=== PATIENT | female | born 1995 | race Caucasian/White ===

== ENCOUNTER 2023-03-03 08:05 | Observation (INO) | payer OTHER, SELFPAY ==
[2023-03-03] VITALS (36 sets, daily range): BP systolic 94–158; BP diastolic 63–85; PULSE 74–121; RESP 12–28; TEMP 36.9–37.2; O2SAT 97–100; BMI 27.4; BMI 28.1
--- NOTE | 2023-03-03 08:31 | ECG_ITS ---
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
--- NOTE | 2023-03-03 08:31 | ED_ITS ---
HPI - Nausea/Vomiting/Diarrhea General Chief complaint: Nausea/Vomiting/Diarrhea Stated complaint: DEHYDRATION/NAUSEA/BLACK OUTS Time Seen by Provider: 03/03/23 08:09 Source: patient Limitations: no limitations History of Present Illness HPI Narrative: 27-year-old female presents for nausea and vomiting which began yesterday. Home Zofran did not help much. No hematemesis. No fever. She believes she passed out at home as well, no injury. No hematemesis and no diarrhea. Related Data Allergies Allergy/AdvReac Type Severity Reaction Status Date / Time nickel Allergy Unknown Verified 03/03/23 08:31 Review of Systems ROS Narrative A ten point review of systems is negative except as noted above. Exam Narrative Exam Narrative: Nurses note and vital signs reviewed and patient is not hypoxic. General: The patient appears well and in no apparent distress. Patient is resting comfortably on cart. Skin: Warm, dry, no pallor noted. There is no rash noted. Head: Normocephalic, atraumatic Eye: Normal conjunctiva, no drainage Ears, Nose, Mouth, and Throat: oral mucosa is moist. Nares patent. Cardiovascular: Regular Rate and Rhythm, mildly tachycardic initially Respiratory: Patient is in no distress, no accessory muscle use, lungs are clear to auscultation, no wheezing, rales or rhonchi Back: non-tender GI: no tenderness to palpation, no masses appreciated. No rebound, guarding, or rigidity noted. Musculoskeletal: The patient has no evidence of calf tenderness, no pitting edema, symmetrical pulses noted bilaterally Neurological: A&O, normal speech Psychiatric: Cooperative Constitutional Vital Signs, click to edit/add: Last Vital Signs Temp 98.6 F 03/03/23 08:12 Pulse 102 H 03/03/23 12:10 Resp 23 03/03/23 12:10 BP 112/75 03/03/23 12:00 Pulse Ox 98 03/03/23 08:20 O2 Del Method Room Air 03/03/23 08:12 Course Vital Signs Vital signs: Vital Signs Temperature 98.6 F 03/03/23 08:12 Pulse Rate 120 H 03/03/23 08:12 Respiratory Rate 21 03/03/23 08:12 Blood Pressure 114/84 03/03/23 08:12 Pulse Oximetry 97 03/03/23 08:12 Oxygen Delivery Method Room Air 03/03/23 08:12 Temperature 98.6 F 03/03/23 08:12 Pulse Rate 102 H 03/03/23 12:10 Respiratory Rate 23 03/03/23 12:10 Blood Pressure 112/75 03/03/23 12:00 Pulse Oximetry 98 03/03/23 08:20 Oxygen Delivery Method Room Air 03/03/23 08:12 MDM - Nausea/Vomiting/Diarrhea MDM Narrative Medical decision making narrative: gallbladder ultrasound shows cholelithiasis but no acute cholecystitis. Bilirubin is elevated at 3.5 and LFTs are mildly elevated. Case discussed with and the patient will be admitted for MRCP. Treatment diagnosis and follow-up were discussed with the patient and her family. Differential Diagnosis Differential diagnosis: Likely gastroenteritis and other (cholelithiasis, acute cholecystitis, pancreatitis) Lab Data Attestation: I reviewed the patient's lab results. Labs: Lab Results 03/03/23 Range/Units 08:28 WBC 13.6 H (4.0-11.0) 10^3/uL RBC 4.75 (4.20-5.40) 10^6/uL Hgb 16.3 H (12.0-16.0) g/dL Hct 48.0 (36.0-48.0) % MCV 101.1 H (81.0-99.0) fL MCH 34.3 H (26.7-34.0) pg MCHC 34.0 (29.9-35.2) g/dL RDW 12.0 (11.0-15.0) % Plt Count 336 (150-450) 10^3/uL MPV 10.0 (9.5-13.5) fL Neut % (Auto) 87.8 H (43.0-75.0) % Lymph % (Auto) 6.5 L (20.5-60.0) % [place] % (Auto) 4.9 (1.7-12.0) % Eos % (Auto) 0.0 L (0.9-7.0) % Baso % (Auto) 0.4 (0.2-2.0) % Neut # (Auto) 11.9 H (1.4-6.5) 10^3/uL Lymph # (Auto) 0.9 L (1.2-3.8) 10^3/uL [place] # (Auto) 0.7 (0.3-0.8) 10^3/uL Eos # (Auto) 0.0 (0.0-0.7) 10^3/uL Baso # (Auto) 0.1 (0.0-0.1) 10^3/uL Abs Immat Gran (auto) 0.06 H (0.00-0.03) 10^3/uL Imm/Tot Granulo (auto) 0.4 (0.0-0.5) % Sodium 138 (136-145) mmol/L Potassium 3.5 (3.5-5.1) mmol/L Chloride 97 L (98-107) mmol/L Carbon Dioxide 26.0 (21.0-32.0) mmol/L Anion Gap 18.5 BUN 6.0 L (7.0-18.0) mg/dL Creatinine 0.95 (0.55-1.02) mg/dL Est GFR ( Amer) >60 (>=60) Est GFR (Non-Af Amer) >60 (>=60) BUN/Creatinine Ratio 6.3 Glucose 98 (74-106) mg/dL Calcium 9.7 (8.5-10.1) mg/dL Total Bilirubin 3.5 H (0.2-1.0) mg/dL Direct Bilirubin 0.6 H* (0.0-0.2) mg/dL AST 161 H (15-37) U/L ALT 113 H (14-59) U/L Alkaline Phosphatase 104 (46-116) U/L Total Protein 8.1 (6.4-8.2) g/dL Albumin 4.0 (3.4-5.0) g/dL Globulin 4.1 g/dL Albumin/Globulin Ratio 1.0 Serum HCG, Qual Negative (NEGATIVE) Discharge Plan Discharge Chief Complaint: Nausea/Vomiting/Diarrhea Clinical Impression: Elevated bilirubin, Abdominal pain, Cholelithiasis Patient Disposition: Admitted As Inpatient Time of Disposition Decision: 13:20 Condition: Good Referrals: CAMELIA ROGER [Primary Care Provider] - 1 week
[2023-03-03] MEDS: 0.9 % SODIUM CHLORIDE 1,000 ML 1000 ML IV (08:43)
[2023-03-03] MEDS: ONDANSETRON PF 4 MG/2 ML VIAL IV (08:44)
[2023-03-03 08:59] LABS: Basophils Absolute Auto 0.1 10^3/uL (0.0-0.1); Basophils Percent Auto 0.4 % (0.2-2.0); Hemoglobin 16.3 g/dL (12.0-16.0); Immature Granulocytes Abs Auto 0.06 10^3/uL (0.00-0.03); Immature Granulocytes Pct Auto 0.4 % (0.0-0.5); Lymphocytes Absolute Auto 0.9 10^3/uL (1.2-3.8); Lymphocytes Percent Auto 6.5 % (20.5-60.0); Mean Corpuscular Hemoglobin 34.3 pg (26.7-34.0); Mean Corpuscular Volume 101.1 fL (81.0-99.0); Monocytes Absolute Auto 0.7 10^3/uL (0.3-0.8); Monocytes Percent Auto 4.9 % (1.7-12.0); Neutrophils Absolute Auto 11.9 10^3/uL (1.4-6.5); Neutrophils Percent Auto 87.8 % (43.0-75.0); Platelet Count 336 10^3/uL (150-450); Red Blood Count 4.75 10^6/uL (4.20-5.40); White Blood Count 13.6 10^3/uL (4.0-11.0)
[2023-03-03 09:09] LABS: Anion Gap 18.5; BUN Creatinine Ratio 6.3; Calcium 9.7 mg/dL (8.5-10.1); Chloride 97 mmol/L (98-107); Estimated GFR (African America >60 (>=60); Estimated GFR (Non-African Ame >60 (>=60); Glucose 98 mg/dL (74-106); Potassium 3.5 mmol/L (3.5-5.1); Sodium 138 mmol/L (136-145)
[2023-03-03 09:14] LABS: Alanine Aminotransferase 113 U/L (14-59); Alkaline Phosphatase 104 U/L (46-116); Aspartate Amino Transferase 161 U/L (15-37); Bilirubin Total 3.5 mg/dL (0.2-1.0); Globulin 4.1 g/dL; Total Protein 8.1 g/dL (6.4-8.2)
[2023-03-03 09:15] LABS: Bilirubin Direct 0.6 mg/dL (0.0-0.2)
[2023-03-03 09:17] LABS: HCG Qualitative NEGATIVE (NEGATIVE)
--- NOTE | 2023-03-03 09:40 | US_ITS ---
The [address] [address] Patient Name: CHRISTINA NUNEZ MRN: [id number] date: 1995 Sex: F Assigned Patient Location: ER Current Patient Location: ER Accession/Order Number: [id number] Exam Date: 03/03/2023 09:59 Report Date: 03/03/2023 11:36 At the request of: LILLY BAUMAN Procedure: US right upper quadrant EXAMINATION: US right upper quadrant HISTORY: nauseous, elevated bilirubin COMPARISON: No relevant comparison available. TECHNIQUE: Transabdominal evaluation of the right upper quadrant. FINDINGS: LIVER: Normal size and echotexture. Color Doppler demonstrates patent hepatic veins. PORTAL VEIN: Duplex Doppler demonstrates normal hepatopetal flow pattern with flow velocity averaging 28 cm/s. GALLBLADDER: Small amount of tiny stones layering within the gallbladder. No wall thickening, free fluid, or tenderness while imaging over the gallbladder. BILIARY: No abnormal dilation or stones. Common bile duct diameter is within normal limits. PANCREASE: No visible mass, abnormal atrophy, or duct dilation. KIDNEY: No hydronephrosis. No visible mass or stones. Size: 8.0 x 4.0 x 4.1 cm US/US right upper quadrant IMPRESSION: 1. Cholelithiasis. No ultrasound evidence of acute cholecystitis. Electronically authenticated by: JENNY VALENZUELA Date: 03/03/2023 11:36
[2023-03-03 13:16] LABS: Amylase 38 U/L (25-115)
--- NOTE | 2023-03-03 14:35 | MR_ITS ---
The [address] [address] Patient Name: CHRISTINA NUNEZ MRN: [id number] date: 1995 Sex: F Assigned Patient Location: MS Current Patient Location: MS Accession/Order Number: [id number] Exam Date: 03/03/2023 16:50 Report Date: 03/03/2023 17:49 At the request of: GAURAV QUIROGA Procedure: MR abdomen wo con EXAMINATION: MR abdomen wo con 03/03/2023 2:40 PM PDT HISTORY: MRCP TECHNIQUE: MRI of the abdomen was performed using multiplanar T2-weighted sequences without administration of intravenous contrast material. MRCP protocol was utilized. 3-D imaging was performed. COMPARISON: Right upper quadrant ultrasound 03/03/2023. CT abdomen/pelvis 07/18/2018. FINDINGS: Lung: Normal. Heart: Normal. ABDOMEN: Biliary Tree: No intra or extra-hepatic biliary ductal dilation. No strictures. Gallbladder: Present and normal. Pancreas: Grossly normal noncontrast appearance of the parenchyma. The pancreatic duct is normal in caliber. No aberrant ductal anatomy is visualized. LIMITED EVALUATION OF REMAINDER OF ABDOMINAL ORGANS: Liver: -Hepatic steatosis. -Ill-defined mildly T2 hyperintense lesion in the anterior periphery of the right lobe of liver measuring 15 mm (series 8001 image 10), not well seen on the CT from 07/18/2018. This lesion demonstrates minimal T1 hypointensity. Spleen: Normal. Adrenal glands: Normal. Kidneys and Ureters: Normal. Stomach/visualized small bowel and colon: No obstruction. Vasculature: Within normal limits. Intra-abdominal lymph nodes: None pathologically enlarged. Ascites: None present. MUSCULOSKELETAL: No acute osseous findings. MR/MR abdomen wo con IMPRESSION: 1. No biliary ductal dilatation or evidence of choledocholithiasis. 2. Nonspecific ill-defined T2 hyperintensity in the right lobe liver measuring up to 15 mm. Recommend liver protocol MRI with and without Eovist contrast for further evaluation. Electronically authenticated by: BIRD CARVER Date: 03/03/2023 17:49
--- NOTE | 2023-03-03 15:00 | P.GSCN_ITS ---
History of Present Illness Consult details Consult date: 03/03/23 Reason for consult: gallstones Narrative: Patient is a 27-year-old female who is seen today for evaluation of abdominal pain and findings of cholelithiasis. She reports episodes of right upper quadra nt pain with associated nausea and vomiting beginning three months ago. This is been intermittent. Often occurs after meals. Today she again developed abdominal pain which had worsened and subsequent presented to the emergency department for evaluation. Lab studies as well as gallbladder ultrasound were obtained. Ultrasound revealed small gallstones. There was no wall thickening or duct dilatation. Total bilirubin is elevated at 3.5 and her white count was 13.6. She also had slight elevation of her transaminases. She essentially now admitted for MRCP and further evaluation. She denies any history of jaundice or pancreatitis. Review of Systems ROS Status of ROS 10 or more systems reviewed and unremarkable except as noted in history and below Meds Home Medications and Allergies Allergies Allergy/AdvReac Type Severity Reaction Status Date / Time nickel Allergy Unknown Verified 03/03/23 08:31 Exam Constitutional Vital Signs, click to edit/add: Last Vital Signs Temp 98.6 F 03/03/23 08:12 Pulse 102 H 03/03/23 12:10 Resp 23 03/03/23 12:10 BP 112/75 03/03/23 12:00 Pulse Ox 98 03/03/23 08:20 O2 Del Method Room Air 03/03/23 08:12 Common normals: no apparent distress General appearance: cooperative [facility] Common normals: normocephalic Neck & C-Spine Common normals: supple Chest Common normals: inspection of chest normal Respiratory Common normals: normal respiratory effort GI Other: Abdomen is soft with mild right upper quadrant tenderness Extremity Common normals: normal to inspection and full ROM Neuro Common normals: oriented x3 Results Labs Labs: Abnormal lab results 03/03/23 Range/Units 08:28 WBC 13.6 H (4.0-11.0) 10^3/uL Hgb 16.3 H (12.0-16.0) g/dL MCV 101.1 H (81.0-99.0) fL MCH 34.3 H (26.7-34.0) pg Neut % (Auto) 87.8 H (43.0-75.0) % Lymph % (Auto) 6.5 L (20.5-60.0) % Eos % (Auto) 0.0 L (0.9-7.0) % Neut # (Auto) 11.9 H (1.4-6.5) 10^3/uL Lymph # (Auto) 0.9 L (1.2-3.8) 10^3/uL Abs Immat Gran (auto) 0.06 H (0.00-0.03) 10^3/uL Chloride 97 L (98-107) mmol/L BUN 6.0 L (7.0-18.0) mg/dL Total Bilirubin 3.5 H (0.2-1.0) mg/dL Direct Bilirubin 0.6 H* (0.0-0.2) mg/dL AST 161 H (15-37) U/L ALT 113 H (14-59) U/L Diabetes panel 03/03/23 Range/Units 08:28 Sodium 138 (136-145) mmol/L Potassium 3.5 (3.5-5.1) mmol/L Chloride 97 L (98-107) mmol/L Carbon Dioxide 26.0 (21.0-32.0) mmol/L BUN 6.0 L (7.0-18.0) mg/dL Creatinine 0.95 (0.55-1.02) mg/dL Glucose 98 (74-106) mg/dL Calcium 9.7 (8.5-10.1) mg/dL AST 161 H (15-37) U/L ALT 113 H (14-59) U/L Alkaline Phosphatase 104 (46-116) U/L Total Protein 8.1 (6.4-8.2) g/dL Albumin 4.0 (3.4-5.0) g/dL Calcium panel 03/03/23 Range/Units 08:28 Calcium 9.7 (8.5-10.1) mg/dL Albumin 4.0 (3.4-5.0) g/dL Pituitary panel 03/03/23 Range/Units 08:28 Sodium 138 (136-145) mmol/L Potassium 3.5 (3.5-5.1) mmol/L Chloride 97 L (98-107) mmol/L Carbon Dioxide 26.0 (21.0-32.0) mmol/L BUN 6.0 L (7.0-18.0) mg/dL Creatinine 0.95 (0.55-1.02) mg/dL Glucose 98 (74-106) mg/dL Calcium 9.7 (8.5-10.1) mg/dL Adrenal panel 03/03/23 Range/Units 08:28 Sodium 138 (136-145) mmol/L Potassium 3.5 (3.5-5.1) mmol/L Chloride 97 L (98-107) mmol/L Carbon Dioxide 26.0 (21.0-32.0) mmol/L BUN 6.0 L (7.0-18.0) mg/dL Creatinine 0.95 (0.55-1.02) mg/dL Glucose 98 (74-106) mg/dL Calcium 9.7 (8.5-10.1) mg/dL Total Bilirubin 3.5 H (0.2-1.0) mg/dL AST 161 H (15-37) U/L ALT 113 H (14-59) U/L Alkaline Phosphatase 104 (46-116) U/L Total Protein 8.1 (6.4-8.2) g/dL Albumin 4.0 (3.4-5.0) g/dL All other labs normal. Imaging Abdominal ultrasound report/results: image reviewed Assessment and Plan Assessment and Plan (1) Elevated bilirubin: (2) Cholelithiasis: Plan As noted above with patient's elevated bilirubin there is some concern of a common bile duct stone. We will therefore obtain an MRCP for further evaluation. Further recommendations will be pending imaging results. Patient may have a clear liquid diet today and this was discussed with the hospitalist.
--- NOTE | 2023-03-03 15:12 | P.HP_ITS ---
Patient not seen on day of admission by physician. Agree with assessment and plan. Admitted with pain and elevated bilirubin. General surgery consulted and will obtain MRCP. Diagnosis: 1. Elevated bilirubin 2. Abdominal pain 3. Cholelithiasis 4. Dehydration H&P: HPI History of Present Illness Chief complaint: INTRACTABLE NV/ABDOMINAL PAIN/ELEV BILI Narrative: Date/Time of Exam: 03/03/23 4485 This is a 27-year-old female patient with a benign past medical history, who presented to the ED this morning due to intractable nausea and vomiting and abdominal pain. The patient reports that she has had intermittent waxing and waning episodes of RUQ abdominal discomfort and nausea and vomiting for the last 2 months. She was seen twice in the ED in [place] and no definitive diagnosis was made. A CT of the abdomen was reportedly done but we do not have that imaging study available at this time. She began to experience colicky right upper quadrant abdominal discomfort again around 10:00 last night followed by nausea and vomiting. She took oral Zofran that has been prescribed but c ontinued to suffer episodes of emesis with associated heartburn. After having a large emesis at around 7:00 this morning she presented to the ED for further evaluation. Work-up in the ED revealed mild leukocytosis (13.6), significantly elevated total bili (3.5) with elevated direct bili as well (0.6), AST/ALT were also elevated (161/113), Alk Phos WNL. A RUQ ultrasound was obtained which did not evidence biliary obstruction but did note cholelithiasis without acute cholecystitis. Dr. Gonzalez, general surgeon, was contacted by the ED regarding this patient. He recommended the patient be admitted for an MRCP and possible surgical intervention. She is being admitted to the hospitalist service as an inpatient for suspected biliary obstruction, intractable nausea and vomiting and abdominal pain. At the time of my exam the patient is resting in bed. She is not in any acute distress. She reports that her nausea has been adequately adequately controlled with IV Zofran since arrival in the ED. She continues to have intermittent colicky pain and diffuse generalized tenderness of the right lower quadrant. The patient expresses frustration that this has been going on for some time wi thout a diagnosis. She is aware that surgical intervention and/or transfer to a higher level of care with GI availability is possible. She denies any CP, SOB, palpitations, F/C, recent diarrhea. Review of Systems ROS Status of ROS 10 or more systems reviewed and unremarkable except as noted in history and below PFSH PFSH Surgical History Hx of appendectomy ?Z90.49 - Acquired absence of other specified parts of digestive tract (ICD- 10) Family History Grandfather Family history of cancer Grandfather No problems noted. Grandmother Family history of cancer Family history of myocardial infarction Social History Within the past year, how often did you have a drink containing alcohol: 2-3 times a week Within the past year, how many standard drinks containing alcohol did you have on a typical day: 1 or 2 Within the past year, how often did you have six or more drinks on one occasion: never Total score: 0 Score interpretation: Questions 2 and 3 are 0. It can be assumed that the patient's drinking is below the recommended limits. However, please confirm the accuracy of the patient's alcohol intake over the last few months. 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 Known occupational exposures/hazards: No Highest level of school completed/degree received: some college, no degree Do you want help with school or training: No Are you now , , , , never or living with a partner: In a typical week, how many times do you talk on the telephone with family, friends, or neighbors: 3 or more times per week How often do you get together with friends or relatives: 3 or more times per week How often do you attend mormonism or hindu services: never Do you belong to any clubs or organizations such as mormonism groups unions, fraternal or athletic groups, or school groups: no Total score: 1 Score interpretation: A score of less than or equal to 1 indicates the most socially isolated. Little interest or pleasure in doing things: not at all Feeling down, depressed, or hopeless: not at all Feel stressed/tense/nervous/anxious/difficulty sleeping: only a little Life stressors: divorce/separation Due to disability, difficulty making decisions: No Do you think of yourself as: straight/heterosexual Gender Identity: female Meds Home Medications and Allergies Home Medications Medication Instructions Recorded Confirmed Type magnesium oxide 400 mg (241.3 mg 400 mg PO QDAY 03/03/23 03/03/23 History magnesium) tablet Allergies Allergy/AdvReac Type Severity Reaction Status Date / Time nickel Allergy Unknown Verified 03/03/23 08:31 Exam Constitutional Vital Signs, click to edit/add: Last Vital Signs Temp 98.4 F 03/03/23 14:49 Pulse 88 03/03/23 14:49 Resp 14 03/03/23 14:49 BP 141/63 03/03/23 14:49 Pulse Ox 100 03/03/23 14:49 O2 Del Method Room Air 03/03/23 14:49 Common normals: no apparent distress, oriented x3, alert and well nourished General appearance: cooperative Orientation/consciousness: Yes awake HENMT Common normals: normocephalic, head/scalp atraumatic, hearing grossly normal bilaterally, external ears normal, external nose normal and moist oral mucous m embranes Head and scalp: normocephalic and atraumatic Face and sinus: normal facial exam Nose: external nose normal External ear: external ears normal Eye Common normals: PERRL, EOMs intact bilaterally, conjunctivae normal and no scleral icterus General eye: normal appearance of both eyes Alignment: alignment normal Eyelid: eyelids normal Conjunctiva: conjunctiva(e) normal Pupil: PERRL Neck & C-Spine Common normals: full ROM, supple and no JVD Chest Common normals: inspection of chest normal Chest: symmetrical chest wall rise Respiratory Common normals: normal respiratory effort, no retractions, no use of accessory muscles and clear to auscultation bilaterally Effort & inspection: able to speak in complete sentences Auscultation: clear to auscultation bilaterally Cardio Common normals: no JVD, regular rate, regular rhythm, S2 normal heart sound, no clicks, no murmurs, no rub and peripheral pulses 2+ throughout Rate: regular rate Rhythm: regular rhythm Heart sounds: S2 normal; S1 abnormal (split ) Peripheral pulses: pulses 2+ throughout GI Common normals: Normal to inspection, nondistended, normoactive bowel sounds present, soft to palpation, no hepatosplenomegaly, no masses and no bruits Palpation: soft, tender Details: RLQ (mild, diffuse) and RUQ (exquisite, focal); negative for Tidwell's sign and no hepatosplenomegaly; not firm, no guarding and not rigid Bladder/kidney exam: bladder normal to palpation Extremity Common normals: normal capillary refill and no pedal edema General: normal exam except as noted; no clubbing and no cyanosis Neuro [place] Coma Scale: GCS not evaluated Common normals: oriented x3, CN's II-XII intact bilaterally, moves all extremities, no focal motor deficits and no sensory deficits noted Sensorium/orientation: awake and alert Speech: speech normal Motor exam: strength 5/5 throughout Psych Common normals: mental status grossly normal, thought process normal, affect normal and activity/motor behavior normal Thought process: normal thought process Results Labs Labs: Short CBC 03/03/23 Range/Units 08:28 WBC 13.6 H (4.0-11.0) 10^3/uL Hgb 16.3 H (12.0-16.0) g/dL Hct 48.0 (36.0-48.0) % Plt Count 336 (150-450) 10^3/uL BMP 03/03/23 08:28 Sodium 138 Potassium 3.5 Chloride 97 L Carbon Dioxide 26.0 BUN 6.0 L Creatinine 0.95 Glucose 98 Calcium 9.7 Liver Function 03/03/23 Range/Units 08:28 Total Bilirubin 3.5 H (0.2-1.0) mg/dL Direct Bilirubin 0.6 H* (0.0-0.2) mg/dL AST 161 H (15-37) U/L ALT 113 H (14-59) U/L Alkaline Phosphatase 104 (46-116) U/L Albumin 4.0 (3.4-5.0) g/dL Pulse Oximetry Attestation: I have reviewed the pertinent pulse oximetry results. ECG Attestation: ?I have reviewed the pertinent ECG results. Prior ECG tracings: not available for review Interpretation: Interpretive Statements 1120 Sinus tachycardia 1570 with occasional ventricular premature complexes [address] depression 4164 Twave abnormality, possible anterior ischemia 9150 abnormal ECG Imaging US - abdomen: Attestation: I have reviewed the pertinent imaging results. Radiologist's impression: IMPRESSION: 1. Cholelithiasis. No ultrasound evidence of acute cholecystitis. Assessment and Plan Assessment and Plan (1) Biliary obstruction: Assessment and Plan: SUSPECTED * Adm inpatient * Biliary obstruction suspected d/t elevated Bili, transaminitis, and N/V/RUQ pain symptoms * US RUQ - No noted biliary obstruction. Cholelithiasis w/o acute cholecystitis * Consult Gen Surgery - we appreciate Dr Gonzalez's care of this pt * Obtain MRCP now per surgery recommendation * Possible tx for ERCP pending clinical course * Clear liquid diet for now per surgery. NPO at midnight in case surgical procedure is indicated tomorrow * VS q4h - risk for ascending cholangitis requires careful monitoring * MS IVP for pain * LR IVF to maintain adequate hydration * CBC, CMP daily (2) Tachycardia: Assessment and Plan: ACUTE * Sinus tach * Unclear etiology, but anxiety/dehydration within the differential * Split S1 noted on exam * EKG w/ moderate ST depression and T-wave abnormality of unclear chronicity or etiology. No previous EKG * Check HsTnI, TSH, Magnesium level now. Consider serial EKGs/HsTnIs * Low clinical concern for ACS d/t pt's age and clinical presentation
[2023-03-03 16:09] LABS: Troponin I High Sensitivity 5.1 pg/mL (4.0-51.3)
[2023-03-03 16:11] LABS: Magnesium 1.6 mg/dL (1.8-2.4); Thyroid Stimulating Hormone 0.717 uIU/mL (0.358-3.740)
[2023-03-03] MEDS: LACTATED RINGER'S SOLUTION 1,000 ML 125 ML IV (18:19)
[2023-03-04] VITALS (7 sets, daily range): BP systolic 110–132; BP diastolic 70–78; PULSE 69–88; RESP 16; TEMP 36.7–36.8; O2SAT 96–98
[2023-03-04] MEDS: LACTATED RINGER'S SOLUTION 1,000 ML 125 ML IV ×2 (01:27→09:12)
[2023-03-04 05:10] LABS: Basophils Absolute Auto 0.1 10^3/uL (0.0-0.1); Basophils Percent Auto 0.7 % (0.2-2.0); Eosinophils Absolute Auto 0.1 10^3/uL (0.0-0.7); Eosinophils Percent Auto 1.1 % (0.9-7.0); Hematocrit 38.7 % (36.0-48.0); Hemoglobin 12.7 g/dL (12.0-16.0); Immature Granulocytes Abs Auto 0.03 10^3/uL (0.00-0.03); Immature Granulocytes Pct Auto 0.4 % (0.0-0.5); Lymphocytes Absolute Auto 2.8 10^3/uL (1.2-3.8); Lymphocytes Percent Auto 37.8 % (20.5-60.0); Mean Corpuscular HGB Conc 32.8 g/dL (29.9-35.2); Mean Corpuscular Hemoglobin 34.2 pg (26.7-34.0); Mean Corpuscular Volume 104.3 fL (81.0-99.0); Mean Platelet Volume 9.9 fL (9.5-13.5); Monocytes Absolute Auto 0.7 10^3/uL (0.3-0.8); Monocytes Percent Auto 9.4 % (1.7-12.0); Neutrophils Absolute Auto 3.8 10^3/uL (1.4-6.5); Neutrophils Percent Auto 50.6 % (43.0-75.0); Platelet Count 226 10^3/uL (150-450); Red Blood Count 3.71 10^6/uL (4.20-5.40); White Blood Count 7.5 10^3/uL (4.0-11.0)
[2023-03-04 05:37] LABS: Alanine Aminotransferase 66 U/L (14-59); Albumin Level 2.8 g/dL (3.4-5.0); Alkaline Phosphatase 67 U/L (46-116); Anion Gap 10.4; Aspartate Amino Transferase 67 U/L (15-37); BUN Creatinine Ratio 7.2; Bilirubin Total 3.9 mg/dL (0.2-1.0); Calcium 8.3 mg/dL (8.5-10.1); Chloride 103 mmol/L (98-107); Estimated GFR (African America >60 (>=60); Estimated GFR (Non-African Ame >60 (>=60); Globulin 2.9 g/dL; Glucose 72 mg/dL (74-106); Potassium 3.4 mmol/L (3.5-5.1); Sodium 136 mmol/L (136-145); Total Protein 5.7 g/dL (6.4-8.2)
--- NOTE | 2023-03-04 07:00 | ECG_ITS ---
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
--- NOTE | 2023-03-04 11:21 | CM.NOTE ---
Rounds made with Dr. Melvin, reached out to Dr. Barbosa for further plan of care. Pt will have Hida scan today and MRI, will await results for plan of care. No discharge needs have been identified.
--- NOTE | 2023-03-04 11:55 | MR_ITS ---
The [address] [address] Patient Name: CHRISTINA NUNEZ MRN: [id number]:[id number] date: 1995 Sex: F Assigned Patient Location: MS Current Patient Location: MS Accession/Order Number: [id number] Exam Date: 03/04/2023 11:55 Report Date: 03/04/2023 13:29 At the request of: GAURAV QUIROGA Procedure: MR abdomen wo/w con EXAM: MR abdomen wo/w con HISTORY: ABD pain use Eovist contrast INDICATION: ABD pain use Eovist contrast COMPARISON: 03/03/2023 TECHNIQUE: MRI of the abdomen was performed utilizing multiple pulse sequences in multiple planes before and after intravenous gadolinium contrast. Dynamic postcontrast technique was utilized. FINDINGS: Lung bases: Lung bases are clear. No pleural effusion. GI upper: Unremarkable. Liver: Normal size and contour. No definite arterially hyperenhancing lesion is appreciated. Previously noted T2 hyperintense lesion in segment 8 is less conspicuous on the current study. Hepatic steatosis. Gallbladder: No significant abnormality. No cholelithiasis. Biliary system: No intra or extrahepatic biliary ductal dilatation. Spleen: Normal size. Pancreas: Unremarkable. Adrenal glands: Normal adrenal glands. Kidneys/ureters: Normal contours. No hydronephrosis. No nephrolithiasis or ureterolithiasis. Vessels: No aneurysm. Lymph Nodes: No lymphadenopathy. Lower GI: Unremarkable. Peritoneal cavity: No free fluid or pneumoperitoneum. Bones: No acute bony abnormality. Soft tissues: No acute abnormality. Additional findings: None. MR/MR abdomen wo/w con IMPRESSION: The study is degraded due to motion artifact. No definite arterially hyperenhancing lesion is appreciated. Electronically authenticated by: IVY VELASQUEZ Date: 03/04/2023 13:29
--- NOTE | 2023-03-04 13:00 | NM_ITS ---
The [address] [address] Patient Name: CHRISTINA NUNEZ MRN: [id number] date: 1995 Sex: F Assigned Patient Location: Current Patient Location: Accession/Order Number: [id number] Exam Date: 03/04/2023 13:00 Report Date: 03/04/2023 15:44 At the request of: GAURAV QUIROGA Procedure: NM hepatobiliary w pharm HIDA SCAN WITH GALLBLADDER EJECTION FRACTION HISTORY: Abdominal Pain. COMPARISON: Ultrasound 03/03/2023. METHOD: Following IV injection of 6.0 mCi of [id number], anterior imaging of the abdomen was acquired for 60 minutes. After the gallbladder was visualized the patient was given Boost and the gallbladder ejection fraction was calculated. FINDINGS: There is satisfactory uptake of radiopharmaceutical by the liver. The gallbladder, bile duct, and bowel are seen in the expected period of time and sequence. The gallbladder ejection fraction is 90%. NM/NM hepatobiliary w pharm IMPRESSION: Findings which can be seen with hyperkinetic gallbladder. Electronically authenticated by: SANYA XAVIER Date: 03/04/2023 15:44
--- NOTE | 2023-03-04 14:03 | P.DS_ITS ---
Patient seen and examined, agree with assessment below. Admitted with abdominal pain and elevated bilirubin. US showed stones and general surgery consulted. MRCP negative. Labs improved. Likely had stone and passed. Mass on MRI but contrast study normal. HIDA normal. Discharge home and f/u with surgeon as outpatient. DS: Providers Provider Date of admission: 03/03/23 13:55 Primary care physician: CAMELIA ROGER Admitting clinician: Kelin Vaughan Attending physician on admission: Brijesh Melvin Consults: 03/03/23 Consult to General Surgeon Routine Consulting Provider: Benton Gonzalez Reason for consultation: Cholelithiasis Has provider been notified: Yes 03/03/23 14:26 Consult to General Surgeon Routine Consulting Provider: Benton Gonzalez Reason for consultation: Suspected billiary obstruction Has provider been notified: Yes Attending physician on discharge: Brijesh Melvin Discharging clinician: Kelin Vaughan Anticipated date of discharge: 03/04/23 DS: Diagnosis Discharge Diagnosis (1) Biliary obstruction: Assessment and plan: SUSPECTED (2) Liver mass: (3) Cholelithiasis: (4) Elevated bilirubin: (5) Abdominal pain: (6) Tachycardia: DS: Summary Hospital Course Hospital Course: The patient was admitted with intractable nausea and vomiting with associated Right upper quadrant colicky type pain. She has suffered with this discomfort for a few months and has had previous outpatient work-ups at the [facility]. As the patient had a significantly elevated bilirubin and liver enzymes and the presence of cholelithiasis (without acute cholecystitis) on US, we suspected a biliary obstruction and the patient was admitted to to the hospit al for an MRCP and general surgery was consulted. The MRCP was negative for choledocholithiasis, but a lesion was noted on the right side of the liver and further MRI imaging was recommended. An MRI with and without contrast was obtained on the day of discharge which was unable to appreciate an arterially hyperenhancing lesion. The previously noted lesion was less conspicuous on the study with contrast. Dr. Gonzalez, general surgeon, recommended obtaining a HIDA scan as well as we continue to suspect possible intermittent biliary obstruction. HIDA scan was unremarkable with an EF of 90%. She also had an incidental finding of sinus tachycardia that was persistent but asymptomatic. An EKG was initially somewhat concerning with ST deviation with possible ischemia. As the patient was completely asymptomatic and is quite young we had low clinical suspicion of ACS. We did repeat an EKG this morning and all abnormalities have completely resolved. High-sensitivity troponin I was unremarkable, as was a TSH. Tachycardia was likely driven by anxiety and pain with subsequent rate associated EKG changes. No clinical concern for cardiac abnormality at this time. As the patient's nausea and vomiting have resolved and her right upper quadrant pain is significantly improved, she is being discharged home in stable condition. Her liver enzymes are trending down although total bili remains elevated. She should follow-up with Dr. Gonzalez next week and obtain a CMP on Tuesday prior to that visit for continued liver monitoring. She should also follow up with her PCP in 1-2 weeks. We defer further work-up to her outpatient care team. Status at Discharge Functional status at discharge: independent ambulation Overall status at discharge: patient is back to baseline Time Spent with Patient Time attestation: Total time spent providing and/or coordinating discharge services: Time spent: greater than 30 minutes Specific discharge activities: Extensive discussion regarding outpatient plan of care and follow up, coordination of care services Exam Constitutional Vital Signs, click to edit/add: Last Vital Signs Temp 98.2 F 03/04/23 08:00 Pulse 74 03/04/23 09:50 Resp 16 03/04/23 08:00 BP 110/78 03/04/23 08:00 Pulse Ox 96 03/04/23 08:00 O2 Del Method Room Air 03/04/23 02:56 Common normals: no apparent distress, oriented x3 and alert General appearance: cooperative Orientation/consciousness: Yes awake HENIL Common normals: normocephalic and head/scalp atraumatic Head and scalp: normocephalic and atraumatic Eye Common normals: PERRL, EOMs intact bilaterally, conjunctivae normal and no scleral icterus Conjunctiva: conjunctiva(e) normal Pupil: PERRL Neck & C-Spine Common normals: no JVD Respiratory Common normals: normal respiratory effort, no use of accessory muscles and clear to auscultation bilaterally Effort & inspection: able to speak in complete sentences and symmetric chest movement Auscultation: clear to auscultation bilaterally Cardio Common normals: no JVD, regular rate, regular rhythm, S1 normal heart sound, S2 normal heart sound, no gallops, no clicks, no rub and peripheral pulses 2+ throughout Rate: regular rate Rhythm: regular rhythm Heart sounds: S1 normal and S2 normal Peripheral pulses: pulses 2+ throughout GI Common normals: Normal to inspection, nondistended, normoactive bowel sounds present and soft to palpation Palpation: soft and tender Details: RUQ (Improving); no guarding, no hepatomegaly, no ascites present and no rebound tenderness present Bladder/kidney exam: bladder normal to palpation Extremity Common normals: normal to inspection, full ROM, normal capillary refill and no pedal edema General: no clubbing and no cyanosis Neuro Common normals: oriented x3, CN's II-XII intact bilaterally, moves all extremities, no focal motor deficits and no sensory deficits noted Sensorium/orientation: awake and alert Speech: speech normal Psych Common normals: mental status grossly normal and activity/motor behavior normal Appearance: grossly normal DS: Data Data Completed and Pending Labs on day of discharge: Labs from last 24 hours 03/04/23 03/03/23 04:04 08:28 WBC 7.5 RBC 3.71 L Hgb 12.7 Hct 38.7 MCV 104.3 H MCH 34.2 H MCHC 32.8 RDW 12.0 Plt Count 226 MPV 9.9 Neut % (Auto) 50.6 Lymph % (Auto) 37.8 Mckinley % (Auto) 9.4 Eos % (Auto) 1.1 Baso % (Auto) 0.7 Neut # (Auto) 3.8 Lymph # (Auto) 2.8 Mckinley # (Auto) 0.7 Eos # (Auto) 0.1 Baso # (Auto) 0.1 Abs Immat Gran (auto) 0.03 Imm/Tot Granulo (auto) 0.4 Sodium 136 Potassium 3.4 L Chloride 103 Carbon Dioxide 26.0 Anion Gap 10.4 BUN 6.0 L Creatinine 0.83 Est GFR ( Amer) >60 Est GFR (Non-Af Amer) >60 BUN/Creatinine Ratio 7.2 Glucose 72 L Calcium 8.3 L Magnesium 1.6 L Total Bilirubin 3.9 H AST 67 H ALT 66 H Alkaline Phosphatase 67 Troponin I High Sens 5.1 Total Protein 5.7 L Albumin 2.8 L Globulin 2.9 Albumin/Globulin Ratio 1.0 TSH 0.717 Discharge Plan Discharge Disposition: Home, Self-Care Condition: Good Discharge Medications: New ondansetron HCl 4 mg tablet 4 mg PO Q8H 5 Days Qty: 15 0RF Continued magnesium oxide 400 mg (241.3 mg magnesium) tablet 400 mg PO QDAY Activity: increase activity as tolerated Diet: advance to your usual diet Diet Detail: diet as tolerated Patient Instructions: Ondansetron (By mouth, Into the mouth), Abdominal Pain (DC) Activity Restrictions/Additional Instructions: - Obtain CMP on Tue03/07/23 (order attached), results to PCP and to Dr Gonzalez Forms: Portal Instructions Follow Up Appointments: - Follow up with Dr Gonzalez within 1 week [phone] - Follow up with your PCP Dr Roger in 1-2 weeks [phone]
--- NOTE | 2023-03-07 15:29 | CM.DCFOLLOWU ---
Person spoke with:patient How are you feeling? well How is your pain? controlled Did you understand your discharge instructions? yes Do you have any questions about your discharge instructions? no Were you given any prescriptions at discharge? yes Were you able to get your prescriptions filled? yes Do you understand how to take your medications as ordered? yes Do you have any questions about your follow up appointment and do you plan to keep your follow up appointment? no questions, coming in for testing today and keeping follow ups Is there anything else that you would like to discuss? no Questions/Comments/Concerns/Other:
== END 2023-03-04 16:21 | disposition home or self-care (01) ==
LOC: ER 13:20 → MS 14:12
PROVIDERS: Admitting Provider Family Medicine; Emergency Provider Emergency Medicine; PCP Family Medicine; Visit Provider Nurse Practitioner
DX: K80.51 Calculus of bile duct without cholangitis or cholecystitis with obstruction (principal); E80.6 Other disorders of bilirubin metabolism; E86.0 Dehydration; R10.9 Unspecified abdominal pain; R00.0 Tachycardia, unspecified; F17.290 Nicotine dependence, other tobacco product, uncomplicated; Z90.49 Acquired absence of other specified parts of digestive tract
CPT/HCPCS: 36415; 74181; 74183; 76705; 78227; 80048; 80053; 80076; 82150; 83690; 83735; 84443; 84484; 84703; 85025; 93005; 96361; 96374; 99285; A9537; A9581; G0378

== ENCOUNTER 2023-03-07 15:55 | Outpatient (OUT) | payer OTHER, SELFPAY ==
[2023-03-07 16:51] LABS: Alanine Aminotransferase 88 U/L (14-59); Albumin Globulin Ratio 0.9; Albumin Level 3.1 g/dL (3.4-5.0); Alkaline Phosphatase 73 U/L (46-116); Aspartate Amino Transferase 115 U/L (15-37); Bilirubin Direct 0.2 mg/dL (0.0-0.2); Bilirubin Total 0.8 mg/dL (0.2-1.0); Globulin 3.4 g/dL; Total Protein 6.5 g/dL (6.4-8.2)
== END 2023-03-07 15:56 | disposition home or self-care (01) ==
LOC: LAB 15:57
PROVIDERS: PCP Family Medicine; Visit Provider Surgery
DX: R10.11 Right upper quadrant pain (principal); R11.2 Nausea with vomiting, unspecified
CPT/HCPCS: 36415; 80076

== ENCOUNTER 2023-03-17 14:40 | Observation (INO) | payer OTHER, SELFPAY ==
[2023-03-17] VITALS (8 sets, daily range): BP systolic 102–127; BP diastolic 70–93; PULSE 87–108; RESP 15–20; TEMP 36.8–37.1; O2SAT 95–100; BMI 28.3; BMI 62.3
--- NOTE | 2023-03-17 15:06 | US_ITS ---
[address] [address] Patient Name: CHRISTINA NUNEZ MRN: [id number] date: 1995 Sex: F Assigned Patient Location: ER Current Patient Location: ER Accession/Order Number: [id number] Exam Date: 03/17/2023 16:00 Report Date: 03/17/2023 17:32 At the request of: STEVE VEGAS Procedure: US right upper quadrant PROCEDURE: US right upper quadrant, 03/17/2023 4:00 PM EDT CLINICAL INDICATIONS: Right upper quadrant abdominal pain, history of gallstones, nausea, vomiting, elevated bilirubin COMPARISON: Sonogram 03/03/2023 TECHNIQUE: Right upper quadrant abdominal sonogram FINDINGS: Visualized pancreas is unremarkable. No ductal dilatation is seen. Portions of head and tail segments are obscured. Right lobe of liver measures up to 15.6 cm. Indeterminate 1.0 x 1.2 x 1.1 cm hypoechoic lesion within the right lobe of the liver is noted not seen on prior sonogram. This corresponds with previous MRI assessment. Visualized portal vein is patent with antegrade phasic flow, normal velocity. Common bile duct 0.3 cm. Gallbladder is normal in caliber. Few echoes are present dependently near the gallbladder neck level. Artifact, minimal sludge and/or calculi are all considerations. Wall thickening, localized pain is not evident. Right kidney is normal in morphology. It measures 8.5 x 4.9 x 4.6 cm. No hydronephrosis or shadowing calculus is identified. Focal renal abnormality is not demonstrated. No free fluid is evident. US/US right upper quadrant IMPRESSION: 1. Indeterminate 1.2 cm right hepatic hypodense lesion. This corresponds with lesion seen on prior MRI assessment. 2. Few echoes are present near the gallbladder neck, undetermined origin. Artifact, minimal sludge, macrocalcification are present this pattern. Additional shadowing calculus is not evident. No wall thickening localized pain or bile duct dilatation. 3. No additional right upper quadrant abdominal pathology Electronically authenticated by: JUDY MAHAN Date: 03/17/2023 17:32
[2023-03-17] MEDS: HYOSCYAMINE SULFATE 0.125 MG TAB.SUBL SL (15:22)
[2023-03-17] MEDS: ONDANSETRON PF 4 MG/2 ML VIAL IV ×2 (15:22→18:27)
[2023-03-17] MEDS: 0.9 % SODIUM CHLORIDE 1,000 ML 999 ML IV (15:22)
--- NOTE | 2023-03-17 15:29 | PC.NURSE ---
pt presents to ED because patient states that she was here on the and had ct scans and ultrasound done and was told she has gallstones and was admitted to the hospital overnight and given antibiotics and fluids. patient states that she was seeing dr. garcia about her gallbladder and he told the patient that instead of removing the gallstones because they keep coming back that he was just going to remove the gallbladder. patient states that she wasn't told by the nurse that dr. garcia is out of office and that she needs to follow up with dr. romero. patient just recently scheduled to follow up with him but can't get in march. patient states today she woke up with horrible right upper quadrant pain as well as nausea and vomiting. pt states she does have zofran at home but everytimes he takes it it makes her sick.
--- NOTE | 2023-03-17 15:41 | ED.ABDPAIN1 ---
HPI - Abdominal Pain General Chief Complaint: Abdominal Pain Stated Complaint: NAUSEA Time Seen by Provider: 03/17/23 14:50 Source: patient Mode of arrival: walk-in Limitations: no limitations History of Present Illness HPI narrative: patient with RUQ abdominal pain that has been intermittent for the last few weeks. She was evaluated in our ED two weeks ago and admitted for gallstone related abdominal pain. MRCP and HIDA were without worrisome findings so the patient was discharged home. Plan was for out-patient cholecystectomy but Dr Gonzalez, who saw the patient in the hospital, was not available. She made an appointment to be seen with Dr Bustos in mid March. But the pain, nausea and vomiting returned last night and she was unable to keep anything down all night into this morning and she came back to the ED to be evaluated. No fever or chills. Patient last ate yesterday afternoon. She tried sipping water and sprite this morning but keeps vomiting. She admitted that she ate chicken fingers and other fried foods prior to the return of the symptoms. Prior to that she had been maintaining a soft bland diet. Related Data Home Medications Medication Instructions Recorded Confirmed magnesium oxide 400 mg (241.3 mg 400 mg PO QDAY 03/03/23 03/17/23 magnesium) tablet Previous Rx's Medication Instructions Recorded ondansetron HCl 4 mg tablet 4 mg PO Q8H 5 days #15 tabs 03/04/23 Allergies Allergy/AdvReac Type Severity Reaction Status Date / Time nickel Allergy Unknown Verified 03/03/23 08:31 [facility] Medical History (Updated 03/17/23 @ 18:24 by Steve Vegas) Tachycardia ?R00.0 - Tachycardia, unspecified (ICD-10) Surgical History Hx of appendectomy ?Z90.49 - Acquired absence of other specified parts of digestive tract (ICD-10) Family History Grandfather Family history of cancer Grandfather No problems noted. Grandmother Family history of cancer Family history of myocardial infarction Social History Within the past year, how often did you have a drink containing alcohol: 2-3 times a week Within the past year, how many standard drinks containing alcohol did you have on a typical day: 1 or 2 Within the past year, how often did you have six or more drinks on one occasion: never Total score: 0 Score interpretation: Questions 2 and 3 are 0. It can be assumed that the patient's drinking is below the recommended limits. However, please confirm the accuracy of the patient's alcohol intake over the last few months. 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 Known occupational exposures/hazards: No Highest level of school completed/degree received: some college, no degree Do you want help with school or training: No Are you now , , , , never or living with a partner: In a typical week, how many times do you talk on the telephone with family, friends, or neighbors: 3 or more times per week How often do you get together with friends or relatives: 3 or more times per week How often do you attend congregational or yazdanism services: never Do you belong to any clubs or organizations such as congregational groups unions, fraternal or athletic groups, or school groups: no Total score: 1 Score interpretation: A score of less than or equal to 1 indicates the most socially isolated. Little interest or pleasure in doing things: not at all Feeling down, depressed, or hopeless: not at all Feel stressed/tense/nervous/anxious/difficulty sleeping: only a little Life stressors: divorce/separation Due to disability, difficulty making decisions: No Do you think of yourself as: straight/heterosexual Gender Identity: female Exam Narrative Exam Narrative: Nurses notes and vital signs reviewed and patient is not hypoxic. afebrile General: uncomfortable. Skin: Warm, dry, no pallor noted. Head: Normocephalic, atraumatic. Eye: Pupils are equal, round and EOMI. No scleral icterus. Ears, Nose, Mouth, and Throat: Oral mucosa is dry Cardiovascular: borderline tachycardia at 100bpm Respiratory: No accessory muscle use or respiratory distress. Lungs are clear to auscultation, no wheezing, rales or rhonchi Back: No CVA tenderness Musculoskeletal: normal ROM GI: Abdomen is soft, mildly distended. Normal bowel sounds. No masses appreciated. RUQ tenderness to palpation. No rebound, guarding, or rigidity noted. Neurological: A&O x4. No cranial nerve dysfunction observed. No truncal ataxia. Moves all extremities. Sensation intact. Psychiatric: Cooperative and interactive. Normal mood and affect. Constitutional Vital Signs, click to edit/add: Last Vital Signs Temp 98.7 F 03/17/23 14:51 Pulse 95 H 03/17/23 17:35 Resp 20 03/17/23 14:51 BP 102/71 03/17/23 17:35 Pulse Ox 99 03/17/23 17:35 O2 Del Method Room Air 03/17/23 14:51 Course Vital Signs Vital signs: Vital Signs Temperature 98.7 F 03/17/23 14:51 Pulse Rate 99 H 03/17/23 14:51 Respiratory Rate 20 03/17/23 14:51 Blood Pressure 127/93 H 03/17/23 14:51 Pulse Oximetry 95 03/17/23 14:51 Oxygen Delivery Method Room Air 03/17/23 14:51 Temperature 98.7 F 03/17/23 14:51 Pulse Rate 95 H 03/17/23 17:35 Respiratory Rate 20 03/17/23 14:51 Blood Pressure 102/71 03/17/23 17:35 Pulse Oximetry 99 03/17/23 17:35 Oxygen Delivery Method Room Air 03/17/23 14:51 MDM - Abdominal Pain MDM Narrative Medical decision making narrative: peripheral IV established and blood drawn and sent for testing. The patient was ordered to undergo gallbladder ultrasound. She was given normal saline IV fluid, IV Zofran and oral dissolvable Levsin for her pain. CBC with normal white blood cell count but left shift is noted. CMP with normal electrolytes and renal function but elevated LFTs and elevated total bilirubin. Direct bilirubin is . Urine shows ketones, protein and bilirubin. There is also some occult blood. No leukocyte esterase or nitrites to suggest acute urinary tract infection. GB US = normal CBD, no GB wall thickening, negative's putnam's sign. Patient informed of results - she is still having nausea and vomiting and cannot keep down anything PO despite getting NS IVF and anti-emetic. Call placed to the telehospitalist to discuss admission - Dr Burnham agreed to admit the patient to Dr Campos's service - Dr Campos will see the patient in the morning. Presentation and findings are similar to her admission a few weeks ago and the HIDA and MRCP did not show anything worrisome. Will treat with NS IVF and anti-emetics with dietary adjustment when she is able to eat. Medical Records Attestation: I reviewed the patient's medical records. Lab Data Attestation: I reviewed the patient's lab results. Labs: Lab Results 03/17/23 03/17/23 Range/Units 15:27 15:55 WBC 8.5 (4.0-11.0) 10^3/uL RBC 4.68 (4.20-5.40) 10^6/uL Hgb 16.2 H (12.0-16.0) g/dL Hct 47.4 (36.0-48.0) % MCV 101.3 H (81.0-99.0) fL MCH 34.6 H (26.7-34.0) pg MCHC 34.2 (29.9-35.2) g/dL RDW 11.9 (11.0-15.0) % Plt Count 220 (150-450) 10^3/uL MPV 9.7 (9.5-13.5) fL Neut % (Auto) 84.0 H (43.0-75.0) % Lymph % (Auto) 9.8 L (20.5-60.0) % [place] % (Auto) 5.0 (1.7-12.0) % Eos % (Auto) 0.1 L (0.9-7.0) % Baso % (Auto) 0.7 (0.2-2.0) % Neut # (Auto) 7.1 H (1.4-6.5) 10^3/uL Lymph # (Auto) 0.8 L (1.2-3.8) 10^3/uL [place] # (Auto) 0.4 (0.3-0.8) 10^3/uL Eos # (Auto) 0.0 (0.0-0.7) 10^3/uL Baso # (Auto) 0.1 (0.0-0.1) 10^3/uL Abs Immat Gran (auto) 0.03 (0.00-0.03) 10^3/uL Imm/Tot Granulo (auto) 0.4 (0.0-0.5) % Sodium 141 (136-145) mmol/L Potassium 3.7 (3.5-5.1) mmol/L Chloride 103 (98-107) mmol/L Carbon Dioxide 23.4 (21.0-32.0) mmol/L Anion Gap 18.3 BUN 6.0 L (7.0-18.0) mg/dL Creatinine 0.71 (0.55-1.02) mg/dL Est GFR ( Amer) >60 (>=60) Est GFR (Non-Af Amer) >60 (>=60) BUN/Creatinine Ratio 8.5 Glucose 93 (74-106) mg/dL Calcium 9.0 (8.5-10.1) mg/dL Total Bilirubin 3.6 H (0.2-1.0) mg/dL Direct Bilirubin 0.9 H* (0.0-0.2) mg/dL AST 214 H (15-37) U/L ALT 100 H (14-59) U/L Alkaline Phosphatase 97 (46-116) U/L Total Protein 7.6 (6.4-8.2) g/dL Albumin 3.7 (3.4-5.0) g/dL Globulin 3.9 g/dL Albumin/Globulin Ratio 0.9 Lipase 31.0 (16.0-77.0) U/L Serum HCG, Qual Negative (NEGATIVE) Urine Color Dk. orange (YELLOW) Urine Clarity Clear (CLEAR) Urine pH 5.5 (5.0-9.0) Ur Specific [place] >=1.030 A (1.005-1.025) Urine Protein 100 A (NEG/TRACE) mg/dL Urine Glucose (UA) Negative (NEGATIVE) mg/dL Urine Ketones 15 A (NEGATIVE) mg/dL Urine Occult Blood Large A (NEGATIVE) Urine Nitrite Negative (NEGATIVE) Urine Bilirubin Moderate A (NEGATIVE) Urine Urobilinogen 4.0 A (0.2-1.0) EU/dL Ur Leukocyte Esterase Negative (NEGATIVE) Urine RBC 2-5 A (0-2) #/HPF Urine WBC 2-5 A (NONE SEEN) #/HPF Ur Squamous Epith Cells Few A (NONE/RARE) #/LPF Urine Crystals Seen A (None Seen) #/HPF Amorphous Sediment Few Urine Bacteria Trace A (NONE SEEN) #/HPF Urine Casts None seen (NONE SEEN) #/LPF Urine Mucus Small A (NONE SEEN) Ur Culture Indicated? No Imaging Data US GB: Radiologist's impression: Patient Name: CHRISTINA NUNEZ MRN: [id number] date: 1995 Sex: F Assigned Patient Location: ER Current Patient Location: ER Accession/Order Number: [id number] Exam Date: 03/17/2023 16:00 Report Date: 03/17/2023 17:32 At the request of: STEVE VEGAS Procedure: US right upper quadrant PROCEDURE: US right upper quadrant, 03/17/2023 4:00 PM EDT CLINICAL INDICATIONS: Right upper quadrant abdominal pain, history of gallstones, nausea, vomiting, elevated bilirubin COMPARISON: Sonogram 03/03/2023 TECHNIQUE: Right upper quadrant abdominal sonogram FINDINGS: Visualized pancreas is unremarkable. No ductal dilatation is seen. Portions of head and tail segments are obscured. Right lobe of liver measures up to 15.6 cm. Indeterminate 1.0 x 1.2 x 1.1 cm hypoechoic lesion within the right lobe of the liver is noted not seen on prior sonogram. This corresponds with previous MRI assessment. Visualized portal vein is patent with antegrade phasic flow, normal velocity. Common bile duct 0.3 cm. Gallbladder is normal in caliber. Few echoes are present dependently near the gallbladder neck level. Artifact, minimal sludge and/or calculi are all considerations. Wall thickening, localized pain is not evident. Right kidney is normal in morphology. It measures 8.5 x 4.9 x 4.6 cm. No hydronephrosis or shadowing calculus is identified. Focal renal abnormality is not demonstrated. No free fluid is evident. IMPRESSION: 1. Indeterminate 1.2 cm right hepatic hypodense lesion. This corresponds with lesion seen on prior MRI assessment. 2. Few echoes are present near the gallbladder neck, undetermined origin. Artifact, minimal sludge, macrocalcification are present this pattern. Additional shadowing calculus is not evident. No wall thickening localized pain or bile duct dilatation. 3. No additional right upper quadrant abdominal pathology Electronically authenticated by: JUDY MAHAN Date: 03/17/2023 17:32 Discharge Plan Discharge Chief Complaint: Abdominal Pain Clinical Impression: Intractable nausea and vomiting, Biliary colic Patient Disposition: Admitted as Observation Time of Disposition Decision: 18:24 Prescriptions / Home Meds: No Action magnesium oxide 400 mg (241.3 mg magnesium) tablet 400 mg PO QDAY ondansetron HCl 4 mg tablet 4 mg PO Q8H 5 Days Qty: 15 0RF Additional Instructions: dr campos, medsuyonatan, OBS Referrals: CAMELIA ROGER [Primary Care Provider] - 1 week
[2023-03-17 15:52] LABS: Basophils Absolute Auto 0.1 10^3/uL (0.0-0.1); Basophils Percent Auto 0.7 % (0.2-2.0); Eosinophils Percent Auto 0.1 % (0.9-7.0); Hematocrit 47.4 % (36.0-48.0); Hemoglobin 16.2 g/dL (12.0-16.0); Immature Granulocytes Abs Auto 0.03 10^3/uL (0.00-0.03); Immature Granulocytes Pct Auto 0.4 % (0.0-0.5); Lymphocytes Absolute Auto 0.8 10^3/uL (1.2-3.8); Lymphocytes Percent Auto 9.8 % (20.5-60.0); Mean Corpuscular HGB Conc 34.2 g/dL (29.9-35.2); Mean Corpuscular Hemoglobin 34.6 pg (26.7-34.0); Mean Corpuscular Volume 101.3 fL (81.0-99.0); Mean Platelet Volume 9.7 fL (9.5-13.5); Monocytes Absolute Auto 0.4 10^3/uL (0.3-0.8); Neutrophils Absolute Auto 7.1 10^3/uL (1.4-6.5); Platelet Count 220 10^3/uL (150-450); Red Blood Count 4.68 10^6/uL (4.20-5.40); Red Cell Distribution Width 11.9 % (11.0-15.0); White Blood Count 8.5 10^3/uL (4.0-11.0)
[2023-03-17 15:56] LABS: HCG Qualitative NEGATIVE (NEGATIVE)
[2023-03-17 16:05] LABS: Alanine Aminotransferase 100 U/L (14-59); Albumin Globulin Ratio 0.9; Albumin Level 3.7 g/dL (3.4-5.0); Alkaline Phosphatase 97 U/L (46-116); Anion Gap 18.3; Aspartate Amino Transferase 214 U/L (15-37); BUN Creatinine Ratio 8.5; Bilirubin Total 3.6 mg/dL (0.2-1.0); Carbon Dioxide 23.4 mmol/L (21.0-32.0); Chloride 103 mmol/L (98-107); Estimated GFR (African America >60 (>=60); Estimated GFR (Non-African Ame >60 (>=60); Globulin 3.9 g/dL; Glucose 93 mg/dL (74-106); Potassium 3.7 mmol/L (3.5-5.1); Sodium 141 mmol/L (136-145); Total Protein 7.6 g/dL (6.4-8.2)
[2023-03-17 16:16] LABS: Bilirubin Urine MODERATE (NEGATIVE); Blood Urine LARGE (NEGATIVE); Clarity Urine CLEAR (CLEAR); Color Urine DK. ORANGE (YELLOW); Glucose Urine UA NEGATIVE (NEGATIVE); Ketones Urine 15 mg/dL (NEGATIVE); Leukocyte Esterase Urine NEGATIVE (NEGATIVE); Nitrite Urine NEGATIVE (NEGATIVE); Protein Urine 100 mg/dL (NEG/TRACE); Specific Gravity Urine >=1.030 (1.005-1.025); pH Urine 5.5 (5.0-9.0)
[2023-03-17 16:20] LABS: Urine Microscopic Indicated YES
[2023-03-17 16:32] LABS: Amorphous Sediment Urine FEW; Bacteria Urine TRACE #/HPF (NONE SEEN); Cast Seen? NONE SEEN #/LPF (NONE SEEN); Crystals Seen? Seen #/HPF (None Seen); Mucus Urine SMALL (NONE SEEN); Squamous Epithelial Cell Urine FEW #/LPF (NONE/RARE); Urine Culture Indicated NO
[2023-03-17 17:01] LABS: Bilirubin Direct 0.9 mg/dL (0.0-0.2)
[2023-03-17] MEDS: HYDROMORPHONE HCL 0.5 MG/0.5 ML SYRINGE IV (17:34)
[2023-03-17] MEDS: PROMETHAZINE HCL 25 MG/ML VIAL 12.5 MG IV (18:27)
--- NOTE | 2023-03-17 20:57 | W.PM.TELEPN ---
Progress Note: Subjective Subjective Interval history: CC: Epigastric and right upper quadrant abdominal pain associated with nausea and vomiting HPI: This is a very pleasant 27 years old female who presents with above complaints. Apparently patient has had similar presentation a few weeks ago. At that time extensive work-up was done including CT of the abdomen pelvis, HIDA scan, MRCP. No significant findings. Patient was released home at that time with recommendation to follow-up with a general surgeon and or wet roaster for further evaluation. Patient has been compliant with plain diet, but yesterday she changed it and had some Monegasque fries. After that he symptoms recurred and been intensified. Evaluation in the emergency room today revealed elevated bilirubin and slightly elevated LFTs. Ultrasound again showing normal gallbladder and normal common bile duct. Admitted for symptoms control. Exam Narrative Exam Narrative: ROS: 1.General: no fever, chills, not in distress 2.HEENT: no [place], no blurry vision, no swallow problems, no nasal congestion, no sore throat 3.Pulmonary: no cough, SOB, wheezes 4.CVS: no CP, no palpitations, no MCLEOD, no SOB, no intermittent claudication 5.GI: See above 6.: no renal colic, no hematuria, urinary frequency or urgency 7.Extremities: no edema 8.Neurological: no dizziness, vertigo, double or blurry vision, no no focal weakness, no paresthesia, no swallow or speech problems 9.Musculosceletal: no joint pains, no joint swelling, no back pain 10.Dermatological: no skin rashes, no lesions, no pruritus 11.Hematological: no bleeding, no hx/o clots 12.Endocrinological: no heat/cold intolerance, no hx/o diabetes 13.Psychiatric: no suicidal or homicidal thoughts Physical Exam: Not in distress, pleasant, lucid, cooperative, Head - atraumatic, eyes - pupils equal, round, reactive to light, extra ocular movement intact, MMM Neck - supple, thyroid not enlarged, LN not palpated Lungs - clear to auscultation, no dullness on percussion CVS - heart sounds S1, S2, no additional murmurs gallop, regular rate and rhythm Gastrointestinal?abdomen is soft, non-tender, non-distended, no organomegaly, positive bowel sounds Extremities no clubbing, cyanosis or edema Neurological?cranial nerve II?XII grossly intact, no meningeal signs, no cerebellar signs, no sensory deficit Musculoskeletal - joints, no effusions, ROM preserved Dermatological - the skin dry, warm, no rashes Psychiatric?patient is AAO X3, patient has normal affect Constitutional Vital Signs, click to edit/add: Last Vital Signs Temp 98.3 F 03/17/23 19:35 Pulse 108 H 03/17/23 19:47 Resp 15 03/17/23 19:47 BP 120/83 03/17/23 19:35 Pulse Ox 97 03/17/23 19:47 O2 Del Method Room Air 03/17/23 19:47 Progress Note: Objective Labs Labs: Short CBC 03/17/23 Range/Units 15:27 WBC 8.5 (4.0-11.0) 10^3/uL Hgb 16.2 H (12.0-16.0) g/dL Hct 47.4 (36.0-48.0) % Plt Count 220 (150-450) 10^3/uL BMP 03/17/23 15:27 Sodium 141 Potassium 3.7 Chloride 103 Carbon Dioxide 23.4 BUN 6.0 L Creatinine 0.71 Glucose 93 Calcium 9.0 Liver Function 03/17/23 Range/Units 15:27 Total Bilirubin 3.6 H (0.2-1.0) mg/dL Direct Bilirubin 0.9 H* (0.0-0.2) mg/dL AST 214 H (15-37) U/L ALT 100 H (14-59) U/L Alkaline Phosphatase 97 (46-116) U/L Albumin 3.7 (3.4-5.0) g/dL Urine 03/17/23 Range/Units 15:55 Urine Color Dk. orange (YELLOW) Urine Clarity Clear (CLEAR) Urine pH 5.5 (5.0-9.0) Ur Specific [place] >=1.030 A (1.005-1.025) Urine Protein 100 A (NEG/TRACE) mg/dL Urine Glucose (UA) Negative (NEGATIVE) mg/dL Progress Note: A&P Assessment and Plan (1) Intractable nausea and vomiting: Assessment and Plan: Started on IV fluid resuscitation Symptoms control with antiemetics (2) Abdominal pain: Assessment and Plan: Resume not entirely clear. Biliary colic has been suspected in light of elevated LFTs, but previous imaging studies failed to reveal any significant abnormalities. Patient's symptoms intensified after fried, greasy food?gastritis?. Going to continue with plain diet as tolerated. Started on Pepcid twice daily. Consider GI consult with possible EGD? (3) Dehydration: Assessment and Plan: Continue with fluid resuscitation. Monitor BUN and creatinine after IV fluid challenge Plan As the provider for the telehealth service, I attest that I introduced myself to the patient, provided my credentials, disclosed by location and determined that based on a review of the patient's chart and discussion with members of the patient's treatment team, telemedicine via real-time, 2 way, and interactive audio and video platform is an appropriate and effective means of providing the service. ?The patient and I mutually agree this visit is appropriate for telemedicine. ?[place] ?The encounter took approximately 35 minutes. ?The nurse was present during the entire time and I was able to move the stethoscope in appropriate directions. ?The patient was evaluated at the Hospital ? Portions of this note may be dictated using [employer] voice recognition software. Variances in spelling and vocabulary are possible and unintentional. Not all errors may be caught and/or corrected. Please notify the author if any discrepancies are noted and/or if the meaning of any statement is unclear.? ? Patient verbally consented for treatment via video visit with patient currently located at the [facility] and provider located in [place]. Telemedicine Attestation Telemedicine Attestation I conducted this encounter from [[place]] via secure live, [id number] video conference with the patient, located at [facility] with [intractable nausea and vomiting]. Prior to the interview, the risks and benefits of telemedicine were discussed with the patient and verbal consent was obtained.
[2023-03-17] MEDS: 0.9 % SODIUM CHLORIDE 1,000 ML 100 ML IV (21:30)
[2023-03-17] MEDS: FAMOTIDINE/PF 20 MG/2 ML VIAL IV (21:31)
[2023-03-17] MEDS: MAGNESIUM OXIDE 400 MG TABLET PO (21:31)
[2023-03-17] MEDS: MORPHINE SULFATE 2 MG/ML SYRINGE IV (22:20)
[2023-03-18] VITALS (10 sets, daily range): BP systolic 120–147; BP diastolic 80–89; PULSE 68–98; RESP 18; TEMP 36.6–36.9; O2SAT 95–99
[2023-03-18] MEDS: MORPHINE SULFATE 2 MG/ML SYRINGE IV ×2 (02:23→07:32)
[2023-03-18 05:05] LABS: Hemoglobin 12.8 g/dL (12.0-16.0); Mean Corpuscular HGB Conc 33.7 g/dL (29.9-35.2); Mean Corpuscular Hemoglobin 34.3 pg (26.7-34.0); Mean Corpuscular Volume 101.9 fL (81.0-99.0); Mean Platelet Volume 9.3 fL (9.5-13.5); Platelet Count 163 10^3/uL (150-450); Red Blood Count 3.73 10^6/uL (4.20-5.40); White Blood Count 7.2 10^3/uL (4.0-11.0)
[2023-03-18 05:49] LABS: Alanine Aminotransferase 69 U/L (14-59); Albumin Level 2.8 g/dL (3.4-5.0); Alkaline Phosphatase 71 U/L (46-116); Anion Gap 11.5; Aspartate Amino Transferase 123 U/L (15-37); BUN Creatinine Ratio 7.8; Bilirubin Total 4.6 mg/dL (0.2-1.0); Calcium 8.4 mg/dL (8.5-10.1); Carbon Dioxide 25.9 mmol/L (21.0-32.0); Chloride 102 mmol/L (98-107); Cholesterol 204 mg/dL (<=200); Estimated GFR (African America >60 (>=60); Estimated GFR (Non-African Ame >60 (>=60); Globulin 2.9 g/dL; Glucose 79 mg/dL (74-106); HDL Cholesterol 107 mg/dL (40-60); Potassium 3.4 mmol/L (3.5-5.1); Sodium 136 mmol/L (136-145); Total Protein 5.7 g/dL (6.4-8.2); Triglycerides 90 mg/dL (<=150)
[2023-03-18] MEDS: 0.9 % SODIUM CHLORIDE 1,000 ML 100 ML IV ×2 (07:26→17:51)
--- NOTE | 2023-03-18 08:57 | CM.NOTE ---
Rounds made with Dr. Best, no discharge today. Pt continues with NG tube. Awaiting surgeon to see pt for further recommendations.
--- NOTE | 2023-03-18 09:01 | PM.GSCN ---
History of Present Illness Consult details Consult date: 03/18/23 Reason for consult: abdominal pain Requesting physician: Dilip Best Narrative: Yane Wallace is a 27-year-old female presenting on the [facility] floor with a two-week history of nausea, vomiting, abdominal pain. Approximately two weeks ago, the patient presented to the Emergency Room in [place] for nausea, vomiting, abdominal pain. Patient received an appropriate workup 2 weeks ago including MRCP, ultrasound, HIDA scan. Patient scheduled an appointment with my office following her 1st Emergency Room visit for further workup of these issues. Currently, patient reports similar issues nausea, vomiting, right upper quadrant pain. She states the upper right quadrant pain as around a five out of ten and does not radiate to her back. patient admits to uma-colored stools and a low-grade fever, and a new development of urge to have a bowel movement without success. She has the feeling that a bowel movement is going to occur instead has vomited. Review of Systems ROS Status of ROS 10 or more systems reviewed and unremarkable except as noted in history and below [facility] Medical History (Updated 03/18/23 @ 09:03 by Des Bustos MD) Asthma ?J45.909 - Unspecified asthma, uncomplicated (ICD-10) Gallstones ?K80.20 - Calculus of gallbladder without cholecystitis without obstruction (ICD-10) Tachycardia ?R00.0 - Tachycardia, unspecified (ICD-10) Surgical History Hx of appendectomy ?Z90.49 - Acquired absence of other specified parts of digestive tract (ICD-10) Family History Grandfather Family history of cancer Grandfather No problems noted. Grandmother Family history of cancer Family history of myocardial infarction Social History Within the past year, how often did you have a drink containing alcohol: 2-3 times a week Within the past year, how many standard drinks containing alcohol did you have on a typical day: 1 or 2 Within the past year, how often did you have six or more drinks on one occasion: never Total score: 0 Score interpretation: Questions 2 and 3 are 0. It can be assumed that the patient's drinking is below the recommended limits. However, please confirm the accuracy of the patient's alcohol intake over the last few months. 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 Known occupational exposures/hazards: No Highest level of school completed/degree received: high school graduate Do you want help with school or training: No Are you now , , , , never or living with a partner: In a typical week, how many times do you talk on the telephone with family, friends, or neighbors: 3 or more times per week How often do you get together with friends or relatives: 3 or more times per week How often do you attend episcopalian or christian services: never Do you belong to any clubs or organizations such as episcopalian groups unions, [employer] or athletic groups, or school groups: no Total score: 1 Score interpretation: A score of less than or equal to 1 indicates the most socially isolated. Little interest or pleasure in doing things: not at all Feeling down, depressed, or hopeless: not at all Feel stressed/tense/nervous/anxious/difficulty sleeping: only a little Life stressors: divorce/separation Due to disability, difficulty making decisions: No Do you think of yourself as: straight/heterosexual Gender Identity: female Meds Home Medications and Allergies Home Medications Medication Instructions Recorded Confirmed Type magnesium oxide 400 mg (241.3 mg 400 mg PO QDAY 03/03/23 03/17/23 History magnesium) tablet ondansetron HCl 4 mg tablet 4 mg PO Q8H 5 days #15 tabs 03/04/23 03/17/23 Rx Allergies Allergy/AdvReac Type Severity Reaction Status Date / Time nickel Allergy Unknown Verified 03/03/23 08:31 Exam Constitutional Vital Signs, click to edit/add: Last Vital Signs Temp 98 F 03/18/23 05:22 Pulse 83 03/18/23 05:22 Resp 18 03/18/23 05:22 BP 120/83 03/18/23 05:22 Pulse Ox 97 03/18/23 08:00 O2 Del Method Room Air 03/18/23 05:22 Respiratory Common normals: normal respiratory effort and clear to auscultation bilaterally Cardio Common normals: regular rate, regular rhythm and no murmurs GI Common normals: Normal to inspection, nondistended, normoactive bowel sounds present and soft to palpation Palpation: tender Details: RUQ Results Labs Labs: Abnormal lab results 03/17/23 03/17/23 03/17/23 Range/Units 04:12 15:27 15:55 RBC 3.73 L (4.20-5.40) 10^6/uL Hgb 16.2 H (12.0-16.0) g/dL MCV 101.9 H 101.3 H (81.0-99.0) fL MCH 34.3 H 34.6 H (26.7-34.0) pg MPV 9.3 L (9.5-13.5) fL Neut % (Auto) 84.0 H (43.0-75.0) % Lymph % (Auto) 9.8 L (20.5-60.0) % Eos % (Auto) 0.1 L (0.9-7.0) % Neut # (Auto) 7.1 H (1.4-6.5) 10^3/uL Lymph # (Auto) 0.8 L (1.2-3.8) 10^3/uL Potassium 3.4 L (3.5-5.1) mmol/L BUN 6.0 L 6.0 L (7.0-18.0) mg/dL Calcium 8.4 L (8.5-10.1) mg/dL Total Bilirubin 4.6 H 3.6 H (0.2-1.0) mg/dL Direct Bilirubin 0.9 H* (0.0-0.2) mg/dL AST 123 H 214 H (15-37) U/L ALT 69 H 100 H (14-59) U/L Total Protein 5.7 L (6.4-8.2) g/dL Albumin 2.8 L (3.4-5.0) g/dL Cholesterol 204 H (<=200) mg/dL HDL Cholesterol 107 H (40-60) mg/dL Ur Specific [place] >=1.030 A (1.005-1.025) Urine Protein 100 A (NEG/TRACE) mg/dL Urine Ketones 15 A (NEGATIVE) mg/dL Urine Occult Blood Large A (NEGATIVE) Urine Bilirubin Moderate A (NEGATIVE) Urine Urobilinogen 4.0 A (0.2-1.0) EU/dL Urine RBC 2-5 A (0-2) #/HPF Urine WBC 2-5 A (NONE SEEN) #/HPF Ur Squamous Epith Cells Few A (NONE/RARE) #/LPF Urine Crystals Seen A (None Seen) #/HPF Urine Bacteria Trace A (NONE SEEN) #/HPF Urine Mucus Small A (NONE SEEN) Diabetes panel 03/17/23 03/17/23 Range/Units 04:12 15:27 Sodium 136 141 (136-145) mmol/L Potassium 3.4 L 3.7 (3.5-5.1) mmol/L Chloride 102 103 (98-107) mmol/L Carbon Dioxide 25.9 23.4 (21.0-32.0) mmol/L BUN 6.0 L 6.0 L (7.0-18.0) mg/dL Creatinine 0.77 0.71 (0.55-1.02) mg/dL Glucose 79 93 (74-106) mg/dL Calcium 8.4 L 9.0 (8.5-10.1) mg/dL AST 123 H 214 H (15-37) U/L ALT 69 H 100 H (14-59) U/L Alkaline Phosphatase 71 97 (46-116) U/L Total Protein 5.7 L 7.6 (6.4-8.2) g/dL Albumin 2.8 L 3.7 (3.4-5.0) g/dL Triglycerides 90 (<=150) mg/dL HDL Cholesterol 107 H (40-60) mg/dL Calcium panel 03/17/23 03/17/23 Range/Units 04:12 15:27 Calcium 8.4 L 9.0 (8.5-10.1) mg/dL Albumin 2.8 L 3.7 (3.4-5.0) g/dL Pituitary panel 03/17/23 03/17/23 Range/Units 04:12 15:27 Sodium 136 141 (136-145) mmol/L Potassium 3.4 L 3.7 (3.5-5.1) mmol/L Chloride 102 103 (98-107) mmol/L Carbon Dioxide 25.9 23.4 (21.0-32.0) mmol/L BUN 6.0 L 6.0 L (7.0-18.0) mg/dL Creatinine 0.77 0.71 (0.55-1.02) mg/dL Glucose 79 93 (74-106) mg/dL Calcium 8.4 L 9.0 (8.5-10.1) mg/dL Adrenal panel 03/17/23 03/17/23 Range/Units 04:12 15:27 Sodium 136 141 (136-145) mmol/L Potassium 3.4 L 3.7 (3.5-5.1) mmol/L Chloride 102 103 (98-107) mmol/L Carbon Dioxide 25.9 23.4 (21.0-32.0) mmol/L BUN 6.0 L 6.0 L (7.0-18.0) mg/dL Creatinine 0.77 0.71 (0.55-1.02) mg/dL Glucose 79 93 (74-106) mg/dL Calcium 8.4 L 9.0 (8.5-10.1) mg/dL Total Bilirubin 4.6 H 3.6 H (0.2-1.0) mg/dL AST 123 H 214 H (15-37) U/L ALT 69 H 100 H (14-59) U/L Alkaline Phosphatase 71 97 (46-116) U/L Total Protein 5.7 L 7.6 (6.4-8.2) g/dL Albumin 2.8 L 3.7 (3.4-5.0) g/dL All other labs normal. Assessment and Plan Assessment and Plan (1) Intractable nausea and vomiting: (2) Abdominal pain: (3) Dehydration: (4) Elevated liver enzymes: Plan All prior studies reviewed including ultrasound the gallbladder which was inconclusive for gallstones or acute cholecystitis or choledocholithiasis. Patient had a [facility] HIDA scan on which showed a normal ejection fraction of ninety percent which goes against acute cholecystitis or chronic cholecystitis. MRCP done on 03/03/2023 showed ill-defined hyperintense lesion in the anterior periphery of the right lobe of the liver measuring 15 mm not well seen on CT from 07/18/2018 and showed no biliary ductal dilatation or evidence of choledocholithiasis. Recommended liver protocol MRI with and without Eovist contrast for further evaluation. Recommendations the patient have a hepatitis profile and I do not think she is acutely surgical at this time. Would recommend gastrointestinal consultation either inpatient or outpatient and scheduling of MRI with and without eovist contrast for further evaluation as an outpatient at a later date so that nothing is missed.
--- NOTE | 2023-03-18 09:08 | CM.NOTE ---
Rounds made with Dr. Best, consult ordered for general surgeon. Will await recommendation from Dr. Bustos
[2023-03-18 09:18] LABS: Band Neutrophils Absolute 0.2 10^3/uL (0.0-0.3); Lymphocytes Absolute Manual 1.94 10^3/uL (1.20-3.80); Monocytes Absolute Manual 0.36 10^3/uL (0.30-0.80); Segmented Neut Absolute Manual 4.46 10^3/uL (1.4-6.5)
[2023-03-18 09:19] LABS: Anisocytosis 1+; Eosinophils Absolute Manual 0.21 10^3/uL (0.00-0.70); Macrocytosis 1+
[2023-03-18] MEDS: FAMOTIDINE/PF 20 MG/2 ML VIAL IV (09:43)
[2023-03-18] MEDS: MAGNESIUM OXIDE 400 MG TABLET PO (09:44)
[2023-03-18 13:39] LABS: Ammonia 39 umol/L (11-32)
[2023-03-18 13:47] LABS: INR 1.12; Prothrombin Time 11.8 sec (9.0-11.6)
--- NOTE | 2023-03-18 14:31 | P.HP_ITS ---
Pt seen and examined at 0725 on 03/18/2023 Charting and exam reviewed - agree with findings add dx Sinus tachycardia secondary to the dehydration - imprpoving Polycythemai secondary to the dehydration - With acute elevation in LFT -check HEP ABC, PT/PTT ammonia Hyperammonemia - related to the liver function elevation and dehydration H&P: HPI History of Present Illness Chief complaint: Intractable Nausea and Vomiting/RUQ pain Narrative: Date/time of exam: 03/18/23 1030 This is a 27-year-old female patient with a past medical history that is relatively benign, who presented to the ED today complaining of recurrent severe right upper quadrant pain with intractable nausea and vomiting. The patient has already been admitted for this complaint recently with work-up mostly benign, however elevated liver enzymes were noted. HIDA scan and MRCP both were unremarkable. Patient was initially supposed to follow-up outpatient with surgery but her appointment has not yet occurred. The patient admits to eating fried foods on Tuesday night which is the likely inciting event of her current symptoms. Work-up in the ED was again mostly unremarkable except for persistent elevated bilirubin and liver enzymes. Alk phos is WNL. US of the abdomen does not indicate and CBD dilation or other acute abnormality. She was admitted to observation by the hospitalist service under Dr. Best for further monitoring and consult with surgical services. At the time of my exam the patient is resting comfortably in bed. She reports that her abdominal discomfort is persisting but much improved since the ED. She is not experiencing significant vomiting but does have some mild emesis still. Dr. Bustos has already examined the patient and will review her previous imaging. The patient is currently n.p.o. pending his review of those exams and decision if he intends to take the patient to surgery. If not we will advance her diet and monitor her response. ADDENDUM 1230: Dr Bustos spoke with Dr Best and indicates that this is a non- surgical issues. Diet advancement was advised along with outpatient follow up with GI after discharge - likely tomorrow. Review of Systems ROS Status of ROS 10 or more systems reviewed and unremarkable except as noted in history and below [facility] Medical History (Updated 03/18/23 @ 09:03 by Des Bustos MD) Asthma ?J45.909 - Unspecified asthma, uncomplicated (ICD-10) Gallstones ?K80.20 - Calculus of gallbladder without cholecystitis without obstruction (ICD-10) Tachycardia ?R00.0 - Tachycardia, unspecified (ICD-10) Surgical History Hx of appendectomy ?Z90.49 - Acquired absence of other specified parts of digestive tract (ICD- 10) Family History Grandfather Family history of cancer Grandfather No problems noted. Grandmother Family history of cancer Family history of myocardial infarction Social History Within the past year, how often did you have a drink containing alcohol: 2-3 times a week Within the past year, how many standard drinks containing alcohol did you have on a typical day: 1 or 2 Within the past year, how often did you have six or more drinks on one occasion: never Total score: 0 Score interpretation: Questions 2 and 3 are 0. It can be assumed that the patient's drinking is below the recommended limits. However, please confirm the accuracy of the patient's alcohol intake over the last few months. 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 Known occupational exposures/hazards: No Highest level of school completed/degree received: high school graduate Do you want help with school or training: No Are you now , , , , never or living with a partner: In a typical week, how many times do you talk on the telephone with family, friends, or neighbors: 3 or more times per week How often do you get together with friends or relatives: 3 or more times per week How often do you attend anabaptist or gnosticist services: never Do you belong to any clubs or organizations such as anabaptist groups unions, fraternal or athletic groups, or school groups: no Total score: 1 Score interpretation: A score of less than or equal to 1 indicates the most socially isolated. Little interest or pleasure in doing things: not at all Feeling down, depressed, or hopeless: not at all Feel stressed/tense/nervous/anxious/difficulty sleeping: only a little Life stressors: divorce/separation Due to disability, difficulty making decisions: No Do you think of yourself as: straight/heterosexual Gender Identity: female Meds Home Medications and Allergies Home Medications Medication Instructions Recorded Confirmed Type magnesium oxide 400 mg (241.3 mg 400 mg PO QDAY 03/03/23 03/17/23 History magnesium) tablet ondansetron HCl 4 mg tablet 4 mg PO Q8H 5 days #15 tabs 03/04/23 03/17/23 Rx Allergies Allergy/AdvReac Type Severity Reaction Status Date / Time nickel Allergy Unknown Verified 03/03/23 08:31 Exam Constitutional Vital Signs, click to edit/add: Last Vital Signs Temp 98 F 03/18/23 05:22 Pulse 83 03/18/23 05:22 Resp 18 03/18/23 05:22 BP 120/83 03/18/23 05:22 Pulse Ox 97 03/18/23 11:58 O2 Del Method Room Air 03/18/23 05:22 Common normals: no apparent distress, oriented x3, alert and well nourished General appearance: cooperative Orientation/consciousness: Yes awake HENMT Common normals: normocephalic, head/scalp atraumatic, hearing grossly normal bilaterally, external ears normal, external nose normal and moist oral mucous membranes Head and scalp: normocephalic and atraumatic Face and sinus: normal facial exam Nose: external nose normal External ear: external ears normal Eye Common normals: PERRL, EOMs intact bilaterally, conjunctivae normal and no scleral icterus General eye: normal appearance of both eyes Alignment: alignment normal Eyelid: eyelids normal Conjunctiva: conjunctiva(e) normal Pupil: PERRL Neck & C-Spine Common normals: full ROM, supple and no JVD Chest Common normals: inspection of chest normal Chest: symmetrical chest wall rise Respiratory Common normals: normal respiratory effort, no retractions, no use of accessory muscles and clear to auscultation bilaterally Effort & inspection: able to speak in complete sentences Auscultation: clear to auscultation bilaterally Cardio Common normals: no JVD, regular rate, regular rhythm, S1 normal heart sound, S2 normal heart sound, no gallops, no clicks, no murmurs, no rub and peripheral pulses 2+ throughout Rate: regular rate Rhythm: regular rhythm Heart sounds: S1 normal and S2 normal Peripheral pulses: pulses 2+ throughout GI Common normals: Normal to inspection, nondistended, normoactive bowel sounds present, soft to palpation, no hepatosplenomegaly, no masses and no bruits Palpation: soft, tender (Exquisite RUQ. Mild RLQ) and no hepatosplenomegaly; no guarding, not rigid and no rebound tenderness present Bladder/kidney exam: bladder normal to palpation Extremity Common normals: normal capillary refill and no pedal edema General: normal exam except as noted; no clubbing and no cyanosis Neuro Maribeth Coma Scale: GCS not evaluated Common normals: oriented x3, CN's II-XII intact bilaterally, moves all extremities, no focal motor deficits and no sensory deficits noted Sensorium/orientation: awake and alert Speech: speech normal Motor exam: strength 5/5 throughout Psych Common normals: mental status grossly normal, thought process normal, affect normal and activity/motor behavior normal Thought process: normal thought process Results Labs Labs: Short CBC 03/17/23 03/17/23 Range/Units 04:12 15:27 WBC 7.2 8.5 (4.0-11.0) 10^3/uL Hgb 12.8 16.2 H (12.0-16.0) g/dL Hct 38.0 47.4 (36.0-48.0) % Plt Count 163 220 (150-450) 10^3/uL BMP 03/17/23 03/17/23 04:12 15:27 Sodium 136 141 Potassium 3.4 L 3.7 Chloride 102 103 Carbon Dioxide 25.9 23.4 BUN 6.0 L 6.0 L Creatinine 0.77 0.71 Glucose 79 93 Calcium 8.4 L 9.0 Liver Function 03/17/23 03/17/23 Range/Units 04:12 15:27 Total Bilirubin 4.6 H 3.6 H (0.2-1.0) mg/dL Direct Bilirubin 0.9 H* (0.0-0.2) mg/dL AST 123 H 214 H (15-37) U/L ALT 69 H 100 H (14-59) U/L Alkaline Phosphatase 71 97 (46-116) U/L Albumin 2.8 L 3.7 (3.4-5.0) g/dL Urine 03/17/23 Range/Units 15:55 Urine Color Dk. orange (YELLOW) Urine Clarity Clear (CLEAR) Urine pH 5.5 (5.0-9.0) Ur Specific [place] >=1.030 A (1.005-1.025) Urine Protein 100 A (NEG/TRACE) mg/dL Urine Glucose (UA) Negative (NEGATIVE) mg/dL Pulse Oximetry Attestation: I have reviewed the pertinent pulse oximetry results. Assessment and Plan Assessment and Plan (1) Intractable nausea and vomiting: Assessment and Plan: ACUTE * W/ associated RUQ abdominal pain * Unclear etiology - likely exacerbated by pt going off her bland diet after her last discharge * No evidence of CBD or other biliary obstruction * check Hep panel now * diet per surgery recommendations * Zofran for N/V * CBC, CMP in AM (2) Dehydration: Assessment and Plan: ACUTE * 2/2 Intractable N/V * NS IVF at 100/hr for now (3) Elevated liver enzymes: Assessment and Plan: SUBACUTE * Unclear etiology * Likely follow up with GI as outpatient * No acute findings on imaging
[2023-03-18] MEDS: ALPRAZOLAM 0.25 MG TABLET PO (18:42)
[2023-03-19] MEDS: ALPRAZOLAM 0.25 MG TABLET PO (04:24)
[2023-03-19 05:34] VITALS: BP 125/86; PULSE 69; RESP 22; TEMP 36.8; O2SAT 96
[2023-03-19 07:09] LABS: HBsAg Screen Negative (Negative); HCV Ab Non Reactive (Non Reactive); Hep A Ab, IgM Negative (Negative); Hep B Core Ab, IgM Negative (Negative)
--- NOTE | 2023-03-19 07:24 | P.GSPN_ITS ---
Progress Note: A&P Assessment and Plan (1) Intractable nausea and vomiting: (2) Dehydration: (3) Elevated liver enzymes: Plan plan advance diet as tolerated and recommended that she have her liver profile repeated for comparison sake; nothing surgical at this time. Recommend she see gastrointestinal and have gastrointestinal send me a copy of their report and if they think she needs her gallbladder removed she may contact us to arrange that in the future. She voiced understanding of the above. Subjective Subjective Patient reports: no new complaints, feels better and pain is less Interval history: had anxiety this morning according to nursing and was medicated with Xanax.; Denies any nausea vomiting or abdominal pain currently. Refused to have blood work this morning. Spoke to her about the importance of having labs reviewed and rechecked. She is aware that I recommended seeing a gastrointestinal specialist and her boyfriend has seen Dr. harvinder RUIZ in [place]. She will call and make an appointment. Exam Constitutional Vital Signs, click to edit/add: Last Vital Signs Temp 98.3 F 03/19/23 05:34 Pulse 69 03/19/23 05:34 Resp 22 03/19/23 05:34 BP 125/86 03/19/23 05:34 Pulse Ox 96 03/19/23 05:34 O2 Del Method Room Air 03/19/23 05:34 GI Common normals: Normal to inspection, nondistended, normoactive bowel sounds present, soft to palpation and non-tender
[2023-03-19] MEDS: MAGNESIUM OXIDE 400 MG TABLET PO (08:32)
[2023-03-19] MEDS: ACETAMINOPHEN 325 MG TABLET 650 MG PO (08:32)
[2023-03-19 08:57] LABS: Basophils Percent Auto 0.6 % (0.2-2.0); Eosinophils Absolute Auto 0.2 10^3/uL (0.0-0.7); Eosinophils Percent Auto 2.6 % (0.9-7.0); Hematocrit 42.4 % (36.0-48.0); Hemoglobin 14.1 g/dL (12.0-16.0); Immature Granulocytes Abs Auto 0.01 10^3/uL (0.00-0.03); Immature Granulocytes Pct Auto 0.1 % (0.0-0.5); Lymphocytes Absolute Auto 1.8 10^3/uL (1.2-3.8); Lymphocytes Percent Auto 26.7 % (20.5-60.0); Mean Corpuscular HGB Conc 33.3 g/dL (29.9-35.2); Mean Corpuscular Hemoglobin 34.2 pg (26.7-34.0); Mean Corpuscular Volume 102.9 fL (81.0-99.0); Mean Platelet Volume 9.7 fL (9.5-13.5); Monocytes Absolute Auto 0.5 10^3/uL (0.3-0.8); Monocytes Percent Auto 6.9 % (1.7-12.0); Neutrophils Absolute Auto 4.3 10^3/uL (1.4-6.5); Neutrophils Percent Auto 63.1 % (43.0-75.0); Platelet Count 142 10^3/uL (150-450); Red Blood Count 4.12 10^6/uL (4.20-5.40); Red Cell Distribution Width 11.9 % (11.0-15.0); White Blood Count 6.8 10^3/uL (4.0-11.0)
[2023-03-19 09:00] LABS: Magnesium 1.3 mg/dL (1.8-2.4)
[2023-03-19 09:02] LABS: Ammonia 33 umol/L (11-32)
[2023-03-19 09:06] LABS: Alanine Aminotransferase 55 U/L (14-59); Albumin Level 3.2 g/dL (3.4-5.0); Alkaline Phosphatase 77 U/L (46-116); Anion Gap 10.4; Aspartate Amino Transferase 68 U/L (15-37); BUN Creatinine Ratio 4.4; Bilirubin Total 4.4 mg/dL (0.2-1.0); Calcium 8.4 mg/dL (8.5-10.1); Carbon Dioxide 28.1 mmol/L (21.0-32.0); Chloride 102 mmol/L (98-107); Estimated GFR (African America >60 (>=60); Estimated GFR (Non-African Ame >60 (>=60); Globulin 3.2 g/dL; Glucose 85 mg/dL (74-106); INR 1.08; Partial Thromboplastin Time 29.3 sec (22.3-36.2); Potassium 3.5 mmol/L (3.5-5.1); Prothrombin Time 11.4 sec (9.0-11.6); Sodium 137 mmol/L (136-145); Total Protein 6.4 g/dL (6.4-8.2)
--- NOTE | 2023-03-19 11:28 | P.DS_ITS ---
DS: Providers Provider Date of admission: 03/17/23 19:19 Primary care physician: CAMELIA KULKARNI Consults: 03/18/23 08:05 Consult to General Surgeon Routine Consulting Provider: Des Bustos Reason for consultation: RUQ pain DS: Diagnosis Discharge Diagnosis (1) Intractable nausea and vomiting: (2) Dehydration: (3) Elevated liver enzymes: Plan Tachycardia, polycythemia secondary to the dehydration. Hyperammonemia secondary to the dehydration and elevated liver function test Mild coagulopathy secondary to the elevated liver function test DS: Summary Hospital Course Hospital Course: Patient mated with nausea vomiting. No diarrhea, no unusual foods did have an increase in her recent take. Amylase and lipase were normal but liver function tests were significantly elevated still. This is similar to her previous episode. Extensive work-up done at previous episode. Repeat ultrasound here shows no change. Consultation with general surgery. Follow-up for stent any more of the liver dysfunction issue as opposed to gallbladder issue. Hepatitis ABC were negative she does have hyperammonemia but mild. Encouraged her to follow-up with gastroenterology. She has a physician in mind already. She will be discharged home in improving condition. Medications see list. Follow-up with PCP and gastroenterology SHIRA Time Spent with Patient Time attestation: Total time spent providing and/or coordinating discharge services: Exam Constitutional Vital Signs, click to edit/add: Last Vital Signs Temp 98.3 F 03/19/23 05:34 Pulse 69 03/19/23 05:34 Resp 22 03/19/23 05:34 BP 125/86 03/19/23 05:34 Pulse Ox 96 03/19/23 05:34 O2 Del Method Room Air 03/19/23 05:34 Common normals: no apparent distress, oriented x3, alert and well nourished General appearance: cooperative Orientation/consciousness: Yes awake HENRI Common normals: normocephalic, head/scalp atraumatic, hearing grossly normal bilaterally, external ears normal, external nose normal and moist oral mucous membranes Head and scalp: normocephalic and atraumatic Face and sinus: normal facial exam Nose: external nose normal External ear: external ears normal Eye Common normals: PERRL, EOMs intact bilaterally, conjunctivae normal and no scleral icterus General eye: normal appearance of both eyes Alignment: alignment normal Eyelid: eyelids normal Conjunctiva: conjunctiva(e) normal Pupil: PERRL Neck & C-Spine Common normals: full ROM, supple and no JVD Chest Common normals: inspection of chest normal Chest: symmetrical chest wall rise Respiratory Common normals: normal respiratory effort, no retractions, no use of accessory muscles and clear to auscultation bilaterally Effort & inspection: able to speak in complete sentences Auscultation: clear to auscultation bilaterally Cardio Common normals: no JVD, regular rate, regular rhythm, S1 normal heart sound, S2 normal heart sound, no gallops, no clicks, no murmurs, no rub and peripheral pulses 2+ throughout Rate: regular rate Rhythm: regular rhythm Heart sounds: S1 normal and S2 normal Peripheral pulses: pulses 2+ throughout GI Common normals: Normal to inspection, nondistended, normoactive bowel sounds present, soft to palpation, no hepatosplenomegaly, no masses and no bruits Palpation: soft, tender (Exquisite RUQ. Mild RLQ) and no hepatosplenomegaly; no guarding, not rigid and no rebound tenderness present Bladder/kidney exam: bladder normal to palpation Extremity Common normals: normal capillary refill and no pedal edema General: normal exam except as noted; no clubbing and no cyanosis Neuro Maribeth Coma Scale: GCS not evaluated Common normals: oriented x3, CN's II-XII intact bilaterally, moves all extremities, no focal motor deficits and no sensory deficits noted Sensorium/orientation: awake and alert Speech: speech normal Motor exam: strength 5/5 throughout Psych Common normals: mental status grossly normal, thought process normal, affect normal and activity/motor behavior normal Thought process: normal thought process DS: Data Data Completed and Pending Labs on day of discharge: Labs from last 24 hours 03/19/23 03/18/23 03/18/23 08:45 13:22 10:06 WBC 6.8 RBC 4.12 L Hgb 14.1 Hct 42.4 MCV 102.9 H MCH 34.2 H MCHC 33.3 RDW 11.9 Plt Count 142 L MPV 9.7 Neut % (Auto) 63.1 Lymph % (Auto) 26.7 Chaves % (Auto) 6.9 Eos % (Auto) 2.6 Baso % (Auto) 0.6 Neut # (Auto) 4.3 Lymph # (Auto) 1.8 Chaves # (Auto) 0.5 Eos # (Auto) 0.2 Baso # (Auto) 0.0 Abs Immat Gran (auto) 0.01 Imm/Tot Granulo (auto) 0.1 PT 11.4 11.8 H INR 1.08 1.12 APTT 29.3 Sodium 137 Potassium 3.5 Chloride 102 Carbon Dioxide 28.1 Anion Gap 10.4 BUN 3.0 L Creatinine 0.68 Est GFR ( Amer) >60 Est GFR (Non-Af Amer) >60 BUN/Creatinine Ratio 4.4 Glucose 85 Calcium 8.4 L Magnesium 1.3 L Total Bilirubin 4.4 H AST 68 H ALT 55 Alkaline Phosphatase 77 Ammonia 33 H 39 H Total Protein 6.4 Albumin 3.2 L Globulin 3.2 Albumin/Globulin Ratio 1.0 Hepatitis A IgM Ab Negative Hep Bs Antigen Negative Hep B Core IgM Ab Negative Hepatitis C Antibody Non reactive Hepatitis C Interp Comment Discharge Plan Discharge Disposition: Home Health Service Discharge Medications: New pantoprazole [Protonix] 40 mg tablet,delayed release (DR/EC) 40 mg PO DAILY 28 Days Qty: 28 0RF Continued magnesium oxide 400 mg (241.3 mg magnesium) tablet 400 mg PO QDAY ondansetron HCl 4 mg tablet 4 mg PO Q8H 5 Days Qty: 15 0RF Activity: increase activity as tolerated Diet: advance to your usual diet Patient Instructions: Pantoprazole (By mouth), Biliary Colic (GEN), Abdominal Pain (DC) Forms: Portal Instructions Follow Up Appointments: please schedule follow up appt with dr kulkarni for within 7 to 10 days. please follow up with dr bustos and GI specialist as needed Discharge Date/Time: 03/19/23 12:09
--- NOTE | 2023-03-21 13:55 | CM.DCFOLLOWU ---
Person spoke with: Yane How are you feeling? Better How is your pain? No pain Did you understand your discharge instructions? Yes Do you have any questions about your discharge instructions? No Were you given any prescriptions at discharge? Yes Were you able to get your prescriptions filled? No, I have to pick it up today Do you understand how to take your medications as ordered? Yes Do you have any questions about your follow up appointment and do you plan to keep your follow up appointment? I am going to call today and schedule appts. Is there anything else that you would like to discuss? No Questions/Comments/Concerns/Other:
== END 2023-03-19 12:09 | disposition home health service (06) ==
LOC: ER 18:24 → MS 19:23
PROVIDERS: Internal Medicine; Surgery; Admitting Provider Family Medicine; Emergency Provider Emergency Medicine; PCP Family Medicine; Visit Provider Nurse Practitioner
DX: E86.0 Dehydration (principal); R11.2 Nausea with vomiting, unspecified; R10.9 Unspecified abdominal pain; R79.89 Other specified abnormal findings of blood chemistry; R79.1 Abnormal coagulation profile; R00.0 Tachycardia, unspecified; D75.1 Secondary polycythemia; E72.20 Disorder of urea cycle metabolism, unspecified; F17.290 Nicotine dependence, other tobacco product, uncomplicated; J45.909 Unspecified asthma, uncomplicated; Z79.899 Other long term (current) drug therapy; Z90.49 Acquired absence of other specified parts of digestive tract
CPT/HCPCS: 36415; 76705; 80053; 80061; 80074; 81001; 82140; 82248; 83690; 83735; 84703; 85025; 85027; 85610; 85730; 96361; 96374; 96375; 96376; 99285; G0378; J1170; Q3014

== ENCOUNTER 2023-11-09 22:04 | Emergency (ER) | payer SELFPAY ==
[2023-11-09 22:09] VITALS: BP 126/90; PULSE 91; TEMP 36.6; O2SAT 96; BMI 27.8
--- OUTSIDE RECORDS SUMMARY | 2023-11-09 22:16 | XMS_ITS ---
Patient Summarization (C-CDA 2.1 CCD) Created on: November 09, 2023 CHRISTINA WALLACE : 1995 Sex: Female Author Organization Sample organization Care Team Providers Care Surgical Clinical Reviewer Name Role Phone Tracy Locke Unavailable KANA, DR DENISE Primary Care Unavailable ASECNCION ., DR WILSON Admitting Unavailable ASCENCION ., DR WILSON Attending Unavailable ALLYSON ., JESSE Consulting Unavailable ASCENCION ., DR WILSON Admitting Unavailable ASCENCION ., DR WILSON Consulting Unavailable ASCENCION Fung, DR WILSON Attending Unavailable KANA, DR DENISE Primary Care Unavailable Isabella Spencer Unavailable MD Camelia Roger Primary Care Provider DO Rabia Murrieta Emergency Provider [phone] Camelia Roger Primary Care Unavailable Rabia Murrieta Admitting Unavailable Rabia Murrieta Attending Unavailable Reagan Pompa Unavailable MD Camelia Roger Primary Care Provider [phone] DO Rabia Murrieta Emergency Provider MD Kenrick Gill Attending Provider СЕРГЕЙ Pompa Attending Provider Kenrick Gill Unavailable NO FAMILY, PHYSICIAN Primary Care Provider Unava ilable DO Heriberto Shin Admit Provider DO Heriberto Shin Attending Provider MD Abel Downey Other Provider NO PCP, NO PCP Primary Care Unavailable NGUYEN, RABIA N Attending Unavailable NGUYEN, RABIA N Attending Unavailable NGUYEN, RABIA N Referring Unavailable NO PCP, NO PCP Primary Care Unavailable NO PCP, NO PCP Primary Care Unavailable SANAZ ALCANTARA Attending Unavailable NO FAMILY, PHYSICIAN Primary Care Provider Unava ilable СЕРГЕЙ Ley Emergency Provider DO Heriberto Shin Admit Provider MD Abel Downey Other Provider MD Trung Dalal Other Provider [phone] MD Lg Kurtz Other Provider MD Fiona Rowley Other Provider MD Mame Conde Other Provider СЕРГЕЙ Pompa Other Provider [phone] MD Kenrick Gill Other Provider MD Sixto Reina Other Provider MD Mann Rowley Attending Provider MD Kenrick Gill Attending Provider Reagan Pompa Attending Unavailable Camelia Roger Primary Care Unavailable Reagan Pompa Admitting Unavailable Heriberto Shin Admitting Unavailable Abel Downey Consulting Unavailabl e Mann Rowley Attending Unavailable NO FAMILY, PHYSICIAN Primary Care Unavailable Trung Dalal Consulting Unavailable Lg Kurtz Consulting Unavailable Fiona Rowley Consulting Unavailable Mame Conde Consulting Unavailable Reagan Pompa Consulting Unavailable Asaad, Imad Consulting Unavailable Sixto Reina Consulting Unavailable Heriberto Shin Admitting Unavailable Heriberto Shin Attending Unavailable Abel Downey Consulting Unavailabl e NO FAMILY, PHYSICIAN Primary Care Unavailable Asaad, Imad Admitting Unavailable Asaad, Imad Attending Unavailable NO FAMILY, PHYSICIAN Primary Care Unavailable Camelia Roger M Primary Care Unavailable Asaad, Imad Admitting Unavailable Asaad, Imad Attending Unavailable Adair CUADRA Attending Unavailable Allergies Allergy Classification Reported Allergen(s) Allergy Type Date of Onset Reaction(s) Facility (11 sources) nickel Drug Allergy 03-25-2023 [facility] (1 source) Leucine Drug Allergy [facility] Repository (2 sources) nickel Drug Allergy 03-25-2023 [facility] Repository Encounters Encounter Date Encounter Type Care Provider Facility Start: 10-28-2023 End: 10-28-2023 ambulatory Adair CUADRA Facility:[facility] Start: 08-31-2023 Non-patient / Non-visit PHYSICIAN NO [facility] Work Phone: Start: 08-31-2023 End: 08-31-2023 Admission to same day surgery center PHYSICIAN NO [facility] Work Phone: Start: 08-31-2023 End: 08-31-2023 ambulatory PHYSICIAN NO [facility] Work Phone: Start: 07-28-2023 Non-patient / Non-visit PHYSICIAN NO [facility] Work Phone: Start: 07-27-2023 End: 07-29-2023 ambulatory Heriberto Shin Facility:[facility] Start: 07-27-2023 Non-patient / Non-visit PHYSICIAN NO [facility] Work Phone: Start: 07-27-2023 End: 07-29-2023 Evaluation and management of inpatient PHYSICIAN NO [facility] Work Phone: Start: 06-19-2023 End: 2023 Emergency department patient visit NO PCP NO PCP [facility] Start: 06-15-2023 End: 06-15-2023 ambulatory Imad Asaad Other [address] Other Start: 06-15-2023 Telephone encounter Imad Asaad [facility] Start: 06-08-2023 End: 06-08-2023 ambulatory Imad Asaad Other [address] Other Start: 06-08-2023 Office outpatient visit 25 minutes Imad Asaad [facility] Start: 06-08-2023 End: 06-08-2023 Patient encounter procedure PHYSICIAN NO FAMILY [facility]- Start: 05-29-2023 End: 05-30-2023 Evaluation and management of inpatient Heriberto Shin Facility:[facility] Start: 05-29-2023 End: 05-30-2023 Evaluation and management of inpatient MD Camelia Roger Work Phone: [facility] [place] [facility] Work Phone: Start: 05-28-2023 End: 05-30-2023 Emergency department patient visit RABIA NGUYEN [facility] Start: 05-25-2023 End: 05-25-2023 ambulatory Reagan Pompa Facility:[facility] Start: 05-25-2023 End: 05-25-2023 Patient encounter procedure MD Camelia Roger Work Phone: [facility] [place] Work Phone: Start: 05-25-2023 End: 05-25-2023 ambulatory MD Camelia Roger Work Phone: [facility] Work Phone: Start: 05-25-2023 Telephone encounter Imagnes Gill [facility] Start: 05-17-2023 End: 05-17-2023 ambulatory Camelia Roger Facility:[facility] Start: 05-17-2023 End: 05-17-2023 Admission to same day surgery center MD Camelia Roger Work Phone: [facility] Work Phone: Start: 05-17-2023 End: 05-17-2023 ambulatory MD Camelia Roger Work Phone: [facility] Work Phone: Start: 04-08-2023 End: 04-08-2023 ambulatory Reagan Pompa Other [address] Other Start: 04-08-2023 Office outpatient ne w 30 minutes Reagan Pompa [facility] Start: 03-25-2023 End: 03-26-2023 Emergency department patient visit Camelia Roger Facility:[facility] Start: 03-25-2023 End: 03-25-2023 Emergency department patient visit MD Camelia Roger Work Phone: [facility]Emer[facility] Work Phone: Start: 02-24-2023 End: 02-24-2023 ambulatory Isabella Spencer Other [address] Other Start: 02-24-2023 Office outpatient visit 15 minutes Isabella Spencer [facility] Start: 12-02-2022 End: 12-02-2022 ambulatory Isabella Spencer Other [address] Other Start: 12-02-2022 Office outpatient visit 15 minutes Isabella Spencer [facility] Start: 08-21-2022 End: 08-21-[address] STEVE VEGAS . Facility:[facility] Start: 05-05-2022 End: 05-05-2022 ambulatory Tracy Locke Other [address] Other Start: 05-05-2022 Office outpatient visit 15 minutes Tracy Cornelia [facility] Start: 02-22-2022 End: 02-22-[address] CAMELIA ROGER Facility:[facility] Goals Date Patient Goal Desired Activity /State Immunizations Immunization Date Immunization Notes Care Provider Kiana gordon 04-23-2018 tetanus toxoid, reduced diphtheria toxoid, and acellular pertussis vaccine, adsorbed Tracy Cornelia Other [address] Other 04-23-2018 tetanus and diphther ia toxoids, adsorbed, preservative free, for adult use (5 Lf of tetanus toxoid and 2 Lf of diphtheria toxoid) PHYSICIAN SUSAN FAMILY [facility] Medications Current Medications Medication Drug Class(es) Dates Sig (Normalized) Sig (Original) 8 hr acetaminophen 650 mg extended release oral tablet (1 source) Start: 07-29-19 24 take 1 tablet by mouth every twelve hours Acetaminophen (8 Hour Pain Reliever) 650 mg tablet extended release Active 650 MG PO Every 12 hours July 29, 2023 1:00am Albuterol (3 sources) beta2-Adrenergic Agonist Albuterol Active budesonide 3 mg delayed release oral capsule (3 sources) Corticosteroid Start: 05-25-19 24 Budesonide 3 MG 3 tabs daily for 60 days, 2 tabs daily for 14 days, 1 tab daily for 14 days Orally Once a day for 90 days May, Active citric acid 68.6 MG/ML / magnesium oxide 20 MG/ML / picosulfate sodium 0.0571 MG/ML Oral Solution [Clenpiq] (1 source) Start: 04-08-20 23 take 1 dose by mouth twice daily in the evening Clenpiq 10-3.5-12 MG-GM -GM/175ML 175 mL the first dose at 3:00 pm and 175 ml the second dose at 9:00 pm Orally twice a day for 1 days PLEASE CHECK ALLERGIES Mar, Active dicyclomine hydrochloride 20 mg oral tablet (1 source) Anticholinergic Start: 08-11-19 24 take 20 mg by mouth twice daily Dicyclomine Active 20 MG PO Twice daily 180 90 August 11, 2023 12:00am Magnesium (5 sources) take 1 capsule by mouth once daily Magnesium 300 MG 1 capsule with a meal Orally Once a day Active methylPREDNISolone 4 mg oral tablet (1 source) Corticosteroid Start: 05-22-20 22 methylPREDNISolone 4 MG as directed Orally Once a day for 6 days Apr, Active ondansetron 4 mg oral tablet (11 sources) Serotonin-3 Receptor Antagonist Start: 06-08-19 24 take 1 tablet by mouth every twenty-four hours Ondansetron HCl 4 MG 1 tablet Orally Once a day for 30 days May, Active Start: 05-29-2023 take 4 mg by mouth e very eight hours Ondansetron Active 4 MG PO Q8H May 29, 2023 1:00am Start: 03-25-2023 End: 05-17-2023 take 4 mg by mouth every eight hours Ondansetron Discontinued 4 MG PO Q8H March 25, 2023 12:00am May 17, 2023 7:55am Zofran Active pantoprazole 40 mg delayed release oral tablet (4 sources) Proton Pump Inhibitor Start: 08-31-2023 take 40 mg by mouth twice daily Pantoprazole Active 40 MG PO Twice daily 180 90 August 31, 2023 8:17am Start: 05-30-2023 End: 08-31-2023 take 40 mg by mouth once daily Pantoprazole Discontinu ed 40 MG PO Daily 90 90 August 11, 2023 10:12am August 31, 2023 8:17am Completed/Discontinued Medications Medication Drug Class(es) Dates Sig (Normalized) Sig (Original) clenpiq 10-3.5-12 mg-gm -gm/175ml solution (3 sources) Start: 04-08-2023 take 1 dose by mouth twice daily in the evening Clenpiq 10-3.5-12 MG-GM -GM/175ML 175 mL the first dose at 3:00 pm and 175 ml the second dose at 9:00 pm Orally twice a day for 1 days PLEASE CHECK ALLERGIES Mar, Not-Taking/PRN Start: 04-08-2023 take 1 dose by mouth twice daily in the evening Clenpiq 10-3.5-12 MG-GM -GM/175ML 175 mL the first dose at 3:00 pm and 175 ml the second dose at 9:00 pm Orally twice a day for 1 days PLEASE CHECK ALLERGIES Mar, Active cyclobenzaprine hydrochloride 10 mg oral tablet (3 sources) Muscle Relaxant Start: 05-05-2022 take 1 tablet by mouth three times daily as needed for muscle spasms Cyclobenzaprine HCl 10 MG 1 tab(s) Orally 3 times a day prn muscle spasms Apr, Not-Taking omeprazole 20 mg delayed release oral capsule (13 sources) Proton Pump Inhibitor Start: 03-25-2023 End: 05-30-2023 take 20 mg by mouth once daily Omeprazole Discontinued 20 MG PO Daily May 17, 2023 7:55am May 30, 2023 7:00pm swallow whole; do not crush, chew, dissolve, or cut/break Toradol 30 mg/ml (7 sources) Start: 05-05-2022 Toradol 30 mg/ml Apr, 30 mg Payers Date Payer Category Payer Self-pay 1995 Unknown [id number] 2.16.84 [id number] 1995 Unknown [id number] 2.16.84 [id number] 1995 Unknown [id number] 2.16.8 [id number] 1995 Unknown [id number] 2.16.84 [id number] 1995 Unknown [id number] 2.16.84 [id number] 1957 Unknown [id number] [facility] [id number] Unknown [id number] 2.16.8 [id number] Unknown [employer] [id number] Unknown [id number] 2.16.8 [id number] Unknown [id number] 2.16.8 [id number] Unknown [id number] 2.16.8 [id number] Unknown [id number] 2.16.8 [id number] Unknown [id number] 2.16.8 [id number] Unknown [id number] 2.16.8 [id number] Plan of Treatment Date Care Activity Detail Author Start: 08-31-2023 [facility] Start: 07-29-2023 [facility] Start: 07-27-2023 Referral to manager of financial planning [facility] Start: 07-27-2023 Hospital admission [facility] Start: 05-30-2023 [facility] Start: 05-29-2023 Hospital admission [facility] Start: 05-29-2023 Referral to manager of financial planning [facility] Start: 05-25-2023 MR Abdomen WO and W contrast IV [facility] Start: 05-25-2023 MRI of abdomen with contrast MR abdomen wo/w con [facility] Start: 05-17-2023 [facility] Start: 03-25-2023 Computed tomography of abdomen and pelvis with contrast CT abdomen pelvis w con [facility] Start: 03-25-2023 CT Abdomen and Pelvis W contrast IV [facility] Start: 03-25-2023 Bacteria identified in Urine by Culture [facility] Patient Education [facility] Work Phone: Patient referral [facility] Work Phone: Problems Active Problems Problem Classification Problem Date Documented Da te Episodic/Chronic Asthma (7 sources) Exacerbation of asthma; Translations: [Unspecified asthma with (acute) exacerbation] Chronic Esophageal disorders (4 sources) Luong's esophagus without dysplasia; Translations: [Gastro-esophageal reflux disease with esophagitis] Chronic Esophageal disorders (2 sources) Esophagitis; Translations: [Esophagitis] 05-30-2023 Episodic Fluid and electrolyte disorders (6 sources) Lactic acidosis; Translations: [Lactic acidosis] Onset: 07-27-2023 05-29-2023 Episodic Gastritis and duodenitis (7 sources) Gastritis; Translations: [Gastritis, unspecified, without bleeding] Onset: 05-29-2023 05-30-2023 Episodic Noninfectious gastroenteritis (7 sources) Microscopic colitis; Translations: [Microscopic colitis, unspecified] Onset: 07-27-2023 05-29-2023 Chronic Other gastrointestinal disorders (5 sources) Constipation; Translations: [Constipation, unspecified] 05-29-2023 Episodic Other gastrointestinal disorders (4 sources) Change in bowel habit; Translations: [Other symptoms involving digestive system] Onset: 05-17-2023 Episodic Other gastrointestinal disorders (1 source) Altered bowel function; Translations: [Change in bowel habit] 08-06-2023 Episodic Other liver diseases (3 sources) Lesion of liver; Translations: [Liver disease, unspecified] Chronic Other liver diseases (5 sources) Liver disease, unspecified; Translations: [Liver lesion] Onset: 05-25-2023 Chronic Other liver diseases (1 source) Hepatomegaly, not elsewhere classified; Translations: [Hepatomegaly, not elsewhere classified] Onset: 05-28-2023 Episodic Other nutritional; endocrine; and metabolic disorders (1 source) Hypomagnesemia; Translations: [Hypomagnesemia] 08-06-2023 Chronic Other nutritional; endocrine; and metabolic disorders (2 sources) Hypomagnesemia; Translations: [Disorders of magnesium metabolism] Onset: 07-27-2023 07-29-2023 Chronic Other screening for suspected conditions (not mental disorders or infectious disease) (2 sources) Raised cardiac enzyme or marker; Translations: [Other specified abnormal findings of blood chemistry] 08-06-2023 Episodic Other upper respiratory infections (4 sources) Acute upper respiratory infection, unspecified; Translations: [Acute pharyngitis, unspecified] Episodic Otitis media and related conditions (1 source) Otitis media, unspecified, left ear; Translations: [OTITIS MEDIA UNSPECIFIED LEFT EAR] Onset: 08-24-2022 Episodic Regional enteritis and ulcerative colitis (1 source) Ulcerative colitis, unspecified, without complications; Translations: [Ulcerative colitis, unspecified, without complications] Onset: 06-19-2023 Chronic Residual codes; unclassified (1 source) Family history of malignant neoplasm of digestive organs Episodic Spondylosis; intervertebral disc disorders; other back problems (1 source) Sciatica, left side Episodic Sprains and strains (1 source) Strain of muscle, fascia and tendon of lower back, initial encounter Episodic Substance-related disorders (1 source) Nicotine dependence, chewing tobacco, uncomplicated; Translations: [NICOTINE DEPEND CHEW TOBACCO UNCOMP] Onset: 02-24-2022 Chronic Syncope (3 sources) Syncope; Translations: [Syncope and collapse] Onset: 07-27-2023 08-06-2023 Episodic Unclassified (1 source) CONTACT W/AND (SUSP) EXPOS COVID-19; Translations: [CONTACT W/AND (SUSP) EXPOS COVID-19] Onset: 08-24-2022 Unclassified (1 source) dizzy and throwing up Onset: 05-28-2023 Unclassified (1 source) Acidosis, unspecified; Translations: [Acidosis, unspecified] Onset: 05-29-2023 Unclassified (1 source) Esophagitis, unspecified without bleeding; Translations: [Esophagitis, unspecified without bleeding] Onset: 05-29-2023 Past or Other Problems Problem Classification Problem Date Documented Da te Episodic/Chronic Abdominal pain (9 sources) Epigastric pain; Translations: [Epigastric pain] Onset: 03-25-2023 03-25-2023 Episodic Esophageal disorders (1 source) Esophageal disorders Nausea and vomiting (14 sources) Vomiting, unspecified; Translations: [Nausea with vomiting, unspecified] Onset: 02-22-2022 Episodic Noninfectious gastroenteritis (4 sources) Colitis; Translations: [Noninfective gastroenteritis and colitis, unspecified] Onset: 05-29-2023 05-29-2023 Episodic Other aftercare (1 source) Other intermediate card tender (current) drug therapy; Translations: [OTH INTERMEDIATE CURRENT DRUG THERAPY] Onset: 02-24-2022 Episodic Other gastrointestinal disorders (4 sources) Constipation, unspecified; Translations: [Constipation, unspecified] Onset: 05-29-2023 Episodic Unclassified (2 sources) Contact with and (suspected) exposure to covid-19 Z20.822 Procedures Date Procedure Procedure Detail Performing Clinician Start: 08-31-2023 Esophagogastroduodenoscopy PHYSICIAN NO FAMILY Start: 07-29-2023 Stool culture for bacteria PHYSICIAN NO FAMILY Start: 07-28-2023 CT cervical spine without contrast PHYSI LIDA NO FAMILY Start: 07-27-2023 CT of head without contrast PHYSICIAN NO FAMILY Start: 07-27-2023 Urine culture PHYSICIAN NO FAMILY Start: 05-30-2023 Esophagogastroduodenoscopy MD Camelia Roger Work Phone: Start: 05-25-2023 MRI of abdomen with contrast MD Camelia Rosario Work Phone: Start: 05-17-2023 Colonoscopy MD Camelia Roger Work Phone: Start: 03-25-2023 Computed tomography of abdomen and pelvis with contrast MD Camelia Roger Work Phone: Start: 03-25-2023 US scan of gallbladder MD Camelia Roger Work Phone: Start: 03-25-2023 Urine culture MD Camelia Roger Work Phone: Results Test Name Value Interpretation Reference Range Facility Registrationon 10-28-2023 Registration [id number] Normal [facility] Amphetamine Screen Ql (U)Ord ered By: Imagnes Gill on 08-31-2023 Amphetamines Ql (U) Negative Negative [facility] Barbiturates [Presence] in U rine by Screen methodOrdered By: Imad Asaad on 08-31-2023 Barbiturates Screen Ql (U) Negative Negative [facility] Benzodiazepines Screen Ql (U )Ordered By: Imad Asaad on 08-31-2023 Benzodiazepines Ql (U) Negative Negative [facility] Benzoylecgonine [Presence] i n Urine by Screen methodOrdered By: Imagnes Asaad on 08-31-2023 Benzoylecgonine Screen Ql (U) Negative Negative [facility] Cannabinoids [Presence] in U rine by Screen methodOrdered By: Imad Asaad on 08-31-2023 Cannabinoids Screen Ql (U) Positive Negative [facility] Comment on above: These are unconfirme d results and should not be used for legal purposes. Drug Cut-Off Concentration: AMPH 1000 ng/mL HALIMA 200 ng/mL JOSUÉ 200 ng/mL COCM 300 ng/mL OP 300 ng/mL PCP 25 ng/mL THC 20 ng/mL Drug Screen,Urineon 08-31-19 24 Amphetamine Screen,Urine Negative Normal Negative [facility] Comment on above: Order Comment: Comme nt run stat on admission Performed By: #### U HCG, URDS #### [facility] [address] [place] [address] Barbiturate Screen,Urine Negative Normal Negative [facility] Comment on above: Order Comment: Comme nt run stat on admission Performed By: #### U HCG, URDS #### [facility] [address] [place] [address] Benzodiazepines Screen,Urine Negative Normal Negative [facility] Comment on above: Order Comment: Comme nt run stat on admission Performed By: #### U HCG, URDS #### [facility] [address] [place] [address] Cannabinoid Screen,Urine Positive High Negative [facility] Comment on above: Order Comment: Comme nt run stat on admission Result Comment: Thes e are unconfirmed results and should not be used for legal purposes. Drug Cut-Off Concentration: AMPH 1000 ng/mL HALIMA 200 ng/mL JOSUÉ 200 ng/mL COCM 300 ng/mL OP 300 ng/mL PCP 25 ng/mL THC 20 ng/mL PERFORMED BY: [place] [address] PATHOLOGIST [employer] COUNSELOR SANDIE MAYES M.D. Performed By: #### U HCG, URDS #### [address] Cocaine Screen,Urine Negative Normal Negative [facility] Comment on above: Order Comment: Comme nt run stat on admission Performed By: #### U HCG, URDS #### [address] Opiate Screen,Urine Negative Normal Negative [facility] Comment on above: Order Comment: Comme nt run stat on admission Performed By: #### U HCG, URDS #### [address] Phencyclidine Screen,Urine Negative Normal Negative [facility] Comment on above: Order Comment: Comme nt run stat on admission Performed By: #### U HCG, URDS #### [place] [address] [place] HCG ( test) IA.rapi d Ql (U)Ordered By: Imagnes Asaad on 08-31-2023 HCG ( test) Ql (U) Negative [facility] HCG,Urineon 08-31-2023 Beta HCG ( test) Ql (U) Negative Normal [facility] Comment on above: Order Comment: Comme nt run stat on admission Result Comment: PERF ORMED BY: [place] [address] PATHOLOGIST [employer] COUNSELOR SANDIE MAYES M.D. Performed By: #### U HCG, URDS #### [address] [address] [facility] Sourav 08-31-2023 L Specimen: Received: 08/31/23 Status: MARC Murphy Num: [id number] Spec Type: Surgical Subm Dr: Kenrick Gill MD Tissues: A GASTRIC FOR HP (GASTRIC HP) Procedures: HE/2, Gross/Micro L4, H PYLORI Age/ Patient Sex Location Account Attending Physician MadisonChristina J 28/F [id number] Kenrick Gill MD SPEC NUM: RECD: 08/31/23 STATUS: MARC MURPHY NUM: [id number] KATIE: 08/31/23 DR: Kenrick Gill MD ENTERED: 08/31/[address]: SPEC TYPE: Surgical DEPT: S ORDERED: HE/2, Gross/Micro L4, H PYLORI ORDERED: HE/2, Gross/Micro L4, H PYLORI Pathological Diagnosis Gastric Biopsy: Chronic Inactive Gastritis. Special Stain Is Negative For H. Pylori Organisms. Gross Description In formalin labeled gastric biopsy rule out H. pylori are two pieces of avila-pink mucosa ranging in size from 0.2 x 0.2 x 0.1 cm to 0.3 x 0.2 x 0.1 cm. Submitted entirely in A1. RG Clinical history: Luong's esophagus CPT Codes 73408, 31650 Specimen: Received: 08/31/23 Status: MARC Murphy Num: [id number] Spec Type: Surgical Subm Dr: Kenrick Gill MD Tissues: A GASTRIC FOR HP (GASTRIC HP) Procedures: HE/2, Gross/Micro L4, H PYLORI Patient: Jeannie Wallaceily Kale [id number] (Continued) Signed (signature on file) Rory Espinal MD 09/01/23 1412 Normal [facility] Opiates [Presence] in Urine by Screen methodOrdered By: Kenrick Gill on 08-31-2023 Opiates Screen Ql (U) Negative Negative [facility] Phencyclidine Screen Ql (U)O rdered By: Kenrick Gill on 08-31-2023 Phencyclidine Ql (U) Negative Negative [facility] Basic Metabolic Panelon 03-0 Anion gap [Moles/Vol] 8.8 mmol/L Normal 6.0-15.0 [facility] Comment on above: Performed By: #### B MARLIN MG, CBC #### [facility] [address] [place] [address] Calcium [Mass/Vol] 8.3 mg/dL Low 8.6-10.3 [facility] Comment on above: Performed By: #### B MARLIN, MG, CBC #### [facility] [address] [place] [address] [place] Chloride [Moles/Vol] 106 mmol/L Normal 98-107 [facility] Comment on above: Performed By: #### B MP, MG, CBC #### [facility] [address] [place] [address] [place] CO2 [Moles/Vol] 26.0 mmol/L Normal 21.0-31.0 The [facility] Comment on above: Performed By: #### B MP, MG, CBC #### [place] [address] [place] Creatinine [Mass/Vol] 0.53 mg/dL Low 0.60-1.20 [facility] Comment on above: Performed By: #### B MP, MG, CBC #### [place] [address] [place] Creatinine Clr Calc Pharmacy 137.78 Normal [facility] Comment on above: Performed By: #### B MP, MG, CBC #### [place] [address] [place] GFR/1.73 sq M.predicted MDRD (S/P/Bld) [Vol rate/Area] mL/min/{1.73_m2} Normal [facility] Comment on above: Performed By: #### B MP, MG, CBC #### [place] [address] [place] Glucose [Mass/Vol] 90 mg/dL Normal 70-100 [facility] Comment on above: Result Comment: [facility] Glucose Reference Range is dependent on time and content of last meal. Glucose of more than 200 mg/dL in a nonstressed, ambulatory subject supports the diagnosis of Diabetes Mellitus. ADA recommended reference range Performed By: #### B MP, MG, CBC #### [address] Potassium [Moles/Vol] 3.8 mmol/L Normal 3.5-5.1 [facility] Comment on above: Performed By: #### B MP, MG, CBC #### [address] [place] [address] [place] Sodium [Moles/Vol] 137 mmol/L Normal 136-145 [facility] Comment on above: Performed By: #### B MP, MG, CBC #### [facility] [address] Urea nitrogen [Mass/Vol] 3 mg/dL Low 7-25 [facility] Comment on above: Performed By: #### B MP, MG, CBC #### [facility] [address] Basophils Auto (Bld) [#/Vol] Ordered By: Kori Feng on 07-29-2023 Basophils (Bld) [#/Vol] 0.0 10*3/uL 0.0-0.2 [facility] Basophils/100 WBC Auto (Bld) Ordered By: Kori Feng on 07-29-2023 Basophils/100 WBC (Bld) 0.5 % . [facility] Calcium [Mass/volume] in Ser um or PlasmaOrdered By: Kori Feng on 07-29-2023 Calcium [Mass/Vol] 8.3 mg/dL 8.6-10.3 [facility] Carbon dioxide, total [Moles /volume] in Serum or PlasmaOrdered By: Kori Feng on 07-29-2023 CO2 [Moles/Vol] 26.0 mmol/L 21.0-31.0 [facility] Celiacon 07-29-2023 Deamidated Gliadin Abs, IgA 5 Normal 0-19 [facility] Comment on above: Result Comment: Nega tive 0 - 19 Weak Positive 20 - 30 Moderate to Strong Positive >30 Performed By: #### B MP, MG, CBC #### [facility] [address] Deamidated Gliadin Abs, IgG 1 Normal 0-19 [facility] Comment on above: Result Comment: Nega tive 0 - 19 Weak Positive 20 - 30 Moderate to Strong Positive >30 Performed By: #### B MP, MG, CBC #### [facility] [address] [place] [address] [place] Endomysial Antibody IgA Negative Normal Negative [facility] Comment on above: Performed By: #### B MP, MG, CBC #### [facility] [address] Immunoglobulin A, Qn, Serum 248 mg/dL Normal 87-352 [facility] Comment on above: Result Comment: Perf ormed at: - [facility] [address] [id number] Electromechanic: Jona Guy PhD, Phone: [phone] Performed By: #### B MP, MG, CBC #### [facility] [address] T-Transglutaminase (tTG) IgA <2 Normal 0-3 [facility] Comment on above: Result Comment: Nega tive 0 - 3 Weak Positive 4 - 10 Positive >10 Tissue Transglutaminase (tTG) has been identified as the endomysial antigen. Studies have demonstr- ated that endomysial IgA antibodies have over 99% specificity for gluten sensitive enteropathy. Performed By: #### B MP, MG, CBC #### [facility] [address] T-Transglutaminase (tTG) IgG 2 Normal 0-5 [facility] Comment on above: Result Comment: Nega tive 0 - 5 Weak Positive 6 - 9 Positive >9 Performed By: #### B MP, MG, CBC #### [facility] [address] [place] [address] Celiac Disease Genetics HLA DQon 07-29-2023 CDDQ2 Additional Information Normal . [facility] Comment on above: Result Comment: Refe rences: 1. Rm ROLDAN and Albert Amanda. Celiac Disease. N Eng J Med 2007; 357:2098-9723. 2. Megiorni F, Maya B, Bonamico M et al. HLA-DQ and risk gradient for celiac disease. Hum Immunol 2009; 70:55-59. 3. Jaja MM, Norman TC, Chantel FM et al. Stratifying risk for celiac disease in a large at-risk [place] population by using HLA alleles. Clin Gastroenterol Hepatol 2009; 7:966-971. 4. Radha CARBAJAL and Lie BA. (2005). Celiac Disease Genetics: Current Concepts and Practical Applications. Clin Gastroenterol and Hepat 3:843-851. 5. Gianluca CL, Adonis DO, Rm ROLDAN, et al. Celiac Disease. In: Curry RA, Dillon TC, Siddhartha CR, She K, editors. Segundo Nayatek), [facility], [place], November 23, 2007:1-27. http://www.ncbi.nlm.nih.gov/booksmandeepf/br.fcgi?book=genepart=mohinder iac PMID [id number] (PubMed) 6. Charlee W. Emerging concepts in celiac disease. Curr Opin Pediatr 2004;16:552-559. Performed at: [address] [place] [id number] Electromechanic: Nina Rodriguez PhD, Phone: [phone] PERFORMED BY: [place] [address] PATHOLOGIST MITOCHONDRIAL DISORDERS COUNSELOR SANDIE MAYES M.D. Performed By: #### B MP, MG, CBC #### [address] Comment: Normal . [facility] Comment on above: Result Comment: This test was performed using Polymerase Chain Reaction (PCR) and Sequence Specific Oligonucleotide Probes (SSOP) (Silith.IO) technique. Sequence Based Typing (SBT) may be used as a supplemental method when necessary. If you have questions, please call HLA customer service at or email at [email or web address]. Performed By: #### B MP, MG, CBC #### [address] Dq2 (Dqa1 0501/0505,Dqb1 02Xx) Negative Normal . [facility] Comment on above: Performed By: #### B MP, MG, CBC #### [place] [address] [place] Dq8 (Dqa1 03Xx, Dqb1 0302) Negative Normal . [facility] Comment on above: Result Comment: Coretta torres Results: DQB1*03:EENRC,05:EEMYB DQA1*01:EENVT,05:EENPV Code Translation: EEMYB 05:01/05:12/05:18/05:20/05:27/05:30/05:31 /05:32/05:44/05:45/05:103/05:104/05:107 /05:133/05:137/05:139/05:144/05:148/05:150 /05:152/05:155/05:158/05:159/05:160/05:162 /05:163/05:164/05:167/05:169/05:171/05:173 /05:176/05:177/05:183/05:184/05:185N /05:188/05:190/05:193/05:194/05:195/05:197 /05:216/05:217/05:219/05:223/05:225/05:226 /05:228/05:230/05:232/05:234/05:237/05:246 /05:248/05:249/05:252/05:256/05:263/05:267 /05:268/05:270/05:271/05:272/05:275/05:277 /05:279/05:283N/05:286/05:288/05:290 /05:291/05:295N/05:297/05:298/05:299/05:300 EENPV 05:01/05:05/05:09/05:11/05:13/05:14/05:17N /05:20/05:24/05:25/05:29Q/05:35/05:39 /05:43/05:44/05:46/05:48/05:50/05:53/05:58 /05:60/05:62 EENRC 03:01/03:22/:27/03:28/:29/:35/03:42 /03:44/03:46/03:47/03:49/03:50/03:51/03:55 /03:73/03:83/03:84N/03:92/03:93/03:94 /03:114/03:115/03:116/03:165/03:169/03:182 /03:191/03:196/03:197Q/03:198/03:206 /03:241/03:242/03:243/03:246/03:252/03:253 /03:254/03:266/03:276N/03:281/03:284 /03:285/03:288/03:290/03:291/03:292/03:293 /03:294/03:297/03:302/03:305/03:306/03:309 /03:312/03:314/03:317/03:326/03:328/03:329 /03:330/03:331/03:338N/03:340N/03:342 /03:350/03:354N/03:358N/03:361/03:370 /03:377/03:378/03:391/03:396/03:399N /03:400N/03:404/03:407N/03:419/03:420 /03:421/03:423/03:424/03:426/03:430/03:431 /03:432/03:434/03:435/03:436/03:439/03:448 /03:451/03:454/03:460/03:465/03:467/03:468 /03:472/03:475/03:480Q/03:482/03:483 /03:486/03:491 EENVT 01:/:04/:05/:18:22/:27/:29 :37/:49/:53/:55/:60/:64/:66 /:67/:80/:83/:86/:88N/:89 /:95/:96/:98/01:99 The patient is positive for DQA1*05, one half of the DQ2 heterodimer. The Celiac Disease risk from the HLA DQA/DQB genotype is approximately 1:1842 (0.05%). This is less than the 1% risk in the general population. Allele interpretation for all loci based on IMGT/HLA database version 3.49.0 HLA Lab CLIA ID Number [id number] Greater than 95% of celiac patients are positive for either DQ2 or DQ8 (Dell, (1993) Gastroenterology 105:910-922). However these antigens may also be present in patients who do not have Celiac disease. Performed By: #### B MP, MG, CBC #### [address] Chloride [Moles/volume] in S isidro or PlasmaOrdered By: Kori Feng on 07-29-2023 Chloride [Moles/Vol] 106 mmol/L 98-107 [facility] Complete Blood Count Auto Di ffon 07-29-2023 Basophils (Bld) [#/Vol] 0.0 10*3/uL Normal 0.0-0.2 [facility] Comment on above: Result Comment: PERF ORMED BY: [place] [address] PATHOLOGIST [employer]AL DISORDERS COUNSELOR SANDIE MAYES M.D. Performed By: #### B MP, MG, CBC #### [address] Basophils/100 WBC (Bld) 0.5 % Normal . [facility] Comment on above: Performed By: #### B MP, MG, CBC #### [place] [address] [place] Eosinophils (Bld) [#/Vol] 0.1 10*3/uL Normal 0.0-0.45 [facility] Comment on above: Performed By: #### B MP, MG, CBC #### [place] [address] [place] Eosinophils/100 WBC (Bld) 2.1 % Normal . [facility] Comment on above: Performed By: #### B MP, MG, CBC #### [address] Erythrocyte distribution width (RBC) [Ratio] 13.5 % Normal 11.9-15.3 [facility] Comment on above: Performed By: #### B MP, MG, CBC #### [address] Hematocrit (Bld) [Volume fraction] 36.1 % Normal 34.0-46.4 [facility] Comment on above: Performed By: #### B MP, MG, CBC #### [address] Hemoglobin (Bld) [Mass/Vol] 12.3 g/dL Normal 11.8-15.4 [facility] Comment on above: Performed By: #### B MP, MG, CBC #### [address] Lymphocytes (Bld) [#/Vol] 1.7 10*3/uL Normal 1.00-4.8 [facility] Comment on above: Performed By: #### B MP, MG, CBC #### [address] Lymphocytes/100 WBC (Bld) 24.3 % Normal . [facility] Comment on above: Performed By: #### B MP, MG, CBC #### [address] MCH (RBC) [Entitic mass] 34.3 pg Normal 24.7-34.3 [facility] Comment on above: Performed By: #### B MP, MG, CBC #### [address] MCV (RBC) [Entitic vol] 100.7 fL High 80-100 [facility] Comment on above: Performed By: #### B MP, MG, CBC #### [address] Mean Corpuscular HGB Conc 34.1 g/dL Normal 32.0-35.0 [facility] Comment on above: Performed By: #### B MP, MG, CBC #### [place] [address] [place] Monocytes (Bld) [#/Vol] 0.6 10*3/uL Normal 0.0-0.8 [facility] Comment on above: Performed By: #### B MP, MG, CBC #### [facility] [address] Monocytes/100 WBC (Bld) 8.8 % Normal . [facility] Comment on above: Performed By: #### B MP, MG, CBC #### [facility] [address] Neutrophils (Bld) [#/Vol] 4.6 10*3/uL Normal 1.8-7.7 [facility] Comment on above: Performed By: #### B MP, MG, CBC #### [facility] [address] Neutrophils/100 WBC (Bld) 64.3 % Normal . [facility] Comment on above: Performed By: #### B MP, MG, CBC #### [facility] [address] NRBC% 0.1 /100{WBC} Normal 0-0.5 [facility] Comment on above: Performed By: #### B MP, MG, CBC #### [facility] [address] Platelet mean volume (Bld) [Entitic vol] 7.0 fL Normal 6.3-10.7 The [facility] Comment on above: Performed By: #### B MP, MG, CBC #### [facility] [address] [place] [address] [place] Platelets (Bld) [#/Vol] 112 10*3/uL Low 150-450 [facility] Comment on above: Performed By: #### B MP, MG, CBC #### [facility] [address] [place] [address] [place] RBC (Bld) [#/Vol] 3.59 10*6/uL Low 3.60-5.00 [facility] Comment on above: Performed By: #### B MP, MG, CBC #### [facility] [address] [place] [id number] [facility] WBC (Bld) [#/Vol] 7.2 10*3/uL Normal 3.8-11.6 [facility] Comment on above: Performed By: #### B MP, MG, CBC #### [facility] [address] [place] [id number] [facility] Creatinine [Mass/volume] in Serum or PlasmaOrdered By: Kori Feng on 07-29-2023 Creatinine [Mass/Vol] 0.53 mg/dL 0.60-1.20 [facility]acic [facility] [place] [address] [place] [address] Echocardiogram Signed Patient: Christina Wallace MR#: [id number] 85 : 1995 Acct:[id number] Age/Sex: 28 / F ADM Date: 07/27/23 Loc: Room: 9W2912-8 Type: ADM IN Attending Dr: Mann Rowley MD Ordering Provider: Cedric Biggs MD Date of Service: 07/28/2312/13/1332 [facility] tran[facility]: syncope Copies to: MD Logan Hyman MD BSA: 1.7 m2 BP: 126/83 mmHg HR: 87 Reason For Study: syncope History: Smoker - Marijuana use Interpretation Summary The left ventricular size, thickness and function are normal Ejection Fraction = 55-60%. A variety of Doppler measurements indicate normal left ventricular diastolic function. The left ventricular wall motion is normal. Normal transthoracic echocardiogram. Procedure/Quality: A two-dimensional transthoracic echocardiogram with color flow and Doppler was performed. The study was technically good with many images being of high quality. Left Ventricle: The left ventricular size, thickness and function are normal. Ejection Fraction = 55-60%. A variety of Doppler measurements indicate normal left ventricular diastolic function. The left ventricular wall motion is normal. No left ventricular thrombus or mass is seen. Left Atrium: The left atrium appears normal in size. The atrial septum appears normal. Right Atrium: The right atrium appears normal in size. Right Ventricle: The right ventricle is normal in size and function. Aortic Valve: The aortic valve is normal in structure. Mitral Valve: The mitral valve is normal in structure. There is no mitral regurgitation noted. Tricuspid Valve: No tricuspid regurgitation. Right ventricular systolic pressure is normal. Arteries: The aortic root is normal size. The aortic arch was visualized and no abnormalities were seen. Pericardium/Pleura: No pericardial effusion seen. There is no pleural effusion. IVC/Hepatic Veins: The IVC is normal in size with an inspiratory collapse of greater then 50%, suggesting normal right atrial pressure. Measurements with Normals IVSd: 0.92 cm (0.7-1.1 cm)LVIDd: 5.0 cm (3.7-5.4 cm) LVPWd: 0.91 cm (0.7-1.1 cm)LVIDs: 3.2 cm (2.3-3.6 cm) LA dimension: 3.4 cm (2.3-4.0 cm)Ao root diam: 3.1 cm(2.0-3.6 cm) asc Aorta Diam: 2.6 cm(2.1-3.4cm) Doppler with Normals RVSP(TR): 35.1 mmHg (18-35mmHg) LV V1 max: 131.8 cm/sec (0.7-1.7m/s)MV E max jasper: 135.0 cm/sec(0.8-1.3m/s) MV A max jasper: 80.4 cm/sec(0.0-0.0m/s) MV E/A: 1.7 (<1.5) MMode/2D Measurements Calculations RVDd: 2.4 cm FS: 34.5 % Ao root area: LVOT diam: 2.0 cm TAPSE: 2.4 cm EDV(Teich): 7.5 cm2 LVOT area: 3.3 cm2 RV S Jasper: 115.9 ml 20.7 cm/sec ESV(Teich): 42.4 ml EF(Teich): 63.4 % __ LVLd ap4: 6.9 cm SV(MOD-sp4): LAV(MOD-sp4): LA A2 area: 12.4 cm2 EDV(MOD-sp4): 36.7 ml 33.1 ml 57.0 ml LAV(MOD-sp2): LA A4 area: 14.3 cm2 LVLs ap4: 5.6 cm 28.8 ml LA length (vol): ESV(MOD-sp4): 5.1 cm 20.3 ml LA vol: 29.5 ml EF(MOD-sp4): 64.4 % LA vol index: 17.8 ml/m2 Doppler Measurements Calculations MV dec time: MV max PG: E/E' lat: 7.2 MV dec slope: 0.25 sec 53.0 mmHg E/E' med: 9.8 532.9 cm/sec2 __ Ao V2 max: LV V1 max PG: MR max jasper: TV max P.0 mmHg 188.5 cm/sec 7.0 mmHg 364.2 cm/sec Ao max PG: LV V1 mean PG: MR max P.2 mmHg 3.4 mmHg 54.7 mmHg Ao mean PG: LV V1 mean: 6.6 mmHg 86.3 cm/sec Ao V2 mean: LV V1 VTI: 25.1 cm 120.7 cm/sec Ao V2 VTI: 35.7 cm MALICK(I,D): 2.3 cm2 MALICK(V,D): 2.3 cm2 __ TR max jasper: 274.5 cm/sec TR max P.1 mmHg RAP systole: 5.0 mmHg ___ Transcribed By: SCV Performed At: 07/29/23 1144 Signed By: Logan Varma MD 07/29/23 1632 Normal [facility] Eosinophils Auto (Bld) [#/Vo l]Ordered By: Kori Feng on 07-29-2023 Eosinophils (Bld) [#/Vol] 0.1 10*3/uL 0.0-0.45 [facility] Eosinophils/100 WBC Auto (Bl d)Ordered By: Kori Feng on 07-29-2023 Eosinophils/100 WBC (Bld) 2.1 % . [facility] Erythrocyte distribution wid th Auto (RBC) [Ratio]Ordered By: Kori Feng on 07-29-2023 Erythrocyte distribution width (RBC) [Ratio] 13.5 % 11.9-15.3 [facility] Folate [Mass/volume] in Seru m or PlasmaOrdered By: Cedric Biggs on 07-29-2023 Folate [Mass/Vol] 11.6 ng/mL >5.9 [facility] Comment on above: Folate reference ran ge: >5.9 ng/mlThe WHO technical consultation on folate and vitamin [id number] has determined that folate concentrations lessthan 4 ng/ml are considered deficient. Glucose [Mass/volume] in Ser um or PlasmaOrdered By: Kori Feng on 07-29-2023 Glucose [Mass/Vol] 90 mg/dL 70-100 [facility] Comment on above: ADA recommended refe rence rangeRandom Glucose Reference Range is dependent on time and content of last meal. Glucose of more than 200 mg/dL in a nonstressed, ambulatory subject supports the diagnosis of Diabetes Mellitus. Hematocrit Auto (Bld) [Volum e fraction]Ordered By: Kori Feng on 07-29-2023 Hematocrit (Bld) [Volume fraction] 36.1 % 34.0-46.4 [facility] Hemoglobin [Mass/volume] in BloodOrdered By: Kori Feng on 07-29-2023 Hemoglobin (Bld) [Mass/Vol] 12.3 g/dL 11.8-15.4 [facility] Human leukocyte antigen (HLA ) DQ2 detectionOrdered By: Trung Dalal on 07-29-2023 HLA-DQ2 Ql (Bld/Tiss) Negative . [facility] Human leukocyte antigen (HLA ) DQ8 detectionOrdered By: Trung Dalal on 07-29-2023 HLA-DQ8 Ql (Bld/Tiss) Negative . [facility] Comment on above: Final Results:DQB1*0 3:EENRC,05:EEMYBDQA1*01:LUCILLE,05:EENPVCode Translation:EEMYB 05:05/27:04/26:07/10:09/10:16/10:19/10:31 /05:32/05:44/05:45/05:103/05:104/05:107 /05:133/05:137/05:139/05:144/05:148/05:150 /05:152/05:155/05:158/05:159/05:160/05:162 /05:163/05:164/05:167/05:169/05:171/05:173 /05:176/05:177/05:183/05:184/05:185N /05:188/05:190/05:193/05:194/05:195/05:197 /05:216/05:217/05:219/05:223/05:225/05:226 /05:228/05:230/05:232/05:234/05:237/05:246 /05:248/05:249/05:252/05:256/05:263/05:267 /05:268/05:270/05:271/05:272/05:275/05:277 /05:279/05:283N/05:286/05:288/05:290 /05:291/05:295N/05:297/05:298/05:299/05:300EENPV 05:01/05:05/05:09/05:11/05:13/05:14/05:17N /05:20/05:24/05:25/05:29Q/05:35/05:39 /05:43/05:44/05:46/05:48/05:50/05:53/05:58 /05:60/05:62EENRC 03:01/03:22/03:27/03:28/03:29/03:35/03:42 /03:44/03:46/03:47/03:49/03:50/03:51/03:55 /03:73/03:83/03:84N/03:92/03:93/03:94 /03:114/03:115/03:116/03:165/03:169/03:182 /03:191/03:196/03:197Q/03:198/03:206 /03:241/03:242/03:243/03:246/03:252/03:253 /03:254/03:266/03:276N/03:281/03:284 /03:285/03:288/03:290/03:291/03:292/03:293 /03:294/03:297/03:302/03:305/03:306/03:309 /03:312/03:314/03:317/03:326/03:328/03:329 /03:330/03:331/03:338N/03:340N/03:342 /03:350/03:354N/03:358N/03:361/03:370 /03:377/03:378/03:391/03:396/03:399N /03:400N/03:404/03:407N/03:419/03:420 /03:421/03:423/03:424/03:426/03:430/03:431 /03:432/03:434/03:435/03:436/03:439/03:448 /03:451/03:454/03:460/03:465/03:467/03:468 /03:472/03:475/03:480Q/03:482/03:483 /03:486/03:491EENVT 01:01/:04/:05/01:18/:22/:27/:29 /:37/01:49/01:53/01:55/01:60/01:64/01:66 /01:67/01:80/01:83/01:86/01:88N/01:89 /01:95/01:96/01:98/01:99The patient is positive for DQA1*05, one half of the [id number]. The Celiac Disease risk from the HLA DQA/DQBgenotype is approximately 1:1842 (0.05%). This is lessthan the 1% risk in the general population.Allele interpretation for all loci based on IMGT/HLAdatabase version 3.49.0A Lab [place] ID Number [id number] than 95% of celiac patients are positive for eitherDQ2 or DQ8 (Radha and Jason, (1993) Vvnqmsspwbeqvmbs275:910-922). However these antigens may also be present inpatients who do not have Celiac disease. IgA [Mass/volume] in Serum o r PlasmaOrdered By: Trung Dalal on 07-29-2023 IgA [Mass/Vol] 248 mg/dL 87-352 [facility] Comment on above: Performed at: [address] [id number] Director: Jona Guy PhD, Phone: [phone] Leukocytes [#/volume] correc james for nucleated erythrocytes in Blood by Automated counOrdered By: Kori Feng on 07-29-2023 WBC corrected for nucl RBC Auto (Bld) [#/Vol] 7.2 10*3/uL 3.8-11.6 [facility] Lymphocytes Auto (Bld) [#/Vo l]Ordered By: Kori Feng on 07-29-2023 Lymphocytes (Bld) [#/Vol] 1.7 10*3/uL 1.00-4.8 [facility] Lymphocytes/100 WBC Auto (Bl d)Ordered By: Kori Feng on 07-29-2023 Lymphocytes/100 WBC (Bld) 24.3 % . [facility] MCH Auto (RBC) [Entitic mass ]Ordered By: Kori Feng on 07-29-2023 MCH (RBC) [Entitic mass] 34.3 pg 24.7-34.3 [facility] MCHC Auto (RBC) [Mass/Vol]Or dered By: Kori Feng on 07-29-2023 MCHC (RBC) [Mass/Vol] 34.1 g/dL 32.0-35.0 [facility] MCV Auto (RBC) [Entitic vol] Ordered By: Kori Feng on 07-29-2023 MCV (RBC) [Entitic vol] 100.7 fL 80-100 [facility] Monocytes Auto (Bld) [#/Vol] Ordered By: Kori Feng on 07-29-2023 Monocytes (Bld) [#/Vol] 0.6 10*3/uL 0.0-0.8 [facility] Monocytes/100 WBC Auto (Bld) Ordered By: Kori Feng on 07-29-2023 Monocytes/100 WBC (Bld) 8.8 % . [facility] Neutrophils Auto (Bld) [#/Vo l]Ordered By: Kori Jung on 07-29-2023 Neutrophils (Bld) [#/Vol] 4.6 10*3/uL 1.8-7.7 [facility] Neutrophils/100 WBC Auto (Bl d)Ordered By: Kori Feng on 07-29-2023 Neutrophils/100 WBC (Bld) 64.3 % . [facility] No Panel InformationOrdered By: Trung Dalal on 07-29-2023 Celiac Gene Interpretation See comment . [facility] Comment on above: References:1. Rm ROLDAN and Albert Amanda. Celiac Disease. N Eng J Med 2007; 357:2178-3704.2. Megiorni F, Maya B, Bonaalcideso M et al. HLA-DQ and risk gradient for celiac disease. Hum Immunol 2009; 70:55-59.3. Jaja MM, Pio TC, Chantel FM et al. Stratifying risk for celiac disease in a large at-risk [facility] population by using HLA alleles. Clin Gastroenterol Hepatol 2009; 7:966-971.4. Radha CARBAJAL and Alaina BA. (2005). Celiac Disease Genetics: Current Concepts and Practical Applications. Clin Gastroenterol and Hepat 3:843-851.5. Gianluca CL, Adonis DO, Rm ROLDAN, et al. Celiac Disease. In: Curry RA, Dillon TC, Siddhartha CR, She K, editors. ImerZnodejennifer Nayatek), [facility], [place], November 23, 2007:1-27. http://www.ncbi.nlm.nih.gov/mickie/br.fcgi?book=genepart=mohinder iac PMID [id number] (PubMed)6. Charlee Herron. Emerging concepts in celiac disease. Curr Opin Pediatr 2004;16:552-559.Performed at: [address] [place] [id number] [place] [address] [id number] Director: Nina Rodriguez PhD, Phone: [phone] Endomysial IgA Antibody Negative Negative [facility] HLA Genotype Interpretation See comment . [facility] Comment on above: This test was perfor med using Polymerase Chain Reaction(PCR) and Sequence Specific Oligonucleotide Probes (SSOP)(Silith.IO) technique. Sequence Based Typing (SBT) may beused as a supplemental method when necessary.If you have questions, please call HLA customer serviceat or email at [email or web address]. No Panel InformationOrdered By: Kori Feng on 07-29-2023 Estimated GFR (CKD-EPI) > 60.0 mL/Min [facility] Creatinine Clearance (Chem 137.78 [facility] Nucleated erythrocytes [Pres ence] in Blood by Automated countOrdered By: Kori Feng on 07-29-2023 Nucleated RBC Auto Ql (Bld) 0.1 /100{WBC} 0-0.5 [facility] Platelet mean volume Auto (B ld) [Entitic vol]Ordered By: Kori Feng on 07-29-2023 Platelet mean volume (Bld) [Entitic vol] 7.0 fL 6.3-10.7 [facility] Platelets Auto (Bld) [#/Vol] Ordered By: Kori Feng on 07-29-2023 Platelets (Bld) [#/Vol] 112 10*3/uL 150-450 [facility] Potassium [Moles/volume] in Serum or PlasmaOrdered By: Kori Feng on 07-29-2023 Potassium [Moles/Vol] 3.8 mmol/L 3.5-5.1 [facility] RBC Auto (Bld) [#/Vol]Ordere d By: Kori Feng on 07-29-2023 RBC (Bld) [#/Vol] 3.59 10*6/uL 3.60-5.00 [facility] Reducing Substance, Stoolon 07-29-2023 Reducing Substance, Stool Normal Normal Normal [facility] Comment on above: Result Comment: Perf ormed at: [employer] [address] [place] [address] [id number] [employer]romechanic: Kashmir Ayala [facility], Phone: [phone] PERFORMED BY: [facility] [address] [place] [address] PATHOLOGIST [employer]ORD[employer] COUNSELOR SANDIE MAYES M.D. Performed By: #### S TLFECRED #### [facility] , Serum gliadin peptide IgA an tibody assay (units/volume)Ordered By: Trung Dalal on 07-29-2023 Gliadin peptide IgA Qn (S) 5 units 0-19 [facility] Comment on above: Negative 0 - 19 Weak Positive 20 - 30 Moderate to Strong Positive >30 Serum gliadin peptide IgG an tibody assay (units/volume)Ordered By: Trung Dalal on 07-29-2023 Gliadin peptide IgG Qn (S) 1 units 0-19 [facility] Comment on above: Negative 0 - 19 Weak Positive 20 - 30 Moderate to Strong Positive >30 Serum or plasma anion gap de terminationOrdered By: Koir Feng on 07-29-2023 Anion gap [Moles/Vol] 8.8 mmol/L 6.0-15.0 [facility] Serum tissue transglutaminas e (tTG) IgA antibody assay (units/volume)Ordered By: Trung Dalal on 07-29-2023 tTG IgA Qn (S) <2 U/mL 0-3 [facility] Comment on above: Negative 0 - 3 Weak Positive 4 - 10 Positive >10 Tissue Transglutaminase (tTG) has been identified as the endomysial antigen. Studies have demonstr- ated that endomysial IgA antibodies have over 99% specificity for gluten sensitive enteropathy. Serum tissue transglutaminas e (tTG) IgG antibody assay (units/volume)Ordered By: Trung Dalal on 07-29-2023 tTG IgG Qn (S) 2 U/mL 0-5 [facility] Comment on above: Negative 0 - 5 Weak Positive 6 - 9 Positive >9 Sodium [Moles/volume] in Ser um or PlasmaOrdered By: Kori Feng on 07-29-2023 Sodium [Moles/Vol] 137 mmol/L 136-145 [facility] Stool Cultureon 07-29-2023 Stool culture Negative for Shiga T oxin 1 Negative for Shiga Toxin 2 ---- A negative Shiga Toxin result may occur if the antigen level in the specimen is below the detection limit of the assay. Stool culture results No Salmonella, Shigella, Campy or E. coli 0157:H7 Isolated PERFORMED BY: [place] [address] PATHOLOGIST MITOCHONDRIAL DISORDERS COUNSELOR SANDIE MAYES M.D. Normal [facility] Comment on above: Performed By: #### M G, CBC, BMP #### [facility] [address] [place] [id number] [facility] Stool bacteria identificatio n by cultureOrdered By: Trung Dalal on 07-29-2023 Bacteria identified Cx Nom (Stl) [facility] Stool reducing substances de tectionOrdered By: Trung Dalal on 07-29-2023 Reducing substances Ql (Stl) Normal Normal [facility] Comment on above: Performed at: [employer] [address] [id number] Director: Kashmir Ayala [facility], Phone: [phone] Thyroid Stimulating Hormoneo n 07-29-2023 TSH Qn 1.66 m[IU]/L Normal 0.45-5.33 [facility] Comment on above: Result Comment: PERF ORMED BY: [address] [address] PATHOLOGIST [employer]CH[employer]ORDERS COUNSELOR SANDIE MAYES M.D. Performed By: #### B MP, MG, CBC #### [facility] [address] [place] [address] [facility] Thyrotropin [Units/volume] i n Serum or PlasmaOrdered By: Cedric Biggs on 07-29-2023 TSH Qn 1.66 m[IU]/L 0.45-5.33 [facility] Urea nitrogen [Mass/volume] in Serum or PlasmaOrdered By: Kori Feng on 07-29-2023 Urea nitrogen [Mass/Vol] 3 mg/dL 7-25 [facility] Vit. B12/Folate Profileon Cobalamin (Vitamin B12) [Mass/Vol] 137 pg/mL Low 180-914 [facility] Comment on above: Performed By: #### B MP, MG, CBC #### [facility] [address] Folate 11.6 ng/mL Normal >5.9 [facility] Comment on above: Result Comment: Laura te reference range: >5.9 ng/ml The WHO technical consultation on folate and vitamin b12 deficiencies has determined that folate concentrations less than 4 ng/ml are considered deficient. Performed By: #### B MP, MG, CBC #### [facility] [address] Vitamin B12 ser/plasOrdered By: Cedric Biggs on 07-29-2023 Cobalamin (Vitamin B12) [Mass/Vol] 137 pg/mL 180-914 [facility] WBC Auto (Bld) [#/Vol]Ordere d By: Kori Feng on 07-29-2023 WBC (Bld) [#/Vol] 7.2 10*3/uL 3.8-11.6 [facility] Basic Metabolic Panelon Anion gap [Moles/Vol] 10.8 mmol/L Normal 6.0-15.0 Th e [facility] Comment on above: Performed By: #### M G, CBC, BMP #### [facility] [address] [place] [address] [place] Calcium [Mass/Vol] 8.7 mg/dL Normal 8.6-10.3 [facility] Comment on above: Performed By: #### M G, CBC, BMP #### [facility] [address] [place] [id number] [place] Chloride [Moles/Vol] 105 mmol/L Normal 98-107 [facility] Comment on above: Performed By: #### M G, CBC, BMP #### [facility] [address] [place] [id number] [place] CO2 [Moles/Vol] 23.0 mmol/L Normal 21.0-31.0 [facility] Comment on above: Performed By: #### M G, CBC, BMP #### [facility] [address] [place] [address] [place] Creatinine [Mass/Vol] 0.57 mg/dL Low 0.60-1.20 [facility] Comment on above: Performed By: #### M G, CBC, BMP #### [facility] [address] [place] [address] [place] Creatinine Clr Calc Pharmacy 128.11 Normal [facility] Comment on above: Performed By: #### M G, CBC, BMP #### [facility] [address] [place] [address] [place] GFR/1.73 sq M.predicted MDRD (S/P/Bld) [Vol rate/Area] mL/min/{1.73_m2} Normal [facility] Comment on above: Performed By: #### M G, CBC, BMP #### [facility] [address] [place] [address] [place] Glucose [Mass/Vol] 132 mg/dL High 70-100 [facility] Comment on above: Result Comment: [place] Glucose Reference Range is dependent on time and content of last meal. Glucose of more than 200 mg/dL in a nonstressed, ambulatory subject supports the diagnosis of Diabetes Mellitus. ADA recommended reference range Performed By: #### M G, CBC, BMP #### [facility] [address] Potassium [Moles/Vol] 4.8 mmol/L Significan t change down 3.5-5.1 [facility] Comment on above: Performed By: #### M G, CBC, BMP #### [facility] [address] [place] [address] [place] Sodium [Moles/Vol] 134 mmol/L Low 136-145 [facility] Comment on above: Performed By: #### M G, CBC, BMP #### [facility] [address] Urea nitrogen [Mass/Vol] 8 mg/dL Normal 7-25 [facility] Comment on above: Performed By: #### M G, CBC, BMP #### [place] [id number] [facility] CT cervical spine wo conon 0 07-28-2023 CT cervical spine wo con [facility] [place] [address] [place] [address] CT Scan Report Signed Patient: Christina Wallace MR#: [id number] 85 : 1995 Acct:[id number] Age/Sex: 28 / F ADM Date: 07/27/23 Loc: Room: [address] [place] [address] Type: ADM IN Attending Dr: Cedric Biggs MD Copies to: Cedric Biggs MD Ordering Provider: Cedric Biggs MD Date of Service: 07/28/23 CT/CT cervical spine wo con: fall neck pain CT CERVICAL SPINE WITHOUT CONTRAST WITH 3D RECONSTRUCTIONS: CLINICAL HISTORY: Fall. Neck pain. COMPARISON: None TECHNIQUE: Spiral axial unenhanced images were obtained through the cervical spine. Sagittal, coronal and 3D volume-rendered reconstructions were also reviewed. This CT exam was performed using one or more following dose reduction techniques: Automated exposure control, adjustment of the mA and/or kV according to patient size, or use of iterative reconstruction technique. FINDINGS: No acute fracture. Vertebral body and disc space heights appear maintained. Facet joints are grossly unremarkable. No prevertebral soft tissue swelling. Visualized lung apices are clear. Ethmoid sinus disease. CT/CT cervical spine wo con IMPRESSION: NO CERVICAL SPINE FRACTURE Impression dictated by: Jarett Roach Jr., D.OAntonieta07/28/2023 3:16 PM Dictation Location: [place] [address] Transcribed By: [facility] 07/28/23 1516 Dictated By: Jarett Roach Jr, DO 07/28/23 1513 Signed By: 07/28/23 1516 Normal [facility] Complete Blood Count Auto Di ffon 07-28-2023 Basophils (Bld) [#/Vol] 0.0 10*3/uL Normal 0.0-0.2 [facility] Comment on above: Result Comment: PERF ORMED BY: [place] [address] PATHOLOGIST [employer]ORD[employer] COUNSELOR SANDIE MAYES M.D. Performed By: #### M G, CBC, BMP #### [facility] [address] [place] [address] [place] Basophils/100 WBC (Bld) 0.4 % Normal . [facility] Comment on above: Performed By: #### M G, CBC, BMP #### [facility] [address] [place] [address] [place] Eosinophils (Bld) [#/Vol] 0.0 10*3/uL Normal 0.0-0.45 [facility] Comment on above: Performed By: #### M G, CBC, BMP #### [facility] [address] [place] [address] [place] Eosinophils/100 WBC (Bld) 0.2 % Normal . [facility] Comment on above: Performed By: #### M G, CBC, BMP #### [facility] [address] Erythrocyte distribution width (RBC) [Ratio] 13.7 % Normal 11.9-15.3 [facility] Comment on above: Performed By: #### M G, CBC, BMP #### [facility] [address] [place] [address] [place] Hematocrit (Bld) [Volume fraction] 39.8 % Normal 34.0-46.4 [facility] Comment on above: Performed By: #### M G, CBC, BMP #### [facility] [address] [place] [address] [place] Hemoglobin (Bld) [Mass/Vol] 13.7 g/dL Normal 11.8-15.4 [facility] Comment on above: Performed By: #### M G, CBC, BMP #### [facility] [address] [place] [address] [place] Lymphocytes (Bld) [#/Vol] 0.5 10*3/uL Low 1.00-4.8 [facility] Comment on above: Performed By: #### M G, CBC, BMP #### [facility] [address] [place] [address] [place] Lymphocytes/100 WBC (Bld) 7.4 % Normal . [facility] Comment on above: Performed By: #### M G, CBC, BMP #### [address] MCH (RBC) [Entitic mass] 34.4 pg High 24.7-34.3 [facility] Comment on above: Performed By: #### M G, CBC, BMP #### [address] MCV (RBC) [Entitic vol] 100.1 fL High 80-100 [facility] Comment on above: Performed By: #### M G, CBC, BMP #### [address] Mean Corpuscular HGB Conc 34.4 g/dL Normal 32.0-35.0 [facility] Comment on above: Performed By: #### M G, CBC, BMP #### [address] Monocytes (Bld) [#/Vol] 0.1 10*3/uL Normal 0.0-0.8 [facility] Comment on above: Performed By: #### M G, CBC, BMP #### [address] Monocytes/100 WBC (Bld) 2.1 % Normal . [facility] Comment on above: Performed By: #### M G, CBC, BMP #### [address] Neutrophils (Bld) [#/Vol] 5.7 10*3/uL Normal 1.8-7.7 [facility] Comment on above: Performed By: #### M G, CBC, BMP #### [address] Neutrophils/100 WBC (Bld) 89.9 % Normal . [facility] Comment on above: Performed By: #### M G, CBC, BMP #### [address] NRBC% 0.1 /100{WBC} Normal 0-0.5 [facility] Comment on above: Performed By: #### M G, CBC, BMP #### [facility] [address] [place] [address] Platelet mean volume (Bld) [Entitic vol] 7.6 fL Normal 6.3-10.7 [facility] Comment on above: Performed By: #### M G, CBC, BMP #### [facility] [address] [place] [address] Platelets (Bld) [#/Vol] 105 10*3/uL Low 150-450 [facility] Comment on above: Performed By: #### M G, CBC, BMP #### [address] RBC (Bld) [#/Vol] 3.98 10*6/uL Normal 3.60-5.00 [facility] Comment on above: Performed By: #### M G, CBC, BMP #### [address] WBC (Bld) [#/Vol] 6.4 10*3/uL Normal 3.8-11.6 [facility] Comment on above: Performed By: #### M G, CBC, BMP #### [address] Magnesiumon 07-28-2023 Magnesium [Mass/Vol] 2.2 mg/dL Normal 1.9-2.7 [facility] Comment on above: Result Comment: PERF ORMED BY: [place] [address] PATHOLOGIST [employer]ORD[employer] COUNSELOR SANDIE MAYES M.D. Performed By: #### M G, CBC, BMP #### [address] Magnesium [Mass/volume] in S isidro or PlasmaOrdered By: Kori Feng on 07-28-2023 Magnesium [Mass/Vol] 2.2 mg/dL 1.9-2.7 [facility] Troponin I High Sensitivityo n 07-28-2023 Troponin I High Sensitivity 9.6 pg/mL Normal 0.0-15.0 [facility] Comment on above: Result Comment: PERF ORMED BY: [place] [address] PATHOLOGIST [employer]ORD[employer] COUNSELOR SANDIE MAYES M.D. Performed By: #### B MP, MG, CBC #### [facility] [address] Troponin I.cardiac [Mass/vol ume] in Serum or Plasma by Detection limit <= 0.01 ng/Ordered By: Heriberto Shin on 07-28-2023 Troponin I.cardiac DL <= 0.01 ng/mL [Mass/Vol] 9.6 pg/mL 0.0-15.0 [facility] Automated erythrocytes count in urine sediment (number/area)Ordered By: Mireille Ley on 07-27-2023 RBC Auto (Urine sed) [#/Area] 5-9 [HPF] 0-4 [facility] Automated leukocytes count i n urine sediment (number/area)Ordered By: Mireille Ley on 07-27-2023 WBC Auto (Urine sed) [#/Area] 5-9 [HPF] 0-4 [facility] Basic Metabolic Panelon Anion gap [Moles/Vol] 15.4 mmol/L High 6.0-15.0 Th e [facility] Comment on above: Performed By: #### B MP, MG, CBC #### [facility] [address] [place] [address] [place] Calcium [Mass/Vol] 9.5 mg/dL Normal 8.6-10.3 [facility] Comment on above: Performed By: #### B MP, MG, CBC #### [facility] [address] [place] [address] [place] Chloride [Moles/Vol] 98 mmol/L Normal 98-107 [facility] Comment on above: Performed By: #### B MP, MG, CBC #### [facility] [address] [place] [address] [place] CO2 [Moles/Vol] 25.4 mmol/L Normal 21.0-31.0 [facility] Comment on above: Performed By: #### B MP, MG, CBC #### [facility] [address] Creatinine [Mass/Vol] 0.63 mg/dL Normal 0.60-1.20 [facility] Comment on above: Performed By: #### B MP, MG, CBC #### [facility] [address] [place] [address] [place] Creatinine Clr Calc Pharmacy 115.14 Normal [facility] Comment on above: Result Comment: PERF ORMED BY: [place] [address] PATHOLOGIST [employer]ORD[employer] COUNSELOR SANDIE MAYES M.D. Performed By: #### B MP, MG, CBC #### [facility] [address] [place] [address] [place] GFR/1.73 sq M.predicted MDRD (S/P/Bld) [Vol rate/Area] mL/min/{1.73_m2} Normal [facility] Comment on above: Performed By: #### B MP, MG, CBC #### [facility] [address] Glucose [Mass/Vol] 89 mg/dL Normal 70-100 [facility] Comment on above: Result Comment: [facility] Glucose Reference Range is dependent on time and content of last meal. Glucose of more than 200 mg/dL in a nonstressed, ambulatory subject supports the diagnosis of Diabetes Mellitus. ADA recommended reference range Performed By: #### B MP, MG, CBC #### [facility] [address] Potassium [Moles/Vol] 2.8 mmol/L Off scale low 3.5-5.1 [facility] Comment on above: Result Comment: Crit ical Result Called to and read back by: JUAN GRAJEDA at: 07/27/2023 18:12:17 by:[id number] Performed By: #### B MP, MG, CBC #### [facility] [address] [place] [address] [place] Sodium [Moles/Vol] 136 mmol/L Normal 136-145 [facility] Comment on above: Performed By: #### B MP, MG, CBC #### [facility] [address] Urea nitrogen [Mass/Vol] 12 mg/dL Normal 7-25 [facility] Comment on above: Performed By: #### B MP, MG, CBC #### [facility] [address] Bilirubin Test strip Ql (U)O rdered By: Mireille Ley on 07-27-2023 Bilirubin Ql (U) 1+ Negative [facility] CT head/brain wo conon 07-26 CT head/brain wo con [facility] [place] [address] [place] [address] CT Scan Report Signed Patient: Christina Wallace MR#: [id number] 85 : 1995 Acct:[id number] Age/Sex: 28 / F ADM Date: 07/27/23 Loc: ER Room: Type: [facility] ER Attending Dr: Copies to: Mireille Ley APRN Ordering Provider: Mireille Ley APRN Date of Service: 07/27/23 CT/CT head/brain wo con: injury Unenhanced head CT TECHNIQUE: Contiguous axial imaging of the head. The CT exam was performed using one or more the following dose reduction techniques: Automated exposure control, adjustment of the MA and/or Kv according to patient size, or use of the iterative reconstruction technique. COMPARISON: None HISTORY: Headache. Dizziness. VENTRICLES: Within normal limits ATROPHY: None BRAIN PARENCHYMA: Adequate amaro-white matter differentiation identified. HEMORRHAGE: None HERNIATION: No mass effect or herniation INFARCTION: No recent vascular distribution infarction is seen. EXTRA-AXIAL FLUID COLLECTIONS None MIDBRAIN: Unremarkable BRENDA: Unremarkable MEDULLA: Unremarkable SINUSES: Unremarkable ORBITS: Grossly unremarkable MASTOIDS: Unremarkable BONY STRUCTURES Intact ADDITIONAL FINDINGS: CT/CT head/brain wo con IMPRESSION: No acute findings. Impression dictated by: Adair Rodríguez M.D.07/27/2023 6:58 PM Dictation Location: [place] [address] Transcribed By: SUSY 07/27/231857 Dictated By: Adair Rodríguez DO 07/27/231855 Signed By: 07/27/231857 Normal [facility] Color Auto (U)Ordered By: Makayla Ley on 07-27-2023 Color (U) Dark yellow Yellow [facility] Complete Blood Count Auto Di ffon 07-27-2023 Basophils (Bld) [#/Vol] 0.0 10*3/uL Normal 0.0-0.2 [facility] Comment on above: Result Comment: PERF ORMED BY: [place] [address] PATHOLOGIST [employer] COUNSELOR SANDIE MAYES M.D. Performed By: #### B MP, MG, CBC #### [address] Basophils/100 WBC (Bld) 0.3 % Normal . [facility] Comment on above: Performed By: #### B MP, MG, CBC #### [address] Eosinophils (Bld) [#/Vol] 0.2 10*3/uL Normal 0.0-0.45 [facility] Comment on above: Performed By: #### B MP, MG, CBC #### [address] Eosinophils/100 WBC (Bld) 1.8 % Normal . [facility] Comment on above: Performed By: #### B MP, MG, CBC #### [address] Erythrocyte distribution width (RBC) [Ratio] 13.6 % Normal 11.9-15.3 [facility] Comment on above: Performed By: #### B MP, MG, CBC #### [address] Hematocrit (Bld) [Volume fraction] 44.4 % Normal 34.0-46.4 [facility] Comment on above: Performed By: #### B MP, MG, CBC #### [place] [id number] [place] Hemoglobin (Bld) [Mass/Vol] 15.0 g/dL Normal 11.8-15.4 [facility] Comment on above: Performed By: #### B MP, MG, CBC #### [address] Lymphocytes (Bld) [#/Vol] 1.4 10*3/uL Normal 1.00-4.8 [facility] Comment on above: Performed By: #### B MP, MG, CBC #### [address] Lymphocytes/100 WBC (Bld) 16.5 % Normal . [facility] Comment on above: Performed By: #### B MP, MG, CBC #### [address] MCH (RBC) [Entitic mass] 33.6 pg Normal 24.7-34.3 [facility] Comment on above: Performed By: #### B MP, MG, CBC #### [address] MCV (RBC) [Entitic vol] 99.7 fL Normal 80-100 [facility] Comment on above: Performed By: #### B MP, MG, CBC #### [address] Mean Corpuscular HGB Conc 33.7 g/dL Normal 32.0-35.0 [facility] Comment on above: Performed By: #### B MP, MG, CBC #### [place] [address] [place] Monocytes (Bld) [#/Vol] 0.4 10*3/uL Normal 0.0-0.8 [facility] Comment on above: Performed By: #### B MP, MG, CBC #### [address] Monocytes/100 WBC (Bld) 21.67 % High 0.00-20.00 [facility] Comment on above: Result Comment: For adults in ED, MDW > 20.0 may be associated with a higher risk of sepsis during the first 12 hrs of hospital admission Performed By: #### B MP, MG, CBC #### [facility] [address] Monocytes/100 WBC (Bld) 4.5 % Normal . [facility] Comment on above: Performed By: #### B MP, MG, CBC #### [facility] [address] [place] [address] [place] Neutrophils (Bld) [#/Vol] 6.7 10*3/uL Normal 1.8-7.7 [facility] Comment on above: Performed By: #### B MP, MG, CBC #### [facility] [address] Neutrophils/100 WBC (Bld) 76.9 % Normal . [facility] Comment on above: Performed By: #### B MP, MG, CBC #### [facility] [address] NRBC% 0.0 /100{WBC} Normal 0-0.5 [facility] Comment on above: Performed By: #### B MP, MG, CBC #### [facility] [address] [place] [address] [place] Platelet mean volume (Bld) [Entitic vol] 7.4 fL Normal 6.3-10.7 The [facility] Comment on above: Performed By: #### B MP, MG, CBC #### [facility] [address] [place] [address] [place] Platelets (Bld) [#/Vol] 109 10*3/uL Low 150-450 [facility] Comment on above: Performed By: #### B MP, MG, CBC #### [facility] [address] [place] [address] [place] RBC (Bld) [#/Vol] 4.45 10*6/uL Normal 3.60-5.00 [facility] Comment on above: Performed By: #### B MP, MG, CBC #### [facility] [address] [place] [address] [place] WBC (Bld) [#/Vol] 8.7 10*3/uL Normal 3.8-11.6 [facility] Comment on above: Performed By: #### B MP, MG, CBC #### [facility] [address] [place] [address] [place] Dipstick and Microscopicon 0 07-27-2023 Appearance (U) Clear Normal Clear [facility] Comment on above: Order Comment: Name Collection Type:: Clean-Voided Midstream Performed By: #### M G, CBC, BMP #### [place] [address] [place] Bacteria,Urine None Seen Normal None Seen [facility] Comment on above: Order Comment: Name Collection Type:: Clean-Voided Midstream Performed By: #### M G, CBC, BMP #### [facility] [address] [place] [address] [place] Bilirubin,Urine 1+ High Negative [facility] Comment on above: Order Comment: Name Collection Type:: Clean-Voided Midstream Performed By: #### M G, CBC, BMP #### [place] [address] [place] Color (U) Dark Yellow Critically abnormal Yellow [facility] Comment on above: Order Comment: Name Collection Type:: Clean-Voided Midstream Performed By: #### M G, CBC, BMP #### [facility] [address] [place] [address] [place] Glucose Ql (U) Normal Normal Normal [facility] Comment on above: Order Comment: Name Collection Type:: Clean-Voided Midstream Performed By: #### M G, CBC, BMP #### [facility] [address] [place] [address] [place] Hyaline Casts,Urine 0-8 Normal 0-8 [facility] Comment on above: Order Comment: Name Collection Type:: Clean-Voided Midstream Performed By: #### M G, CBC, BMP #### [facility] [address] [place], [place] [address] [place] Ketones Ql (U) Trace High Negative [facility] Comment on above: Order Comment: Name Collection Type:: Clean-Voided Midstream Performed By: #### M G, CBC, BMP #### [facility] [address] [place] [address] Leukocyte esterase Test strip Ql (U) 2+ High Negative [facility] Comment on above: Order Comment: Name Collection Type:: Clean-Voided Midstream Performed By: #### M G, CBC, BMP #### [place] [address] [place] Nitrite,Urine Negative Normal Negative [facility] Comment on above: Order Comment: Name Collection Type:: Clean-Voided Midstream Performed By: #### M G, CBC, BMP #### [place] [address] [place] Occult Blood,Urine Negative Normal Negative [facility] Comment on above: Order Comment: Name Collection Type:: Clean-Voided Midstream Performed By: #### M G, CBC, BMP #### [address] pH (U) 6.0 [pH] Normal 5.0-9.0 [facility] Comment on above: Order Comment: Name Collection Type:: Clean-Voided Midstream Performed By: #### M G, CBC, BMP #### [place] [address] [place] Protein (U) [Mass/Vol] 30 mg/dL High Negative [facility] Comment on above: Order Comment: Name Collection Type:: Clean-Voided Midstream Performed By: #### M G, CBC, BMP #### [facility] [address] [place] [address] [place] RBC,Urine 5-9 High 0-4 [facility] Comment on above: Order Comment: Name Collection Type:: Clean-Voided Midstream Performed By: #### M G, CBC, BMP #### [place] [address] [place] Specificy Bridger,Urine 1.026 Normal 1.001-1.03 0 [facility] Comment on above: Order Comment: Name Collection Type:: Clean-Voided Midstream Performed By: #### M G, CBC, BMP #### [facility] [address] Squamous Epithelial Cell,Urine 1-2 Normal 0-2 [facility] Comment on above: Order Comment: Name Collection Type:: Clean-Voided Midstream Performed By: #### M G, CBC, BMP #### [facility] [address] Urobilinogen,Urine Normal Normal Normal [facility] Comment on above: Order Comment: Name Collection Type:: Clean-Voided Midstream Performed By: #### M G, CBC, BMP #### [facility] [address] [place] [id number] [facility] WBC,Urine 5-9 High 0-4 [facility] Comment on above: Order Comment: Name Collection Type:: Clean-Voided Midstream Performed By: #### M G, CBC, BMP #### [facility] [address] [place] [id number] [facility] ECG 12 lead ECGon 07-27-2023 ECG 12 lead ECG [facility] [place] [address] [place] [address] Electrocardiograph Report Signed Patient: Christina Wallace MR#: [id number] : 1995 Acct:[id number] Age/Sex: 28 / F ADM Date: 07/27/23 Loc: Room: [address] [place] [address] Type: ADM IN Attending Dr: Heriberto Shin DO Ordering Provider: Mireille Ley APRN Date of Service: 07/27/2311/13/1629 ECG/ECG 12 lead ECG: Syncope Copies to: Test Reason : Blood Pressure : / mmHG Vent. Rate : 097 BPM Atrial Rate : 097 BPM P-R Int : 120 ms QRS Dur : 080 ms QT Int : 362 ms P-R-T Axes : 053 085 059 degrees QTc Int : 459 ms Normal sinus rhythm w pvcs Confirmed by Demetrio GEORGE DO ([id number]) on 07/28/2023 1:58:14 AM Referred By: Electronically Signed By:Demetrio GEORGE DO Transcribed By: MUS Signed By Demetrio George, 0 07/28/23 0158 Normal [facility] HCG ( test) IA.wilii d Ql (U)Ordered By: PROVIDER TEMP on 07-27-2023 HCG ( test) Ql (U) Negative [facility] HCG,Urineon 07-27-2023 Beta HCG ( test) Ql (U) Negative Normal [facility] Comment on above: Order Comment: Name Collection Type:: Clean-Voided Midstream Result Comment: PERF ORMED BY: [place] [address] PATHOLOGIST [employer] COUNSELOR SANDIE MAYES M.D. Performed By: #### M G, CBC, BMP #### [facility] [address] [place], [place] [address] [facility] Ketones Auto test strip (U) [Mass/Vol]Ordered By: Mireille Ley on 07-27-2023 Ketones (U) [Mass/Vol] Trace Negative [facility] - UrinalysisOrder ed By: Mireille Ley on 07-27-2023 Hyaline casts LM Ql (Urine sed) 0-8 [LPF] 0-8 [facility] Magnesiumon 07-27-2023 Magnesium [Mass/Vol] 1.6 mg/dL Low 1.9-2.7 [facility] Comment on above: Result Comment: PERF ORMED BY: [place] [address] PATHOLOGIST [employer] COUNSELOR SANDIE MAYES M.D. Performed By: #### B MP, MG, CBC #### [facility] [address] [place], [place] [address] [place] Monocyte distribution width [Entitic volume] in Blood by AutomatedOrdered By: PROVIDER TEMP on 07-27-2023 Monocyte distribution width Auto (Bld) [Entitic vol] 21.67 % 0.00-20.00 [facility] Comment on above: For adults in ED, MD W > 20.0 may be associated with a higher risk of sepsis during the first 12 hrs of hospital admission Nitrite Test strip Ql (U)Ord ered By: Mireille Ley on 07-27-2023 Nitrite Ql (U) Negative Negative [facility] Protein Auto test strip (U) [Mass/Vol]Ordered By: Mireille Ley on 07-27-2023 Protein (U) [Mass/Vol] 30 mg/dL [facility] Specific gravity Auto test s trip (U) [Rel density]Ordered By: Mireille Ley on 07-27-2023 Specific gravity (U) [Rel density] 1.026 1.001-1.03 0 [facility] Squamous epithelial cells de tection in urine sediment by light microscopyOrdered By: Mireille Ley on 07-27-2023 Epithelial cells.squamous LM Ql (Urine sed) 1-2 [HPF] 0-2 [facility] Troponin I High Sensitivityo n 07-27-2023 Troponin I High Sensitivity 29.9 pg/mL High 0.0-15.0 [facility] Comment on above: Result Comment: PERF ORMED BY: [place] [address] PATHOLOGIST [employer] COUNSELOR SANDIE MAYES M.D. Performed By: #### M G, CBC, BMP #### [address] Troponin I High Sensitivity 34.4 pg/mL High 0.0-15.0 [facility] Comment on above: Result Comment: PERF ORMED BY: [place] [address] PATHOLOGIST [employer] COUNSELOR SANDIE MAYES M.D. Performed By: #### M G, CBC, BMP #### [facility] [address] [place] [address] [place] Urine Cultureon 07-27-2023 Bacteria identified Cx Nom (U) 30,000 colonies/ml mixed bacterial skin contaminants 2 Days PERFORMED BY: [place] [address] PATHOLOGIST [employer] COUNSELOR SANDIE Rodriguez [facility] Comment on above: Performed By: #### M G, CBC, BMP #### [facility] [address] [place] [address] [facility] Urine bacteria detection by automated methodOrdered By: Mireille Ley on 07-27-2023 Bacteria Auto Ql (U) None seen None Seen [facility] Urine clarity by refractomet ry automatedOrdered By: Mireille Ley on 07-27-2023 Clarity Refractometry automated (U) Clear Clear [facility] Urine culture routineOrdered By: Mireille Ley on 07-27-2023 Bacteria identified Cx Nom (U) 2 Days [facility] Urine glucose measurement by automated test strip (mass/volume)Ordered By: Mireille Ley on 07-27-2023 Glucose Auto test strip (U) [Mass/Vol] Normal mg/dL Normal [facility] Urine hemoglobin detection b y automated test stripOrdered By: Mireille Ley on 07-27-2023 Hemoglobin Auto test strip Ql (U) Negative Negative [facility] Urine leukocyte esterase det ection by automated test stripOrdered By: Mireille Ley on 07-27-2023 Leukocyte esterase Auto test strip Ql (U) 2+ Negative [facility] Urobilinogen Auto test strip (U) [Mass/Vol]Ordered By: Mireille Ley on 07-27-2023 Urobilinogen (U) [Mass/Vol] Normal mg/dL Normal [facility] pH Auto test strip (U)Ordere d By: Mireille Ley on 07-27-2023 pH (U) 6.0 [pH] 5.0-9.0 [facility] CBC AND AUTO DIFFon 06-19-19 24 ABSOLUTE BASOPHIL 0.0 X10E9/L Normal 0.0-0.2 [facility] Comment on above: Performed By: #### C BCA, CMP, 3039-3, 89595-3 #### [facility] ([id number]) [address] [facility] [place] [address] ABSOLUTE NEUTROPHIL 4.1 X10E9/L Normal 1.5-6.[address] [facility] Comment on above: Performed By: #### C BCA, CMP, 3039-3, #### [facility] ([id number]) [address] [place] [address] Basophils/100 WBC (Bld) 0.2 % Normal [facility] Comment on above: Performed By: #### C BROCK, CMP, 3, #### [facility] ([id number]) [address] [place] [address] 25072 Eosinophils (Bld) [#/Vol] 0.0 10*3/uL Normal 0.0-0.4 [facility] Comment on above: Performed By: #### C BROCK, CMP, 3039-07, #### [facility] ([id number]) [address] [place] [address] 81924 Eosinophils/100 WBC (Bld) 0.0 % Normal [facility] Comment on above: Performed By: #### C BROCK, CMP, 3039-07, #### [facility] ([id number]) [address] [place] [address]605 Erythrocyte distribution width (RBC) [Ratio] 13.4 % Normal 11.5-15.0 [facility] Comment on above: Performed By: #### Treasure GUTIÉRREZ, CMP, 3039-07, #### [facility] ([id number]) [address] [place] [address]254 Hematocrit (Bld) [Volume fraction] 40.8 % Normal 35-47 [facility] Comment on above: Performed By: #### C BCA, CMP, 3039-07, #### [facility] ([id number]) [address] [place] [address] 40707 Hemoglobin (Bld) [Mass/Vol] 13.7 g/dL Normal 11.7-15.5 [facility] Comment on above: Performed By: #### Treasure BCA, CMP, 3039-07, #### [facility] ([id number]) [address] [place] [address] 87966 Lymphocytes (Bld) [#/Vol] 0.6 10*3/uL Low 1.0-3.5 [facility] Comment on above: Performed By: #### Treasure GUTIÉRREZ CMP, 3039-07, #### [facility] ([id number]) [address] [place] [address] 91915 Lymphocytes/100 WBC (Bld) 12.5 % Normal [facility] Comment on above: Performed By: #### Treasure GUTIÉRREZ CMP, 3039-07, #### [facility] ([id number]) [address] [place] [address] 78464 MCH (RBC) [Entitic mass] 34.5 pg High 27-34 [facility] Comment on above: Performed By: #### Treasure GUTIÉRREZ CMP, 3039-07, #### [facility] ([id number]) [address] [place] [address] 49227 MCHC (RBC) [Mass/Vol] 33.7 g/dL Normal 32-36 [facility] Comment on above: Performed By: #### Treasure GUTIÉRREZ CMP, 3039-07, #### [facility] ([id number]) [address] [place] [address] 36345 MCV (RBC) [Entitic vol] 102 fL High 80-100 [facility] Comment on above: Performed By: #### Treasure GUTIÉRREZ CMP, 3039-07, #### [facility] ([id number]) [address] [place] [address] 57445 Monocytes (Bld) [#/Vol] 0.1 10*3/uL Normal 0-0.9 [facility] Comment on above: Performed By: #### Treasure GUTIÉRREZ CMP, 3039-07, #### [facility] ([id number]) [address] [place] [address] 13522 Monocytes/100 WBC (Bld) 3.0 % Normal [facility] Comment on above: Performed By: #### C BCA, CMP, 3039-07, #### [facility] ([id number]) [address] [place] [address] 39223 Neutrophils/100 WBC (Bld) 84.3 % Normal [facility] Comment on above: Performed By: #### C BCA, CMP, 3039-07, #### [facility] ([id number]) [address] [place] [address] 58504 Platelet mean volume (Bld) [Entitic vol] 7.1 fL Normal 7-12 [facility] Comment on above: Performed By: #### C BCA, CMP, 3039-07, #### [facility] ([id number]) [address] [place] [address] 53334 Platelets (Bld) [#/Vol] 321 10*3/uL Normal 150-450 [facility] Comment on above: Performed By: #### C BCA, CMP, 3039-07, #### [facility] ([id number]) [address] [place] [address] 65487 RBC COUNT 3.99 X10E12/L Normal 3.80-5.20 [facility] Comment on above: Performed By: #### C BCA, CMP, 3039-07, #### [facility] ([id number]) [address] [place] [address] 64171 WBC (Bld) [#/Vol] 4.9 10*3/uL Normal 4.0-11.0 [facility] Comment on above: Performed By: #### C BCA, CMP, 3039-07, #### [facility] ([id number]) [address] [place] [address] 91556 COMPREHENSIVE METABOLIC PANE Sourav 06-19-2023 Albumin [Mass/Vol] 4.2 g/dL Normal 3.2-5.3 [facility] Comment on above: Performed By: #### C BCA, CMP, 3039-07, #### [facility] ([id number]) [address] [place] [address] 50545 ALP [Catalytic activity/Vol] 55 U/L Normal 39-130 [facility] Comment on above: Performed By: #### C BCA, CMP, 3039-07, #### [facility] ([id number]) [address] [place] [address] 43389 ALT [Catalytic activity/Vol] 52 U/L High 0-31 [facility] Comment on above: Performed By: #### C BCA, CMP, 3039-07, #### [facility] ([id number]) [address] [place] [address] 64918 Anion gap [Moles/Vol] 10 mmol/L Normal 5-15 [facility] Comment on above: Performed By: #### C BCA, CMP, 3039-07, #### [facility] ([id number]) [address] [place] [address] 46320 AST [Catalytic activity/Vol] 93 U/L High 0-41 [facility] Comment on above: Performed By: #### C BCA, CMP, 3039-07, #### [facility] ([id number]) [address] [place] [address] 07352 Bilirubin [Mass/Vol] 1.3 mg/dL High 0.3-1.[address] [facility] Comment on above: Performed By: #### C BCA, CMP, 3039-07, 89923-9 #### [facility] ([id number]) [address] [place] [address] 02460 Calcium [Mass/Vol] 8.8 mg/dL Normal 8.5-10.5 [facility] Comment on above: Performed By: #### C BCA, CMP, 3, 14506-7 #### [facility] ([id number]) [address] [place] [address] 69331 Chloride [Moles/Vol] 102 mmol/L Normal 98-[address] [facility] Comment on above: Performed By: #### C BROCK, CMP, 3039-07, #### [facility] ([id number]) [address] [place] [address] 78802 CO2 [Moles/Vol] 26 mmol/L Normal 22-32 [facility] Comment on above: Performed By: #### C BROCK, CMP, 3039-07, 09713-6 #### [facility] ([id number]) [address] [place] [address] 08813 Creatinine [Mass/Vol] 0.67 mg/dL Normal 0.40-1.00 [facility] Comment on above: Result Comment: METH OD TRACEABLE TO IDMS STANDARD Performed By: #### C BROCK, CMP, 3039-07, 13528-1 #### [facility] ([id number]) [address] [place] [address] 55995 eGFR (CKD-EPI) NON-RACE DEPENDENT >90 Normal >59 [facility] Comment on above: Result Comment: Reported eGFR is based on the CKD-EPI 2020 equation that does not use a race coefficient. Performed By: #### C BCA, CMP, 3, 79359-9 #### [facility] ([id number]) [address] [place] [address] 10539 Glucose [Mass/Vol] 114 mg/dL High 65-99 [facility] Comment on above: Performed By: #### C BROCK, CMP, 3, 00852-7 #### [facility] ([id number]) [address] [place] [address] 56818 Potassium [Moles/Vol] 3.7 mmol/L Normal 3.5-5.0 [facility] Comment on above: Performed By: #### C BROCK CMP, 3, #### [facility] ([id number]) [address] [place] [address] 81715 Protein [Mass/Vol] 7.6 g/dL Normal 6.0-8.0 [facility] Comment on above: Performed By: #### C BROCK CMP, 3, #### [facility] ([id number]) [address] [place] [address] 99651 Sodium [Moles/Vol] 138 mmol/L Normal 134-146 [facility] Comment on above: Performed By: #### C BROCK, CMP, 3039-07, 27991-9 #### [facility] ([id number]) [address] [place] [address] 42003 Urea nitrogen [Mass/Vol] 13 mg/dL Normal 5-23 [facility] Comment on above: Performed By: #### C BROCK, CMP, 3, 65248-0 #### [facility] ([id number]) [address] [place] [address] 32772 HCG ( test) Ql (U)o n 06-19-2023 Beta HCG ( test) Ql (U) Negative Normal NEG [facility] Comment on above: Performed By: #### C BCA, CMP, 03, #### [facility] ([id number]) [address] [place] [address] 85731 LIPASEon 06-19-2023 Lipase [Catalytic activity/Vol] 45 U/L High 17-40 [facility] Comment on above: Performed By: #### C BCA, CMP, 3040-3, #### [facility] ([id number]) [address] [place] [address] 80695 URN MACROSCOPIC NURon 2023 BILIRUBIN AHMET Negative Normal NEG [facility] Comment on above: Performed By: #### C BCA, CMP, 3040-3, #### [facility] ([id number]) [address] [place] [address] 88343 BLOOD/HGB AHMET Trace Abnormal NEG [facility] Comment on above: Performed By: #### C BCA, CMP, 0-3, #### [facility] ([id number]) [address] [place] [address] [place] [address] GLUCOSE AHMET Negative Normal NEG [facility] Comment on above: Performed By: #### C BCA, CMP, 3, #### [facility] ([id number]) [address] [place] [address] 44950 KETONES AHMET Negative Normal NEG [facility] Comment on above: Performed By: #### C BCA, CMP, 03, #### [facility] ([id number]) [address] [place] [address] [place] [address] LEUKOCYTE ESTERASE AHMET Negative Normal NEG [facility] Comment on above: Performed By: #### C BCA, CMP, 03, #### [facility] ([id number]) [address] [place] [address] [place] [address] NITRITE AHMET Negative Normal NEG [facility] Comment on above: Performed By: #### C BCA, CMP, 3040-3, #### [facility] ([id number]) [address] [place] [address] PH AHMET 6.5 Normal 5.0-8.5 [facility] Comment on above: Performed By: #### C BROCK, CMP, 3039-3, #### [facility] ([id number]) [address] [place] [address] 21722 PROTEIN AHMET Negative Normal NEG [facility] Comment on above: Performed By: #### C BCA, CMP, 3039-3, #### [facility] ([id number]) [address] [place] [address] 10876 SPECIFIC GRAVITY AHMET 1.025 Normal 1.003-1 .03 5 [facility] Comment on above: Performed By: #### C BROCK, CMP, 3, #### [facility] ([id number]) [address] [place] [address] 51452 UROBILINOGEN AHMET 1.0 eu/dL Normal <1.1 [facility] Comment on above: Performed By: #### C BCA, CMP, 3039-07, 85721-6 #### [facility] ([id number]) [address] [place] [address] 86068 Alanine aminotransferase [En zymatic activity/volume] in Serum or PlasmaOrdered By: Heriberto Shin on 05-30-2023 ALT [Catalytic activity/Vol] 49 U/L 7-52 [facility] Albumin [Mass/volume] in Ser um or Plasma by Bromocresol green (BCG) dye binding methoOrdered By: Heriberto Shin on 05-30-2023 Albumin BCG dye [Mass/Vol] 4.2 g/dL 3.5-5.7 [facility] Alkaline phosphatase [Enzyma tic activity/volume] in Serum or PlasmaOrdered By: Heriberto Shin on 05-30-2023 ALP [Catalytic activity/Vol] 76 U/L 34-104 [facility] Aspartate aminotransferase [ Enzymatic activity/volume] in Serum or PlasmaOrdered By: Heriberto Shin on 05-30-2023 AST [Catalytic activity/Vol] 55 U/L 13-39 [facility] Basophils Auto (Bld) [#/Vol] Ordered By: Heriberto Shin on 05-30-2023 Basophils (Bld) [#/Vol] 0.0 10*3/uL 0.0-0.2 [facility] Basophils/100 WBC Auto (Bld) Ordered By: Heriberto Shin on 05-30-2023 Basophils/100 WBC (Bld) 0.2 % . [facility] Bilirubin.total [Mass/volume ] in Serum or PlasmaOrdered By: Heriberto Shin on 05-30-2023 Bilirubin [Mass/Vol] 2.4 mg/dL 0.3-1.0 [facility] Comment on above: Samples from patient s who have taken Naproxen have shown spurious elevation in Total Bilirubin levels. A metabolite of Naproxen, O-desmethylnaproxen, has been shown to interfere with the Amisha-Kristopher method for measuring Total Bilirubin. Calcium [Mass/volume] in Ser um or PlasmaOrdered By: Heriberto Shin on 05-30-2023 Calcium [Mass/Vol] 9.2 mg/dL 8.6-10.3 [facility] Carbon dioxide, total [Moles /volume] in Serum or PlasmaOrdered By: Heriberto Shin on 05-30-2023 CO2 [Moles/Vol] 28.6 mmol/L 21.0-31.0 [facility] Chloride [Moles/volume] in S isidro or PlasmaOrdered By: Heriberto Shin on 05-30-2023 Chloride [Moles/Vol] 96 mmol/L 98-107 [facility] Complete Blood Count Auto Di ffon 05-30-2023 Basophils (Bld) [#/Vol] 0.0 10*3/uL Normal 0.0-0.2 [facility] Comment on above: Result Comment: PERF ORMED BY: [facility] [address] [place] [address] PATHOLOGIST [employer]ORD[employer] COUNSELOR SANDIE MAYES M.D. Performed By: #### B MP, MG, CBC #### [facility] [address] [place] [address] [place] Basophils/100 WBC (Bld) 0.2 % Normal . [facility] Comment on above: Performed By: #### B MP, MG, CBC #### [facility] [address] Eosinophils (Bld) [#/Vol] 0.0 10*3/uL Normal 0.0-0.45 [facility] Comment on above: Performed By: #### B MP, MG, CBC #### [address] Eosinophils/100 WBC (Bld) 0.0 % Normal . [facility] Comment on above: Performed By: #### B MP, MG, CBC #### [address] Erythrocyte distribution width (RBC) [Ratio] 13.2 % Normal 11.9-15.3 [facility] Comment on above: Performed By: #### B MP, MG, CBC #### [address] Hematocrit (Bld) [Volume fraction] 45.0 % Normal 34.0-46.4 [facility] Comment on above: Performed By: #### B MP, MG, CBC #### [place] [address] [place] Hemoglobin (Bld) [Mass/Vol] 15.4 g/dL Normal 11.8-15.4 [facility] Comment on above: Performed By: #### B MP, MG, CBC #### [place] [address] [place] Lymphocytes (Bld) [#/Vol] 0.8 10*3/uL Low 1.00-4.8 [facility] Comment on above: Performed By: #### B MP, MG, CBC #### [place] [address] [place] Lymphocytes/100 WBC (Bld) 7.0 % Normal . [facility] Comment on above: Performed By: #### B MP, MG, CBC #### [address] MCH (RBC) [Entitic mass] 34.7 pg High 24.7-34.3 [facility] Comment on above: Performed By: #### B MP, MG, CBC #### [address] MCV (RBC) [Entitic vol] 101.5 fL High 80-100 [facility] Comment on above: Performed By: #### B MP, MG, CBC #### [address] Mean Corpuscular HGB Conc 34.2 g/dL Normal 32.0-35.0 [facility] Comment on above: Performed By: #### B MP, MG, CBC #### [address] Monocytes (Bld) [#/Vol] 0.5 10*3/uL Normal 0.0-0.8 [facility] Comment on above: Performed By: #### B MP, MG, CBC #### [address] Monocytes/100 WBC (Bld) 4.7 % Normal . [facility] Comment on above: Performed By: #### B MP, MG, CBC #### [address] Neutrophils (Bld) [#/Vol] 9.7 10*3/uL High 1.8-7.7 [facility] Comment on above: Performed By: #### B MP, MG, CBC #### [address] Neutrophils/100 WBC (Bld) 88.1 % Normal . [facility] Comment on above: Performed By: #### B MP, MG, CBC #### [address] NRBC% 0.1 /100{WBC} Normal 0-0.5 [facility] Comment on above: Performed By: #### B MP, MG, CBC #### [address] Platelet mean volume (Bld) [Entitic vol] 7.9 fL Normal 6.3-10.7 [facility] Comment on above: Performed By: #### B MP, MG, CBC #### [address] Platelets (Bld) [#/Vol] 315 10*3/uL Normal 150-450 [facility] Comment on above: Performed By: #### B MP, MG, CBC #### [address] RBC (Bld) [#/Vol] 4.44 10*6/uL Normal 3.60-5.00 [facility] Comment on above: Performed By: #### B MP, MG, CBC #### [address] WBC (Bld) [#/Vol] 11.0 10*3/uL Normal 3.8-11.6 [facility] Comment on above: Performed By: #### B MP, MG, CBC #### [address] Comprehensive Metabolic Pane sourav 05-30-2023 Albumin [Mass/Vol] 4.2 g/dL Normal 3.5-5.7 [facility] Comment on above: Performed By: #### B MP, MG, CBC #### [address] Albumin/Globulin [Mass ratio] 1.4 {ratio} Normal [facility] Comment on above: Performed By: #### B MP, MG, CBC #### [address] ALP [Catalytic activity/Vol] 76 U/L Normal 34-104 [facility] Comment on above: Performed By: #### B MP, MG, CBC #### [address] ALT [Catalytic activity/Vol] 49 U/L Normal 7-52 [facility] Comment on above: Performed By: #### B MP, MG, CBC #### [facility] [address] Anion gap [Moles/Vol] 14.5 mmol/L Normal 6.0-15.0 [facility] e [facility] Comment on above: Performed By: #### B MP, MG, CBC #### [facility] [address] AST [Catalytic activity/Vol] 55 U/L High 13-39 [facility] Comment on above: Performed By: #### B MP, MG, CBC #### [facility] [address] Bilirubin [Mass/Vol] 2.4 mg/dL High 0.3-1.0 [facility] Comment on above: Result Comment: Samp les from patients who have taken Naproxen have shown spurious elevation in Total Bilirubin levels. A metabolite of Naproxen, O-desmethylnaproxen, has been shown to interfere with the Jendrassik-Grof method for measuring Total Bilirubin. Performed By: #### B MP, MG, CBC #### [facility] [address] [place] [address] [place] Calcium [Mass/Vol] 9.2 mg/dL Normal 8.6-10.3 [facility] Comment on above: Performed By: #### B MP, MG, CBC #### [facility] [address] [place] [address] [place] Chloride [Moles/Vol] 96 mmol/L Low 98-107 [facility] Comment on above: Performed By: #### B MP, MG, CBC #### [facility] [address] [place] [id number] [place] CO2 [Moles/Vol] 28.6 mmol/L Normal 21.0-31.0 [facility] Comment on above: Performed By: #### B MP, MG, CBC #### [facility] [address] [place] [id number] [place] Creatinine [Mass/Vol] 0.77 mg/dL Normal 0.60-1.20 [facility] Comment on above: Performed By: #### B MP, MG, CBC #### [address] Creatinine Clr Calc Pharmacy 94.82 Normal [facility] Comment on above: Performed By: #### B MP, MG, CBC #### [place] [address] [place] GFR/1.73 sq M.predicted MDRD (S/P/Bld) [Vol rate/Area] mL/min/{1.73_m2} Normal [facility] Comment on above: Performed By: #### B MP, MG, CBC #### [address] Globulin (S) [Mass/Vol] 2.9 g/dL Normal [facility] Comment on above: Performed By: #### B MP, MG, CBC #### [address] Glucose [Mass/Vol] 90 mg/dL Normal 70-100 [facility] Comment on above: Result Comment: [facility] Glucose Reference Range is dependent on time and content of last meal. Glucose of more than 200 mg/dL in a nonstressed, ambulatory subject supports the diagnosis of Diabetes Mellitus. ADA recommended reference range Performed By: #### B MP, MG, CBC #### [address] Potassium [Moles/Vol] 4.1 mmol/L Normal 3.5-5.1 [facility] Comment on above: Performed By: #### B MP, MG, CBC #### [address] Protein [Mass/Vol] 7.1 g/dL Normal 6.4-8.9 [facility] Comment on above: Performed By: #### B MP, MG, CBC #### [address] Sodium [Moles/Vol] 135 mmol/L Low 136-145 [facility] Comment on above: Performed By: #### B MP, MG, CBC #### [facility] [address] Urea nitrogen [Mass/Vol] 8 mg/dL Normal 7-25 [facility] Comment on above: Performed By: #### B MP, MG, CBC #### [facility] [address] [place] [address] [place] Creatinine [Mass/volume] in Serum or PlasmaOrdered By: Heriberto Shin on 05-30-2023 Creatinine [Mass/Vol] 0.77 mg/dL 0.60-1.20 [facility] Eosinophils Auto (Bld) [#/Vo l]Ordered By: Heriberot Shin on 05-30-2023 Eosinophils (Bld) [#/Vol] 0.0 10*3/uL 0.0-0.45 [facility] Eosinophils/100 WBC Auto (Bl d)Ordered By: Heriberto Shin on 05-30-2023 Eosinophils/100 WBC (Bld) 0.0 % . [facility] Erythrocyte distribution wid th Auto (RBC) [Ratio]Ordered By: Heriberto Shin on 05-30-2023 Erythrocyte distribution width (RBC) [Ratio] 13.2 % 11.9-15.3 [facility] Globulin Calc (S) [Mass/Vol] Ordered By: Heriberto Shin on 05-30-2023 Globulin (S) [Mass/Vol] 2.9 g/dL [facility] Glucose [Mass/volume] in Ser um or PlasmaOrdered By: Heriberto Shin on 05-30-2023 Glucose [Mass/Vol] 90 mg/dL 70-100 [facility] Comment on above: ADA recommended refe rence rangeRandom Glucose Reference Range is dependent on time and content of last meal. Glucose of more than 200 mg/dL in a nonstressed, ambulatory subject supports the diagnosis of Diabetes Mellitus. Hematocrit Auto (Bld) [Volum e fraction]Ordered By: Heriberto Shin on 05-30-2023 Hematocrit (Bld) [Volume fraction] 45.0 % 34.0-46.4 [facility] Hemoglobin [Mass/volume] in BloodOrdered By: Heriberto Shin on 05-30-2023 Hemoglobin (Bld) [Mass/Vol] 15.4 g/dL 11.8-15.4 [facility] Sourav 05-30-2023 L ----- Specimen: [id number] Received: 05/31/23 Status: MARC Murphy Num: [id number] Spec Type: Surgical Subm Dr: Abel Downey MD Tissues: A Colon Biopsy (DUODENAL ULCER) B GASTRIC FOR HP (ANTRAL BX R/O HP) C Esophagus Biopsy (ESOPHAGITIS BX) Procedures: HE/6, Gross/Micro L4/3, H PYLORI Age/ Patient Sex Location Account Attending Physician Christina Wallace 27/F 3T [id number] Heriberto Shin, DO SPEC NUM: [id number] RECD: 05/31/23 STATUS: MARC MURPHY NUM: [id number] KATIE: 05/30/[address] [facility] [address]: Abel Downey MD ENTERED: 05/31/[address] [facility] [address]: SPEC TYPE: Surgical DEPT: S ORDERED: HE/6, Gross/Micro L4/3, H PYLORI ORDERED: HE/6, Gross/Micro L4/3, H PYLORI Pathological Diagnosis A. Duodenum, Biopsy: Chronic Duodenitis. B. Gastric Antrum, Biopsy: Mild Chronic Inactive Gastritis. - H. Pylori Immunostain Is Negative For H. Pylori Organisms. C. Esophagus, Biopsy: Acute Esophagitis. Clinical Information Nausea, vomiting, abdomen pain, rule out H. pylori Gross Description A. Received in formalin labeled with the patient's name, date of and duodenal ulcer biopsy is one avila tissue measuring 0.4 x 0.2 x 0.2 cm. Entirely submitted in one cassette labeled A1. B. Received in formalin labeled with the patient's name, date of and antral biopsy is one avila tissue measuring 0.2 cm. Entirely submitted in one cassette labeled B1. C. Received in formalin labeled with the patient's name, date of and esophagitis is one avila tissue measuring 0.1 cm. Entirely submitted in one cassette labeled C1. Specimen: [id number] Received: 05/31/23 Status: MARC Murphy Num: [id number] Spec Type: Surgical Subm Dr: Abel Downey MD Tissues: A Colon Biopsy (DUODENAL ULCER) B GASTRIC FOR HP (ANTRAL BX R/O HP) C Esophagus Biopsy (ESOPHAGITIS BX) Procedures: HE/6, Gross/Micro L4/3, H PYLORI Patient: Christina Wallace [id number] (Continued) Specimen: [id number] Received: 05/31/23 (Continued) Signed (signature on file) Rory Espinal MD 06/01/231940 Specimen: [id number] Received: 05/31/23 Status: MARC Murphy Num: [id number] Spec Type: Surgical Subm Dr: Abel Downey MD Tissues: A Colon Biopsy (DUODENAL ULCER) B GASTRIC FOR HP (ANTRAL BX R/O HP) C Esophagus Biopsy (ESOPHAGITIS BX) Procedures: , Gross/Micro L4/3, H PYLORI Patient: Christina Wallace [id number] (Continued) Specimen: [id number] Received: 05/31/23 (Continued) Microscopic Description A. Two H E slides reviewed. The microscopic examination confirms the diagnosis. B. Two H E slides reviewed. The microscopic examination confirms the diagnosis. C. Two H E slides reviewed. The microscopic examination confirms the diagnosis. CPT Codes 77082o3 Specimen: [id number] Received: 05/31/23 Status: MARC Murphy Num: [id number] Spec Type: Surgical Subm Dr: Abel Downey MD Tissues: A Colon Biopsy (DUODENAL ULCER) B GASTRIC FOR HP (ANTRAL BX R/O HP) C Esophagus Biopsy (ESOPHAGITIS BX) Procedures: HE/6, Gross/Micro L4/3, H PYLORI Patient: Christina Wallace [id number] (Continued) Signed (signature on file) Rory Espinal MD 06/01/231940 Normal [facility] Leukocytes [#/volume] correc james for nucleated erythrocytes in Blood by Automated counOrdered By: Heriberto Shin on 05-30-2023 WBC corrected for nucl RBC Auto (Bld) [#/Vol] 11.0 10*3/uL 3.8-11.6 [facility] Lymphocytes Auto (Bld) [#/Vo l]Ordered By: Heriberto Shin on 05-30-2023 Lymphocytes (Bld) [#/Vol] 0.8 10*3/uL 1.00-4.8 [facility] Lymphocytes/100 WBC Auto (Bl d)Ordered By: Heriberto Shin on 05-30-2023 Lymphocytes/100 WBC (Bld) 7.0 % . [facility] MCH Auto (RBC) [Entitic mass ]Ordered By: Heriberto Shin on 05-30-2023 MCH (RBC) [Entitic mass] 34.7 pg 24.7-34.3 [facility] MCHC Auto (RBC) [Mass/Vol]Or dered By: Heriberto Shin on 05-30-2023 MCHC (RBC) [Mass/Vol] 34.2 g/dL 32.0-35.0 [facility] MCV Auto (RBC) [Entitic vol] Ordered By: Heriberto Shin on 05-30-2023 MCV (RBC) [Entitic vol] 101.5 fL 80-100 [facility] Magnesiumon 05-30-2023 Magnesium [Mass/Vol] 2.2 mg/dL Normal 1.9-2.7 [facility] Comment on above: Result Comment: PERF ORMED BY: [place] [address] PATHOLOGIST [employer]ORD[employer] COUNSELOR SANDIE MAYES M.D. Performed By: #### B MP, MG, CBC #### [address] Magnesium [Mass/volume] in S isidro or PlasmaOrdered By: Heriberto Shin on 05-30-2023 Magnesium [Mass/Vol] 2.2 mg/dL 1.9-2.7 [facility] Monocytes Auto (Bld) [#/Vol] Ordered By: Heriberto Shin on 05-30-2023 Monocytes (Bld) [#/Vol] 0.5 10*3/uL 0.0-0.8 [facility] Monocytes/100 WBC Auto (Bld) Ordered By: Heriberto Shin on 05-30-2023 Monocytes/100 WBC (Bld) 4.7 % . [facility] Neutrophils Auto (Bld) [#/Vo l]Ordered By: Heriberto Shin on 05-30-2023 Neutrophils (Bld) [#/Vol] 9.7 10*3/uL 1.8-7.7 [facility] Neutrophils/100 WBC Auto (Bl d)Ordered By: Heriberto Shin on 05-30-2023 Neutrophils/100 WBC (Bld) 88.1 % . [facility] No Panel InformationOrdered By: Heriberto Shin on 05-30-2023 Estimated GFR (CKD-EPI) > 60.0 mL/Min [facility] Creatinine Clearance (Chem 94.82 [facility] Nucleated erythrocytes [Pres ence] in Blood by Automated countOrdered By: Heriberto Shin on 05-30-2023 Nucleated RBC Auto Ql (Bld) 0.1 /100{WBC} 0-0.5 [facility] Platelet mean volume Auto (B ld) [Entitic vol]Ordered By: Heriberto Shin on 05-30-2023 Platelet mean volume (Bld) [Entitic vol] 7.9 fL 6.3-10.7 [facility] Platelets Auto (Bld) [#/Vol] Ordered By: Heriberto Shin on 05-30-2023 Platelets (Bld) [#/Vol] 315 10*3/uL 150-450 [facility] Potassium [Moles/volume] in Serum or PlasmaOrdered By: Heriberto Shin on 05-30-2023 Potassium [Moles/Vol] 4.1 mmol/L 3.5-5.1 [facility] Protein [Mass/volume] in Ser um or PlasmaOrdered By: Heriberto Shin on 05-30-2023 Protein [Mass/Vol] 7.1 g/dL 6.4-8.9 [facility] RBC Auto (Bld) [#/Vol]Ordere d By: Heriberto Shin on 05-30-2023 RBC (Bld) [#/Vol] 4.44 10*6/uL 3.60-5.00 [facility] Serum or plasma albumin/glob ulin mass ratioOrdered By: Heriberto Shin on 05-30-2023 Albumin/Globulin [Mass ratio] 1.4 {ratio} [facility] Serum or plasma anion gap de terminationOrdered By: Heriberto Shin on 05-30-2023 Anion gap [Moles/Vol] 14.5 mmol/L 6.0-15.0 [facility] Sodium [Moles/volume] in Ser um or PlasmaOrdered By: Heriberto Shin on 05-30-2023 Sodium [Moles/Vol] 135 mmol/L 136-145 [facility] Urea nitrogen [Mass/volume] in Serum or PlasmaOrdered By: Heriberto Shin on 05-30-2023 Urea nitrogen [Mass/Vol] 8 mg/dL 7-25 [facility] WBC Auto (Bld) [#/Vol]Ordere d By: Heriberto Shin on 05-30-2023 WBC (Bld) [#/Vol] 11.0 10*3/uL 3.8-11.6 [facility] Comprehensive Metabolic Pane sourav 05-29-2023 Albumin [Mass/Vol] 3.8 g/dL Normal 3.5-5.7 [facility] Comment on above: Performed By: #### Jessy Welch, CBC, BMP #### [address] Albumin/Globulin [Mass ratio] 1.3 {ratio} Normal [facility] Comment on above: Performed By: #### Jessy Welch CBC, BMP #### [address] ALP [Catalytic activity/Vol] 71 U/L Normal 34-104 [facility] Comment on above: Performed By: #### Jessy Welch CBC, BMP #### [address] ALT [Catalytic activity/Vol] 54 U/L High 7-52 [facility] Comment on above: Performed By: #### M Rebekah CBC, BMP #### [address] Anion gap [Moles/Vol] 14.8 mmol/L Normal 6.0-15.0 Th e [facility] Comment on above: Performed By: #### Jessy Welch, CBC, BMP #### [address] AST [Catalytic activity/Vol] 80 U/L High 13-39 [facility] Comment on above: Performed By: #### M G, CBC, BMP #### [address] Bilirubin [Mass/Vol] 1.8 mg/dL High 0.3-1.0 [facility] Comment on above: Result Comment: Samp les from patients who have taken Naproxen have shown spurious elevation in Total Bilirubin levels. A metabolite of Naproxen, O-desmethylnaproxen, has been shown to interfere with the Jendrassik-Grof method for measuring Total Bilirubin. Performed By: #### M G, CBC, BMP #### [facility] [address] Calcium [Mass/Vol] 9.0 mg/dL Normal 8.6-10.3 [facility] Comment on above: Performed By: #### M G, CBC, BMP #### [place] [address] [place] Chloride [Moles/Vol] 101 mmol/L Normal 98-107 [facility] Comment on above: Performed By: #### M G, CBC, BMP #### [address] CO2 [Moles/Vol] 23.3 mmol/L Normal 21.0-31.0 [facility] Comment on above: Performed By: #### M G, CBC, BMP #### [address] Creatinine [Mass/Vol] 0.70 mg/dL Normal 0.60-1.20 [facility] Comment on above: Performed By: #### M G, CBC, BMP #### [place] [address] [place] Creatinine Clr Calc Pharmacy 105.16 Normal [facility] Comment on above: Performed By: #### M G, CBC, BMP #### [place] [address] [place] GFR/1.73 sq M.predicted MDRD (S/P/Bld) [Vol rate/Area] mL/min/{1.73_m2} Normal [facility] Comment on above: Performed By: #### M G, CBC, BMP #### [place] [address] [place] Globulin (S) [Mass/Vol] 2.9 g/dL Normal [facility] Comment on above: Performed By: #### M G, CBC, BMP #### [place] [address] [place] Glucose [Mass/Vol] 91 mg/dL Normal 70-100 [facility] Comment on above: Result Comment: [place] Glucose Reference Range is dependent on time and content of last meal. Glucose of more than 200 mg/dL in a nonstressed, ambulatory subject supports the diagnosis of Diabetes Mellitus. ADA recommended reference range Performed By: #### M G, CBC, BMP #### [facility] [address] Potassium [Moles/Vol] 4.1 mmol/L Normal 3.5-5.1 [facility] Comment on above: Performed By: #### M G, CBC, BMP #### [facility] [address] [place] [address] [place] Protein [Mass/Vol] 6.7 g/dL Normal 6.4-8.9 [facility] Comment on above: Performed By: #### M G, CBC, BMP #### [facility] [address] [place] [address] [place] Sodium [Moles/Vol] 135 mmol/L Low 136-145 [facility] Comment on above: Performed By: #### M G, CBC, BMP #### [facility] [address] [place] [id number] [place] Urea nitrogen [Mass/Vol] 8 mg/dL Normal 7-25 [facility] Comment on above: Performed By: #### M G, CBC, BMP #### [facility] [address] [place] [id number] [place] HEMOGLOBINon 05-29-2023 Hemoglobin (Bld) [Mass/Vol] 13.8 g/dL Normal 11.7-15.5 [facility] Comment on above: Performed By: #### C BCA, CMP, 3040-3, 65473-5 #### [facility] ([id number]) [address] [place] [address], [place] [address] Hematocrit Auto (Bld) [Volum e fraction]on 05-29-2023 Hematocrit (Bld) [Volume fraction] 40.6 % Normal 35-47 [facility] Comment on above: Performed By: #### 4 544-3, 209-7 #### [facility] ([id number]) [address] [place] [address] Lactate (P nancy) [Moles/Vol]o n 05-29-2023 Lactate [Moles/Vol] 3.5 mmol/L High 0.4-2.0 [facility] Comment on above: Performed By: #### 3 2133-1 #### [facility] ([id number]) [address] [place] [address] Magnesiumon 05-29-2023 Magnesium [Mass/Vol] 1.7 mg/dL Low 1.9-2.7 [facility] Comment on above: Result Comment: PERF ORMED BY: [place] [address] PATHOLOGIST [employer]ORD[employer] COUNSELOR SANDIE MAYES M.D. Performed By: #### M G, CBC, BMP #### [facility] [address] CBC AND AUTO DIFFon 05-28-19 24 ABSOLUTE BASOPHIL 0.0 X10E9/L Normal 0.0-0.2 [facility] Comment on above: Performed By: #### C BCA, CMP, 0-3, 47219-5 #### [facility] ([id number]) [address] [place] [address] ABSOLUTE NEUTROPHIL 7.6 X10E9/L High 1.5-6.[address] [facility] Comment on above: Performed By: #### C BCA, CMP, 3040-3, 25175-6 #### [facility] ([id number]) [address] [place] [address] Basophils/100 WBC (Bld) 0.4 % Normal [facility] Comment on above: Performed By: #### C BCA, CMP, 3040-3, 04760-4 #### [facility] ([id number]) [address] [place] [address] [place] [address] Eosinophils (Bld) [#/Vol] 0.0 10*3/uL Normal 0.0-0.4 [facility] Comment on above: Performed By: #### C FATOU GUTIÉRREZ, 3039-07, #### [facility] ([id number]) [address] [place] [address] 28890 Eosinophils/100 WBC (Bld) 0.3 % Normal [facility] Comment on above: Performed By: #### C BROCK [facility], 3039-07, #### [facility] ([id number]) [address] [place] [address] 67331 Erythrocyte distribution width (RBC) [Ratio] 13.2 % Normal 11.5-15.0 [facility] Comment on above: Performed By: #### Treasure GUTIÉRREZ [facility], 3039-07, #### [facility] ([id number]) [address] [place] [address] 25849 Hematocrit (Bld) [Volume fraction] 45.9 % Normal 35-47 [facility] Comment on above: Performed By: #### Treasure GUTIÉRREZ [facility], 3039-07, #### [facility] ([id number]) [address] [place] [address] 42282 Hemoglobin (Bld) [Mass/Vol] 15.8 g/dL High 11.7-15.5 [facility] Comment on above: Performed By: #### C BROCK CMP, 3039-07, #### [facility] ([id number]) [address] [place] [address] 19440 Lymphocytes (Bld) [#/Vol] 0.8 10*3/uL Low 1.0-3.5 [facility] Comment on above: Performed By: #### Treasure GUTIÉRREZ CMP, 3039-07, #### [facility] ([id number]) [address] [place] [address] 36472 Lymphocytes/100 WBC (Bld) 9.1 % Normal [facility] Comment on above: Performed By: #### C BROCK CMP, 3, #### [facility] ([id number]) [address] [place] [address] 39775 MCH (RBC) [Entitic mass] 34.6 pg High 27-34 [facility] Comment on above: Performed By: #### C BROCK CMP, 3039-07, #### [facility] ([id number]) [address] [place] [address] 23362 MCHC (RBC) [Mass/Vol] 34.4 g/dL Normal 32-36 [facility] Comment on above: Performed By: #### Treasure GUTIÉRREZ, CMP, 3039-07, #### [facility] ([id number]) [address] [place] [address] 16574 MCV (RBC) [Entitic vol] 100 fL Normal 80-100 [facility] Comment on above: Performed By: #### Treasure GUTIÉRREZ, CMP, 3039-07, #### [facility] ([id number]) [address] [place] [address] 60831 Monocytes (Bld) [#/Vol] 0.6 10*3/uL Normal 0-0.9 [facility] Comment on above: Performed By: #### C BROCK, CMP, 3039-07, #### [facility] ([id number]) [address] [place] [address] 27544 Monocytes/100 WBC (Bld) 6.8 % Normal [facility] Comment on above: Performed By: #### Treasure GUTIÉRREZ, CMP, 3039-07, #### [facility] ([id number]) [address] [place] [address] 59466 Neutrophils/100 WBC (Bld) 83.4 % Normal [facility] Comment on above: Performed By: #### Treasure GUTIÉRREZ CMP, 3, 28681-8 #### [facility] ([id number]) [address] [place] [address] 86583 Platelet mean volume (Bld) [Entitic vol] 6.8 fL Low 7-12 [facility] Comment on above: Performed By: #### C BROCK, CMP, 3039-07, #### [facility] ([id number]) [address] [place] [address] 28324 Platelets (Bld) [#/Vol] 278 10*3/uL Normal 150-450 [facility] Comment on above: Performed By: #### Treasure GUTIÉRREZ CMP, 3039-07, #### [facility] ([id number]) [address] [place] [address] 96941 RBC COUNT 4.58 X10E12/L Normal 3.80-5.20 [facility] Comment on above: Performed By: #### Treasure GUTIÉRREZ, CMP, 3039-07, 63688-3 #### [facility] ([id number]) [address] [place] [address] 42086 WBC (Bld) [#/Vol] 9.1 10*3/uL Normal 4.0-11.0 [facility] Comment on above: Performed By: #### Treasure BCA, CMP, 3039-07, #### [facility] ([id number]) [address] [place] [address] 21839 COMPREHENSIVE METABOLIC PANE Sourav 05-28-2023 Albumin [Mass/Vol] 4.2 g/dL Normal 3.2-5.3 [facility] Comment on above: Performed By: #### C BCA, CMP, 3039-07, #### [facility] ([id number]) [address] [place] [address] 00307 ALP [Catalytic activity/Vol] 84 U/L Normal 39-130 [facility] Comment on above: Performed By: #### C BCA, CMP, 3, #### [facility] ([id number]) [address] [place] [address] 29189 ALT [Catalytic activity/Vol] 93 U/L High 0-31 [facility] Comment on above: Performed By: #### C BCA, CMP, 3039-07, #### [facility] ([id number]) [address] [place] [address] 23423 Anion gap [Moles/Vol] 16 mmol/L High 5-15 [facility] Comment on above: Performed By: #### C BCA, CMP, 3039-07, #### [facility] ([id number]) [address] [place] [address] 88492 AST [Catalytic activity/Vol] 238 U/L High 0-41 [facility] Comment on above: Performed By: #### C BCA, CMP, 3039-07, #### [facility] ([id number]) [address] [place] [address] 55010 Bilirubin [Mass/Vol] 1.7 mg/dL High 0.3-1.[address] [facility] Comment on above: Performed By: #### C BCA, CMP, 3039-07, #### [facility] ([id number]) [address] [place] [address] 64328 Calcium [Mass/Vol] 9.0 mg/dL Normal 8.5-10.5 [facility] Comment on above: Performed By: #### C BCA, CMP, 3039-07, #### [facility] ([id number]) [address] [place] [address] 25982 Chloride [Moles/Vol] 103 mmol/L Normal 98-[address] [facility] Comment on above: Performed By: #### C FATOU GUTIÉRREZ, 3039-3, 34196-9 #### [facility] ([id number]) [address] [place] [address] 19995 CO2 [Moles/Vol] 19 mmol/L Low 22-32 [facility] Comment on above: Performed By: #### C BROCK [facility], 3039-07, 17566-9 #### [facility] ([id number]) [address] [place] [address] 14650 Creatinine [Mass/Vol] 0.75 mg/dL Normal 0.40-1.00 [facility] Comment on above: Result Comment: METH OD TRACEABLE TO IDMS STANDARD Performed By: #### C FATOU GUTIÉRREZ, 3039-07, 54696-6 #### [facility] ([id number]) [address] [place] [address] 96993 eGFR (CKD-EPI) NON-RACE DEPENDENT >90 Normal >59 [facility] Comment on above: Result Comment: Reported eGFR is based on the CKD-EPI 2021 equation that does not use a race coefficient. Performed By: #### C FATOU GUTIÉRREZ, 3039-07, 90078-5 #### [facility] ([id number]) [address] [place] [address] 84691 Glucose [Mass/Vol] 95 mg/dL Normal 65-99 [facility] Comment on above: Performed By: #### C FATOU GUTIÉRREZ, 3039-07, 34441-2 #### [facility] ([id number]) [address] [place] [address] 81148 Potassium [Moles/Vol] 3.6 mmol/L Normal 3.5-5.0 [facility] Comment on above: Performed By: #### C BCA, CMP, 3040-3, 18731-9 #### [facility] ([id number]) [address] [place] [address] 37535 Protein [Mass/Vol] 7.7 g/dL Normal 6.0-8.0 [facility] Comment on above: Performed By: #### C BCA, CMP, 3040-3, 81403-9 #### [facility] ([id number]) [address] [place] [address] 09329 Sodium [Moles/Vol] 138 mmol/L Normal 134-146 [facility] Comment on above: Performed By: #### C BCA, CMP, 3040-3, 31194-5 #### [facility] ([id number]) [address] [place] [address] 79479 Urea nitrogen [Mass/Vol] 8 mg/dL Normal 5-23 [facility] Comment on above: Performed By: #### C BCA, CMP, 3040-3, 22578-4 #### [facility] ([id number]) [address] [place] [address] ABDOMEN AND PELVIS W CONT on 05-28-2023 CT ABDOMEN AND PELVIS W CONT CT ABDOMEN AND PELVIS W CONT HISTORY: A 27-year-old female with the history of the acute abdominal pain. There is history of colitis. EXAM/TECHNIQUE: Multidetector spiral CT scan of abdomen and pelvis is performed during intravenous administration of 100 mL of Omnipaque-300. Multiplanar reconstruction images are reformatted. All CT scans at this facility use dose modulation, iterative reconstruction, and/or weight based dosing when appropriate to reduce radiation dose to as low as reasonably achievable. COMPARISON: Comparison is made with the CT scan of the abdomen and pelvis of 01/16/2023. FINDINGS: The lung bases are clear . Liver is normal in size and configuration. There is a diffuse fatty infiltration of the liver. There is a focal area of enhancing abnormality in the right lobe the liver similar to the prior study. As intermediate etiology of the liver mass. Spleen and pancreas are normal in size and configuration. No focal masses are identified. The gallbladder is normal. There is no evidence of biliary ductal dilatation. The adrenal glands are normal. Both kidneys show excretion of contrast without evidence of hydronephrosis or focal masses. The urinary bladder is unremarkable. Small bowel loops are unremarkable. There is a thickening of the colonic chen with loss of haustral markings. Appearance is nonspecific. Changes are suggestive of colitis. Sigmoid colon is otherwise unremarkable. There is evidence of appendicectomy. No evidence of intra-abdominal mass or free fluid. The visualized bones are unremarkable. IMPRESSION: 1. Thickening of the chen of the 80% of the colon and appears nonspecific. Changes are suggestive of colitis. Correlation with the clinical history would be helpful. 2. Status post appendicectomy. 3. Fatty infiltration of the liver. There is a intermediate mass in the right lobe the liver. MRI examination may be considered for better evaluation. 4. No evidence of appendicitis. Finalized by Sedrick Tellez MD on 05/28/2023 7:32 PM Normal [facility] HCG ( test) Ql (U)o n 05-28-2023 Beta HCG ( test) Ql (U) Negative Normal NEG [facility] Comment on above: Performed By: #### 2 106-3 #### [facility] ([id number]) [address] [place] [address] 07829 LIPASEon 05-28-2023 Lipase [Catalytic activity/Vol] 29 U/L Normal 17-40 [facility] Comment on above: Performed By: #### C BCA, CMP, 3040-3, 48755-9 #### [facility] ([id number]) [address] [place] [address] 00467 Lactate (P nancy) [Moles/Vol]o n 05-28-2023 LACTATE W/REFLEX 3.0 mmol/L High 0.4-2.0 [facility] Comment on above: Performed By: #### 3 2133-1 #### [facility] ([id number]) [address] [place] [address] 02496 MAGNESIUMon 05-28-2023 Magnesium [Mass/Vol] 1.6 mg/dL Low 1.8-2.[address] [facility] Comment on above: Performed By: #### C BCA, CMP, 3040-3, 03254-1 #### [facility] ([id number]) [address] [place] [address] 08472 URN MACROSCOPIC NURon 2023 BILIRUBIN AHMET Negative Normal NEG [facility] Comment on above: Performed By: #### N UM #### [facility] ([id number]) [address] [place] [address] 69936 BLOOD/HGB AHMET Negative Normal NEG [facility] Comment on above: Performed By: #### N UM #### [facility] ([id number]) [address] [place] [address] 57131 GLUCOSE AHMET Negative Normal NEG [facility] Comment on above: Performed By: #### N UM #### [facility] ([id number]) [address] [place] [address] [place] [address] KETONES AHMET Negative Normal NEG [facility] Comment on above: Performed By: #### N UM #### [facility] ([id number]) [address] [place] [address] [place] [address] LEUKOCYTE ESTERASE AHMET Negative Normal NEG [facility] Comment on above: Performed By: #### N UM #### [facility] ([id number]) [address] [place] [address] [place] [address] NITRITE AHMET Negative Normal NEG [facility] Comment on above: Performed By: #### N UM #### [facility] ([id number]) [address] [place] [address] 72743 PH AHMET 5.5 Normal 5.0-8.5 [facility] Comment on above: Performed By: #### N UM #### [facility] ([id number]) [address] [place] [address] 58995 PROTEIN AHMET 30 mg/dL Abnormal NEG [facility] Comment on above: Performed By: #### N UM #### [facility] ([id number]) [address] [place] [address] 29288 SPECIFIC GRAVITY AHMET >=1.030 Normal 1.003-1 .03 5 [facility] Comment on above: Performed By: #### N UM #### [facility] ([id number]) [address] [place] [address] 67307 UROBILINOGEN AHMET 1.0 eu/dL Normal <1.1 [facility] Comment on above: Performed By: #### N UM #### [facility] ([id number]) [address] [place] [address] 38546 MR abdomen wo/w conon 2023 MR abdomen wo/w con [facility] [place] [address] MRI Report Signed Patient: Christina Wallace MR#: [id number] 83 : 1995 Acct:[id number] Age/Sex: 27 / F ADM Date: 05/25/23 Loc: Room: Type: [facility] Attending Dr: Reagan Pompa APRN Copies to: Reagan Pompa APRN Ordering Provider: Reagan Pompa APRN Date of Service: 05/25/23 MR/MR abdomen wo/w con: K76.9 MR abdomen wo/w con 05/25/2023 11:42 PM SIGNS AND SYMPTOMS: Follow-up hepatic lesion. History of abdominal pain and vomiting TECHNIQUE: Multiplanar multisequence MR images of the abdomen were obtained with and without IV contrast. CONTRAST: 13 mL of intravenous ProHance COMPARISON: 03/25/2023 FINDINGS: Lower Chest: Within normal limits. ABDOMEN: Liver: There is a T2 hyperintense 1.6 cm structure in the anterior aspect of the right hepatic lobe corresponding to the area of enhancement seen on the previous exam. This is hypointense on precontrast T1 weighted imaging with nodular predominantly peripheral to central contrast enhancement on delayed imaging. This enhancement pattern favors a benign hemangioma. There is slight signal loss between in and out of phase imaging suggesting hepatic steatosis. Bile Ducts: Normal caliber. Gallbladder: No calcified gallstones. Normal caliber wall. Pancreas: Within normal limits. Spleen: Within normal limits. Adrenals: Within normal limits. Kidneys: Within normal limits. Pelvis: Reproductive Organs: No pelvic masses. Ureters: Within normal limits. Bladder: Within normal limits. Bowel: Normal caliber. Mesenteric Lymph Nodes: No enlarged mesenteric lymph nodes. Peritoneum: No ascites or free air, no fluid collection. Vessels: Satisfactory flow voids are noted in the abdominal aorta, inferior vena cava, and portal vein. Retroperitoneum: Within normal limits. Abdominal Wall: Within normal limits. Bones: Within normal limits. MR/MR abdomen wo/w con IMPRESSION: There is a T2 hyperintense 1.6 cm structure in the anterior aspect of the right hepatic lobe corresponding to the area of enhancement seen on the previous exam. This is hypointense on precontrast T1 weighted imaging with nodular predominantly peripheral to central contrast enhancement on delayed imaging. This enhancement pattern favors a benign hemangioma. There is slight signal loss within the liver between in and out of phase imaging suggesting hepatic steatosis. Impression dictated by: Jeff Martines M.D.05/26/2023 12:39 PM Dictation Location: [place] [address] Transcribed By: SUSY 05/26/23 1239 Dictated By: Jeff Martines II, MD 05/26/23 1221 Signed By: 05/26/23 1239 Normal [facility] Amphetamine Screen Ql (U)Ord ered By: Kenrick Gill on 05-17-2023 Amphetamines Ql (U) Negative Negative [facility] Barbiturates [Presence] in U rine by Screen methodOrdered By: Kenrick Gill on 05-17-2023 Barbiturates Screen Ql (U) Negative Negative [facility] Benzodiazepines Screen Ql (U )Ordered By: Kenrick Gill on 05-17-2023 Benzodiazepines Ql (U) Negative Negative [facility] Benzoylecgonine [Presence] i n Urine by Screen methodOrdered By: Kenrick Gill on 05-17-2023 Benzoylecgonine Screen Ql (U) Negative Negative [facility] Cannabinoids [Presence] in U rine by Screen methodOrdered By: Kenrick Gill on 05-17-2023 Cannabinoids Screen Ql (U) Positive Negative [facility] Comment on above: These are unconfirme d results and should not be used for legal purposes. Drug Cut-Off Concentration: AMPH 1000 ng/mL HALIMA 200 ng/mL JOSUÉ 200 ng/mL COCM 300 ng/mL OP 300 ng/mL PCP 25 ng/mL THC 20 ng/mL Drug Screen,Urineon 05-17-20 23 Amphetamine Screen,Urine Negative Normal Negative [facility] Comment on above: Order Comment: Comme nt please add on to urine already there for HCG Performed By: #### U RDS #### [address] Barbiturate Screen,Urine Negative Normal Negative [facility] Comment on above: Order Comment: Comme nt please add on to urine already there for HCG Performed By: #### U RDS #### [place] [address] [place] Benzodiazepines Screen,Urine Negative Normal Negative [facility] Comment on above: Order Comment: Comme nt please add on to urine already there for HCG Performed By: #### U RDS #### [place] [address] [place] Cannabinoid Screen,Urine Positive High Negative [facility] Comment on above: Order Comment: Comme nt please add on to urine already there for HCG Result Comment: Thes e are unconfirmed results and should not be used for legal purposes. Drug Cut-Off Concentration: AMPH 1000 ng/mL HALIMA 200 ng/mL JOSUÉ 200 ng/mL COCM 300 ng/mL OP 300 ng/mL PCP 25 ng/mL THC 20 ng/mL PERFORMED BY: [place] [address] PATHOLOGIST [employer] COUNSELOR SANDIE MAYES M.D. Performed By: #### U RDS #### [place] [address] [place] Cocaine Screen,Urine Negative Normal Negative [facility] Comment on above: Order Comment: Comme nt please add on to urine already there for HCG Performed By: #### U RDS #### [facility] [address] Opiate Screen,Urine Negative Normal Negative [facility] Comment on above: Order Comment: Comme nt please add on to urine already there for HCG Performed By: #### U RDS #### [facility] [address] Phencyclidine Screen,Urine Negative Normal Negative [facility] Comment on above: Order Comment: Comme nt please add on to urine already there for HCG Performed By: #### U RDS #### [facility] [address] HCG ( test) IA.rapi d Ql (U)Ordered By: Kenrick Gill on 05-17-2023 HCG ( test) Ql (U) Negative [facility] HCG,Urineon 05-17-2023 Beta HCG ( test) Ql (U) Negative Normal [facility] Comment on above: Result Comment: PERF ORMED BY: [place] [address] PATHOLOGIST [employer] COUNSELOR SANDIE MAYES M.D. Performed By: #### M G, CBC, BMP #### [facility] [address] Sourav 05-17-2023 L ----- Specimen: [id number] Received: 05/17/23 Status: MARC Jeffrey Num: [id number] Spec Type: Surgical Subm Dr: Kenrick Gill MD Tissues: A Colon Biopsy (RANDOM COLON BX) Procedures: HE/2, Gross/Micro L4 Age/ Patient Sex Location Account Attending Physician Christina Wallace [id number] Kenrick Gill MD SPEC NUM: [id number] RECD: 05/17/23 STATUS: MARC MURPHY NUM: [id number] KATIE: 05/17/23- [facility] DR: Kenrick Gill MD ENTERED: 05/17/[address] [facility] [address]: ALEJANDRO TYPE: Surgical DEPT: S ORDERED: HE/2, Gross/Micro L4 ORDERED: HE/2, Gross/Micro L4 Pathological Diagnosis Colon, Random Biopsies: Mild Increase In Intra-epithelial Lymphocytes. Cannot Rule Out Evolving/ Resolving Microscopic (lymphocytic) Colitis. Clinical Information Abdomen pain, constipation, change in bowel habits, rule out microscopic colitis Gross Description Received in formalin labeled with the patient's name, date of and random colon biopsies are two avila tissues averaging 0.4 x 0.3 x 0.2 cm. Entirely submitted in one cassette labeled A1. Microscopic Description Two H E slides reviewed. The microscopic examination confirms the diagnosis. CPT Codes 32677 Specimen: [id number] Received: 05/17/23 Status: MARC Tanso Num: [id number] Spec Type: Surgical Subm Dr: Kenrick Gill MD Tissues: A Colon Biopsy (RANDOM COLON BX) Procedures: MINA Gross/Liz L4 Patient: Christina Wallace [id number] (Continued) Signed (signature on file) Rory Espinal MD 05/19/23 0209 Normal [facility] Opiates [Presence] in Urine by Screen methodOrdered By: Kenrick Gill on 05-17-2023 Opiates Screen Ql (U) Negative Negative [facility] Phencyclidine Screen Ql (U)O rdered By: Kenrick Gill on 05-17-2023 Phencyclidine Ql (U) Negative Negative [facility] CT abdomen pelvis w conon CT abdomen pelvis w con [facility] [place] [address] [place] [address] CT Scan Report Signed Patient: Christina Wallace MR#: [id number] [birth year] : 1995 Acct:[id number] Age/Sex: 27 / F ADM Date: 03/25/23 Loc: ER Room: Type: [facility] ER Attending Dr: Copies to: Rabia Murrieta DO Ordering Provider: Rabia Murrieta DO Date of Service: 03/25/23 CT/CT abdomen pelvis w con: f CT abdomen pelvis w con 03/25/2023 8:36 PM SIGNS AND SYMPTOMS: Abdominal pain, vomiting, liver lesion seen on recent ultrasound TECHNIQUE: Multidetector ct axial images of the abdomen and pelvis were obtained without IV contrast. Multiplanar reformats were performed and reviewed to further define anatomy and possible pathology. CT was performed with one or more of the following dose reduction techniques: Automated exposure control, adjustment of the mA and/or kV according to patient size, or use of iterative reconstruction technique. COMPARISON: 03/25/2023 FINDINGS: Lower Chest: Within normal limits. ABDOMEN: Liver: The liver is diffusely hypoattenuating suggesting hepatic steatosis. There is a 1.7 cm enhancing structure within the right hepatic lobe which is of uncertain etiology. This is relatively ill-defined. The differential would include a focus of focal fatty sparing, a benign hemangioma, hepatic adenoma, amongst other possibilities. Further investigation with nonemergent contrast- enhanced MRI of the liver is recommended for better characterization. Bile Ducts: Normal caliber. Gallbladder: No calcified gallstones. Normal caliber wall. Pancreas: Within normal limits. Spleen: Within normal limits. Adrenals: Within normal limits. Kidneys: Within normal limits. Pelvis: Reproductive Organs: No pelvic masses. Ureters: Within normal limits. Bladder: Within normal limits. Bowel: Normal caliber. Mesenteric Lymph Nodes: No enlarged mesenteric lymph nodes. Peritoneum: No ascites or free air, no fluid collection. Vessels: within normal limits Retroperitoneum: Within normal limits. Abdominal Wall: Within normal limits. Bones: Within normal limits. CT/CT abdomen pelvis w con IMPRESSION: There is a 1.7 cm enhancing structure within the right hepatic lobe which is of uncertain etiology. This is relatively ill-defined. The differential would include a focus of focal fatty sparing, a benign hemangioma, hepatic adenoma, amongst other possibilities. Further investigation with nonemergent contrast-enhanced MRI of the liver is recommended for better characterization. Findings suggest hepatic steatosis. Impression dictated by: Jeff Martines M.D.03/26/2023 8:59 AM Dictation Location: [place] [address] Transcribed By: [facility] 03/26/23858 Dictated By: Jeff Martines II, MD 03/26/2348 Signed By: 03/26/2359 [address] [facility] CT abdomen pelvis w con [facility] [place] [address] CT Scan Report Signed Patient: Christina Wallace MR#: [id number] [birth year] : 1995 Acct:[id number] Age/Sex: 27 / F ADM Date: 03/25/23 Loc: Room: Type: [facility] ER Attending Dr: Copies to: Rabia Murrieta DO Ordering Provider: Rabia Murrieta DO Date of Service: 03/25/23 CT/CT abdomen pelvis w con: f CT abdomen pelvis w con 03/25/2023 8:36 PM SIGNS AND SYMPTOMS: Abdominal pain, vomiting, liver lesion seen on recent ultrasound TECHNIQUE: Multidetector ct axial images of the abdomen and pelvis were obtained without IV contrast. Multiplanar reformats were performed and reviewed to further define anatomy and possible pathology. CT was performed with one or more of the following dose reduction techniques: Automated exposure control, adjustment of the mA and/or kV according to patient size, or use of iterative reconstruction technique. COMPARISON: 03/25/2023 FINDINGS: Lower Chest: Within normal limits. ABDOMEN: Liver: The liver is diffusely hypoattenuating suggesting hepatic steatosis. There is a 1.7 cm enhancing structure within the right hepatic lobe which is of uncertain etiology. This is relatively ill-defined. The differential would include a focus of focal fatty sparing, a benign hemangioma, hepatic adenoma, amongst other possibilities. Further investigation with nonemergent contrast- enhanced MRI of the liver is recommended for better characterization. Bile Ducts: Normal caliber. Gallbladder: No calcified gallstones. Normal caliber wall. Pancreas: Within normal limits. Spleen: Within normal limits. Adrenals: Within normal limits. Kidneys: Within normal limits. Pelvis: Reproductive Organs: No pelvic masses. Ureters: Within normal limits. Bladder: Within normal limits. Bowel: Normal caliber. Mesenteric Lymph Nodes: No enlarged mesenteric lymph nodes. Peritoneum: No ascites or free air, no fluid collection. Vessels: within normal limits Retroperitoneum: Within normal limits. Abdominal Wall: Within normal limits. Bones: Within normal limits. CT/CT abdomen pelvis w con IMPRESSION: There is a 1.7 cm enhancing structure within the right hepatic lobe which is of uncertain etiology. This is relatively ill-defined. The differential would include a focus of focal fatty sparing, a benign hemangioma, hepatic adenoma, amongst other possibilities. Further investigation with nonemergent contrast-enhanced MRI of the liver is recommended for better characterization. Findings suggest hepatic steatosis. Impression dictated by: Jeff Martines M.D.03/26/2023 8:59 AM Dictation Location: [place] [address] Transcribed By: [facility] 03/26/23858 Dictated By: Jeff Martines II, MD 03/26/2348 Signed By: 03/26/23858 Normal [facility] Activated partial thrombopla stin time (aPTT) in platelet poor plasma by coagulation aOrdered By: Rabia Murrieta on 03-25-2023 aPTT Coag (PPP) [Time] 29.8 s 25.1-36.5 [facility] Comment on above: A hematocrit value g reater than 55% may lead to inaccurate results in coagulation testing. Patients having hematocrit values >55% require a special collection tube for coagulation studies. Please contact the laboratory at [phone] for redraw instructions. Alanine aminotransferase [En zymatic activity/volume] in Serum or PlasmaOrdered By: Rabia Murrieta on 03-25-2023 ALT [Catalytic activity/Vol] 69 U/L 7-52 [facility] Albumin [Mass/volume] in Ser um or Plasma by Bromocresol green (BCG) dye binding methoOrdered By: Rabia Murrieta on 03-25-2023 Albumin BCG dye [Mass/Vol] 4.3 g/dL 3.5-5.7 [facility] Alkaline phosphatase [Enzyma tic activity/volume] in Serum or PlasmaOrdered By: Rabia Murrieta on 03-25-2023 ALP [Catalytic activity/Vol] 77 U/L 34-104 [facility] Aspartate aminotransferase [ Enzymatic activity/volume] in Serum or PlasmaOrdered By: Rabia Murrieta on 03-25-2023 AST [Catalytic activity/Vol] 132 U/L 13-39 [facility] Automated erythrocytes count in urine sediment (number/area)Ordered By: Rabia Murrieta on 03-25-2023 RBC Auto (Urine sed) [#/Area] None seen [HPF] 0-4 [facility] Automated leukocytes count i n urine sediment (number/area)Ordered By: Rabia Murrieta on 03-25-2023 WBC Auto (Urine sed) [#/Area] 20-49 [HPF] 0-4 [facility] Automated urine hyaline cast s count (number/volume)Ordered By: Rabia Murrieta on 03-25-2023 Hyaline casts Auto (U) [#/Vol] 20-49 [LPF] 0-1 [facility] Basic Metabolic Panelon 11-0 Anion gap [Moles/Vol] 22.6 mmol/L High 6.0-15.0 [facility] Comment on above: Performed By: #### C BC, PTT, HEPATIC, BMP, LIPASE, PT #### [facility] [address] Performed By: #### B MP, MG, CBC #### [facility] [address] Calcium [Mass/Vol] 9.8 mg/dL Normal 8.6-10.3 [facility] Comment on above: Performed By: #### C BC, PTT, HEPATIC, BMP, LIPASE, PT #### [facility] [address] [place] [address] Performed By: #### B MP, MG, CBC #### [address] Chloride [Moles/Vol] 102 mmol/L Normal 98-107 [facility] Comment on above: Performed By: #### C BC, PTT, HEPATIC, BMP, LIPASE, PT #### [facility] [address] [place] [address] Performed By: #### B MP, MG, CBC #### [address] CO2 [Moles/Vol] 20.9 mmol/L Low 21.0-31.0 [facility] Comment on above: Performed By: #### C BC, PTT, HEPATIC, BMP, LIPASE, PT #### [address] Performed By: #### B MP, MG, CBC #### [address] Creatinine [Mass/Vol] 0.71 mg/dL Normal 0.60-1.20 [facility] Comment on above: Performed By: #### C BC, PTT, HEPATIC, BMP, LIPASE, PT #### [address] Performed By: #### B MP, MG, CBC #### [address] Creatinine Clr Calc Pharmacy 99.09 [facility] Comment on above: Performed By: #### C BC, PTT, HEPATIC, BMP, LIPASE, PT #### [facility] [address] [place] [address] Performed By: #### B MP, MG, CBC #### [address] GFR/1.73 sq M.predicted MDRD (S/P/Bld) [Vol rate/Area] mL/min/{1.73_m2} [facility] Comment on above: Performed By: #### C BC, PTT, HEPATIC, BMP, LIPASE, PT #### [address] Performed By: #### B MP, MG, CBC #### [address] Glucose [Mass/Vol] 103 mg/dL High 70-100 [facility] Comment on above: Result Comment: [place] Glucose Reference Range is dependent on time and content of last meal. Glucose of more than 200 mg/dL in a nonstressed, ambulatory subject supports the diagnosis of Diabetes Mellitus. ADA recommended reference range Performed By: #### C BC, PTT, HEPATIC, BMP, LIPASE, PT #### [address] Performed By: #### B MP, MG, CBC #### [address] Potassium [Moles/Vol] 4.5 mmol/L Normal 3.5-5.1 [facility] Comment on above: Performed By: #### C BC, PTT, HEPATIC, BMP, LIPASE, PT #### [address] Performed By: #### B MP, MG, CBC #### [address] Sodium [Moles/Vol] 141 mmol/L Normal 136-145 [facility] Comment on above: Performed By: #### C BC, PTT, HEPATIC, BMP, LIPASE, PT #### [address] Performed By: #### B MP, MG, CBC #### [address] Urea nitrogen [Mass/Vol] 6 mg/dL Low 7-25 [facility] Comment on above: Performed By: #### C BC, PTT, HEPATIC, BMP, LIPASE, PT #### [address] Performed By: #### B MP, MG, CBC #### [address] [place] [address] [facility] Basophils Auto (Bld) [#/Vol] Ordered By: Rabia Murrieta on 03-25-2023 Basophils (Bld) [#/Vol] 0.0 10*3/uL 0.0-0.2 [facility] Basophils/100 WBC Auto (Bld) Ordered By: Rabia Murrieta on 03-25-2023 Basophils/100 WBC (Bld) 0.3 % . [facility] Bilirubin Test strip Ql (U)O rdered By: Rabia Murrieta on 03-25-2023 Bilirubin Ql (U) 1+ Negative [facility] Bilirubin.direct [Mass/volum e] in Serum or PlasmaOrdered By: Rabia Murrieta on 03-25-2023 Bilirubin.direct [Mass/Vol] 0.30 mg/dL 0.03-0.18 [facility] Bilirubin.total [Mass/volume ] in Serum or PlasmaOrdered By: Rabia Murrieta on 03-25-2023 Bilirubin [Mass/Vol] 1.9 mg/dL 0.3-1.0 [facility] Comment on above: Samples from patient s who have taken Naproxen have shown spurious elevation in Total Bilirubin levels. A metabolite of Naproxen, O-desmethylnaproxen, has been shown to interfere with the Amisha-Kristopher method for measuring Total Bilirubin. Calcium [Mass/volume] in Ser um or PlasmaOrdered By: Rabia Murrieta on 03-25-2023 Calcium [Mass/Vol] 9.8 mg/dL 8.6-10.3 [facility] Carbon dioxide, total [Moles /volume] in Serum or PlasmaOrdered By: Rabia Murrieta on 03-25-2023 CO2 [Moles/Vol] 20.9 mmol/L 21.0-31.0 [facility] Casts typing in urine sedime nt by light microscopyOrdered By: Rabia Murrieta on 03-25-2023 Casts LM Nom (Urine sed) None seen [LPF] None Seen [facility] Chloride [Moles/volume] in S isidro or PlasmaOrdered By: Rabia Murrieta on 03-25-2023 Chloride [Moles/Vol] 102 mmol/L 98-107 [facility] Color Auto (U)Ordered By: Guerrero Murrieta on 03-25-2023 Color (U) Dark yellow Yellow [facility] Complete Blood Count Auto Di ffon 03-25-2023 Basophils (Bld) [#/Vol] 0.0 10*3/uL Normal 0.0-0.2 [facility] Comment on above: Result Comment: PERF ORMED BY: [place] [address] PATHOLOGIST [employer] COUNSELOR SANDIE MAYES M.D. Performed By: #### C BC, PTT, HEPATIC, BMP, LIPASE, PT #### [address] Performed By: #### M G, CBC, BMP #### [address] Basophils/100 WBC (Bld) 0.3 % Normal . [facility] Comment on above: Performed By: #### C BC, PTT, HEPATIC, BMP, LIPASE, PT #### [address] Performed By: #### M G, CBC, BMP #### [address] Eosinophils (Bld) [#/Vol] 0.0 10*3/uL Normal 0.0-0.45 [facility] Comment on above: Performed By: #### C BC, PTT, HEPATIC, BMP, LIPASE, PT #### [facility] [address] [place] [address] Performed By: #### M G, CBC, BMP #### [address] Eosinophils/100 WBC (Bld) 0.0 % Normal . [facility] Comment on above: Performed By: #### C BC, PTT, HEPATIC, BMP, LIPASE, PT #### [address] Performed By: #### M G, CBC, BMP #### [address] Erythrocyte distribution width (RBC) [Ratio] 13.2 % Normal 11.9-15.3 [facility] Comment on above: Performed By: #### C BC, PTT, HEPATIC, BMP, LIPASE, PT #### [address] Performed By: #### M G, CBC, BMP #### [address] Hematocrit (Bld) [Volume fraction] 46.4 % Normal 34.0-46.4 [facility] Comment on above: Performed By: #### C BC, PTT, HEPATIC, BMP, LIPASE, PT #### [address] Performed By: #### M G, CBC, BMP #### [address] Hemoglobin (Bld) [Mass/Vol] 16.0 g/dL High 11.8-15.4 [facility] Comment on above: Performed By: #### C BC, PTT, HEPATIC, BMP, LIPASE, PT #### [address] Performed By: #### M G, CBC, BMP #### [address] Lymphocytes (Bld) [#/Vol] 0.5 10*3/uL Low 1.00-4.8 [facility] Comment on above: Performed By: #### C BC, PTT, HEPATIC, BMP, LIPASE, PT #### [address] Performed By: #### M G, CBC, BMP #### [address] Lymphocytes/100 WBC (Bld) 4.9 % Normal . [facility] Comment on above: Performed By: #### C BC, PTT, HEPATIC, BMP, LIPASE, PT #### [address] Performed By: #### M G, CBC, BMP #### [address] MCH (RBC) [Entitic mass] 34.3 pg Normal 24.7-34.3 [facility] Comment on above: Performed By: #### C BC, PTT, HEPATIC, BMP, LIPASE, PT #### [address] Performed By: #### M G, CBC, BMP #### [address] MCV (RBC) [Entitic vol] 99.7 fL Normal 80-100 [facility] Comment on above: Performed By: #### C BC, PTT, HEPATIC, BMP, LIPASE, PT #### [address] Performed By: #### M G, CBC, BMP #### [address] Mean Corpuscular HGB Conc 34.4 g/dL Normal 32.0-35.0 [facility] Comment on above: Performed By: #### C BC, PTT, HEPATIC, BMP, LIPASE, PT #### [address] Performed By: #### M G, CBC, BMP #### [address] Monocytes (Bld) [#/Vol] 0.5 10*3/uL Normal 0.0-0.8 [facility] Comment on above: Performed By: #### C BC, PTT, HEPATIC, BMP, LIPASE, PT #### [address] Performed By: #### M G, CBC, BMP #### [address] Monocytes/100 WBC (Bld) 18.22 % Normal 0.00-20.00 [facility] Comment on above: Performed By: #### C BC, PTT, HEPATIC, BMP, LIPASE, PT #### [address] Performed By: #### M G, CBC, BMP #### [address] Monocytes/100 WBC (Bld) 4.9 % Normal . [facility] Comment on above: Performed By: #### C BC, PTT, HEPATIC, BMP, LIPASE, PT #### [address] Performed By: #### M G, CBC, BMP #### [address] Neutrophils (Bld) [#/Vol] 10.0 10*3/uL High 1.8-7.7 [facility] Comment on above: Performed By: #### C BC, PTT, HEPATIC, BMP, LIPASE, PT #### [address] Performed By: #### M G, CBC, BMP #### [address] Neutrophils/100 WBC (Bld) 89.9 % Normal . [facility] Comment on above: Performed By: #### C BC, PTT, HEPATIC, BMP, LIPASE, PT #### [address] Performed By: #### M G, CBC, BMP #### [address] NRBC% 0.2 /100{WBC} Normal 0-0.5 [facility] Comment on above: Performed By: #### C BC, PTT, HEPATIC, BMP, LIPASE, PT #### [address] Performed By: #### M G, CBC, BMP #### [address] Platelet mean volume (Bld) [Entitic vol] 7.3 fL Normal 6.3-10.7 [facility] Comment on above: Performed By: #### C BC, PTT, HEPATIC, BMP, LIPASE, PT #### [address] Performed By: #### M G, CBC, BMP #### [address] Platelets (Bld) [#/Vol] 291 10*3/uL Normal 150-450 [facility] Comment on above: Performed By: #### C BC, PTT, HEPATIC, BMP, LIPASE, PT #### [address] Performed By: #### M G, CBC, BMP #### [address] RBC (Bld) [#/Vol] 4.66 10*6/uL Normal 3.60-5.00 [facility] Comment on above: Performed By: #### C BC, PTT, HEPATIC, BMP, LIPASE, PT #### [address] Performed By: #### M G, CBC, BMP #### [address] WBC (Bld) [#/Vol] 11.1 10*3/uL Normal 3.8-11.6 [facility] Comment on above: Performed By: #### C BC, PTT, HEPATIC, BMP, LIPASE, PT #### [address] Performed By: #### M G, CBC, BMP #### [address] Creatinine [Mass/volume] in Serum or PlasmaOrdered By: Rabia Murrieta on 03-25-2023 Creatinine [Mass/Vol] 0.71 mg/dL 0.60-1.20 [facility] Dipstick and Microscopicon 1 05-25-2022 Appearance (U) Cloudy Critically abnormal Clear [facility] Comment on above: Order Comment: Name Collection Type:: Clean-Voided Midstream Performed By: #### C UU, ADDONUAPLUS, UHCG #### [address] [place] [address] [place] Performed By: #### B MP, MG, CBC #### [place] [address] [place] Bacteria,Urine 2+ High None Seen [facility] Comment on above: Order Comment: Name Collection Type:: Clean-Voided Midstream Performed By: #### C UU, ADDONUAPLUS, UHCG #### [address] Performed By: #### B MP, MG, CBC #### [address] Bilirubin,Urine 1+ High Negative [facility] Comment on above: Order Comment: Name Collection Type:: Clean-Voided Midstream Performed By: #### C UU, ADDONUAPLUS, UHCG #### [address] Performed By: #### B MP, MG, CBC #### [address] Color (U) Dark Yellow Critically abnormal Yellow [facility] Comment on above: Order Comment: Name Collection Type:: Clean-Voided Midstream Performed By: #### C UU, ADDONUAPLUS, UHCG #### [address] Performed By: #### B MP, MG, CBC #### [facility] [address] [place] [address] Glucose Ql (U) Normal Normal Normal [facility] Comment on above: Order Comment: Name Collection Type:: Clean-Voided Midstream Performed By: #### C UU, ADDONUAPLUS, UHCG #### [facility] [address] [place] [address] Performed By: #### B MP, MG, CBC #### [place] [address] [place] Hyaline Casts,Urine 20-49 High 0-1 [facility] Comment on above: Order Comment: Name Collection Type:: Clean-Voided Midstream Performed By: #### C UU, ADDONUAPLUS, UHCG #### [facility] [address] [place] [address] Performed By: #### B MP, MG, CBC #### [facility] [address] [place] [address] Ketones Ql (U) 1+ High Negative [facility] Comment on above: Order Comment: Name Collection Type:: Clean-Voided Midstream Performed By: #### C UU, ADDONUAPLUS, UHCG #### [facility] [address] [place] [address] Performed By: #### B MP, MG, CBC #### [address] Leukocyte esterase Test strip Ql (U) 1+ High Negative [facility] Comment on above: Order Comment: Name Collection Type:: Clean-Voided Midstream Performed By: #### C UU, ADDONUAPLUS, UHCG #### [address] Performed By: #### B MP, MG, CBC #### [facility] [address] [place] [address] Mucus,Urine 2+ Critically abnormal [facility] Comment on above: Order Comment: Name Collection Type:: Clean-Voided Midstream Performed By: #### C UU, ADDONUAPLUS, UHCG #### [facility] [address] [place] [address] Performed By: #### B MP, MG, CBC #### [facility] [address] [place] [address] Nitrite,Urine Negative Normal Negative [facility] Comment on above: Order Comment: Name Collection Type:: Clean-Voided Midstream Performed By: #### C UU, ADDONUAPLUS, UHCG #### [facility] [address] [place] [address] Performed By: #### B MP, MG, CBC #### [facility] [address] [place] [address] Occult Blood,Urine Negative Normal Negative [facility] Comment on above: Order Comment: Name Collection Type:: Clean-Voided Midstream Performed By: #### C UU, ADDONUAPLUS, UHCG #### [address] Performed By: #### B MP, MG, CBC #### [address] Other Casts,Urine None Seen Normal None Seen [facility] Comment on above: Order Comment: Name Collection Type:: Clean-Voided Midstream Performed By: #### C UU, ADDONUAPLUS, UHCG #### [address] Performed By: #### B MP, MG, CBC #### [address] pH (U) 6.0 [pH] Normal 5.0-9.0 [facility] Comment on above: Order Comment: Name Collection Type:: Clean-Voided Midstream Performed By: #### C UU, ADDONUAPLUS, UHCG #### [facility] [address] [place] [address] Performed By: #### B MP, MG, CBC #### [address] Protein (U) [Mass/Vol] 30 mg/dL High Negative [facility] Comment on above: Order Comment: Name Collection Type:: Clean-Voided Midstream Performed By: #### C UU, ADDONUAPLUS, UHCG #### [facility] [address] [place] [address] Performed By: #### B MP, MG, CBC #### [address] RBC,Urine None Seen Normal 0-4 [facility] Comment on above: Order Comment: Name Collection Type:: Clean-Voided Midstream Performed By: #### C UU, ADDONUAPLUS, UHCG #### [address] Performed By: #### B MP, MG, CBC #### [address] Specificy [place],Urine 1.027 Normal 1.001-1.03 0 [facility] Comment on above: Order Comment: Name Collection Type:: Clean-Voided Midstream Performed By: #### C UU, ADDONUAPLUS, UHCG #### [address] Performed By: #### B MP, MG, CBC #### [address] Squamous Epithelial Cell,Urine 10-19 High 0-2 [facility] Comment on above: Order Comment: Name Collection Type:: Clean-Voided Midstream Performed By: #### C UU, ADDONUAPLUS, UHCG #### [address] Performed By: #### B MP, MG, CBC #### [address] Urobilinogen,Urine Normal Normal Normal [facility] Comment on above: Order Comment: Name Collection Type:: Clean-Voided Midstream Performed By: #### C UU, ADDONUAPLUS, UHCG #### [address] Performed By: #### B MP, MG, CBC #### [address] WBC,Urine 20-49 High 0-4 [facility] Comment on above: Order Comment: Name Collection Type:: Clean-Voided Midstream Performed By: #### C UU, ADDONUAPLUS, UHCG #### [address] Performed By: #### B MP, MG, CBC #### [address] Eosinophils Auto (Bld) [#/Vo l]Ordered By: Rabia Murrieta on 03-25-2023 Eosinophils (Bld) [#/Vol] 0.0 10*3/uL 0.0-0.45 [facility] Eosinophils/100 WBC Auto (Bl d)Ordered By: Rabia Murrieta on 03-25-2023 Eosinophils/100 WBC (Bld) 0.0 % . [facility] Erythrocyte distribution wid th Auto (RBC) [Ratio]Ordered By: Rabia Murrieta on 03-25-2023 Erythrocyte distribution width (RBC) [Ratio] 13.2 % 11.9-15.3 [facility] Globulin Calc (S) [Mass/Vol] Ordered By: Rabia Murrieta on 03-25-2023 Globulin (S) [Mass/Vol] 3.4 g/dL [facility] Glucose [Mass/volume] in Ser um or PlasmaOrdered By: Rabia Murrieta on 03-25-2023 Glucose [Mass/Vol] 103 mg/dL 70-100 [facility] Comment on above: ADA recommended refe rence rangeRandom Glucose Reference Range is dependent on time and content of last meal. Glucose of more than 200 mg/dL in a nonstressed, ambulatory subject supports the diagnosis of Diabetes Mellitus. HCG ( test) IA.rapi d Ql (U)Ordered By: Rabia Murrieta on 03-25-2023 HCG ( test) Ql (U) Negative [facility] HCG,Urineon 03-25-2023 Beta HCG ( test) Ql (U) Negative Normal [facility] Comment on above: Order Comment: Name Collection Type:: Clean-Voided Midstream Result Comment: PERF ORMED BY: [place] [address] PATHOLOGIST [employer]ORD[employer] COUNSELOR SANDEI MAYES M.D. Performed By: #### C UU, ADDONUAPLUS, UHCG #### [facility] [address] [place] [address] Performed By: #### B MP, MG, CBC #### [facility] [address] [place] [address] Hematocrit Auto (Bld) [Volum e fraction]Ordered By: Rabia Murrieta on 03-25-2023 Hematocrit (Bld) [Volume fraction] 46.4 % 34.0-46.4 [facility] Hemoglobin [Mass/volume] in BloodOrdered By: Rabia Murrieta on 03-25-2023 Hemoglobin (Bld) [Mass/Vol] 16.0 g/dL 11.8-15.4 [facility] Hepatic Panelon 03-25-2023 Albumin [Mass/Vol] 4.3 g/dL Normal 3.5-5.7 [facility] Comment on above: Performed By: #### C BC, PTT, HEPATIC, BMP, LIPASE, PT #### [facility] [address] [place] [address] Performed By: #### B MP, MG, CBC #### [address] Albumin/Globulin [Mass ratio] 1.3 {ratio} Normal [facility] Comment on above: Performed By: #### C BC, PTT, HEPATIC, BMP, LIPASE, PT #### [facility] [address] [place] [address] Performed By: #### B MP, MG, CBC #### [facility] [address] [place] [address] ALP [Catalytic activity/Vol] 77 U/L Normal 34-104 [facility] Comment on above: Performed By: #### C BC, PTT, HEPATIC, BMP, LIPASE, PT #### [facility] [address] [place] [address] Performed By: #### B MP, MG, CBC #### [facility] [address] [place] [address] ALT [Catalytic activity/Vol] 69 U/L High 7-52 [facility] Comment on above: Performed By: #### C BC, PTT, HEPATIC, BMP, LIPASE, PT #### [facility] [address] [place] [address] Performed By: #### B MP, MG, CBC #### [facility] [address] [place] [address] AST [Catalytic activity/Vol] 132 U/L High 13-39 [facility] Comment on above: Performed By: #### C BC, PTT, HEPATIC, BMP, LIPASE, PT #### [address] Performed By: #### B MP, MG, CBC #### [address] Bilirubin [Mass/Vol] 1.9 mg/dL High 0.3-1.0 [facility] Comment on above: Result Comment: Samp les from patients who have taken Naproxen have shown spurious elevation in Total Bilirubin levels. A metabolite of Naproxen, O-desmethylnaproxen, has been shown to interfere with the Jendrassik-Grof method for measuring Total Bilirubin. Performed By: #### C BC, PTT, HEPATIC, BMP, LIPASE, PT #### [address] Performed By: #### B MP, MG, CBC #### [address] Bilirubin,Indirect 1.6 mg/dL Normal [facility] Comment on above: Performed By: #### C BC, PTT, HEPATIC, BMP, LIPASE, PT #### [address] Performed By: #### B MP, MG, CBC #### [address] Bilirubin.indirect [Mass/Vol] 0.30 mg/dL High 0.03-0.18 [facility] Comment on above: Performed By: #### C BC, PTT, HEPATIC, BMP, LIPASE, PT #### [address] Performed By: #### B MP, MG, CBC #### [address] Globulin (S) [Mass/Vol] 3.4 g/dL [facility] Comment on above: Performed By: #### C BC, PTT, HEPATIC, BMP, LIPASE, PT #### [place] [id number] [place] Performed By: #### B MP, MG, CBC #### [facility] [address] [place] [address] Protein [Mass/Vol] 7.7 g/dL Normal 6.4-8.9 [facility] Comment on above: Performed By: #### C BC, PTT, HEPATIC, BMP, LIPASE, PT #### [facility] [address] [place] [address] Performed By: #### B MP, MG, CBC #### [address] INR in Platelet poor plasma by Coagulation assayOrdered By: Rabia Murrieta on 03-25-2023 INR Coag (PPP) [Relative time] 1.0 {INR} [facility] Comment on above: INR Therapeutic Rang e A) Pre- and Peroperative OAT started two weeks before surgery. NOT HIP SURGERY: 1.5 - 2.5 HIP SURGERY: 2 - 3B) Primary and secondary prevention of venous THROMBOSIS: 2 - 3C) Active venous thrombosis, pulmonary embolismand prevention of recurrent venous thrombosis: 2 - 3D) Prevention of arterial thromboembolismincluding patients with mechanical heart valves: 3 - 4.5 Ketones Auto test strip (U) [Mass/Vol]Ordered By: Rabia Murrieta on 03-25-2023 Ketones (U) [Mass/Vol] 1+ Negative [facility] Leukocytes [#/volume] correc james for nucleated erythrocytes in Blood by Automated counOrdered By: Rabia Murrieta on 03-25-2023 WBC corrected for nucl RBC Auto (Bld) [#/Vol] 11.1 10*3/uL 3.8-11.6 [facility] Lipaseon 03-25-2023 Lipase [Catalytic activity/Vol] 89.0 U/L High 11.0-82.0 [facility] Comment on above: Result Comment: PERF ORMED BY: [place] [address] PATHOLOGIST [employer] COUNSELOR SANDIE MAYES M.D. Performed By: #### C BC, PTT, HEPATIC, BMP, LIPASE, PT #### [address] [place] [address] [place] Performed By: #### B MP, MG, CBC #### [facility] [address] Lipase [Enzymatic activity/v olume] in Serum or PlasmaOrdered By: Rabia Murrieta on 03-25-2023 Lipase [Catalytic activity/Vol] 89.0 U/L 11.0-82.0 [facility] Lymphocytes Auto (Bld) [#/Vo l]Ordered By: Rabia Murrieta on 03-25-2023 Lymphocytes (Bld) [#/Vol] 0.5 10*3/uL 1.00-4.8 [facility] Lymphocytes/100 WBC Auto (Bl d)Ordered By: Rabia Murrieta on 03-25-2023 Lymphocytes/100 WBC (Bld) 4.9 % . [facility] MCH Auto (RBC) [Entitic mass ]Ordered By: Rabia Murrieta on 03-25-2023 MCH (RBC) [Entitic mass] 34.3 pg 24.7-34.3 [facility] MCHC Auto (RBC) [Mass/Vol]Or dered By: Rabia Murrieta on 03-25-2023 MCHC (RBC) [Mass/Vol] 34.4 g/dL 32.0-35.0 [facility] MCV Auto (RBC) [Entitic vol] Ordered By: Rabia Murrieta on 03-25-2023 MCV (RBC) [Entitic vol] 99.7 fL 80-100 [facility] Monocyte distribution width [Entitic volume] in Blood by AutomatedOrdered By: Rabia Murrieta on 03-25-2023 Monocyte distribution width Auto (Bld) [Entitic vol] 18.22 % 0.00-20.00 [facility] Monocytes Auto (Bld) [#/Vol] Ordered By: Rabia Murrieta on 03-25-2023 Monocytes (Bld) [#/Vol] 0.5 10*3/uL 0.0-0.8 [facility] Monocytes/100 WBC Auto (Bld) Ordered By: Rabia Murrieta on 03-25-2023 Monocytes/100 WBC (Bld) 4.9 % . [facility] Mucus LM Ql (Urine sed)Order ed By: Rabia Murrieta on 03-25-2023 Mucus Ql (Urine sed) 2+ [LPF] [facility] Neutrophils Auto (Bld) [#/Vo l]Ordered By: Rabia Murrieta on 03-25-2023 Neutrophils (Bld) [#/Vol] 10.0 10*3/uL 1.8-7.7 [facility] Neutrophils/100 WBC Auto (Bl d)Ordered By: Rabia Murrieta on 03-25-2023 Neutrophils/100 WBC (Bld) 89.9 % . [facility] Nitrite Test strip Ql (U)Ord ered By: Rabia Murrieta on 03-25-2023 Nitrite Ql (U) Negative Negative [facility] No Panel InformationOrdered By: Rabia Murrieta on 03-25-2023 Estimated GFR (CKD-EPI) > 60.0 mL/Min [facility] Creatinine Clearance (Chem 99.09 [facility] Nucleated erythrocytes [Pres ence] in Blood by Automated countOrdered By: Rabia Murrieta on 03-25-2023 Nucleated RBC Auto Ql (Bld) 0.2 /100{WBC} 0-0.5 [facility] Partial Thromboplastin Timeo n 03-25-2023 aPTT Coag (Bld) [Time] 29.8 s Normal 25.1-36.5 [facility] Comment on above: Result Comment: A he matocrit value greater than 55% may lead to inaccurate results in coagulation testing. Patients having hematocrit values >55% require a special collection tube for coagulation studies. Please contact the laboratory at [phone] for redraw instructions. PERFORMED BY: [place] [address] PATHOLOGIST [employer] COUNSELOR SANDIE MAYES M.D. Performed By: #### C BC, PTT, HEPATIC, BMP, LIPASE, PT #### [facility] [address] [place] [address] Performed By: #### B MP, MG, CBC #### [facility] [address] [place] [address] Platelet mean volume Auto (B ld) [Entitic vol]Ordered By: Rabia Murrieta on 03-25-2023 Platelet mean volume (Bld) [Entitic vol] 7.3 fL 6.3-10.7 [facility] Platelets Auto (Bld) [#/Vol] Ordered By: Rabia Murrieta on 03-25-2023 Platelets (Bld) [#/Vol] 291 10*3/uL 150-450 [facility] Potassium [Moles/volume] in Serum or PlasmaOrdered By: Rabia Murrieta on 03-25-2023 Potassium [Moles/Vol] 4.5 mmol/L 3.5-5.1 [facility] Protein Auto test strip (U) [Mass/Vol]Ordered By: Rabia Murrieta on 03-25-2023 Protein (U) [Mass/Vol] 30 mg/dL Negative [facility] Protein [Mass/volume] in Ser um or PlasmaOrdered By: Rabia Murrieta on 03-25-2023 Protein [Mass/Vol] 7.7 g/dL 6.4-8.9 [facility] Prothrombin Time INRon 03-25 INR Coag (PPP) [Relative time] 1.0 {INR} Normal [facility] Comment on above: Result Comment: INR Therapeutic Range A) Pre- and Peroperative OAT started two weeks before surgery. NOT HIP SURGERY: 1.5 - 2.5 HIP SURGERY: 2 - 3 B) Primary and secondary prevention of venous THROMBOSIS: 2 - 3 C) Active venous thrombosis, pulmonary embolism and prevention of recurrent venous thrombosis: 2 - 3 D) Prevention of arterial thromboembolism including patients with mechanical heart valves: 3 - 4.5 Performed By: #### C BC, PTT, HEPATIC, BMP, LIPASE, PT #### [facility] [address] [place] [id number] [place] Performed By: #### B MP, MG, CBC #### [facility] [address] [place] [address] [place] PT Coag (PPP) [Time] 11.7 s Normal 9.0-12.9 [facility] Comment on above: Result Comment: A he matocrit value greater than 55% may lead to inaccurate results in coagulation testing. Patients having hematocrit values >55% require a special collection tube for coagulation studies. Please contact the laboratory at [phone] for redraw instructions. Performed By: #### C BC, PTT, HEPATIC, BMP, LIPASE, PT #### [facility] [address] [place] [address] [place] Performed By: #### B MP, MG, CBC #### [facility] [address] [place] [id number] [place] Prothrombin time (PT)Ordered By: Rabia Murrieta on 03-25-2023 PT Coag (PPP) [Time] 11.7 s 9.0-12.9 [facility] Comment on above: A hematocrit value g reater than 55% may lead to inaccurate results in coagulation testing. Patients having hematocrit values >55% require a special collection tube for coagulation studies. Please contact the laboratory at [phone] for redraw instructions. RBC Auto (Bld) [#/Vol]Ordere d By: Rabia Murrieta on 03-25-2023 RBC (Bld) [#/Vol] 4.66 10*6/uL 3.60-5.00 [facility] Serum or plasma albumin/glob ulin mass ratioOrdered By: Rabia Murrieta on 03-25-2023 Albumin/Globulin [Mass ratio] 1.3 {ratio} [facility] Serum or plasma anion gap de terminationOrdered By: Rabia Murrieta on 03-25-2023 Anion gap [Moles/Vol] 22.6 mmol/L 6.0-15.0 [facility] Serum or plasma non-glucuron idated bilirubin measurement (mass/volume)Ordered By: Rabia Murrieta on 03-25-2023 Bilirubin.indirect [Mass/Vol] 1.6 mg/dL [facility] Sodium [Moles/volume] in Ser um or PlasmaOrdered By: Rabia Murrieta on 03-25-2023 Sodium [Moles/Vol] 141 mmol/L 136-145 [facility] Specific gravity Auto test s trip (U) [Rel density]Ordered By: Rabia Murrieta on 03-25-2023 Specific gravity (U) [Rel density] 1.027 1.001-1.03 0 [facility] Squamous epithelial cells de tection in urine sediment by light microscopyOrdered By: Rabia Murrieta on 03-25-2023 Epithelial cells.squamous LM Ql (Urine sed) 10-19 [HPF] 0-2 [facility] US gall bladderon 03-25-2023 US gall bladder [facility] [place] [address] Ultrasound Report Signed Patient: Christina Wallace MR#: [id number] 84 : 1995 Acct:[id number] Age/Sex: 27 / F ADM Date: 03/25/23 Loc: ER Room: Type: [facility] ER Attending Dr: Ordering Provider: Rabia Murrieta DO Date of Service: 03/25/23 US/US gall bladder: ruq pain Copies to: Rabia Murrieta DO Gallbladder ultrasound HISTORY: Abdominal pain and vomiting for a few months. COMPARISON: None Negative ultrasound Tidwell's sign reported. COMMON BILE DUCT: Normal caliber. No intraluminal abnormality. LIVER CONTOUR: Normal. LIVER PARENCHYMA: Hepatic steatosis. HEPATIC LESION: There is a hypoechoic anechoic lesion with thick echogenic rim on the right measuring up to 15 mm. INTRAHEPATIC BILIARY DUCTAL DILATATION No ductal dilatation identified. GALLSTONES: No shadowing gallstones. GALLBLADDER SLUDGE: No gallbladder sludge. GALLBLADDER WALL: Normal thickness PERICHOLECYSTIC FLUID: None Pancreas: Not well seen. PORTAL VEIN: Normal blood flow. Liver size: Normal No RIGHT hydronephrosis identified. US/US gall bladder IMPRESSION: Unremarkable gallbladder. No biliary duct dilatation. Potential thick-walled cystic lesion of the right hepatic lobe. May consider further assessment with contrasted CT of abdomen. Impression dictated by: Adair Rodríguez M.D.03/25/2023 8:38 PM Dictation Location: [place] [address] Tech: Tiffany Day Transcribed By: [facility] 03/25/232037 Dictated By: Adair Rodríguez DO 03/25/232034 Signed By: 03/25/232037 Normal [facility] US gall bladder [facility] Main [place] [id number] Ultrasound Report Signed Patient: Christina Wallace MR#: [id number] 85 : 1995 Acct:[id number] Age/Sex: 27 / F ADM Date: 03/25/23 Loc: ER Room: Type: [facility] ER Attending Dr: Ordering Provider: Rabia Murrieta DO Date of Service: 03/25/23 US/US gall bladder: ruq pain Copies to: Rabia Murrieta DO Gallbladder ultrasound HISTORY: Abdominal pain and vomiting for a few months. COMPARISON: None Negative ultrasound Tidwell's sign reported. COMMON BILE DUCT: Normal caliber. No intraluminal abnormality. LIVER CONTOUR: Normal. LIVER PARENCHYMA: Hepatic steatosis. HEPATIC LESION: There is a hypoechoic anechoic lesion with thick echogenic rim on the right measuring up to 15 mm. INTRAHEPATIC BILIARY DUCTAL DILATATION No ductal dilatation identified. GALLSTONES: No shadowing gallstones. GALLBLADDER SLUDGE: No gallbladder sludge. GALLBLADDER WALL: Normal thickness PERICHOLECYSTIC FLUID: None Pancreas: Not well seen. PORTAL VEIN: Normal blood flow. Liver size: Normal No RIGHT hydronephrosis identified. US/US gall bladder IMPRESSION: Unremarkable gallbladder. No biliary duct dilatation. Potential thick-walled cystic lesion of the right hepatic lobe. May consider further assessment with contrasted CT of abdomen. Impression dictated by: Adair Rodríguez M.D.03/25/2023 8:38 PM Dictation Location: [place] [address] Tech: Tiffany Hernandezkristi Transcribed By: SUSY 03/25/232037 Dictated By: Adair Rodríguez DO 03/25/232034 Signed By: 03/25/232037 Normal [facility] Urea nitrogen [Mass/volume] in Serum or PlasmaOrdered By: Rabia Murrieta on 03-25-2023 Urea nitrogen [Mass/Vol] 6 mg/dL 7-25 [facility] Urine Cultureon 03-25-2023 Bacteria identified Cx Nom (U) ORGANISM: Escherichia coli (O:ESCCOL) [place] Count 40,000 Aerobic ALCIDES Charge (NMIC56) SUSCEPTIBILITY ORGANISM: O:ESCCOL ANTIBIOTIC INTERPRETATION ALCIDES Amikacin S <16 Amoxacillin/K Clavulanate S <8 Ampicillin S <8 Ampicillin/Sulbactam S <4 Aztreonam S <4 Cefazolin S <2 Cefepime S <2 Ceftazidime S <1 Ceftazidime/Avibactam S <4 Ceftolozane/Tazobactam S <2 Ceftriaxone S <1 Cefuroxime S <4 Ciprofloxacin S <0.25 Ertapenem S <0.5 Gentamicin S <2 Levofloxacin S <0.5 Meropenem S <1 Meropenem/Vaborbactam S <2 Nitrofurantoin S <32 Piperacillin/Tazobactam S <8 Tetracycline S <4 Tigecycline S <2 Tobramycin S <2 Trimethoprim/Sulfamethoxa zole S <0.5 S = SUSCEPTIBLE I = INTERMEDIATE R = RESISTANT BLANK = DATA NOT AVAILABLE, OR DRUG NOT ADVISABLE OR TESTED R* = RESISTANCE DUE TO EXTENDED SPECTRUM BETA-LACTAMASES ESBL = EXTENDED SPECTRUM BETA-LACTAMASE TFG = THYMIDINE-DEPENDENT STRAIN ALFONZO = BETA-LACTAMASE POSITIVE IB = INDUCIBLE BETA-LACTAMASE. APPEARS IN PLACE OF 'S' WITH SPECIES KNOWN TO POSSESS INDUCIBLE BETA-LACTAMASES. POTENTIALLY THEY MAY BECOME RESISTANT TO ALL B-LACTAM DRUGS. PERFORMED BY: [place] [address] PATHOLOGIST [employer] COUNSELOR SANDIE MAYES M.D. [facility] Comment on above: Performed By: #### C BC, PTT, HEPATIC, BMP, LIPASE, PT #### [facility] [address] [place] [address] Performed By: #### B MP, MG, CBC #### [facility] [address] [place] [address] Urine bacteria detection by automated methodOrdered By: Rabia Murrieta on 03-25-2023 Bacteria Auto Ql (U) 2+ None Seen [facility] Urine clarity by refractomet ry automatedOrdered By: Rabia Murrieta on 03-25-2023 Clarity Refractometry automated (U) Cloudy Clear [facility] Urine culture routineOrdered By: Rabia Murrieta on 03-25-2023 Bacteria identified Cx Nom (U) Escherichia coli [facility] Urine glucose measurement by automated test strip (mass/volume)Ordered By: Rabia Murrieta on 03-25-2023 Glucose Auto test strip (U) [Mass/Vol] Normal mg/dL Normal [facility] Urine hemoglobin detection b y automated test stripOrdered By: Rabia Murrieta on 03-25-2023 Hemoglobin Auto test strip Ql (U) Negative Negative [facility] Urine leukocyte esterase det ection by automated test stripOrdered By: Rabia Murrieta on 03-25-2023 Leukocyte esterase Auto test strip Ql (U) 1+ Negative [facility] Urobilinogen Auto test strip (U) [Mass/Vol]Ordered By: Rabia Murrieta on 03-25-2023 Urobilinogen (U) [Mass/Vol] Normal mg/dL Normal [facility] WBC Auto (Bld) [#/Vol]Ordere d By: Rabia Murrieta on 03-25-2023 WBC (Bld) [#/Vol] 11.1 10*3/uL 3.8-11.6 [facility] pH Auto test strip (U)Ordere d By: Rabia Murrieta on 03-25-2023 pH (U) 6.0 [pH] 5.0-9.0 [facility] Quick Strepon 02-24-2023 S. pyogenes Org specific cx Ql (Throat) Negative [address] Other Quick Strep [address] Other SARS-CoV-2 (COVID-19) RNA NA A+probe Ql (Resp)on 02-24-2023 SARS-CoV-2 (COVID-19) RNA IAN+probe Ql (Unsp spec) Negative [address] Other COVID + FLU Quick Testingon 12-02-2022 SARS-CoV-2 (COVID-19) RNA IAN+probe Ql (Unsp spec) Negative [address] Other COVID + FLU Quick Testing Negative [address] Other Quick Strepon 12-02-2022 S. pyogenes Org specific cx Ql (Throat) Negative [address] Other Quick Strep [address] Other CBC AUTO DIFFon 08-21-2022 BASO # 0.1 103/ul Normal 0.0-0.1 [facility] Comment on above: Performed By: #### C BC #### [facility] [address] [place] [address] Dr. Alexia Gallagher Basophils/100 WBC (Bld) 0.4 % Normal 0.2-2.0 [facility] Comment on above: Performed By: #### C BC #### [facility] [address] [place] [address] Dr. Alexia Gallagher EO # 0.0 103/ul Normal 0.0-0.7 [facility] Comment on above: Performed By: #### C BC #### [facility] [address] [place] [address] Dr. Alexia Gallagher Eosinophils/100 WBC (Bld) 0.1 % Critically low 0.9-7.0 [facility] Comment on above: Performed By: #### C BC #### [facility] [address] [place] [address] Dr. Alexia Gallagher Erythrocyte distribution width (RBC) [Ratio] 12.8 % Normal 11.0-15.0 [facility] Comment on above: Performed By: #### C BC #### [facility] [address] [place] [address] Dr. Alexia Gallagher Hematocrit (Bld) [Volume fraction] 47.3 % Normal 36.0-48.0 [facility] Comment on above: Performed By: #### C BC #### [facility] [address] [place] [address] Dr. Alexia Gallagher Hemoglobin (Bld) [Mass/Vol] 16.0 g/dL Normal 12.0-16.0 [facility] Comment on above: Performed By: #### C BC #### [facility] [address] [place] [address] Dr. Alexia Gallagher IG # 0.06 10e3/ul Critically high 0.00-0.03 [facility] Comment on above: Performed By: #### C BC #### [facility] [address] [place] [address] Dr. Alexia Gallagher IG % 0.4 % Normal 0.0-0.5 [facility] Comment on above: Performed By: #### C BC #### [facility] [address] [place] [address] [address] Alexia Gallagher LYMPH # 0.8 103/ul Critically low 1.2-3.8 [facility] Comment on above: Performed By: #### C BC #### [facility] [address] [place] [address] [address] Alexia Gallagher Lymphocytes/100 WBC (Bld) 5.1 % Critically low 20.5-60.0 [facility] Comment on above: Performed By: #### C BC #### [facility] [address] [place] [address] Dr. Alexia Gallagher MANUAL DIFF REQ NO Normal [facility] Comment on above: Performed By: #### C BC #### [facility] [address] [place] [address] Dr. Alexia Gallagher MCH (RBC) [Entitic mass] 33.0 pg Normal 26.7-34.0 [facility] Comment on above: Performed By: #### C BC #### [facility] [address] [place] [address] Dr. Alexia Gallagher MCHC (RBC) [Mass/Vol] 33.8 g/dL Normal 29.9-35.2 [facility] Comment on above: Performed By: #### C BC #### [facility] [address] [place] [address] Dr. Alexia Gallagher MCV (RBC) [Entitic vol] 97.5 fL Normal 81.0-99.0 [facility] Comment on above: Performed By: #### C BC #### [facility] [address] [place] [address] [address] Alexia Gallagher MONO # 1.0 103/ul Critically high 0.3-0.8 [facility] Comment on above: Performed By: #### C BC #### [facility] [address] [place] [address] Dr. Alexia Gallagher Monocytes/100 WBC (Bld) 6.4 % Normal 1.7-12.0 [facility] Comment on above: Performed By: #### C BC #### [facility] [address] [place] [address] [address] Alexia Gallagher NEUT # 14.3 103/ul Critically high 1.4-6.5 [facility] Comment on above: Performed By: #### C BC #### [facility] [address] [place] [address] [address] Alexia Gallagher Neutrophils/100 WBC (Bld) 87.6 % Critically high 43.0-75.0 [facility] Comment on above: Performed By: #### C BC #### [facility] [address] [place] [address] [address] Alexia Gallagher Platelet mean volume (Bld) [Entitic vol] 9.4 fL Critically low 9.5-13.5 [facility] Comment on above: Performed By: #### C BC #### [facility] [address] [place] [address] [address] Alexia Gallagher PLT 215 103/ul Normal 150-450 [facility] Comment on above: Performed By: #### C BC #### [facility] [address] [place] [address] [address] Alexia Gallagher RBC 4.85 106/ul Normal 4.20-5.40 [facility] Comment on above: Performed By: #### C BC #### [facility] [address] [place] [address] Dr. Alexia Gallagher WBC 16.3 103/ul Critically high 4.0-11.0 [facility] Comment on above: Performed By: #### C BC #### [facility] [address] [place] [address] [address] Alexia Gallagher Covid-19 PCR (CVDTB)on SARS-CoV-2 (COVID-19) RNA IAN+probe Ql (Unsp spec) Not detected Normal NOT DETECTED [facility] Comment on above: Result Comment: This test is not yet approved or cleared by the [place] FDA. When there are no FDA-approved or cleared tests available, and other criteria are met, FDA can make tests available under an emergency access mechanism called an Emergency Use Authorization (EUA). The EUA for this test is supported by the [place] of Health and Human Service's (HHS's) declaration that circumstances exist to justify the emergency use of in vitro diagnostics for the detection and/or diagnosis of the virus that causes COVID-19. This EUA will remain in effect (meaning this test can be used) for the duration of the COVID-19 declaration justifying emergency of IVDs, unless it is terminated or revoked by FDA (after which the test may no longer be used). When diagnostic testing is negative, the possibility of a false negative should be considered in the context of a patient's recent exposures and the presence of clinical signs and symptoms consistent with SARS-CoV-2. Performed By: #### C VDTB #### [facility] [address] [place] [address] Dr. Alexia Gallagher ER URINE PROFILEon 3 Bilirubin Ql (U) Negative Normal NEGATIVE [facility] Comment on above: Performed By: #### E RUR #### [facility] [address] [place] [address] Dr. Alexia Gallagher Clarity (U) CLEAR Normal CLEAR [facility] Comment on above: Performed By: #### E RUR #### [facility] [address] [place] [address] Dr. Alexia Gallagher Color (U) YELLOW Normal YELLOW [facility] Comment on above: Performed By: #### E RUR #### [facility] [address] [place] [address] Dr. Alexia Gallagher ERUAHD A micrscopic examina tion will be performed if indicated. Normal [facility] Comment on above: Performed By: #### E RUR #### [facility] [address] [place] [address] Dr. Alexia Gallagher Glucose Ql (U) Negative Normal NEGATIVE [facility] Comment on above: Performed By: #### E RUR #### [facility] [address] [place] [address] Dr. Alexia Gallagher Hemoglobin Ql (U) Negative Normal NEGATIVE [facility] Comment on above: Performed By: #### E RUR #### [facility] [address] [place] [address] Dr. Alexia Gallagher Ketones Ql (U) TRACE Abnormal NEGATIVE [facility] Comment on above: Performed By: #### E RUR #### [facility] [address] [place] [address] Dr. Alexia Gallagher LEUKOCYTES Negative Normal NEGATIVE [facility] Comment on above: Performed By: #### E RUR #### [facility] [address] [place] [address] Dr. Alexia Gallagher Nitrite Ql (U) Negative Normal NEGATIVE [facility] Comment on above: Performed By: #### E RUR #### [facility] [address] [place] [address] Dr. Alexia Gallagher pH (U) 8.5 [pH] Normal 5-9 [facility] Comment on above: Performed By: #### E RUR #### [facility] [address] [place] [address] Dr. Alexia Gallagher SPEC GRAVITY 1.010 Normal 1.005-<=1. 025 [facility] Comment on above: Performed By: #### E RUR #### [facility] [address] [place] [address] Dr. Alexia Gallagher UA PROTEIN TRACE Normal NEGATIVE/ TRACE [facility] Comment on above: Performed By: #### E RUR #### [facility] [address] [place] [address] Dr. Alexia Gallagher UR MICRO IND NOT INDICATED Normal [facility] Comment on above: Performed By: #### E RUR #### [facility] [address] [place] [address] Dr. Alexia Gallagher Urobilinogen Qn (U) 1.0 {Gilberto'U}/dL Normal 0.2 - 1. 0 [facility] Comment on above: Performed By: #### E RUR #### [facility] [address] [place] [address] Dr. Alexia Gallagher INFLUENZA A AND B AGon 08-21 INFLUANEGH SEE BELOW Normal [facility] Comment on above: Result Comment: Nega tive for Flu A protein angiten. Infection due to Flu A cannot be ruled out. Flu A angiten in the sample may be below the detection limit of the test. Performed By: #### I NFLUAB #### [facility] [address] [place] [address] Dr. Alexia Gallagher INFLUBNEGH SEE BELOW Normal [facility] Comment on above: Result Comment: Nega tive for Flu B protein antigen. Infection due to Flu B cannot be ruled out. Flu B antigen in the sample may be below the detection limit of the test. Performed By: #### I NFLUAB #### [facility] [address] [place] [address] Dr. Alexia Gallagher INFLUENZA A AG Negative Normal NEGATIVE SEE COMMENT [facility] Comment on above: Performed By: #### I NFLUAB #### [facility] [address] [place] [address] Dr. Alexia Gallagher INFLUENZA B AG Negative Normal NEGATIVE SEE COMMENT [facility] Comment on above: Performed By: #### I NFLUAB #### [facility] [address] [place] [address] Dr. Alexia Gallagher LIPASEon 08-21-2022 Lipase [Catalytic activity/Vol] 96.0 U/L Normal 73.0-393.0 [facility] Comment on above: Performed By: #### C MP, LIPA #### [facility] [address] [place] [address] Dr. Alexia Gallagher PREG HCG QUALon 08-21-2022 , QUAL Negative Normal NEGATIVE [facility] Comment on above: Performed By: #### P REG #### [facility] [address] [place] [address] Dr. Alexia Gallagher PROF 14(COMP METB)on 023 Albumin [Mass/Vol] 4.1 g/dL Normal 3.4-5.0 [facility] Comment on above: Performed By: #### C MP, LIPA #### [facility] [address] [place] [address] Dr. Alexia Gallagher Albumin/Globulin [Mass ratio] 1.0 {ratio} Normal [facility] Comment on above: Performed By: #### C MP, LIPA #### [facility] [address] [address] [address] Alexia Gallagher ALP [Catalytic activity/Vol] 97 U/L Normal 46-116 [facility] Comment on above: Performed By: #### C MP, LIPA #### [facility] [address] [address] [address] Alexia Gallagher ALT [Catalytic activity/Vol] 109 U/L Critically high 14-59 [facility] Comment on above: Performed By: #### C MP, LIPA #### [facility] [address] [address] [address] Alexia Gallagher Anion gap [Moles/Vol] 18.3 mmol/L Normal [facility] Comment on above: Performed By: #### C MP, LIPA #### [facility] [address] [place] [address] Dr. Alexia Gallagher AST [Catalytic activity/Vol] 101 U/L Critically high 15-37 [facility] Comment on above: Performed By: #### C MP, LIPA #### [facility] [address] [address] [address] Alexia Gallagher Bilirubin [Mass/Vol] 2.3 mg/dL Critically high 0.2-1.0 [facility] Comment on above: Performed By: #### C MP, LIPA #### [facility] [address] [address] [address] Alexia Gallagher Calcium [Mass/Vol] 9.6 mg/dL Normal 8.5-10.1 [facility] Comment on above: Performed By: #### C MP, LIPA #### [facility] [address] [place] [address] Dr. Alexia Gallagher Chloride [Moles/Vol] 100 mmol/L Normal 98-107 [facility] Comment on above: Performed By: #### C MP, LIPA #### [facility] [address] [address] [address] Alexia Gallagher CO2 [Moles/Vol] 25.9 mmol/L Normal 21.0-32.0 [facility] Comment on above: Performed By: #### C MP, LIPA #### [facility] [address] [place] [address] Dr. Alexia Gallagher Creatinine [Mass/Vol] 0.93 mg/dL Normal 0.55-1.02 [facility] Comment on above: Performed By: #### C MP, LIPA #### [facility] [address] [place] [address] Dr. Alexia Gallagher EGFR-AF SAMOAN >60 Normal >=60 [facility] Comment on above: Performed By: #### C MP, LIPA #### [facility] [address] [place] [address] Dr. Alexia Gallagher EGFR-NON AF SAMOAN >60 Normal >=60 [facility] Comment on above: Performed By: #### C MP, LIPA #### [facility] [address] [place] [address] Dr. Alexia Gallagher Globulin (S) [Mass/Vol] 4.0 g/dL Normal [facility] Comment on above: Performed By: #### C MP, LIPA #### [facility] [address] [place] [address] Dr. Alexia Gallagher Glucose [Mass/Vol] 108 mg/dL Critically high 74-106 [facility] Comment on above: Performed By: #### C MP, LIPA #### [facility] [address] [place] [address] Dr. Alexia Gallagher Potassium [Moles/Vol] 4.2 mmol/L Normal 3.5-5.1 [facility] Comment on above: Performed By: #### C MP, LIPA #### [facility] [address] [place] [address] Dr. Alexia Gallagher Protein [Mass/Vol] 8.1 g/dL Normal 6.4-8.2 [facility] Comment on above: Performed By: #### C MP, LIPA #### [facility] [address] [place] [address] Dr. Alexia Gallagher Sodium [Moles/Vol] 140 mmol/L Normal 136-145 [facility] Comment on above: Performed By: #### C MARLIN, LIPA #### [facility] [address] [place] [address] Dr. Alexia Gallagher Urea nitrogen [Mass/Vol] 6.0 mg/dL Critically low 7.0-18.0 [facility] Comment on above: Performed By: #### C MARLIN, LIPA #### [facility] [address] [place] [address] Dr. Alexia Gallagher Urea nitrogen/Creatinine [Mass ratio] 6.5 mg/mg Normal [facility] Comment on above: Performed By: #### C MARLIN, LIPA #### [facility] [address] [place] [address] Dr. Alexia Gallagher SYMPTOMATIC COVID-19 ANTIGEN on 08-21-2022 EUA Statement SEE BELOW Normal [facility] Comment on above: Result Comment: This test has not been FDA cleared or approved, but has been authorized by the FDA under an Emergency Use Authorization (EUA) for use by authorized laboratories certified under CLIA that meet the requirements to perform moderate or high complexity testing. This test has been authorized only for the detection of proteins from SARS-CoV-2, not for any other viruses or pathogens. The emergency use of this test is authorized for the duration of the declaration that circumstances exist justifying the authorization of emergency use of in vitro diagnostic tests for detection and/or diagnosis of Covid-19 under section 564(b)(1) of the Act, 21 U.S.C. 360bbb-3(b)(1), unless the declaration is terminated or authorization is revoked sooner. Performed By: #### C VDAGS #### [facility] [address] [place] [address] Dr. Alexia Gallagher SARS-CoV-2 (COVID-19) RNA IAN+probe Ql (Unsp spec) Negative Normal NEGATIVE [facility] Comment on above: Performed By: #### C VDAGS #### [facility] [address] [place] [address] Dr. Alexia Gallagher CBC AUTO DIFFon 02-22-2022 BASO # 0.1 103/ul Normal 0.0-0.1 [facility] Comment on above: Performed By: #### C MP, LIPA #### [facility] [address] [place] [address] Dr. Alexia Gallagher Basophils/100 WBC (Bld) 0.4 % Normal 0.2-2.0 [facility] Comment on above: Performed By: #### C MP, LIPA #### [facility] [address] [place] [address] Dr. Alexia Gallagher EO # 0.0 103/ul Normal 0.0-0.7 [facility] Comment on above: Performed By: #### C MP, LIPA #### [facility] [address] [place] [address] Dr. Alexia Gallagher Eosinophils/100 WBC (Bld) 0.0 % Critically low 0.9-7.0 [facility] Comment on above: Performed By: #### C MP, LIPA #### [facility] [address] [place] [address] Dr. Alexia Gallagher Erythrocyte distribution width (RBC) [Ratio] 12.9 % Normal 11.0-15.0 [facility] Comment on above: Performed By: #### C MP, LIPA #### [facility] [address] [place] [address] Dr. Alexia Gallagher Hematocrit (Bld) [Volume fraction] 47.4 % Normal 36.0-48.0 [facility] Comment on above: Performed By: #### C MP, LIPA #### [facility] [address] [place] [address] Dr. Alexia Gallagher Hemoglobin (Bld) [Mass/Vol] 15.5 g/dL Normal 12.0-16.0 [facility] Comment on above: Performed By: #### C MP, LIPA #### [facility] [address] [place] [address] Dr. Alexia Gallagher IG # 0.08 10e3/ul Critically high 0.00-0.03 [facility] Comment on above: Performed By: #### C MP, LIPA #### [facility] [address] [address] [address] Alexia Gallagher IG % 0.6 % Critically high 0.0-0.5 [facility] Comment on above: Performed By: #### C MP, LIPA #### [facility] [address] [place] [address] Dr. Alexia Gallagher LYMPH # 0.7 103/ul Critically low 1.2-3.8 [facility] Comment on above: Performed By: #### C MP, LIPA #### [facility] [address] [place] [address] Dr. Alexia Gallagher Lymphocytes/100 WBC (Bld) 4.9 % Critically low 20.5-60.0 [facility] Comment on above: Performed By: #### C MP, LIPA #### [facility] [address] [place] [address] Dr. Alexia Gallagher MANUAL DIFF REQ NO Normal [facility] Comment on above: Performed By: #### C MP, LIPA #### [facility] [address] [place] [address] Dr. Alexia Gallagher MCH (RBC) [Entitic mass] 32.6 pg Normal 26.7-34.0 [facility] Comment on above: Performed By: #### C MP, LIPA #### [facility] [address] [place] [address] Dr. Alexia Gallagher MCHC (RBC) [Mass/Vol] 32.7 g/dL Normal 29.9-35.2 [facility] Comment on above: Performed By: #### C MP, LIPA #### [facility] [address] [place] [address] Dr. Alexia Gallagher MCV (RBC) [Entitic vol] 99.6 fL Critically high 81.0-99.0 [facility] Comment on above: Performed By: #### C MP, LIPA #### [facility] [address] [place] [address] Dr. Alexia Gallagher MONO # 0.4 103/ul Normal 0.3-0.8 [facility] Comment on above: Performed By: #### C MP, LIPA #### [facility] [address] [place] [address] Dr. Alexia Gallagher Monocytes/100 WBC (Bld) 3.0 % Normal 1.7-12.0 [facility] Comment on above: Performed By: #### C MP, LIPA #### [facility] [address] [place] [address] Dr. Alexia Gallagher NEUT # 12.2 103/ul Critically high 1.4-6.5 [facility] Comment on above: Performed By: #### C MP, LIPA #### [facility] [address] [place] [address] Dr. Alexia Gallagher Neutrophils/100 WBC (Bld) 91.1 % Critically high 43.0-75.0 [facility] Comment on above: Performed By: #### C MP, LIPA #### [facility] [address] [place] [address] Dr. Alexia Gallagher Platelet mean volume (Bld) [Entitic vol] 9.7 fL Normal 9.5-13.5 [facility] Comment on above: Performed By: #### C MP, LIPA #### [facility] [address] [place] [address] Dr. Alexia Gallagher PLT 265 103/ul Normal 150-450 [facility] Comment on above: Performed By: #### C MP, LIPA #### [facility] [address] [place] [address] Dr. Alexia Gallagher RBC 4.76 106/ul Normal 4.20-5.40 [facility] Comment on above: Performed By: #### C MP, LIPA #### [facility] [address] [place] [address] Dr. Alexia Gallagher WBC 13.4 103/ul Critically high 4.0-11.0 [facility] Comment on above: Performed By: #### C MP, LIPA #### [facility] [address] [place] [address] Dr. Alexia Gallagher ER URINE PROFILEon 2 Bilirubin Ql (U) Negative Normal NEGATIVE [facility] Comment on above: Performed By: #### U MICRO, PREGU, ERUR #### [facility] [address] [address] [address] Alexia Gallagher Clarity (U) CLEAR Normal CLEAR [facility] Comment on above: Performed By: #### U MICRO, PREGU, ERUR #### [facility] [address] [address] [address] Alexia Gallagher Color (U) YELLOW Normal YELLOW [facility] Comment on above: Performed By: #### U MICRO, PREGU, ERUR #### [facility] [address] [address] [address] Alexia Gallagher ERUAHD A micrscopic examina tion will be performed if indicated. Normal [facility] Comment on above: Performed By: #### U MICRO, PREGU, ERUR #### [facility] [address] [address] [address] Alexia Gallagher Glucose Ql (U) Negative Normal NEGATIVE [facility] Comment on above: Performed By: #### U MICRO, PREGU, ERUR #### [facility] [address] [address] [address] Alexia Gallagher Hemoglobin Ql (U) TRACE-INTACT Abnormal NEGATIVE [facility] Comment on above: Performed By: #### U MICRO, PREGU, ERUR #### [facility] [address] [address] [address] Alexia Gallagher Ketones Ql (U) 15 mg/dl Abnormal NEGATIVE [facility] Comment on above: Performed By: #### U MICRO, PREGU, ERUR #### [facility] [address] [address] [address] Alexia Gallagher LEUKOCYTES Negative Normal NEGATIVE [facility] Comment on above: Performed By: #### U MICRO, PREGU, ERUR #### [facility] [address] [address] [address] Alexia Gallagher Nitrite Ql (U) Negative Normal NEGATIVE [facility] Comment on above: Performed By: #### U MICRO, PREGU, ERUR #### [facility] [address] [address] [address] Alexia Gallagher pH (U) 5.5 [pH] Normal 5-9 [facility] Comment on above: Performed By: #### U MICRO, PREGU, ERUR #### [facility] [address] [place] [address] Dr. Alexia Gallagher SPEC GRAVITY 1.030 Abnormal 1.005-<=1. 025 [facility] Comment on above: Performed By: #### U MICRO, PREGU, ERUR #### [facility] [address] [place] [address] Dr. Alexia Gallagher UA PROTEIN TRACE Normal NEGATIVE/ TRACE [facility] Comment on above: Performed By: #### U MICRO, PREGU, ERUR #### [facility] [address] [place] [address] Dr. Alexia Gallagher UR MICRO IND INDICATED Normal [facility] Comment on above: Performed By: #### U MICRO, PREGU, ERUR #### [facility] [address] [place] [address] Dr. Alexia Gallagher Urobilinogen Qn (U) 0.2 {Gilberto'U}/dL Normal 0.2 - 1. 0 [facility] Comment on above: Performed By: #### U MICRO, PREGU, ERUR #### [facility] [address] [place] [address] Dr. Alexia Gallagher LIPASEon 02-22-2022 Lipase [Catalytic activity/Vol] 160.0 U/L Normal 73.0-393.0 [facility] Comment on above: Performed By: #### C MP, LIPA #### [facility] [address] [place] [address] Dr. Alexia Gallagher URon 02-22-2022 , QUAL Negative Normal NEGATIVE [facility] Comment on above: Performed By: #### U MICRO, PREGU, ERUR #### [facility] [address] [place] [address] Dr. Alexia Gallagher PROF 14(COMP METB)on 022 Albumin [Mass/Vol] 4.2 g/dL Normal 3.4-5.0 [facility] Comment on above: Performed By: #### C MP, LIPA #### [facility] [address] [address] [address] Alexia Gallagher Albumin/Globulin [Mass ratio] 1.0 {ratio} Normal [facility] Comment on above: Performed By: #### C MP, LIPA #### [facility] [address] [address] [address] Alexia Gallagher ALP [Catalytic activity/Vol] 70 U/L Normal 46-116 [facility] Comment on above: Performed By: #### C MP, LIPA #### [facility] [address] [address] [address] Alexia Gallagher ALT [Catalytic activity/Vol] 121 U/L Critically high 14-59 [facility] Comment on above: Performed By: #### C MP, LIPA #### [facility] [address] [address] [address] Alexia Gallagher Anion gap [Moles/Vol] 24.3 mmol/L Normal [facility] Comment on above: Performed By: #### C MP, LIPA #### [facility] [address] [address] [address] Alexia Gallagher AST [Catalytic activity/Vol] 115 U/L Critically high 15-37 [facility] Comment on above: Performed By: #### C MP, LIPA #### [facility] [address] [address] [address] Alexia Gallagher Bilirubin [Mass/Vol] 1.4 mg/dL Critically high 0.2-1.0 [facility] Comment on above: Performed By: #### C MP, LIPA #### [facility] [address] [address] [address] Alexia Gallagher Calcium [Mass/Vol] 9.7 mg/dL Normal 8.5-10.1 [facility] Comment on above: Performed By: #### C MP, LIPA #### [facility] [address] [address] [address] Alexia Gallagher Chloride [Moles/Vol] 100 mmol/L Normal 98-107 [facility] Comment on above: Performed By: #### C MP, LIPA #### [facility] [address] [place] [address] Dr. Alexia Gallagher CO2 [Moles/Vol] 18.8 mmol/L Critically low 21.0-32.0 [facility] Comment on above: Performed By: #### C MP, LIPA #### [facility] [address] [place] [address] Dr. Alexia Gallagher Creatinine [Mass/Vol] 0.88 mg/dL Normal 0.55-1.02 [facility] Comment on above: Performed By: #### C MP, LIPA #### [facility] [address] [place] [address] Dr. Alexia Gallagher EGFR-AF SAMOAN >60 Normal >=60 [facility] Comment on above: Performed By: #### C MP, LIPA #### [facility] [address] [place] [address] Dr. Alexia Gallagher EGFR-NON AF SAMOAN >60 Normal >=60 [facility] Comment on above: Performed By: #### C MP, LIPA #### [facility] [address] [place] [address] Dr. Alexia Gallagher Globulin (S) [Mass/Vol] 4.0 g/dL Normal [facility] Comment on above: Performed By: #### C MP, LIPA #### [facility] [address] [place] [address] Dr. Alexia Gallagher Glucose [Mass/Vol] 55 mg/dL Critically low 74-106 [facility] Comment on above: Performed By: #### C MP, LIPA #### [facility] [address] [place] [address] Dr. Alexia Gallagher Potassium [Moles/Vol] 5.1 mmol/L Normal 3.5-5.1 [facility] Comment on above: Performed By: #### C MP, LIPA #### [facility] [address] [place] [address] Dr. Alexia Gallagher Protein [Mass/Vol] 8.2 g/dL Normal 6.4-8.2 [facility] Comment on above: Performed By: #### C MP, LIPA #### [facility] [address] [place] [address] Dr. Alexia Gallagher Sodium [Moles/Vol] 138 mmol/L Normal 136-145 [facility] Comment on above: Performed By: #### C MP, LIPA #### [facility] [address] [place] [address] Dr. Alexia Gallagher Urea nitrogen [Mass/Vol] 9.0 mg/dL Normal 7.0-18.0 [facility] Comment on above: Performed By: #### C MP, LIPA #### [facility] [address] [place] [address] Dr. Alexia Gallagher Urea nitrogen/Creatinine [Mass ratio] 10.2 mg/mg Normal [facility] Comment on above: Performed By: #### C MP, LIPA #### [facility] [address] [place] [address] Dr. Alexia Gallagher URINE MICROSCOPIC ONLYon BACTERIA NONE SEEN Normal NONE SEEN [facility] Comment on above: Performed By: #### C MP, LIPA #### [facility] [address] [place] [address] Dr. Alexia Gallagher Bacteria identified Cx Nom (U) NOT INDICATED Normal [facility] Comment on above: Performed By: #### C MP, LIPA #### [facility] [address] [place] [address] Dr. Alexia Gallagher CAST NONE SEEN Normal NONE SEEN [facility] Comment on above: Performed By: #### C MP, LIPA #### [facility] [address] [place] [address] Dr. Alexia Gallagher Crystals LM Nom (Urine sed) NONE SEEN Normal NONE SEEN [facility] Comment on above: Performed By: #### C MP, LIPA #### [facility] [address] [place] [address] Dr. Alexia Gallagher Epithelial cells LM Ql (Urine sed) FEW Abnormal NONE SEEN /RARE [facility] Comment on above: Performed By: #### C MP, LIPA #### [facility] [address] [address] [address] Alexia Gallagher MUCOUS NONE SEEN Normal NONE SEEN [facility] Comment on above: Performed By: #### C MP, LIPA #### [facility] [address] [address] [address] Alexia Gallagher RBC 0-2 Normal 0-2 [facility] Comment on above: Performed By: #### C MP, LIPA #### [facility] [address] [address] [address] Alexia Gallagher WBC NONE SEEN Normal NONE SEEN [facility] Comment on above: Performed By: #### C MP, LIPA #### [facility] [address] [address] [address] Alexia Gallagher Social History Date Type Detail Facility Start: 03-25-2023 End: 07-28-2023 Tobacco smoking status KYIS Smoker (finding) [facility] Start: 05-23-2015 Sex Assigned At [facility] [employer] Other Start: 1995 Sex Assigned At Female [facility] Unknown if ever smoked [facility] [employer] Other NEGATED: Highlighted row [facility] Vital Signs Date Time Vital Sign Value Performing Clinician Facility 08-31-2023 08:45-0400 Diastolic blood pressure 71 mm[Hg] PHYSICIAN NO [facility] 08-31-2023 08:45-0400 Heart rate 67 /min PHYSICIAN NO [facility] 08-31-2023 08:45-0400 Respiratory rate 18 /min PHYSICIAN NO [facility] 08-31-2023 08:45-0400 SaO2% (BldA) [Mass fraction] 98 % PHYSICIAN NO [facility] 08-31-2023 08:45-0400 Systolic blood pressure 102 mm[Hg] PHYSICIAN NO [facility] 08-31-2023 07:13-0400 Body height 149.86 cm PHYSICIAN NO [facility] 08-31-2023 07:13-0400 Body weight 65.77 kg PHYSICIAN NO [facility] 07-29-2023 07:49-0500 Body temperature 98.4 [degF] PHYSICIAN NO [facility] 07-29-2023 07:49-0500 Diastolic blood pressure 89 mm[Hg] PHYSICIAN NO [facility] 07-29-2023 07:49-0500 Heart rate 82 /min PHYSICIAN NO [facility] 07-29-2023 07:49-0500 Respiratory rate 21 /min PHYSICIAN NO [facility] 07-29-2023 07:49-0500 SaO2% (BldA) [Mass fraction] 100 % PHYSICIAN NO [facility] 07-29-2023 07:49-0500 Systolic blood pressure 124 mm[Hg] PHYSICIAN NO [facility] 07-29-2023 06:00-0500 Body weight 70.1 kg PHYSICIAN NO [facility] 07-27-2023 21:15-0500 Body height 149.86 cm PHYSICIAN NO [facility] 06-08-2023 13:00-0500 Body height 152.4 cm Imad Asaad Other [facility] 06-08-2023 13:00-0500 Body mass index (BMI) [Ratio] 29.19 kg/m2 Imad Asaad Other [facility] [employer] Other 06-08-2023 13:00-0500 Body weight 67.81 kg Imad Asaad Other [facility] 06-08-2023 13:00-0500 Diastolic blood pressure 86 mm[Hg] Imad Asaad Other [facility] 06-08-2023 13:00-0500 Systolic blood pressure 125 mm[Hg] Imad Asaad Other [facility] 05-30-2023 16:00-0500 Body temperature 98.4 [degF] MD Camelia Roger Work Phone: [facility] 05-30-2023 16:00-0500 Diastolic blood pressure 71 mm[Hg] MD Camelia Roger Work Phone: [facility] 05-30-2023 16:00-0500 Heart rate 72 /min MD Camelia Roger Work Phone: [facility] 05-30-2023 16:00-0500 Respiratory rate 16 /min MD Camelia Roger Work Phone: [facility] 05-30-2023 16:00-0500 SaO2% (BldA) [Mass fraction] 98 % MD Camelia Roger Work Phone: [facility] 05-30-2023 16:00-0500 Systolic blood pressure 118 mm[Hg] MD Camelia Roger Work Phone: [facility] 05-30-2023 04:46-0500 Body weight 66.2 kg MD Camelia Roger Work Phone: [facility] 05-29-2023 14:30-0500 Body height 149.86 cm MD Camelia Roger Work Phone: [facility] 05-17-2023 09:15-0500 Diastolic blood pressure 94 mm[Hg] MD Camelia Roger Work Phone: [facility] 05-17-2023 09:15-0500 Heart rate 67 /min MD Camelia Roger Work Phone: [facility] 05-17-2023 09:15-0500 Respiratory rate 16 /min MD Camelia Roger Work Phone: [facility] 05-17-2023 09:15-0500 SaO2% (BldA) [Mass fraction] 100 % MD Camelia Roger Work Phone: [facility] 05-17-2023 09:15-0500 Systolic blood pressure 126 mm[Hg] MD Camelia Roger Work Phone: [facility] 05-17-2023 06:45-0500 Body height 149.86 cm MD Camelia Roger Work Phone: [facility] 05-17-2023 06:45-0500 Body weight 63.5 kg MD Camelia Roger Work Phone: [facility] 04-08-2023 09:20-0500 Body height 152.4 cm Reagan Pompa Other [address] Other 04-08-2023 09:20-0500 Body mass index (BMI) [Ratio] 27.53 kg/m2 Reagan Scbari Other [address] Other 04-08-2023 09:20-0500 Body weight 63.96 kg Reagan Scbari Other [address] Other 04-08-2023 09:20-0500 Diastolic blood pressure 76 mm[Hg] Reagan Scbari Other [address] Other 04-08-2023 09:20-0500 Systolic blood pressure 117 mm[Hg] Reagan Scbari Other [address] Other 03-25-2023 23:08-0400 Diastolic blood pressure 79 mm[Hg] MD Camelia Roger Work Phone: [facility] 03-25-2023 23:08-0400 Heart rate 99 /min MD Camelia Roger Work Phone: [facility] 03-25-2023 23:08-0400 Respiratory rate 18 /min MD Camelia Roger Work Phone: [facility] 03-25-2023 23:08-0400 SaO2% (BldA) [Mass fraction] 96 % MD Camelia Roger Work Phone: [facility] 03-25-2023 23:08-0400 Systolic blood pressure 127 mm[Hg] MD Camelia Roger Work Phone: [facility] 03-25-2023 18:38-0400 Body height 149.86 cm MD Camelia Roger Work Phone: [facility] 03-25-2023 18:38-0400 Body temperature 99 [degF] MD Camelia Roger Work Phone: [facility] 03-25-2023 18:38-0400 Body weight 61.3 kg MD Camelia Roger Work Phone: [facility] 02-24-2023 13:45-0400 Body height 152.4 cm Isabella Spencer Other [address] Other 02-24-2023 13:45-0400 Body mass index (BMI) [Ratio] 27.77 kg/m2 Isabella Spencer Other [address] Other 02-24-2023 13:45-0400 Body temperature 99.5 [degF] Isabella Spencer Other [address] Other 02-24-2023 13:45-0400 Body weight 64.5 kg Isabella Spencer Other [address] Other 02-24-2023 13:45-0400 Diastolic blood pressure 95 mm[Hg] Isabella Spencer Other [address] Other 02-24-2023 13:45-0400 Respiratory rate 18 /min Isabella Spencer Other [address] Other 02-24-2023 13:45-0400 SaO2% (BldA) [Mass fraction] 99 % Isabella Spencer Other [address] Other 02-24-2023 13:45-0400 Systolic blood pressure 137 mm[Hg] Isabella Billingsley Other [address] Other 12-02-2022 16:30-0400 Body height 152.4 cm Isabella Johanna Other [address] Other 12-02-2022 16:30-0400 Body mass index (BMI) [Ratio] 28.32 kg/m2 Isabella Johanna Other [address] Other 12-02-2022 16:30-0400 Body temperature 98.5 [degF] Isabellaheide Spencer Other [address] Other 12-02-2022 16:30-0400 Body weight 65.77 kg Isabella Johanna Other [address] Other 12-02-2022 16:30-0400 Respiratory rate 18 /min Isabella Johanna Other [address] Other 12-02-2022 16:30-0400 SaO2% (BldA) [Mass fraction] 97 % Isaeblla Johanna Other [address] Other 05-05-2022 12:25-0500 Body height 152.4 cm Tracy Locke Other [address] Other 05-05-2022 12:25-0500 Body mass index (BMI) [Ratio] 29.68 kg/m2 Tracy Locke Other [address] Other 05-05-2022 12:25-0500 Body temperature 98.2 [degF] Tracy Locke Other [address] Other 05-05-2022 12:25-0500 Body weight 68.95 kg Tracy Locke Other [address] Other 05-05-2022 12:25-0500 Diastolic blood pressure 78 mm[Hg] Tracy Locke Other [address] Other 05-05-2022 12:25-0500 Respiratory rate 18 /min Tracy Locke Other [address] Other 05-05-2022 12:25-0500 SaO2% (BldA) [Mass fraction] 100 % Tracy Locke Other [address] Other 05-05-2022 12:25-0500 Systolic blood pressure 121 mm[Hg] Tracy Locke Other [address] Other Functional Status Date Assessment Result Facility 07-29-2023 Functional status Patient at [facility] Work Phone: 05-30-2023 Functional status Patient at [facility] Work Phone: Mental Status Date Assessment Result Facility 07-29-2023 Cognitive function Cognitive Sta tus Patient at [facility] Work Phone: 05-30-2023 Cognitive function Cognitive Sta tus Patient at [facility] Work Phone: Clinical Notes 02-20-2022 to 08-31-2023 Note Date & Type Note Facility 08-31-2023 Procedure note [facility] 06-15-2023 Evaluation note Encounter Date Diagnosis Assessment Notes May, Liver lesion (ICD-10 - K76.9) [facility] Other 01-17-2024 Evaluation note* Encounter Date Diagnosis Assessment Notes Treatment Notes Treatment Clinical Notes May, Liver lesion (ICD-10 - K76.9) May, Gastroesophageal ref lux disease with esophagitis, unspecified whether hemorrhage (ICD-10 - K21.00) May, Microscopic colitis, unspecified microscopic colitis type (ICD-10 - K52.839) [address] Other 01-08-2024 Consult note Author Abel Downey [facility] May 30, 2023 1:41pm Note Date/Time May 29, 2023 7: 39pm [facility] [address] [place] [address] Gastroenterology Consult Note Signed Patient: Christina Wallace MR#: [id number] : 1995 Acct:[id number] Age/Sex: 27 / F Adm Date: 4 Loc: Room: [address] [place] [address] Type: ADM IN Attending Dr: Heriberto Shin DO Copies to: Abel Downey MD NO FAMILY PHYSICIAN Heriberto Shin DO~ HPI Data of Consult Date of Consultation: 05/29/23 Requesting Physician: Heriberto Shin DO Consult Narrative History of present illness: Ms. Wallace is a 27 year old female who is referred because of nausea and vomotomg and abdominal pain. 2 weeks ago the patient underwent colonoscopy and biopsy showed microscopic colitis. She states for at least a year but worse over the last 6 months she has been having spells of diarrhea which also sets ofincreased reflux symptoms and nausea and vomiting. 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 Budesonide was ordered for the patient with taper but she has not yet started to take it. With her spell she states that she has diffuse abdominal pain as well. The patient does not smoke cigarettes and does not drink alcohol. She does drink a lot of tea. She does vape on occasion. cc:: CC: Heriberto Shin DO Review of Systems Review of Systems All other systems reviewed & are negative unless noted below or in HPI [facility] Medical History (Updated 05/29/23 @ 16:06 by Heriberto Shin DO) Anxiety Surgical History Hx of appendectomy Family History (Updated 05/17/23 @ 06:54 by Anum Smyth RN) Father Diverticulitis Afib Social History Smoking Status: Current every day smoker Tobacco Type: e-cigarettes Substance Use Type: Alcohol and Marijuana Meds Medications and Allergies Allergies nickel Allergy (Verified 03/28/23 09:16) Rash Home Medications omeprazole 20 mg capsule,delayed release 20 mg PO DAILY 05/17/23 [History Confirmed 05/29/23] ondansetron 4 mg disintegrating tablet 4 mg PO Q8H PRN Nausea 05/29/23 [History Confirmed 05/29/23] Exam Physical Exam Vital Signs: Temp Resp BP Pulse Ox O2 Del Method 98.2 F 18 131/94 96 Room Air 05/29/23 14:30 05/29/23 14:30 05/29/23 14:30 05/29/23 14:30 05/29/23 14:30 Narrative: Constitutional: Well-developed, well nourished, alert and oriented ?3, in no apparent distress. Head: Normocephalic. Eyes pupils equal and round, reactive to light and accommodation. No icterus or conjunctivitis. Ears: Normal appearance. Neck and nodes: negative Mouth, nose and throat: Normal appearance. Chest: Clear to auscultation and percussion. Heart: Regular rhythm without murmurs or gallops. No thrills or heaves. Abdomen: No distention or tympany. Normal bowel sounds. Liver and spleen normal to percussion and palpation. No masses or tenderness. No bruits heard Rectum: Grossly normal. Extremities: No palmar erythema. No Dupuytren's contractures. No edema noted. Neuro: Grossly negative. Skin: Normal Results Labs Labs: Laboratory Results - last 24 hr 05/29/23 16:02 PHA Creatinine Clear 105.16 Sodium 135 L Potassium 4.1 Chloride 101 Carbon Dioxide 23.3 Anion Gap 14.8 BUN 8 Creatinine 0.70 Est GFR (CKD-EPI) > 60.0 Glucose 91 Calcium 9.0 Magnesium 1.7 L Total Bilirubin 1.8 H AST 80 H ALT 54 H Alkaline Phosphatase 71 Total Protein 6.7 Albumin 3.8 Globulin 2.9 Albumin/Globulin Ratio 1.3 A&P - Gastroenterology Assessment/Plan (1) Nausea & vomiting: Plan: Will proceed with EGD in am No evidence of colitis on prior workup Documented By: Abel Downey MD 05/29/23 193 Signed By: <Electronically signed by MD Abel Downey> 05/30/23 1341 [facility] Work Phone: 1(246) 916-438201-08-2024 Progress note Author Heriberto Shin [facility] May 30, 2023 11:53am Note Date/Time May 30, 2023 11 :53am [facility] [address] [place] [address] Hospitalist Progress Note Signed Patient: Christina Wallace MR#: [id number] : 1995 Acct:[id number] Age/Sex: 27 / F Adm Date: 4 Loc: Room: [address] [place] [address] Type: ADM IN Attending Dr: Heriberto Shin DO Copies to: ~ Date of Service: 05/30/2023 Subjective Subjective Narrative: Seen and evaluated, patient overall states she is feeling better however she attempted to have a BM this AM and had some extremely sharp abdominal tenderness. Scheduled for EGD today. Exam Physical Exam Vital Signs: Temp Pulse Resp BP Pulse Ox O2 Del Method 98.2 F 79 16 131/89 97 Room Air 05/30/23 07:58 05/30/23 10:56 05/30/23 10:56 05/30/23 10:56 05/30/23 10:56 05/30/23 10:56 Narrative: General: Awake alert, no acute distress HEENT: head atraumatic, normocephalic, moist mucous membranes Neck: supple no masses, no lymphadenopathy CVS: regular rate and rhythm, no murmurs or gallops Respiratory: clear to auscultation bilaterally, no wheezing or crackles, symmetric expansion GI: Abdomen is soft, hypoactive bowel sounds, there is diffuse tenderness throughout which is more concentrated in the midepigastrium. Rebound tendernessnegative. Tidwell sign negative Extremity: moves all extremities, no restrictions of movements, no calf tenderness, no edema Neuro: AOx3, CN II-VII intact. Moves all extremities in all planes of motion. Skin: dry, intact no rashes or lesions Objective Lab Results 05/30/23 06:20 05/30/23 06:20 Meds Allergies and Active Meds Allergies nickel Allergy (Verified 03/28/23 09:16) Rash Active Meds: Active Medications Generic Name Dose Route Start Last Admin Trade Name Trae PRN Reason Stop Dose Admin Acetaminophen 650 mg 05/29/23 15:32 Acetaminophen 325 Mg Tablet PO 05/28/24 15:31 Q6HR PRN Pain Scale 1 - 3 or fever Diphenhydramine HCl 25 mg 05/29/23 23:35 05/30/23 00:15 Diphenhydramine 25 Mg Capsule PO 05/28/24 23:34 25 mg TID PRN Administration Itching Enoxaparin Sodium 40 mg 05/30/23 10:00 Enoxaparin 40 Mg/0.4 Ml Syringe SUBCUT 05/29/24 09:59 DAILY@10 FRANCES Hydromorphone HCl 0.5 mg 05/29/23 15:00 05/30/23 07:53 Hydromorphone 0.5 Mg/0.5 Ml Syringe IV-PUSH 0.5 mg Q4H PRN Administration abdominal pain Sodium Chloride 1,000 mls @ 0 mls/hr 05/30/23 11:15 05/30/23 11:04 0.9% Sodium Chloride 1,000 Ml IV 05/29/24 11:14 20 mls/hr .Q0M FRANCES Administration KVO Melatonin 5 mg 05/29/23 15:32 Melatonin 5 Mg Tablet PO 05/28/24 15:31 QHS PRN Insomnia Methylprednisolone Sodium Succinate 40 mg 05/29/23 16:30 05/30/23 09:13 Methylprednisolone Sod Succ/Pf 40 Mg/Ml (1ml) Vial IV-PUSH 05/28/24 16:29 Not Given DAILY FRANCES Ondansetron HCl 4 mg 05/29/23 15:00 05/30/23 02:55 Ondansetron 4 Mg/2 Ml Vial IV-PUSH 05/28/24 14:59 4 mg Q6H PRN Administration Nausea And Vomiting Pantoprazole Sodium 40 mg 05/30/23 09:00 05/30/23 09:13 Pantoprazole 40 Mg Tablet. PO 05/29/24 08:59 Not Given DAILY FRANCES Sennosides 1 tab 05/29/23 21:00 05/30/23 09:13 Sennosides 8.6 Mg Tablet PO 05/28/24 20:59 Not Given BID FRANCES Simethicone 133.32 mg 05/29/23 19:35 Simethicone 40 Mg/0.6 Ml Drops 15 Ml Bottle PO PREOP PRN Endoscopy Sodium Chloride 0 ml 05/29/23 19:35 05/30/23 07:54 Sodium Chloride 0.9 % 10 Ml Syringe IV-PUSH 05/28/24 19:34 10 ml PRN PRN Administration Flush A&P - Hospitalist Assessment/Plan (1) Acute colitis: Plan: ? Continue Solu-Medrol 40 mg daily until patient can tolerate oral intake ? Patient was already prescribed budesonide at home however she was unable to tolerate taking anything by mouth ? When she can oral intake, plan to transition to p.o. budesonide ? Planned for EGD today. ? Dilaudid as needed for pain ? GI is consulted (2) Microscopic colitis: Plan: Diagnosed from biopsy obtained a colonoscopy on 05/17, pathology in our system (3) Nausea & vomiting: Plan: ? Zofran as needed ? N.p.o. with ice chips tonight, plan to advance diet tomorrow morning with fullliquids as tolerated (4) Constipation: Plan: ? Her last bowel movement was Tuesday ? Sennoside scheduled (5) Lactic acidosis: Plan: ? Lactic acid was elevated at outside facility at 3.6, did receive IV fluids ? Resolved Plan ? DVT prophylaxis addressed ? EGD today ? Full code Documented By: Heriberto Shin DO 05/30/23 1151 Signed By: <Electronically signed by Heriberto Shin DO> 05/30/23 1153 [facility] Work Phone: 1(199) 543-241201-08-2024 [facility] History and physical note Author Heriberto Shin [facility] May 29, 2023 4:08pm Note Date/Time May 29, 2023 4: 08pm [facility] [address] [place] [address] Hospitalist H&P Signed Patient: Christina Wallace MR#: [id number] : 1995 Acct:[id number] Age/Sex: 27 / F Adm Date: 4 Loc: Room: 7S6526-5 Type: ADM IN Attending Dr: Heriberto Shin DO Copies to: NO FAMILY PHYSICIAN Heriberto Shin DO~ HPI DATE OF EXAMINATION: 05/29/23 CHIEF COMPLAINT: abdominal pain HISTORY OF PRESENT ILLNESS: Miss Wallace is a 27-year-old female Who was transferred here from this episode for chief complaint abdominal pain and colitis flareup. She presented to an outside facility yesterday afternoon with a chief complaint of nausea and vomiting, inability to hold anything down orally. She states she started first thing more when she woke up, there was numerous episodes of vomiting, even if she did not eat or drink anything she was still vomited. She denies any blood inthe vomit. This is associated with abdominal pain, she rates it a 8 out of 10 when there is no pain medications system. She is it is diffusely tender throughout her abdomen, she also endorses constipation. She denies any focal plaints on her abdomen where the pain is worse. It does not radiate to her back. She denies any blood in her stool, she is still urinating without difficulty. Of note, she does have a colonoscopy here on May 17, 2023, per the report there was a normal colonoscopy and biopsies were obtained and were notable for mild increase in intraepithelial leukocytes, cannot rule out microscopic lymphocytic variation colitis. Review of Systems Review of Systems All other systems reviewed & are negative unless noted below or in HPI [facility] Medical History (Updated 05/29/23 @ 16:06 by Heriberto Shin DO) Anxiety Surgical History Hx of appendectomy Family History (Updated 05/17/23 @ 06:54 by Anum Smyth RN) Father Diverticulitis Afib Social History Smoking Status: Current every day smoker Tobacco Type: e-cigarettes Substance Use Type: Alcohol and Marijuana Meds Medications and Allergies Allergies nickel Allergy (Verified 03/28/23 09:16) Rash Home Medications omeprazole 20 mg capsule,delayed release 20 mg PO DAILY 05/17/23 [History Confirmed 05/29/23] ondansetron 4 mg disintegrating tablet 4 mg PO Q8H PRN Nausea 05/29/23 [History Confirmed 05/29/23] Exam Physical Exam Vital Signs: Temp Resp BP Pulse Ox O2 Del Method 98.2 F 18 131/94 96 Room Air 05/29/23 14:30 05/29/23 14:30 05/29/23 14:30 05/29/23 14:30 05/29/23 14:30 Narrative: General: Awake alert, no acute distress HEENT: head atraumatic, normocephalic, moist mucous membranes Neck: supple no masses, no lymphadenopathy CVS: regular rate and rhythm, no murmurs or gallops Respiratory: clear to auscultation bilaterally, no wheezing or crackles, symmetric expansion GI: Abdomen is soft, hypoactive bowel sounds, there is diffuse tenderness throughout which is more concentrated in the midepigastrium. Rebound tendernessnegative. Tidwell sign negative Extremity: moves all extremities, no restrictions of movements, no calf tenderness, no edema Neuro: AOx3, CN II-VII intact. Moves all extremities in all planes of motion. Skin: dry, intact no rashes or lesions Assessment & Plan Assessment/Plan (1) Acute colitis: Plan: ? Initiate Solu-Medrol 40 mg daily until patient can tolerate oral intake ? Patient was already prescribed budesonide so she did make that change take it ? When she can viral intake, plan to transition to p.o. budesonide ? She received 1 L IV fluids overnight while she is n.p.o. ? Dilaudid as needed for pain ? GI is consulted (2) Microscopic colitis: Plan: Diagnosed from biopsy obtained a colonoscopy on 1225, pathology of our system (3) Nausea & vomiting: Plan: ? Zofran as needed ? N.p.o. with ice chips tonight, plan to advance diet tomorrow morning with fullliquids as tolerated (4) Constipation: Plan: ? Her last bowel movement was Tuesday ? Sennoside scheduled (5) Lactic acidosis: Plan: ? Lactic acid was elevated at outside facility at 3.6, did receive IV fluids ? Resolved Plan ? DVT prophylaxis addressed ? N.p.o. tonight, full liquid diet tomorrow advance as tolerated ? Full code IP vs OBS Justification Based on differential dx, clinical care plan, and risk of adverse events, if untreated, in my clinical judgement this patient requires an acute care setting as: INPATIENT because of an expectation of an over 2 midnight stay. Estimated length of stay (# of days): 3 Documented By: Heriberto Shin DO 05/29/23 1601 Signed By: <Electronically signed by Heriberto Shin DO> 05/29/23 1608 [facility] Work Phone: 1(689) 614-153412-26-2023 [facility]* Encounter Date Diagnosis Assessment Notes Treatment Notes Treatment Clinical Notes Mar, Abdominal pain (ICD-10 - R10.9) Continue omeprazole 20 mg once a day Mar, Constipation (ICD-10 - K59.00) Patient advised to start a probiotic daily. Patient advised to start fiber-3 gummies a day. Patient advised to increase water intake. Patient advised to use miralax three times a day. Mar, Liver lesion (ICD-10 - K76.9) Mar, Family history of colon cancer (ICD-10 - Z80.0) Mar, Change in bowel habits (ICD-10 - R19.4) [address] [facility] 10-05-2023 Evaluation note* Encounter Date Diagnosis Assessment Notes Treatment Notes Treatment Clinical Notes Feb, Sore throat (ICD-10 - J02.9) Feb, Viral URI with cough (ICD-10 - J06.9) Negative COVID PCR, negative rapid strep. Discussed with patient exam and history is consistent with viral upper respiratory infection. Discussed viral nature of illness and typical duration of 7 to 14 days. Advised antibiotics unfortunately do not treat viral illnesses. May use symptomatic treatment such as dayquil/nyquil. May use Tylenol/ibuprofen for any pain/fever. Follow-up with PCP if not improving over the next 7 days, sooner if significantly worsening symptoms. Feb, Contact with and (suspected) exposure to covid-19 (ICD-10 - Z20.822) [address] Other 07-13-2023 Evaluation note* Encounter Date Diagnosis Assessment Notes Treatment Notes Treatment Clinical Notes Nov, Contact with and (suspected) exposure to covid-19 (ICD-10 - Z20.822) rapid flu and covid neg Nov, Viral URI with cough (ICD-10 - J06.9) Strep, rapid COVID, rapid flu were all negative. Discussed consistent with other viral upper respiratory infection. Discussed viral nature of illness and typical duration of 7 to 14 days. Advised antibiotics unfortunately do not treat viral illnesses. May use symptomatic treatment such as dayquil/nyquil. May use Tylenol/ibuprofen for any pain/fever. Follow-up with PCP if not improving over the next 7 days, sooner if significantly worsening symptoms. Nov, Sore throat (ICD-10 - J02.9) rapid strep neg [address] Other 12-14-2022 Evaluation note* Encounter Date Diagnosis Assessment Notes Treatment Notes Treatment Clinical Notes Apr, Sciatica of left side (ICD-10 - M54.32) Sciatica home care material was printed Drink plenty fluids, get plenty of rest. Take the prednisone as prescribed until gone. Take the cyclobenzaprine as prescribed as needed for muscle pain and stiffness. You may take Tylenol as needed for any other pain. Avoid taking ibuprofen or Aleve while on the prednisone. Limit your lifting and bending. Follow-up with your family physician if no improvement in 2 to 3 days. Apr, Strain of lumbar region, initial encounter (ICD-10 - S39.012A) [address] Other 10-01-2022 History general Narrative - Reported* Type Description Date Medical History Eczema Medical History Asthma Medical History back pain Surgical History wisdom teeth Surgical History appendectomy 2019 Hospitalization History Dehydration 02/[address] Other Discharge summary Author Heriberto Shin [facility] May 30, 2023 6:04pm Note Date/Time May 30, 2023 6: 04pm [facility] [address] [place] [address] Discharge Summary Signed Patient: Christina Wallace MR#: [id number] : 1995 Acct:[id number] Age/Sex: 27 / F Adm Date: 4 Loc: Room: [address] [place] [address]: Heriberto Shin DO Copies to: NO FAMILY PHYSICIAN Heriberto J Shin, DO~ Providers Date of Admission: 05/29/23 Date of Discharge: 05/30/23 Discharging Provider: Heriberto Shin Primary Care Provider: PHYSICIAN NO FAMILY Consults: 05/29/23 15:29 Consult to Gastroenterology Routine Discharge Diagnosis (1) Nausea & vomiting: (2) Lactic acidosis: (3) Constipation: (4) Duodenitis: (5) Esophagitis: (6) Gastritis: Final Diagnosis Final Discharge Diagnosis: As above Summary Hospital Course Hospital course: Miss Wallace was accepted to this hospital on transfer the afternoon of May 7for chief complaint of worsening abdominal pain and constipation which is worse with eating. She was initially admitted on May 28 and kept overnight at an outside facility and then transferred here in May 29, it was initially assumed she had a possible colitis flare and started on methylprednisolone, thisis based off CT scan MRI, and colonoscopy with biopsy which did show possible microscopic colitis. I consulted GI requesting EGD colonoscopy, EGD was performed the afternoon of May 30 and did show ulcerative duodenitis, hiatal hernia with erosive esophagitis as well as patchy antral gastritis. There is noevidence of any colitis, GI recommended long-term therapy with PPI, the patient was discharged in May 30 with a prescription of Protonix 40 mg daily for 3-month supply with instructions to follow-up with GI in the office. Number she was in her hospital over 1 1 midnight, she was admitted throughout her entire hospitalization for this problem more than 2 midnights. She did present to the hospital with a lactic acidosis as well which was resolved with IV fluids. Time Spent with Patient Time spent providing/coordinating discharge services (# min): 35 Surgeries and Procedures Operation Date: 05/30/23 11:30 Actual Procedures p DH EGD(Not Applicable) - Abel Downey MD Diagnostic Studies Completed and Pending Studies Pending studies at discharge: 05/31/23 05:00 Comprehensive Metabolic Panel [CHEM] IN AM Magnesium [CHEM] IN AM 06/01/23 05:00 Comprehensive Metabolic Panel [CHEM] IN AM Magnesium [CHEM] IN AM Labs on day of discharge: 05/30/23 06:20: PHA Creatinine Clear 94.82, Sodium 135 L, Potassium 4.1, Chloride 96 L, Carbon Dioxide 28.6, Anion Gap 14.5, BUN 8, Creatinine 0.77, Est GFR (CKD- EPI) > 60.0, Glucose 90, Calcium 9.2, Magnesium 2.2, Total Bilirubin 2.4 H, AST 55 H, ALT 49, Alkaline Phosphatase 76, Total Protein 7.1, Albumin 4.2, Globulin 2.9, Albumin/Globulin Ratio 1.4 05/30/23 06:20: Corrected WBC 11.0, Uncorrected WBC Count 11.0, RBC 4.44, Hgb 15.4, Hct 45.0, MCV 101.5 H, MCH 34.7 H, MCHC 34.2, RDW 13.2, Plt Count 315, MPV 7.9, Neut % (Auto) 88.1, Lymph % (Auto) 7.0, Camp % (Auto) 4.7, Eos % (Auto) 0.0, Baso % (Auto) 0.2, Nucleat RBC Rel Count 0.1, Neut # (Auto) 9.7 H, Lymph # (Auto) 0.8 L, Camp # (Auto) 0.5, Eos # (Auto) 0.0, Baso # (Auto) 0.0 Exam Physical Exam Vital Signs: Temp Pulse Resp BP Pulse Ox O2 Del Method 97.9 F 60 14 112/44 L 98 Room Air 05/30/23 14:00 05/30/23 14:02 05/30/23 14:02 05/30/23 14:02 05/30/23 14:02 05/30/23 16:00 Narrative: General: Awake alert, no acute distress HEENT: head atraumatic, normocephalic, moist mucous membranes Neck: supple no masses, no lymphadenopathy CVS: regular rate and rhythm, no murmurs or gallops Respiratory: clear to auscultation bilaterally, no wheezing or crackles, symmetric expansion GI: Abdomen is soft, hypoactive bowel sounds, there is diffuse tenderness throughout which is more concentrated in the midepigastrium. Rebound tenderness negative. Tidwell sign negative Extremity: moves all extremities, no restrictions of movements, no calf tenderness, no edema Neuro: AOx3, CN II-VII intact. Moves all extremities in all planes of motion. Skin: dry, intact no rashes or lesions Discharge Plan Discharge Plan Patient Disposition: Home Diet: Other Comment: GI Soft, low fiber diet Stand Alone Forms: Work/School Release Form Prescriptions: New pantoprazole 40 mg Tablet,Delayed Release (Dr/Ec) 40 mg PO DAILY 90 Days Qty: 90 0RF Continued ondansetron 4 mg tablet,disintegrating 4 mg PO Q8H PRN (Reason: Nausea) Patient Comments: DISSOLVE 1 TABLET BY MOUTH EVERY 8 HOURS NEEDED FOR NAUSEA AND VOMITING Discontinued omeprazole 20 mg capsule,delayed release(DR/EC) 20 mg PO DAILY Rx Instructions: swallow whole; do not crush, chew, dissolve, or cut/break Follow Up: Abel Downey MD [Active Staff] - NO FAMILY,PHYSICIAN [Primary Care Provider] - (Please become established with provider of choice as discussed. It is recommended to follow up with primary care in 7-10 days from discharge.) Documented By: Heriberto Shin DO 05/30/231800 Signed By: <Electronically signed by Heriberto Shin DO> 05/30/231803 [facility] Work Phone: Evaluation noteNo assessment information available [facility] Work Phone: Evalujdzsl noteNo InformationNort Living [employer] Other Evaluation note* Diagnosis Onset Date Resolution Status Acute colitis acute Constipation acute Lactic acidosis acute Microscopic colitis acute Nausea & vomiting acute [facility] Work Phone: Evaluation note* Diagnosis Onset Date Resolution Status Change in bowel habits acute Duodenitis resolved Elevated troponin resolved Hypokalemia resolved Hypomagnesemia resolved Syncope resolved [facility] Work Phone: History and physical note Author Kenrick Gill [facility] May 17, 2023 8:26am Note Date/Time May 17, 2023 8:26am [facility] [address] [place] [address] Gastroenterology H&P Signed Patient: Christina Wallace MR#: [id number] : 1995 Acct:[id number] Age/Sex: 27 / F Adm Date: 3 Loc: Room: Type: [facility] Attending Dr: Kenrick Gill MD Copies to: MD Camelia Ramos MD~ Date of Service: 05/17/2023 HISTORY & PHYSICAL: Patient's history with special attention to the cardiovascular, pulmonary systems and the current problem was reviewed with the patient immediately prior to the procedure. Present medications and doses reviewed in the EMR. Allergies and pertinent laboratory tests were also reviewedat this time in the EMR. The physical examination, as below, was then performed. Indication, assessment and HPI: 27-year-old female here for colonoscopy for evaluation of change in bowel habits Family history of GI malignancy? No PHYSICAL EXAMINATION Mouth and Pharynx : Moist mucus membranes, normal dentition Cardiac: Regular rate, regular rhythm Pulmonary: Clear to auscultation bilaterally, no wheezing Neurological: Alert and oriented x3, no focal deficits noted Abdomen: Abdomen soft, non-tender REVIEW OF SYSTEMS Constitutional: Denies malaise, fevers Cardiovascular: Denies chest pain, palpitations Respiratory: Denies shortness of breath, wheezing Gastrointestinal: Per HPI Genitourinary: Denies dysuria, polyuria Musculoskeletal: Denies joint swelling, joint stiffness Neurological: Denies numbness, tingling Integumentary: Denies rashes, skin lesions Endocrine: Denies fatigue, weight loss Written informed consent obtained from the patient. Risks (including but not limited to perforation, infection, bloating, bleeding, need for emergent surgeryand loss of life), benefits and alternatives explained and questions answered. The patient verbalized understanding. Based on history patient is an appropriate candidate for the procedure. Kenrick Gill M.D. Documented By: Kenrick Gill MD 05/17/23824 Signed By: <Electronically signed by Kenrick Gill MD> 05/17/23825 [facility] Work Phone: History and physical note Author Kenrick Gill [facility] August 31, 2023 8:13am Note Date/Time August 31, 2023 8:1 3am [facility] [address] [place] [address] Gastroenterology H&P Signed Patient: Christina Wallace MR#: [id number] : 1995 Acct:[id number] Age/Sex: 28 / F Adm Date: 4 Loc: Room: Type: [facility] Attending Dr: Kenrick Gill MD Copies to: Kenrick Gill MD NO FAMILY PHYSICIAN~ Date of Service: 08/31/2023 HISTORY & PHYSICAL: Patient's history with special attention to the cardiovascular, pulmonary systems and the current problem was reviewed with the patient immediately prior to the procedure. Present medications and doses reviewed in the EMR. Allergies and pertinent laboratory tests were also reviewedat this time in the EMR. The physical examination, as below, was then performed. Indication, assessment and HPI: 28-year-old female with a history of esophagitishere for EGD to assess for Luong's Family history of GI malignancy? No PHYSICAL EXAMINATION General appearance: Pleasant, NAD Skin: No jaundice Head: NC/AT Eyes: Anicteric Neck: Supple Lungs: Normal respiratory effort, no use of accessory muscles Abdomen: Soft, nondistended Neuro: Ox3. REVIEW OF SYSTEMS Constitutional: Denies malaise, fevers Cardiovascular: Denies chest pain, palpitations Respiratory: Denies shortness of breath, wheezing Gastrointestinal: As per HPI Genitourinary: Denies dysuria, polyuria Musculoskeletal: Denies joint swelling, joint stiffness Neurological: Denies confusion, numbness, tingling Endocrine: Denies fatigue Written informed consent obtained from the patient. Risks (including but not limited to perforation, infection, bloating, bleeding, need for emergent surgeryand loss of life), benefits and alternatives explained and questions answered. The patient verbalized understanding. Based on history patient is an appropriate candidate for the procedure. Kenrick Gill M.D. Documented By: Kenrick Gill MD 08/31/2309 Signed By: <Electronically signed by Kenrick Gill MD> 08/31/23812 [facility] Work Phone: History general Narrative - Reported* Type Description Date Medical History Eczema Medical History Asthma Medical History back pain Medical History Ulcerative colitis Medical History Magnesium deficiency Surgical History wisdom teeth Surgical History appendectomy 2019 Hospitalization History Dehydration 02/[address] [facility] Hospital Discharge instructions Additional Instructions DISCHARGE INSTRUCTIONS FOR COLONOSCOPY WHAT TO EXPECT: - You may feel full, gassy or cramping after your procedure. In some cases, this may be from a few hours to a day. Walking may help relieve the discomfort. - If you have polyp(s) removed you may note some minor bloody discharge after your first bowel movements. - You should begin to recover from anesthesia within 1 hour of the procedure, however may feel groggy for the next 24 hours. DO's AND DON'Ts: - Call your doctor right away if you have a hard abdomen, severe pain, are passing lots of bright red blood or clots. - Call your doctor if you develop any rashes, hives or difficulty breathing. - Let your doctor know if you have not had a bowel movement by 3 days after your procedure. - If you take 81 mg aspirin for your heart it is safe to resume this medication. - If you take other blood thinner medications your doctor will instruct you when these can safely be resumed. - Do NOT drive for 24 hours. - Do NOT operate machinery such as power tools, lawn mowers, snow blowers, sewing machines, etc. for 24 hours. - Avoid alcoholic beverages and drugs for allergies, nerves, or sleep. - Do NOT stay alone. Do NOT leave your child unattended. - Do NOT make important personal or business decisions or sign any legal documents. - Eat solid foods and drink liquids in smaller amounts than usual until normal appetite returns. If you should experience an upset stomach, liquids high in sugar content (soda, Billy-Aid, non-acid juices) are recommended. - You can resume normal activities tomorrow. FOLLOW UP & RECOMMENDATIONS: -Notify the doctor if you have any problems. -Follow up in the office as scheduled -Office number [phone]. [facility] Work Phone: Summary Purpose Family History No Family History Records Found Relationship Condition Age at Onset Recorded Date/T sindi father Diverticulitis Unknown Atrial fibrillation Unknown Relationship Condition Age at Onset Recorded Date/T sindi father Atrial fibrillation Unknown Diverticulitis Unknown Hypertension Unknown Advance Directives No Advanced Directives Records Found Advance Directive Response Recorded Date/ Time Advance Directives No March 25, 2023 6:58pm Advance Directive Response Recorded Date/ Time Advance Directives No April 25, 2018 11:50am Advance Directive Response Recorded Date/ Time Advance Directives No April 25, 2018 12:50pm Chief Complaint and Reason for Visit Chief Complaint n/v/weakness Chief Complaint n/v/weakness abdominal pain, constipation, change in bowel habi Chief Complaint n/v/weakness abdominal pain, constipation, change in bowel habi k76.9 Chief Complaint n/v/weakness abdominal pain, constipation, change in bowel habi k76.9 direct admit from [facility] Reason for Visit Acute colitis Constipation Lactic acidosis Microscopic colitis Nausea & vomiting Chief Complaint Follow Up Scope syncopal episodes syncopal episodes syncopal episodes luong's esophagus luong's esophagus Reason for Visit Change in bowel habi ts Duodenitis Elevated troponin Hypokalemia Hypomagnesemia Syncope Additional Source Comments REASON FOR VISIT (unrecogniz ed section and content) LEFT LOWER BACK PAIN, RADIAT ES DOWN LEFT LEGEAR ACHE, SORE THROAT, HEADACHESCONGESTION, BODY ACHES, SCRATCHY THROAT, DAINAGE, UPSET STOMPatient is here for abdominal painClinical Acute MedicineimagingFOLLOW UP SCOPE INFORMATION SOURCE (unrecogn ized section and content) DATE CREATED AUTHOR 08/25/2022 [facility] DATE CREATED AUTHOR AUTHOR'S ORGANIZ ATION 03/27/2023 [facility] DATE CREATED AUTHOR AUTHOR'S ORGANIZ ATION 2023 [facility] DATE CREATED AUTHOR AUTHOR'S ORGANIZ ATION 10/07/2023 [facility] DATE CREATED AUTHOR AUTHOR'S ORGANIZ ATION 10/29/2023 [facility] Care Teams (unrecognized sec tion and content) Team Status: Active Member Role Status Dates Camelia Roger MD Primary Care Provider Active Team Status: Inactive Member Role Status Dates Camelia Roger MD Primary Care Provider Active Rabia Murrieta DO Emergency Provider Active Team Status: Inactive Member Role Status Dates Camelia Roger MD Primary Care Provider Active Kenrick Gill MD Attending Provider Active Team Status: Inactive Member Role Status Dates Camelia Roger MD Primary Care Provider Active Reagan Pompa APRN Attending Provider Active Team Status: Active Member Role Status Dates PHYSICIAN NO FAMILY Primary Care Provider Active Team Status: Inactive Member Role Status Dates PHYSICIAN NO FAMILY Primary Care Provider Active Heriberto hSin DO Admit Provider, Attending Provider Active Abel Downey MD Other Provider Active Team Status: Inactive Member Role Status Dates Kenrick Gill MD Attending Provider Active Start: June 08, 2023 End: June 08, 2023 Team Status: Inactive Member Role Status Dates PHYSICIAN NO FAMILY Primary Care Provider Active Start: July 27, 2023 End: July 29, 2023 Mireille Ley APRN Emergency Provider Active Start: July 27, 2023 End: July 29, 2023 Heriberto Shin DO Admit Provider Active Start: July 27, 2023 End: July 29, 2023 Abel Downey MD Other Provider Active Start: July 27, 2023 End: July 29, 2023 Trung Dalal MD Other Provider Active Start : July 27, 2023 End: July 29, 2023 Lg Kurtz MD Other Provider Active Start: [facility] 2023 End: July 29, 2023 Fiona Rowley MD Other Provider Active Start: July 27, 2023 End: July 29, 2023 Mame Conde MD Other Provider Active Start: [facility] 2023 End: July 29, 2023 Reagan Pompa APRN Other Provider Active St art: July 27, 2023 End: July 29, 2023 Kenrick Gill MD Other Provider Active Start: [facility] 2023 End: July 29, 2023 Sixto Reina MD Other Provider Active Start: [facility] 2023 End: July 29, 2023 Mann Rowley MD Attending Provider Active Sta rt: July 27, 2023 End: July 29, 2023 Team Status: Active Member Role Status Dates PHYSICIAN NO FAMILY Primary Care Provider Active Start: July 27, 2023 Mireille Ley APRN Emergency Provider Active Start: July 27, 2023 Heriberto Shin DO Admit Provider, Atte nding Provider Active Start: July 27, 2023 Cedric Biggs MD Other Provider Active Start: July 27, 2023 Abel Downey MD Other Provider Active Start: July 27, 2023 Trung Dalal MD Other Provider Active Start : July 27, 2023 Lg Kurtz MD Other Provider Active Start: [facility] 2023 Fiona Rowley MD Other Provider Active Start: July 27, 2023 Mame Conde MD Other Provider Active Start: [facility] 2023 Reagan Pompa APRN Other Provider Active St art: July 27, 2023 Kenrick Gill MD Other Provider Active Start: [facility] 2023 Sixto Reina MD Other Provider Active Start: [facility] 2023 Team Status: Active Member Role Status Dates PHYSICIAN NO FAMILY Primary Care Provider Active Start: July 28, 2023 Mireille Ley APRN Emergency Provider Active Start: July 28, 2023 Heriberto Shin DO Admit Provider Active Start: July 28, 2023 Cedric Biggs MD Other Provider Active Start: July 28, 2023 Abel Downey MD Other Provider Active Start: July 28, 2023 Trung Dalal MD Attending Provider, Other Provider Active Start: July 28, 2023 Lg Kurtz MD Other Provider Active Start: [facility] 2023 Fiona Rowley MD Other Provider Active Start: July 28, 2023 Mame Conde MD Other Provider Active Start: [facility] 2023 Reagan Pompa APRN Other Provider Active St art: July 28, 2023 Kenrick Gill MD Other Provider Active Start: Jul 2023 Sixto Reina MD Other Provider Active Start: [facility] 2023 Team Status: Active Member Role Status Dates PHYSICIAN NO FAMILY Primary Care Provider Active Start: July 29, 2023 Bailey Cadena MD Active Start: [facility] 2023 Mann Rowley MD Attending Provider Active Sta rt: July 29, 2023 Team Status: Inactive Member Role Status Dates PHYSICIAN NO FAMILY Primary Care Provider Active Start: August 31, 2023 End: August 31, 2023 Kenrick Gill MD Attending Provider Active Start: August 31, 2023 End: August 31, 2023 Team Status: Active Member Role Status Dates PHYSICIAN NO FAMILY Primary Care Provider Active Start: August 31, 2023 Kenrick Gill MD Attending Provider, Other Provider Act bertrand Start: August 31, 2023 Goals (unrecognized section and content) Goals may be documented in a n alternate section FOR RECORDS PERTAINING TO PATIENTS WHO ARE OR HAVE BEEN ENROLLED IN A CHEMICAL DEPENDENCY/SUBSTANCEABUSE PROGRAM, SOME INFORMATION MAY BE OMITTED. This clinical summary was aggregated from multiple sources. Caution should be exercised in using it in the provision of clinical care. This summary normalizes information from multiple sources, and as a consequence, information in this document may materially change the coding, format and clinical context of patient data. In addition, data may be omitted in some cases. CLINICAL DECISIONS SHOULD BE BASED ON THE PRIMARY CLINICAL RECORDS. [facility] [employer] [facility]. provides no warranty or guarantee of the accuracy or completeness of information in this document.
[2023-11-09 22:44] LABS: Bilirubin Urine NEGATIVE (NEGATIVE); Blood Urine NEGATIVE (NEGATIVE); Clarity Urine CLEAR (CLEAR); Color Urine LT. YELLOW (YELLOW); Glucose Urine UA NEGATIVE (NEGATIVE); Ketones Urine TRACE mg/dL (NEGATIVE); Leukocyte Esterase Urine NEGATIVE (NEGATIVE); Nitrite Urine NEGATIVE (NEGATIVE); Protein Urine NEGATIVE (NEG/TRACE); Specific Gravity Urine <=1.005 (1.005-1.025); Urobilinogen Urine 0.2 EU/dL (0.2-1.0)
[2023-11-09 22:45] LABS: HCG Qualitative Urine* NEGATIVE (NEGATIVE); Internal Control Within Normal Limits
[2023-11-09 22:45] LABS: Basophils Absolute Auto 0.1 10^3/uL (0.0-0.1); Basophils Percent Auto 1.3 % (0.2-2.0); Eosinophils Percent Auto 0.6 % (0.9-7.0); Hematocrit 42.2 % (36.0-48.0); Hemoglobin 14.2 g/dL (12.0-16.0); Immature Granulocytes Abs Auto 0.01 10^3/uL (0.00-0.03); Immature Granulocytes Pct Auto 0.2 % (0.0-0.5); Lymphocytes Absolute Auto 1.7 10^3/uL (1.2-3.8); Lymphocytes Percent Auto 32.9 % (20.5-60.0); Mean Corpuscular HGB Conc 33.6 g/dL (29.9-35.2); Mean Corpuscular Hemoglobin 33.6 pg (26.7-34.0); Mean Corpuscular Volume 99.8 fL (81.0-99.0); Mean Platelet Volume 9.2 fL (9.5-13.5); Monocytes Absolute Auto 0.3 10^3/uL (0.3-0.8); Monocytes Percent Auto 6.4 % (1.7-12.0); Neutrophils Absolute Auto 3.1 10^3/uL (1.4-6.5); Neutrophils Percent Auto 58.6 % (43.0-75.0); Platelet Count 246 10^3/uL (150-450); Red Blood Count 4.23 10^6/uL (4.20-5.40); Red Cell Distribution Width 12.5 % (11.0-15.0); White Blood Count 5.3 10^3/uL (4.0-11.0)
[2023-11-09 22:51] LABS: Bacteria Urine NONE SEEN #/HPF (NONE SEEN); Cast Seen? NONE SEEN #/LPF (NONE SEEN); Crystals Seen? None Seen #/HPF (None Seen); Mucus Urine NONE SEEN (NONE SEEN); RBC Urine 0-2 #/HPF (0-2); Squamous Epithelial Cell Urine FEW #/LPF (NONE/RARE); Urine Culture Indicated NO; WBC Urine NONE SEEN #/HPF (NONE SEEN)
[2023-11-09] MEDS: 0.9 % SODIUM CHLORIDE 1,000 ML 1000 ML IV ×2 (22:52→23:38)
[2023-11-09] MEDS: ONDANSETRON PF 4 MG/2 ML VIAL IV (22:52)
[2023-11-09] MEDS: KETOROLAC TROMETHAMINE 30 MG/ML VIAL IVP (22:52)
[2023-11-09 22:55] LABS: Alanine Aminotransferase 141 U/L (14-59); Albumin Globulin Ratio 1.1; Alkaline Phosphatase 79 U/L (46-116); Anion Gap 16.6; Aspartate Amino Transferase 171 U/L (15-37); BUN Creatinine Ratio 9.7; Bilirubin Total 1.1 mg/dL (0.2-1.0); Carbon Dioxide 23.8 mmol/L (21.0-32.0); Chloride 101 mmol/L (98-107); Estimated GFR (African America >60 (>=60); Estimated GFR (Non-African Ame >60 (>=60); Globulin 3.8 g/dL; Glucose 94 mg/dL (74-106); Potassium 3.4 mmol/L (3.5-5.1); Sodium 138 mmol/L (136-145); Total Protein 7.8 g/dL (6.4-8.2)
--- NOTE | 2023-11-09 22:57 | ED_ITS ---
HPI - Nausea/Vomiting/Diarrhea General Chief complaint: Nausea/Vomiting/Diarrhea Stated complaint: Nausea/Vomit Time Seen by Provider: 11/09/23 22:15 Source: patient Mode of arrival: walk-in Limitations: no limitations History of Present Illness HPI Narrative: This 28-year-old female who states she has a history of gastroparesis and chronic abdominal pain presents for evaluation of nausea and vomiting. The symptoms started yesterday. She states that she is running out of Zofran. She thinks that she vomited approximately 20 times today. She has intermittent cramping of her lower abdomen. She denies the possibility of . She states she has been vomiting even clear liquids and water and cannot keep anything down. She states she is feeling like she is starting to get dehydrated. She was recently evaluated for cholecystectomy but has not had her gallbladder removed. She has not had any fever or sick contacts. She denies any diarrhea. She is passing small amounts of gas. She denies any chest pain or shortness of breath. Related Data Previous Rx's ?Medication ?Instructions ?Recorded ondansetron HCl 4 mg tablet 4 mg PO Q8H 5 days #15 tabs 03/04/23 pantoprazole 40 mg tablet,delayed 40 mg PO DAILY 4 weeks #28 tabs 03/19/23 release (Protonix) Allergies Allergy/AdvReac Type Severity Reaction Status Date / Time nickel Allergy Unknown Verified 11/09/23 22:11 Review of Systems ROS Status of ROS 10 or more systems reviewed and unremark able except as noted in history and below [facility] Medical History (Updated 11/10/23 @ 06:24 by Bridget Hoyt MD) Gallstones ?K80.20 - Calculus of gallbladder without cholecystitis without obstruction (ICD-10) Asthma ?J45.909 - Unspecified asthma, uncomplicated (ICD-10) Biliary colic ?K80.50 - Calculus of bile duct without cholangitis or cholecystitis without obstruction (ICD-10) Intractable nausea and vomiting ?R11.2 - Nausea with vomiting, unspecified (ICD-10) Dehydration ?E86.0 - Dehydration (ICD-10) Tachycardia ?R00.0 - Tachycardia, unspecified (ICD-10) Abdominal pain ?R10.9 - Unspecified abdominal pain (ICD-10) Surgical History Hx of appendectomy ?Z90.49 - Acquired absence of other specified parts of digestive tract (ICD- 10) Family History Grandfather Family history of cancer Grandfather No problems noted. Grandmother Family history of cancer Family history of myocardial infarction Social History Within the past year, how often did you have a drink containing alcohol: 2-3 times a week Within the past year, how many standard drinks containing alcohol did you have on a typical day: 1 or 2 Within the past year, how often did you have six or more drinks on one occasion: never Total score: 0 Score interpretation: Questions 2 and 3 are 0. It can be assumed that the patient's drinking is below the recommended limits. However, please confirm the accuracy of the patient's alcohol intake over the last few months. 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 Known occupational exposures/hazards: No Highest level of school completed/degree received: high school graduate Do you want help with school or training: No Are you now , , , , never or living with a partner: In a typical week, how many times do you talk on the telephone with family, friends, or neighbors: 3 or more times per week How often do you get together with friends or relatives: 3 or more times per week How often do you attend amish or temple services: never Do you belong to any clubs or organizations such as amish groups unions, fraternal or athletic groups, or school groups: no Total score: 1 Score interpretation: A score of less than or equal to 1 indicates the most socially isolated. Little interest or pleasure in doing things: not at all Feeling down, depressed, or hopeless: not at all Feel stressed/tense/nervous/anxious/difficulty sleeping: only a little Life stressors: divorce/separation Due to disability, difficulty making decisions: No Do you think of yourself as: straight/heterosexual Gender Identity: female Exam Narrative Exam Narrative: Vital signs and Nursing Notes reviewed: Patient is afebrile with a normal pulse, normal blood pressure, she is not hypoxic with pulse ox of 96% on room air General: Awake, alert, oriented, no acute distress, lying comfortably on the stretcher, no respiratory distress, no active vomiting HEENT: Normocephalic atraumatic, mucous membranes are pink and dry, no swelling of the tongue, uvular pharyngeal soft tissues Neck: Supple, no meningeal signs, no anterior or posterior cervical lymphadenopathy Chest: Lungs are clear to auscultation with good air entry, there is no wheezing rhonchi or rales appreciated no accessory muscle use, patient is speaking in complete sentences-no chest wall tenderness to palpation CVS: Regular rate and rhythm S1-S2, no murmurs rubs or gallops, pulses are brisk and equal bilaterally ABD: Soft, nondistended, no reproducible tenderness. No pulsatile masses Extremities: Moving all extremities, no lower extremity tenderness or swelling noted, negative Homans' sign, pulses are brisk and equal bilaterally Skin: Normal in appearance without rash,pallor, petechiae or purpura Neuro: No focal deficits Constitutional Vital Signs, click to edit/add: Last Vital Signs Temp 97.9 F 11/09/23 22:09 Pulse 91 H 11/09/23 22:09 Resp 18 11/09/23 22:09 BP 116/82 11/09/23 23:42 Pulse Ox 100 11/09/23 23:42 O2 Del Method Room Air 11/09/23 22:09 Course Vital Signs Vital signs: Vital Signs Temperature 97.9 F 11/09/23 22:09 Pulse Rate 91 H 11/09/23 22:09 Respiratory Rate 18 11/09/23 22:09 Blood Pressure 126/90 11/09/23 22:09 Pulse Oximetry 96 11/09/23 22:09 Oxygen Delivery Method Room Air 11/09/23 22:09 Temperature 97.9 F 11/09/23 22:09 Pulse Rate 91 H 11/09/23 22:09 Respiratory Rate 18 11/09/23 22:09 Blood Pressure 116/82 11/09/23 23:42 Pulse Oximetry 100 11/09/23 23:42 Oxygen Delivery Method Room Air 11/09/23 22:09 MDM - Nausea/Vomiting/Diarrhea MDM Narrative Medical decision making narrative: This 28-year-old female with a history of gastroparesis, cholelithiasis and elevated liver enzymes in the past presents for evaluation of nausea and vomiting as well as intermittent abdominal cramping. The patient states she has vomited at least 20 times throughout the day and can no longer keep down liquids. She has Zofran but states she is running out of her Zofran. She was evaluated in the past for gallbladder disease but has not had her gallbladder removed. She denies any fevers or chills. She has not had any diarrhea and is passing gas. Her mucous membranes were dry and she was tachycardic upon arrival. An IV was placed and she was medicated with 2 L of normal saline and Zofran. She requested something in addition to Zofran and was given Reglan and Benadryl with clinical improvement. She has not had any additional episodes of vomiting while in the emergency department. Routine labs were ordered. She has a normal white count and hemoglobin. Her lactic acid is elevated at 4 indicating dehydration. Electrolytes are normal. Her liver function tests; AST and ALT are elevated but are stable compared to prior labs we have for comparison. Her alk phos is normal and total bilirubin is 1.1 today. In the past it has been as high as 4.6. She was reevaluated after the second liter of normal saline and repeat lactic acid was drawn. Repeat lactic acid has improved and is now 2.8. She requested something to drink and had a popsicle and ice chips. Her nausea and vomiting appear to be improved. She will be given an additional dose of IV D5 LR to help clear her ketosis and an x-ray of the chest and abdomen was ordered. X-ray is negative for acute findings with questionable enteritis. Lactic acid was repeated again and is still 2.8.. She is tolerating ice chips. She states now that she is having dyspepsia and was given a dose of IV Pepcid and a GI cocktail. Anticipate discharging her home with prescription for antiemetics and Pepcid with recommendation for clear liquid diet and slow advancement to a normal diet over the course of the next several days. Medical Records Medical records narrative: The [address] [address] XRay Report Signed Patient: CHRISTINA NUNEZ MR#: [id number] : 1995 Acct:[id number] Age/Sex: 28 / F ADM Date: 11/09/23 Loc: ER Attending Dr: Ordering Physician: Bridget Hoyt Date of Service: 11/10/23 Procedure(s): XR acute abdomen series Accession Number(s): [id number] cc: CAMELIA ROGER ; Bridget Evelina~ The [address] [address] Patient Name: CHRISTINA NUNEZ MRN: [facility]:[id number] date: 1995 Sex: F Assigned Patient Location: ER Current Patient Location: ER Accession/Order Number: [id number] Exam Date: 11/10/2023 01:50 Report Date: 11/10/2023 02:47 At the request of: BRIDGET HOYT Procedure: XR acute abdomen series EXAM: XR acute abdomen series HISTORY: ad pain . Gastroparesis. COMPARISON: None. TECHNIQUE: Frontal chest with 2 abdominal views. FINDINGS: Frontal chest demonstrates expanded and clear lungs. Well-defined pleural margins. Normal cardiac Silhouette and hilar structures. Mediastinal contours are normal. Normal thoracic osseous structures. Normal bowel gas pattern. Air and mild stool from cecum to rectosigmoid. No distended small bowel loops. There are a few nondistended air-filled small bowel loops left midabdomen are nonspecific and may be from mild nonspecific gastroenteritis or mild ileus. No opaque calculi in the abdomen. No free air or fluid levels. Normal osseous structures. Calcified left hemipelvic phleboliths. XR/XR acute abdomen series IMPRESSION: 1. Nonspecific but nonobstructive bowel gas pattern. 2. Question of mild left abdominal enteritis/gastroenteritis. Lab Data Labs: Lab Results 11/09/23 11/09/23 11/10/23 Range/Units 22:24 22:26 01:28 WBC 5.3 (4.0-11.0) 10^3/uL RBC 4.23 (4.20-5.40) 10^6/uL Hgb 14.2 (12.0-16.0) g/dL Hct 42.2 (36.0-48.0) % MCV 99.8 H (81.0-99.0) fL MCH 33.6 (26.7-34.0) pg MCHC 33.6 (29.9-35.2) g/dL RDW 12.5 (11.0-15.0) % Plt Count 246 (150-450) 10^3/uL MPV 9.2 L (9.5-13.5) fL Neut % (Auto) 58.6 (43.0-75.0) % Lymph % (Auto) 32.9 (20.5-60.0) % [place] % (Auto) 6.4 (1.7-12.0) % Eos % (Auto) 0.6 L (0.9-7.0) % Baso % (Auto) 1.3 (0.2-2.0) % Neut # (Auto) 3.1 (1.4-6.5) 10^3/uL Lymph # (Auto) 1.7 (1.2-3.8) 10^3/uL [place] # (Auto) 0.3 (0.3-0.8) 10^3/uL Eos # (Auto) 0.0 (0.0-0.7) 10^3/uL Baso # (Auto) 0.1 (0.0-0.1) 10^3/uL Abs Immat Gran (auto) 0.01 (0.00-0.03) 10^3/uL Imm/Tot Granulo (auto) 0.2 (0.0-0.5) % Sodium 138 (136-145) mmol/L Potassium 3.4 L (3.5-5.1) mmol/L Chloride 101 (98-107) mmol/L Carbon Dioxide 23.8 (21.0-32.0) mmol/L Anion Gap 16.6 BUN 7.0 (7.0-18.0) mg/dL Creatinine 0.72 (0.55-1.02) mg/dL Est GFR ( Amer) >60 (>=60) Est GFR (Non-Af Amer) >60 (>=60) BUN/Creatinine Ratio 9.7 Glucose 94 (74-106) mg/dL Lactate 4.0 H* 2.8 H* (0.4-2.0) mmol/L Calcium 9.0 (8.5-10.1) mg/dL Total Bilirubin 1.1 H (0.2-1.0) mg/dL AST 171 H (15-37) U/L ALT 141 H (14-59) U/L Alkaline Phosphatase 79 (46-116) U/L Total Protein 7.8 (6.4-8.2) g/dL Albumin 4.0 (3.4-5.0) g/dL Globulin 3.8 g/dL Albumin/Globulin Ratio 1.1 Lipase 60.0 (16.0-77.0) U/L Urine Color Lt. yellow (YELLOW) Urine Clarity Clear (CLEAR) Urine pH 6.0 (5.0-9.0) Ur Specific [place] <=1.005 A (1.005-1.025) Urine Protein Negative (NEG/TRACE) mg/dL Urine Glucose (UA) Negative (NEGATIVE) mg/dL Urine Ketones Trace A (NEGATIVE) mg/dL Urine Occult Blood Negative (NEGATIVE) Urine Nitrite Negative (NEGATIVE) Urine Bilirubin Negative (NEGATIVE) Urine Urobilinogen 0.2 (0.2-1.0) EU/dL Ur Leukocyte Esterase Negative (NEGATIVE) Urine RBC 0-2 (0-2) #/HPF Urine WBC None seen (NONE SEEN) #/HPF Ur Squamous Epith Cells Few A (NONE/RARE) #/LPF Urine Crystals None seen (None Seen) #/HPF Urine Bacteria None seen (NONE SEEN) #/HPF Urine Casts None seen (NONE SEEN) #/LPF Urine Mucus None seen (NONE SEEN) Ur Culture Indicated? No Urine HCG, Qual Negative (NEGATIVE) 11/10/23 Range/Units 05:28 WBC (4.0-11.0) 10^3/uL RBC (4.20-5.40) 10^6/uL Hgb (12.0-16.0) g/dL Hct (36.0-48.0) % MCV (81.0-99.0) fL MCH (26.7-34.0) pg MCHC (29.9-35.2) g/dL RDW (11.0-15.0) % Plt Count (150-450) 10^3/uL MPV (9.5-13.5) fL Neut % (Auto) (43.0-75.0) % Lymph % (Auto) (20.5-60.0) % [place] % (Auto) (1.7-12.0) % Eos % (Auto) (0.9-7.0) % Baso % (Auto) (0.2-2.0) % Neut # (Auto) (1.4-6.5) 10^3/uL Lymph # (Auto) (1.2-3.8) 10^3/uL [place] # (Auto) (0.3-0.8) 10^3/uL Eos # (Auto) (0.0-0.7) 10^3/uL Baso # (Auto) (0.0-0.1) 10^3/uL Abs Immat Gran (auto) (0.00-0.03) 10^3/uL Imm/Tot Granulo (auto) (0.0-0.5) % Sodium (136-145) mmol/L Potassium (3.5-5.1) mmol/L Chloride (98-107) mmol/L Carbon Dioxide (21.0-32.0) mmol/L Anion Gap BUN (7.0-18.0) mg/dL Creatinine (0.55-1.02) mg/dL Est GFR ( Amer) (>=60) Est GFR (Non-Af Amer) (>=60) BUN/Creatinine Ratio Glucose (74-106) mg/dL Lactate 2.8 H* (0.4-2.0) mmol/L Calcium (8.5-10.1) mg/dL Total Bilirubin (0.2-1.0) mg/dL AST (15-37) U/L ALT (14-59) U/L Alkaline Phosphatase (46-116) U/L Total Protein (6.4-8.2) g/dL Albumin (3.4-5.0) g/dL Globulin g/dL Albumin/Globulin Ratio Lipase (16.0-77.0) U/L Urine Color (YELLOW) Urine Clarity (CLEAR) Urine pH (5.0-9.0) Ur Specific [place] (1.005-1.025) Urine Protein (NEG/TRACE) mg/dL Urine Glucose (UA) (NEGATIVE) mg/dL Urine Ketones (NEGATIVE) mg/dL Urine Occult Blood (NEGATIVE) Urine Nitrite (NEGATIVE) Urine Bilirubin (NEGATIVE) Urine Urobilinogen (0.2-1.0) EU/dL Ur Leukocyte Esterase (NEGATIVE) Urine RBC (0-2) #/HPF Urine WBC (NONE SEEN) #/HPF Ur Squamous Epith Cells (NONE/RARE) #/LPF Urine Crystals (None Seen) #/HPF Urine Bacteria (NONE SEEN) #/HPF Urine Casts (NONE SEEN) #/LPF Urine Mucus (NONE SEEN) Ur Culture Indicated? Urine HCG, Qual (NEGATIVE) Discharge Plan Discharge Stand Alone Forms: Portal Instructions Chief Complaint: Nausea/Vomiting/Diarrhea Clinical Impression: Nausea & vomiting, Dehydration Patient Disposition: Home, Self-Care Time of Disposition Decision: 06:23 Condition: Good Prescriptions / Home Meds: No Action ondansetron HCl 4 mg tablet 4 mg PO Q8H 5 Days Qty: 15 0RF pantoprazole [Protonix] 40 mg tablet,delayed release (DR/EC) 40 mg PO DAILY 28 Days Qty: 28 0RF Print Language: Uzbek Instructions: Dehydration (ED), Acute Nausea and Vomiting (ED) Referrals: CAMELIA ROGER [Primary Care Provider] - 1 week
[2023-11-09] MEDS: DIPHENHYDRAMINE HCL 50 MG/ML VIAL 25 MG IV (23:38)
[2023-11-09] MEDS: METOCLOPRAMIDE HCL 10 MG/2 ML VIAL IVP (23:38)
[2023-11-09 23:42] VITALS: BP 116/82; O2SAT 100
[2023-11-09 23:51] VITALS: O2SAT 99
--- NOTE | 2023-11-10 01:40 | XR_ITS ---
The [address] [address] Patient Name: CHRISTINA NUNEZ MRN: [id number] date: 1995 Sex: F Assigned Patient Location: ER Current Patient Location: ER Accession/Order Number: [id number] Exam Date: 11/10/2023 01:50 Report Date: 11/10/2023 02:47 At the request of: GERMAINE MARKER Procedure: XR acute abdomen series EXAM: XR acute abdomen series HISTORY: ad pain . Gastroparesis. COMPARISON: None. TECHNIQUE: Frontal chest with 2 abdominal views. FINDINGS: Frontal chest demonstrates expanded and clear lungs. Well-defined pleural margins. Normal cardiac Silhouette and hilar structures. Mediastinal contours are normal. Normal thoracic osseous structures. Normal bowel gas pattern. Air and mild stool from cecum to rectosigmoid. No distended small bowel loops. There are a few nondistended air-filled small bowel loops left midabdomen are nonspecific and may be from mild nonspecific gastroenteritis or mild ileus. No opaque calculi in the abdomen. No free air or fluid levels. Normal osseous structures. Calcified left hemipelvic phleboliths. XR/XR acute abdomen series IMPRESSION: 1. Nonspecific but nonobstructive bowel gas pattern. 2. Question of mild left abdominal enteritis/gastroenteritis. Electronically authenticated by: DOMINGA MCCRAY Date: 11/10/2023 02:47
[2023-11-10 01:51] LABS: Lactate/Lactic Acid 2.8 mmol/L (0.4-2.0)
[2023-11-10] MEDS: DEXTROSE 5%-LACTATED RINGERS 1,000 ML 200 ML IV (02:16)
[2023-11-10 05:53] LABS: Lactate/Lactic Acid 2.8 mmol/L (0.4-2.0)
[2023-11-10] MEDS: FAMOTIDINE/PF 20 MG/2 ML VIAL IV (06:14)
[2023-11-10] MEDS: lidocaine HCL 15 ML, MAG HYDROX/ALUMINUM HYD/SIMETH 30 ML, HYOSCYAMINE SULFATE 0.25 MG PO (06:14)
[2023-11-10 06:31] VITALS: BP 126/72
[2023-11-10 06:32] VITALS: PULSE 92; O2SAT 98
== END 2023-11-10 06:34 | disposition home or self-care (01) ==
PROVIDERS: Emergency Provider Emergency Medicine; PCP Family Medicine
DX: E86.0 Dehydration (principal); R11.2 Nausea with vomiting, unspecified; K31.84 Gastroparesis; G89.29 Other chronic pain; R10.9 Unspecified abdominal pain; F17.290 Nicotine dependence, other tobacco product, uncomplicated
CPT/HCPCS: 36415; 74022; 80053; 81001; 83605; 83690; 84703; 85025; 96361; 96374; 96375; 99284; J1200; J1885; J2405; J2765

== ENCOUNTER 2025-01-29 20:50 | Inpatient (IN) | payer MEDICAID, SELFPAY ==
--- OUTSIDE RECORDS SUMMARY | 2025-01-17 13:00 | XMS_ITS | Encounter Summary ---
Author Organization [facility] Address [address] [facility] [place] [address] Care Team Providers Care Electrical Development Engineer Name Role Phone Tiffany Lucio NP Unavailable Evon Bey [facility]- Unavailable Reason for Visit * Reason Comments Menorrhagia Pt started bleeding heavy yesterday. Pt has been on control 2 months. Pt can't remember her last period, but normally it isn't heavy. Pt states she saw a sac when she was bleeding and she had an episode about a month and a half ago where she was concerned about missing control Encounter Details Date Type Department Care Team (Late st Contact Info) Description 01/17/2025 1:00 PM EDT [facility] [address] [place] [address] Tiffany Lucio NP [address] [place] [address] Abdominal cramping; Menorrhagia with irregular cycle; Missed period Social History Tobacco Use Types Packs/Day Years Used Date Smoking Tobacco: Never Passive Smoke Exposure: Never Smokeless Tobacco: Never Comments:Pt vapes daily. Alcohol Use Standard Drinks/Week Comments Not Currently 0 (1 standard drink = 0.6 oz pure alcohol) caffiene- 1 tea maybe daily 1-2 pops weekly AUDIT-C Answer Date Recorded Q1: How often do you have a drink containing alc ohol? 2-3 times a week 08/20/2024 Q2: How many drinks containi ng alcohol do you have on a typical day when you are drinking? 3 or 4 08/20/2024 Q3: How often do you have si x or more drinks on one occasion? Monthly 08/20/2024 PHQ-2 Answer Date Recorded Patient Health Questionnaire-2 Score 0 11/29/2024 Education Answer Date Recorded What is the highest level of school you have completed or the highest degree you have received? Some college, no degree 08/20/2024 Comments No Sex and Gender Information Value Date Recorded Sex Assigned at Female 07/19/2024 10:15 AM EST Legal Sex Female 8:01 PM EDT Gender Identity Female 07/19/2024 10:15 AM EST Sexual Orientation Not on file Occupation Industry Job Start Date Job End Date [place] Not on file Not on file Not on file documented as of this encounter Last Filed Vital Signs Vital Sign Reading Time Taken Comments Blood Pressure 128/90 01/17/2025 1:07 PM EDT Pulse 84 01/17/2025 1:07 PM EDT Temperature - - Respiratory Rate - - Oxygen Saturation - - Inhaled Oxygen Concentration - - Weight - - Height - - Body Mass Index - - documented in this encounter Progress Notes * Tiffany Lucio, DORIAN - 01/17/2025 1:00 PM EDT Images from the original note were not included. Yane Wallace is a 29 y.o. female presents with chief complaint of Menorrhagia (Pt started bleeding heavy yesterday. Pt has been on control 2 months. Pt can't remember her last period, but normally it isn't heavy. Pt states she saw a sac when she was bleeding and she had an episode about a month and a half ago where she was concerned about missing control) HPI: HPI History of Present Illness The patient is a 29-year-old female who presents for evaluation of acute concerns. She has recently started control and experienced one menstrual cycle since then, which was normal and painless, lasting three days. However, she has not had another period since. Yesterday, sheexperienced severe pain during what she thought was her period, accompanied by profuse bleeding, crying, and sweating. The bleeding was so intense that it soaked through her tampon within 45 minutes. Upon removing the tampon, she noticed a clear, blood-stained clot the size of her hand. Over the past two weeks, she has also been experiencing breast tenderness, severe abdominal cramps, back pain, lethargy, nausea, and dizziness. She initially attributed these symptoms to her new medication. She has been using pads due to the heavy bleeding, which initially required changing every 1 to 2 hours.The abdominal pain is described as being five times more intense than typical menstrual cramps. Shebelieves she lost a significant amount of blood yesterday, leaving her unable to perform any activities. She has been managing the pain with Tylenol. She recalls having large clots when she was previously on control. She is not currently trying to conceive. GYNECOLOGICAL HISTORY: Menstrual Pain: Present SUBJECTIVE: MEDICATIONS: Current Outpatient Medications Medication Instructions albuterol HFA 90 mcg/act inhaler 2 puffs, Inhalation, Every 4 hours PRN amitriptyline (ELAVIL) 25 mg, Nightly cyclobenzaprine (FLEXERIL) 10 mg, Oral, 3 times daily PRN, Recommend cutting in half. dicyclomine (BENTYL) 20 mg, 3 times daily PRN docusate sodium (COLACE) 100 mg, 2 times daily PRN hydrocortisone 2.5 % cream Daily PRN norgestimate-ethinyl estradiol (Tri-Sprintec) 0.18/0.215/0.25 MG-35 MCG tablet 1 tablet, Oral, Daily ondansetron ODT (ZOFRAN-ODT) 4 mg, Oral, Every 8 hours PRN pantoprazole (PROTONIX) 40 mg, 2 times daily rizatriptan (Maxalt) 10 MG tablet Take 1 tablet just after onset of migraine. May repeat the dose after 2 hours if migraine persists. Max of 2 doses per 24 hours. sertraline (ZOLOFT) 100 mg, Oral, Daily ALLERGIES: Allergies Allergen Reactions Nickel Rash History: Past Medical History: Diagnosis Date Anxiety Depression Diverticulitis Esophagitis Gastritis Hemorrhoids Hiatal hernia IBS (irritable bowel syndrome) Irritable bowel syndrome with both constipation and diarrhea Panic attack Past Surgical History: Procedure Laterality Date APPENDECTOMY 06/2018 COLONOSCOPY 05/17/2023 ESOPHAGOGASTRODUODENOSCOPY 2022 Family History Problem Relation Name Age of Onset Neuropathy Mother Bipolar disorder Mother Anxiety disorder Mother Alcohol abuse Mother Carpal tunnel syndrome Mother Diverticulitis Father Skin cancer Father Hypertension Father Bipolar disorder Father Alcohol abuse Father Bipolar disorder Brother Anxiety disorder Brother Aneurysm Maternal Grandmother Depression Maternal Grandmother Colon cancer Maternal Grandfather Heart disease Paternal Grandmother Breast cancer Paternal Grandmother Hypertension Paternal Grandfather Heart disease Paternal Grandfather Social History Socioeconomic History Marital status: Spouse name: Not on file Number of children: 0 Years of education: 12 Highest education level: Some college, no degree Occupational History Occupation: [employer] Tobacco Use Smoking status: Never Passive exposure: Never Smokeless tobacco: Never Tobacco comments: Pt vapes daily. Vaping Use Vaping status: Every Day Substances: Nicotine, Flavoring Devices: Disposable Substance and Sexual Activity Alcohol use: Not Currently Alcohol/week: 0.0 - 4.0 standard drinks of alcohol Comment: caffiene- 1 tea maybe daily 1-2 pops weekly Drug use: Never Sexual activity: Yes Partners: Male Other Topics Concern Not on file Social History Narrative Not on file Social Drivers of Health Financial Resource Strain: Not on file Food Insecurity: No Food Insecurity (05/21/2024) Received from [facility] Hunger Screening Within the past 12 months we worried whether our food would run out before we got money to buy more.: Never True Within the past 12 months the food we bought just didn't last and we didn't have money to get more.: Never True Transportation Needs: Not on file Physical Activity: Not on file Stress: Not on file Social Connections: Not on file Intimate Partner Violence: Not on file Housing Stability: Not on file I have reviewed and reconciled the history and medication list with the patient today. REVIEW OF SYMPTOMS: Review of Systems Constitutional: Negative for activity change, appetite change and fatigue. HENT: Negative. Respiratory: Negative for cough, shortness of breath and wheezing. Cardiovascular: Negative for chest pain and palpitations. Gastrointestinal: Positive for nausea. Negative for diarrhea. Abdominal pain: and cramping. Genitourinary: Negative. Musculoskeletal: Negative. Skin: Negative for color change, rash and wound. Psychiatric/Behavioral: Negative. OBJECTIVE: Results Labs - Urine test: Negative - Urinalysis: Blood present 07/31/2024 3:06 PM 08/20/2024 12:31 PM 08/28/2024 11:00 AM 09/24/2024 2:54 PM 10/29/2024 3:02 PM 11/29/2024 10:06 AM 01/17/2025 1:07 PM Vitals BMI 29 kg/m2 29.58 kg/m2 29.27 kg/m2 27.08 kg/m2 27.28 kg/m2 26.7 kg/m2 BSA (m2) 1.71 m2 1.73 m2 1.72 m2 1.65 m2 1.66 m2 1.64 m2 Systolic 120 132 134 134 102 128 128 Diastolic 72 92 84 84 64 88 90 Heart Rate 85 76 84 67 117 84 SpO2 99 % Height (in) 5' 0.5 5' 0.5 Weight (lb) 151 154 152.4 141 142 139 Visit Report Report Report Report Report Report Report Report Physical Exam Vitals reviewed. Constitutional: General: She is not in acute distress. Appearance: Normal appearance. Cardiovascular: Rate and Rhythm: Normal rate and regular rhythm. Heart sounds: No murmur heard. Pulmonary: Effort: Pulmonary effort is normal. No respiratory distress. Breath sounds: Normal breath sounds. No wheezing or rhonchi. Abdominal: General: Bowel sounds are normal. There is no distension. Palpations: Abdomen is soft. Tenderness: There is abdominal tenderness (RLQ). Musculoskeletal: Right lower leg: No edema. Left lower leg: No edema. Skin: General: Skin is warm and dry. Findings: No rash. Neurological: Mental Status: She is alert. Mental status is at baseline. Psychiatric: Mood and Affect: Mood normal. Behavior: Behavior normal. Thought Content: Thought content normal. Judgment: Judgment normal. Physical Exam ASSESSMENT AND PLAN: Assessment/Plan Diagnoses and all orders for this visit: Abdominal cramping - POCT , urine - POCT Urinalysis dipstick - US pelvis transvaginal; Future - CBC; Future - HCG, quantitative, ; Future Menorrhagia with irregular cycle - POCT , urine - POCT Urinalysis dipstick - US pelvis transvaginal; Future - CBC; Future - HCG, quantitative, ; Future Missed period - US pelvis transvaginal; Future - CBC; Future - HCG, quantitative, ; Future Assessment & Plan 1. Acute concerns: - She reports severe abdominal pain, heavy bleeding, and a large clear clot, which could indicate amiscarriage or an ectopic . - Her urine test was negative, but her urine showed some blood. Physical exam revealed tenderness in the right lower abdomen. - A transvaginal ultrasound will be performed to rule out these conditions. A complete blood count (CBC) and quantitative hCG level will be checked. A urine culture will be sent to rule out infection. - She is advised to monitor for signs of infection such as fever, body aches, or chills. She is also advised to maintain adequate hydration and monitor her mood due to the discontinuation of Zoloft. If she experiences severe pain or heavy bleeding (going through a pad or tampon an hour), she shouldgo to the ER. -Discussed this likely sounds like irregular menses with recently starting oral control. Discussed importance of taking pill at the same time daily. Urine preg was negative but will get labs and transvaginal US. -Follow up with CONVENTION WORKER. PVU. 30 minutes spent reviewing chart, assessing patient and documenting. Follow up if symptoms worsen or fail to improve. documented in this encounter Plan of Treatment Upcoming Encounters Date Type Department Care Team (Late st Contact Info) Description 01/31/2025 2:30 PM EDT Treatment [facility] [address] [facility] [address] [place] [address] Garret Yanez, TURNING AND BEADING MACHINE OPERATOR 02/04/2025 4:00 PM EDT Treatment [facility] [address] [facility] [address] [place] [address] Bridget Pugh, TURNING AND BEADING MACHINE OPERATOR 02/07/2025 3:30 PM EDT Treatment [facility] [address] [facility] [address] [place] [address] Bridget Pugh, TURNING AND BEADING MACHINE OPERATOR 02/11/2025 4:00 PM EDT Treatment [facility] [address] [facility] [address] [place] [address] Kelli Garcia, PT 02/13/2025 4:00 PM EDT Treatment [facility] [address] [place] [address] Kelli Garcia, MARY 02/14/2025 3:30 PM EDT Office Visit [facility] [address] [place] [phone] Lamont Ornelas, SALES REPRESENTATIVE [employer] [address] [place], [place] [phone] 06/04/2025 1:00 PM EST Telemedicine [facility] [place] [facility] [address] [place] [address] Evon Bey PMHNP-BC [address] [place] [phone] documented as of this encounter Procedures Procedure Name Priority Date/Time Associated Diagnosis Comments CBC Routine 01/17/2025 2:12 PM EDT Abdominal cramping Menorrhagia with irregular cycle Missed period HCG, TOTAL, QN Routine 01/17/2025 2:12 PM EDT Abdominal cramping Menorrhagia with irregular cycle Missed period POCT , URINE Routine 01/17/2025 1:19 PM EDT Abdominal cramping Menorrhagia with irregular cycle POCT URINALYSIS DIPSTICK Routine 01/17/2025 1:19 PM EDT Abdominal cramping Menorrhagia with irregular cycle documented in this encounter Results * HCG, quantitative, (01/17/2025 2:12 PM EDT) HCG, TOTAL, QN <5 mIU/mL [facility] Comment: Reference Range Non or premenopausal <5 Postmenopausal <10 Values from different assay methods may vary. The use of this assay to monitor or to diagnose patients with cancer or any condition unrelated to has not been cleared or approved by the FDA or the product picker of the assay. Blood Venous blood specimen / Unknown 01/17/2025 2:12 PM EDT 01/17/2025 2:14 PM EDT Narrative Resulting Agency Comment Performing Organization Information Site ID: QPT Name: [facility] Address: [facility], [address] [place] [phone] Director: Yogi Morin MD Tiffany Lucio NP LAB BLOOD ORDERABLES Final Result Performing Organization Address City/[facility] Co de Phone Number [facility] * (ABNORMAL) CBC (01/17/2025 2:12 PM EDT) WHITE BLOOD CELL COUNT 5.9 3.8 - 10.8 Thousand/u L [facility] RED BLOOD CELL COUNT 3.82 3.80 - 5.10 Million/uL [facility] HEMOGLOBIN 13.5 11.7 - 15.5 g/dL [facility] HEMATOCRIT 38.9 35.0 - 45.0 % [facility] MCV 101.8(H) 80.0 - 100.0 fL [facility] MCH 35.3(H) 27.0 - 33.0 pg [facility] MCHC 34.7 32.0 - 36.0 g/dL [facility] Comment: For adults, a slight decrease in the calculated MCHC value (in the range of 30 to 32 g/dL) is most likely not clinically significant; however, it should be interpreted with caution in correlation with other red cell parameters and the patient's clinical condition. RDW 12.4 11.0 - 15.0 % [facility] PLATELET COUNT 266 140 - 400 Thousand/u L [facility] MPV 9.1 7.5 - 12.5 fL [facility] Blood Venous blood specimen / Unknown 01/17/2025 2:12 PM EDT 01/17/2025 2:14 PM EDT Narrative Resulting Agency Comment Performing Organization Information Site ID: QPT Name: [facility] Address: [address] [place] [address], [address] [place] [phone] Director: Yogi Morin MD Tiffany Lucio NP LAB BLOOD ORDERABLES Final Result Performing Organization Address City/[facility]/ZIP Co de Phone Number [facility] * US pelvis transvaginal (01/17/2025 1:53 PM EDT) Anatomical Region Laterality Modality Pelvis Ultrasound 01/17/2025 2:37 PM EDT Impressions 01/17/2025 2:55 PM EDT 1. Right ovarian 1.5 cm benign cyst. 2. Normal uterus, retroversion. TRANSCRIBED BY: ELECTRONICALLY SIGNED BY: Jarett Byrant MD Narrative 01/17/2025 2:55 PM EDT FINDINGS: Uterus 5.8 x 4.8 x 3.9cm Endometrium 3 mm Right Ovary 2.9 x 2.0 2.0 cm Left Ovary 1.4 x 1.6 x 1.0 cm Retroverted uterine body and fundus. Normal myometrium and endometrium. No pelvic fluid. No adnexal mass. Right ovarian 1.5 cm benign cyst. Procedure Note Jarett Bryant MD - 01/17/2025 FINDINGS: Uterus 5.8 x 4.8 x 3.9cm Endometrium 3 mm Right Ovary 2.9 x 2.0 2.0 cm Left Ovary 1.4 x 1.6 x 1.0 cm Retroverted uterine body and fundus. Normal myometrium and endometrium. No pelvic fluid. No adnexal mass. Right ovarian 1.5 cm benign cyst. IMPRESSION: 1. Right ovarian 1.5 cm benign cyst. 2. Normal uterus, retroversion. TRANSCRIBED BY: ELECTRONICALLY SIGNED BY: Jarett Bryant MD us Tiffany Lucio NP IMG US PROCEDURES Final Re sult * POCT Urinalysis dipstick (01/17/2025 1:19 PM EDT) Color, UA [place] Clarity, UA Clear Glucose, UA Negative Negative - 2000(110) ++++ mg/dL Bilirubin, UA Negative Negative - 4(70) +++ mg/dL Ketones, UA Negative Negative - 160(16) ++++ mg/dL Spec Grav, UA 1.000 1 - 1.03 Blood, UA Positive Negative - 50 Oumar/mcL Comment:++ pH, UA 7.0 5 - 9 Protein, UA Negative Negative - 1999(20) ++++ mg/dL Urobilinogen, UA 1.0 0.2 - 12 mg/dL Leukocytes, UA Negative Negative - 500+++ Tenzin/mcL Nitrite, UA Negative Negative - Positive Urine 01/17/2025 1:19 PM EDT Tiffany Lucio NP POINT OF CARE TEST ENTER/E DIT ORDERABLES Final Result * POCT , urine (01/17/2025 1:19 PM EDT) Preg Test, Ur Negative Negative Urine 01/17/2025 1:19 PM EDT Tiffany Lucio NP POINT OF CARE TEST ENTER/E DIT ORDERABLES Final Result documented in this encounter Visit Diagnoses Diagnosis Abdominal cramping Abdominal pain, unspecified site Menorrhagia with irregular cycle Missed period Abdominal cramping Abdominal pain, unspecified site Menorrhagia with irregular cycle Missed period documented in this encounter Additional Health Concerns Assessment Noted Time PHQ-9 Depression Total Score: 15 025 11:00 AM EDT documented as of this encounter Care Teams Electrical Development Engineer Relationship Specialty Start Date End Date Tiffany Lucio, DORIAN [address] [place] [address] Nurse Practitioner Family Medicine 08/14/24 Evon Bey PMHNP- [address] [place] [phone] Nurse Practitioner Behavioral Health 08/20/24 documented as of this encounter
--- OUTSIDE RECORDS SUMMARY | 2025-01-17 13:30 | XMS_ITS | Encounter Summary ---
Author Organization [facility] Address [address] [place] [address] Care Team Providers Care Principal Database Developer Name Role Phone LucioQuirino jeffersonantha Kale SCUBA DIVING INSTRUCTOR Unavailable [phone] Evon Bey PMHNP- Unavailable [phone] Encounter Details Date Type Department Care Team (Latest Contact Info) Description 01/17/2025 1:30 PM EDT Ancillary Procedure [facility] [address] [place] [address] Abdominal cramping; Menorrhagia with irregular cycle; Missed [...] Industry Job Start Date Job End Date [employer] Not on file Not on file Not on file documented as of this encounter Plan of Treatment Upcoming Encounters Date Type Department Care Team (Late st Contact Info) Description 01/31/2025 2:30 PM EDT Treatment [facility] [address] [facility] [address] [place] [address] Garret Yanez, MULTI OPERATION FORMING MACHINE SETTER 02/04/2025 4:00 PM EDT Treatment [facility] [address] [place] [address] Bridget Pugh, MULTI OPERATION FORMING MACHINE SETTER 02/07/2025 3:30 PM EDT Treatment [facility] [address] [place] [address] Bridget Pugh, MULTI OPERATION FORMING MACHINE SETTER 02/11/2025 4:00 PM EDT Treatment [facility] [address] [facility] [address] [place] [address] Kelli Garcia, PT 02/13/2025 4:00 PM EDT Treatment [facility] [address] [facility] [address] [place] [address] Kelli Garcia, PT 02/14/2025 3:30 PM EDT Office Visit [facility] [address] [place] [phone] Lamont Ornelas, SCUBA DIVING INSTRUCTOR [address] [place] [address] 06/04/2025 1:00 PM EST Telemedicine [facility] [address] [facility] [address] [place] [address] Evon Bey, PMHNP-BC [address] [facility] [address] [place] [phone] documented as of this encounter Procedures Procedure Name Priority Date/Time Associated Diagnosis Comments US PELVIS TRANSVAGINAL Routine 01/17/2025 1:53 PM EDT Abdominal cramping Menorrhagia with irregular cycle Missed period documented in this encounter Results * US pelvis transvaginal (01/17/2025 1:53 PM EDT) Anatomical Region Laterality Modality Pelvis Ultrasound 01/17/2025 2:37 PM EDT Impressions 01/17/2025 2:55 PM EDT 1. Right ovarian 1.5 cm benign cyst. 2. Normal uterus, retroversion. TRANSCRIBED BY: ELECTRONICALLY SIGNED BY: Jarett Bryant MD Narrative 01/17/2025 2:55 PM EDT FINDINGS: [...] NP IMG US PROCEDURES Final Re sult documented in this encounter Visit Diagnoses Diagnosis Abdominal cramping Abdominal pain, unspecified site Menorrhagia with irregular cycle Missed period documented in this encounter Additional Health Concerns Assessment Noted Time PHQ-9 Depression Total Score: 15 025 11:00 AM EDT documented as of this encounter Care Teams Principal Database Developer Relationship Specialty Start Date End Date Tiffany Lucio, DORIAN [address] [place] [address] Nurse Practitioner Family Medicine 08/14/24 Evon Bey PMHNP- [address] [address] Nurse Practitioner Behavioral Health 08/20/24 documented as of this encounter
--- OUTSIDE RECORDS SUMMARY | 2025-01-17 14:30 | XMS_ITS | Encounter Summary ---
Author Organization [facility] Address [address] [place] [address] Care Team Providers Care Oven Dumper Name Role Phone Tiffany Lucio NP Unavailable [phone] Evon Bey [facility]- Unavailable Reason for Visit * Rehabilitation - Outpatient (Routine) - Authorized Specialty Diagnoses / Procedures Referred By Stephanie horvath Referred To Contact Physical Therapy Diagnoses Pain of left scapula Neck pain Procedures MA OFFICE/OUTPATIENT [facility] 60 MINUTES Lamont Ornelas, HOT CAR OPERATOR [address] [place] [address] Phone: tel: fax: Kelli Garcia PT Referral ID Status Reason Start Date Expiration Date Visits Requested Visits Authorized [id number] Authorized Specialty Services Required 12/27/2024 05/22/2025 12 12 Encounter Details Date Type Department Care Team (Late st Contact Info) Description 01/17/2025 2:30 PM EDT Treatment [facility] [address] [place] [address] Garret Yanez PTA Pain of left scapula (Primary Dx); Neck pain Social History Tobacco Use Types Packs/Day Years [...] Industry Job Start Date Job End Date [place] Not on file Not on file Not on file documented as of this encounter Progress Notes * Garret Yanez, ANGIOGRAPHY TECHNOLOGIST - 01/17/2025 2:30 PM EDT Images from the original note were not included. Physical Therapy Treatment Visit Patient Name: Yane Wallace Today's Date: 01/17/2025 Encounter Diagnoses Name Primary? Pain of left scapula Yes Neck pain Visit number: 2 Timed Code Treatment Minutes: 45 minutes Total Treatment Time: 55 minutes sindi In: 1430 Time Out: 1525 History: Pt states she has been having pain in neck and left shoulder blade for about one month. States woke up one morning and pain was present. Pt states since then, pain has remained about the same. Was initially given a shot near shoulder blade which helped a few days but then returned. Has been using heating pad and ice at home. Precautions: [place] Subjective: left scapular region. No adverse effects to last session. Self stretches are helping toreduce pain. Pain: 07/30 Objective: PT Evaluation (01/10/2025) CERVICAL AROM: 35 degrees flexion with increase pull, 25 degrees extension without ERP, 25 degrees right SB with pulling left UT, 20 degrees left SB with increase pain, 45 degrees right rotation, 40 degrees left rotation. AROM left shoulder: 88 degrees flexion, 82 degrees abduction, pain at end ranges ER and IR Joint play: decrease mobility left cervical region MMT: left shoulder 3/5 due to pain with MMT in neutral Muscle length: tightness left UT and LS Palpation: moderate to severe tenderness left UT, LS and rhomboids Special Test: Pain with Neer's and empty can testing Neurological: Reflexes: not tested Myotomes: intact Dermatomes: intact Special test: Cervical compression negative; left lower neck pain with bilateral Spurling's Treatment: Education: HEP education with demonstration, Educated on Eval Findings and POC Manual Therapy: (15 minutes) Passive ROM, Joint mobilization, Soft Tissue Mobilization, Myofascial Release, Muscle Energy Technique, Neural Mobilization, Myofascial Cupping, Dry Needling, IASTM, and Scar mobilization as needed. MFD/STM/TPR to Left rhomboids and UT's. Excessive tone was unable to be resolved, but Soft tissue mobility was improved Grade II PA thoracic mobs. Therapeutic Exercise: (30 minutes) Strength, Endurance, Flexibility, ROM, HEP, Neural Mobilization,Power, and Core Stability as needed. Pt performed and instructed in therex for scapular mobility . Therapeutic Activity: Exercises to improve dynamic activities, functional tasks, functional mobility to return to prior activity level as needed. Neuromuscular re-education: Balance Training, Muscle Facilitation, Dynamic Stability, Core Stabilization, and Blood Flow Restriction Training (BFRT) as needed. Modalities: Heat, Ice, Electrical Stimulation, Ultrasound, Cervical Mechanical Traction, Lumbar Mechanical Traction, Iontophoresis, and Fluidotherapy as needed. HP to cervical region in supine X 10 minutes Assessment: Pt is 29 y/o female with complaints of left neck and scapular pain. Pt with moderate tosevere tenderness left scapular region. Limited neck and left shoulder ROM due to pain. Had to keepreps low due to poor tolerance. Poor scapular stability recruitment, despite verbal and tactile cues. Pt reports shoulder/scap soreness following last session. Pt will benefit from further PT. Outcome Measure: Upper Extremity Functional Index (UEFI): 49/80 Rehab Diagnosis: neck pain, left scapular pain Short Term Goal: To be met in 2 weeks Goal 1: Pt to be instructed in home exercise program. Medical Photographer Goals: To be met in 10 weeks Goal 1: Pt to report independence and compliance with home program. Goal 2: Pt to report pain no greater than 2/10 in cervical region with functional mobility and ADL's. Goal 3: Pt to achieve 60 degrees of bilateral cervical rotation to assist with driving and ADL's. Goal 4: Pt to score no less than 65/80 on UEFI indicating improved QOL. Goal 5: Pt to achieve 150 degrees of left shoulder flexion and abduction to assist with overhead reaching. Pt will benefit from skilled PT for 2x/week from 01/10/2025 to 04/04/2025 to address the above impairments. I hereby deem this POC medically necessary. Please sign below. Date: Cosigned by Kelli Garcia, PT at 01/23/2025 3:12 PM EDT documented in this encounter Plan of Treatment Upcoming Encounters Date Type Department Care Team (Late st Contact Info) Description 01/31/2025 2:30 PM EDT Treatment [facility] [address] [facility] [address] [place] [address] Garret Yanez, ANGIOGRAPHY TECHNOLOGIST 02/04/2025 4:00 PM EDT Treatment [facility] [address] [place] [address] Bridget Pugh, ANGIOGRAPHY TECHNOLOGIST 02/07/2025 3:30 PM EDT Treatment [facility] [address] [place] [address] Bridget Pugh, ANGIOGRAPHY TECHNOLOGIST 02/11/2025 4:00 PM EDT Treatment [facility] [address] [place] [address] Kelli Garcia, PT 02/13/2025 4:00 PM EDT Treatment [facility] [address] [facility] [address] [place] [address] Kelli Garcia PT 02/14/2025 3:30 PM EDT Office Visit [facility] [facility] [address] [place] [address] Lamont Ornelas, DORIAN [address] [place] [address] 06/04/2025 1:00 PM EST Telemedicine [facility] [place] [facility] [address] [facility] [address] [place] [address] Evon Bey KAMIN[facility]- [address] [facility] [address] [place] [phone] documented as of this encounter Visit Diagnoses Diagnosis Pain of left scapula- Primary Neck pain Cervicalgia documented in this encounter Additional Health Concerns Assessment Noted Time PHQ-9 Depression Total Score: 15 025 11:00 AM EDT documented as of this encounter Care Teams Oven Dumper Relationship Specialty Start Date End Date Tiffany Lucio NP [address] [place] [address] Nurse Practitioner Family Medicine 08/14/24 Ev[facility] [address] [facility] [address] [place] [address] Nurse Practitioner Behavioral Health 08/20/24 documented as of this encounter
--- OUTSIDE RECORDS SUMMARY | 2025-01-23 15:00 | XMS_ITS | Encounter Summary ---
Author Organization [facility] Address [address] [facility] [place] [address] Care Team Providers Care Site Planner Name Role Phone Lucio Tiffany Kale ALARCON Unavailable [facility] Reason for Visit * Reason Comments Follow-up Med Management PTSD (Post-Traumatic Stress Disorder) Anxiety Depression Encounter Details Date Type Department Care Team (Late st Contact Info) Description 01/23/2025 3:00 PM EDT Telemedicine [facility] [address] [facility] [address] [place] [address] Evon Bey [facility]- [address] [facility] [address] [place] [phone] MONICA (generalized anxiety disorder) ; Severe episode of recurrent major depressive disorder, without psychotic features (HCC); PTSD (post-traumatic stress disorder) ; Panic disorder Social History Tobacco Use Types Packs/Day Years [...] Industry Job Start Date Job End Date [place] Not on file Not on file Not on file documented as of this encounter Progress Notes * Evon Bey, PMHNP-BC - 01/23/2025 3:00 PM EDT Images from the original note were not included. HPI: Yane Wallace is a 29 y.o. female with a history of Asthma, fatty liver, MONICA, Panic disorder, MDD, and PTSD. Patient is here today for follow-up via telehealth. Location of patient: Home; located in [place] Location of provider: Office; located in [place], [place] Patient seen via: GetNotes Telehealth; audio and video utilized Reason for televisit: Transportation issues; Convenience; Access to care Total time spent with patient: 12 minutes Did patient gave verbal consent for today's visit? Yes No medication changes were made at patient's last appointment on 10/29/24. She states that she started taking 50 mg of her Sertraline in mid-November due to feeling like it was too much. She states that she can't describe what was going on but feels better on lower dose of medication. She was started on Elavil by her Neurologist for her migraines and sleep. She states that this has helped. She states she got cleared by GI doctor and doesn't have to see them again until June. She states eating habits are back to normal. She continues to see Isabela via telehealth on a regular basis for counseling. SUBJECTIVE: PAST MEDICAL HISTORY: Past Medical History: Diagnosis Date Anxiety Depression Diverticulitis Esophagitis Gastritis Hemorrhoids Hiatal hernia IBS (irritable bowel syndrome) Irritable bowel syndrome with both constipation and diarrhea Panic attack MEDICATIONS: Current Outpatient Medications Medication Instructions albuterol [...] Daily ALLERGIES: Allergies Allergen Reactions Nickel Rash SURGICAL HISTORY: Past Surgical History: Procedure Laterality Date APPENDECTOMY 06/2018 COLONOSCOPY 05/17/2023 ESOPHAGOGASTRODUODENOSCOPY 2022 FAMILY HISTORY: Family History Problem Relation Name Age of [...] Hypertension Paternal Grandfather Heart disease Paternal Grandfather SOCIAL HISTORY: Social History Tobacco Use Smoking status: Never Passive exposure: Never Smokeless tobacco: Never Tobacco comments: Pt vapes daily. Vaping Use Vaping status: Every Day Substances: Nicotine, Flavoring Devices: Disposable Substance Use Topics Alcohol use: Not Currently Alcohol/week: 0.0 - 4.0 standard drinks of alcohol Comment: caffiene- 1 tea maybe daily 1-2 pops weekly Drug use: Never Patient Care Team: Tiffany Lucio NP as Nurse Practitioner (Family Medicine) PRO Gill- as Nurse Practitioner (Behavioral Health) PSYCHIATRIC REVIEW OF SYMPTOMS AND MENTAL STATUS EXAM ROS: Patient denies fatigue, malaise, night sweats, weight loss, weight gain, cough, SOB, palpitations, chest pain, insomnia, dysphagia, abdominal pain, N/V/D, pruritus, rash, headache, dizziness, seizures, tremors, headache. Appearance Appearance: Normal grooming and hygiene. Appears stated age. Dressed appropriately for weather. Behavior Calm, cooperative, pleasant. Good posture. Psychomotor Activity Intact. No abnormal movements noted. Eye contact Good Speech Normal, clear, regular rate, rhythm and volume Affect Full range. Stable. Appropriate and congruent with mood. Mood Euthymic Thought Process Organized, logical, and goal directed Thought Content: Denies suicidal and homicidal ideation. Perception: Denies auditory or visual hallucinations. No evidence of delusions. Denies derealization and depersonalization. Cognition Alert and attentive during visit Memory Immediate, recent and remote memory intact Insight Good. Acknowledges predominant symptoms of illness and need for treatment Judgement Good. Able to make reasonable life decisions. OBJECTIVE: Visit Vitals OB Status Having periods Smoking Status Never Lab Results Component Value Date TSH 0.99 07/31/2024 Lab Results Component Value Date GLU 81 07/19/2024 CALCIUM 9.4 07/19/2024 NA 134 (L) 07/19/2024 K 3.8 07/19/2024 CO2 24 07/19/2024 CL 99 07/19/2024 BUN 6 (L) 07/19/2024 CREATININE 0.60 07/19/2024 Lab Results Component Value Date WBC 6.2 07/19/2024 HGB 13.8 07/19/2024 HCT 41.2 07/19/2024 MCV 97.6 07/19/2024 PLT 243 07/19/2024 07/19/24 - CMP (AST 49, ALT 41) 07/31/24 - TSH, Iron studies (Iron 35), Sed rate, FERNY, Rheumatoid factor, Uric acid ASSESSMENT AND PLAN: Impression: Patient's symptoms consistent with MONICA, MDD, PTSD, and panic disorder. She does not fitfull criteria for bipolar disorder at this time but was educated on continuing to monitor for this due to her family history. If noted to have this in the future, will add mood stabilizer. She reports doing well on current dose of Sertraline after she decreased dose back to 50 mg. She desires to continue current dose. Patient made aware of my maternity leave this Fall, as well as coverage, plan for medication refills, and if any concerns arise. Assessment/Plan Diagnoses and all orders for this visit: MONICA (generalized anxiety disorder) Severe episode of recurrent major depressive disorder, without psychotic features (HCC) PTSD (post-traumatic stress disorder) Panic disorder Treatment Plan/Recommendations: - Continue Sertraline 50 mg for anxiety, depression, and PTSD. - Continue counseling for additional mental health support and treatment. - RTC in May. Discussed any medication changes and follow-up plan with patient. Encouraged patient to call office sooner if symptoms worsen or if any questions/concerns arise. Patient was seen Televisit - Audio and Visual, Total time spent with patient was 12 minutes, which includes reviewing chart documents, previous notes/records, counseling and discussion with patient and/or coordination of care as described above. documented in this encounter Plan of Treatment Upcoming Encounters Date Type Department Care Team (Late st Contact Info) Description 01/31/2025 2:30 PM EDT Treatment [facility] [address] [facility] [address] [place] [address] Garret Yanez, KALSOMINER 02/04/2025 4:00 PM EDT Treatment [facility] [address] [facility] [address] [place] [address] Bridget Pugh, KALSOMINER 02/07/2025 3:30 PM EDT Treatment [facility] [address] [place] [address] Bridget Pugh, KALSOMINER 02/11/2025 4:00 PM EDT Treatment [facility] [address] [place] [address] Kelli Garcia, PT 02/13/2025 4:00 PM EDT Treatment [facility] [address] [place] [address] Kelli Garcia PT 02/14/2025 3:30 PM EDT [facility] [address] [place] [phone] Lamont Ornelas, DORIAN [address] [place] [address] 06/04/2025 1:00 PM EST Telemedicine [facility] [address] [facility] [address] [place] [address] Evon Bey, [facility]- [address] [facility] [address] [place] [address] documented as of this encounter Visit Diagnoses Diagnosis MONICA (generalized anxiety disorder) Generalized anxiety disorder Severe episode of recurrent major depressive disorder, without psychotic features ([facility]) PTSD (post-traumatic stress disorder) Posttraumatic stress disorder Panic disorder Panic disorder without agoraphobia documented in this encounter Additional Health Concerns Assessment Noted Time PHQ-9 Depression Total Score: 15 025 11:00 AM EDT documented as of this encounter Care Teams Site Planner Relationship Specialty Start Date End Date Tiffany Lucio NP [address] [place] [address] Nurse Practitioner Family Medicine 08/14/24 Evon Bey [facility]- [address] [facility] [address] [place] [address] Nurse Practitioner Behavioral Health 08/20/24 documented as of this encounter
--- OUTSIDE RECORDS SUMMARY | 2025-01-29 20:58 | XMS_ITS | Encounter Summary ---
Author Organization [facility] Address [address] [facility] [place] [address] Care Team Providers Care Student Teaching Coordinator Name Role Phone Jossie Aguiar MD Primary Care Provider Tiffany Lucio [facility] Unavailable [phone] Evon Bey [facility] Unavailable [phone] Reagan Pompa NP Unavailable [phone] Encounter Details Date Type Department Care Team (Late st Contact Info) Description 08/26/2024 [facility] [address] [place] [phone] Tiffany Lucio NP [address] [place], [place] [id number] Social History Tobacco Use Types Packs/Day Years Used Date Smoking Tobacco: Never Smokeless Tobacco: Never Comments:Pt vapes daily. Alcohol Use Standard Drinks/Week Comments Yes 0 (1 standard drink = 0.6 oz [...] Answer Date Recorded Patient Health Questionnaire-2 Score 1 08/28/2024 Education Answer Date Recorded What is the [...] Industry Job Start Date Job End Date [employer] Not on file Not on file Not on file documented as of this encounter Functional Status * Over the past 2 weeks, how often have you been bothered by any of the following problems? Question Answer Date of Assessment Author Little interest or pleasure in doing things Several days 08/28/2024 11:00 AM Sa nicole Avitia NP Feeling down, depressed, or hopeless Not at all 08/28/2024 11:00 AM Michelle Avitia NP Patient Health Questionnaire-2 Score 1 08/28/2024 11:00 AM Ravi Avitia NP * Question Answer Date of Assessment Author Trouble falling or staying asleep, or sleeping too much Nearly every day 08/28/2024 11:00 AM Tiffany Avitia NP Feeling tired or having little energy Nearly every day 08/28/2024 11:00 AM Tiffany Avitia NP Poor appetite or overeating Nearly every day 08/28/2024 11:00 AM Tiffany Avitia NP Feeling bad about yourself - or that you are a failure or have let yourself or your family down Several days 08/28/2024 11:00 AM Tiffany Avitia NP Trouble concentrating on things, such as reading the newspaper or watching television More than half the days 08/28/2024 11:00 AM Tiffany Avitia NP Moving or speaking so slowly that other people could have noticed? Or the opposite - being so fidgety or restless that you have been moving around a lot more than usual. More than half the days 08/28/2024 11:00 AM EDT Tiffany Lucio NP Thoughts that you would be better off or hurting yourself in some way Not at all 08/28/2024 11:00 AM EDT Tiffany Lucio NP Patient Health Questionnaire-9 Score 15 08/28/2024 11:00 AM EDT Tiffany Lucio NP documented as of this encounter Plan of Treatment Upcoming Encounters Date Type Department Care Team (Late st Contact Info) Description 01/31/2025 2:30 PM EDT Treatment [facility] [address] [place] [address] Garret Yanez, BLOOD TESTER 02/04/2025 4:00 PM EDT Treatment [facility] [address] [place] [address] Bridget Pugh, BLOOD TESTER 02/07/2025 3:30 PM EDT Treatment [facility] [address] [place] [address] Bridget Pugh, BLOOD TESTER 02/11/2025 4:00 PM EDT Treatment [facility] [address] [place] [address] Kelli Garcia, PT 02/13/2025 4:00 PM EDT Treatment [facility] [address] [facility] [address] [place] [address] Kelli Garcia, PT 02/14/2025 3:30 PM EDT Office Visit [facility] [address] [place] [phone] Lamont Ornelas NP [address] [place] [address] 06/04/2025 1:00 PM EST Telemedicine [facility] [address] [facility] [address] [place] [address] Evon Bey [facility] [address] [facility] [address] [place] [address] documented as of this encounter Visit Diagnoses Not on filedocumented in this encounter Additional Health Concerns Assessment Noted Time PHQ-9 Depression Total Score: 23 025 1:25 PM EDT documented as of this encounter Care Teams Student Teaching Coordinator Relationship Specialty Start Date End Date Jossie Aguiar MD PCP - General Family Medicine 07/31/24 12/05/24 Tiffany Lucio NP [address] [facility] [place] [address] Nurse Practitioner Family Medicine 08/14/24 Evon Bey, [facility] [address] [facility] [address] [place] [address] Nurse Practitioner Behavioral Health 08/20/24 Reagan Pompa NP [address] [facility] [address] [place] [address] Referring Physician Gastroenterology 08/20/24 12/05/24 documented as of this encounter
--- OUTSIDE RECORDS SUMMARY | 2025-01-29 20:58 | XMS_ITS | Encounter Summary ---
Author Organization [facility] Address [address] [facility] [place] [address] Care Team Providers Care Vending Route Driver Name Role Phone Rahel Childress MD Primary Care Provider [phone] Unallocated, Noms Provider Primary Care Provi philip Rahel Childress MD Unavailable Jossie Aguiar MD Primary Care Provider Tiffany Lucio CLINICAL INFORMATICS DIRECTOR Unavailable [phone] Evon Bey [facility] Unavailable Reagan Pompa NP Unavailable [phone] Encounter Details Date Type Department Care Team (Late st Contact Info) Description 03/04/2023 Abstract [facility] [address] [facility] 110 [place] [address] Rahel Childress MD [address] [facility] 110 [place] [address] Social History Tobacco Use Types Packs/Day Years Used Date Smoking Tobacco: Never Assessed Comments Unknown Sex and Gender Information Value Date Recorded Sex Assigned at Female 07/19/2024 10:15 AM EST Legal Sex Female 8:01 PM EDT Gender Identity Female 07/19/2024 10:15 AM EST Sexual Orientation Not on file documented as of this encounter Plan of Treatment Upcoming Encounters Date Type Department Care Team (Late st Contact Info) Description 01/31/2025 2:30 PM EDT Treatment [facility] [address] [place] [address] Garret Yanez, GAS STOVE SERVICER HELPER 02/04/2025 4:00 PM EDT Treatment [facility] [address] [place] [address] Bridget Pugh, GAS STOVE SERVICER HELPER 02/07/2025 3:30 PM EDT Treatment [facility] [address] [place] [address] Bridget Pugh, GAS STOVE SERVICER HELPER 02/11/2025 4:00 PM EDT Treatment [facility] [address] [place] [address] Kelli Garcia, PT 02/13/2025 4:00 PM EDT Treatment [facility] [address] [place] [address] Kelli Garcia, PT 02/14/2025 3:30 PM EDT Office Visit [facility] [address] [place] [address] Lamont Ornelas, CLINICAL INFORMATICS DIRECTOR [address] [place] [address] 06/04/2025 1:00 PM EST Telemedicine [facility] [address] [place] [address] Evon Bey, [facility]- [address] [place] [id number] documented as of this encounter Visit Diagnoses Not on filedocumented in this encounter Care Teams Vending Route Driver Relationship Specialty Start Date End Date Rahel Childress MD PCP - General Family Medicine 02/20/23 07/31/23 Unallocated, Noms MD Kvng [address] [facility] [place] [address] PCP - General Family Medicine 08/01/23 07/30/24 Jossie Aguiar MD [address] [place] [address] PCP - General Family Medicine 07/31/24 12/05/24 Rahel Childress MD [address] [place], [place] [id number] Family Medicine 02/20/23 07/30/24 Tiffany Lucio NP [address] [place], [place] [phone] Nurse Practitioner Family Medicine 08/14/24 Evon Bey, [facility] [address] [facility] 160 [place] [address] Nurse Practitioner Behavioral Health 08/20/24 Reagan Pompa NP [address] [facility] 160 [place] [address] Referring Physician Gastroenterology 08/20/24 12/05/24 documented as of this encounter
--- OUTSIDE RECORDS SUMMARY | 2025-01-29 20:58 | XMS_ITS | Encounter Summary ---
Author Organization [facility] Address [address] [facility] [place] [address] Care Team Providers Care Farm Instructor Name Role Phone Jossie Aguiar MD Primary Care Provider Tiffany Lucio [employer] Unavailable Evon Bey [facility] Unavailable Reagan Pompa NP Unavailable [phone] Encounter Details Date Type Department Care Team (Late st Contact Info) Description 08/26/2024 [facility] [address] [place] [id number] Tiffany Lucio NP [address] [place], [place] [id number] Social History Tobacco Use Types Packs/Day Years [...] Industry Job Start Date Job End Date [employer] Not on file Not on file Not [...] Therapy [address] [place] [address] Garret Yanez, MOTORCYCLE RACER 02/04/2025 4:00 PM EDT Treatment [facility] [address] [place] [address] Bridget Pugh, MOTORCYCLE RACER 02/07/2025 3:30 PM EDT Treatment [facility] [address] [place] [address] Bridget Pugh, MOTORCYCLE RACER 02/11/2025 4:00 PM EDT Treatment [facility] [address] [place] [address] Kelli Garcia, PT 02/13/2025 4:00 PM EDT Treatment [facility] [address] [facility] [address] [place] [address] Kelli Garcia, PT 02/14/2025 3:30 PM EDT Office Visit [facility] [address] [place] [address] Lamont Ornelas NP [address] [place] [address] 06/04/2025 1:00 PM EST Telemedicine [facility] [address] [place] [address] Evon Bey [facility] [address] [facility] 160 [place] [address] documented as of this encounter Visit Diagnoses Not on filedocumented in this encounter Additional Health Concerns Assessment Noted Time PHQ-9 Depression Total Score: 23 025 1:25 PM EDT documented as of this encounter Care Teams Farm Instructor Relationship Specialty Start Date End Date Jossie Aguiar MD PCP - General Family Medicine 07/31/24 12/05/24 Tiffany Lucio NP [address] [facility] [place] [address] Nurse Practitioner Family Medicine 08/14/24 Evon Bey, [facility] [address] [facility] 160 [place] [address] Nurse Practitioner Behavioral Health 08/20/24 Reagan Pompa NP [address] [facility] 160 [place] [address] Referring Physician Gastroenterology 08/20/24 12/05/24 documented as of this encounter
--- OUTSIDE RECORDS SUMMARY | 2025-01-29 20:58 | XMS_ITS | Encounter Summary ---
Author Organization [facility] Address [address] [facility] [place] [address] Care Team Providers Care Stripper Latex Name Role Phone LucioQuirino jeffersonantha Kale PROFESSIONAL NURSING ASSISTANT Unavailable [phone] Evon Bey PMHNP- Unavailable Encounter Details Date Type Department Care Team (Latest Contact Info) Description 01/17/2025 Travel Social History Tobacco Use Types Packs/Day Years [...] Industry Job Start Date Job End Date [place] Not on file Not on file Not on file documented as of this encounter Plan of Treatment Upcoming Encounters Date Type Department Care Team (Late st Contact Info) Description 01/31/2025 2:30 PM EDT Treatment [facility] [address] [place] [address] Garret Yanez, TRIPLE AIR VALVE TESTER 02/04/2025 4:00 PM EDT Treatment [facility] [address] [place] [address] Bridget Pugh, TRIPLE AIR VALVE TESTER 02/07/2025 3:30 PM EDT Treatment [facility] [address] [place] [address] Bridget Pugh, TRIPLE AIR VALVE TESTER 02/11/2025 4:00 PM EDT Treatment [facility] [address] [place] [address] Kelli Garcia, PT 02/13/2025 4:00 PM EDT Treatment [facility] [address] [facility] [address] [place] [address] Kelli Garcia, PT 02/14/2025 3:30 PM EDT Office Visit [facility] [address] [place] [address] Lamont Ornelas, PROFESSIONAL NURSING ASSISTANT [address] [place] [address] 06/04/2025 1:00 PM EST Telemedicine [facility] [address] [facility] [address] [place] [address] Evon Bey, PMHNP- [address] [facility] [address] [place] [address] documented as of this encounter Visit Diagnoses Not on filedocumented in this encounter Additional Health Concerns Assessment Noted Time PHQ-9 Depression Total Score: 15 08/28/ 025 11:00 AM EDT documented as of this encounter Care Teams Stripper Latex Relationship Specialty Start Date End Date Tiffany Lucio NP [address] [facility] [place] [address] Nurse Practitioner Family Medicine 08/14/24 Evon Bey PMHNP- [address] [facility] 160 [place] [address] Nurse Practitioner Behavioral Health 08/20/24 documented as of this encounter
--- OUTSIDE RECORDS SUMMARY | 2025-01-29 20:58 | XMS_ITS | Encounter Summary ---
Author Organization [facility] Address [address] [facility] [place] [address] Care Team Providers Care Registered Nurse Name Role Phone Rahel Childress MD Primary Care Provider [phone] Unallocated, Noms Provider Primary Care Provi philip Rahel Childress MD Unavailable Jossie Aguiar MD Primary Care Provider [phone] Tiffany Lucio HEARING AID CONSULTANT Unavailable [phone] Evon Bey [facility] Unavailable Reagan Pompa NP Unavailable [phone] Encounter Details Date Type Department Care Team (Late st Contact Info) Description 03/28/2023 Abstract [facility] [address] [facility] 110 [place] [address] Rahel Childress MD [address] [facility] 110 [place] [address] Social History Tobacco Use Types Packs/Day Years [...] [address] [place] [address] Garret Yanez, REGIONAL GUIDE 02/04/2025 4:00 PM EDT Treatment [facility] [address] [place] [address] Bridget Pugh, REGIONAL GUIDE 02/07/2025 3:30 PM EDT Treatment [facility] [address] [place] [address] Bridget Pugh, REGIONAL GUIDE 02/11/2025 4:00 PM EDT Treatment [facility] [address] [place] [address] Kelli Garcia, PT 02/13/2025 4:00 PM EDT Treatment [facility] [address] [place] [address] Kelli Garcia, PT 02/14/2025 3:30 PM EDT Office Visit [facility] [address] [place] [address] Lamont Ornelas, HEARING AID CONSULTANT [address] [place] [address] 06/04/2025 1:00 PM EST Telemedicine [facility] [address] [place] [address] Evon Bey, [facility]- [address] [place] [address] documented as of this encounter Visit Diagnoses Not on filedocumented in this encounter Care Teams Registered Nurse Relationship Specialty Start Date End Date Rahel Childress MD PCP - General Family Medicine 02/20/23 07/31/23 Unallocated, Noms MD Kvng [address] [facility] [place] [address] PCP - General Family Medicine 08/01/23 07/30/24 Jossie Aguiar MD [address] [place] [address] PCP - General Family Medicine 07/31/24 12/05/24 Rahel Cihldress MD [address] [place], [place] [address] Family Medicine 02/20/23 07/30/24 Tiffany Lucio NP [address] [place], [place] [address] Nurse Practitioner Family Medicine 08/14/24 Evon Bey, [facility] [address] [facility] 160 [place] [address] Nurse Practitioner Behavioral Health 08/20/24 Reagan Pompa NP [address] [facility] 160 [place] [address] Referring Physician Gastroenterology 08/20/24 12/05/24 documented as of this encounter
--- OUTSIDE RECORDS SUMMARY | 2025-01-29 20:58 | XMS_ITS | Encounter Summary ---
Author Organization [facility] Address [address] [facility] [place] [address] Care Team Providers Care Stevedore Hold Name Role Phone Rahel Childress MD Primary Care Provider [phone] Unallocated, Noms Provider Primary Care Provi philip Rahel Childress MD Unavailable Jossie Aguiar MD Primary Care Provider Tiffany Lucio LIBRARIAN HEAD Unavailable Evon Bey [facility] Unavailable Reagan Pompa NP Unavailable [phone] Encounter Details Date Type Department Care Team (Late st Contact Info) Description 03/04/2023 Orders Only [facility] [address] [place] [address] A, Unknown Practice [address] [place] [address] Social History Tobacco Use Types Packs/Day Years [...] [facility] [address] [place] [address] FrancineirlandaGarret, DOCUMENT MANAGER 02/04/2025 4:00 PM EDT Treatment [facility] [address] [place] [address] Bridget Pugh, DOCUMENT MANAGER 02/07/2025 3:30 PM EDT Treatment [facility] [address] [place] [address] Bridget Pugh, DOCUMENT MANAGER 02/11/2025 4:00 PM EDT Treatment [facility] [address] [place] [address] Kelli Garcia, PT 02/13/2025 4:00 PM EDT Treatment [facility] [address] [place] [address] Kelli Garcia, PT 02/14/2025 3:30 PM EDT Office Visit [facility] [address] [place] [address] Lamont Ornelas, LIBRARIAN HEAD [address] [place] [address] 06/04/2025 1:00 PM EST Telemedicine [facility] [address] [facility] [address] [place] [address] Evon Bey, PMP- [address] [facility] [address] [place] [address] documented as of this encounter Procedures Procedure Name Priority Date/Time Associated Diagnosis Comments ELECTROCARDIOGRAM REPORT Routine 023 10:04 AM EDT US VENOUS DUPLEX UPPER EXT RT Routine 03/03/2023 8:52 AM EDT MRI : ABDOMEN Routine 03/03/2023 8:43 AM EDT documented in this encounter Results * Electrocardiogram Report (03/03/2023 10:04 AM EDT) us Unknown Practice A IN CLINIC/BEDSIDE ORDERABLES Final Result * US VENOUS DUPLEX UPPER EXT RT (03/03/2023 8:52 AM EDT) Anatomical Region Laterality Modality Radiographic Sofía ging us Unknown Practice A IMG XR PROCEDURES Final Resul t * MRI : ABDOMEN (03/03/2023 8:43 AM EDT) Anatomical Region Laterality Modality Radiographic Sofía ging us Unknown Practice A IMG XR PROCEDURES Final Resul t documented in this encounter Visit Diagnoses Not on filedocumented in this encounter Care Teams Stevedore Hold Relationship Specialty Start Date End Date Rahel Childress MD PCP - General Family Medicine 02/20/23 07/31/23 Unallocated, Noms ProviderMD [address] [place] [address] PCP - General Family Medicine 08/01/23 07/30/24 Jossie Aguiar MD [address] [facility] 110 [place] [address] PCP - General Family Medicine 07/31/24 12/05/24 Rahel Childress MD [address] [facility] 110 [place] [address] Family Medicine 02/20/23 07/30/24 Tiffany Lucio NP [address] [place] [place], [place] [address] Nurse Practitioner Family Medicine 08/14/24 Evon Bey, [facility]- [address] [facility] 160 [place] [address] Nurse Practitioner Behavioral Health 08/20/24 Reagan Pompa NP [address] [address] [place] [address] Referring Physician Gastroenterology 08/20/24 12/05/24 documented as of this encounter
--- OUTSIDE RECORDS SUMMARY | 2025-01-29 20:58 | XMS_ITS | Clinical Summary ---
Author Organization [facility] Address [address] [place] [address] Care Team Providers Care Customer Care Assistant Name Role Phone LucioQuirino jeffersonyana Henley MANAGER BABY Unavailable [phone] Evon Bey PMHNP-BC Unavailable Allergies Active Allergy Reactions Criticality Noted Date Comments Nickel Rash Low 05/21/2024 Medications docusate sodium (Colace) 100 MG capsule Take 100 mg by mouth as needed in the morning and 100 mg as needed in the evening for constipation. Active hydrocortisone 2.5 % cream Daily as needed for irritation or rash 06/13/19 25 Active dicyclomine (Bentyl) 20 MG tablet Take 20 mg by mouth as needed in the morning and 20 mg as needed at noon and 20 mg as needed in the evening. Active albuterol HFA 90 mcg/act inhalerIndication s:History of asthma Inhale 2 puffs every 4 (four) hours if needed for shortness of breath or wheezing 18 g 08/01/19 25 Active pantoprazole (ProtoNix) 40 MG EC tablet Take 40 mg by mouth in the morning and 40 mg before bedtime. Do not crush, chew, or split. Active norgestimate-ethi nyl estradiol (Tri-Sprintec) 0.18/0.215/0.25 MG-35 MCG tabletIndications :Encounter for initial prescription of contraceptive pills Take 1 tablet by mouth Daily 28 tablet 12 08/29/19 25 2025 Active cyclobenzaprine (Flexeril) 10 MG tabletIndications :Chronic midline low back pain without sciatica Take 1 tablet (10 mg) by mouth 3 (three) times a day as needed for muscle spasms for up to 10 days Recommend cutting in half. 30 tablet 08/29/19 25 Active ondansetron ODT (Zofran-ODT) 4 MG disintegrating tabletIndications :Nausea Take 1 tablet (4 mg) by mouth every 8 (eight) hours if needed for nausea 20 tablet 11/13/19 25 Active rizatriptan (Maxalt) 10 MG tablet Take 1 tablet just after onset of migraine. May repeat the dose after 2 hours if migraine persists. Max of 2 doses per 24 hours. 12/25/19 25 Active amitriptyline (Elavil) 25 MG tablet Take 25 mg by mouth at bedtime 12/25/19 25 Active sertraline (Zoloft) 50 MG tabletIndications :MONICA (generalized anxiety disorder),Severe episode of recurrent major depressive disorder, without psychotic features (HCC),PTSD (post-traumatic stress disorder),Panic disorder Take 1 tablet (50 mg) by mouth Daily 01/24/20 25 2024 Active sertraline (Zoloft) 100 MG tabletIndications :MONICA (generalized anxiety disorder),Severe episode of recurrent major depressive disorder, without psychotic features (HCC),PTSD (post-traumatic stress disorder),Panic disorder Take 1 tablet (100 mg) by mouth Daily 30 tablet 3 10/30/19 25 2024 Discontinued Active Problems Problem Noted Date Diagnosed Date History of colitis 09/04/2024 Nausea & vomiting 09/04/2024 Chronic midline low back pain without sciatica 0 08/28/2024 MONICA (generalized anxiety disorder) 08/28/2024 Major depression 08/28/2024 PTSD (post-traumatic stress disorder) 08/28/2024 Panic disorder 08/28/2024 Hepatic steatosis 07/31/2024 Liver mass 07/31/2024 Hemorrhoids 07/31/2024 Irritable bowel syndrome wit h both constipation and diarrhea 07/31/2024 Esophagitis 07/31/2024 Gastritis 07/31/2024 Hiatal hernia 07/31/2024 History of asthma 07/31/2024 Rectal bleeding 07/31/2024 Rectal pain 07/31/2024 Constipation 07/27/2024 Colitis 07/27/2024 Duodenitis 07/27/2024 Resolved Problems Problem Noted Date Diagnosed Date Resolved Date Metabolic acidosis 09/04/2024 Change in bowel habits 09/04/202410/29 Microscopic colitis 07/27/2024 08/01/19 25 Encounters Date Type Department Care Team Description 01/23/2025 3:00 PM EDT Telemedicine [facility] [address] [facility] [address] [place] [address] Evon Bey, MEIHNP- MONICA (generalized anxiety disorder) ; Severe episode of recurrent major depressive disorder, without psychotic features (HCC); PTSD (post-traumatic stress disorder) ; Panic disorder 01/22/2025 Telephone [facility] [address] [facility] [address] [place] [address] Garret Yanez, PATIENT CARE Bronchitiis; Still ill 01/17/2025 2:30 PM EDT Treatment [facility] [address] [facility] [address] [place] [address] Garret Yanez, PATIENT CARE Pain of left scapula (Primary Dx); Neck pain 01/17/2025 1:30 PM EDT Ancillary Procedure [facility] [address] [facility] [address] [place] [phone] Abdominal cramping; Menorrhagia with irregular cycle; Missed period 01/17/2025 1:00 PM EDT Office Visit [facility] [address] [place] [address] Tiffany Lucio NP Abdominal cramping; Menorrhagia with irregular cycle; Missed period 01/17/2025 Results Follow-Up [facility] [address] [place] [phone] MA US pelvis transvaginal, POCT , urine, POCT Urinalysis dipstick, Additional followed-up results: 2 01/17/2025 Bamboo flowsheet [facility] [address] [place] [address] Tiffany Lucio NP 01/17/2025 Travel 01/10/2025 9:00 AM EDT Evaluation [facility] [address] [place] [address] Kelli Garcia, PT Pain of left scapula (Primary Dx); Neck pain 01/10/2025 Plan of Care Documentation [facility] [address] [place] [address] 01/10/2025 Bamboo flowsheet [facility] [address] [place] [address] Kelli Garcia, PT 01/10/2025 Travel 12/27/2024 2:30 PM EDT Office Visit [facility] [address] [facility] [address] Lamont Ornelas, MANAGER BABY Pinched nerve in shoulder, left (Primary Dx); Pain of left scapula; Neck pain 12/27/2024 Bamboo flowsheet [facility] [address] [place] [address] Lamont Ornelas NP 12/27/2024 Travel 12/24/2024 Telephone [facility] [address] [place] [address] MA 12/06/2024 2:45 PM EDT Office Visit [facility] [address] [place] [address] Lamont Ornelas, MANAGER BABY Pain of left scapula (Primary Dx); Pinched nerve in shoulder, left; Trigger point of left shoulder region 12/06/2024 Bamboo flowsheet [facility] [address] [facility] [address] Lamont Ornelas NP 12/06/2024 Travel 11/29/2024 10:00 AM EDT Office Visit [facility] [address] [facility] [address] Tiffany Lucio NP Acute pain of left shoulder (Primary Dx); Nausea and vomiting, unspecified vomiting type; History of colitis; Moderate episode of recurrent major depressive disorder (HCC) 11/29/2024 9:30 AM EDT Ancillary Procedure [facility] [address] [facility] [address] [place] [address] Acute pain of left shoulder 11/29/2024 Results Follow-Up [facility] [address] [facility] [place] [address] Gayle Boateng MA XR shoulder 2+ views left 11/29/2024 Bamboo flowsheet [facility] [address] [facility] [place] [address] Tiffany Lucio NP 11/29/2024 Travel 11/20/2024 Telephone [facility] [address] [facility] [place] [address] Tiffany Lucio NP 11/12/2024 Refill [facility] [address] [facility] [place] [address] Jossie Aguiar MD Nausea 10/29/2024 3:00 PM EDT Office Visit [facility] [address] [place] [address] Evon Bey [facility]- MONICA (generalized anxiety disorder) ; Severe episode of recurrent major depressive disorder, without psychotic features (HCC); PTSD (post-traumatic stress disorder) ; Panic disorder 10/29/2024 [facility] [address] [facility] [address] [place] [address] Evon Bey PMHNP-BC 10/29/2024 Travel from Last 3 Months Immunizations Immunization Administration Dates Next Due Td (adult), 5 Lf tetanus tox oid, preservative free, adsorbed 04/23/2018 Family History Medical History Relation Name Comments Anxiety disorder Brother Bipolar disorder Brother Alcohol abuse Father Bipolar disorder Father Diverticulitis Father Hypertension Father Skin cancer Father Colon cancer Maternal Grandfather Aneurysm Maternal Grandmother Depression Maternal Grandmother Alcohol abuse Mother Anxiety disorder Mother Bipolar disorder Mother Carpal tunnel syndrome Mother Neuropathy Mother Heart disease Paternal Grandfather Hypertension Paternal Grandfather Breast cancer Paternal Grandmother Heart disease Paternal Grandmother Relation Name Status Comments Brother Father Alive Maternal Grandfather Maternal Grandmother Mother Alive Paternal Grandfather Paternal Grandmother Social History Tobacco Use Types Packs/Day Years Used Date Smoking Tobacco: Never Passive Smoke Exposure: Never Smokeless Tobacco: Never Tobacco Cessation:Counseling Given: Not Answered Comments:Pt vapes daily. Alcohol Use Standard Drinks/Week [...] Industry Job Start Date Job End Date [employer] Not on file Not on file Not on file Last Filed Vital Signs Vital Sign Reading Time Taken Comments Blood Pressure 128/90 01/17/2025 1:07 PM EDT Pulse 84 01/17/2025 1:07 PM EDT Temperature - - Respiratory Rate - - Oxygen Saturation 99% 11/29/2024 10:06 AM EDT Inhaled Oxygen Concentration - - Weight 63 kg (139 lb) 11/29/2024 10:06 AM EDT Height 153.7 cm (5' 0.5 ) 08/28/2024 11:00 AM ED T Body Mass Index 26.7 08/28/2024 11:00 AM EDT Plan of Treatment Upcoming Encounters Date Type Department Care Team (Late st Contact Info) Description 01/31/2025 2:30 PM EDT Treatment [facility] [address] [facility] [address] [place] [address] Garret Yanez, PATIENT CARE 02/04/2025 4:00 PM EDT Treatment [facility] [address] [facility] [address] [place] [address] Bridget Pugh, PATIENT CARE 02/07/2025 3:30 PM EDT Treatment [facility] [address] [facility] [address] [place] [address] Bridget Pugh, PATIENT CARE 02/11/2025 4:00 PM EDT Treatment [facility] [address] [facility] [address] [place] [address] Kelli Garcia, PT 02/13/2025 4:00 PM EDT Treatment [facility] [address] [facility] [address] [place] [address] Kelli Gacria, PT 02/14/2025 3:30 PM EDT Office Visit [facility] [address] [place] [address] Lamont Ornelas, MANAGER BABY [address] [place] [address] 06/04/2025 1:00 PM EST Telemedicine [facility] [address] [facility] [address] [place] [address] Evon Bey, PMHNP- [address] [facility] [address] [place] [address] Procedures Procedure Name Priority Date/Time Associated Diagnosis Comments HCG, TOTAL, QN Routine 01/17/2025 2:12 PM EDT Abdominal cramping Menorrhagia with irregular cycle Missed period CBC Routine 01/17/2025 2:12 PM EDT Abdominal cramping Menorrhagia with irregular cycle Missed period US PELVIS TRANSVAGINAL Routine 01/17/2025 1:53 PM EDT Abdominal cramping Menorrhagia with irregular cycle Missed period POCT URINALYSIS DIPSTICK Routine 01/17/2025 1:19 PM EDT Abdominal cramping Menorrhagia with irregular cycle POCT , URINE Routine 01/17/2025 1:19 PM EDT Abdominal cramping Menorrhagia with irregular cycle AK INJECTION SINGLE/BOLT SORTER TRIGGER POINT 1/2 MUSCLES Routine 12/06/2024 3:16 PM EDT Pain of left scapula Pinched nerve in shoulder, left Trigger point of left shoulder region XR SHOULDER 2+ VIEWS LEFT Routine 11/29/2024 10:41 AM EDT Acute pain of left shoulder from Last 3 Months Results * (ABNORMAL) CBC (01/17/2025 2:12 PM EDT) [...] Performing Organization Information Site ID: QPT Name: [facility] Address: [address] [place] [address], [address] [place], [place] [id number] Director: Yogi Morin MD Tiffany Lucio NP LAB BLOOD ORDERABLES Final Result Performing Organization Address [facility] de Phone Number [facility] * HCG, quantitative, (01/17/2025 2:12 PM EDT) HCG, TOTAL, QN <5 mIU/mL [facility] Comment: Reference Range Non or premenopausal <5 Postmenopausal <10 Values from different assay methods may vary. The use of this assay to monitor or to diagnose patients with cancer or any condition unrelated to has not been cleared or approved by the FDA or the safety professional of the assay. Blood Venous blood specimen / Unknown 01/17/2025 2:12 PM EDT 01/17/2025 2:14 PM EDT Narrative Resulting Agency Comment Performing Organization Information Site ID: QPT Name: [facility] Address: [address] [place] [address], [address] [place] [address] Director: Yogi Morin MD us Tiffany Lucio NP LAB BLOOD ORDERABLES Final Result Performing Organization Address [facility]/ZIP Co de Phone Number [facility] * US [...] BY: ELECTRONICALLY SIGNED BY: Jarett Bryant MD Tiffany Lucio NP IMG US PROCEDURES Final Re sult * POCT , urine (01/17/2025 1:19 PM EDT) Preg Test, Ur Negative Negative Urine 01/17/2025 1:19 PM EDT Tiffany Lucio NP POINT OF CARE TEST ENTER/E DIT ORDERABLES Final Result * POCT Urinalysis dipstick (01/17/2025 1:19 PM EDT) Color, UA Valera Clarity, UA Clear Glucose, UA Negative Negative [...] TEST ENTER/E DIT ORDERABLES Final Result * AK INJECTION SINGLE/BOLT SORTER TRIGGER POINT 1/2 MUSCLES (12/06/2024 3:16 PM EDT) Narrative Lamont Ornelas NP - 12/06/2024 3:16 PM EDT Lamont Ornelas NP 12/06/2024 3:29 PM Trigger Point Injection ([place] [address] [place] [address]): left lower trapezius on 12/06/2024 3:16 PM Medications: 40 mg methylPREDNISolone acetate 40 MG/ML Outcome: tolerated well, no immediate complications Site cleaned with isopropyl alcohol. Procedure, treatment alternatives, risks and benefits explained, specific risks discussed. Consent was given by the patient. Lamont Ornelas NP IN CLINIC/BEDSIDE ORDERABLES Fi nal Result * XR shoulder 2+ views left (11/29/2024 10:41 AM EDT) Anatomical Region Laterality Modality Upper Extremities, Shoulder Left Radi ographic Imaging 11/29/2024 11:2 6 AM EDT Impressions 11/29/2024 11:28 AM EDT No acute osseous findings. ELECTRONICALLY SIGNED BY: Mickey Park MD Narrative 11/29/2024 11:28 AM EDT EXAMINATION/TECHNIQUE: XR SHOULDER 2+ VIEWS LEFT HISTORY: Left shoulder pain. COMPARISON: None RESULT: No acute fracture or dislocation. Glenohumeral joint space maintained. Acromioclavicular joint space maintained. Acromiohumeral interval maintained. Soft tissues unremarkable. Visualized thorax/lungs unremarkable. Procedure Note Mickey Park MD - 11/29/2024 EXAMINATION/TECHNIQUE: XR SHOULDER 2+ VIEWS LEFT HISTORY: Left shoulder pain. COMPARISON: None RESULT: No acute fracture or dislocation. Glenohumeral joint space maintained.Acromioclavicular joint space maintained. Acromiohumeral intervalmaintained. Soft tissues unremarkable. Visualized thorax/lungsunremarkable. IMPRESSION: No acute osseous findings. ELECTRONICALLY SIGNED BY: Mickey Park MD Tiffany Lucio NP IMG XR PROCEDURES Final Re sult from Last 3 Months Insurance [employer] Care Teams Customer Care Assistant Relationship Specialty Start Date End Date Tiffany Lucio NP [address] [place] [address] Nurse Practitioner Family Medicine 08/14/24 Evon Bey PMHNP- [address] [facility] [address] [place] [address] Nurse Practitioner Behavioral Health 08/20/24
--- OUTSIDE RECORDS SUMMARY | 2025-01-29 20:58 | XMS_ITS | Encounter Summary ---
Author Organization [facility] Address [address] [facility] [place] [address] Care Team Providers Care Composite Technician Name Role Phone Rahel Childress MD Primary Care Provider [phone] Unallocated, [facility] Provider Primary Care Provi philip Rahel Childress MD Unavailable Jossie Aguiar MD Primary Care Provider [phone] Tiffany Lucio CHIEF BUSINESS OFFICER Unavailable Evon Bey [facility] Unavailable Reagan Pompa NP Unavailable [phone] Encounter Details Date Type Department Care Team (Late st Contact Info) Description 05/17/2023 Abstract [facility] [address] [facility] [address] [place] [address] Rahel Childress MD [address] [facility] [address] [place] [address] Social History Tobacco Use Types Packs/Day Years [...] [address] [place] [address] Garret Yanez, MIXER TENDER 02/04/2025 4:00 PM EDT Treatment [facility] [address] [place] [address] Bridget Pugh, MIXER TENDER 02/07/2025 3:30 PM EDT Treatment [facility] [address] [place] [address] Bridget Pugh, MIXER TENDER 02/11/2025 4:00 PM EDT Treatment [facility] [address] [place] [address] Kelli Garcia, PT 02/13/2025 4:00 PM EDT Treatment [facility] [address] [place] [address] Kelli Garcia, PT 02/14/2025 3:30 PM EDT Office Visit [facility] [address] [place] [address] Lamont Ornelas, CHIEF BUSINESS OFFICER [address] [place] [address] 06/04/2025 1:00 PM EST Telemedicine [facility] [address] [place] [address] Evon Bey, [facility]- [address] [place] [address] documented as of this encounter Visit Diagnoses Not on filedocumented in this encounter Care Teams Composite Technician Relationship Specialty Start Date End Date Rahel Childress MD PCP - General Family Medicine 02/20/23 07/31/23 Unallocated, N[facility] MD [facility] [address] [facility] [place] [address] PCP - General Family Medicine 08/01/23 07/30/24 Jossie Aguiar MD [address] [place] [address] PCP - General Family Medicine 07/31/24 12/05/24 Rahel Childress MD [address] [place], [place] [phone] Family Medicine 02/20/23 07/30/24 Tiffany Lucio NP [address] [place], [place] [phone] Nurse Practitioner Family Medicine 08/14/24 Evon Bey, [facility] [address] [facility] [address] [place] [address] Nurse Practitioner Behavioral Health 08/20/24 Reagan Pompa NP [address] [facility] [address] [place] [address] Referring Physician Gastroenterology 08/20/24 12/05/24 documented as of this encounter
--- OUTSIDE RECORDS SUMMARY | 2025-01-29 20:58 | XMS_ITS | Encounter Summary ---
Author Organization [facility] Address [address] [place] [address] Care Team Providers Care Healthcare Advisory Services Manager Name Role Phone Tiffany Lucio NP Unavailable Evon Bey [facility]- Unavailable Encounter Details Date Type Department Care Team (Late st Contact Info) Description 01/17/2025 Hamzahboo flowsheet [facility] [address] [place] [address] Tiffany Lucio NP [address] [place], [place] [phone] Social History Tobacco Use Types Packs/Day Years [...] Industry Job Start Date Job End Date [place] Not on file Not on file Not on file documented as of this encounter Plan of Treatment Upcoming Encounters Date Type Department Care Team (Late st Contact Info) Description 01/31/2025 2:30 PM EDT Treatment [facility] [address] [place] [address] Garret Yanez, METAL ROLLING MILL OPERATOR 02/04/2025 4:00 PM EDT Treatment [facility] [address] [place] [address] Bridget Pugh, METAL ROLLING MILL OPERATOR 02/07/2025 3:30 PM EDT Treatment [facility] [address] [place] [address] Bridget Pugh, METAL ROLLING MILL OPERATOR 02/11/2025 4:00 PM EDT Treatment [facility] [address] [place] [address] Kelli Garcia, PT 02/13/2025 4:00 PM EDT Treatment [facility] [address] [place] [address] Kelli Garcia, PT 02/14/2025 3:30 PM EDT Office Visit [facility] [address] [place] [address] Lamont Ornelsa, DORIAN [address] [place] [address] 06/04/2025 1:00 PM EST Telemedicine [facility] [address] [place] [address] Evon Bey, KAMINIP- [address] [facility] [address] [place] [address] documented as of this encounter Visit Diagnoses Not on filedocumented in this encounter Additional Health Concerns Assessment Noted Time PHQ-9 Depression Total Score: 15 025 11:00 AM EDT documented as of this encounter Care Teams Healthcare Advisory Services Manager Relationship Specialty Start Date End Date Tiffany Lucio, DORIAN [address] [place], [place] [phone] Nurse Practitioner Family Medicine 08/14/24 Evon eBy, KAMINI- [address] [facility] [address] [place] [address] Nurse Practitioner Behavioral Health 08/20/24 documented as of this encounter
--- OUTSIDE RECORDS SUMMARY | 2025-01-29 20:58 | XMS_ITS | Encounter Summary ---
Author Organization [facility] Address [address] [facility] [place] [address] Care Team Providers Care Glove Boarder Name Role Phone Rahel Childress MD Primary Care Provider [phone] Unallocated, Noms Provider Primary Care Provi philip Rahel Childress MD Unavailable Jossie Aguiar MD Primary Care Provider Tiffany Lucio TELESALES SPECIALIST Unavailable [phone] Evon Bey [facility] Unavailable Reagan Pompa NP Unavailable [phone] Encounter Details Date Type Department Care Team (Late st Contact Info) Description 03/04/2023 Abstract [facility] [address] [facility] [address] [place] [address] Rahel Childress MD [address] [facility] 110 [place] [address] Social History Tobacco Use Types Packs/Day Years [...] [address] [place] [address] Garret Yanez, WIREWORKER 02/04/2025 4:00 PM EDT Treatment [facility] [address] [place] [address] Bridget Pugh, WIREWORKER 02/07/2025 3:30 PM EDT Treatment [facility] [address] [place] [address] Bridget Pugh, WIREWORKER 02/11/2025 4:00 PM EDT Treatment [facility] [address] [place] [address] Kelli Garcia, PT 02/13/2025 4:00 PM EDT Treatment [facility] [address] [place] [address] Kelli Garcia, PT 02/14/2025 3:30 PM EDT Office Visit [facility] [address] [place] [address] Lamont Ornelas, TELESALES SPECIALIST [address] [place] [address] 06/04/2025 1:00 PM EST Telemedicine [facility] [facility] [address] [place] [address] Evon Bey, [facility]- [address] [place] [address] documented as of this encounter Visit Diagnoses Not on filedocumented in this encounter Care Teams Glove Boarder Relationship Specialty Start Date End Date Rahel Childress MD PCP - General Family Medicine 02/20/23 07/31/23 Unallocated, Noms MD Kvng [address] [facility] [place] [address] PCP - General Family Medicine 08/01/23 07/30/24 Jossie Aguiar MD [address] [place] [address] PCP - General Family Medicine 07/31/24 12/05/24 Rahel Childress MD [address] [place], [place] [id number] Family Medicine 02/20/23 07/30/24 Tiffany Lucio NP [address] [place], [place] [phone] Nurse Practitioner Family Medicine 08/14/24 Evon Bey, [facility] [address] [facility] 160 [place] [address] Nurse Practitioner Behavioral Health 08/20/24 Reagan Pompa NP [address] [facility] [address] [place] [address] Referring Physician Gastroenterology 08/20/24 12/05/24 documented as of this encounter
--- OUTSIDE RECORDS SUMMARY | 2025-01-29 20:58 | XMS_ITS | Encounter Summary ---
Author Organization [facility] Address [address] [facility] [place] [address] Care Team Providers Care Art Handler Name Role Phone Rahel Childress MD Primary Care Provider [phone] Unallocated, Noms Provider Primary Care Provi philip Rahel Childress MD Unavailable Jossie Aguiar MD Primary Care Provider Tiffany Lucio REVERSE LOGISTICS ANALYST Unavailable Evon Bey [facility] Unavailable Reagan Pompa NP Unavailable [phone] Encounter Details Date Type Department Care Team (Late st Contact Info) Description 05/17/2023 Abstract [facility] [address] [facility] 110 [place] [address] Rahel Childress MD [address] [facility] 110 [place] [address] Social History Tobacco Use Types Packs/Day Years [...] [address] [place] [address] Garret Yanez, ARTIFACTS CONSERVATOR 02/04/2025 4:00 PM EDT Treatment [facility] [address] [place] [address] Bridget Pugh, ARTIFACTS CONSERVATOR 02/07/2025 3:30 PM EDT Treatment [facility] [address] [place] [address] Bridget Pugh, ARTIFACTS CONSERVATOR 02/11/2025 4:00 PM EDT Treatment [facility] [address] [place] [address] Kelli Garcia, PT 02/13/2025 4:00 PM EDT Treatment [facility] [address] [place] [address] Kelli Garcia, PT 02/14/2025 3:30 PM EDT Office Visit [facility] [address] [place] [address] Lamont Ornelas, REVERSE LOGISTICS ANALYST [address] [place] [address] 06/04/2025 1:00 PM EST Telemedicine [facility] [facility] [address] [place] [address] Evon Bey, [facility]- [address] [place] [address] documented as of this encounter Visit Diagnoses Not on filedocumented in this encounter Care Teams Art Handler Relationship Specialty Start Date End Date Rahel Childress MD PCP - General Family Medicine 02/20/23 07/31/23 Unallocated, Noms MD Kvng [address] [facility] [place] [address] PCP - General Family Medicine 08/01/23 07/30/24 Jossie Aguiar MD [address] [place] [address] PCP - General Family Medicine 07/31/24 12/05/24 Rahel Childress MD [address] [place], [place] [phone] Family Medicine 02/20/23 07/30/24 Tiffany Lucio NP [address] [place], [place] [phone] Nurse Practitioner Family Medicine 08/14/24 Evon Bey, [facility] [address] [facility] 160 [place] [address] Nurse Practitioner Behavioral Health 08/20/24 Reagan Pompa NP [address] [facility] 160 [place] [address] Referring Physician Gastroenterology 08/20/24 12/05/24 documented as of this encounter
--- OUTSIDE RECORDS SUMMARY | 2025-01-29 20:58 | XMS_ITS | Clinical Summary ---
Author Organization [employer] Address [id number] [address] [place] [address] Care Team Providers Care Assistant Coach Name Role Phone No Pcp, No Pcp Primary Care Provider Unavailabl e Allergies Active Allergy Reactions Criticality Noted Date Comments Nickel 05/21/2024 Medications magnesium oxide (MAGOX) 400 mg tablet Take 1 tablet (400 mg total) by mouth in the morning. 7 tablet 3 Active pantoprazole (PROTONIX) 40 mg EC tablet 3 Active budesonide EC (ENTOCORT EC) 3 mg 24 hr capsule Take 2 capsules (6 mg total) by mouth every morning. Active famotidine (PEPCID) 20 mg tablet Take 1 tablet (20 mg total) by mouth in the morning and 1 tablet (20 mg total) before bedtime. 20 tablet 4 Active ondansetron ODT (ZOFRAN ODT) 4 mg disintegrating tablet Dissolve 1 tablet (4 mg total) on tongue every 8 (eight) hours as needed for nausea for up to 10 doses. 10 tablet 4 Active amitriptyline (ELAVIL) 25 mg tabletIndications:C hronic daily headache,Migraine with aura and without status migrainosus, not intractable Take 1 tablet (25 mg total) by mouth nightly. 30 tablet 3 5 Active rizatriptan (MAXALT) 10 mg tabletIndications:M igraine with aura and without status migrainosus, not intractable Take 1 tablet just after onset of migraine. May repeat the dose after 2 hours if migraine persists. Max of 2 doses per 24 hours. 12 tablet 2 Active Active Problems No known active problems Encounters Date Type Department Care Team Description 01/10/2025 Telephone [facility] Department of [facility] [address] [facility] [address] [place] [address] Maria Eugenia Milian OUT OF NETWORK 12/24/2024 11:00 AM EDT Office Visit [facility], A Department of [facility] [address] [facility] [address] [place] [address] Efrain Hong PA-C Chronic daily headache (Primary Dx); Migraine with aura and without status migrainosus, not intractable; Morning headache; Dizziness after extension of neck 12/23/2024 Travel from Last 3 Months Social History Tobacco Use Types Packs/Day Years Used Date Smoking Tobacco: Never Smokeless Tobacco: Never Tobacco Cessation:Counseling Given: Not Answered Alcohol Use Standard Drinks/Week Comments Not Currently 0 (1 standard drink = 0.6 oz pur e alcohol) Childcare Answer Date Recorded Childcare Unknown 10/30/2018 Employment Answer Date Recorded Employment Unknown 10/30/2018 Hunger Screening Answer Date Recorded Within the past 12 months we worried whether our food would run out before we got money to buy more. Never True 05/21/2024 Within the past 12 months th e food we bought just didn't last and we didn't have money to get more. Never True 05/21/2024 Comments No Sex and Gender Information Value Date Recorded Sex Assigned at Female 12/23/2024 2:34 PM EDT Legal Sex Female 12:06 PM EDT Gender Identity Female 12/23/2024 2:34 PM EDT Sexual Orientation Not on file Last Filed Vital Signs Vital Sign Reading Time Taken Comments Blood Pressure 128/93 12/24/2024 10:56 AM EDT Pulse 75 12/24/2024 10:56 AM EDT Temperature 36.7 C (98 F) 05/21/2024 6:30 PM EST Respiratory Rate 16 05/21/2024 8:53 PM EST Oxygen Saturation 100% 05/21/2024 8:53 PM EST Inhaled Oxygen Concentration - - Weight 63.4 kg (139 lb 11.2 oz) 025 10:56 AM EDT Height 149.9 cm (4' 11 ) 12/24/2024 10: 56 AM EDT Body Mass Index 28.22 12/24/2024 10:56 AM EDT Plan of Treatment Upcoming Encounters Date Type Department Care Team (Late st Contact Info) Description 02/26/2025 3:00 PM EDT Office Visit [facility] [place] [address] [place] [address] Efrain Hong, PA-C [address], [facility] [address] [place] [address] Health Maintenance Due Date Last Done Comments Depression Screening 2009 Adult BMI Follow Up Plan 2015 Pap Smear 2018 Influenza Vaccine 01/21/2025 Adult BMI Screening 12/24/2025 12/24/2024 Tobacco Screening 12/24/2025 12/24/2024 DTaP,Tdap and Td Vaccines (8 - Td or Tdap) 04/23/2028 04/23/2018, 04/23/2018, 11/05/2009, Additional history exists Medical Devices Not on file Insurance rSmart Care Teams Assistant Coach Relationship Specialty Start Date End Date No Pcp, [place] [id number] PCP - General Family Medicine 01/16/23
--- OUTSIDE RECORDS SUMMARY | 2025-01-29 20:58 | XMS_ITS | Encounter Summary ---
Author Organization [facility] Address [address] [facility] [place] [address] Care Team Providers Care Digital Controls Technical Officer Name Role Phone LucioQuirino jeffersonantha Kale AOC AIRSPACE CONTROL OFFICER Unavailable [phone] Evon Bey PMHNP- Unavailable Reason for Visit * Reason Onset Date Comments Bronchitiis 01/22/2025 Still ill 01/25/2025 Encounter Details Date Type Department Care Team (Late st Contact Info) Description 01/22/2025 Telephone [facility] [address] [facility] [address] [place] [address] Garret Yanez, MORRIS Bronchitiis; Still ill Social History Tobacco Use Types Packs/Day Years [...] Industry Job Start Date Job End Date [place] Not on file Not on file Not on file documented as of this encounter Miscellaneous Notes * Telephone Encounter - Anum Moseley - 01/25/2025 1:55 PM EDT Called back noting not feeling any better; she was put on a steroid but is allergic. She said she should be better and ready to go by 01/29. * Telephone Encounter - Anum Moseley - 01/22/2025 1:28 PM EDT She called stating her whole house has come down w/ bronchitiis; she cx today. She noted she shouldbe all better by 01/25; she'll contact if still not feeling good. documented in this encounter Plan of Treatment Upcoming Encounters Date Type Department Care Team (Late st Contact Info) Description 01/31/2025 2:30 PM EDT Treatment [facility] [address] [facility] [address] [place] [address] Garret Yanez, ASSEMBLY LEAD PERSON 02/04/2025 4:00 PM EDT Treatment [facility] [address] [place] [address] Bridget Pugh, ASSEMBLY LEAD PERSON 02/07/2025 3:30 PM EDT Treatment [facility] [address] [place] [address] Bridget Pugh, ASSEMBLY LEAD PERSON 02/11/2025 4:00 PM EDT Treatment [facility] [address] [place] [address] Kelli Garcia, PT 02/13/2025 4:00 PM EDT Treatment [facility] [address] [facility] [address] [place] [address] Kelli Garcia, PT 02/14/2025 3:30 PM EDT [facility] [address] [facility] [address] Lamont Ornelas, DORIAN [address] [place] [address] 06/04/2025 1:00 PM EST [facility]medicine [facility] [address] [facility] [address] [place] [address] Evon Bey [facility]- [address] [facility] [address] [place] [address] documented as of this encounter Visit Diagnoses Not on filedocumented in this encounter Additional Health Concerns Assessment Noted Time PHQ-9 Depression Total Score: 15 025 11:00 AM EDT documented as of this encounter Care Teams Digital Controls Technical Officer Relationship Specialty Start Date End Date Tiffany Lucio NP [address] [facility] [place] [address] Nurse Practitioner Family Medicine 08/14/24 Evon Bey [facility] [address] [facility] [address] [place] [address] Nurse Practitioner Behavioral Health 08/20/24 documented as of this encounter
--- OUTSIDE RECORDS SUMMARY | 2025-01-29 20:58 | XMS_ITS | Encounter Summary ---
Author Organization [facility] Address [address] [place] [address] Care Team Providers Care Qa Architect Name Role Phone Tiffany Lucio NP Unavailable [phone] Evon Bey PMHNP- Unavailable Encounter Details Date Type Department Care Team (Late st Contact Info) Description 01/17/2025 Results Follow-Up [facility] [address] [place] [address] MA pelvis transvaginal, POCT , urine, POCT Urinalysis dipstick, Additional followed-up results: 2 Social History Tobacco Use Types Packs/Day Years [...] Industry Job Start Date Job End Date [place] Not on file Not on file Not on file documented as of this encounter Miscellaneous Notes * Telephone Encounter - Bernie Pang MA - 01/18/2025 10:14 AM EDT Lmom, please relay msg about labs. * Telephone Encounter - Bernie Pang MA - 01/18/2025 10:14 AM EDT ----- Message from Tiffany Lucio sent at 01/18/2025 9:07 AM EDT ----- Please let patient know labs are WNL, I believe her bleeding is due to irregular menses from control. I encourage her to take her control at the same time daily and not miss a dose to help regulate her periods. ----- Message ----- From: Georgina Lane MA Sent: 01/17/2025 1:19 PM EDT To: Tiffany Lucio NP * Telephone Encounter - Georgina Lane MA - 01/17/2025 4:16 PM EDT I called and notified pt * Telephone Encounter - Georgina Lane MA - 01/17/2025 4:16 PM EDT ----- Message from Tiffany Lucio sent at 01/17/2025 3:36 PM EDT ----- Please let patient know US looks good, has benign cyst on ovary. Will notify her of labs once they come back. ----- Message ----- From: Interface, Incoming Img [place] Background Sent: 01/17/2025 2:57 PM EDT To: Tiffany Lucio NP documented in this encounter Plan of Treatment Upcoming Encounters Date Type Department Care Team (Late st Contact Info) Description 01/31/2025 2:30 PM EDT Treatment [facility] [address] [facility] [address] [place] [address] Garret Yanez, CABLE PULLER 02/04/2025 4:00 PM EDT Treatment [facility] [address] [place] [address] Bridget Pugh, CABLE PULLER 02/07/2025 3:30 PM EDT Treatment [facility] [address] [place] [address] Bridget Pugh, CABLE PULLER 02/11/2025 4:00 PM EDT Treatment [facility] [address] [place] [address] Kelli Garcia, PT 02/13/2025 4:00 PM EDT Treatment [facility] [address] [facility] [address] [place] [address] Kelli Garcia, PT 02/14/2025 3:30 PM EDT Office Visit [facility] [address] [place] [address] Lamont Ornelas, MANAGER LAW [address] [place], [place] [phone] 06/04/2025 1:00 PM EST Telemedicine [facility] [place] [facility] [address] [facility] [address] [place] [address] Evon Bey, [facility]- [address] [facility] [address] [place] [address] documented as of this encounter Visit Diagnoses Not on filedocumented in this encounter Additional Health Concerns Assessment Noted Time PHQ-9 Depression Total Score: 15 025 11:00 AM EDT documented as of this encounter Care Teams Qa Architect Relationship Specialty Start Date End Date Tiffany Lucio NP [address] [facility] [place] [address] Nurse Practitioner Family Medicine 08/14/24 Evon Bey, [facility]- [address] [facility] [address] [place] [address] Nurse Practitioner Behavioral Health 08/20/24 documented as of this encounter
--- OUTSIDE RECORDS SUMMARY | 2025-01-29 21:01 | XMS_ITS | CCD ---
Author Organization [facility] Care Team Providers Care Director Of Cardiopulmonary Services Name Role Phone Tracy Locke Unavailable KANA, DR DENISE Primary Care Unavailable ASCENCION ., DR WILSON Admitting Unavailable ASCENCION ., DR WILSON Attending Unavailable ALLYSON ., JESSE Consulting Unavailable ASCENCION ., DR WILSON Admitting Unavailable HAY ., DR WILSON Consulting Unavailable ASCENCION ., DR WILSON Attending Unavailable KANA, DR DENISE Primary Care Unavailable Isabella Spencer Unavailable MD Camelia Roger Primary Care Provider DO Rabia Murrieta Emergency Provider [phone] Camelia Roger Primary Care Unavailable Rabia Murrieta Admitting Unavailable Rabia Murrieta Attending Unavailable Antonio Pompa Unavailable MD Camelia Roger Primary Care Provider DO Rabia Murrieta Emergency Provider MD Kenrick Gill Attending Provider СЕРГЕЙ Pompa Attending Provider Kenrick Gill Unavailable NO FAMILY, PHYSICIAN Primary Care Provider Unava ilable DO Heriberto Shin Admit Provider [phone] DO Heriberto Shin Attending Provider [phone] MD Abel Downey Other Provider [phone] NO FAMILY, PHYSICIAN Primary Care Provider Unava ilable СЕРГЕЙ Ley Emergency Provider DO Heriberto Shin Admit Provider MD Abel Downey Other Provider MD Trung Dalal Other Provider MD Lg Kurtz Other Provider MD Fiona Rowley Other Provider MD Mame Conde Other Provider СЕРГЕЙ Pompa Other Provider MD Kenrick Gill Other Provider MD Sixto Reina Other Provider MD Mann Rowley Attending Provider MD Kenrick Gill Attending Provider Adair CUADRA Attending Unavailable NO FAMILY, PHYSICIAN Primary Care Provider Unava ilable DO Rabia Murrieta Emergency Provider [phone] MD Kenrick Gill Attending Provider [phone] NO PCP, NO PCP Primary Care Unavailable NGUYEN, RABIA N Attending Unavailable NGUYEN, RABIA N Attending Unavailable NGUYEN, RABIA N Referring Unavailable NO PCP, NO PCP Primary Care Unavailable NO PCP, NO PCP Primary Care Unavailable SANAZ ALCANTARA Attending Unavailable NO PCP, NO PCP Primary Care Unavailable FLORENCE RODRÍGUEZ Attending Unavailable NO FAMILY, PHYSICIAN Primary Care Provider Unava ilable Kenrick Gill MD Attending Provider [phone] Renny Estrada MD Emergency Provider [phone] NO FAMILY, PHYSICIAN Primary Care Provider Unava ilable Antonio Pompa APRN Attending Provider Unallocated , Noms Provider Primary Care Provi philip Camelia Roger MD Unavailable Cosme ABARCA, Jossie Henao Primary Care Provider Khadijah ALARCON, Tiffany Henley Unavailable [facility], Kamlesh Unavailable Antonio Pompa MD Unavailable [phone] NO FAMILY, PHYSICIAN Primary Care Provider Unava ilable Renny Estrada MD Emergency Provider Antonio Pompa APRN Attending Provider Khadijah ALARCON-C, Tiffany Primary Care Provider Gibson ALEJANDRA, Johnnie W Emergency Provider Bailey Cadena MD Admit Provider Bailey Cadena MD Attending Provider [phone] Trung Dalal MD Other Provider [phone] Heriberto Shin DO Attending Provider Asaad, Imad Admitting Unavailable Asaad, Imad Attending Unavailable NO FAMILY, PHYSICIAN Primary Care Unavailable Tiffany Robertson Primary Care Unavailable Bailey Cadena Admitting Unavailable Heriberto Shin Attending Unavailable Trung Dalal Consulting Unavailable Renny Estrada Jr Admitting Unavailable Renny Estrada Jr Attending Unavailable NO FAMILY, PHYSICIAN Primary Care Unavailable Rabia Murrieta Admitting Unavailable Rabia Murrieta Attending Unavailable NO FAMILY, PHYSICIAN Primary Care Unavailable NO FAMILY, PHYSICIAN Primary Care Unavailable Antonio Pompa Admitting Unavailable Antonio Pompa Attending Unavailable Antonio Pompa MD Unavailable Jossie Aguiar MD Primary Care Provider No Pcp, No Pcp Primary Care Provider UnavailEFRAIN Rodriguez Attending Unavailable TIFFANY ROBERTSON Referring Unavailable NO PCP, NO PCP Primary Care Unavailable Khadijah FLORESC, Tiffany Primary Care Provider [phone] Antonio Pompa APRN Attending Provider RADHA BESS Attending Unavailable TIFFANY ROBERTSON Attending Unavailable CHRISTEL ONTIVEROS Attending Unavailable ANTONIO POMPA Referring Unavailable KAMLESH BEY Attending Unavailable CATALINO REINA Referring Unavailable TIFFANY ROBERTSON Attending Unavailable KAMLESH BEY Attending Unavailable KAMLESH BEY Attending Unavailable TIFFANY ROBERTSON Attending Unavailable TIFFANY ROBERTSON Referring Unavailable HARJEET PELAEZ Attending Unavailable HARJEET PELAEZ Attending Unavailable KELLI GARCIA Attending Unavailable HARJEET PELAEZ Referring Unavailable TIFFANY ROBERTSON Attending Unavailable TIFFANY ROBERTSON Referring Unavailable BERENICE NUNEZ Attending Unavailable HARJEET PELAEZ Referring Unavailable KAMLESH BEY Attending Unavailable Allergies Allergy Classification Reported Allergen(s) Allergy Type Date of Onset Reaction(s) Facility (15 sources) nickel; Translations: [NICKEL] Drug Allergy 03-25-2023 [facility] (1 source) Leucine Drug Allergy [facility] Repository (2 sources) nickel Drug Allergy 03-25-2023 [facility] Repository (20 sources) nickel sulfate Drug Allergy 05-21-2024 [facility] re Medications Current Medications Medication Drug Class(es) Dates Sig (Normalized) Sig (Original) [id number] 200 actuat albuterol 0.09 mg/actuat metered dose inhaler (20 sources) beta2-Adrenergic Agonist Start: 07-31-2024 End: 08-30-2024 take 2 puff(s) by inhalation every four hours for wheezing albuterol HFA 90 mcg/act inhaler Indications: History of asthma Inhale 2 puffs every 4 (four) hours if needed for shortness of breath or wheezing 18 g 07/31/2024 Active Albuterol Active Aluminum Hydroxide / magnesium carbonate (6 sources) Start: 06-18-2024 take 1 tablet by miki th every four hours as needed for gastroesophageal reflux disease gaviscon Active 1 TAB PO Every 4 hours as needed for gerd June 18, 2024 1:00am Complies with drug therapy Start: 06-18-2024 take 1 tablet by miki th every four hours as needed for gastroesophageal reflux disease gaviscon Active 1 TAB PO Every 4 hours as needed for gerd June 18, 2024 1:00am Start: 06-18-2024 gaviscon Activ e PO June 18, 2024 12:00am amitriptyline hydrochloride 25 mg oral tablet (14 sources) Tricyclic Antidepressant Start: 12-24-2024 take 1 tablet by mouth at bedtime amitriptyline (Elavil) 25 MG tablet Take 25 mg by mouth at bedtime 12/24/2024 Active budesonide 3 mg delayed release oral capsule (5 sources) Corticosteroid Start: 05-25-2023 Budesonide 3 MG 3 tabs daily for 60 days, 2 tabs daily for 14 days, 1 tab daily for 14 days Orally Once a day for 90 days May, Active take 2 capsules by m outh once daily in the morning budesonide EC (ENTOCORT EC) 3 mg 24 hr capsule Take 2 capsules (6 mg total) by mouth every morning. Active citric acid 68.6 MG/ML / magnesium oxide 20 MG/ML / picosulfate sodium 0.0571 MG/ML Oral Solution [Clenpiq] (1 source) Start: 04-08-2023 take 1 dose by mouth twice daily in the evening Clenpiq 10-3.5-12 MG-GM -GM/175ML 175 mL the first dose at 3:00 pm and 175 ml the second dose at 9:00 pm Orally twice a day for 1 days PLEASE CHECK ALLERGIES Mar, Active cyclobenzaprine hydrochloride 10 mg oral tablet (20 sources) Muscle Relaxant Start: 08-28-2024 End: 09-07-2024 cyclobenzaprine (Flexeril) 10 MG tablet Indications: Chronic midline low back pain without sciatica Take 1 tablet (10 mg) by mouth 3 (three) times a day as needed for muscle spasms for up to 10 days Recommend cutting in half. 30 tablet 08/28/2024 Active Start: 06-13-2024 End: 08-28-2024 take 1 tablet by mouth every eight hours as needed for muscle spasms Cyclobenzaprine 10 mg tablet Discontinued 10 MG PO Every 8 hours as needed for muscle spasm June 13, 2024 1:00am August 26, 2024 11:53am Start: 05-05-2022 take 1 tablet by miki three times daily as needed for muscle spasms Cyclobenzaprine HCl 10 MG 1 tab(s) Orally 3 times a day prn muscle spasms Apr, Not-Taking dicyclomine hydrochloride 20 mg oral tablet (20 sources) Anticholinergic Start: 06-18-2024 End: 07-23-2024 take 1 tablet by mouth three times daily as needed Dicyclomine 20 mg tablet Active 20 MG PO Three times daily as needed for abdominal discomfort July 23, 2024 11:26am Complies with drug therapy Start: 06-13-2024 End: 07-31-2024 take 2 capsules by mouth in the morning, then take 2 capsules by mouth in the evening, then take 2 capsules by mouth at bedtime dicyclomine (Bentyl) 10 MG capsule Take 20 mg by mouth in the morning and 20 mg in the evening and 20 mg before bedtime. 06/13/2024 07/31/2024 Discontinued (Dose adjustment) Start: 06-13-2024 End: 07-23-2024 take 1 capsule by mouth three times daily as needed Dicyclomine 10 mg capsule Discontinued 10 MG PO Three times daily as needed for abdominal discomfort June 13, 2024 1:00am July 23, 2024 11:26am Start: 08-11-2023 End: 03-07-2024 take 1 tablet by mouth twice daily Dicyclomine 20 mg tablet Discontinued 20 MG PO Twice daily 180 90 August 11, 2023 12:00am March 07, 2024 12:34pm docusate sodium 100 mg oral capsule (20 sources) Start: 06-13-2024 End: 07-23-2024 take 1 capsule by mouth twice daily as needed for constipation Docusate Sodium (Colace) 100 mg capsule Active 100 MG PO Twice daily as needed for constipation July 23, 2024 11:26am Complies with drug therapy Norgestimate-Eth inyl Estradiol (20 sources) Progestin, Estrogen Start: 01-07-2025 take 1 tablet by mouth once daily Norgestimate-Ethin yl Estradiol (Tri-Sprintec (28)) 0.18/0.215/0.25 mg-0.035mg (28) tablet Active 1 TAB PO Daily January 07, 2025 12:00am Complies with drug therapy Start: 08-28-2024 End: 08-28-2025 take 1 tablet by mouth once daily norgestimate-ethinyl estradiol (Tri-Sprintec) 0.18/0.215/0.25 MG-35 MCG tablet Indications: Encounter for initial prescription of contraceptive pills Take 1 tablet by mouth Daily 28 tablet 12 08/28/2024 08/28/2025 Active Famotidine (18 sources) Histamine-2 Receptor Antagonist Start: 06-18-2024 take 1 tablet by mouth once daily as needed for gastroesophageal reflux disease pepcid Active 1 TAB PO Daily as needed for GERD June 18, 2024 1:00am Complies with drug therapy Start: 06-18-2024 take 1 tablet by miki th once daily as needed for gastroesophageal reflux disease pepcid Active 1 TAB PO Daily as needed for GERD June 18, 2024 1:00am Start: 06-18-2024 pepcid Active PO June 18, 2024 12:00am Start: 05-21-2024 End: 08-28-2024 take 1 tablet by mouth in the morning, then take 1 tablet by mouth at bedtime famotidine (PEPCID) 20 mg tablet Take 1 tablet (20 mg total) by mouth in the morning and 1 tablet (20 mg total) before bedtime. 20 tablet 05/21/2024 Active hydrocortisone 25 mg/ml topical cream (20 sources) Corticosteroid Start: 06-13-2024 hydrocortisone 2.5 % cream Daily as needed for irritation or rash 06/13/2024 Active Start: 06-13-2024 Hydrocortisone (Anusol-Hc) 2.5 % cream with perineal applicator Active 1 APPLIC ID 2-4 TIMES PER DAY as needed for hemorrhoids June 13, 2024 1:00am Complies with drug therapy Magnesium (5 sources) take 1 capsule by mouth once daily Magnesium 300 MG 1 capsule with a meal Orally Once a day Active magnesium oxide 400 mg oral tablet (2 sources) Start: 01-02-2023 take 1 tablet by mouth in the morning magnesium oxide (MAGOX) 400 mg tablet Take 1 tablet (400 mg total) by mouth in the morning. 7 tablet 01/02/2023 Active omeprazole 40 mg delayed release oral capsule (20 sources) Proton Pump Inhibitor Start: 11-13-2024 take 1 capsule by mouth twice daily Omeprazole 40 mg capsule,delayed release(DR/EC) Active 40 MG PO Twice daily 60 November 13, 2024 12:00am Complies with drug therapy Start: 06-18-2024 End: 08-28-2024 Omeprazole 40 mg capsule,del ayed release(DR/EC) Discontinued 40 MG PO Twice daily 60 June 18, 2024 1:00am August 27, 2024 1:24pm Take 1 capsule orally 30 minutes before morning meal and 30 minutes before evening meal. Start: 03-25-2023 End: 05-30-2023 take 1 capsule by mouth once daily Omeprazole 20 mg capsule,delayed release(DR/EC) Discontinued 20 MG PO Daily May 17, 2023 7:55am May 30, 2023 7:00pm swallow whole; do not crush, chew, dissolve, or cut/break ondansetron 4 mg disintegrating oral tablet (20 sources) Serotonin-3 Receptor Antagonist Start: 06-08-2023 take 1 tablet by mouth every twenty-four hours Ondansetron HCl 4 MG 1 tablet Orally Once a day for 30 days May, Active Start: 05-29-2023 End: 01-07-2025 take 1 tablet by mouth every eight hours as needed for nausea and nausea and nausea ondansetron ODT (Zofran-ODT) 4 MG disintegrating tablet Indications: Nausea Take 1 tablet (4 mg) by mouth every 8 (eight) hours if needed for nausea 20 tablet 11/12/2024 Active Start: 03-25-2023 End: 05-17-2023 take 1 tablet by mouth every eight hours as needed for nausea and vomiting Ondansetron 4 mg tablet,disintegrating Discontinued 4 MG PO Q8H as needed for nausea and vomiting March 25, 2023 12:00am May 17, 2023 7:55am Zofran Active rizatriptan 10 mg oral tablet (14 sources) Serotonin-1b and Serotonin-1d Receptor Agonist Start: 12-24-2024 rizatriptan (Maxalt) 10 MG tablet Take 1 tablet just after onset of migraine. May repeat the dose after 2 hours if migraine persists. Max of 2 doses per 24 hours. 12/24/2024 Active sertraline 50 mg oral tablet (20 sources) Serotonin Reuptake Inhibitor Start: 01-23-2025 End: 02-22-2025 take 1 tablet by mouth once daily sertraline (Zoloft) 50 MG tablet Indications: MONICA (generalized anxiety disorder) , Severe episode of recurrent major depressive disorder, without psychotic features (HCC) , PTSD (post-traumatic stress disorder) , Panic disorder Take 1 tablet (50 mg) by mouth Daily 01/23/2025 02/22/2025 Active Start: 01-07-2025 take 2 tablets by mo uth once daily Sertraline 25 mg tablet Active 50 MG PO Daily January 07, 2025 3:52pm Complies with drug therapy Start: 09-24-2024 End: 09-03-2025 take 1 tablet by mouth once daily sertraline (Zoloft) 100 MG tablet Indications: MONICA (generalized anxiety disorder) , Severe episode of recurrent major depressive disorder, without psychotic features (HCC) , PTSD (post-traumatic stress disorder) , Panic disorder Take 1 tablet (100 mg) by mouth Daily 30 tablet 3 10/29/2024 01/23/2025 Discontinued Start: 08-20-2024 End: 01-07-2025 take 1 tablet by mouth once daily Sertraline 25 mg tablet Discontinued 25 MG PO Daily August 26, 2024 12:00am January 07, 2025 3:52pm Completed/Discontinued Medications Medication Drug Class(es) Dates Sig (Normalized) Sig (Original) 8 hr acetaminophen 650 mg extended release oral tablet (10 sources) Start: 07-29-2023 End: 03-07-2024 take 1 tablet by mouth every twelve hours as needed for pain Acetaminophen (8 Hour Pain Reliever) 650 mg tablet extended release Discontinued 650 MG PO Every 12 hours as needed for pain July 29, 2023 1:00am March 07, 2024 12:34pm clenpiq 10-3.5-12 mg-gm -gm/175ml solution (3 sources) [...] 1 days PLEASE CHECK ALLERGIES Mar, Active 1 ml methylPREDNISolone acetate 40 mg/ml injection (5 sources) Corticosteroid Start: 12-06-2024 End: 12-06-2024 methylPREDNISolone acetate (DEPO-Medrol) injection 40 mg Start: 12-06-2024 End: 12-06-2024 40 mg, Intra-articular, Once PRN Procedure, Starting on Sabrina 7/17/25 at 1516, For 1 dose Start: 05-22-2022 methylPREDNISo lone 4 MG as directed Orally Once a day for 6 days Apr, Active pantoprazole 40 mg delayed release oral tablet (20 sources) Proton Pump Inhibitor Start: 05-30-2023 End: 08-31-2023 take 1 tablet by mouth once daily Pantoprazole 40 mg tablet,delayed release (DR/EC) Discontinued 40 MG PO Daily 90 90 August 11, 2023 10:12am August 31, 2023 8:17am Start: 03-19-2023 End: 11-13-2024 take 1 tablet by mouth twice daily Pantoprazole (Protonix) 40 mg tablet,delayed release (DR/EC) Discontinued 40 MG PO Twice daily 120 August 27, 2024 12:00am November 13, 2024 8:18am Toradol 30 mg/ml (7 sources) Start: 05-05-2022 Toradol 30 mg/ ml Apr, 30 mg Problems Active Problems Problem Classification Problem Date Documented Da te Episodic/Chronic Abdominal pain (20 sources) Epigastric pain; Translations: [Epigastric pain] Onset: 4 03-25-2023 Episodic Administrative/social admission (2 sources) First encounter by subject; Translations: [Persons encountering health services in other specified circumstances] 07-31-2024 Episodic Anxiety disorders (20 sources) Generalized anxiety disorder; Translations: [Generalized anxiety disorder] Onset: 5 08-20-2024 Chronic Asthma (7 sources) Exacerbation of asthma; Translations: [Unspecified asthma with (acute) exacerbation] Chronic Conditions associated with dizziness or vertigo (8 sources) Dizziness and giddiness; Translations: [Dizziness] Onset: 4 08-28-2024 Episodic Contraceptive and procreative management (2 sources) Patient encounter status; Translations: [Encounter for initial prescription of contraceptive pills] 08-28-2024 Episodic Esophageal disorders (4 sources) Luong's esophagus without dysplasia; Translations: [Gastro-esophageal reflux disease with esophagitis] Chronic Headache; including migraine (3 sources) Migraine with aura; Translations: [Migraine with aura, not intractable, without status migrainosus] Onset: 5 12-24-2024 Chronic Headache; including migraine (8 sources) Headache disorder; Translations: [Other headache syndrome] 08-28-2024 Episodic Headache; including migraine (1 source) Headache; including migraine; Translations: [Headache, unspecified] Onset: Malaise and fatigue (2 sources) Fatigue; Translations: [Other fatigue] 07-31-2024 Episodic Menstrual disorders (6 sources) Dysmenorrhea; Translations: [Dysmenorrhea, unspecified] 08-30-2024 Chronic Mood disorders (20 sources) Severe recurrent major depression without psychotic features; Translations: [Major depressive disorder, recurrent severe without psychotic features] Onset: 5 08-20-2024 Chronic Other disorders of stomach and duodenum (9 sources) Gastroparesis syndrome; Translations: [Gastroparesis] 03-07-2024 Episodic Other gastrointestinal disorders (14 sources) Irritable bowel syndrome with diarrhea; Translations: [Irritable bowel syndrome with diarrhea] Onset: 5 06-18-2024 Chronic Other gastrointestinal disorders (9 sources) Irritable bowel syndrome with diarrhea; Translations: [Irritable bowel syndrome] Onset: 5 06-18-2024 Chronic Other gastrointestinal disorders (20 sources) Irritable bowel syndrome; Translations: [Mixed irritable bowel syndrome] Onset: 5 08-20-2024 Chronic Other gastrointestinal disorders (3 sources) Constipation, unspecified; Translations: [Constipation, unspecified] Episodic Other gastrointestinal disorders (2 sources) Change in bowel habit; Translations: [Other symptoms involving digestive system] Episodic Other gastrointestinal disorders (7 sources) History of esophagitis; Translations: [Personal history of other diseases of the digestive system] 06-13-2024 Episodic Other liver diseases (3 sources) Lesion of liver; Translations: [Liver disease, unspecified] Chronic Other liver diseases (4 sources) Liver disease, unspecified; Translations: [Liver lesion] Chronic Other liver diseases (20 sources) Steatosis of liver; Translations: [Fatty (change of) liver, not elsewhere classified] Onset: 5 07-31-2024 Chronic Other nervous system disorders (6 sources) Suprascapular nerve compression; Translations: [Other specified mononeuropathies of left upper limb] 12-06-2024 Chronic Other non-traumatic joint disorders (2 sources) Joint pain; Translations: [Pain in unspecified joint] 07-31-2024 Episodic Other non-traumatic joint disorders (2 sources) Joint swelling; Translations: [Effusion, unspecified joint] 07-31-2024 Episodic Other non-traumatic joint disorders (2 sources) Pain in left shoulder; Translations: [Pain in joint, shoulder region] 11-29-2024 Episodic Other non-traumatic joint disorders (10 sources) Pain of left shoulder blade; Translations: [Other specified disorders of bone, shoulder] 12-06-2024 Episodic Other non-traumatic joint disorders (4 sources) Shoulder joint pain; Translations: [Pain in left shoulder] 12-06-2024 Episodic Other nutritional; endocrine; and metabolic disorders (10 sources) Hypomagnesemia; Translations: [Hypomagnesemia] 08-06-2023 Chronic Other nutritional; endocrine; and metabolic disorders (1 source) Hypomagnesemia; Translations: [Disorders of magnesium metabolism] 07-29-2023 Chronic Other screening for suspected conditions (not mental disorders or infectious disease) (19 sources) Raised cardiac enzyme or marker; Translations: [Other specified abnormal findings of blood chemistry] 08-06-2023 Episodic Other upper respiratory infections (4 sources) Acute upper respiratory infection, unspecified; Translations: [Acute pharyngitis, unspecified] Episodic Otitis media and related conditions (1 source) Otitis media, unspecified, left ear; Translations: [OTITIS MEDIA UNSPECIFIED LEFT EAR] Onset: 3 Episodic Regional enteritis and ulcerative colitis (1 source) Ulcerative colitis, unspecified, without complications; Translations: [Ulcerative colitis, unspecified, without complications] Onset: 4 Chronic Residual codes; unclassified (1 source) Family history of malignant neoplasm of digestive organs Episodic Residual codes; unclassified (1 source) Pain, unspecified; Translations: [Pain, unspecified] Onset: 4 Episodic Residual codes; unclassified (2 sources) FH: Thyroid disorder; Translations: [Family history of other endocrine, nutritional and metabolic diseases] 07-31-2024 Episodic Sprains and strains (1 source) Strain of muscle, fascia and tendon of lower back, initial encounter Episodic Substance-related disorders (1 source) Nicotine dependence, chewing tobacco, uncomplicated; Translations: [NICOTINE DEPEND CHEW TOBACCO UNCOMP] Onset: 2 Chronic Syncope (12 sources) Syncope; Translations: [Syncope and collapse] Onset: 4 08-06-2023 Episodic Unclassified (1 source) CONTACT W/AND (SUSP) EXPOS COVID-19; Translations: [CONTACT W/AND (SUSP) EXPOS COVID-19] Onset: 3 Unclassified (1 source) dizzy and throwing up Onset: 4 Unclassified (1 source) Acidosis, unspecified; Translations: [Acidosis, unspecified] Onset: 5 Unclassified (2 sources) Acute pain of left shoulder 11-29-2024 Unclassified (1 source) New Patient Onset: 5 Past or Other Problems Problem Classification Problem Date Documented Da te Episodic/Chronic Abdominal hernia (20 sources) Hiatal hernia; Translations: [Diaphragmatic hernia without obstruction or gangrene] Onset: 07-31-2024 07-31-2024 Episodic Anal and rectal conditions (20 sources) Rectal pain; Translations: [Other specified diseases of anus and rectum] Onset: 07-31-2024 07-31-2024 Episodic Esophageal disorders (20 sources) Esophagitis; Translations: [Esophagitis] Onset: 07-31-2024 05-30-2023 Episodic Esophageal disorders (1 source) Esophageal disorders Fluid and electrolyte disorders (20 sources) Lactic acidosis; Translations: [Lactic acidosis] Onset: 09-04-2024 Resolved: 10-29-2024 05-29-2023 Episodic Gastritis and duodenitis (20 sources) Gastritis; Translations: [Gastritis, unspecified, without bleeding] Onset: 07-27-2024 05-30-2023 Episodic Gastrointestinal hemorrhage (20 sources) Rectal hemorrhage; Translations: [Hemorrhage of anus and rectum] Onset: 07-31-2024 07-31-2024 Episodic Hemorrhoids (20 sources) Hemorrhoids; Translations: [Unspecified hemorrhoids] Onset: 07-31-2024 06-18-2024 Episodic Mood disorders (20 sources) Mood disorders Onset: 07-31-2024 Resolved: 08-28-2024 07-31-2024 Nausea and vomiting (20 sources) Vomiting, unspecified; Translations: [Nausea with vomiting, unspecified] Onset: 02-22-2022 Episodic Noninfectious gastroenteritis (20 sources) Microscopic colitis; Translations: [Microscopic colitis, unspecified] Onset: 07-27-2024 Resolved: 07-31-2024 05-29-2023 Chronic Noninfectious gastroenteritis (20 sources) Colitis; Translations: [Noninfective gastroenteritis and colitis, unspecified] Onset: 07-27-2024 05-29-2023 Episodic Other aftercare (1 source) Other intermediate (current) drug therapy; Translations: [[employer] CURRENT DRUG THERAPY] Onset: 02-24-2022 Episodic Other disorders of stomach and duodenum (1 source) Other diseases of stomach and duodenum; Translations: [Other diseases of stomach and duodenum] Onset: 03-22-2024 Episodic Other gastrointestinal disorders (20 sources) Constipation; Translations: [Constipation, unspecified] Onset: 07-27-2024 05-29-2023 Episodic Other gastrointestinal disorders (20 sources) Altered bowel function; Translations: [Change in bowel habit] Onset: 09-04-2024 Resolved: 10-29-2024 08-06-2023 Episodic Other gastrointestinal disorders (20 sources) H/O: colitis; Translations: [Personal history of other diseases of the digestive system] Onset: 09-04-2024 06-13-2024 Episodic Other liver diseases (1 source) Hepatomegaly, not elsewhere classified; Translations: [Hepatomegaly, not elsewhere classified] Onset: 05-28-2023 Episodic Other liver diseases (20 sources) Liver mass; Translations: [Hepatomegaly, not elsewhere classified] Onset: 07-31-2024 07-31-2024 Episodic Other lower respiratory disease (20 sources) H/O: asthma; Translations: [Personal history of other diseases of the respiratory system] Onset: 07-31-2024 07-31-2024 Episodic Spondylosis; intervertebral disc disorders; other back problems (20 sources) Sciatica, left side; Translations: [Chronic low back pain] Onset: 08-28-2024 Episodic Unclassified (2 sources) Contact with and (suspected) exposure to covid-19 Z20.822 Results Test Name Value Interpretation Reference Range Facility CBC panel Auto (Bld)on 01-18 Erythrocyte distribution width (RBC) [Ratio] 12.4 % 11.0 - 15.0 % [facility] Hematocrit (Bld) [Volume fraction] 38.9 % 35.0 - 45.0 % [facility] Hemoglobin (Bld) [Mass/Vol] 13.5 g/dL 11.7 - 15.5 g/dL [facility] Interpretation and review of laboratory results Abnormal [facility] MCH (RBC) [Entitic mass] 35.3 pg High 27.0 - 33.0 pg [facility] MCHC (RBC) [Mass/Vol] 34.7 g/dL 32.0 - 36.0 g/dL [facility] Comment on above: For adults, a slight decrease in the calculated MCHC value (in the range of 30 to 32 g/dL) is most likely not clinically significant; however, it should be interpreted with caution in correlation with other red cell parameters and the patient's clinical condition. MCV (RBC) [Entitic vol] 101.8 fL High 80.0 - 100.0 fL [facility] Platelet mean volume (Bld) [Entitic vol] 9.1 fL 7.5 - 12.5 fL [facility] Platelets (Bld) [#/Vol] 266 10*3/uL [facility] RBC (Bld) [#/Vol] 3.82 10*6/uL [facility] WBC (Bld) [#/Vol] 5.9 10*3/uL [facility] Laboratory - Chemistry and C hemistry - challengeon 01-18-2025 HCG.beta subunit Qn m[IU]/mL mIU/mL [facility] Comment on above: Reference Range Non or premenopausal <5 Postmenopausal <10 Values from different assay methods may vary. The use of this assay to monitor or to diagnose patients with cancer or any condition unrelated to has not been cleared or approved by the FDA or the event staff member of the assay. No Panel Informationon 01-18 Performing Organizat ion Information Site ID: QPT Name: [facility] Address: [address] [place] [address], [address] [place] [id number] Director: Yogi Morin MD Counts include 234 beds at the [facility] HCG ( test) Ql (U)o n 01-17-2025 Preg Test, Ur Negative Negative Counts include 234 beds at the [facility] US PELVIS TRANSVAGINALon US PELVIS TRANSVAGINAL FINDINGS: Uterus 5.8 x 4.8 x 3.9cm [...] BY: ELECTRONICALLY SIGNED BY: Jarett Bryant MD Normal Not Available US Pelvis transvaginalon 1. Right ovarian 1.5 cm benign cyst. 2. Normal uterus, retroversion. TRANSCRIBED BY: ELECTRONICALLY SIGNED BY: Jarett Bryant MD IMAGING FINDINGS: Uterus 5.8 x 4.8 x 3.9cm Endometrium 3 mm Right Ovary 2.9 x 2.0 2.0 cm Left Ovary 1.4 x 1.6 x 1.0 cm Retroverted uterine body and fundus. Normal myometrium and endometrium. No pelvic fluid. No adnexal mass. Right ovarian 1.5 cm benign cyst. IMAGING Jarett Bryant M D - 01/17/2025 FINDINGS: Uterus 5.8 x 4.8 [...] BY: ELECTRONICALLY SIGNED BY: Jarett Bryant MD [facility] Radiology Study observation (narrative) [facility] US Pelvis transvaginalOrdere d By: Jarett Bryant on 01-17-2025 [facility] Work Phone: Urinalysis macro (dipstick) panel (U)on 01-17-2025 Bilirubin, UA Negative Negative - 4(70) +++ mg/dL [facility] Blood, UA Positive Negative - 50 Oumar/mcL [facility] Comment on above: ++ Clarity, UA Clear [facility] Color, UA [place] [facility] Glucose, UA Negative Negative - 1999(110) ++++ mg/dL [facility] Ketones, UA Negative Negative - 160(16) ++++ mg/dL [facility] Leukocytes, UA Negative Negative - 500+++ Tenzin/mcL [facility] Nitrite, UA Negative Negative - Positive [facility] pH, UA 7 5 - 9 [facility] Protein, UA Negative Negative - 1999(20) ++++ mg/dL [facility] Spec Grav, UA 1 1 - 1.03 [facility] Urobilinogen, UA 1.0 0.2 - 12 mg/dL Counts include 234 beds at the [facility] No Panel Informationon 12-06 Harjeet Pelaez NP 12/06/2024 3:29 PM Trigger Point Injection ([place] [address] [place] [address]): left lower trapezius on 12/06/2024 3:16 PM Medications: 40 mg methylPREDNISolone acetate 40 MG/ML Outcome: tolerated well, no immediate complications Site cleaned with isopropyl alcohol. Procedure, treatment alternatives, risks and benefits explained, specific risks discussed. Consent was given by the patient. Counts include 234 beds at the [facility] XR SHOULDER 2+ VIEWS LEFTon 11-29-2024 XR SHOULDER 2+ VIEWS LEFT EXAMINATION/TECHNIQUE: XR SHOULDER 2+ VIEWS LEFT HISTORY: Left shoulder pain. COMPARISON: None RESULT: No acute fracture or dislocation. Glenohumeral joint space maintained. Acromioclavicular joint space maintained. Acromiohumeral interval maintained. Soft tissues unremarkable. Visualized thorax/lungs unremarkable. IMPRESSION: No acute osseous findings. ELECTRONICALLY SIGNED BY: Mickey Park MD Normal Not Available XR Shoulder - left 2 Viewson 11-29-2024 No acute osseous findings. ELECTRONICALLY SIGNED BY: Mickey Park MD IMAGING EXAMINATION/TECHNIQU E: XR SHOULDER 2+ VIEWS LEFT HISTORY: Left shoulder pain. COMPARISON: None RESULT: No acute fracture or dislocation. Glenohumeral joint space maintained. Acromioclavicular joint space maintained. Acromiohumeral interval maintained. Soft tissues unremarkable. Visualized thorax/lungs unremarkable. IMAGING Mickey Park M D - 11/29/2024 EXAMINATION/TECHNIQUE: XR SHOULDER 2+ VIEWS LEFT HISTORY: Left shoulder pain. COMPARISON: None RESULT: No acute fracture or dislocation. Glenohumeral joint space maintained. Acromioclavicular joint space maintained. Acromiohumeral interval maintained. Soft tissues unremarkable. Visualized thorax/lungs unremarkable. IMPRESSION: No acute osseous findings. ELECTRONICALLY SIGNED BY: Mickey Park MD [facility] Radiology Study observation (narrative) [facility] XR Shoulder - left 2 ViewsOr dered By: Mickey Park on 11-29-2024 [facility] Work Phone: Basic Metabolic Panelon 04-0 Anion gap [Moles/Vol] 14.3 mmol/L Normal 6.0-15.0 [facility] Comment on above: Performed By: #### C ALPROTECT, FF QUAL #### [facility] , Calcium [Mass/Vol] 8.4 mg/dL Significant change down 8.6-10.3 [facility] Comment on above: Performed By: #### C ALPROTECT, FF QUAL #### [facility] , Chloride [Moles/Vol] 103 mmol/L Normal 98-107 [facility] Comment on above: Performed By: #### C ALPROTECT, FF QUAL #### [facility] , CO2 [Moles/Vol] 21.5 mmol/L Normal 21.0-31.0 [facility] Comment on above: Performed By: #### C ALPROTECT, FF QUAL #### [facility] , Creatinine [Mass/Vol] 0.57 mg/dL Low 0.60-1.20 [facility] Comment on above: Performed By: #### C ALPROTECT, FF QUAL #### [facility] , Creatinine Clr Calc Pharmacy 126.99 Normal [facility] Comment on above: Performed By: #### C ALPROTECT, FF QUAL #### [facility] , GFR/1.73 sq M.predicted MDRD (S/P/Bld) [Vol rate/Area] mL/min/{1.73_m2} Normal [facility] Comment on above: Performed By: #### C ALPROTECT, FF QUAL #### [facility] , Glucose [Mass/Vol] 61 mg/dL Low 70-100 [facility] Comment on above: Result Comment: [place] Glucose Reference Range is dependent on time and content of last meal. Glucose of more than 200 mg/dL in a nonstressed, ambulatory subject supports the diagnosis of Diabetes Mellitus. ADA recommended reference range Performed By: #### C ALPROTECT, FF QUAL #### [facility] , Potassium [Moles/Vol] 3.8 mmol/L Normal 3.5-5.1 [facility] Comment on above: Performed By: #### C ALPROTECT, FF QUAL #### [facility] , Sodium [Moles/Vol] 135 mmol/L Low 136-145 [facility] Comment on above: Performed By: #### C ALPROTECT, FF QUAL #### [facility] , Urea nitrogen [Mass/Vol] 7 mg/dL Normal 7-25 [facility] Comment on above: Performed By: #### C ALPROTECT, FF QUAL #### [facility] , Calcium [Mass/volume] in Ser um or PlasmaOrdered By: Bailey Cadena on 08-27-2024 Calcium [Mass/Vol] Calcium [Mass/volume ] in Serum or Plasma Invalid Interpretation Code 8.6-10.3 [facility] Comment on above: Delta: 10.0 on 08/26-1146 Carbon dioxide, total [Moles /volume] in Serum or PlasmaOrdered By: Bailey Cadena on 08-27-2024 CO2 [Moles/Vol] Carbon dioxide, tota l [Moles/volume] in Serum or Plasma 21.0-31.0 [facility] Chloride [Moles/volume] in S isidro or PlasmaOrdered By: Bailey Cadena on 08-27-2024 Chloride [Moles/Vol] Chloride [Moles/vol ume] in Serum or Plasma 98-107 [facility] Coagulation Profileon 2024 aPTT Coag (Bld) [Time] 28.8 s Normal 25.1-36.5 [facility] Comment on above: Result Comment: A he matocrit value greater than 55% may lead to inaccurate results in coagulation testing. Patients having hematocrit values >55% require a special collection tube for coagulation studies. Please contact the laboratory at [phone] for redraw instructions. PERFORMED BY: [facility] [place] [address] PATHOLOGIST ACOUSTICAL TILE DRILL PRESS OPERATOR FEDE ASHLEY M.D. Performed By: #### C ALPROTECT, FF QUAL #### [facility] , INR Coag (PPP) [Relative time] 0.9 {INR} Normal [facility] Comment on above: Result Comment: INR Therapeutic [...] 3 - 4.5 Performed By: #### C ALPROTECT, FF QUAL #### [facility] , PT Coag (PPP) [Time] 10.1 s Normal 9.0-12.9 [facility] Comment on above: Result Comment: A he matocrit value greater than 55% may lead to inaccurate results in coagulation testing. Patients having hematocrit values >55% require a special collection tube for coagulation studies. Please contact the laboratory at [phone] for redraw instructions. Performed By: #### C ALPROTECT, FF QUAL #### [facility] , Creatinine [Mass/volume] in Serum or PlasmaOrdered By: Bailey Cadena on 08-27-2024 Creatinine [Mass/Vol] Creatinine [Mass/v olume] in Serum or Plasma Low 0.60-1.20 [facility] Erythrocyte distribution wid th Auto (RBC) [Ratio]Ordered By: Bailey Cadena on 08-27-2024 Erythrocyte distribution width (RBC) [Ratio] Erythrocyte distribution width [Ratio] by Automated count 11.9-15.3 [facility] Glucose [Mass/volume] in Ser um or PlasmaOrdered By: Bailey Cadena on 08-27-2024 Glucose [Mass/Vol] Glucose [Mass/volume ] in Serum or Plasma Low 70-100 [facility] Comment on above: ADA recommended refe rence rangeRandom Glucose Reference Range is dependent on time and content of last meal. Glucose of more than 200 mg/dL in a nonstressed, ambulatory subject supports the diagnosis of Diabetes Mellitus. Hematocrit Auto (Bld) [Volum e fraction]Ordered By: Bailey Cadena on 08-27-2024 Hematocrit (Bld) [Volume fraction] Hematocrit [Volume Fraction] of Blood by Automated count 34.0-46.4 [facility] Hemoglobin [Mass/volume] in BloodOrdered By: Bailey Cadena on 08-27-2024 Hemoglobin (Bld) [Mass/Vol] Hemoglobin [Mass/volume] in Blood 11.8-15.4 [facility] Hemogram CBC Without Diffon 08-27-2024 Erythrocyte distribution width (RBC) [Ratio] 14.1 % Normal 11.9-15.3 [facility] Comment on above: Performed By: #### C ALPROTECT, FF QUAL #### [facility] , Hematocrit (Bld) [Volume fraction] 36.1 % Normal 34.0-46.4 [facility] Comment on above: Performed By: #### C ALPROTECT, FF QUAL #### [facility] , Hemoglobin (Bld) [Mass/Vol] 12.2 g/dL Normal 11.8-15.4 [facility] Comment on above: Performed By: #### C ALPROTECT, FF QUAL #### [facility] , MCH (RBC) [Entitic mass] 33.3 pg Normal 24.7-34.3 [facility] Comment on above: Performed By: #### C ALPROTECT, FF QUAL #### [facility] , MCV (RBC) [Entitic vol] 98.6 fL Normal 80-100 [facility] Comment on above: Performed By: #### C ALPROTECT, FF QUAL #### [facility] , Mean Corpuscular HGB Conc 33.8 g/dL Normal 32.0-35.0 [facility] Comment on above: Performed By: #### C ALPROTECT, FF QUAL #### [facility] , Platelet mean volume (Bld) [Entitic vol] 7.5 fL Normal 6.3-10.7 [facility] Comment on above: Result Comment: PERF ORMED BY: [facility] [address] [place] [address] PATHOLOGIST ACOUSTICAL TILE DRILL PRESS OPERATOR FEDE ASHLEY M.D. Performed By: #### C ALPROTECT, FF QUAL #### [facility] , Platelets (Bld) [#/Vol] 246 10*3/uL Normal 150-450 [facility] Comment on above: Performed By: #### C ALPROTECT, FF QUAL #### [facility] , RBC (Bld) [#/Vol] 3.66 10*6/uL Normal 3.60-5.00 [facility] Comment on above: Performed By: #### C ALPROTECT, FF QUAL #### [facility] , WBC (Bld) [#/Vol] 5.0 10*3/uL Normal 3.8-11.6 [facility] Comment on above: Performed By: #### C ALPROTECT, FF QUAL #### [facility] , INR in Platelet poor plasma by Coagulation assayOrdered By: Bailey Cadena on 08-27-2024 INR Coag (PPP) [Relative time] INR in Platelet poor plasma by Coagulation assay [facility] Comment on above: INR Therapeutic Rang [...] with mechanical heart valves: 3 - 4.5 Leukocytes [#/volume] correc james for nucleated erythrocytes in Blood by Automated counOrdered By: Bailey Cadena on 08-27-2024 WBC corrected for nucl RBC Auto (Bld) [#/Vol] Leukocytes [#/volume] corrected for nucleated erythrocytes in Blood by Automated coun 3.8-11.6 [facility] MCH Auto (RBC) [Entitic mass ]Ordered By: Bailey Cadena on 08-27-2024 MCH (RBC) [Entitic mass] MCH [Entitic mass] by Automated count 24.7-34.3 [facility] MCHC Auto (RBC) [Mass/Vol]Or dered By: Bailey Cadena on 08-27-2024 MCHC (RBC) [Mass/Vol] MCHC [Mass/volume] by Automated count 32.0-35.0 [facility] MCV Auto (RBC) [Entitic vol] Ordered By: Bailey Cadena on 08-27-2024 MCV (RBC) [Entitic vol] MCV [Entitic volume] by Automated count 80-100 [facility] Magnesiumon 08-27-2024 Magnesium [Mass/Vol] 1.5 mg/dL Low 1.9-2.7 [facility] Comment on above: Result Comment: PERF ORMED BY: [facility] [address] [facility] [place] [place] [address] PATHOLOGIST ACOUSTICAL TILE DRILL PRESS OPERATOR FEDE ASHLEY M.D. Performed By: #### C ALPROTECT, FF QUAL #### [facility] , Magnesium [Mass/volume] in S isidro or PlasmaOrdered By: Bailey Cadena on 08-27-2024 Magnesium [Mass/Vol] Magnesium [Mass/vol ume] in Serum or Plasma Low 1.9-2.7 [facility] No Panel InformationOrdered By: Bailey Cadena on 08-27-2024 Estimated GFR (CKD-EPI) > 60.0 mL/Min [facility] Creatinine Clearance (Chem 126.99 [facility] Platelet mean volume Auto (B ld) [Entitic vol]Ordered By: Bailey Cadena on 08-27-2024 Platelet mean volume (Bld) [Entitic vol] Platelet mean volume [Entitic volume] in Blood by Automated count 6.3-10.7 [facility] Platelets Auto (Bld) [#/Vol] Ordered By: Bailey Cadena on 08-27-2024 Platelets (Bld) [#/Vol] Platelets [#/volume] in Blood by Automated count 150-450 [facility] Potassium [Moles/volume] in Serum or PlasmaOrdered By: Bailey Cadena on 08-27-2024 Potassium [Moles/Vol] Potassium [Moles/v olume] in Serum or Plasma 3.5-5.1 [facility] Prothrombin time (PT)Ordered By: Bailey Cadena on 08-27-2024 PT Coag (PPP) [Time] Prothrombin time (PT) 9.0- 12.9 [facility] Comment on above: A hematocrit value g reater than 55% may lead to inaccurate results in coagulation testing. Patients having hematocrit values >55% require a special collection tube for coagulation studies. Please contact the laboratory at [phone] for redraw instructions. RBC Auto (Bld) [#/Vol]Ordere d By: Bailey Cadena on 08-27-2024 RBC (Bld) [#/Vol] Erythrocytes [#/volu me] in Blood by Automated count 3.60-5.00 [facility] Serum or plasma anion gap de terminationOrdered By: Bailey Cadena on 08-27-2024 Anion gap [Moles/Vol] Serum or plasma an ion gap determination 6.0-15.0 [facility] Sodium [Moles/volume] in Ser um or PlasmaOrdered By: Bailey Cadena on 08-27-2024 Sodium [Moles/Vol] Sodium [Moles/volume ] in Serum or Plasma Low 136-145 [facility] Urea nitrogen [Mass/volume] in Serum or PlasmaOrdered By: Bailey Cadena on 08-27-2024 Urea nitrogen [Mass/Vol] Urea nitrogen [Mass/volume] in Serum or Plasma 7-25 [facility] aPTT in Platelet poor plasma by Coagulation assayOrdered By: Bailey Cadena on 08-27-2024 aPTT Coag (PPP) [Time] Activated partial thromboplastin time (aPTT) in platelet poor plasma by coagulation a 25.1-36.5 [facility] Comment on above: A hematocrit value g reater than 55% may lead to inaccurate results in coagulation testing. Patients having hematocrit values >55% require a special collection tube for coagulation studies. Please contact the laboratory at [phone] for redraw instructions. Alanine aminotransferase [En zymatic activity/volume] in Serum or PlasmaOrdered By: Johnnie Arreaga on 08-26-2024 ALT [Catalytic activity/Vol] Alanine aminotransferase [Enzymatic activity/volume] in Serum or Plasma High 52 [facility] Albumin [Mass/volume] in Ser um or Plasma by Bromocresol green (BCG) dye binding methoOrdered By: Johnnie Arreaga on 08-26-2024 Albumin BCG dye [Mass/Vol] Albumin [Mass/volume] in Serum or Plasma by Bromocresol green (BCG) dye binding metho 3.5-5.7 [facility] Alkaline phosphatase [Enzyma tic activity/volume] in Serum or PlasmaOrdered By: Johnnie Arreaga on 08-26-2024 ALP [Catalytic activity/Vol] Alkaline phosphatase [Enzymatic activity/volume] in Serum or Plasma 34-104 [facility] Amphetamine Screen Ql (U)Ord ered By: Johnnie Arreaga on 08-26-2024 Amphetamines Ql (U) Amphetamines screen Negativ e [facility] Appearance of UrineOrdered B y: Johnnie Arreaga on 08-26-2024 Appearance (U) Urine appearance Clear [facility] Aspartate aminotransferase [ Enzymatic activity/volume] in Serum or PlasmaOrdered By: Johnnie Arreaga on 08-26-2024 AST [Catalytic activity/Vol] Aspartate aminotransferase [Enzymatic activity/volume] in Serum or Plasma High 13-39 [facility] Bacteria [Presence] in Urine by AutomatedOrdered By: Johnnie Arreaga on 08-26-2024 Bacteria Auto Ql (U) Bacteria [Presence] in Urine by Automated None Seen [facility] Barbiturates [Presence] in U rine by Screen methodOrdered By: Johnnie Arreaga on 08-26-2024 Barbiturates Screen Ql (U) Barbiturates [Presence] in Urine by Screen method Negative [facility] Basic Metabolic Panelon Anion gap [Moles/Vol] 32.0 mmol/L High 6.0-15.0 [facility] Comment on above: Performed By: #### C ALPROTECT, FF QUAL #### [facility] , Calcium [Mass/Vol] 10.0 mg/dL Normal 8.6-10.3 [facility] Comment on above: Performed By: #### C ALPROTECT, FF QUAL #### [facility] , Chloride [Moles/Vol] 100 mmol/L Normal 98-107 [facility] Comment on above: Performed By: #### C ALPROTECT, FF QUAL #### [facility] , CO2 [Moles/Vol] 10.7 mmol/L Low 21.0-31.0 [facility] Comment on above: Performed By: #### C ALPROTECT, FF QUAL #### [facility] , Creatinine [Mass/Vol] 0.77 mg/dL Normal 0.60-1.20 [facility] Comment on above: Performed By: #### C ALPROTECT, FF QUAL #### [facility] , Creatinine Clr Calc Pharmacy 95.71 Normal [facility] Comment on above: Performed By: #### C ALPROTECT, FF QUAL #### [facility] , GFR/1.73 sq M.predicted MDRD (S/P/Bld) [Vol rate/Area] mL/min/{1.73_m2} Normal [facility] Comment on above: Performed By: #### C ALPROTECT, FF QUAL #### [facility] , Glucose [Mass/Vol] 50 mg/dL Low 70-100 [facility] Comment on above: Result Comment: [place] om Glucose Reference Range is dependent on time and content of last meal. Glucose of more than 200 mg/dL in a nonstressed, ambulatory subject supports the diagnosis of Diabetes Mellitus. ADA recommended reference range Performed By: #### C ALPROTECT, FF QUAL #### [facility] , Potassium [Moles/Vol] 4.7 mmol/L Normal 3.5-5.1 [facility] Comment on above: Performed By: #### C ALPROTECT, FF QUAL #### [facility] , Sodium [Moles/Vol] 138 mmol/L Normal 136-145 [facility] Comment on above: Performed By: #### C ALPROTECT, FF QUAL #### [facility] , Urea nitrogen [Mass/Vol] 8 mg/dL Normal 7-25 [facility] Comment on above: Performed By: #### C ALPROTECT, FF QUAL #### [facility] , Basophils Auto (Bld) [#/Vol] Ordered By: Johnnie Arreaga on 08-26-2024 Basophils (Bld) [#/Vol] Automated basophil count 0.0-0.2 [facility] Basophils/100 WBC Auto (Bld) Ordered By: Johnnie Arreaga on 08-26-2024 Basophils/100 WBC (Bld) Automated basophil % . [facility] Benzodiazepines Screen Ql (U )Ordered By: Johnnie Arreaga on 08-26-2024 Benzodiazepines Ql (U) Benzodiazepines [Presence] in Urine by Screen method Negative [facility] Benzoylecgonine [Presence] i n Urine by Screen methodOrdered By: Johnnie Arreaga on 08-26-2024 Benzoylecgonine Screen Ql (U) Benzoylecgonine [Presence] in Urine by Screen method Negative [facility] Beta Hydroxybuterateon 08-26 Beta Hydroxybuterate 7.12 mmol/L High 0.02-0.27 [facility] Comment on above: Result Comment: PERF ORMED BY: [facility] [address] [place] [address] PATHOLOGIST ACOUSTICAL TILE DRILL PRESS OPERATOR FEDE ASHLEY M.D. Performed By: #### B SAM #### [address] Beta hydroxybutyrate [Moles/ volume] in Serum or PlasmaOrdered By: Johnine Arreaga on 08-26-2024 Beta hydroxybutyrate [Moles/Vol] Beta hydroxybutyrate [Moles/volume] in Serum or Plasma High 0.02-0.27 [facility] Bilirubin Test strip Ql (U)O rdered By: Johnnie Arreaga on 08-26-2024 Bilirubin Ql (U) Bilirubin.total [Pre sence] in Urine by Test strip Negative [facility] Bilirubin.direct [Mass/volum e] in Serum or PlasmaOrdered By: Johnnie Arreaga on 08-26-2024 Bilirubin.direct [Mass/Vol] Bilirubin.direct [Mass/volume] in Serum or Plasma 0.03-0.18 [facility] Bilirubin.total [Mass/volume ] in Serum or PlasmaOrdered By: Johnnie Arreaga on 08-26-2024 Bilirubin [Mass/Vol] Bilirubin.total [Mass/volume] in Serum or Plasma 0.3-1.[address] [facility] [address] abdomen pelvis w conon CT abdomen pelvis w con [facility] [address] [place] [address] CT Scan Report Signed Patient: Yane Wallace MR#: [id number] : 1995 Acct:[id number] Age/Sex: 29 / F ADM Date: 08/26/24 Loc: ER Room: Type: [facility] ER Attending Dr: Copies to: Johnnie Arreaga PA-C Ordering Provider: Johnnie Arreaga PA-C Date of Service: 08/26/24 CT/CT abdomen pelvis w con: ABD pain, possible diverticulitis CT ABDOMEN AND PELVIS WITH INTRAVENOUS CONTRAST: CLINICAL HISTORY: Abdominal pain, nausea/vomiting, rectal bleeding COMPARISON: 06/13/2024 TECHNIQUE: Spiral images were obtained through the abdomen and pelvis following the administration of intravenous contrast. This CT exam was performed using one or more following dose reduction techniques: Automated exposure control, adjustment of the mA and/or kV according to patient size, or use of iterative reconstruction technique. FINDINGS: Lung Bases: [No focal opacity] Organs:Hypoattenuating liver suggestive fatty infiltration. Spleen, adrenals, kidneys, pancreas unremarkable. Gallbladder unremarkable.[ GI: Mild retained stool. Prior appendectomy. No bowel obstruction. No pericecal inflammatory change.[Small hiatal hernia. Pelvis:[Bilateral ovarian. Uterus unremarkable for the patient's age.] Peritoneum/Retroperitoneum :No free air or free fluid. No suspicious adenopathy.[ Abd wall/Bones:No suspicious osseous lesion.[ CT/CT abdomen pelvis w con IMPRESSION: Negative acute inflammatory process or bowel obstruction. Fatty infiltration liver. Small hiatal hernia. Impression dictated by: Jonathan Daniel M.D.08/26/2024 2:24 PM Dictation Location: [place] [address] Transcribed By: SUSY 08/26/24 1424 Dictated By: Jonathan Daniel MD 08/26/24 1418 Signed By: 08/26/24 1424 Normal [facility] Calcium [Mass/volume] in Ser um or PlasmaOrdered By: Johnnie Arraega on 08-26-2024 Calcium [Mass/Vol] Calcium [Mass/volume ] in Serum or Plasma 8.6-10.3 [facility] Cannabinoids [Presence] in U rine by Screen methodOrdered By: Johnnie Arreaga on 08-26-2024 Cannabinoids Screen Ql (U) Cannabinoids [Presence] in Urine by Screen method Negative [facility] Comment on above: These are unconfirme d results and should not be used for legal purposes. Drug Cut-Off Concentration: AMPH 1000 ng/mL HALIMA 200 ng/mL JOSUÉ 200 ng/mL COCM 300 ng/mL OP 300 ng/mL PCP 25 ng/mL THC 20 ng/mL Carbon dioxide, total [Moles /volume] in Serum or PlasmaOrdered By: Johnnie Arreaga on 08-26-2024 CO2 [Moles/Vol] Carbon dioxide, tota l [Moles/volume] in Serum or Plasma Low 21.0-31.0 [facility] Chloride [Moles/volume] in S isidro or PlasmaOrdered By: Johnnie Arreaga on 08-26-2024 Chloride [Moles/Vol] Chloride [Moles/vol ume] in Serum or Plasma 98-107 [facility] Color Auto (U)Ordered By: Coats on 08-26-2024 Color (U) Color of Urine by Auto Yellow [facility] Complete Blood Count Auto Di ffon 08-26-2024 Basophils (Bld) [#/Vol] 0.0 10*3/uL Normal 0.0-0.2 [facility] Comment on above: Result Comment: PERF ORMED BY: [facility] [place] [address] PATHOLOGIST ACOUSTICAL TILE DRILL PRESS OPERATOR FEDE ASHLEY M.D. Performed By: #### C ALPROTECT, FF QUAL #### [facility] , Basophils/100 WBC (Bld) 0.5 % Normal . [facility] Comment on above: Performed By: #### C ALPROTECT, FF QUAL #### [facility] , Eosinophils (Bld) [#/Vol] 0.0 10*3/uL Normal 0.0-0.45 [facility] Comment on above: Performed By: #### C ALPROTECT, FF QUAL #### [facility] , Eosinophils/100 WBC (Bld) 0.0 % Normal . [facility] Comment on above: Performed By: #### C ALPROTECT, FF QUAL #### [facility] , Erythrocyte distribution width (RBC) [Ratio] 14.2 % Normal 11.9-15.3 [facility] Comment on above: Performed By: #### C ALPROTECT, FF QUAL #### [facility] , Hematocrit (Bld) [Volume fraction] 44.0 % Normal 34.0-46.4 [facility] Comment on above: Performed By: #### C ALPROTECT, FF QUAL #### [facility] , Hemoglobin (Bld) [Mass/Vol] 14.8 g/dL Normal 11.8-15.4 [facility] Comment on above: Performed By: #### C ALPROTECT, FF QUAL #### [facility] , Lymphocytes (Bld) [#/Vol] 0.8 10*3/uL Low 1.00-4.8 [facility] Comment on above: Performed By: #### C ALPROTECT, FF QUAL #### [facility] , Lymphocytes/100 WBC (Bld) 9.4 % Normal . [facility] Comment on above: Performed By: #### C ALPROTECT, FF QUAL #### [facility] , MCH (RBC) [Entitic mass] 33.7 pg Normal 24.7-34.3 [facility] Comment on above: Performed By: #### C ALPROTECT, FF QUAL #### [facility] , MCV (RBC) [Entitic vol] 100.0 fL Normal 80-100 [facility] Comment on above: Performed By: #### C ALPROTECT, FF QUAL #### [facility] , Mean Corpuscular HGB Conc 33.7 g/dL Normal 32.0-35.0 [facility] Comment on above: Performed By: #### C ALPROTECT, FF QUAL #### [facility] , Monocytes (Bld) [#/Vol] 0.3 10*3/uL Normal 0.0-0.8 [facility] Comment on above: Performed By: #### C ALPROTECT, FF QUAL #### [facility] , Monocytes/100 WBC (Bld) 16.45 % Normal 0.00-20.00 [facility] Comment on above: Performed By: #### C ALPROTECT, FF QUAL #### [facility] , Monocytes/100 WBC (Bld) 3.6 % Normal . [facility] Comment on above: Performed By: #### C ALPROTECT, FF QUAL #### [facility] , Neutrophils (Bld) [#/Vol] 7.0 10*3/uL Normal 1.8-7.7 [facility] Comment on above: Performed By: #### C ALPROTECT, FF QUAL #### [facility] , Neutrophils/100 WBC (Bld) 86.5 % Normal . [facility] Comment on above: Performed By: #### C ALPROTECT, FF QUAL #### [facility] , NRBC% 0.0 /100{WBC} Normal 0-0.5 [facility] Comment on above: Performed By: #### C ALPROTECT, FF QUAL #### [facility] , Platelet mean volume (Bld) [Entitic vol] 7.7 fL Normal 6.3-10.7 [facility] Comment on above: Performed By: #### C ALPROTECT, FF QUAL #### [facility] , Platelets (Bld) [#/Vol] 374 10*3/uL Normal 150-450 [facility] Comment on above: Performed By: #### C ALPROTECT, FF QUAL #### [facility] , RBC (Bld) [#/Vol] 4.40 10*6/uL Normal 3.60-5.00 [facility] Comment on above: Performed By: #### C ALPROTECT, FF QUAL #### [facility] , WBC (Bld) [#/Vol] 8.1 10*3/uL Normal 3.8-11.6 [facility] Comment on above: Performed By: #### C ALPROTECT, FF QUAL #### [facility] , Creatinine [Mass/volume] in Serum or PlasmaOrdered By: Johnnie Arreaga on 08-26-2024 Creatinine [Mass/Vol] Creatinine [Mass/v olume] in Serum or Plasma 0.60-1.20 [facility] Dipstick and Microscopicon 0 08-26-2024 Appearance (U) Clear Normal Clear [facility] Comment on above: Order Comment: Name Collection Type:: Clean-Voided Midstream Performed By: #### M G #### [address] Bacteria,Urine Rare Normal None Seen [facility] Comment on above: Order Comment: Name Collection Type:: Clean-Voided Midstream Performed By: #### M G #### [place] [id number] [place] Bilirubin,Urine Negative Normal Negative [facility] Comment on above: Order Comment: Name Collection Type:: Clean-Voided Midstream Performed By: #### M G #### [place] [id number] [place] Color (U) Light-Yellow Normal Yellow [facility] Comment on above: Order Comment: Name Collection Type:: Clean-Voided Midstream Performed By: #### M G #### [address] Glucose Ql (U) Normal Normal Normal [facility] Comment on above: Order Comment: Name Collection Type:: Clean-Voided Midstream Performed By: #### M G #### [place] [address] [place] Hyaline Casts,Urine None Normal 0-8 [facility] Comment on above: Order Comment: Name Collection Type:: Clean-Voided Midstream Performed By: #### M G #### [address] Ketones Ql (U) 4+ High Negative [facility] Comment on above: Order Comment: Name Collection Type:: Clean-Voided Midstream Performed By: #### M G #### [place] [id number] [place] Leukocyte esterase Test strip Ql (U) Negative Normal Negative [facility] Comment on above: Order Comment: Name Collection Type:: Clean-Voided Midstream Performed By: #### M G #### [place] [address] [place] Mucus,Urine Rare Normal [facility] Comment on above: Order Comment: Name Collection Type:: Clean-Voided Midstream Performed By: #### M G #### [place] [id number] [place] Nitrite,Urine Negative Normal Negative [facility] Comment on above: Order Comment: Name Collection Type:: Clean-Voided Midstream Performed By: #### M G #### [place] [id number] [place] Occult Blood,Urine Negative Normal Negative [facility] Comment on above: Order Comment: Name Collection Type:: Clean-Voided Midstream Performed By: #### M G #### [place] [address] [place] pH (U) 5.0 [pH] Normal 5.0-9.0 [facility] Comment on above: Order Comment: Name Collection Type:: Clean-Voided Midstream Performed By: #### M G #### [address] Protein (U) [Mass/Vol] 30 mg/dL High Negative [facility] Comment on above: Order Comment: Name Collection Type:: Clean-Voided Midstream Performed By: #### M G #### [place] [address] [place] RBC,Urine 1-2 Normal 0-4 [facility] Comment on above: Order Comment: Name Collection Type:: Clean-Voided Midstream Performed By: #### M G #### [place] [address] [place] Specificy [place],Urine 1.021 Normal 1.001-1.03 0 [facility] Comment on above: Order Comment: Name Collection Type:: Clean-Voided Midstream Performed By: #### M G #### [place] [address] [place] Squamous Epithelial Cell,Urine 3-4 High 0-2 [facility] Comment on above: Order Comment: Name Collection Type:: Clean-Voided Midstream Performed By: #### M G #### [place] [address] [place] Urobilinogen,Urine Normal Normal Normal [facility] Comment on above: Order Comment: Name Collection Type:: Clean-Voided Midstream Performed By: #### M G #### [address] WBC,Urine 1-2 Normal 0-4 [facility] Comment on above: Order Comment: Name Collection Type:: Clean-Voided Midstream Performed By: #### M G #### [address] Drug Screen,Urineon 08-27-19 25 Amphetamine Screen,Urine Negative Normal Negative [facility] Comment on above: Performed By: #### M G #### [address] Barbiturate Screen,Urine Negative Normal Negative [facility] Comment on above: Performed By: #### M G #### [address] Benzodiazepines Screen,Urine Negative Normal Negative [facility] Comment on above: Performed By: #### M G #### [address] Cannabinoid Screen,Urine Negative Normal Negative [facility] Comment on above: Result Comment: Thes e are unconfirmed results and should not be used for legal purposes. Drug Cut-Off Concentration: AMPH 1000 ng/mL HALIMA 200 ng/mL JOSUÉ 200 ng/mL COCM 300 ng/mL OP 300 ng/mL PCP 25 ng/mL THC 20 ng/mL PERFORMED BY: [place] [address] PATHOLOGIST ACOUSTICAL TILE DRILL PRESS OPERATOR FEDE ASHLYE M.D. Performed By: #### M G #### [place] [address] [place] Cocaine Screen,Urine Negative Normal Negative [facility] Comment on above: Performed By: #### M G #### [place] [address] [place] Opiate Screen,Urine Positive High Negative [facility] Comment on above: Performed By: #### M G #### [place] [address] [place] Phencyclidine Screen,Urine Negative Normal Negative [facility] Comment on above: Performed By: #### M G #### [address] Eosinophils Auto (Bld) [#/Vo l]Ordered By: Johnnie Arreaga on 08-26-2024 Eosinophils (Bld) [#/Vol] Automated eosinophil count 0.0-0.45 [facility] Eosinophils/100 WBC Auto (Bl d)Ordered By: Johnnie Arreaga on 08-26-2024 Eosinophils/100 WBC (Bld) Automated eosinophil % . [facility] Epithelial cells.squamous [# /area] in Urine sediment by Automated countOrdered By: Johnnie Arreaga on 08-26-2024 Epithelial cells.squamous Auto (Urine sed) [#/Area] Epithelial cells.squamous [#/area] in Urine sediment by Automated count High 0-2 [facility] Erythrocyte distribution wid th Auto (RBC) [Ratio]Ordered By: Johnnie Arreaga on 08-26-2024 Erythrocyte distribution width (RBC) [Ratio] Erythrocyte distribution width [Ratio] by Automated count 11.9-15.3 [facility] Erythrocytes [#/area] in Uri ne sediment by Automated countOrdered By: Johnnie Arreaga on 08-26-2024 RBC Auto (Urine sed) [#/Area] Erythrocytes [#/area] in Urine sediment by Automated count 0-4 [facility] Globulin Calc (S) [Mass/Vol] Ordered By: Johnnie Arreaga on 08-26-2024 Globulin (S) [Mass/Vol] Serum globulin measurement by calculation (mass/volume) [facility] Glucose Glucometer (BldC) [M ass/Vol]Ordered By: Bailey Cadena on 08-26-2024 Glucose [Mass/Vol] Capillary blood gluc ose measurement by glucometer (mass/volume) [facility] Comment on above: Random Glucose Refer ence Range is dependent on time and content of last meal. Glucose of more than 200 mg/dL in a nonstressed, ambulatory subject supports the diagnosis of Diabetes Mellitus. Glucose Glucometer (BldC) [M ass/Vol]Ordered By: Johnnie Arreaga on 08-26-2024 Glucose [Mass/Vol] Capillary blood gluc ose measurement by glucometer (mass/volume) [facility] Comment on above: Random Glucose Refer ence Range is dependent on time and content of last meal. Glucose of more than 200 mg/dL in a nonstressed, ambulatory subject supports the diagnosis of Diabetes Mellitus. Glucose Poct Glucometerson 0 08-26-2024 Glucose [Mass/Vol] 93 mg/dL Normal [facility] Comment on above: Result Comment: [place] om Glucose Reference Range is dependent on time and content of last meal. Glucose of more than 200 mg/dL in a nonstressed, ambulatory subject supports the diagnosis of Diabetes Mellitus. PERFORMED BY: [place] [address] PATHOLOGIST ACOUSTICAL TILE DRILL PRESS OPERATOR FEDE ASHLEY M.D. Performed By: #### C ALPROTECT, FF QUAL #### [facility] , Glucose [Mass/Vol] 190 mg/dL Normal [facility] Comment on above: Result Comment: [place] [facility] Glucose Reference Range is dependent on time and content of last meal. Glucose of more than 200 mg/dL in a nonstressed, ambulatory subject supports the diagnosis of Diabetes Mellitus. PERFORMED BY: [place] [address] PATHOLOGIST ACOUSTICAL TILE DRILL PRESS OPERATOR FEDE ASHLEY M.D. Performed By: #### M G #### [address] Glucose [Mass/volume] in Ser um or PlasmaOrdered By: Johnnie Arreaga on 08-26-2024 Glucose [Mass/Vol] Glucose [Mass/volume ] in Serum or Plasma Low 70-100 [facility] Comment on above: ADA recommended refe rence rangeRandom Glucose Reference Range is dependent on time and content of last meal. Glucose of more than 200 mg/dL in a nonstressed, ambulatory subject supports the diagnosis of Diabetes Mellitus. Glucose [Mass/volume] in Uri ne by Test stripOrdered By: Johnnie Arreaga on 08-26-2024 Glucose Test strip (U) [Mass/Vol] Glucose [Mass/volume] in Urine by Test strip Normal [facility] HCG ( test) [place].rapi d Ql (U)Ordered By: Jhonnie Arreaga on 08-26-2024 HCG ( test) Ql (U) Urine human chorionic gonadotropin (hCG) detection by immunoassay [facility] HCG,Urineon 08-26-2024 Beta HCG ( test) Ql (U) Negative Normal [facility] Comment on above: Order Comment: Name Collection Type:: Clean-Voided Midstream Result Comment: PERF ORMED BY: [place] [address] PATHOLOGIST ACOUSTICAL TILE DRILL PRESS OPERATOR FEDE SAHLEY M.D. Performed By: #### M G #### [address] Hematocrit Auto (Bld) [Volum e fraction]Ordered By: Johnnie Arreaga on 08-26-2024 Hematocrit (Bld) [Volume fraction] Hematocrit [Volume Fraction] of Blood by Automated count 34.0-46.4 [facility] Hemoglobin Test strip Ql (U) Ordered By: Johnnie Arreaga on 08-26-2024 Hemoglobin Ql (U) Hemoglobin [Presence ] in Urine by Test strip Negative [facility] Hemoglobin [Mass/volume] in BloodOrdered By: Johnnie Arreaga on 08-26-2024 Hemoglobin (Bld) [Mass/Vol] Hemoglobin [Mass/volume] in Blood 11.8-15.4 [facility] Hepatic Panelon 08-26-2024 Albumin [Mass/Vol] 5.1 g/dL Normal 3.5-5.7 [facility] Comment on above: Performed By: #### C ALPROTECT, FF QUAL #### [facility] , Albumin/Globulin [Mass ratio] 1.4 {ratio} Normal [facility] Comment on above: Performed By: #### C ALPROTECT, FF QUAL #### [facility] , ALP [Catalytic activity/Vol] 68 U/L Normal 34-104 [facility] Comment on above: Performed By: #### C ALPROTECT, FF QUAL #### [facility] , ALT [Catalytic activity/Vol] 107 U/L High 7-52 [facility] Comment on above: Performed By: #### C ALPROTECT, FF QUAL #### [facility] , AST [Catalytic activity/Vol] 82 U/L High 13-39 [facility] Comment on above: Performed By: #### C ALPROTECT, FF QUAL #### [facility] , Bilirubin [Mass/Vol] 0.7 mg/dL Normal 0.3-1.0 [facility] Comment on above: Performed By: #### C ALPROTECT, FF QUAL #### [facility] , Bilirubin,Indirect 0.6 mg/dL Normal [facility] Comment on above: Performed By: #### C ALPROTECT, FF QUAL #### [facility] , Bilirubin.indirect [Mass/Vol] 0.10 mg/dL Normal 0.03-0.18 [facility] Comment on above: Performed By: #### C ALPROTECT, FF QUAL #### [facility] , Globulin (S) [Mass/Vol] 3.6 g/dL Normal [facility] Comment on above: Performed By: #### C ALPROTECT, FF QUAL #### [facility] , Protein [Mass/Vol] 8.7 g/dL Normal 6.4-8.9 [facility] Comment on above: Performed By: #### C ALPROTECT, FF QUAL #### [facility] , Hyaline casts [#/area] in Ur ine sediment by Automated countOrdered By: Johnnie Arreaga on 08-26-2024 Hyaline casts Auto (Urine sed) [#/Area] Hyaline casts [#/area] in Urine sediment by Automated count 0-8 [facility] Ketones Test strip Ql (U)Ord ered By: Johnnie Arreaga on 08-26-2024 Ketones Ql (U) Ketones [Presence] i n Urine by Test strip High Negative [facility] Leukocyte esterase [Presence ] in Urine by Test stripOrdered By: Johnnie Arreaga on 08-26-2024 Leukocyte esterase Test strip Ql (U) Leukocyte esterase [Presence] in Urine by Test strip Negative [facility] Leukocytes [#/area] in Urine sediment by Automated countOrdered By: Johnnie Arreaga on 08-26-2024 WBC Auto (Urine sed) [#/Area] Leukocytes [#/area] in Urine sediment by Automated count 0-4 [facility] Leukocytes [#/volume] correc james for nucleated erythrocytes in Blood by Automated counOrdered By: Johnnie Arreaga on 08-26-2024 WBC corrected for nucl RBC Auto (Bld) [#/Vol] Leukocytes [#/volume] corrected for nucleated erythrocytes in Blood by Automated coun 3.8-11.6 [facility] Lipaseon 08-26-2024 Lipase [Catalytic activity/Vol] 28.0 U/L Normal 11.0-82.0 [facility] Comment on above: Result Comment: PERF ORMED BY: [facility] [address] [place] [address] PATHOLOGIST ACOUSTICAL TILE DRILL PRESS OPERATOR FEDE ASHLEY M.D. Performed By: #### C ALPROTECT, FF QUAL #### [facility] , Lipase [Enzymatic activity/v olume] in Serum or PlasmaOrdered By: Johnnie Arreaga on 08-26-2024 Lipase [Catalytic activity/Vol] Lipase [Enzymatic activity/volume] in Serum or Plasma 11.0-82.0 [facility] Lymphocytes Auto (Bld) [#/Vo l]Ordered By: Johnnie Arreaga on 08-26-2024 Lymphocytes (Bld) [#/Vol] Lymphocytes [#/volume] in Blood by Automated count Low 1.00-4.8 [facility] Lymphocytes/100 WBC Auto (Bl d)Ordered By: Johnnie Arreaga on 08-26-2024 Lymphocytes/100 WBC (Bld) Lymphocytes/100 leukocytes in Blood by Automated count . [facility] MCH Auto (RBC) [Entitic mass ]Ordered By: Johnnie Arreaga on 08-26-2024 MCH (RBC) [Entitic mass] MCH [Entitic mass] by Automated count 24.7-34.3 [facility] MCHC Auto (RBC) [Mass/Vol]Or dered By: Johnnie Arreaga on 08-26-2024 MCHC (RBC) [Mass/Vol] MCHC [Mass/volume] by Automated count 32.0-35.0 [facility] MCV Auto (RBC) [Entitic vol] Ordered By: Johnnie Arreaga on 08-26-2024 MCV (RBC) [Entitic vol] MCV [Entitic volume] by Automated count 80-100 [facility] Monocyte distribution width [Entitic volume] in Blood by AutomatedOrdered By: Johnnie Arreaga on 08-26-2024 Monocyte distribution width Auto (Bld) [Entitic vol] Monocyte distribution width [Entitic volume] in Blood by Automated 0.00-20.00 [facility] Monocytes Auto (Bld) [#/Vol] Ordered By: Johnnie Arreaga on 08-26-2024 Monocytes (Bld) [#/Vol] Automated blood monocyte count 0.0-0.8 [facility] Monocytes/100 WBC Auto (Bld) Ordered By: Johnnie Arreaga on 08-26-2024 Monocytes/100 WBC (Bld) Automated monocyte % . [facility] Mucus [Presence] in Urine by AutomatedOrdered By: Johnnie Arreaga on 08-26-2024 Mucus Auto Ql (U) Mucus [Presence] in Urine by Automated [facility] Neutrophils Auto (Bld) [#/Vo l]Ordered By: Johnnie Arreaga on 08-26-2024 Neutrophils (Bld) [#/Vol] Neutrophils [#/volume] in Blood by Automated count 1.8-7.7 [facility] Neutrophils/100 WBC Auto (Bl d)Ordered By: Johnnie Arreaga on 08-26-2024 Neutrophils/100 WBC (Bld) Automated neutrophil % . [facility] Nitrite Test strip Ql (U)Ord ered By: Johnnie Arreaga on 08-26-2024 Nitrite Ql (U) Nitrite [Presence] i n Urine by Test strip Negative [facility] No Panel InformationOrdered By: Johnnie Arreaga on 08-26-2024 Blood Gas Critical Value See comment [facility] Comment on above: Critical Value bhatti d on: 08/26/2024 at 13:43 Blood Gas Sample Site Venous Fir [facility] FiO2 Na % [facility] Venous Blood Base Excess -18.3 mmol/L Low -3.0-3.0 [facility] Venous Blood Oxygen Content 6.8 mmol/L 6.6-9.7 [facility] Venous Blood Oxygen Saturation 76.9 % High 73.0-76.0 [facility] Venous Blood Partial Pressure CO2 27.8 mm[Hg] Low 38.0-50.0 [facility] Venous Blood Partial Pressure O2 49.2 mm[Hg] High 35.0-45.0 [facility] Venous Blood pH 7.14 Critically low 7.32-7.43 [facility] Estimated GFR (CKD-EPI) > 60.0 mL/Min [facility] Creatinine Clearance (Chem 95.71 [facility] Nucleated erythrocytes [Pres ence] in Blood by Automated countOrdered By: Johnnie Arreaga on 08-26-2024 Nucleated RBC Auto Ql (Bld) Nucleated erythrocytes [Presence] in Blood by Automated count 0-0.5 [facility] Opiates [Presence] in Urine by Screen methodOrdered By: Johnnie Arreaga on 08-26-2024 Opiates Screen Ql (U) Opiates [Presence] in Urine by Screen method High Negative [facility] Phencyclidine Screen Ql (U)O rdered By: Johnnie Arreaga on 08-26-2024 Phencyclidine Ql (U) Phencyclidine [Pres ence] in Urine by Screen method Negative [facility] Platelet mean volume Auto (B ld) [Entitic vol]Ordered By: Johnnie Arreaga on 08-26-2024 Platelet mean volume (Bld) [Entitic vol] Platelet mean volume [Entitic volume] in Blood by Automated count 6.3-10.7 [facility] Platelets Auto (Bld) [#/Vol] Ordered By: Johnnie Arreaga on 08-26-2024 Platelets (Bld) [#/Vol] Platelets [#/volume] in Blood by Automated count 150-450 [facility] Potassium [Moles/volume] in Serum or PlasmaOrdered By: Johnnie Arreaga on 08-26-2024 Potassium [Moles/Vol] Potassium [Moles/v olume] in Serum or Plasma 3.5-5.1 [facility] Protein Test strip (U) [Mass /Vol]Ordered By: Johnnie Arreaga on 08-26-2024 Protein (U) [Mass/Vol] Protein [Mass/volume] in Urine by Test strip High Negative [facility] Protein [Mass/volume] in Ser um or PlasmaOrdered By: Johnnie Arreaga on 08-26-2024 Protein [Mass/Vol] Protein [Mass/volume ] in Serum or Plasma 6.4-8.9 [facility] RBC Auto (Bld) [#/Vol]Ordere d By: Johnnie Arreaga on 08-26-2024 RBC (Bld) [#/Vol] Erythrocytes [#/volu me] in Blood by Automated count 3.60-5.00 [facility] Serum or plasma albumin/glob ulin mass ratioOrdered By: Johnnie Arreaga on 08-26-2024 Albumin/Globulin [Mass ratio] Serum or plasma albumin/globulin mass ratio [facility] Serum or plasma anion gap de terminationOrdered By: Johnnie Arreaga on 08-26-2024 Anion gap [Moles/Vol] Serum or plasma an ion gap determination High 6.0-15.0 [facility] Serum or plasma non-glucuron idated bilirubin measurement (mass/volume)Ordered By: Johnnie Arreaga on 08-26-2024 Bilirubin.indirect [Mass/Vol] Serum or plasma non-glucuronidated bilirubin measurement (mass/volume) [facility] Sodium [Moles/volume] in Ser um or PlasmaOrdered By: Johnnie Arreaga on 08-26-2024 Sodium [Moles/Vol] Sodium [Moles/volume ] in Serum or Plasma 136-145 [facility] Specific gravity Test strip (U) [Rel density]Ordered By: Johnnie Arreaga on 08-26-2024 Specific gravity (U) [Rel density] Specific gravity of Urine by Test strip 1.001-1.[address] [facility] Urea nitrogen [Mass/volume] in Serum or PlasmaOrdered By: Johnnie Arreaga 08-26-2024 Urea nitrogen [Mass/Vol] Urea nitrogen [Mass/volume] in Serum or Plasma 7-25 [facility] Urobilinogen Test strip (U) [Mass/Vol]Ordered By: Johnnie Arreaga on 08-26-2024 Urobilinogen (U) [Mass/Vol] Urobilinogen [Mass/volume] in Urine by Test strip Normal [facility] Venous Blood GasOrdered By: Johnnie Arreaga on 08-26-2024 CO2 [Moles/Vol] 10.1 mmol/L Low 24.0-29.0 [facility] Comment on above: Performed By: #### M G #### [address] HCO3 (Bld) [Moles/Vol] 9.3 mmol/L Low 23.0-29.0 [facility] Comment on above: Performed By: #### M G #### [address] Venous Blood Gason Respiratory Critical Normal [facility] Comment on above: Result Comment: Crit ical Value called on: 08/26/2024 at 13:43 PERFORMED BY: [place] [address] PATHOLOGIST ACOUSTICAL TILE DRILL PRESS OPERATOR FEDE ASHLEY M.D. Performed By: #### M G #### [address] VBG Base Excess -18.3 mmol/L Low -3.0-3.0 [facility] Comment on above: Performed By: #### M G #### [address] VBG Draw Site Venous Normal [facility] Comment on above: Performed By: #### M G #### [address] VBG Frac Inspired O2 Normal [facility] Comment on above: Performed By: #### M G #### [address] VBG O2 Content 6.8 mmol/L Normal 6.6-9.7 [facility] Comment on above: Performed By: #### M G #### [address] VBG Oxygen Saturation 76.9 % High 73.0-76.0 [facility] Comment on above: Performed By: #### M G #### [facility] [address] VBG PCO2 27.8 mm[Hg] Low 38.0-50.0 [facility] Comment on above: Performed By: #### M G #### [facility] [address] VBG PH Venous PH 7.14 Off scale low 7.32-7.43 [facility] Comment on above: Performed By: #### M G #### [facility] [address] [place] [address] VBG PO2 49.2 mm[Hg] High 35.0-45.0 [facility] Comment on above: Performed By: #### M G #### [address] WBC Auto (Bld) [#/Vol]Ordere d By: Johnnie Arreaga on 08-26-2024 WBC (Bld) [#/Vol] Leukocytes [#/volume ] in Blood by Automated count 3.8-11.6 [facility] pH Test strip (U)Ordered By: Johnnie Arreaga on 08-26-2024 pH (U) pH of Urine by Test strip 5.0-9.0 [facility] Calprotectin [Mass/mass] in StoolOrdered By: Antonio Pompa on 06-29-2024 Calprotectin (Stl) [Mass/Mass] Calprotectin [Mass/mass] in Stool 0-120 [facility] Comment on above: Concentration Interp retation Follow-Up< 5 - 50 ug/g Normal None>50 -120 ug/g Borderline Re-evaluate in 4-6 weeks >120 ug/g Abnormal Repeat as clinically indicatedPerformed at: - [facility] [id number] Director: Chung Hutson MD, Phone: [phone] Calprotectin, Fecalon 2024 Calprotectin, Fecal 60 Normal 0-120 [facility] Comment on above: Result Comment: Conc entration Interpretation Follow-Up < 5 - 50 ug/g Normal None >50 -120 ug/g Borderline Re-evaluate in 4-6 weeks >120 ug/g Abnormal Repeat as clinically indicated Performed at: [address] [id number] Joinery Patternmaker: Chung Hutson MD, Phone: [phone] PERFORMED BY: [address] [address] PATHOLOGIST ACOUSTICAL TILE DRILL PRESS OPERATOR FEDE ASHLEY M.D. Performed By: #### C ALPROTECT, FF QUAL #### [facility] , Fecal Fat, Qualitativeon Fats, Neutral Normal Normal . [facility] Comment on above: Result Comment: Norm al (<60 Droplets/HPF) This test was developed and its performance characteristics determined by [facility]. It has not been cleared or approved by the Food and Drug Administration. Performed By: #### C ALPROTECT, FF QUAL #### [facility] , Fats, Total Normal Normal . [facility] Comment on above: Result Comment: Norm al (<100 Droplets/HPF) This test was developed and its performance characteristics determined by [facility]. It has not been cleared or approved by the Food and Drug Administration. Performed at: [facility] [id number] Joinery Patternmaker: Jona Guy PhD, Phone: [phone] PERFORMED BY: [address] [address] PATHOLOGIST ACOUSTICAL TILE DRILL PRESS OPERATOR FEDE ASHLEY M.D. Performed By: #### C ALPROTECT, FF QUAL #### [facility] , Fecal fat detectionOrdered B y: Antonio Pompa on 06-29-2024 Fat Ql (Stl) Fat [Presence] in Stool . [facility] Comment on above: Normal (<100 Droplet s/HPF)This test was developed and its performance characteristicsdetermined by [facility]. It has not been cleared orapproved by the Food and Drug Administration.Performed at: [facility] [id number] Director: Jona Guy PhD, Phone: [phone] Neutral fat measurementOrder ed By: Antonio Pompa on 06-29-2024 Fat.neutral Ql (Stl) Fat.neutral [Presen ce] in Stool . [facility] Comment on above: Normal (<60 Droplets /HPF)This test was developed and its performance characteristicsdetermined by [facility]. It has not been cleared orapproved by the Food and Drug Administration. Alanine aminotransferase [En zymatic activity/volume] in Serum or PlasmaOrdered By: Renny Estrada on 06-13-2024 ALT [Catalytic activity/Vol] Alanine aminotransferase [Enzymatic activity/volume] in Serum or Plasma 7-52 [facility] Albumin [Mass/volume] in Ser um or Plasma by Bromocresol green (BCG) dye binding methoOrdered By: Renny Estrada on 06-13-2024 Albumin BCG dye [Mass/Vol] Albumin [Mass/volume] in Serum or Plasma by Bromocresol green (BCG) dye binding metho 3.5-5.7 [facility] Alkaline phosphatase [Enzyma tic activity/volume] in Serum or PlasmaOrdered By: Renny Estrada on 06-13-2024 ALP [Catalytic activity/Vol] Alkaline phosphatase [Enzymatic activity/volume] in Serum or Plasma 34-104 [facility] Appearance of UrineOrdered B y: Renny Estrada on 06-13-2024 Appearance (U) Urine appearance Clear [facility] Aspartate aminotransferase [ Enzymatic activity/volume] in Serum or PlasmaOrdered By: Renny Estrada on 06-13-2024 AST [Catalytic activity/Vol] Aspartate aminotransferase [Enzymatic activity/volume] in Serum or Plasma 13-39 [facility] Basophils Auto (Bld) [#/Vol] Ordered By: Renny Estrada on 06-13-2024 Basophils (Bld) [#/Vol] Automated basophil count 0.0-0.2 [facility] Basophils/100 WBC Auto (Bld) Ordered By: Renny Estrada on 06-13-2024 Basophils/100 WBC (Bld) Automated basophil % . [facility] Bilirubin Test strip Ql (U)O rdered By: Renny Estrada on 06-13-2024 Bilirubin Ql (U) Bilirubin.total [Pre sence] in Urine by Test strip Negative [facility] Bilirubin.total [Mass/volume ] in Serum or PlasmaOrdered By: Renny Estrada on 06-13-2024 Bilirubin [Mass/Vol] Bilirubin.total [Mass/volume] in Serum or Plasma 0.3-1.0 [facility] C reactive protein [Mass/vol ume] in Serum or PlasmaOrdered By: Renny Estrada on 06-13-2024 CRP [Mass/Vol] C reactive protein [Mass/volume] in Serum or Plasma 0.0-0.5 [facility] C-Reactive Proteinon 025 CRP [Mass/Vol] mg/L Normal 0.0-0.5 [facility] Comment on above: Result Comment: PERF ORMED BY: [place] [address] PATHOLOGIST ACOUSTICAL TILE DRILL PRESS OPERATOR FEDE ASHLEY M.D. Performed By: #### C ALPROTECT, FF QUAL #### [facility] , CT abdomen pelvis w conon CT abdomen pelvis w con [facility] [address] [place] [address] CT Scan Report Signed Patient: Yane Wallace MR#: [id number] 83 : 1995 Acct:[id number] Age/Sex: 28 / F ADM Date: 06/13/24 Loc: ER Room: [facility] Attending Dr: Copies to: Renny Estrada Jr, MD Ordering Provider: Renny Estrada Jr, MD Date of Service: 06/13/24 CT/CT abdomen pelvis w con: abd pain CT abdomen pelvis w con 06/13/2024 9:09 PM SIGNS AND SYMPTOMS: Generalized abdominal pain, nausea and vomiting TECHNIQUE: Multidetector ct axial images of the abdomen and pelvis were obtained with IV contrast. Multiplanar reformats were performed and reviewed to further define anatomy and possible pathology. CT was performed with one or more of the following dose reduction techniques: Automated exposure control, adjustment of the mA and/or kV according to patient size, or use of iterative reconstruction technique. COMPARISON: 03/07/2024 FINDINGS: Lower Chest: Within normal limits. ABDOMEN: Liver: There is a 14 mm focus of hypoattenuation in the right hepatic lobe which is unchanged. This is of uncertain etiology. The liver is diffusely hypoattenuating suggesting hepatic steatosis. Bile Ducts: Normal caliber. Gallbladder: No calcified gallstones. Normal caliber wall. Pancreas: Within normal limits. Spleen: Within normal limits. Adrenals: Within normal limits. Kidneys: Within normal limits. Pelvis: Reproductive Organs: No dominant follicles are noted in the adnexa bilaterally measuring up to 2.2 cm in greatest dimension on the right. These are similar to the prior exam. Ureters: Within normal limits. Bladder: Within normal limits. Bowel: Normal caliber. There is evidence of previous appendectomy. There is hypoattenuation along the wall of the colon suggesting chronic inflammatory colitis. Mesenteric Lymph Nodes: No enlarged mesenteric lymph nodes. Peritoneum: No ascites or free air, no fluid collection. Vessels: within normal limits Retroperitoneum: Within normal limits. Abdominal Wall: Within normal limits. Bones: Degenerative changes are noted in the thoracolumbar spine and sacroiliac joints. CT/CT abdomen pelvis w con IMPRESSION: No bowel obstruction or obstructive uropathy. No free fluid or free air. No acute intra-abdominal pathology. Findings suggest hepatic steatosis similar to the prior exam with possible focal fatty sparing or hemangioma in the right hepatic lobe showing no significant interval change. There is hypoattenuation along the wall of the colon suggesting chronic inflammatory colitis. This is unchanged. Impression dictated by: Jeff Martines M.D.06/13/2024 10:06 PM Dictation Location: [place] [address] Transcribed By: [facility] 06/13/242205 Dictated By: Jeff Martines II, MD 06/13/242150 Signed By: 06/13/242205 Normal [facility] Calcium [Mass/volume] in Ser um or PlasmaOrdered By: Renny Estrada on 06-13-2024 Calcium [Mass/Vol] Calcium [Mass/volume ] in Serum or Plasma 8.6-10.3 [facility] Carbon dioxide, total [Moles /volume] in Serum or PlasmaOrdered By: Renny Estrada on 06-13-2024 CO2 [Moles/Vol] Carbon dioxide, tota l [Moles/volume] in Serum or Plasma Low 21.0-31.0 [facility] Chloride [Moles/volume] in S isidro or PlasmaOrdered By: Renny Estrada on 06-13-2024 Chloride [Moles/Vol] Chloride [Moles/vol ume] in Serum or Plasma 98-107 [facility] Color Auto (U)Ordered By: Tip cr Sean on 06-13-2024 Color (U) Color of Urine by Auto Yellow [facility] Blood Count Auto Di ffon 06-13-2024 Basophils (Bld) [#/Vol] 0.1 10*3/uL Normal 0.0-0.2 [facility] Comment on above: Result Comment: PERF ORMED BY: [place] [address] PATHOLOGIST ACOUSTICAL TILE DRILL PRESS OPERATOR FEDE ASHLEY M.D. Performed By: #### L IPASE, CMP, CBC #### [address] Basophils/100 WBC (Bld) 0.9 % Normal . [facility] Comment on above: Performed By: #### L IPASE, CMP, CBC #### [place] [address] [place] Eosinophils (Bld) [#/Vol] 0.0 10*3/uL Normal 0.0-0.45 [facility] Comment on above: Performed By: #### L IPASE, CMP, CBC #### [place] [address] [place] Eosinophils/100 WBC (Bld) 0.7 % Normal . [facility] Comment on above: Performed By: #### L IPASE, CMP, CBC #### [address] Erythrocyte distribution width (RBC) [Ratio] 13.5 % Normal 11.9-15.3 [facility] Comment on above: Performed By: #### L IPASE, CMP, CBC #### [address] Hematocrit (Bld) [Volume fraction] 41.8 % Normal 34.0-46.4 [facility] Comment on above: Performed By: #### L IPASE, CMP, CBC #### [address] Hemoglobin (Bld) [Mass/Vol] 14.4 g/dL Normal 11.8-15.4 [facility] Comment on above: Performed By: #### L IPASE, CMP, CBC #### [address] Lymphocytes (Bld) [#/Vol] 2.4 10*3/uL Normal 1.00-4.8 [facility] Comment on above: Performed By: #### L IPASE, CMP, CBC #### [address] Lymphocytes/100 WBC (Bld) 34.0 % Normal . [facility] Comment on above: Performed By: #### L IPASE, CMP, CBC #### [address] MCH (RBC) [Entitic mass] 33.2 pg Normal 24.7-34.3 [facility] Comment on above: Performed By: #### L IPASE, CMP, CBC #### [address] MCV (RBC) [Entitic vol] 96.4 fL Normal 80-100 [facility] Comment on above: Performed By: #### L IPASE, CMP, CBC #### [address] Mean Corpuscular HGB Conc 34.5 g/dL Normal 32.0-35.0 [facility] Comment on above: Performed By: #### L IPASE, CMP, CBC #### [address] Monocytes (Bld) [#/Vol] 0.3 10*3/uL Normal 0.0-0.8 [facility] Comment on above: Performed By: #### L IPASE, CMP, CBC #### [place] [id number] [place] Monocytes/100 WBC (Bld) 15.65 % Normal 0.00-20.00 [facility] Comment on above: Performed By: #### L IPASE, CMP, CBC #### [place] [address] [place] Monocytes/100 WBC (Bld) 4.0 % Normal . [facility] Comment on above: Performed By: #### L IPASE, CMP, CBC #### [address] Neutrophils (Bld) [#/Vol] 4.2 10*3/uL Normal 1.8-7.7 [facility] Comment on above: Performed By: #### L IPASE, CMP, CBC #### [address] Neutrophils/100 WBC (Bld) 60.4 % Normal . [facility] Comment on above: Performed By: #### L IPASE, CMP, CBC #### [address] NRBC% 0.0 /100{WBC} Normal 0-0.5 [facility] Comment on above: Performed By: #### L IPASE, CMP, CBC #### [address] Platelet mean volume (Bld) [Entitic vol] 7.1 fL Normal 6.3-10.7 [facility] Comment on above: Performed By: #### L IPASE, CMP, CBC #### [place] [address] [place] Platelets (Bld) [#/Vol] 370 10*3/uL Normal 150-450 [facility] Comment on above: Performed By: #### L IPASE, CMP, CBC #### [place] [address] [place] RBC (Bld) [#/Vol] 4.34 10*6/uL Normal 3.60-5.00 [facility] Comment on above: Performed By: #### L IPASE, CMP, CBC #### [address] WBC (Bld) [#/Vol] 7.0 10*3/uL Normal 3.8-11.6 [facility] Comment on above: Performed By: #### L IPASE, CMP, CBC #### [address] Comprehensive Metabolic Pane sourav 06-13-2024 Albumin [Mass/Vol] 4.9 g/dL Normal 3.5-5.7 [facility] Comment on above: Performed By: #### L IPASE, CMP, CBC #### [address] Albumin/Globulin [Mass ratio] 1.5 {ratio} Normal [facility] Comment on above: Performed By: #### L IPASE, CMP, CBC #### [address] ALP [Catalytic activity/Vol] 58 U/L Normal 34-104 [facility] Comment on above: Performed By: #### L IPASE, CMP, CBC #### [address] ALT [Catalytic activity/Vol] 23 U/L Normal 7-52 [facility] Comment on above: Performed By: #### L IPASE, CMP, CBC #### [address] Anion gap [Moles/Vol] 17.6 mmol/L High 6.0-15.0 [facility] Comment on above: Performed By: #### L IPASE, CMP, CBC #### [address] AST [Catalytic activity/Vol] 39 U/L Normal 13-39 [facility] Comment on above: Performed By: #### L IPASE, CMP, CBC #### [address] Bilirubin [Mass/Vol] 0.9 mg/dL Normal 0.3-1.0 [facility] Comment on above: Performed By: #### L IPASE, CMP, CBC #### [facility] [address] [place] [address] [place] Calcium [Mass/Vol] 9.2 mg/dL Normal 8.6-10.3 [facility] Comment on above: Performed By: #### L IPASE, CMP, CBC #### [facility] [address] [place] [address] [place] Chloride [Moles/Vol] 106 mmol/L Normal 98-107 [facility] Comment on above: Performed By: #### L IPASE, CMP, CBC #### [facility] [address] [place] [address] [place] CO2 [Moles/Vol] 20.6 mmol/L Low 21.0-31.0 [facility] Comment on above: Performed By: #### L IPASE, CMP, CBC #### [facility] [address] [place] [address] [place] Creatinine [Mass/Vol] 0.65 mg/dL Normal 0.60-1.20 [facility] Comment on above: Performed By: #### L IPASE, CMP, CBC #### [facility] [address] [place] [address] [place] Creatinine Clr Calc Pharmacy 115.41 Normal [facility] Comment on above: Performed By: #### L IPASE, CMP, CBC #### [facility] [address] [place] [address] [place] GFR/1.73 sq M.predicted MDRD (S/P/Bld) [Vol rate/Area] mL/min/{1.73_m2} Normal [facility] Comment on above: Performed By: #### L IPASE, CMP, CBC #### [facility] [address] [place] [address] [place] Globulin (S) [Mass/Vol] 3.2 g/dL Normal [facility] Comment on above: Performed By: #### L IPASE, CMP, CBC #### [facility] [address] [place] [address] [place] Glucose [Mass/Vol] 81 mg/dL Normal 70-100 [facility] Comment on above: Result Comment: [place] Glucose Reference Range is dependent on time and content of last meal. Glucose of more than 200 mg/dL in a nonstressed, ambulatory subject supports the diagnosis of Diabetes Mellitus. ADA recommended reference range Performed By: #### L IPASE, CMP, CBC #### [facility] [address] [place] [id number] [facility] Potassium [Moles/Vol] 4.2 mmol/L Normal 3.5-5.1 [facility] Comment on above: Performed By: #### L IPASE, CMP, CBC #### [facility] [address] [place] [address] [place] Protein [Mass/Vol] 8.1 g/dL Normal 6.4-8.9 [facility] Comment on above: Performed By: #### L IPASE, CMP, CBC #### [facility] [address] [place] [address] [place] Sodium [Moles/Vol] 140 mmol/L Normal 136-145 [facility] Comment on above: Performed By: #### L IPASE, CMP, CBC #### [facility] [address] [place] [id number] [place] Urea nitrogen [Mass/Vol] 10 mg/dL Normal 7-25 [facility] Comment on above: Performed By: #### L IPASE, CMP, CBC #### [facility] [address] [place] [id number] [place] Creatinine [Mass/volume] in Serum or PlasmaOrdered By: Renny Estrada on 06-13-2024 Creatinine [Mass/Vol] Creatinine [Mass/v olume] in Serum or Plasma 0.60-1.20 [facility] ECG 12 lead ECGon 06-13-2024 ECG 12 lead ECG [facility] [address] [place] [address] Electrocardiograph Report Signed Patient: Yane Wallace MR#: [id number] 83 : 1995 Acct:[id number] Age/Sex: 28 / F ADM Date: 06/13/24 Loc: ER Room: Type: [facility] ER Attending Dr: Ordering Provider: Renny Estrada Jr, MD Date of Service: 06/13/24 ECG/ECG 12 lead ECG: Abdominal Pain Copies to: Test Reason : Blood Pressure : 121/85 mmHG Vent. Rate : 111 BPM Atrial Rate : 111 BPM P-R Int : 142 ms QRS Dur : 80 ms QT Int : 356 ms P-R-T Axes : * 82 186 degrees QTcB Int : 484 ms Sinus tachycardia Nonspecific T wave abnormality When compared with ECG of 07-Mar-2024 13:56, Vent. rate has increased by 38 bpm Minimal criteria for Inferior infarct are now present T wave inversion now evident in Inferior leads Nonspecific T wave abnormality now evident in Lateral leads Confirmed by RENNY ESTRADA MD ([id number]) on 06/14/2024 6:01:14 AM Referred By: Electronically Signed By: RENNY ESTRADA MD Transcribed By: MUS Signed By Renny Estrada Jr, MD 0601 Normal [facility] Eosinophils Auto (Bld) [#/Vo l]Ordered By: Renny Estrada on 06-13-2024 Eosinophils (Bld) [#/Vol] Automated eosinophil count 0.0-0.45 [facility] Eosinophils/100 WBC Auto (Bl d)Ordered By: Renny Estrada on 06-13-2024 Eosinophils/100 WBC (Bld) Automated eosinophil % . [facility] Erythrocyte Sedimentation Ra valorie 06-13-2024 ESR (Bld) [Velocity] 20 mm/h High 0-19 [facility] Comment on above: Result Comment: PERF ORMED BY: [facility] [address] [facility] [place] [address] PATHOLOGIST ACOUSTICAL TILE DRILL PRESS OPERATOR FEDE ASHLEY M.D. Performed By: #### C ALPROTECT, FF QUAL #### [facility] , Erythrocyte distribution wid th Auto (RBC) [Ratio]Ordered By: Renny Estrada on 06-13-2024 Erythrocyte distribution width (RBC) [Ratio] Erythrocyte distribution width [Ratio] by Automated count 11.9-15.3 [facility] Erythrocyte sedimentation ra te by Photometric methodOrdered By: Renny Estrada on 06-13-2024 ESR Photometric method (Bld) [Velocity] Erythrocyte sedimentation rate by Photometric method High 0-19 [facility] Globulin Calc (S) [Mass/Vol] Ordered By: Renny Estrada on 06-13-2024 Globulin (S) [Mass/Vol] Serum globulin measurement by calculation (mass/volume) [facility] Glucose [Mass/volume] in Ser um or PlasmaOrdered By: Renny Estrada on 06-13-2024 Glucose [Mass/Vol] Glucose [Mass/volume ] in Serum or Plasma 70-100 [facility] Comment on above: ADA recommended refe rence rangeRandom Glucose Reference Range is dependent on time and content of last meal. Glucose of more than 200 mg/dL in a nonstressed, ambulatory subject supports the diagnosis of Diabetes Mellitus. Glucose [Mass/volume] in Uri ne by Test stripOrdered By: Renny Estrada on 06-13-2024 Glucose Test strip (U) [Mass/Vol] Glucose [Mass/volume] in Urine by Test strip Normal [facility] HCG ( test) [place].rapi d Ql (U)Ordered By: Renny Estrada on 06-13-2024 HCG ( test) Ql (U) Urine human chorionic gonadotropin (hCG) detection by immunoassay [facility] HCG,Urineon 06-13-2024 Beta HCG ( test) Ql (U) Negative Normal [facility] Comment on above: Order Comment: Name Collection Type:: Clean-Voided Midstream Result Comment: PERF ORMED BY: [facility] [address] [place] [address] PATHOLOGIST ACOUSTICAL TILE DRILL PRESS OPERATOR FEDE ASHLEY M.D. Performed By: #### C ALPROTECT, FF QUAL #### [facility] , Hematocrit Auto (Bld) [Volum e fraction]Ordered By: Renny Estrada on 06-13-2024 Hematocrit (Bld) [Volume fraction] Hematocrit [Volume Fraction] of Blood by Automated count 34.0-46.4 [facility] Hemoglobin Test strip Ql (U) Ordered By: Renny Estrada on 06-13-2024 Hemoglobin Ql (U) Hemoglobin [Presence ] in Urine by Test strip Negative [facility] Hemoglobin [Mass/volume] in BloodOrdered By: Renny Estrada on 06-13-2024 Hemoglobin (Bld) [Mass/Vol] Hemoglobin [Mass/volume] in Blood 11.8-15.4 [facility] Ketones Test strip Ql (U)Ord ered By: Renny Estrada on 06-13-2024 Ketones Ql (U) Ketones [Presence] i n Urine by Test strip Negative [facility] Leukocyte esterase [Presence ] in Urine by Test stripOrdered By: Renny Estrada on 06-13-2024 Leukocyte esterase Test strip Ql (U) Leukocyte esterase [Presence] in Urine by Test strip Negative [facility] Leukocytes [#/volume] correc james for nucleated erythrocytes in Blood by Automated counOrdered By: Renny Estrada on 06-13-2024 WBC corrected for nucl RBC Auto (Bld) [#/Vol] Leukocytes [#/volume] corrected for nucleated erythrocytes in Blood by Automated coun 3.8-11.6 [facility] Lipaseon 06-13-2024 Lipase [Catalytic activity/Vol] 26.0 U/L Normal 11.0-82.0 [facility] Comment on above: Result Comment: PERF ORMED BY: [facility] [address] [facility] [place] [address] PATHOLOGIST ACOUSTICAL TILE DRILL PRESS OPERATOR FEDE ASHLEY M.D. Performed By: #### C ALPROTECT, FF QUAL #### [facility] , Lipase [Enzymatic activity/v olume] in Serum or PlasmaOrdered By: Renny Estrada on 06-13-2024 Lipase [Catalytic activity/Vol] Lipase [Enzymatic activity/volume] in Serum or Plasma 11.0-82.0 [facility] Lymphocytes Auto (Bld) [#/Vo l]Ordered By: Renny Estrada on 06-13-2024 Lymphocytes (Bld) [#/Vol] Lymphocytes [#/volume] in Blood by Automated count 1.00-4.8 [facility] Lymphocytes/100 WBC Auto (Bl d)Ordered By: Renny Estrada on 06-13-2024 Lymphocytes/100 WBC (Bld) Lymphocytes/100 leukocytes in Blood by Automated count . [facility] MCH Auto (RBC) [Entitic mass ]Ordered By: Renny Estrada on 06-13-2024 MCH (RBC) [Entitic mass] MCH [Entitic mass] by Automated count 24.7-34.3 [facility] MCHC Auto (RBC) [Mass/Vol]Or dered By: Renny Estrada on 06-13-2024 MCHC (RBC) [Mass/Vol] MCHC [Mass/volume] by Automated count 32.0-35.0 [facility] MCV Auto (RBC) [Entitic vol] Ordered By: Renny Estrada on 06-13-2024 MCV (RBC) [Entitic vol] MCV [Entitic volume] by Automated count 80-100 [facility] Monocyte distribution width [Entitic volume] in Blood by AutomatedOrdered By: Renny Estrada on 06-13-2024 Monocyte distribution width Auto (Bld) [Entitic vol] Monocyte distribution width [Entitic volume] in Blood by Automated 0.00-20.00 [facility] Monocytes Auto (Bld) [#/Vol] Ordered By: Renny Estrada on 06-13-2024 Monocytes (Bld) [#/Vol] Automated blood monocyte count 0.0-0.8 [facility] Monocytes/100 WBC Auto (Bld) Ordered By: Renny Estrada on 06-13-2024 Monocytes/100 WBC (Bld) Automated monocyte % . [facility] Neutrophils Auto (Bld) [#/Vo l]Ordered By: Renny Estrada on 06-13-2024 Neutrophils (Bld) [#/Vol] Neutrophils [#/volume] in Blood by Automated count 1.8-7.7 [facility] Neutrophils/100 WBC Auto (Bl d)Ordered By: Renny Estrada on 06-13-2024 Neutrophils/100 WBC (Bld) Automated neutrophil % . [facility] Nitrite Test strip Ql (U)Ord ered By: Renny Estrada on 06-13-2024 Nitrite Ql (U) Nitrite [Presence] i n Urine by Test strip Negative [facility] No Panel InformationOrdered By: Renny Estrada on 06-13-2024 Estimated GFR (CKD-EPI) > 60.0 mL/Min [facility] Creatinine Clearance (Chem 115.41 [facility] Nucleated erythrocytes [Pres ence] in Blood by Automated countOrdered By: Renny Estrada on 06-13-2024 Nucleated RBC Auto Ql (Bld) Nucleated erythrocytes [Presence] in Blood by Automated count 0-0.5 [facility] Platelet mean volume Auto (B ld) [Entitic vol]Ordered By: Renny Estrada on 06-13-2024 Platelet mean volume (Bld) [Entitic vol] Platelet mean volume [Entitic volume] in Blood by Automated count 6.3-10.7 [facility] Platelets Auto (Bld) [#/Vol] Ordered By: Renny Etsrada on 06-13-2024 Platelets (Bld) [#/Vol] Platelets [#/volume] in Blood by Automated count 150-450 [facility] Potassium [Moles/volume] in Serum or PlasmaOrdered By: Renny Estrada on 06-13-2024 Potassium [Moles/Vol] Potassium [Moles/v olume] in Serum or Plasma 3.5-5.1 [facility] Protein Test strip (U) [Mass /Vol]Ordered By: Renny Estrada on 06-13-2024 Protein (U) [Mass/Vol] Protein [Mass/volume] in Urine by Test strip Negative [facility] Protein [Mass/volume] in Ser um or PlasmaOrdered By: Renny Estrada on 06-13-2024 Protein [Mass/Vol] Protein [Mass/volume ] in Serum or Plasma 6.4-8.9 [facility] RBC Auto (Bld) [#/Vol]Ordere d By: Renny Estrada on 06-13-2024 RBC (Bld) [#/Vol] Erythrocytes [#/volu me] in Blood by Automated count 3.60-5.00 [facility] Serum or plasma albumin/glob ulin mass ratioOrdered By: Renny Estrada on 06-13-2024 Albumin/Globulin [Mass ratio] Serum or plasma albumin/globulin mass ratio [facility] Serum or plasma anion gap de terminationOrdered By: Renny Estrada on 06-13-2024 Anion gap [Moles/Vol] Serum or plasma an ion gap determination High 6.0-15.0 [facility] Sodium [Moles/volume] in Ser um or PlasmaOrdered By: Renny Estrada on 06-13-2024 Sodium [Moles/Vol] Sodium [Moles/volume ] in Serum or Plasma 136-145 [facility] Specific gravity Test strip (U) [Rel density]Ordered By: Renny Estrada on 06-13-2024 Specific gravity (U) [Rel density] Specific gravity of Urine by Test strip 1.001-1.[address] [facility] Urea nitrogen [Mass/volume] in Serum or PlasmaOrdered By: Renny Estrada on 06-13-2024 Urea nitrogen [Mass/Vol] Urea nitrogen [Mass/volume] in Serum or Plasma 7-25 [facility] Urinalysison 06-13-2024 Appearance (U) Clear Normal Clear [facility] Comment on above: Order Comment: Name Collection Type:: Clean-Voided Midstream Performed By: #### C ALPROTECT, FF QUAL #### [facility] , Bilirubin,Urine Negative Normal Negative [facility] Comment on above: Order Comment: Name Collection Type:: Clean-Voided Midstream Performed By: #### C ALPROTECT, FF QUAL #### [facility] , Color (U) Colorless Normal Yellow [facility] Comment on above: Order Comment: Name Collection Type:: Clean-Voided Midstream Performed By: #### C ALPROTECT, FF QUAL #### [facility] , Glucose Ql (U) Normal Normal Normal [facility] Comment on above: Order Comment: Name Collection Type:: Clean-Voided Midstream Performed By: #### C ALPROTECT, FF QUAL #### [facility] , Ketones Ql (U) Negative Normal Negative [facility] Comment on above: Order Comment: Name Collection Type:: Clean-Voided Midstream Performed By: #### C ALPROTECT, FF QUAL #### [facility] , Leukocyte esterase Test strip Ql (U) Negative Normal Negative [facility] Comment on above: Order Comment: Name Collection Type:: Clean-Voided Midstream Performed By: #### C ALPROTECT, FF QUAL #### [facility] , Nitrite,Urine Negative Normal Negative [facility] Comment on above: Order Comment: Name Collection Type:: Clean-Voided Midstream Performed By: #### C ALPROTECT, FF QUAL #### [facility] , Occult Blood,Urine Negative Normal Negative [facility] Comment on above: Order Comment: Name Collection Type:: Clean-Voided Midstream Performed By: #### C ALPROTECT, FF QUAL #### [facility] , pH (U) 6.0 [pH] Normal 5.0-9.0 [facility] Comment on above: Order Comment: Name Collection Type:: Clean-Voided Midstream Performed By: #### C ALPROTECT, FF QUAL #### [facility] , Protein,Urine Negative Normal Negative [facility] Comment on above: Order Comment: Name Collection Type:: Clean-Voided Midstream Performed By: #### C ALPROTECT, FF QUAL #### [facility] , Specificy [place],Urine 1.003 Normal 1.001-1.03 0 [facility] Comment on above: Order Comment: Name Collection Type:: Clean-Voided Midstream Performed By: #### C ALPROTECT, FF QUAL #### [facility] , Urobilinogen,Urine Normal Normal Normal [facility] Comment on above: Order Comment: Name Collection Type:: Clean-Voided Midstream Performed By: #### C ALPROTECT, FF QUAL #### [facility] , Urobilinogen Test strip (U) [Mass/Vol]Ordered By: Renny Estrada on 06-13-2024 Urobilinogen (U) [Mass/Vol] Urobilinogen [Mass/volume] in Urine by Test strip Normal [facility] WBC Auto (Bld) [#/Vol]Ordere d By: Renny Estrada on 06-13-2024 WBC (Bld) [#/Vol] Leukocytes [#/volume ] in Blood by Automated count 3.8-11.6 [facility] pH Test strip (U)Ordered By: Renny Estrada on 06-13-2024 pH (U) pH of Urine by Test strip 5.0-9.0 [facility] CBC AND AUTO DIFFon 05-21-20 24 ABSOLUTE BASOPHIL 0.1 X10E9/L Normal 0.0-0.2 [facility] Comment on above: Performed By: #### C FATOU GUTIÉRREZ, 3039-07, #### [facility] ([id number]) [address] [place] [address] 35361 ABSOLUTE NEUTROPHIL 2.7 X10E9/L Normal 1.5-6.6 [facility] Comment on above: Performed By: #### C BROCK [facility], 3039-07, #### [facility] ([id number]) [address] [place] [address] 65748 Basophils/100 WBC (Bld) 1.2 % Normal [facility] Comment on above: Performed By: #### C BROCK [facility], 3039-07, #### [facility] ([id number]) [address] [place] [address] 66632 Eosinophils (Bld) [#/Vol] 0.1 10*3/uL Normal 0.0-0.4 [facility] Comment on above: Performed By: #### Treasure GUTIÉRREZ [facility], 3039-07, #### [facility] ([id number]) [address] [place] [address] 23493 Eosinophils/100 WBC (Bld) 1.7 % Normal [facility] Comment on above: Performed By: #### Treasure GUTIÉRREZ [facility], 3039-07, #### [facility] ([id number]) [address] [place] [address] 59491 Erythrocyte distribution width (RBC) [Ratio] 12.8 % Normal 11.5-15.0 [facility] Comment on above: Performed By: #### C FATOU GUTIÉRREZ, 3039-07, #### [facility] ([id number]) [address] [place] [address] 42754 Hematocrit (Bld) [Volume fraction] 41.1 % Normal 35-47 [facility] Comment on above: Performed By: #### C BROCK, CMP, 3039-07, #### [facility] ([id number]) [address] [place] [address] 30591 Hemoglobin (Bld) [Mass/Vol] 14.3 g/dL Normal 11.7-15.5 [facility] Comment on above: Performed By: #### C BCA, CMP, 3039-07, #### [facility] ([id number]) [address] [place] [address] 12284 Lymphocytes (Bld) [#/Vol] 2.1 10*3/uL Normal 1.0-3.5 [facility] Comment on above: Performed By: #### Treasure GUTIÉRREZ, CMP, 3039-07, #### [facility] ([id number]) [address] [place] [address] 42743 Lymphocytes/100 WBC (Bld) 40.2 % Normal [facility] Comment on above: Performed By: #### C BCA, CMP, 3039-07, #### [facility] ([id number]) [address] [place] [address] 20624 MCH (RBC) [Entitic mass] 33.6 pg Normal 27-34 [facility] Comment on above: Performed By: #### C BCA, CMP, 3039-07, #### [facility] ([id number]) [address] [place] [address] 32885 MCHC (RBC) [Mass/Vol] 34.7 g/dL Normal 32-36 [facility] Comment on above: Performed By: #### C BCA, CMP, 3039-07, #### [facility] ([id number]) [address] [place] [address] 09362 MCV (RBC) [Entitic vol] 97 fL Normal 80-100 [facility] Comment on above: Performed By: #### C BROCK CMP, 3, #### [facility] ([id number]) [address] [place] [address] 61217 Monocytes (Bld) [#/Vol] 0.3 10*3/uL Normal 0-0.9 [facility] Comment on above: Performed By: #### C BROCK, CMP, 3, #### [facility] ([id number]) [address] [place] [address] 79578 Monocytes/100 WBC (Bld) 4.8 % Normal [facility] Comment on above: Performed By: #### Treasure GUTIÉRREZ CMP, 3039-07, #### [facility] ([id number]) [address] [place] [address] 87501 Neutrophils/100 WBC (Bld) 52.1 % Normal [facility] Comment on above: Performed By: #### Treasure GUTIÉRREZ, CMP, 3039-07, #### [facility] ([id number]) [address] [place] [address] 45105 Platelet mean volume (Bld) [Entitic vol] 7.1 fL Normal 7-12 [facility] Comment on above: Performed By: #### Treasure GUTIÉRREZ, CMP, 3039-07, #### [facility] ([id number]) [address] [place] [address] 88560 Platelets (Bld) [#/Vol] 294 10*3/uL Normal 150-450 [facility] Comment on above: Performed By: #### Treasure GUTIÉRREZ, CMP, 3, #### [facility] ([id number]) [address] [place] [address] 27824 RBC COUNT 4.25 X10E12/L Normal 3.80-5.20 [facility] Comment on above: Performed By: #### C BCA, CMP, 0-3, 31448-0 #### [facility] ([id number]) [address] [place] [address] 20180 WBC (Bld) [#/Vol] 5.3 10*3/uL Normal 4.0-11.0 [facility] Comment on above: Performed By: #### C BCA, CMP, 0-3, #### [facility] ([id number]) [address] [place] [address] 46454 COMPREHENSIVE METABOLIC PANE [facility] [place] 05-21-2024 Albumin [Mass/Vol] 4.2 g/dL Normal 3.2-5.3 [facility] Comment on above: Performed By: #### C BCA, CMP, 3, #### [facility] ([id number]) [address] [place] [address] 99276 ALP [Catalytic activity/Vol] 62 U/L Normal 39-130 [facility] Comment on above: Performed By: #### C BCA, CMP, 03, 88944-6 #### [facility] ([id number]) [address] [place] [address] 65157 ALT [Catalytic activity/Vol] 22 U/L Normal 0-31 [facility] Comment on above: Performed By: #### C BCA, CMP, 03, 44160-1 #### [facility] ([id number]) [address] [place] [address] 17417 Anion gap [Moles/Vol] 13 mmol/L Normal 5-15 [facility] Comment on above: Performed By: #### C BCA, CMP, 03, 42560-2 #### [facility] ([id number]) [address] [place] [address] [place] [address] AST [Catalytic activity/Vol] 32 U/L Normal 0-41 [facility] Comment on above: Performed By: #### C BCA, CMP, 3, #### [facility] ([id number]) [address] [place] [address] 14721 Bilirubin [Mass/Vol] 1.1 mg/dL Normal 0.3-1.2 [facility] Comment on above: Performed By: #### C BCA, CMP, 3039-07, #### [facility] ([id number]) [address] [place] [address] 94323 Calcium [Mass/Vol] 8.8 mg/dL Normal 8.5-10.5 [facility] Comment on above: Performed By: #### C BCA, CMP, 3039-07, #### [facility] ([id number]) [address] [place] [address] 74972 Chloride [Moles/Vol] 103 mmol/L Normal 98-109 [facility] Comment on above: Performed By: #### C BCA, CMP, 3039-07, #### [facility] ([id number]) [address] [place] [address] 10373 CO2 [Moles/Vol] 21 mmol/L Low 22-32 [facility] Comment on above: Performed By: #### C BCA, CMP, 3039-07, #### [facility] ([id number]) [address] [place] [address] 35081 Creatinine [Mass/Vol] 0.73 mg/dL Normal 0.40-1.00 [facility] Comment on above: Result Comment: METH OD TRACEABLE TO IDMS STANDARD Performed By: #### C BCA, CMP, 3039-07, #### [facility] ([id number]) [address] [place] [address] 45911 eGFR (CKD-EPI) NON-RACE DEPENDENT >90 Normal >59 [facility] Comment on above: Result Comment: Reported eGFR is based on the CKD-EPI 2020 equation that does not use a race coefficient. Performed By: #### C FATOU GUTIÉRREZ, 0-3, #### [facility] ([id number]) [address] [place] [address] 34810 Glucose [Mass/Vol] 96 mg/dL Normal 65-99 [facility] Comment on above: Performed By: #### C FATOU GUTIÉRREZ, 3039-07, #### [facility] ([id number]) [address] [place] [address] 71474 Potassium [Moles/Vol] 3.9 mmol/L Normal 3.5-5.0 [facility] Comment on above: Performed By: #### C BROCK CMP, 3039-07, #### [facility] ([id number]) [address] [place] [address] 53335 Protein [Mass/Vol] 7.7 g/dL Normal 6.0-8.0 [facility] Comment on above: Performed By: #### C BROCK CMP, 3039-07, 46910-1 #### [facility] ([id number]) [address] [place] [address] 87896 Sodium [Moles/Vol] 137 mmol/L Normal 134-146 [facility] Comment on above: Performed By: #### C BROCK, CMP, 3039-07, #### [facility] ([id number]) [address] [place] [address] 18807 Urea nitrogen [Mass/Vol] 12 mg/dL Normal 5-23 [facility] Comment on above: Performed By: #### C BROCK CMP, 3039-07, #### [facility] ([id number]) [address] [place] [address] HCG ( test) Ql (U)o n 05-21-2024 Beta HCG ( test) Ql (U) Negative Normal NEG [facility] Comment on above: Performed By: #### C BCA, CMP, 3040-3, 70669-5 #### [facility] ([id number]) [address] [place] [address] MAGNESIUMon 05-21-2024 Magnesium [Mass/Vol] 2.1 mg/dL Normal 1.8-2.6 [facility] Comment on above: Performed By: #### C BCA, CMP, 3040-3, 66737-7 #### [facility] ([id number]) [address] [place] [address] 78372 AHMET FECAL OCCULT BLDon 05-21 Hemoglobin.gastrointe stinal Ql (Stl) Negative Normal NEG [facility] Comment on above: Performed By: #### C BCA, CMP, 3040-3, 44478-7 #### [facility] ([id number]) [address] [place] [address] 55165 SARS/FLU A+B/RSV by NAAT/Mol ecularon 05-21-2024 SARS/FLU A+B/RSV by NAAT/Molecular FLU A PCR Negative (qualifier value) FLU B PCR Negative (qualifier value) RSV by PCR Negative (qualifier value) SARS CoV 2 Not detected (qualifier value) NOTE The Xpert Xpress SARS-CoV-2/Flu/RSV Plus test is a rapid, multiplexed real-time RT-PCR test intended for the simultaneous qualitative detection and differentiation of SARS-CoV-2, influenza A, influenza B and respiratory syncytial virus (RSV) viral RNA from individuals suspected of respiratory viral infection consistent with COVID-19 by their healthcare provider. This test has not been validated in asymptomatic patients. The Xpert Xpress SARS-CoV-2 test is intended for use by qualified and trained operators who are performing tests using either BiBCOM or Zero Locus systems and is limited to laboratories that meet the CLIA requirements to perform high and moderate complexity tests. The Xpert Xpress SARS-CoV-2/Flu/RSV Plus is only for use under the Food and Drug Administration's Emergency Use Authorization. Results are for the simultaneous detection and differentiation of SARS-CoV-2, influenza A, influenza B and RSV nucleic acids in clinical specimens. SARS-CoV-2, influenza A, influenza B and RSV RNA identified by this test are generally detectable in upper respiratory samples during the acute phase of infection. Positive results are indicative of the presence of the identified virus, but do not rule out bacterial infection or co-infection with other pathogens not detected by this test. Clinical correlation with patient history and other diagnostic information is necessary to determine patient infection status. The agent detected may not be the definite cause of disease. Negative results do not preclude SARS-CoV-2, influenza A, influenza B and RSV infection and should not be used as the sole basis for treatment or other patient management decisions. Negative results must be combined with clinical observations, patient history and epidemiological information. An Invalid result may occur with specimen-associated inhibition unable to be resolved with specimen repeat. Fact Sheet for Healthcare Providers: https://www.fda.gov/media/ 871136/download Fact Sheet for Patients: https://www.fda.gov/media/ 950417/download Normal [facility] Comment on above: Performed By: #### C FATUO GUTIÉRREZ, 9 #### [facility] ([id number]) [address] [place] [address] 04908 Troponin I.cardiac High sens itivity method [Mass/Vol]on 05-21-2024 1 HOUR TROP I, HIGH SENSITIVITY <2 Normal <16 [facility] Comment on above: Performed By: #### C FATOU GUTIÉRREZ, 9 #### [facility] ([id number]) [address] [place] [address] 03664 TROPONIN I, HIGH SENSITIVITY <2 Normal <16 [facility] Comment on above: Performed By: #### C FATOU GUTIÉRREZ, #### [facility] ([id number]) [address] [place] [address] [place] [address] URN MACROSCOPIC NURon 2023 BILIRUBIN AHMET Negative Normal NEG [facility] Comment on above: Performed By: #### C BCA, CMP, 3, #### [facility] ([id number]) [address] [place] [address] [place] [address] BLOOD/HGB AHMET Negative Normal NEG [facility] Comment on above: Performed By: #### C BCA, CMP, 3039-07, #### [facility] ([id number]) [address] [place] [address] 52896 GLUCOSE AHMET Negative Normal NEG [facility] Comment on above: Performed By: #### C BCA, CMP, 3039-07, #### [facility] ([id number]) [address] [place] [address] [place] [address] KETONES AHMET Negative Normal NEG [facility] Comment on above: Performed By: #### C BCA, CMP, 3039-07, #### [facility] [facility] ([id number]) [address] [place] [address] [place] [address] LEUKOCYTE ESTERASE AHMET Negative Normal NEG [facility] Comment on above: Performed By: #### C BCA, CMP, 3039-07, #### [facility] ([id number]) [address] [place] [address] [place] [address] NITRITE AHMET Negative Normal NEG [facility] Comment on above: Performed By: #### C BCA, CMP, 3039-07, #### [facility] ([id number]) [address] [place] [address] [place] [address] PH AHMET 5.5 Normal 5.0-8.5 [facility] Comment on above: Performed By: #### C BCA, CMP, 3039-07, #### [facility] ([id number]) [address] [place] [address] PROTEIN AHMET Negative Normal NEG [facility] Comment on above: Performed By: #### C BCA, CMP, 0-3, 92458-9 #### [facility] ([id number]) [address] [place] [address] SPECIFIC GRAVITY AHMET >=1.030 Normal 1.003-1 .03 5 [facility] Comment on above: Performed By: #### C BCA, CMP, 0-3, 71267-5 #### [facility] ([id number]) [address] [place] [address] UROBILINOGEN AHMET 0.2 eu/dL Normal <1.1 [facility] Comment on above: Performed By: #### C BCA, CMP, 3039-07, #### [facility] ([id number]) [address] [place] [address] XR CHEST 2 VWSon 05-21-2024 XR CHEST 2 VWS XR CHEST 2 VWS XR CHEST 2 VWS IMPRESSION: Clinical Information: cough Comparison: None. * Negative chest x-ray. Finalized by Mike Elkins MD on 05/21/2024 9:55 PM Normal [facility] NM gastric emptying studyon 03-22-2024 NM gastric emptying study [facility] [place] [address] Nuclear Medicine Report Signed Patient: Yane Wallace MR#: [id number] 85 : 1995 Acct:[id number] Age/Sex: 28 / F ADM Date: 03/22/24 Loc: NM Room: Type: [facility] Attending Dr: Kenrick Gill MD Copies to: MD Jarett Ramos Jr, DO Ordering Provider: Kenrick Gill MD Date of Service: 03/22/24 NM/NM gastric emptying study: K31.89 - Other diseases of stomach and duodenum GASTRIC EMPTYING STUDY: CLINICAL HISTORY: Gastroparesis bloating and nausea constipation for 2 years TECHNIQUE: Following the oral ingestion of 1.0 mCi Tc 99m labeled sulfur colloid mixed with egg, planar imaging of the abdomen was obtained. FINDINGS: At 30 minutes, 62% of the radiotracer remained within the stomach. At 1 hour, 43% of the radiotracer remained within the stomach. At 2 hours, 10% of the radiotracer remained within the stomach. NM/NM gastric emptying study IMPRESSION: No scintigraphic evidence of gastroparesis. Impression dictated by: Jarett Roach Jr., D.O.03/22/2024 10:04 AM Dictation Location: [place] [address] Transcribed By: SUSY 03/22/24 1004 Dictated By: Jarett Roach Jr, DO 03/22/24 0942 Signed By: 03/22/24 1004 Normal [facility] Alanine aminotransferase [En zymatic activity/volume] in Serum or PlasmaOrdered By: Sai Miller on 03-07-2024 ALT [Catalytic activity/Vol] 46 U/L Normal 7-52 [facility] Comment on above: Performed By: #### B MP, LIPASE, HEPATIC, CBC #### [facility] [address] [place] [address] [place] Albumin [Mass/volume] in Ser um or Plasma by Bromocresol green (BCG) dye binding methoOrdered By: Sai Miller on 03-07-2024 Albumin BCG dye [Mass/Vol] 4.4 g/dL 3.5-5.7 [facility] Alkaline phosphatase [Enzyma tic activity/volume] in Serum or PlasmaOrdered By: Sai Miller on 03-07-2024 ALP [Catalytic activity/Vol] 47 U/L Normal 34-104 [facility] Comment on above: Performed By: #### B MP, LIPASE, HEPATIC, CBC #### [facility] [address] [place] [id number] [place] Aspartate aminotransferase [ Enzymatic activity/volume] in Serum or PlasmaOrdered By: Sai Miller on 03-07-2024 AST [Catalytic activity/Vol] 79 U/L High 13-39 [facility] Comment on above: Performed By: #### B MP, LIPASE, HEPATIC, CBC #### [address] Automated basophil %Ordered By: Sai Miller on 03-07-2024 Basophils/100 WBC (Bld) 1.1 % Normal . [facility] Comment on above: Performed By: #### B MP, LIPASE, HEPATIC, CBC #### [address] Automated basophil countOrde red By: Sai Miller on 03-07-2024 Basophils (Bld) [#/Vol] 0.1 10*3/uL Normal 0.0-0.2 [facility] Comment on above: Result Comment: PERF ORMED BY: [place] [address] PATHOLOGIST ACOUSTICAL TILE DRILL PRESS OPERATOR SANDIE MAYES M.D. Performed By: #### B MP, LIPASE, HEPATIC, CBC #### [address] Automated blood monocyte cou ntOrdered By: Sai Miller on 03-07-2024 Monocytes (Bld) [#/Vol] 0.2 10*3/uL Normal 0.0-0.8 [facility] Comment on above: Performed By: #### B MP, LIPASE, HEPATIC, CBC #### [address] Automated eosinophil %Ordere d By: Sai Miller on 03-07-2024 Eosinophils/100 WBC (Bld) 1.3 % Normal . [facility] Comment on above: Performed By: #### B MP, LIPASE, HEPATIC, CBC #### [address] Automated eosinophil countOr dered By: Sai Miller on 03-07-2024 Eosinophils (Bld) [#/Vol] 0.1 10*3/uL Normal 0.0-0.45 [facility] Comment on above: Performed By: #### B MP, LIPASE, HEPATIC, CBC #### [place] [address] [place] Automated monocyte %Ordered By: Sai Miller on 03-07-2024 Monocytes/100 WBC (Bld) 4.5 % Normal . [facility] Comment on above: Performed By: #### B MP, LIPASE, HEPATIC, CBC #### [facility] [address] Automated neutrophil %Ordere d By: Sai Miller on 03-07-2024 Neutrophils/100 WBC (Bld) 58.5 % Normal . [facility] Comment on above: Performed By: #### B MP, LIPASE, HEPATIC, CBC #### [facility] [address] Basic Metabolic Panelon 02-20 Creatinine Clr Calc Pharmacy 108.67 Normal [facility] Comment on above: Performed By: #### B MP, LIPASE, HEPATIC, CBC #### [facility] [address] GFR/1.73 sq M.predicted MDRD (S/P/Bld) [Vol rate/Area] mL/min/{1.73_m2} Normal [facility] Comment on above: Performed By: #### B MP, LIPASE, HEPATIC, CBC #### [facility] [address] Bilirubin Test strip Ql (U)O rdered By: Rabia Murrieta on 03-07-2024 Bilirubin Ql (U) Negative Negative [facility] Bilirubin.direct [Mass/volum e] in Serum or PlasmaOrdered By: Sai Miller on 03-07-2024 Bilirubin.direct [Mass/Vol] 0.10 mg/dL 0.03-0.18 [facility] Bilirubin.total [Mass/volume ] in Serum or PlasmaOrdered By: Sai Miller on 03-07-2024 Bilirubin [Mass/Vol] 0.5 mg/dL Normal 0.3-1.0 [facility] Comment on above: Performed By: #### B MP, LIPASE, HEPATIC, CBC #### [facility] [address] abdomen pelvis w conon CT abdomen pelvis w con [facility] Main [address] [place] [address] CT Scan Report Signed Patient: Yane Wallace MR#: [id number] 85 : 1995 Acct:[id number] Age/Sex: 28 / F ADM Date: 03/07/24 Loc: ER Room: [facility] ER Attending Dr: Copies to: [place] De Luna DO Ordering Provider: Sai Miller PA-C Date of Service: 03/07/24 CT/CT abdomen pelvis w con: abd pain CT abdomen pelvis w con 03/07/2024 1:43 PM SIGNS AND SYMPTOMS: Abdominal pain, flank pain, vomiting TECHNIQUE: Multidetector ct axial images of the abdomen and pelvis were obtained with IV contrast. Multiplanar reformats were performed and reviewed to further define anatomy and possible pathology. CT was performed with one or more of the following dose reduction techniques: Automated exposure control, adjustment of the mA and/or kV according to patient size, or use of iterative reconstruction technique. COMPARISON: 05/28/2023 FINDINGS: Lower Chest: Within normal limits. ABDOMEN: Liver: The liver is hypoattenuating suggesting hepatic steatosis. Bile Ducts: Normal caliber. Gallbladder: No calcified gallstones. Normal caliber wall. Pancreas: Within normal limits. Spleen: Within normal limits. Adrenals: Within normal limits. Kidneys: Within normal limits. Pelvis: Reproductive Organs: No pelvic masses. Ureters: Within normal limits. Bladder: Within normal limits. Bowel: Normal caliber. There is evidence of prior appendectomy. There is hypoattenuation and wall thickening throughout the colon suspicious for a chronic colitis. Mesenteric Lymph Nodes: No enlarged mesenteric lymph nodes. Peritoneum: There is a small amount of free fluid in the pelvis which may be physiologic. Vessels: within normal limits Retroperitoneum: Within normal limits. Abdominal Wall: Within normal limits. Bones: Mild degenerative changes are noted in the lower lumbar spine. CT/CT abdomen pelvis w con IMPRESSION: No bowel obstruction or obstructive uropathy. Findings suggest hepatic steatosis. There is hypoattenuation and wall thickening throughout the colon suspicious for a chronic colitis. Impression dictated by: Jeff Martines M.D.03/07/2024 1:56 PM Dictation Location: [place] [address] Transcribed By: SUSY 03/07/24 1356 Dictated By: Jeff Martines II, MD 03/07/24 1351 Signed By: 03/07/24 1356 Normal [facility] Calcium [Mass/volume] in Ser um or PlasmaOrdered By: Sai Miller on 03-07-2024 Calcium [Mass/Vol] 8.8 mg/dL Normal 8.6-10.3 [facility] Comment on above: Performed By: #### B MP, LIPASE, HEPATIC, CBC #### [address] Carbon dioxide, total [Moles /volume] in Serum or PlasmaOrdered By: Sai Miller on 03-07-2024 CO2 [Moles/Vol] 26.5 mmol/L Normal 21.0-31.0 [facility] Comment on above: Performed By: #### B MP, LIPASE, HEPATIC, CBC #### [place] [address] [place] Chloride [Moles/volume] in S isidro or PlasmaOrdered By: Sai Miller on 03-07-2024 Chloride [Moles/Vol] 107 mmol/L Normal 98-107 [facility] Comment on above: Performed By: #### B MP, LIPASE, HEPATIC, CBC #### [facility] [address] [place] [address] Color of Urine by AutoOrdere d By: Rabia Murrieta on 03-07-2024 Color (U) Colorless Normal Yellow [facility] Comment on above: Order Comment: Name Collection Type:: Clean-Voided Midstream Performed By: #### C ALPROTECT, FF QUAL #### [facility] , Complete Blood Count Auto Di ffon 03-07-2024 Mean Corpuscular HGB Conc 33.9 g/dL Normal 32.0-35.0 [facility] Comment on above: Performed By: #### B MP, LIPASE, HEPATIC, CBC #### [facility] [address] [place] [address] [place] Monocytes/100 WBC (Bld) 16.15 % Normal 0.00-20.00 [facility] Comment on above: Performed By: #### B MP, LIPASE, HEPATIC, CBC #### [facility] [address] NRBC% 0.1 /100{WBC} Normal 0-0.5 [facility] Comment on above: Performed By: #### B MP, LIPASE, HEPATIC, CBC #### [facility] [address] [place] [address] Creatinine [Mass/volume] in Serum or PlasmaOrdered By: Sai Miller on 03-07-2024 Creatinine [Mass/Vol] 0.67 mg/dL Normal 0.60-1.20 [facility] Comment on above: Performed By: #### B MP, LIPASE, HEPATIC, CBC #### [facility] [address] [place] [address] ECG 12 lead ECGon 03-07-2024 ECG 12 lead ECG [facility] Main [address] [place] [address] Electrocardiograph Report Signed Patient: Yane Wallace MR#: [id number] 85 : 1995 Acct:[id number] Age/Sex: 28 / F ADM Date: 03/07/24 Loc: ER Room: Type: [facility] ER Attending Dr: Ordering Provider: Rabia Murrieta DO Date of Service: 03/07/24 ECG/ECG 12 lead ECG: Abdominal Pain Copies to: Test Reason : Blood Pressure : 118/71 mmHG Vent. Rate : 73 BPM Atrial Rate : 73 BPM P-R Int : 134 ms QRS Dur : 90 ms QT Int : 426 ms P-R-T Axes : 38 83 57 degrees QTcB Int : 469 ms Normal sinus rhythm Normal ECG When compared with ECG of 27-Jul-2023 16:32, No significant change was found Confirmed by RABIA MURRIETA DO ([id number]) on 03/07/2024 4:09:12 PM Referred By: Electronically Signed By: RABIA MURRIETA DO Transcribed By: MUS Signed By Rabia Murrieta DO 03/07 1609 Normal [facility] Erythrocyte distribution wid th [Ratio] by Automated countOrdered By: Sai Miller on 03-07-2024 Erythrocyte distribution width (RBC) [Ratio] 12.6 % Normal 11.9-15.3 [facility] Comment on above: Performed By: #### B MP, LIPASE, HEPATIC, CBC #### [facility] [address] Erythrocytes [#/volume] in B lood by Automated countOrdered By: Sai Miller on 03-07-2024 RBC (Bld) [#/Vol] 4.23 10*6/uL Normal 3.60-5.00 [facility] Comment on above: Performed By: #### B MP, LIPASE, HEPATIC, CBC #### [facility] [address] Glucose [Mass/volume] in Ser um or PlasmaOrdered By: Sai Miller on 03-07-2024 Glucose [Mass/Vol] 92 mg/dL Normal 70-100 [facility] Comment on above: ADA recommended refe rence rangeRandom Glucose Reference Range is dependent on time and content of last meal. Glucose of more than 200 mg/dL in a nonstressed, ambulatory subject supports the diagnosis of Diabetes Mellitus. Result Comment: [place] om Glucose Reference Range is dependent on time and content of last meal. Glucose of more than 200 mg/dL in a nonstressed, ambulatory subject supports the diagnosis of Diabetes Mellitus. ADA recommended reference range Performed By: #### B MP, LIPASE, HEPATIC, CBC #### [facility] [address] [place] [address] [place] Glucose [Mass/volume] in Uri ne by Test stripOrdered By: Rabia Murrieta on 03-07-2024 Glucose Test strip (U) [Mass/Vol] Normal mg/dL Normal [facility] HCG ( test) IA.rapi d Ql (U)Ordered By: Rabia Murrieta on 03-07-2024 HCG ( test) Ql (U) Negative [facility] HCG,Urineon 03-07-2024 Beta HCG ( test) Ql (U) Negative Normal [facility] Comment on above: Order Comment: Name Collection Type:: Clean-Voided Midstream Result Comment: PERF ORMED BY: [place] [address] PATHOLOGIST ACOUSTICAL TILE DRILL PRESS OPERATOR SANDIE MAYES M.D. Performed By: #### C ALPROTECT, FF QUAL #### [facility] , Hematocrit [Volume Fraction] of Blood by Automated countOrdered By: Sai Miller on 03-07-2024 Hematocrit (Bld) [Volume fraction] 42.6 % Normal 34.0-46.4 [facility] Comment on above: Performed By: #### B MP, LIPASE, HEPATIC, CBC #### [address] Hemoglobin Test strip Ql (U) Ordered By: Rabia Murrieta on 03-07-2024 Hemoglobin Ql (U) Negative Negative [facility] Hemoglobin [Mass/volume] in BloodOrdered By: Sai Miller on 03-07-2024 Hemoglobin (Bld) [Mass/Vol] 14.4 g/dL Normal 11.8-15.4 [facility] Comment on above: Performed By: #### B MP, LIPASE, HEPATIC, CBC #### [address] Hepatic Panelon 03-07-2024 Albumin [Mass/Vol] 4.4 g/dL Normal 3.5-5.7 [facility] Comment on above: Performed By: #### B MP, LIPASE, HEPATIC, CBC #### [address] Bilirubin,Indirect 0.4 mg/dL Normal [facility] Comment on above: Performed By: #### B MP, LIPASE, HEPATIC, CBC #### [address] Bilirubin.indirect [Mass/Vol] 0.10 mg/dL Normal 0.03-0.18 [facility] Comment on above: Performed By: #### B MP, LIPASE, HEPATIC, CBC #### [address] Ketones [Presence] in Urine by Test stripOrdered By: Rabia Murrieta on 03-07-2024 Ketones Ql (U) Negative Normal Negative [facility] Comment on above: Order Comment: Name Collection Type:: Clean-Voided Midstream Performed By: #### C ALPROTECT, FF QUAL #### [facility] , Leukocyte esterase [Presence ] in Urine by Test stripOrdered By: Rabia Murrieta on 03-07-2024 Leukocyte esterase Test strip Ql (U) Negative Normal Negative [facility] Comment on above: Order Comment: Name Collection Type:: Clean-Voided Midstream Performed By: #### C ALPROTECT, FF QUAL #### [facility] , Leukocytes [#/volume] correc james for nucleated erythrocytes in Blood by Automated counOrdered By: Sai Miller on 03-07-2024 WBC corrected for nucl RBC Auto (Bld) [#/Vol] 5.0 10*3/uL 3.8-11.6 [facility] Leukocytes [#/volume] in Blo od by Automated countOrdered By: Sai Miller on 03-07-2024 WBC (Bld) [#/Vol] 5.0 10*3/uL Normal 3.8-11.6 [facility] Comment on above: Performed By: #### B MP, LIPASE, HEPATIC, CBC #### [facility] [address] Lipase [Enzymatic activity/v olume] in Serum or PlasmaOrdered By: Sai Miller on 03-07-2024 Lipase [Catalytic activity/Vol] 41.0 U/L Normal 11.0-82.0 [facility] Comment on above: Result Comment: PERF ORMED BY: [facility] [address] [place] [address] PATHOLOGIST ACOUSTICAL TILE DRILL PRESS OPERATOR SANDIE MAYES M.D. Performed By: #### B MP, LIPASE, HEPATIC, CBC #### [facility] [address] [place] [address] [place] Lymphocytes [#/volume] in Bl ood by Automated countOrdered By: Sai Miller on 03-07-2024 Lymphocytes (Bld) [#/Vol] 1.7 10*3/uL Normal 1.00-4.8 [facility] Comment on above: Performed By: #### B MP, LIPASE, HEPATIC, CBC #### [address] Lymphocytes/100 leukocytes i n Blood by Automated countOrdered By: Sai Miller on 03-07-2024 Lymphocytes/100 WBC (Bld) 34.6 % Normal . [facility] Comment on above: Performed By: #### B MP, LIPASE, HEPATIC, CBC #### [address] MCH [Entitic mass] by Automa james countOrdered By: Sai Miller on 03-07-2024 MCH (RBC) [Entitic mass] 34.1 pg Normal 24.7-34.3 [facility] Comment on above: Performed By: #### B MP, LIPASE, HEPATIC, CBC #### [address] MCHC Auto (RBC) [Mass/Vol]Or dered By: Sai Miller on 03-07-2024 MCHC (RBC) [Mass/Vol] 33.9 g/dL 32.0-35.0 [facility] MCV [Entitic volume] by Auto mated countOrdered By: Sai Miller on 03-07-2024 MCV (RBC) [Entitic vol] 100.6 fL High 80-100 [facility] Comment on above: Performed By: #### B MP, LIPASE, HEPATIC, CBC #### [address] Magnesium [Mass/volume] in S isidro or PlasmaOrdered By: Rabia Murrieta on 03-07-2024 Magnesium [Mass/Vol] 1.9 mg/dL Normal 1.9-2.7 [facility] Comment on above: Result Comment: PERF ORMED BY: [place] [address] PATHOLOGIST ACOUSTICAL TILE DRILL PRESS OPERATOR SANDIE MAYES M.D. Performed By: #### M G #### [address] Monocyte distribution width [Entitic volume] in Blood by AutomatedOrdered By: Sai Miller on 03-07-2024 Monocyte distribution width Auto (Bld) [Entitic vol] 16.15 % 0.00-20.00 [facility] Neutrophils [#/volume] in Bl ood by Automated countOrdered By: Sai Miller on 03-07-2024 Neutrophils (Bld) [#/Vol] 2.9 10*3/uL Normal 1.8-7.7 [facility] Comment on above: Performed By: #### B MP, LIPASE, HEPATIC, CBC #### [facility] [address] Nitrite Test strip Ql (U)Ord ered By: Rabia Murrieta on 03-07-2024 Nitrite Ql (U) Negative Negative [facility] No Panel InformationOrdered By: Sai Miller on 03-07-2024 Estimated GFR (CKD-EPI) > 60.0 mL/Min [facility] Creatinine Clearance (Chem 108.67 [facility] Nucleated erythrocytes [Pres ence] in Blood by Automated countOrdered By: Sai Miller on 03-07-2024 Nucleated RBC Auto Ql (Bld) 0.1 /100{WBC} 0-0.5 [facility] Platelet mean volume [Entiti c volume] in Blood by Automated countOrdered By: Sai Miller on 03-07-2024 Platelet mean volume (Bld) [Entitic vol] 7.4 fL Normal 6.3-10.7 [facility] Comment on above: Performed By: #### B MP, LIPASE, HEPATIC, CBC #### [facility] [address] [place] [address] [place] Platelets [#/volume] in Bloo d by Automated countOrdered By: Sai Miller on 03-07-2024 Platelets (Bld) [#/Vol] 246 10*3/uL Normal 150-450 [facility] Comment on above: Performed By: #### B MP, LIPASE, HEPATIC, CBC #### [facility] [address] [place] [address] [place] Potassium [Moles/volume] in Serum or PlasmaOrdered By: Sai Miller on 03-07-2024 Potassium [Moles/Vol] 3.4 mmol/L Low 3.5-5.1 [facility] Comment on above: Performed By: #### B MP, LIPASE, HEPATIC, CBC #### [address] Protein Test strip (U) [Mass /Vol]Ordered By: Rabia Murrieta on 03-07-2024 Protein (U) [Mass/Vol] Negative Negative [facility] Protein [Mass/volume] in Ser um or PlasmaOrdered By: Sai Miller on 03-07-2024 Protein [Mass/Vol] 7.4 g/dL Normal 6.4-8.9 [facility] Comment on above: Performed By: #### B MP, LIPASE, HEPATIC, CBC #### [address] Serum globulin measurement b y calculation (mass/volume)Ordered By: Sai Miller on 03-07-2024 Globulin (S) [Mass/Vol] 3.0 g/dL [facility] Comment on above: Performed By: #### B MP, LIPASE, HEPATIC, CBC #### [facility] [address] [place] [address] Serum or plasma albumin/glob ulin mass ratioOrdered By: Sai Miller on 03-07-2024 Albumin/Globulin [Mass ratio] 1.5 {ratio} [facility] Comment on above: Performed By: #### B MP, LIPASE, HEPATIC, CBC #### [facility] [address] [place] [address] Serum or plasma anion gap de terminationOrdered By: Sai Miller on 03-07-2024 Anion gap [Moles/Vol] 11.9 mmol/L Normal 6.0-15.[address] [facility] Comment on above: Performed By: #### B MP, LIPASE, HEPATIC, CBC #### [address] Serum or plasma non-glucuron idated bilirubin measurement (mass/volume)Ordered By: Sai Miller on 03-07-2024 Bilirubin.indirect [Mass/Vol] 0.4 mg/dL [facility] Sodium [Moles/volume] in Ser um or PlasmaOrdered By: Sai Miller on 03-07-2024 Sodium [Moles/Vol] 142 mmol/L Normal 136-145 [facility] Comment on above: Performed By: #### B MP, LIPASE, HEPATIC, CBC #### [facility] [address] Specific gravity Test strip (U) [Rel density]Ordered By: Rabia Murrieta on 03-07-2024 Specific gravity (U) [Rel density] 1.004 1.001-1.[address] [facility] Urea nitrogen [Mass/volume] in Serum or PlasmaOrdered By: Sai Miller on 03-07-2024 Urea nitrogen [Mass/Vol] 6 mg/dL Low 7-25 [facility] Comment on above: Performed By: #### B MP, LIPASE, HEPATIC, CBC #### [facility] [address] Urinalysison 03-07-2024 Bilirubin,Urine Negative Normal Negative [facility] Comment on above: Order Comment: Name Collection Type:: Clean-Voided Midstream Performed By: #### C ALPROTECT, FF QUAL #### [facility] , Glucose Ql (U) Normal Normal Normal [facility] Comment on above: Order Comment: Name Collection Type:: Clean-Voided Midstream Performed By: #### C ALPROTECT, FF QUAL #### [facility] , Nitrite,Urine Negative Normal Negative [facility] Comment on above: Order Comment: Name Collection Type:: Clean-Voided Midstream Performed By: #### C ALPROTECT, FF QUAL #### [facility] , Occult Blood,Urine Negative Normal Negative [facility] Comment on above: Order Comment: Name Collection Type:: Clean-Voided Midstream Performed By: #### C ALPROTECT, FF QUAL #### [facility] , Protein,Urine Negative Normal Negative [facility] Comment on above: Order Comment: Name Collection Type:: Clean-Voided Midstream Performed By: #### C ALPROTECT, FF QUAL #### [facility] , Specificy [place],Urine 1.004 Normal 1.001-1.03 0 [facility] Comment on above: Order Comment: Name Collection Type:: Clean-Voided Midstream Performed By: #### C ALPROTECT, FF QUAL #### [facility] , Urobilinogen,Urine Normal Normal Normal [facility] Comment on above: Order Comment: Name Collection Type:: Clean-Voided Midstream Performed By: #### C ALPROTECT, FF QUAL #### [facility] , Urine appearanceOrdered By: Rabia Murrieta on 03-07-2024 Appearance (U) Clear Normal Clear [facility] Comment on above: Order Comment: Name Collection Type:: Clean-Voided Midstream Performed By: #### C ALPROTECT, FF QUAL #### [facility] , Urobilinogen Test strip (U) [Mass/Vol]Ordered By: Rabia Murrieta on 03-07-2024 Urobilinogen (U) [Mass/Vol] Normal mg/dL Normal [facility] pH of Urine by Test stripOrd ered By: Rabia Murrieta on 03-07-2024 pH (U) 6.0 [pH] Normal 5.0-9.0 [facility] Comment on above: Order Comment: Name Collection Type:: Clean-Voided Midstream Performed By: #### C ALPROTECT, FF QUAL #### [facility] , Registrationon 10-28-2023 Registration [id number] Normal [facility] Amphetamine Screen Ql (U)Ord ered By: Kenrick Gill on 08-31-2023 Amphetamines Ql (U) Negative Negative [facility] Barbiturates [Presence] in U rine by Screen methodOrdered By: Kenrick Gill on 08-31-2023 Barbiturates Screen Ql (U) Negative Negative [facility] Benzodiazepines Screen Ql (U )Ordered By: Kenrick Gill on 08-31-2023 Benzodiazepines Ql (U) Negative Negative [facility] Benzoylecgonine [Presence] i n Urine by Screen methodOrdered By: Kenrick Gill on 08-31-2023 Benzoylecgonine Screen Ql (U) Negative Negative [facility] Cannabinoids [Presence] in U rine by Screen methodOrdered By: Kenrick Gill on 08-31-2023 Cannabinoids Screen Ql (U) Positive Negative [facility] Comment on above: These are unconfirme d results and should not be used for legal purposes. Drug Cut-Off Concentration: AMPH 1000 ng/mL HALIMA 200 ng/mL JOSUÉ 200 ng/mL COCM 300 ng/mL OP 300 ng/mL PCP 25 ng/mL THC 20 ng/mL HCG ( test) IA.rapi d Ql (U)Ordered By: Kenrick Gill on 08-31-2023 HCG ( test) Ql (U) Negative [facility] Opiates [Presence] in Urine by Screen methodOrdered By: Kenrick Gill on 08-31-2023 Opiates Screen Ql (U) Negative Negative [facility] Phencyclidine Screen Ql (U)O rdered By: Kenrick Gill on 08-31-2023 Phencyclidine Ql (U) Negative Negative [facility] Basophils Auto (Bld) [#/Vol] Ordered By: Kori Feng on 07-29-2023 Basophils (Bld) [#/Vol] 0.0 10*3/uL 0.0-0.2 [facility] Basophils/100 WBC Auto (Bld) Ordered By: Kori Feng on 07-29-2023 Basophils/100 WBC (Bld) 0.5 % . [facility] Calcium [Mass/volume] in Ser um or PlasmaOrdered By: Kori Feng on 07-29-2023 Calcium [Mass/Vol] 8.3 mg/dL 8.6-10.3 [facility] Carbon dioxide, total [Moles /volume] in Serum or PlasmaOrdered By: Kori Feng on 07-29-2023 CO2 [Moles/Vol] 26.0 mmol/L 21.0-31.0 [facility] Chloride [Moles/volume] in S isidro or PlasmaOrdered By: Kori Feng on 07-29-2023 Chloride [Moles/Vol] 106 mmol/L 98-107 [facility] Creatinine [Mass/volume] in Serum or PlasmaOrdered By: Kori Feng on 07-29-2023 Creatinine [Mass/Vol] 0.53 mg/dL 0.60-1.20 [facility] Eosinophils Auto (Bld) [#/Vo l]Ordered By: Kori Feng on 07-29-2023 Eosinophils (Bld) [#/Vol] 0.1 10*3/uL 0.0-0.45 [facility] Eosinophils/100 WBC Auto (Bl d)Ordered By: Kori Feng on 07-29-2023 Eosinophils/100 WBC (Bld) 2.1 % . [facility] Erythrocyte distribution wid th Auto (RBC) [Ratio]Ordered By: Kori Feng on 07-29-2023 Erythrocyte distribution width (RBC) [Ratio] 13.5 % 11.9-15.3 [facility] Folate [Mass/volume] in Seru m or PlasmaOrdered By: Cedric Biggs on 07-29-2023 Folate [Mass/Vol] 11.6 ng/mL >5.9 [facility] Comment on above: Folate reference ran ge: >5.9 ng/mlThe WHO technical consultation on folate and vitamin [id number] has determined that folate concentrations lessthan 4 ng/ml are considered deficient. Glucose [Mass/volume] in Ser um or PlasmaOrdered By: Kori Feng on 07-29-2023 Glucose [Mass/Vol] 90 mg/dL 70-100 [facility] Comment on above: ADA recommended refe rence rangeRandom Glucose Reference Range is dependent on time and content of last meal. Glucose of more than 200 mg/dL in a nonstressed, ambulatory subject supports the diagnosis of Diabetes Mellitus. Hematocrit Auto (Bld) [Volum e fraction]Ordered By: Kori Feng on 07-29-2023 Hematocrit (Bld) [Volume fraction] 36.1 % 34.0-46.4 [facility] Hemoglobin [Mass/volume] in BloodOrdered By: Kori Feng on 07-29-2023 Hemoglobin (Bld) [Mass/Vol] 12.3 g/dL 11.8-15.4 [facility] Human leukocyte antigen (HLA ) DQ2 detectionOrdered By: Trung Dalal on 07-29-2023 HLA-DQ2 Ql (Bld/Tiss) Negative . [facility] Human leukocyte antigen (HLA ) DQ8 detectionOrdered By: Trung Dalal on 07-29-2023 HLA-DQ8 Ql (Bld/Tiss) Negative . [facility] Comment on above: Final Results:DQB1*0 3:EEMIREYAC,05:EEMYBDQA1*01:EEKIMBERLEE,05:EENPVCode Translation:JAMA 05:05/27:04/26:07/10:09/10:16/10:19/10::3205:44/05:45/05:103/05:104/05:107 /05:133/05:137/05:139/05:144/05:148/05:150 /05:152/05:155/05:158/05:159/05:160/05:162 /05:163/05:164/05:167/05:169/05:171/05:173 /05:176/05:177/05:183/05:184/05:185N /05:188/05:190/05:193/05:194/05:195/05:197 /05:216/05:217/05:219/05:223/05:225/05:226 /05:228/05:230/05:232/05:234/05:237/05:246 /05:248/05:249/05:252/05:256/05:263/05:267 /05:268/05:270/05:271/05:272/05:275/05:277 /05:279/05:283N/05:286/05:288/05:290 /05:291/05:295N/05:297/05:298/05:299/05:300EENPV 05:01/05:05/05:09/05:05:13/05:14/05:17N /05:20/05:24/05:25/05:29Q/05:35/05:39 /05:43/05:44/05:46/05:48/05:50/05:53/05:58 /05:60/05:62EENRC 03:05/25:22/03:27/03:28/:29/:35/03:42 /03:44/03:46/:47/:49/03:50/03:51/03:55 /03:73/03:83/03:84N/03:92/03:93/03:94 /03:114/03:115/03:116/03:165/03:169/03:182 /03:191/03:196/03:197Q/03:198/03:206 /03:241/03:242/03:243/03:246/03:252/03:253 /03:254/03:266/03:276N/03:281/03:284 /03:285/03:288/03:290/03:291/03:292/03:293 /03:294/03:297/03:302/03:305/03:306/03:309 /03:312/03:314/03:317/03:326/03:328/03:329 /03:330/03:331/03:338N/03:340N/03:342 /03:350/03:354N/03:358N/03:361/03:370 /03:377/03:378/03:391/03:396/03:399N /03:400N/03:404/03:407N/03:419/03:420 /03:421/03:423/03:424/03:426/03:430/03:431 /03:432/03:434/03:435/03:436/03:439/03:448 /03:451/03:454/03:460/03:465/03:467/03:468 /03:472/03:475/03:480Q/03:482/:483 /03:486/03:491EENKS 01:05/23:04:05:18:22:18/06:29 :37:49/:53/:55/:60/:64/:66 /:67:80/:83/:86/:88N/:89 ::::99The patient is positive for DQA1*05, one half of the JH4zuypuoygiwv. The Celiac Disease risk from the HLA DQA/DQBgenotype is approximately 1:1842 (0.05%). This is lessthan the 1% risk in the general population.Allele interpretation for all loci based on IMGT/HLAdatabase version 3.49.0[facility] CLIA ID Number [id number] than 95% of celiac patients are positive for eitherDQ2 or DQ8 (Radha and Jason, (1993) [id number]). However these antigens may also be present inpatients who do not have Celiac disease. IgA [Mass/volume] in Serum o r PlasmaOrdered By: Trung Dalal on 07-29-2023 IgA [Mass/Vol] 248 mg/dL 87-352 [facility] Comment on above: Performed at: [address] [id number] Director: Jona Guy PhD, Phone: [phone] Leukocytes [#/volume] correc james for nucleated erythrocytes in Blood by Automated counOrdered By: Kori Feng on 07-29-2023 WBC corrected for nucl RBC Auto (Bld) [#/Vol] 7.2 10*3/uL 3.8-11.6 [facility] Lymphocytes Auto (Bld) [#/Vo l]Ordered By: Kori Feng on 07-29-2023 Lymphocytes (Bld) [#/Vol] 1.7 10*3/uL 1.00-4.8 [facility] Lymphocytes/100 WBC Auto (Bl d)Ordered By: Kori Feng on 07-29-2023 Lymphocytes/100 WBC (Bld) 24.3 % . [facility] MCH Auto (RBC) [Entitic mass ]Ordered By: Kori eFng on 07-29-2023 MCH (RBC) [Entitic mass] 34.3 pg 24.7-34.3 [facility] MCHC Auto (RBC) [Mass/Vol]Or dered By: Kori Feng on 07-29-2023 MCHC (RBC) [Mass/Vol] 34.1 g/dL 32.0-35.0 [facility] MCV Auto (RBC) [Entitic vol] Ordered By: Kori Feng on 07-29-2023 MCV (RBC) [Entitic vol] 100.7 fL 80-100 [facility] Monocytes Auto (Bld) [#/Vol] Ordered By: Kori Feng on 07-29-2023 Monocytes (Bld) [#/Vol] 0.6 10*3/uL 0.0-0.8 [facility] Monocytes/100 WBC Auto (Bld) Ordered By: Kori Feng on 07-29-2023 Monocytes/100 WBC (Bld) 8.8 % . [facility] Neutrophils Auto (Bld) [#/Vo l]Ordered By: Kori Feng on 07-29-2023 Neutrophils (Bld) [#/Vol] 4.6 10*3/uL 1.8-7.7 [facility] Neutrophils/100 WBC Auto (Bl d)Ordered By: Kori Feng on 07-29-2023 Neutrophils/100 WBC (Bld) 64.3 % . [facility] No Panel InformationOrdered By: Trung Dalal on 07-29-2023 Celiac Gene Interpretation See comment . [facility] Comment on above: References:1. Rm ROLDAN and Albert Amanda. Celiac Disease. N Eng J Med 2007; 357:0931-1882.2. Megiorni F, Maya B, Bonamico M et [...] Hepat 3:843-851.5. Gianluca CL, Adonis DO, Rm PHR, et al. Celiac Disease. In: Curry RA, Dillon TC, Siddhartha CR, She K, editors. [employer]), [facility], [place], November 23, 2007:1-27. http://www.ncbi.nlm.nih.gov/booksmandeepf/br.fcgi?book=genepart=sheng ac PMID [id number] (PubMed)6. Charlee W. Emerging concepts in celiac disease. Curr Opin Pediatr 2004;16:552-559.Performed at: [address] [place] [id number] Director: Nina Rodriguez PhD, Phone: [phone] Endomysial IgA Antibody Negative Negative [facility] HLA Genotype Interpretation See comment . [facility] Comment on above: This test was perfor med using Polymerase Chain Reaction(PCR) and Sequence Specific Oligonucleotide Probes (SSOP)(Luminex) technique. Sequence Based Typing (SBT) may beused as a supplemental method when necessary.If you have questions, please call HLA customer serviceat or email at [email or web address] No Panel InformationOrdered By: Kori Feng on 07-29-2023 Estimated GFR (CKD-EPI) > 60.0 mL/Min [facility] Creatinine Clearance (Chem 137.78 [facility] Nucleated erythrocytes [Pres ence] in Blood by Automated countOrdered By: Kori Feng on 07-29-2023 Nucleated RBC Auto Ql (Bld) 0.1 /100{WBC} 0-0.5 [facility] Platelet mean volume Auto (B ld) [Entitic vol]Ordered By: Kori Feng on 07-29-2023 Platelet mean volume (Bld) [Entitic vol] 7.0 fL 6.3-10.7 [facility] Platelets Auto (Bld) [#/Vol] Ordered By: Kori Feng on 07-29-2023 Platelets (Bld) [#/Vol] 112 10*3/uL 150-450 [facility] Potassium [Moles/volume] in Serum or PlasmaOrdered By: Kori Feng on 07-29-2023 Potassium [Moles/Vol] 3.8 mmol/L 3.5-5.1 [facility] RBC Auto (Bld) [#/Vol]Ordere d By: Kori Feng on 07-29-2023 RBC (Bld) [#/Vol] 3.59 10*6/uL 3.60-5.00 [facility] Serum gliadin peptide IgA an tibody assay (units/volume)Ordered By: Trung Dalal on 07-29-2023 Gliadin peptide IgA Qn (S) 5 units 0-19 [facility] Comment on above: Negative 0 - 19 Weak Positive 20 - 30 Moderate to Strong Positive >30 Serum gliadin peptide IgG an tibody assay (units/volume)Ordered By: Trung Dalal on 07-29-2023 Gliadin peptide IgG Qn (S) 1 units 0-19 [facility] Comment on above: Negative 0 - 19 Weak Positive 20 - 30 Moderate to Strong Positive >30 Serum or plasma anion gap de terminationOrdered By: Kori Feng on 07-29-2023 Anion gap [Moles/Vol] 8.8 mmol/L 6.0-15.0 [facility] Serum tissue transglutaminas e (tTG) IgA antibody assay (units/volume)Ordered By: Trung Dalal on 07-29-2023 tTG IgA Qn (S) <2 U/mL 0-3 [facility] Comment on above: Negative 0 - 3 Weak Positive 4 - 10 Positive >10 Tissue Transglutaminase (tTG) has been identified as the endomysial antigen. Studies have demonstr- ated that endomysial IgA antibodies have over 99% specificity for gluten sensitive enteropathy. Serum tissue transglutaminas e (tTG) IgG antibody assay (units/volume)Ordered By: Trung Dalal on 07-29-2023 tTG IgG Qn (S) 2 U/mL 0-5 [facility] Comment on above: Negative 0 - 5 Weak Positive 6 - 9 Positive >9 Sodium [Moles/volume] in Ser um or PlasmaOrdered By: Kori Feng on 07-29-2023 Sodium [Moles/Vol] 137 mmol/L 136-145 [facility] Stool bacteria identificatio n by cultureOrdered By: Trung Dalal on 07-29-2023 Bacteria identified Cx Nom (Stl) [facility] Stool reducing substances de tectionOrdered By: Trung Dalal on 07-29-2023 Reducing substances Ql (Stl) Normal Normal [facility] Comment on above: Performed at: [employer] [address] [id number] Director: Kashmir Ayala [facility], Phone: [phone] Thyrotropin [Units/volume] i n Serum or PlasmaOrdered By: Cedric Biggs on 07-29-2023 TSH Qn 1.66 m[IU]/L 0.45-5.33 [facility] Urea nitrogen [Mass/volume] in Serum or PlasmaOrdered By: Kori Feng on 07-29-2023 Urea nitrogen [Mass/Vol] 3 mg/dL 7-25 [facility] Vitamin B12 ser/plasOrdered By: Cedric Biggs on 07-29-2023 Cobalamin (Vitamin B12) [Mass/Vol] 137 pg/mL 180-914 [facility] WBC Auto (Bld) [#/Vol]Ordere d By: Kori Feng on 07-29-2023 WBC (Bld) [#/Vol] 7.2 10*3/uL 3.8-11.6 [facility] Magnesium [Mass/volume] in S isidro or PlasmaOrdered By: Kori Feng on 07-28-2023 Magnesium [Mass/Vol] 2.2 mg/dL 1.9-2.7 [facility] Troponin I.cardiac [Mass/vol ume] in Serum or Plasma by Detection limit <= 0.01 ng/Ordered By: Heriberto Shin on 07-28-2023 Troponin I.cardiac DL <= 0.01 ng/mL [Mass/Vol] 9.6 pg/mL 0.0-15.0 [facility] Automated erythrocytes count in urine sediment (number/area)Ordered By: Mireille Ley on 07-27-2023 RBC Auto (Urine sed) [#/Area] 5-9 [HPF] 0-4 [facility] Automated leukocytes count i n urine sediment (number/area)Ordered By: Mireille Ley on 07-27-2023 WBC Auto (Urine sed) [#/Area] 5-9 [HPF] 0-4 [facility] Bilirubin Test strip Ql (U)O rdered By: Mireille Ley on 07-27-2023 Bilirubin Ql (U) 1+ Negative [facility] Color Auto (U)Ordered By: Makayla Ley on 07-27-2023 Color (U) Dark yellow Yellow [facility] HCG ( test) IA.rapi d Ql (U)Ordered By: PROVIDER MICHAEL on 07-27-2023 HCG ( test) Ql (U) Negative [facility] Ketones Auto test strip (U) [Mass/Vol]Ordered By: Mireille Ley on 07-27-2023 Ketones (U) [Mass/Vol] Trace Negative [facility] Laboratory - UrinalysisOrder ed By: Mireille Ley on 07-27-2023 Hyaline casts LM Ql (Urine sed) 0-8 [LPF] 0-8 [facility] Monocyte distribution width [Entitic volume] in Blood by AutomatedOrdered By: GILLIAN RODRIGUEZ on 07-27-2023 Monocyte distribution width Auto (Bld) [Entitic vol] 21.67 % 0.00-20.00 [facility] Comment on above: For adults in ED, MD W > 20.0 may be associated with a higher risk of sepsis during the first 12 hrs of hospital admission Nitrite Test strip Ql (U)Ord ered By: Mireille Ley on 07-27-2023 Nitrite Ql (U) Negative Negative [facility] Protein Auto test strip (U) [Mass/Vol]Ordered By: Mireille Ley on 07-27-2023 Protein (U) [Mass/Vol] 30 mg/dL Negative [facility] Specific gravity Auto test s trip (U) [Rel density]Ordered By: Mireille Ley on 07-27-2023 Specific gravity (U) [Rel density] 1.026 1.001-1.[address] [facility] Squamous epithelial cells de tection in urine sediment by light microscopyOrdered By: Mireille Ley on 07-27-2023 Epithelial cells.squamous LM Ql (Urine sed) 1-2 [HPF] 0-2 [facility] Urine bacteria detection by automated methodOrdered By: Mireille Ley on 07-27-2023 Bacteria Auto Ql (U) None seen None Seen [facility] Urine clarity by refractomet ry automatedOrdered By: Mireille Ley on 07-27-2023 Clarity Refractometry automated (U) Clear Clear [facility] Urine culture routineOrdered By: Mireille Ley on 07-27-2023 Bacteria identified Cx Nom (U) [address] [facility] Urine glucose measurement by automated test strip (mass/volume)Ordered By: Mireille Ley on 07-27-2023 Glucose Auto test strip (U) [Mass/Vol] Normal mg/dL Normal [facility] Urine hemoglobin detection b y automated test stripOrdered By: Mireille Ley on 07-27-2023 Hemoglobin Auto test strip Ql (U) Negative Negative [facility] Urine leukocyte esterase det ection by automated test stripOrdered By: Mireille Ley on 07-27-2023 Leukocyte esterase Auto test strip Ql (U) 2+ Negative [facility] Urobilinogen Auto test strip (U) [Mass/Vol]Ordered By: Mireille Ley on 07-27-2023 Urobilinogen (U) [Mass/Vol] Normal mg/dL Normal [facility] pH Auto test strip (U)Ordere d By: Mireille Ley on 07-27-2023 pH (U) 6.0 [pH] 5.0-9.0 [facility] CBC AND AUTO DIFFon 06-19-19 24 ABSOLUTE BASOPHIL 0.0 X10E9/L Normal 0.0-0.2 [facility] Comment on above: Performed By: #### C BCA, CMP, 3040-3, 06052-0 #### [facility] ([id number]) [address] [place] [address], [place] [address] ABSOLUTE NEUTROPHIL 4.1 X10E9/L Normal 1.5-6.6 [facility] Comment on above: Performed By: #### C FATOU GUTIÉRREZ, 3039-07, #### [facility] ([id number]) [address] [place] [address]684 Basophils/100 WBC (Bld) 0.2 % Normal [facility] Comment on above: Performed By: #### Treasure GUTIÉRREZ CMP, 3039-07, #### [facility] ([id number]) [address] [place] [address] Eosinophils (Bld) [#/Vol] 0.0 10*3/uL Normal 0.0-0.4 [facility] Comment on above: Performed By: #### Treasure GUTIÉRREZ CMP, 3039-07, #### [facility] ([id number]) [address] [place] [address]263 Eosinophils/100 WBC (Bld) 0.0 % Normal [facility] Comment on above: Performed By: #### Treasure GUTIÉRREZ [facility], 3039-07, #### [facility] ([id number]) [address] [place] [address] Erythrocyte distribution width (RBC) [Ratio] 13.4 % Normal 11.5-15.0 [facility] Comment on above: Performed By: #### Treasure GUTIÉRREZ CMP, 3039-07, #### [facility] ([id number]) [address] [place] [address]690 Hematocrit (Bld) [Volume fraction] 40.8 % Normal 35-47 [facility] Comment on above: Performed By: #### Treasure GUTIÉRREZ CMP, 3039-07, #### [facility] ([id number]) [address] [place] [address]7627 Hemoglobin (Bld) [Mass/Vol] 13.7 g/dL Normal 11.7-15.5 [facility] Comment on above: Performed By: #### C FATOU GUTIÉRREZ, 3039-07, #### [facility] ([id number]) [address] [place] [address] 10509 Lymphocytes (Bld) [#/Vol] 0.6 10*3/uL Low 1.0-3.5 [facility] Comment on above: Performed By: #### Treasure GUTIÉRREZ CMP, 3039-07, #### [facility] ([id number]) [address] [place] [address] 35303 Lymphocytes/100 WBC (Bld) 12.5 % Normal [facility] Comment on above: Performed By: #### C FATOU GUTIÉRREZ, 3039-07, #### [facility] ([id number]) [address] [place] [address] 17708 MCH (RBC) [Entitic mass] 34.5 pg High 27-34 [facility] Comment on above: Performed By: #### C BROCK [facility], 3039-07, #### [facility] ([id number]) [address] [place] [address] 12376 MCHC (RBC) [Mass/Vol] 33.7 g/dL Normal 32-36 [facility] Comment on above: Performed By: #### C FATOU GUTIÉRREZ, 3039-07, #### [facility] ([id number]) [address] [place] [address] 10858 MCV (RBC) [Entitic vol] 102 fL High 80-100 [facility] Comment on above: Performed By: #### C FATOU GUTIÉRREZ, 3039-07, #### [facility] ([id number]) [address] [place] [address] 98636 Monocytes (Bld) [#/Vol] 0.1 10*3/uL Normal 0-0.9 [facility] Comment on above: Performed By: #### C BROCK, CMP, 3039-07, #### [facility] ([id number]) [address] [place] [address] 52024 Monocytes/100 WBC (Bld) 3.0 % Normal [facility] Comment on above: Performed By: #### Treasure GUTIÉRREZ, CMP, 3039-07, #### [facility] ([id number]) [address] [place] [address] 80108 Neutrophils/100 WBC (Bld) 84.3 % Normal [facility] Comment on above: Performed By: #### Treasure GUTIÉRREZ, CMP, 3039-07, #### [facility] ([id number]) [address] [place] [address] 61660 Platelet mean volume (Bld) [Entitic vol] 7.1 fL Normal 7-12 [facility] Comment on above: Performed By: #### C BROCK, CMP, 3039-07, #### [facility] ([id number]) [address] [place] [address] 10925 Platelets (Bld) [#/Vol] 321 10*3/uL Normal 150-450 [facility] Comment on above: Performed By: #### Treasure GUTIÉRREZ, CMP, 3039-07, #### [facility] ([id number]) [address] [place] [address] 48831 RBC COUNT 3.99 X10E12/L Normal 3.80-5.20 [facility] Comment on above: Performed By: #### C BROCK, CMP, 3039-07, #### [facility] ([id number]) [address] [place] [address] 18279 WBC (Bld) [#/Vol] 4.9 10*3/uL Normal 4.0-11.0 [facility] Comment on above: Performed By: #### C BCA, CMP, 3, 74159-7 #### [facility] ([id number]) [address] [place] [address] 42796 COMPREHENSIVE METABOLIC PANE Sourav 06-19-2023 Albumin [Mass/Vol] 4.2 g/dL Normal 3.2-5.3 [facility] Comment on above: Performed By: #### C BCA, CMP, 3, #### [facility] ([id number]) [address] [place] [address] 10524 ALP [Catalytic activity/Vol] 55 U/L Normal 39-130 [facility] Comment on above: Performed By: #### C BCA, CMP, 3039-07, #### [facility] ([id number]) [address] [place] [address] 05308 ALT [Catalytic activity/Vol] 52 U/L High 0-31 [facility] Comment on above: Performed By: #### C BCA, CMP, 3039-07, 77709-3 #### [facility] ([id number]) [address] [place] [address] 51585 Anion gap [Moles/Vol] 10 mmol/L Normal 5-15 [facility] Comment on above: Performed By: #### C BCA, CMP, 3039-07, 99039-2 #### [facility] ([id number]) [address] [place] [address] 25910 AST [Catalytic activity/Vol] 93 U/L High 0-41 [facility] Comment on above: Performed By: #### C BCA, CMP, 3, 17243-7 #### [facility] ([id number]) [address] [place] [address] 58324 Bilirubin [Mass/Vol] 1.3 mg/dL High 0.3-1.2 [facility] Comment on above: Performed By: #### C BCA, CMP, 0-3, #### [facility] ([id number]) [address] [place] [address] 99693 Calcium [Mass/Vol] 8.8 mg/dL Normal 8.5-10.5 [facility] Comment on above: Performed By: #### C BCA, CMP, 3, #### [facility] ([id number]) [address] [place] [address] 11980 Chloride [Moles/Vol] 102 mmol/L Normal 98-109 [facility] Comment on above: Performed By: #### C BCA, CMP, 3, #### [facility] ([id number]) [address] [place] [address] 48769 CO2 [Moles/Vol] 26 mmol/L Normal 22-32 [facility] Comment on above: Performed By: #### C BCA, CMP, 3, #### [facility] ([id number]) [address] [place] [address] 52776 Creatinine [Mass/Vol] 0.67 mg/dL Normal 0.40-1.00 [facility] Comment on above: Result Comment: METH OD TRACEABLE TO IDMS STANDARD Performed By: #### C BCA, CMP, 3, 13504-9 #### [facility] ([id number]) [address] [place] [address] 47841 eGFR (CKD-EPI) NON-RACE DEPENDENT >90 Normal >59 [facility] Comment on above: Result Comment: Reported eGFR is based on the CKD-EPI 2020 equation that does not use a race coefficient. Performed By: #### C BCA, CMP, 0-3, #### [facility] ([id number]) [address] [place] [address] [place] [address] Glucose [Mass/Vol] 114 mg/dL High 65-99 [facility] Comment on above: Performed By: #### C BROCK, CMP, 3, 70328-9 #### [facility] ([id number]) [address] [place] [address] 36907 Potassium [Moles/Vol] 3.7 mmol/L Normal 3.5-5.0 [facility] Comment on above: Performed By: #### C BROCK, CMP, 3, #### [facility] ([id number]) [address] [place] [address] 67295 Protein [Mass/Vol] 7.6 g/dL Normal 6.0-8.0 [facility] Comment on above: Performed By: #### C BROCK, CMP, 3039-07, #### [facility] ([id number]) [address] [place] [address] 16291 Sodium [Moles/Vol] 138 mmol/L Normal 134-146 [facility] Comment on above: Performed By: #### C BCA, CMP, 3039-07, 45850-0 #### [facility] ([id number]) [address] [place] [address] 72922 Urea nitrogen [Mass/Vol] 13 mg/dL Normal 5-23 [facility] Comment on above: Performed By: #### C BCA, CMP, 3039-07, 08810-6 #### [facility] ([id number]) [address] [place] [address] 99681 HCG ( test) Ql (U)o n 06-19-2023 Beta HCG ( test) Ql (U) Negative Normal NEG [facility] Comment on above: Performed By: #### C BCA, CMP, 3039-07, #### [facility] ([id number]) [address] [place] [address] [place] [address] LIPASEon 06-19-2023 Lipase [Catalytic activity/Vol] 45 U/L High 17-40 [facility] Comment on above: Performed By: #### C BROCK CMP, 3, #### [facility] ([id number]) [address] [place] [address] 78697 URN MACROSCOPIC NURon 2023 BILIRUBIN AHMET Negative Normal NEG [facility] Comment on above: Performed By: #### C BROCK, CMP, 3039-07, #### [facility] ([id number]) [address] [place] [address] 69053 BLOOD/HGB AHMET Trace Abnormal NEG [facility] Comment on above: Performed By: #### C BROCK CMP, 3039-07, #### [facility] ([id number]) [address] [place] [address] [place] [address] GLUCOSE AHMET Negative Normal [facility] Comment on above: Performed By: #### C BROCK CMP, 3039-07, #### [facility] ([id number]) [address] [place] [address] [place] [address] KETONES AHMET Negative Normal NEG [facility] Comment on above: Performed By: #### C BROCK CMP, 3039-07, #### [facility] ([id number]) [address] [place] [address] [place] [address] LEUKOCYTE ESTERASE AHMET Negative Normal NEG [facility] Comment on above: Performed By: #### C BROCK CMP, 3039-07, #### [facility] ([id number]) [address] [place] [address] [place] [address] NITRITE AHMET Negative Normal NEG [facility] Comment on above: Performed By: #### C BROCK CMP, 3039-3, #### [facility] ([id number]) [address] [place] [address] 95816 PH AHMET 6.5 Normal 5.0-8.5 [facility] Comment on above: Performed By: #### C BCA, CMP, 3039-3, #### [facility] ([id number]) [address] [place] [address] 10053 PROTEIN AHMET Negative Normal NEG [facility] Comment on above: Performed By: #### C BCA, CMP, 3039-3, #### [facility] ([id number]) [address] [place] [address] 55342 SPECIFIC GRAVITY AHMET 1.025 Normal 1.003-1 .03 5 [facility] Comment on above: Performed By: #### C BCA, CMP, 3, #### [facility] ([id number]) [address] [place] [address] 08929 UROBILINOGEN AHMET 1.0 eu/dL Normal <1.1 [facility] Comment on above: Performed By: #### C BCA, CMP, 3039-3, #### [facility] ([id number]) [address] [place] [address] 77803 Alanine aminotransferase [En zymatic activity/volume] in Serum or PlasmaOrdered By: Heriberto Shin on 05-30-2023 ALT [Catalytic activity/Vol] 49 U/L 7-52 [facility] Albumin [Mass/volume] in Ser um or Plasma by Bromocresol green (BCG) dye binding methoOrdered By: Heriberto Shin on 05-30-2023 Albumin BCG dye [Mass/Vol] 4.2 g/dL 3.5-5.7 [facility] Alkaline phosphatase [Enzyma tic activity/volume] in Serum or PlasmaOrdered By: Heriberto Shin on 05-30-2023 ALP [Catalytic activity/Vol] 76 U/L 34-104 [facility] Aspartate aminotransferase [ Enzymatic activity/volume] in Serum or PlasmaOrdered By: Heriberto Shin on 05-30-2023 AST [Catalytic activity/Vol] 55 U/L 13-39 [facility] Basophils Auto (Bld) [#/Vol] Ordered By: Heriberto Shin on 05-30-2023 Basophils (Bld) [#/Vol] 0.0 10*3/uL 0.0-0.2 [facility] Basophils/100 WBC Auto (Bld) Ordered By: Heriberto Shin on 05-30-2023 Basophils/100 WBC (Bld) 0.2 % . [facility] Bilirubin.total [Mass/volume ] in Serum or PlasmaOrdered By: Heriberto Shin on 05-30-2023 Bilirubin [Mass/Vol] 2.4 mg/dL 0.3-1.0 [facility] Comment on above: Samples from patient s who have taken Naproxen have shown spurious elevation in Total Bilirubin levels. A metabolite of Naproxen, O-desmethylnaproxen, has been shown to interfere with the Doretha method for measuring Total Bilirubin. Calcium [Mass/volume] in Ser um or PlasmaOrdered By: Heriberto Shin on 05-30-2023 Calcium [Mass/Vol] 9.2 mg/dL 8.6-10.3 [facility] Carbon dioxide, total [Moles /volume] in Serum or PlasmaOrdered By: Heriberto Shin on 05-30-2023 CO2 [Moles/Vol] 28.6 mmol/L 21.0-31.0 [facility] Chloride [Moles/volume] in S isidro or PlasmaOrdered By: Heriberto Shin on 05-30-2023 Chloride [Moles/Vol] 96 mmol/L 98-107 [facility] Creatinine [Mass/volume] in Serum or PlasmaOrdered By: Heriberto Shin on 05-30-2023 Creatinine [Mass/Vol] 0.77 mg/dL 0.60-1.20 [facility] Eosinophils Auto (Bld) [#/Vo l]Ordered By: Heriberto Shin on 05-30-2023 Eosinophils (Bld) [#/Vol] 0.0 10*3/uL 0.0-0.45 [facility] Eosinophils/100 WBC Auto (Bl d)Ordered By: Heriberto Shin on 05-30-2023 Eosinophils/100 WBC (Bld) 0.0 % . [facility] Erythrocyte distribution wid th Auto (RBC) [Ratio]Ordered By: Heriberto Shin on 05-30-2023 Erythrocyte distribution width (RBC) [Ratio] 13.2 % 11.9-15.3 [facility] Globulin Calc (S) [Mass/Vol] Ordered By: Heriberto Shin on 05-30-2023 Globulin (S) [Mass/Vol] 2.9 g/dL [facility] Glucose [Mass/volume] in Ser um or PlasmaOrdered By: Heriberto Shin on 05-30-2023 Glucose [Mass/Vol] 90 mg/dL 70-100 [facility] Comment on above: ADA recommended refe rence rangeRandom Glucose Reference Range is dependent on time and content of last meal. Glucose of more than 200 mg/dL in a nonstressed, ambulatory subject supports the diagnosis of Diabetes Mellitus. Hematocrit Auto (Bld) [Volum e fraction]Ordered By: Heriberto Shin on 05-30-2023 Hematocrit (Bld) [Volume fraction] 45.0 % 34.0-46.4 [facility] Hemoglobin [Mass/volume] in BloodOrdered By: Heriberto Shin on 05-30-2023 Hemoglobin (Bld) [Mass/Vol] 15.4 g/dL 11.8-15.4 [facility] Leukocytes [#/volume] correc james for nucleated erythrocytes in Blood by Automated counOrdered By: Heriberto Shin on 05-30-2023 WBC corrected for nucl RBC Auto (Bld) [#/Vol] 11.0 10*3/uL 3.8-11.6 [facility] Lymphocytes Auto (Bld) [#/Vo l]Ordered By: Heriberto Shin on 05-30-2023 Lymphocytes (Bld) [#/Vol] 0.8 10*3/uL 1.00-4.8 [facility] Lymphocytes/100 WBC Auto (Bl d)Ordered By: Heriberto Shin on 05-30-2023 Lymphocytes/100 WBC (Bld) 7.0 % . [facility] MCH Auto (RBC) [Entitic mass ]Ordered By: Heriberto Shin on 05-30-2023 MCH (RBC) [Entitic mass] 34.7 pg 24.7-34.3 [facility] MCHC Auto (RBC) [Mass/Vol]Or dered By: Heriberto Shin on 05-30-2023 MCHC (RBC) [Mass/Vol] 34.2 g/dL 32.0-35.0 [facility] MCV Auto (RBC) [Entitic vol] Ordered By: Heriberto Shin on 05-30-2023 MCV (RBC) [Entitic vol] 101.5 fL 80-100 [facility] Magnesium [Mass/volume] in S isidro or PlasmaOrdered By: Heriberto Shin on 05-30-2023 Magnesium [Mass/Vol] 2.2 mg/dL 1.9-2.7 [facility] Monocytes Auto (Bld) [#/Vol] Ordered By: Heriberto Shin on 05-30-2023 Monocytes (Bld) [#/Vol] 0.5 10*3/uL 0.0-0.8 [facility] Monocytes/100 WBC Auto (Bld) Ordered By: Heriberto Shin on 05-30-2023 Monocytes/100 WBC (Bld) 4.7 % . [facility] Neutrophils Auto (Bld) [#/Vo l]Ordered By: Heriberto Shin on 05-30-2023 Neutrophils (Bld) [#/Vol] 9.7 10*3/uL 1.8-7.7 [facility] Neutrophils/100 WBC Auto (Bl d)Ordered By: Heriberto Shin on 05-30-2023 Neutrophils/100 WBC (Bld) 88.1 % . [facility] No Panel InformationOrdered By: Heriberto Shin on 05-30-2023 Estimated GFR (CKD-EPI) > 60.0 mL/Min [facility] Creatinine Clearance (Chem 94.82 [facility] Nucleated erythrocytes [Pres ence] in Blood by Automated countOrdered By: Heriberto Shin on 05-30-2023 Nucleated RBC Auto Ql (Bld) 0.1 /100{WBC} 0-0.5 [facility] Platelet mean volume Auto (B ld) [Entitic vol]Ordered By: Heriberto Shin on 05-30-2023 Platelet mean volume (Bld) [Entitic vol] 7.9 fL 6.3-10.7 [facility] Platelets Auto (Bld) [#/Vol] Ordered By: Heriberto Shin on 05-30-2023 Platelets (Bld) [#/Vol] 315 10*3/uL 150-450 [facility] Potassium [Moles/volume] in Serum or PlasmaOrdered By: Heriberto Shin on 05-30-2023 Potassium [Moles/Vol] 4.1 mmol/L 3.5-5.1 [facility] Protein [Mass/volume] in Ser um or PlasmaOrdered By: Heriberto Shin on 05-30-2023 Protein [Mass/Vol] 7.1 g/dL 6.4-8.9 [facility] RBC Auto (Bld) [#/Vol]Ordere d By: Heriberto Shin on 05-30-2023 RBC (Bld) [#/Vol] 4.44 10*6/uL 3.60-5.00 [facility] Serum or plasma albumin/glob ulin mass ratioOrdered By: Heriberto Shin on 05-30-2023 Albumin/Globulin [Mass ratio] 1.4 {ratio} [facility] Serum or plasma anion gap de terminationOrdered By: Heriberto Shin on 05-30-2023 Anion gap [Moles/Vol] 14.5 mmol/L 6.0-15.[address] [facility] Sodium [Moles/volume] in Ser um or PlasmaOrdered By: Heriberto Shin on 05-30-2023 Sodium [Moles/Vol] 135 mmol/L 136-145 [facility] Urea nitrogen [Mass/volume] in Serum or PlasmaOrdered By: Heriberto Shin on 05-30-2023 Urea nitrogen [Mass/Vol] 8 mg/dL 7-25 [facility] WBC Auto (Bld) [#/Vol]Ordere d By: Heriberto Shin on 05-30-2023 WBC (Bld) [#/Vol] 11.0 10*3/uL 3.8-11.6 [facility] HEMOGLOBINon 05-29-2023 Hemoglobin (Bld) [Mass/Vol] 13.8 g/dL Normal 11.7-15.5 [facility] Comment on above: Performed By: #### C BCA, CMP, 0-3, 51342-4 #### [facility] ([id number]) [address] [place] [address] 61129 Hematocrit Auto (Bld) [Volum e fraction]on 05-29-2023 Hematocrit (Bld) [Volume fraction] 40.6 % Normal 35-47 [facility] Comment on above: Performed By: #### 4 544-3, 718-7 #### [facility] ([id number]) [address] [place] [address] 20908 CBC AND AUTO DIFFon 05-28-19 24 ABSOLUTE BASOPHIL 0.0 X10E9/L Normal 0.0-0.2 [facility] Comment on above: Performed By: #### C BCA, CMP, 3, 40810-2 #### [facility] ([id number]) [address] [place] [address] 59991 ABSOLUTE NEUTROPHIL 7.6 X10E9/L High 1.5-6.6 [facility] Comment on above: Performed By: #### C BCA, CMP, 3, 59556-5 #### [facility] ([id number]) [address] [place] [address] 03489 Basophils/100 WBC (Bld) 0.4 % Normal [facility] Comment on above: Performed By: #### C BCA, CMP, 3, 12616-2 #### [facility] ([id number]) [address] [place] [address] 48803 Eosinophils (Bld) [#/Vol] 0.0 10*3/uL Normal 0.0-0.4 [facility] Comment on above: Performed By: #### C BROCK CMP, 3, #### [facility] ([id number]) [address] [place] [address] 51951 Eosinophils/100 WBC (Bld) 0.3 % Normal [facility] Comment on above: Performed By: #### C BROCK, CMP, 3039-07, #### [facility] ([id number]) [address] [place] [address] 44783 Erythrocyte distribution width (RBC) [Ratio] 13.2 % Normal 11.5-15.0 [facility] Comment on above: Performed By: #### Treasure GUTIÉRREZ CMP, 3039-07, #### [facility] ([id number]) [address] [place] [address] 25783 Hematocrit (Bld) [Volume fraction] 45.9 % Normal 35-47 [facility] Comment on above: Performed By: #### Treasure GUTIÉRREZ CMP, 3039-07, #### [facility] ([id number]) [address] [place] [address] 77798 Hemoglobin (Bld) [Mass/Vol] 15.8 g/dL High 11.7-15.5 [facility] Comment on above: Performed By: #### Treasure GUTIÉRREZ, CMP, 3039-07, #### [facility] ([id number]) [address] [place] [address] 87847 Lymphocytes (Bld) [#/Vol] 0.8 10*3/uL Low 1.0-3.5 [facility] Comment on above: Performed By: #### C BCA, CMP, 3039-07, #### [facility] ([id number]) [address] [place] [address] 00945 Lymphocytes/100 WBC (Bld) 9.1 % Normal [facility] Comment on above: Performed By: #### C BCA, CMP, 3039-07, #### [facility] ([id number]) [address] [place] [address] 09854 MCH (RBC) [Entitic mass] 34.6 pg High 27-34 [facility] Comment on above: Performed By: #### C BROCK, CMP, 3039-07, #### [facility] ([id number]) [address] [place] [address] 52852 MCHC (RBC) [Mass/Vol] 34.4 g/dL Normal 32-36 [facility] Comment on above: Performed By: #### C BCA, CMP, 3039-07, #### [facility] ([id number]) [address] [place] [address] 19778 MCV (RBC) [Entitic vol] 100 fL Normal 80-100 [facility] Comment on above: Performed By: #### C BROCK, CMP, 3039-07, #### [facility] ([id number]) [address] [place] [address] 75278 Monocytes (Bld) [#/Vol] 0.6 10*3/uL Normal 0-0.9 [facility] Comment on above: Performed By: #### C BROCK, CMP, 3039-07, #### [facility] ([id number]) [address] [place] [address] 76696 Monocytes/100 WBC (Bld) 6.8 % Normal [facility] Comment on above: Performed By: #### C BCA, CMP, 3039-07, #### [facility] ([id number]) [address] [place] [address] 51466 Neutrophils/100 WBC (Bld) 83.4 % Normal [facility] Comment on above: Performed By: #### C BROCK, CMP, 3, 39933-5 #### [facility] ([id number]) [address] [place] [address] 38320 Platelet mean volume (Bld) [Entitic vol] 6.8 fL Low 7-12 [facility] Comment on above: Performed By: #### C BROCK CMP, 3039-07, #### [facility] ([id number]) [address] [place] [address] 73060 Platelets (Bld) [#/Vol] 278 10*3/uL Normal 150-450 [facility] Comment on above: Performed By: #### C BROCK, CMP, 3039-07, #### [facility] ([id number]) [address] [place] [address] 02208 RBC COUNT 4.58 X10E12/L Normal 3.80-5.20 [facility] Comment on above: Performed By: #### C BROCK CMP, 3039-07, 98100-2 #### [facility] ([id number]) [address] [place] [address] 54920 WBC (Bld) [#/Vol] 9.1 10*3/uL Normal 4.0-11.0 [facility] Comment on above: Performed By: #### C BROCK, CMP, 3039-07, 93192-8 #### [facility] ([id number]) [address] [place] [address] 54404 COMPREHENSIVE METABOLIC PANE Sourav 05-28-2023 Albumin [Mass/Vol] 4.2 g/dL Normal 3.2-5.3 [facility] Comment on above: Performed By: #### C BCA, CMP, 3, #### [facility] ([id number]) [address] [place] [address] 77220 ALP [Catalytic activity/Vol] 84 U/L Normal 39-130 [facility] Comment on above: Performed By: #### C BCA, CMP, 3, #### [facility] ([id number]) [address] [place] [address] 01621 ALT [Catalytic activity/Vol] 93 U/L High 0-31 [facility] Comment on above: Performed By: #### C BCA, CMP, 3039-07, #### [facility] ([id number]) [address] [place] [address] 52347 Anion gap [Moles/Vol] 16 mmol/L High 5-15 [facility] Comment on above: Performed By: #### C BCA, CMP, 3039-07, #### [facility] ([id number]) [address] [place] [address] 83261 AST [Catalytic activity/Vol] 238 U/L High 0-41 [facility] Comment on above: Performed By: #### C BCA, CMP, 3039-07, #### [facility] ([id number]) [address] [place] [address] 48684 Bilirubin [Mass/Vol] 1.7 mg/dL High 0.3-1.2 [facility] Comment on above: Performed By: #### C BCA, CMP, 3039-07, #### [facility] ([id number]) [address] [place] [address] 19384 Calcium [Mass/Vol] 9.0 mg/dL Normal 8.5-10.5 [facility] Comment on above: Performed By: #### C BCA, CMP, 3039-07, 31717-1 #### [facility] ([id number]) [address] [place] [address] 83353 Chloride [Moles/Vol] 103 mmol/L Normal 98-109 [facility] Comment on above: Performed By: #### C BROCK [facility], 3039-07, #### [facility] ([id number]) [address] [place] [address] 43601 CO2 [Moles/Vol] 19 mmol/L Low 22-32 [facility] Comment on above: Performed By: #### C BROCK [facility], 3039-07, #### [facility] ([id number]) [address] [place] [address] 65827 Creatinine [Mass/Vol] 0.75 mg/dL Normal 0.40-1.00 [facility] Comment on above: Result Comment: METH OD TRACEABLE TO IDMS STANDARD Performed By: #### C BROCK [facility], 3039-07, 70908-0 #### [facility] ([id number]) [address] [place] [address] 41829 eGFR (CKD-EPI) NON-RACE DEPENDENT >90 Normal >59 [facility] Comment on above: Result Comment: Reported eGFR is based on the CKD-EPI 2020 equation that does not use a race coefficient. Performed By: #### C FATOU GUTIÉRREZ, 3039-07, 82888-6 #### [facility] ([id number]) [address] [place] [address] 42364 Glucose [Mass/Vol] 95 mg/dL Normal 65-99 [facility] Comment on above: Performed By: #### C FATOU GUTIÉRREZ, 3039-07, 47289-3 #### [facility] ([id number]) [address] [place] [address] 63193 Potassium [Moles/Vol] 3.6 mmol/L Normal 3.5-5.0 [facility] Comment on above: Performed By: #### C BCA, CMP, 3040-3, 59633-4 #### [facility] ([id number]) [address] [place] [address] 20979 Protein [Mass/Vol] 7.7 g/dL Normal 6.0-8.0 [facility] Comment on above: Performed By: #### C BCA, CMP, 3040-3, 56374-9 #### [facility] ([id number]) [address] [place] [address] 59367 Sodium [Moles/Vol] 138 mmol/L Normal 134-146 [facility] Comment on above: Performed By: #### C BCA, CMP, 3040-3, 38925-5 #### [facility] ([id number]) [address] [place] [address] 26964 Urea nitrogen [Mass/Vol] 8 mg/dL Normal 5-23 [facility] Comment on above: Performed By: #### C BCA, CMP, 3040-3, 39737-9 #### [facility] ([id number]) [address] [place] [address] ABDOMEN AND PELVIS W CONT on [...] 4. No evidence of appendicitis. Finalized by eSdrick Tellez MD on 05/28/2023 7:32 PM Normal [facility] HCG ( test) Ql (U)o n 05-28-2023 Beta HCG ( test) Ql (U) Negative Normal NEG [facility] Comment on above: Performed By: #### 2 106-3 #### [facility] ([id number]) [address] [place] [id number] LIPASEon 05-28-2023 Lipase [Catalytic activity/Vol] 29 U/L Normal 17-40 [facility] Comment on above: Performed By: #### C BCA, CMP, 3040-3, 45467-1 #### [facility] ([id number]) [address] [place] [address] 15374 Lactate (P nancy) [Moles/Vol]o n 05-28-2023 Lactate [Moles/Vol] 3.5 mmol/L High 0.4-2.0 [facility] Comment on above: Performed By: #### 3 2133-1 #### [facility] ([id number]) [address] [place] [address] 42093 LACTATE W/REFLEX 3.0 mmol/L High 0.4-2.0 [facility] Comment on above: Performed By: #### 3 2133-1 #### [facility] ([id number]) [address] [place] [address] 05553 MAGNESIUMon 05-28-2023 Magnesium [Mass/Vol] 1.6 mg/dL Low 1.8-2.6 [facility] Comment on above: Performed By: #### C BCA, CMP, 3040-3, 63646-8 #### [facility] ([id number]) [address] [place] [address] URN MACROSCOPIC NURon 2023 BILIRUBIN AHMET Negative Normal NEG [facility] Comment on above: Performed By: #### N UM #### [facility] ([id number]) [address] [place] [id number] BLOOD/HGB AHMET Negative Normal NEG [facility] Comment on above: Performed By: #### N UM #### [facility] ([id number]) [address] [place] [address] 02581 GLUCOSE AHMET Negative Normal NEG [facility] Comment on above: Performed By: #### N UM #### [facility] ([id number]) [address] [place] [address] [id number] KETONES AHMET Negative Normal NEG [facility] Comment on above: Performed By: #### N UM #### [facility] ([id number]) [address] [place] [address] 22051 LEUKOCYTE ESTERASE AHMET Negative Normal NEG [facility] Comment on above: Performed By: #### N UM #### [facility] ([id number]) [address] [place] [address] 14245 NITRITE AHMET Negative Normal NEG [facility] Comment on above: Performed By: #### N UM #### [facility] ([id number]) [address] [place] [address] 27635 PH AHMET 5.5 Normal 5.0-8.5 [facility] Comment on above: Performed By: #### N UM #### [facility] ([id number]) [address] [place] [address] 01158 PROTEIN AHEMT 30 mg/dL Abnormal NEG [facility] Comment on above: Performed By: #### N UM #### [facility] ([id number]) [address] [place] [address] 28914 SPECIFIC GRAVITY AHMET >=1.030 Normal 1.003-1 .03 5 [facility] Comment on above: Performed By: #### N UM #### [facility] ([id number]) [address] [place] [address] 60347 UROBILINOGEN AHMET 1.0 eu/dL Normal <1.1 [facility] Comment on above: Performed By: #### N UM #### [facility] ([id number]) [address] [place] [address] 79912 Amphetamine Screen Ql (U)Ord ered By: Imad Asaad on 05-17-2023 Amphetamines Ql (U) Negative Negative [facility] Barbiturates [Presence] in U rine by Screen methodOrdered By: Imad Asaad on 05-17-2023 Barbiturates Screen Ql (U) Negative Negative [facility] Benzodiazepines Screen Ql (U )Ordered By: Imad Asaad on 05-17-2023 Benzodiazepines Ql (U) Negative Negative [facility] Benzoylecgonine [Presence] i n Urine by Screen methodOrdered By: Imad Asaad on 05-17-2023 Benzoylecgonine Screen Ql (U) Negative Negative [facility] Cannabinoids [Presence] in U rine by Screen methodOrdered By: Imad Asaad on 05-17-2023 Cannabinoids Screen Ql (U) Positive Negative [facility] Comment on above: These are unconfirme d results and should not be used for legal purposes. Drug Cut-Off Concentration: AMPH 1000 ng/mL HALIMA 200 ng/mL JOSUÉ 200 ng/mL COCM 300 ng/mL OP 300 ng/mL PCP 25 ng/mL THC 20 ng/mL HCG ( test) IA.rapi d Ql (U)Ordered By: Kenrick Gill on 05-17-2023 HCG ( test) Ql (U) Negative [facility] Opiates [Presence] in Urine by Screen methodOrdered By: Imagnes Gill on 05-17-2023 Opiates Screen Ql (U) Negative Negative [facility] Phencyclidine Screen Ql (U)O rdered By: agnes Gill on 05-17-2023 Phencyclidine Ql (U) Negative Negative [facility] CT abdomen pelvis w conon CT abdomen pelvis w con [facility] [place] [address] CT Scan Report Signed Patient: Yane Wallace MR#: [id number] 84 : 1995 Acct:[id number] Age/Sex: 27 / F ADM Date: 03/25/23 Loc: ER Room: Type: [facility] ER Attending Dr: Copies to: Rabia [...] Jeff Martines M.D.03/26/2023 8:59 AM Dictation Location: [place] [address] Transcribed By: [facility] 03/26/23858 Dictated By: Jeff Martines II, MD 03/26/2348 Signed By: 03/26/[address] [facility] Activated partial thrombopla stin time (aPTT) in platelet poor plasma by coagulation aOrdered By: Rabia Murrieta on 03-25-2023 aPTT Coag (PPP) [Time] 29.8 s 25.1-36.5 [facility] Comment on above: A hematocrit value g reater than 55% may lead to inaccurate results in coagulation testing. Patients having hematocrit values >55% require a special collection tube for coagulation studies. Please contact the laboratory at [phone] for redraw instructions. Alanine aminotransferase [En zymatic activity/volume] in Serum or PlasmaOrdered By: Rabia Murrieta on 03-25-2023 ALT [Catalytic activity/Vol] 69 U/L 7-52 [facility] Albumin [Mass/volume] in Ser um or Plasma by Bromocresol green (BCG) dye binding methoOrdered By: Rabia Murrieta on 03-25-2023 Albumin BCG dye [Mass/Vol] 4.3 g/dL 3.5-5.7 [facility] Alkaline phosphatase [Enzyma tic activity/volume] in Serum or PlasmaOrdered By: Rabia Murrieta on 03-25-2023 ALP [Catalytic activity/Vol] 77 U/L 34-104 [facility] Aspartate aminotransferase [ Enzymatic activity/volume] in Serum or PlasmaOrdered By: Rabia Murrieta on 03-25-2023 AST [Catalytic activity/Vol] 132 U/L 13-39 [facility] Automated erythrocytes count in urine sediment (number/area)Ordered By: Rabia Murrieta on 03-25-2023 RBC Auto (Urine sed) [#/Area] None seen [HPF] 0-4 [facility] Automated leukocytes count i n urine sediment (number/area)Ordered By: Rabia Murrieta on 03-25-2023 WBC Auto (Urine sed) [#/Area] 20-49 [HPF] 0-4 [facility] Automated urine hyaline cast s count (number/volume)Ordered By: Rabia Murrieta on 03-25-2023 Hyaline casts Auto (U) [#/Vol] 20-49 [LPF] 0-1 [facility] Basic Metabolic Panelon 11 Anion gap [Moles/Vol] 22.6 mmol/L High 6.0-15.[address] [facility] Comment on above: Performed By: #### C BC, PTT, HEPATIC, BMP, LIPASE, PT #### [facility] [address] [place] [address] [place] Calcium [Mass/Vol] 9.8 mg/dL Normal 8.6-10.3 [facility] Comment on above: Performed By: #### C BC, PTT, HEPATIC, BMP, LIPASE, PT #### [facility] [address] [place] [address] [place] Chloride [Moles/Vol] 102 mmol/L Normal 98-107 [facility] Comment on above: Performed By: #### C BC, PTT, HEPATIC, BMP, LIPASE, PT #### [facility] [address] CO2 [Moles/Vol] 20.9 mmol/L Low 21.0-31.0 [facility] Comment on above: Performed By: #### C BC, PTT, HEPATIC, BMP, LIPASE, PT #### [facility] [address] Creatinine [Mass/Vol] 0.71 mg/dL Normal 0.60-1.20 [facility] Comment on above: Performed By: #### C BC, PTT, HEPATIC, BMP, LIPASE, PT #### [facility] [address] Creatinine Clr Calc Pharmacy 99.09 [facility] Comment on above: Performed By: #### C BC, PTT, HEPATIC, BMP, LIPASE, PT #### [facility] [address] GFR/1.73 sq M.predicted MDRD (S/P/Bld) [Vol rate/Area] mL/min/{1.73_m2} [facility] Comment on above: Performed By: #### C BC, PTT, HEPATIC, BMP, LIPASE, PT #### [address] Glucose [Mass/Vol] 103 mg/dL High 70-100 [facility] Comment on above: Result Comment: [place] Glucose Reference Range is dependent on time and content of last meal. Glucose of more than 200 mg/dL in a nonstressed, ambulatory subject supports the diagnosis of Diabetes Mellitus. ADA recommended reference range Performed By: #### C BC, PTT, HEPATIC, BMP, LIPASE, PT #### [facility] [address] Potassium [Moles/Vol] 4.5 mmol/L Normal 3.5-5.1 [facility] Comment on above: Performed By: #### C BC, PTT, HEPATIC, BMP, LIPASE, PT #### [facility] [address] [place] [address] [place] Sodium [Moles/Vol] 141 mmol/L Normal 136-145 [facility] Comment on above: Performed By: #### C BC, PTT, HEPATIC, BMP, LIPASE, PT #### [facility] [address] [place] [address] [place] Urea nitrogen [Mass/Vol] 6 mg/dL Low 7-25 [facility] Comment on above: Performed By: #### C BC, PTT, HEPATIC, BMP, LIPASE, PT #### [facility] [address] [place] [address] [place] Basophils Auto (Bld) [#/Vol] Ordered By: Rabia Murrieta on 03-25-2023 Basophils (Bld) [#/Vol] 0.0 10*3/uL 0.0-0.2 [facility] Basophils/100 WBC Auto (Bld) Ordered By: Rabia Murrieta on 03-25-2023 Basophils/100 WBC (Bld) 0.3 % . [facility] Bilirubin Test strip Ql (U)O rdered By: Rabia Murrieta on 03-25-2023 Bilirubin Ql (U) 1+ Negative [facility] Bilirubin.direct [Mass/volum e] in Serum or PlasmaOrdered By: Rabia Murrieta on 03-25-2023 Bilirubin.direct [Mass/Vol] 0.30 mg/dL 0.03-0.18 [facility] Bilirubin.total [Mass/volume ] in Serum or PlasmaOrdered By: Rabia Murrieta on 03-25-2023 Bilirubin [Mass/Vol] 1.9 mg/dL 0.3-1.0 [facility] Comment on above: Samples from patient s who have taken Naproxen have shown spurious elevation in Total Bilirubin levels. A metabolite of Naproxen, O-desmethylnaproxen, has been shown to interfere with the Amisha-Kristopher method for measuring Total Bilirubin. Calcium [Mass/volume] in Ser um or PlasmaOrdered By: Rabia Murrieta on 03-25-2023 Calcium [Mass/Vol] 9.8 mg/dL 8.6-10.3 [facility] Carbon dioxide, total [Moles /volume] in Serum or PlasmaOrdered By: Rabia Murrieta on 03-25-2023 CO2 [Moles/Vol] 20.9 mmol/L 21.0-31.0 [facility] Casts typing in urine sedime nt by light microscopyOrdered By: Rabia Murrieta on 03-25-2023 Casts LM Nom (Urine sed) None seen [LPF] None Seen [facility] Chloride [Moles/volume] in S isidro or PlasmaOrdered By: Rabia Murrieta on 03-25-2023 Chloride [Moles/Vol] 102 mmol/L 98-107 [facility] Color Auto (U)Ordered By: Bob Murrieta on 03-25-2023 Color (U) Dark yellow Yellow [facility] Complete Blood Count Auto Di ffon 03-25-2023 Basophils (Bld) [#/Vol] 0.0 10*3/uL Normal 0.0-0.2 [facility] Comment on above: Result Comment: PERF ORMED BY: [place] [address] PATHOLOGIST ACOUSTICAL TILE DRILL PRESS OPERATOR SANDIE MAYES M.D. Performed By: #### C BC, PTT, HEPATIC, BMP, LIPASE, PT #### [facility] [address] Basophils/100 WBC (Bld) 0.3 % Normal . [facility] Comment on above: Performed By: #### C BC, PTT, HEPATIC, BMP, LIPASE, PT #### [facility] [address] Eosinophils (Bld) [#/Vol] 0.0 10*3/uL Normal 0.0-0.45 [facility] Comment on above: Performed By: #### C BC, PTT, HEPATIC, BMP, LIPASE, PT #### [facility] [address] [place] [address] [place] Eosinophils/100 WBC (Bld) 0.0 % Normal . [facility] Comment on above: Performed By: #### C BC, PTT, HEPATIC, BMP, LIPASE, PT #### [facility] [address] Erythrocyte distribution width (RBC) [Ratio] 13.2 % Normal 11.9-15.3 [facility] Comment on above: Performed By: #### C BC, PTT, HEPATIC, BMP, LIPASE, PT #### [address] Hematocrit (Bld) [Volume fraction] 46.4 % Normal 34.0-46.4 [facility] Comment on above: Performed By: #### C BC, PTT, HEPATIC, BMP, LIPASE, PT #### [address] Hemoglobin (Bld) [Mass/Vol] 16.0 g/dL High 11.8-15.4 [facility] Comment on above: Performed By: #### C BC, PTT, HEPATIC, BMP, LIPASE, PT #### [address] Lymphocytes (Bld) [#/Vol] 0.5 10*3/uL Low 1.00-4.8 [facility] Comment on above: Performed By: #### C BC, PTT, HEPATIC, BMP, LIPASE, PT #### [address] Lymphocytes/100 WBC (Bld) 4.9 % Normal . [facility] Comment on above: Performed By: #### C BC, PTT, HEPATIC, BMP, LIPASE, PT #### [address] MCH (RBC) [Entitic mass] 34.3 pg Normal 24.7-34.3 [facility] Comment on above: Performed By: #### C BC, PTT, HEPATIC, BMP, LIPASE, PT #### [address] MCV (RBC) [Entitic vol] 99.7 fL Normal 80-100 [facility] Comment on above: Performed By: #### C BC, PTT, HEPATIC, BMP, LIPASE, PT #### [address] Mean Corpuscular HGB Conc 34.4 g/dL Normal 32.0-35.0 [facility] Comment on above: Performed By: #### C BC, PTT, HEPATIC, BMP, LIPASE, PT #### [address] Monocytes (Bld) [#/Vol] 0.5 10*3/uL Normal 0.0-0.8 [facility] Comment on above: Performed By: #### C BC, PTT, HEPATIC, BMP, LIPASE, PT #### [address] Monocytes/100 WBC (Bld) 18.22 % Normal 0.00-20.00 [facility] Comment on above: Performed By: #### C BC, PTT, HEPATIC, BMP, LIPASE, PT #### [address] Monocytes/100 WBC (Bld) 4.9 % Normal . [facility] Comment on above: Performed By: #### C BC, PTT, HEPATIC, BMP, LIPASE, PT #### [address] Neutrophils (Bld) [#/Vol] 10.0 10*3/uL High 1.8-7.7 [facility] Comment on above: Performed By: #### C BC, PTT, HEPATIC, BMP, LIPASE, PT #### [address] Neutrophils/100 WBC (Bld) 89.9 % Normal . [facility] Comment on above: Performed By: #### C BC, PTT, HEPATIC, BMP, LIPASE, PT #### [address] NRBC% 0.2 /100{WBC} Normal 0-0.5 [facility] Comment on above: Performed By: #### C BC, PTT, HEPATIC, BMP, LIPASE, PT #### [address] Platelet mean volume (Bld) [Entitic vol] 7.3 fL Normal 6.3-10.7 [facility] Comment on above: Performed By: #### C BC, PTT, HEPATIC, BMP, LIPASE, PT #### [facility] [address] Platelets (Bld) [#/Vol] 291 10*3/uL Normal 150-450 [facility] Comment on above: Performed By: #### C BC, PTT, HEPATIC, BMP, LIPASE, PT #### [facility] [address] RBC (Bld) [#/Vol] 4.66 10*6/uL Normal 3.60-5.00 [facility] Comment on above: Performed By: #### C BC, PTT, HEPATIC, BMP, LIPASE, PT #### [facility] [address] WBC (Bld) [#/Vol] 11.1 10*3/uL Normal 3.8-11.6 [facility] Comment on above: Performed By: #### C BC, PTT, HEPATIC, BMP, LIPASE, PT #### [address] Creatinine [Mass/volume] in Serum or PlasmaOrdered By: Rabia Murrieta on 03-25-2023 Creatinine [Mass/Vol] 0.71 mg/dL 0.60-1.20 [facility] Dipstick and Microscopicon 1 05-25-2022 Appearance (U) Cloudy Critically abnormal Clear [facility] Comment on above: Order Comment: Name Collection Type:: Clean-Voided Midstream Performed By: #### C UU, ADDONUAPLUS, UHCG #### [facility] [address] [place] [address] Bacteria,Urine 2+ High None Seen [facility] Comment on above: Order Comment: Name Collection Type:: Clean-Voided Midstream Performed By: #### C UU, ADDONUAPLUS, UHCG #### [address] Bilirubin,Urine 1+ High Negative [facility] Comment on above: Order Comment: Name Collection Type:: Clean-Voided Midstream Performed By: #### C UU, ADDONUAPLUS, UHCG #### [facility] [address] [place] [address] Color (U) Dark Yellow Critically abnormal Yellow [facility] Comment on above: Order Comment: Name Collection Type:: Clean-Voided Midstream Performed By: #### C UU, ADDONUAPLUS, UHCG #### [facility] [address] [place] [address] Glucose Ql (U) Normal Normal Normal [facility] Comment on above: Order Comment: Name Collection Type:: Clean-Voided Midstream Performed By: #### C UU, ADDONUAPLUS, UHCG #### [facility] [address] [place] [address] Hyaline Casts,Urine 20-49 High 0-1 [facility] Comment on above: Order Comment: Name Collection Type:: Clean-Voided Midstream Performed By: #### C UU, ADDONUAPLUS, UHCG #### [facility] [address] [place] [address] Ketones Ql (U) 1+ High Negative [facility] Comment on above: Order Comment: Name Collection Type:: Clean-Voided Midstream Performed By: #### C UU, ADDONUAPLUS, UHCG #### [facility] [address] [place] [address] Leukocyte esterase Test strip Ql (U) 1+ High Negative [facility] Comment on above: Order Comment: Name Collection Type:: Clean-Voided Midstream Performed By: #### C UU, ADDONUAPLUS, UHCG #### [facility] [address] [place] [address] [place] Mucus,Urine 2+ Critically abnormal [facility] Comment on above: Order Comment: Name Collection Type:: Clean-Voided Midstream Performed By: #### C UU, ADDONUAPLUS, UHCG #### [facility] [address] [place] [address] [place] Nitrite,Urine Negative Normal Negative [facility] Comment on above: Order Comment: Name Collection Type:: Clean-Voided Midstream Performed By: #### C UU, ADDONUAPLUS, UHCG #### [facility] [address] Occult Blood,Urine Negative Normal Negative [facility] Comment on above: Order Comment: Name Collection Type:: Clean-Voided Midstream Performed By: #### C UU, ADDONUAPLUS, UHCG #### [address] Other Casts,Urine None Seen Normal None Seen [facility] Comment on above: Order Comment: Name Collection Type:: Clean-Voided Midstream Performed By: #### C UU, ADDONUAPLUS, UHCG #### [address] pH (U) 6.0 [pH] Normal 5.0-9.0 [facility] Comment on above: Order Comment: Name Collection Type:: Clean-Voided Midstream Performed By: #### C UU, ADDONUAPLUS, UHCG #### [address] Protein (U) [Mass/Vol] 30 mg/dL High Negative [facility] Comment on above: Order Comment: Name Collection Type:: Clean-Voided Midstream Performed By: #### C UU, ADDONUAPLUS, UHCG #### [address] RBC,Urine None Seen Normal 0-4 [facility] Comment on above: Order Comment: Name Collection Type:: Clean-Voided Midstream Performed By: #### C UU, ADDONUAPLUS, UHCG #### [facility] [address] [place] [address] Specificy [place],Urine 1.027 Normal 1.001-1.[address] [facility] Comment on above: Order Comment: Name Collection Type:: Clean-Voided Midstream Performed By: #### C UU, ADDONUAPLUS, UHCG #### [facility] [address] [place] [address] Squamous Epithelial Cell,Urine 10-19 High 0-2 [facility] Comment on above: Order Comment: Name Collection Type:: Clean-Voided Midstream Performed By: #### C UU, ADDONUAPLUS, UHCG #### [facility] [address] [place] [address] Urobilinogen,Urine Normal Normal Normal [facility] Comment on above: Order Comment: Name Collection Type:: Clean-Voided Midstream Performed By: #### C UU, ADDONUAPLUS, UHCG #### [facility] [address] [place] [address] WBC,Urine 20-49 High 0-4 [facility] Comment on above: Order Comment: Name Collection Type:: Clean-Voided Midstream Performed By: #### C UU, ADDONUAPLUS, UHCG #### [facility] [address] [place] [address] Eosinophils Auto (Bld) [#/Vo l]Ordered By: Rabia Murrieta on 03-25-2023 Eosinophils (Bld) [#/Vol] 0.0 10*3/uL 0.0-0.45 [facility] Eosinophils/100 WBC Auto (Bl d)Ordered By: Rabia Murrieta on 03-25-2023 Eosinophils/100 WBC (Bld) 0.0 % . [facility] Erythrocyte distribution wid th Auto (RBC) [Ratio]Ordered By: Rabia Murrieta on 03-25-2023 Erythrocyte distribution width (RBC) [Ratio] 13.2 % 11.9-15.3 [facility] Globulin Calc (S) [Mass/Vol] Ordered By: Rabia Murrieta on 03-25-2023 Globulin (S) [Mass/Vol] 3.4 g/dL [facility] Glucose [Mass/volume] in Ser um or PlasmaOrdered By: Rabia Murrieta on 03-25-2023 Glucose [Mass/Vol] 103 mg/dL 70-100 [facility] Comment on above: ADA recommended refe rence rangeRandom Glucose Reference Range is dependent on time and content of last meal. Glucose of more than 200 mg/dL in a nonstressed, ambulatory subject supports the diagnosis of Diabetes Mellitus. HCG ( test) IA.rapjeremy d Ql (U)Ordered By: Rabia Murrieta on 03-25-2023 HCG ( test) Ql (U) Negative [facility] HCG,Urineon 03-25-2023 Beta HCG ( test) Ql (U) Negative Normal [facility] Comment on above: Order Comment: Name Collection Type:: Clean-Voided Midstream Result Comment: PERF ORMED BY: [place] [address] PATHOLOGIST ACOUSTICAL TILE DRILL PRESS OPERATOR SANDIE MAYES M.D. Performed By: #### C UU, ADDONUAPLUS, CG #### [address] Hematocrit Auto (Bld) [Volum e fraction]Ordered By: Rabia Murrieta on 03-25-2023 Hematocrit (Bld) [Volume fraction] 46.4 % 34.0-46.4 [facility] Hemoglobin [Mass/volume] in BloodOrdered By: Rabia Murrieta on 03-25-2023 Hemoglobin (Bld) [Mass/Vol] 16.0 g/dL 11.8-15.4 [facility] Hepatic Panelon 03-25-2023 Albumin [Mass/Vol] 4.3 g/dL Normal 3.5-5.7 [facility] Comment on above: Performed By: #### C BC, PTT, HEPATIC, BMP, LIPASE, PT #### [facility] [address] [place] [address] Albumin/Globulin [Mass ratio] 1.3 {ratio} Normal [facility] Comment on above: Performed By: #### C BC, PTT, HEPATIC, BMP, LIPASE, PT #### [facility] [address] [place] [address] ALP [Catalytic activity/Vol] 77 U/L Normal 34-104 [facility] Comment on above: Performed By: #### C BC, PTT, HEPATIC, BMP, LIPASE, PT #### [facility] [address] [place] [address] ALT [Catalytic activity/Vol] 69 U/L High 7-52 [facility] Comment on above: Performed By: #### C BC, PTT, HEPATIC, BMP, LIPASE, PT #### [facility] [address] AST [Catalytic activity/Vol] 132 U/L High 13-39 [facility] Comment on above: Performed By: #### C BC, PTT, HEPATIC, BMP, LIPASE, PT #### [facility] [address] Bilirubin [Mass/Vol] 1.9 mg/dL High 0.3-1.0 [facility] Comment on above: Result Comment: Samp les from patients who have taken Naproxen have shown spurious elevation in Total Bilirubin levels. A metabolite of Naproxen, O-desmethylnaproxen, has been shown to interfere with the Jendrassik-Grof method for measuring Total Bilirubin. Performed By: #### C BC, PTT, HEPATIC, BMP, LIPASE, PT #### [facility] [address] Bilirubin,Indirect 1.6 mg/dL Normal [facility] Comment on above: Performed By: #### C BC, PTT, HEPATIC, BMP, LIPASE, PT #### [facility] [address] Bilirubin.indirect [Mass/Vol] 0.30 mg/dL High 0.03-0.18 [facility] Comment on above: Performed By: #### C BC, PTT, HEPATIC, BMP, LIPASE, PT #### [facility] [address] Globulin (S) [Mass/Vol] 3.4 g/dL Normal [facility] Comment on above: Performed By: #### C BC, PTT, HEPATIC, BMP, LIPASE, PT #### [facility] [address] [place] [address] [place] Protein [Mass/Vol] 7.7 g/dL Normal 6.4-8.9 [facility] Comment on above: Performed By: #### C BC, PTT, HEPATIC, BMP, LIPASE, PT #### [facility] [address] INR in Platelet poor plasma by Coagulation assayOrdered By: Rabia Murrieta on 03-25-2023 INR Coag (PPP) [Relative time] 1.0 {INR} [facility] Comment on above: INR Therapeutic Rang [...] on 03-25-2023 Ketones (U) [Mass/Vol] 1+ Negative [facility] Leukocytes [#/volume] correc james for nucleated erythrocytes in Blood by Automated counOrdered By: Rabia Murrieta on 03-25-2023 WBC corrected for nucl RBC Auto (Bld) [#/Vol] 11.1 10*3/uL 3.8-11.6 [facility] Lipaseon 03-25-2023 Lipase [Catalytic activity/Vol] 89.0 U/L High 11.0-82.0 [facility] Comment on above: Result Comment: PERF ORMED BY: [place] [address] PATHOLOGIST ACOUSTICAL TILE DRILL PRESS OPERATOR SANDIE MAYES M.D. Performed By: #### C BC, PTT, HEPATIC, BMP, LIPASE, PT #### [facility] [address] [place] [address] Lipase [Enzymatic activity/v olume] in Serum or PlasmaOrdered By: Rabia Murrieta on 03-25-2023 Lipase [Catalytic activity/Vol] 89.0 U/L 11.0-82.0 [facility] Lymphocytes Auto (Bld) [#/Vo l]Ordered By: Rabia Murrieta on 03-25-2023 Lymphocytes (Bld) [#/Vol] 0.5 10*3/uL 1.00-4.8 [facility] Lymphocytes/100 WBC Auto (Bl d)Ordered By: Rabia Murrieta on 03-25-2023 Lymphocytes/100 WBC (Bld) 4.9 % . [facility] MCH Auto (RBC) [Entitic mass ]Ordered By: Rabia Murrieta on 03-25-2023 MCH (RBC) [Entitic mass] 34.3 pg 24.7-34.3 [facility] MCHC Auto (RBC) [Mass/Vol]Or dered By: Rabia Murrieta on 03-25-2023 MCHC (RBC) [Mass/Vol] 34.4 g/dL 32.0-35.0 [facility] MCV Auto (RBC) [Entitic vol] Ordered By: Rabia Murrieta on 03-25-2023 MCV (RBC) [Entitic vol] 99.7 fL 80-100 [facility] Monocyte distribution width [Entitic volume] in Blood by AutomatedOrdered By: Rabia Murrieta on 03-25-2023 Monocyte distribution width Auto (Bld) [Entitic vol] 18.22 % 0.00-20.00 [facility] Monocytes Auto (Bld) [#/Vol] Ordered By: Rabia Murrieta on 03-25-2023 Monocytes (Bld) [#/Vol] 0.5 10*3/uL 0.0-0.8 [facility] Monocytes/100 WBC Auto (Bld) Ordered By: Rabia Murrieta on 03-25-2023 Monocytes/100 WBC (Bld) 4.9 % . [facility] Mucus LM Ql (Urine sed)Order ed By: Rabia Murrieta on 03-25-2023 Mucus Ql (Urine sed) 2+ [LPF] [facility] Neutrophils Auto (Bld) [#/Vo l]Ordered By: Rabia Murrieta on 03-25-2023 Neutrophils (Bld) [#/Vol] 10.0 10*3/uL 1.8-7.7 [facility] Neutrophils/100 WBC Auto (Bl d)Ordered By: Rabia Murrieta on 03-25-2023 Neutrophils/100 WBC (Bld) 89.9 % . [facility] Nitrite Test strip Ql (U)Ord ered By: Rabia Murrieta on 03-25-2023 Nitrite Ql (U) Negative Negative [facility] No Panel InformationOrdered By: Rabia Murrieta on 03-25-2023 Estimated GFR (CKD-EPI) > 60.0 mL/Min [facility] Creatinine Clearance (Chem 99.09 [facility] Nucleated erythrocytes [Pres ence] in Blood by Automated countOrdered By: Rabia Murrieta on 03-25-2023 Nucleated RBC Auto Ql (Bld) 0.2 /100{WBC} 0-0.5 [facility] Partial Thromboplastin Timeo n 03-25-2023 aPTT Coag (Bld) [Time] 29.8 s Normal 25.1-36.5 [facility] Comment on above: Result Comment: A he matocrit value greater than 55% may lead to inaccurate results in coagulation testing. Patients having hematocrit values >55% require a special collection tube for coagulation studies. Please contact the laboratory at [phone] for redraw instructions. PERFORMED BY: [place] [address] PATHOLOGIST ACOUSTICAL TILE DRILL PRESS OPERATOR SANDIE MAYES M.D. Performed By: #### C BC, PTT, HEPATIC, BMP, LIPASE, PT #### [address] Platelet mean volume Auto (B ld) [Entitic vol]Ordered By: Rabia Murrieta on 03-25-2023 Platelet mean volume (Bld) [Entitic vol] 7.3 fL 6.3-10.7 [facility] Platelets Auto (Bld) [#/Vol] Ordered By: Rabia Murrieta on 03-25-2023 Platelets (Bld) [#/Vol] 291 10*3/uL 150-450 [facility] Potassium [Moles/volume] in Serum or PlasmaOrdered By: Rabia Murrieta on 03-25-2023 Potassium [Moles/Vol] 4.5 mmol/L 3.5-5.1 [facility] Protein Auto test strip (U) [Mass/Vol]Ordered By: Rabia Murrieta on 03-25-2023 Protein (U) [Mass/Vol] 30 mg/dL Negative [facility] Protein [Mass/volume] in Ser um or PlasmaOrdered By: Rabia Murrieta on 03-25-2023 Protein [Mass/Vol] 7.7 g/dL 6.4-8.9 [facility] Prothrombin Time INRon 03-25 INR Coag (PPP) [Relative time] 1.0 {INR} Normal [facility] Comment on above: Result Comment: INR [...] BC, PTT, HEPATIC, BMP, LIPASE, PT #### [facility] [address] [phone] [facility] PT Coag (PPP) [Time] 11.7 s Normal 9.0-12.9 [facility] Comment on above: Result Comment: A he matocrit value greater than 55% may lead to inaccurate results in coagulation testing. Patients having hematocrit values >55% require a special collection tube for coagulation studies. Please contact the laboratory at [phone] for redraw instructions. Performed By: #### C BC, PTT, HEPATIC, BMP, LIPASE, PT #### [facility] [address] [phone] [facility] Prothrombin time (PT)Ordered By: Rabia Murrieta on 03-25-2023 PT Coag (PPP) [Time] 11.7 s 9.0-12.9 [facility] Comment on above: A hematocrit value g reater than 55% may lead to inaccurate results in coagulation testing. Patients having hematocrit values >55% require a special collection tube for coagulation studies. Please contact the laboratory at [phone] for redraw instructions. RBC Auto (Bld) [#/Vol]Ordere d By: Rabia Murrieta on 03-25-2023 RBC (Bld) [#/Vol] 4.66 10*6/uL 3.60-5.00 [facility] Serum or plasma albumin/glob ulin mass ratioOrdered By: Rabia Murrieta on 03-25-2023 Albumin/Globulin [Mass ratio] 1.3 {ratio} [facility] Serum or plasma anion gap de terminationOrdered By: Rabia Murrieta on 03-25-2023 Anion gap [Moles/Vol] 22.6 mmol/L 6.0-15.[address] [facility] Serum or plasma non-glucuron idated bilirubin measurement (mass/volume)Ordered By: Rabia Murrieta on 03-25-2023 Bilirubin.indirect [Mass/Vol] 1.6 mg/dL [facility] Sodium [Moles/volume] in Ser um or PlasmaOrdered By: Rabia Murrieta on 03-25-2023 Sodium [Moles/Vol] 141 mmol/L 136-145 [facility] Specific gravity Auto test s trip (U) [Rel density]Ordered By: Rabia Murrieta on 03-25-2023 Specific gravity (U) [Rel density] 1.027 1.001-1.[address] [facility] Squamous epithelial cells de tection in urine sediment by light microscopyOrdered By: Rabia Murrieta on 03-25-2023 Epithelial cells.squamous LM Ql (Urine sed) 10-19 [HPF] 0-2 [facility] US gall bladderon 03-25-2023 US gall bladder [facility] [place] [address] Ultrasound Report Signed Patient: Yane Wallace MR#: [id number] 84 : 1995 Acct:[id number] Age/Sex: 27 / F ADM Date: 03/25/23 Loc: ER Room: Type[facility] ER Attending Dr: Ordering Provider: Rabia Murrieta DO Date of Service: 03/25/23 US/US gall bladder: ruq pain Copies to: Rabia Murrieta DO Gallbladder ultrasound HISTORY: Abdominal pain and vomiting for a few months. COMPARISON: None Negative ultrasound Itdwell's sign reported. COMMON BILE DUCT: Normal caliber. [...] Adair Rodríguez M.D.03/25/2023 8:38 PM Dictation Location: [place] [address] Tech: Tiffany Day Transcribed By: PWS 03/25/232037 Dictated By: Adair Rodríguez DO 03/25/232034 Signed By: 03/25/232037 Normal [facility] Urea nitrogen [Mass/volume] in Serum or PlasmaOrdered By: Rabia Murrieta on 03-25-2023 Urea nitrogen [Mass/Vol] 6 mg/dL 12-14 [facility] Urine Cultureon 03-25-2023 Bacteria identified Cx Nom (U) ORGANISM: Escherichia coli (O:ESCCOL) Palatine Count 40,000 Aerobic ALCIDES Charge (NMIC56) SUSCEPTIBILITY [...] <4 Tigecycline S <2 Tobramycin S <2 Trimethoprim/Sulfamethoxaz ole S <0.5 S = SUSCEPTIBLE I = [...] RESISTANT TO ALL B-LACTAM DRUGS. PERFORMED BY: [place] [address] PATHOLOGIST ACOUSTICAL TILE DRILL PRESS OPERATOR SANDIE MAYES M.D. Normal [facility] Comment on above: Performed By: #### C BC, PTT, HEPATIC, BMP, LIPASE, PT #### [address] Urine bacteria detection by automated methodOrdered By: Rabia Murrieta on 03-25-2023 Bacteria Auto Ql (U) 2+ None Seen [facility] Urine clarity by refractomet ry automatedOrdered By: Rabia Murrieta on 03-25-2023 Clarity Refractometry automated (U) Cloudy Clear [facility] Urine culture routineOrdered By: Rabia Murrieta on 03-25-2023 Bacteria identified Cx Nom (U) Escherichia coli [facility] Urine glucose measurement by automated test strip (mass/volume)Ordered By: Rabia Murrieta on 03-25-2023 Glucose Auto test strip (U) [Mass/Vol] Normal mg/dL Normal [facility] Urine hemoglobin detection b y automated test stripOrdered By: Rabia Murrieta on 03-25-2023 Hemoglobin Auto test strip Ql (U) Negative Negative [facility] Urine leukocyte esterase det ection by automated test stripOrdered By: Rabia Murrieta on 03-25-2023 Leukocyte esterase Auto test strip Ql (U) 1+ Negative [facility] Urobilinogen Auto test strip (U) [Mass/Vol]Ordered By: Rabia Murrieta on 03-25-2023 Urobilinogen (U) [Mass/Vol] Normal mg/dL Normal [facility] WBC Auto (Bld) [#/Vol]Ordere d By: Rabia Murrieta on 03-25-2023 WBC (Bld) [#/Vol] 11.1 10*3/uL 3.8-11.6 [facility] pH Auto test strip (U)Ordere d By: Rabia Murrieta on 03-25-2023 pH (U) 6.0 [pH] 5.0-9.0 [facility] Quick Strepon 02-24-2023 S. pyogenes Org specific cx Ql (Throat) Negative [employer] Other Quick Strep [employer] Other SARS-CoV-2 (COVID-19) RNA NA A+probe Ql (Resp)on 02-24-2023 SARS-CoV-2 (COVID-19) RNA IAN+probe Ql (Unsp spec) Negative [employer] Other COVID + FLU Quick Testingon 12-02-2022 SARS-CoV-2 (COVID-19) RNA IAN+probe Ql (Unsp spec) Negative [employer] Other COVID + FLU Quick Testing Negative [employer] Other Quick Strepon 12-02-2022 S. pyogenes Org specific cx Ql (Throat) Negative [employer] [facility] [employer] Other Quick Strep [employer] [facility] [employer] Other CBC AUTO DIFFon 08-21-2022 BASO # 0.1 103/ul Normal 0.0-0.1 [facility] Comment on above: Performed By: #### C BC #### [facility] [address] [place] [address] Dr. Alexia Gallagher Basophils/100 WBC (Bld) 0.4 % Normal 0.2-2.0 [facility] Comment on above: Performed By: #### C BC #### [facility] [address] [place] [address] Dr. Alexia Gallagher EO # 0.0 103/ul Normal 0.0-0.7 [facility] Comment on above: Performed By: #### C BC #### [facility] [address] [place] [address] Dr. Alexia Gallagher Eosinophils/100 WBC (Bld) 0.1 % Critically low 0.9-7.0 [facility] Comment on above: Performed By: #### C BC #### [facility] [address] [place] [address] Dr. Alexia Gallagher Erythrocyte distribution width (RBC) [Ratio] 12.8 % Normal 11.0-15.0 [facility] Comment on above: Performed By: #### C BC #### [facility] [address] [place] [address] Dr. Alexia Gallagher Hematocrit (Bld) [Volume fraction] 47.3 % Normal 36.0-48.0 [facility] Comment on above: Performed By: #### C BC #### [facility] [address] [place] [address] Dr. Alexia Gallagher Hemoglobin (Bld) [Mass/Vol] 16.0 g/dL Normal 12.0-16.0 [facility] Comment on above: Performed By: #### C BC #### [facility] [address] [place] [address] Dr. Alexia Gallagher IG # 0.06 10e3/ul Critically high 0.00-0.03 [facility] Comment on above: Performed By: #### C BC #### [facility] [address] [place] [address] Dr. Alexia Gallagher IG % 0.4 % Normal 0.0-0.5 [facility] Comment on above: Performed By: #### C BC #### [facility] [address] [place] [address] Dr. Alexia Gallagher LYMPH # 0.8 103/ul Critically low 1.2-3.8 [facility] Comment on above: Performed By: #### C BC #### [facility] [address] [place] [address] Dr. Alexia Gallagher Lymphocytes/100 WBC (Bld) 5.1 % Critically low 20.5-60.0 [facility] Comment on above: Performed By: #### C BC #### [facility] [address] [place] [address] Dr. Alexia Gallagher MANUAL DIFF REQ NO Normal [facility] Comment on above: Performed By: #### C BC #### [facility] [address] [place] [address] Dr. Alexia Gallagher MCH (RBC) [Entitic mass] 33.0 pg Normal 26.7-34.0 [facility] Comment on above: Performed By: #### C BC #### [facility] [address] [place] [address] Dr. Alexia Gallagher MCHC (RBC) [Mass/Vol] 33.8 g/dL Normal 29.9-35.2 [facility] Comment on above: Performed By: #### C BC #### [facility] [address] [place] [address] Dr. Alexia Gallagher MCV (RBC) [Entitic vol] 97.5 fL Normal 81.0-99.0 [facility] Comment on above: Performed By: #### C BC #### [facility] [address] [place] [address] Dr. Alexia Gallagher MONO # 1.0 103/ul Critically high 0.3-0.8 [facility] Comment on above: Performed By: #### C BC #### [facility] [address] [place] [address] Dr. Alexia Gallagher Monocytes/100 WBC (Bld) 6.4 % Normal 1.7-12.0 [facility] Comment on above: Performed By: #### C BC #### [facility] [address] [place] [address] Dr. Alexia Gallagher NEUT # 14.3 103/ul Critically high 1.4-6.5 [facility] Comment on above: Performed By: #### C BC #### [facility] [address] [place] [address] Dr. Alexia Gallagher Neutrophils/100 WBC (Bld) 87.6 % Critically high 43.0-75.0 [facility] Comment on above: Performed By: #### C BC #### [facility] [address] [place] [address] Dr. Alexia Gallagher Platelet mean volume (Bld) [Entitic vol] 9.4 fL Critically low 9.5-13.5 [facility] Comment on above: Performed By: #### C BC #### [facility] [address] [place] [address] Dr. lAexia Gallagher PLT 215 103/ul Normal 150-450 [facility] Comment on above: Performed By: #### C BC #### [facility] [address] [place] [address] Dr. Alexia Gallagher RBC 4.85 106/ul Normal 4.20-5.40 [facility] Comment on above: Performed By: #### C BC #### [facility] [address] [place] [address] Dr. Alexia Gallagher WBC 16.3 103/ul Critically high 4.0-11.0 [facility] Comment on above: Performed By: #### C BC #### [facility] [address] [place] [address] Dr. Alexia Gallagher Covid-19 PCR (CVDTB)on SARS-CoV-2 (COVID-19) RNA IAN+probe Ql (Unsp spec) Not detected Normal NOT DETECTED [facility] Comment on above: Result Comment: This test is not yet approved or cleared by the [place] FDA. When there are no FDA-approved or cleared tests available, and other criteria are met, FDA can make tests available under an emergency access mechanism called an Emergency Use Authorization (EUA). The EUA for this test is supported by the [employer] Worker Supervisor of Health and Human Service's (HHS's) declaration [...] consistent with SARS-CoV-2. Performed By: #### C VDTBH #### [facility] [address] [place] [address] Dr. Alexia Gallagher ER URINE PROFILEon 3 Bilirubin Ql (U) Negative Normal NEGATIVE [facility] Comment on above: Performed By: #### E RUR #### [facility] [address] [place] [address] Dr. Alexia Gallagher Clarity (U) CLEAR Normal CLEAR [facility] Comment on above: Performed By: #### E RUR #### [facility] [address] [place] [address] Dr. Alexia Gallagher Color (U) YELLOW Normal YELLOW [facility] Comment on above: Performed By: #### E RUR #### [facility] [address] [place] [address] Dr. Alexia HERNANDEZ A micrscopic examina tion will be performed if indicated. Normal [facility] Comment on above: Performed By: #### E RUR #### [facility] [address] [place] [address] Dr. Alexia Gallagher Glucose Ql (U) Negative Normal NEGATIVE [facility] Comment on above: Performed By: #### E RUR #### [facility] [address] [place] [address] Dr. Alexia Gallagher Hemoglobin Ql (U) Negative Normal NEGATIVE [facility] Comment on above: Performed By: #### E RUR #### [facility] [address] [place] [address] Dr. Alexia Gallagher Ketones Ql (U) TRACE Abnormal NEGATIVE [facility] Comment on above: Performed By: #### E RUR #### [facility] [address] [place] [address] Dr. Alexia Gallagher LEUKOCYTES Negative Normal NEGATIVE [facility] Comment on above: Performed By: #### E RUR #### [facility] [address] [place] [address] Dr. Alexia Gallagher Nitrite Ql (U) Negative Normal NEGATIVE [facility] Comment on above: Performed By: #### E RUR #### [facility] [address] [place] [address] Dr. Alexia Gallagher pH (U) 8.5 [pH] Normal 5-9 [facility] Comment on above: Performed By: #### E RUR #### [facility] [address] [place] [address] Dr. Alexia Gallagher SPEC GRAVITY 1.010 Normal 1.005-<=1. 025 [facility] Comment on above: Performed By: #### E RUR #### [facility] [address] [place] [address] Dr. Alexia Gallagher UA PROTEIN TRACE Normal NEGATIVE/ TRACE [facility] Comment on above: Performed By: #### E RUR #### [facility] [address] [place] [address] Dr. Alexia Gallagher UR MICRO IND NOT INDICATED Normal [facility] Comment on above: Performed By: #### E RUR #### [facility] [address] [place] [address] Dr. Alexia Gallagher Urobilinogen Qn (U) 1.0 {Gilberto'U}/dL Normal 0.2 - 1. 0 [facility] Comment on above: Performed By: #### E RUR #### [facility] [address] [place] [address] Dr. Alexia Gallagher INFLUENZA A AND B AGon 08-21 INFLUANEGH SEE BELOW Normal [facility] Comment on above: Result Comment: Nega tive for Flu A protein angiten. Infection due to Flu A cannot be ruled out. Flu A angiten in the sample may be below the detection limit of the test. Performed By: #### I NFLUAB #### [facility] [address] [place] [address] Dr. Alexia Gallagher INFLUBNEGH SEE BELOW Normal [facility] Comment on above: Result Comment: Nega tive for Flu B protein antigen. Infection due to Flu B cannot be ruled out. Flu B antigen in the sample may be below the detection limit of the test. Performed By: #### I NFLUAB #### [facility] [address] [place] [address] Dr. Alexia Gallagher INFLUENZA A AG Negative Normal NEGATIVE SEE COMMENT [facility] Comment on above: Performed By: #### I NFLUAB #### [facility] [address] [place] [address] Dr. Alexia Gallagher INFLUENZA B AG Negative Normal NEGATIVE SEE COMMENT [facility] Comment on above: Performed By: #### I NFLUAB #### [facility] [address] [place] [address] Dr. Alexia Gallagher LIPASEon 08-21-2022 Lipase [Catalytic activity/Vol] 96.0 U/L Normal 73.0-393.0 [facility] Comment on above: Performed By: #### C MP, LIPA #### [facility] [address] [place] [address] Dr. Alexia Gallagher PREG HCG QUALon 08-21-2022 , QUAL Negative Normal NEGATIVE [facility] Comment on above: Performed By: #### P REG #### [facility] [address] [place] [address] Dr. Alexia Gallagher PROF 14(COMP METB)on 023 Albumin [Mass/Vol] 4.1 g/dL Normal 3.4-5.0 [facility] Comment on above: Performed By: #### C MP, LIPA #### [facility] [address] [place] [address] Dr. Alexia Gallagher Albumin/Globulin [Mass ratio] 1.0 {ratio} Normal [facility] Comment on above: Performed By: #### C MP, LIPA #### [facility] [address] [place] [address] Dr. Alexia Gallagher ALP [Catalytic activity/Vol] 97 U/L Normal 46-116 [facility] Comment on above: Performed By: #### C MP, LIPA #### [facility] [address] [place] [address] Dr. Alexia Gallagher ALT [Catalytic activity/Vol] 109 U/L Critically high 14-59 [facility] Comment on above: Performed By: #### C MP, LIPA #### [facility] [address] [place] [address] Dr. Alexia Gallagher Anion gap [Moles/Vol] 18.3 mmol/L Normal [facility] Comment on above: Performed By: #### C MP, LIPA #### [facility] [address] [place] [address] Dr. Alexia Gallagher AST [Catalytic activity/Vol] 101 U/L Critically high 15-37 [facility] Comment on above: Performed By: #### C MP, LIPA #### [facility] [address] [place] [address] Dr. Alexia Gallagher Bilirubin [Mass/Vol] 2.3 mg/dL Critically high 0.2-1.0 [facility] Comment on above: Performed By: #### C MP, LIPA #### [facility] [address] [place] [address] Dr. Alexia Gallagher Calcium [Mass/Vol] 9.6 mg/dL Normal 8.5-10.1 [facility] Comment on above: Performed By: #### C MP, LIPA #### [facility] [address] [place] [address] Dr. Alexia Gallagher Chloride [Moles/Vol] 100 mmol/L Normal 98-107 [facility] Comment on above: Performed By: #### C MP, LIPA #### [facility] [address] [place] [address] Dr. Alexia Gallagher CO2 [Moles/Vol] 25.9 mmol/L Normal 21.0-32.0 [facility] Comment on above: Performed By: #### C MP, LIPA #### [facility] [address] [place] [address] Dr. Alexia Gallagher Creatinine [Mass/Vol] 0.93 mg/dL Normal 0.55-1.02 [facility] Comment on above: Performed By: #### C MP, LIPA #### [facility] [address] [place] [address] Dr. Alexia Gallagher EGFR-AF SAMMARINESE >60 Normal >=60 [facility] Comment on above: Performed By: #### C MP, LIPA #### [facility] [address] [place] [address] Dr. Alexia Gallagher EGFR-NON AF SAMMARINESE >60 Normal >=60 [facility] Comment on above: Performed By: #### C MP, LIPA #### [facility] [address] [place] [address] Dr. Alexia Gallagher Globulin (S) [Mass/Vol] 4.0 g/dL Normal [facility] Comment on above: Performed By: #### C MP, LIPA #### [facility] [address] [place] [address] Dr. Alexia Gallagher Glucose [Mass/Vol] 108 mg/dL Critically high 74-[address] [facility] Comment on above: Performed By: #### C MP, LIPA #### [facility] [address] [place] [address] Dr. Alexia Gallagher Potassium [Moles/Vol] 4.2 mmol/L Normal 3.5-5.1 [facility] Comment on above: Performed By: #### C MP, LIPA #### [facility] [address] [place] [address] Dr. Alexia Gallagher Protein [Mass/Vol] 8.1 g/dL Normal 6.4-8.2 [facility] Comment on above: Performed By: #### C MARLIN, LIPA #### [facility] [address] [place] [address] Dr. Alexia Gallagher Sodium [Moles/Vol] 140 mmol/L Normal 136-145 [facility] Comment on above: Performed By: #### C MARLIN, LIPA #### [facility] [address] [place] [address] Dr. Alexia Gallagher Urea nitrogen [Mass/Vol] 6.0 mg/dL Critically low 7.0-18.0 [facility] Comment on above: Performed By: #### C MP, LIPA #### [facility] [address] [place] [address] Dr. Alexia Gallagher Urea nitrogen/Creatinine [Mass ratio] 6.5 mg/mg Normal [facility] Comment on above: Performed By: #### C MP, LIPA #### [facility] [address] [place] [address] Dr. Alexia Gallagher SYMPTOMATIC COVID-19 ANTIGEN on 08-21-2022 EUA Statement SEE BELOW Normal [facility] Comment on above: Result Comment: This [...] sooner. Performed By: #### C VDAGS #### [facility] [address] [place] [address] Dr. Alexia Gallagher SARS-CoV-2 (COVID-19) RNA IAN+probe Ql (Unsp spec) Negative Normal NEGATIVE [facility] Comment on above: Performed By: #### C VDAGS #### [facility] [address] [place] [address] Dr. Alexia Gallagher CBC AUTO DIFFon 02-22-2022 BASO # 0.1 103/ul Normal 0.0-0.1 [facility] Comment on above: Performed By: #### C MP, LIPA #### [facility] [address] [place] [address] Dr. Alexia Gallagher Basophils/100 WBC (Bld) 0.4 % Normal 0.2-2.0 [facility] Comment on above: Performed By: #### C MP, LIPA #### [facility] [address] [place] [address] Dr. Alexia Gallagher EO # 0.0 103/ul Normal 0.0-0.7 [facility] Comment on above: Performed By: #### C MP, LIPA #### [facility] [address] [place] [address] Dr. Alexia Gallagher Eosinophils/100 WBC (Bld) 0.0 % Critically low 0.9-7.0 [facility] Comment on above: Performed By: #### C MP, LIPA #### [facility] [address] [address] [address] Alexia Gallagher Erythrocyte distribution width (RBC) [Ratio] 12.9 % Normal 11.0-15.0 [facility] Comment on above: Performed By: #### C MP, LIPA #### [facility] [address] [address] [address] Alexia Gallagher Hematocrit (Bld) [Volume fraction] 47.4 % Normal 36.0-48.0 [facility] Comment on above: Performed By: #### C MP, LIPA #### [facility] [address] [place] [address] Dr. Alexia Gallagher Hemoglobin (Bld) [Mass/Vol] 15.5 g/dL Normal 12.0-16.0 [facility] Comment on above: Performed By: #### C MP, LIPA #### [facility] [address] [place] [address] Dr. Alexia Gallagher IG # 0.08 10e3/ul Critically high 0.00-0.03 [facility] Comment on above: Performed By: #### C MP, LIPA #### [facility] [address] [place] [address] Dr. Alexia Gallagher IG % 0.6 % Critically high 0.0-0.5 [facility] Comment on above: Performed By: #### C MP, LIPA #### [facility] [address] [place] [address] Dr. Alexia Gallagher LYMPH # 0.7 103/ul Critically low 1.2-3.8 [facility] Comment on above: Performed By: #### C MP, LIPA #### [facility] [address] [address] [address] Alexia Gallagher Lymphocytes/100 WBC (Bld) 4.9 % Critically low 20.5-60.0 [facility] Comment on above: Performed By: #### C MP, LIPA #### [facility] [address] [place] [address] Dr. Alexia Gallagher MANUAL DIFF REQ NO Normal [facility] Comment on above: Performed By: #### C MP, LIPA #### [facility] [address] [place] [address] Dr. Alexia Gallagher MCH (RBC) [Entitic mass] 32.6 pg Normal 26.7-34.0 [facility] Comment on above: Performed By: #### C MP, LIPA #### [facility] [address] [place] [address] Dr. Alexia Gallagher MCHC (RBC) [Mass/Vol] 32.7 g/dL Normal 29.9-35.2 [facility] Comment on above: Performed By: #### C MP, LIPA #### [facility] [address] [place] [address] Dr. Alexia Gallagher MCV (RBC) [Entitic vol] 99.6 fL Critically high 81.0-99.0 [facility] Comment on above: Performed By: #### C MP, LIPA #### [facility] [address] [place] [address] Dr. Alexia Gallagher MONO # 0.4 103/ul Normal 0.3-0.8 [facility] Comment on above: Performed By: #### C MP, LIPA #### [facility] [address] [place] [address] Dr. Alexia Gallagher Monocytes/100 WBC (Bld) 3.0 % Normal 1.7-12.0 [facility] Comment on above: Performed By: #### C MP, LIPA #### [facility] [address] [place] [address] Dr. Alexia Gallagher NEUT # 12.2 103/ul Critically high 1.4-6.5 [facility] Comment on above: Performed By: #### C MP, LIPA #### [facility] [address] [place] [address] Dr. Alexia Gallagher Neutrophils/100 WBC (Bld) 91.1 % Critically high 43.0-75.0 [facility] Comment on above: Performed By: #### C MP, LIPA #### [facility] [address] [place] [address] Dr. Alexia Gallagher Platelet mean volume (Bld) [Entitic vol] 9.7 fL Normal 9.5-13.5 [facility] Comment on above: Performed By: #### C MP, LIPA #### [facility] [address] [address] [address] Alexia Gallagher PLT 265 103/ul Normal 150-450 [facility] Comment on above: Performed By: #### C MP, LIPA #### [facility] [address] [address] [address] Alexia Gallagher RBC 4.76 106/ul Normal 4.20-5.40 [facility] Comment on above: Performed By: #### C MP, LIPA #### [facility] [address] [place] [address] Dr. Alexia Gallagher WBC 13.4 103/ul Critically high 4.0-11.0 [facility] Comment on above: Performed By: #### C MP, LIPA #### [facility] [address] [place] [address] Dr. Alexia Gallagher ER URINE PROFILEon 2 Bilirubin Ql (U) Negative Normal NEGATIVE [facility] Comment on above: Performed By: #### U MICRO, PREGU, ERUR #### [facility] [address] [place] [address] Dr. Alexia Gallagher Clarity (U) CLEAR Normal CLEAR [facility] Comment on above: Performed By: #### U MICRO, PREGU, ERUR #### [facility] [address] [place] [address] Dr. Alexia Gallagher Color (U) YELLOW Normal YELLOW [facility] Comment on above: Performed By: #### U MICRO, PREGU, ERUR #### [facility] [address] [place] [address] Dr. Alexia HERNANDEZ A micrscopic examina tion will be performed if indicated. Normal [facility] Comment on above: Performed By: #### U MICRO, PREGU, ERUR #### [facility] [address] [place] [address] Dr. Alexia Gallagher Glucose Ql (U) Negative Normal NEGATIVE [facility] Comment on above: Performed By: #### U MICRO, PREGU, ERUR #### [facility] [address] [address] [address] Alexia Gallagher Hemoglobin Ql (U) TRACE-INTACT Abnormal NEGATIVE [facility] Comment on above: Performed By: #### U MICRO, PREGU, ERUR #### [facility] [address] [address] [address] Alexia Gallagher Ketones Ql (U) 15 mg/dl Abnormal NEGATIVE [facility] Comment on above: Performed By: #### U MICRO, PREGU, ERUR #### [facility] [address] [address] [address] Alexia Gallagher LEUKOCYTES Negative Normal NEGATIVE [facility] Comment on above: Performed By: #### U MICRO, PREGU, ERUR #### [facility] [address] [address] [address] Alexia Gallagher Nitrite Ql (U) Negative Normal NEGATIVE [facility] Comment on above: Performed By: #### U MICRO, PREGU, ERUR #### [facility] [address] [address] [address] Alexia Gallagher pH (U) 5.5 [pH] Normal 5-9 [facility] Comment on above: Performed By: #### U MICRO, PREGU, ERUR #### [facility] [address] [address] [address] Alexia Gallagher SPEC GRAVITY 1.030 Abnormal 1.005-<=1. 025 [facility] Comment on above: Performed By: #### U MICRO, PREGU, ERUR #### [facility] [address] [address] [address] Alexia Gallagher UA PROTEIN TRACE Normal NEGATIVE/ TRACE [facility] Comment on above: Performed By: #### U MICRO, PREGU, ERUR #### [facility] [address] [address] [address] Alexia Gallagher UR MICRO IND INDICATED Normal [facility] Comment on above: Performed By: #### U MICRO, PREGU, ERUR #### [facility] [address] [place] [address] Dr. Alexia Gallagher Urobilinogen Qn (U) 0.2 {Gilberto'U}/dL Normal 0.2 - 1. 0 [facility] Comment on above: Performed By: #### U MICRO, PREGU, ERUR #### [facility] [address] [place] [address] Dr. Alexia Gallagher LIPASEon 02-22-2022 Lipase [Catalytic activity/Vol] 160.0 U/L Normal 73.0-393.0 [facility] Comment on above: Performed By: #### C MP, LIPA #### [facility] [address] [place] [address] Dr. Alexia Gallagher URon 02-22-2022 , QUAL Negative Normal NEGATIVE [facility] Comment on above: Performed By: #### U MICRO, PREGU, ERUR #### [facility] [address] [place] [address] Dr. Alexia Gallagher PROF 14(COMP METB)on 022 Albumin [Mass/Vol] 4.2 g/dL Normal 3.4-5.0 [facility] Comment on above: Performed By: #### C MP, LIPA #### [facility] [address] [place] [address] Dr. Alexia Gallagher Albumin/Globulin [Mass ratio] 1.0 {ratio} Normal [facility] Comment on above: Performed By: #### C MP, LIPA #### [facility] [address] [place] [address] Dr. Alexia Gallagher ALP [Catalytic activity/Vol] 70 U/L Normal 46-116 [facility] Comment on above: Performed By: #### C MP, LIPA #### [facility] [address] [place] [address] Dr. Alexia Gallagher ALT [Catalytic activity/Vol] 121 U/L Critically high 14-59 [facility] Comment on above: Performed By: #### C MP, LIPA #### [facility] [address] [place] [address] Dr. Alexia Gallagher Anion gap [Moles/Vol] 24.3 mmol/L Normal [facility] Comment on above: Performed By: #### C MP, LIPA #### [facility] [address] [place] [address] Dr. Alexia Gallagher AST [Catalytic activity/Vol] 115 U/L Critically high 15-37 [facility] Comment on above: Performed By: #### C MP, LIPA #### [facility] [address] [place] [address] Dr. Alexia Gallagher Bilirubin [Mass/Vol] 1.4 mg/dL Critically high 0.2-1.0 [facility] Comment on above: Performed By: #### C MP, LIPA #### [facility] [address] [place] [address] Dr. Alexia Gallagher Calcium [Mass/Vol] 9.7 mg/dL Normal 8.5-10.1 [facility] Comment on above: Performed By: #### C MP, LIPA #### [facility] [address] [place] [address] Dr. Alexia Gallagher Chloride [Moles/Vol] 100 mmol/L Normal 98-107 [facility] Comment on above: Performed By: #### C MP, LIPA #### [facility] [address] [place] [address] Dr. Alexia Gallagher CO2 [Moles/Vol] 18.8 mmol/L Critically low 21.0-32.0 [facility] Comment on above: Performed By: #### C MP, LIPA #### [facility] [address] [place] [address] Dr. Alexia Gallagher Creatinine [Mass/Vol] 0.88 mg/dL Normal 0.55-1.02 [facility] Comment on above: Performed By: #### C MP, LIPA #### [facility] [address] [place] [address] Dr. Alexia Gallagher EGFR-AF SAMMARINESE >60 Normal >=60 [facility] Comment on above: Performed By: #### C MP, LIPA #### [facility] [address] [address] [address] Alexia Gallagher EGFR-NON AF SAMMARINESE >60 Normal >=60 [facility] Comment on above: Performed By: #### C MP, LIPA #### [facility] [address] [place] [address] Dr. Alexia Gallagher Globulin (S) [Mass/Vol] 4.0 g/dL Normal [facility] Comment on above: Performed By: #### C MP, LIPA #### [facility] [address] [place] [address] Dr. Alexia Gallagher Glucose [Mass/Vol] 55 mg/dL Critically low 74-106 [facility] Comment on above: Performed By: #### C MP, LIPA #### [facility] [address] [place] [address] Dr. Alexia Gallagher Potassium [Moles/Vol] 5.1 mmol/L Normal 3.5-5.1 [facility] Comment on above: Performed By: #### C MP, LIPA #### [facility] [address] [place] [address] Dr. Aelxia Gallagher Protein [Mass/Vol] 8.2 g/dL Normal 6.4-8.2 [facility] Comment on above: Performed By: #### C MP, LIPA #### [facility] [address] [place] [address] Dr. Alexia Gallagher Sodium [Moles/Vol] 138 mmol/L Normal 136-145 [facility] Comment on above: Performed By: #### C MP, LIPA #### [facility] [address] [place] [address] Dr. Alexia Gallagher Urea nitrogen [Mass/Vol] 9.0 mg/dL Normal 7.0-18.0 [facility] Comment on above: Performed By: #### C MP, LIPA #### [facility] [address] [place] [address] Dr. Alexia Gallagher Urea nitrogen/Creatinine [Mass ratio] 10.2 mg/mg Normal [facility] Comment on above: Performed By: #### C MP, LIPA #### [facility] [address] [place] [address] Dr. Alexia Gallagher URINE MICROSCOPIC ONLYon BACTERIA NONE SEEN Normal NONE SEEN [facility] Comment on above: Performed By: #### C MP, LIPA #### [facility] [address] [place] [address] Dr. Alexia Gallagher Bacteria identified Cx Nom (U) NOT INDICATED Normal [facility] Comment on above: Performed By: #### C MP, LIPA #### [facility] [address] [place] [address] Dr. Alexia Gallagher CAST NONE SEEN Normal NONE SEEN [facility] Comment on above: Performed By: #### C MP, LIPA #### [facility] [address] [place] [address] Dr. Alexia Gallagher Crystals LM Nom (Urine sed) NONE SEEN Normal NONE SEEN [facility] Comment on above: Performed By: #### C MP, LIPA #### [facility] [address] [place] [address] Dr. Alexia Gallagher Epithelial cells LM Ql (Urine sed) FEW Abnormal NONE SEEN /RARE [facility] Comment on above: Performed By: #### C MP, LIPA #### [facility] [address] [place] [address] Dr. Alexia Gallagher MUCOUS NONE SEEN Normal NONE SEEN [facility] Comment on above: Performed By: #### C MP, LIPA #### [facility] [address] [place] [address] Dr. Alexia Gallagher RBC 0-2 Normal 0-2 [facility] Comment on above: Performed By: #### C MP, LIPA #### [facility] [address] [place] [address] Dr. Alexia Gallagher WBC NONE SEEN Normal NONE SEEN [facility] Comment on above: Performed By: #### C MP, LIPA #### [facility] [address] [place] [address] Dr. Alexia Gallagher Vital Signs Date Time Vital Sign Value Performing Clinician Facility 01-17-2025 13:07-0400 Diastolic blood pressure 90 mm[Hg] Tiffany Robertson FPGA ENGINEER Work Phone: [facility] 01-17-2025 13:07-0400 Heart rate 84 /min Tiffanyyana Robertson FPGA ENGINEER Work Phone: [facility] 01-17-2025 13:07-0400 Systolic blood pressure 128 mm[Hg] Tiffany Robertson FPGA ENGINEER Work Phone: [facility] 01-07-2025 15:50-0400 Body height 149.86 cm Tiffany Robertson FPGA ENGINEER-C Work Phone: [facility] 01-07-2025 15:50-0400 Body mass index (BMI) [Ratio] 27.2 kg/m2 Tiffany Robertson FPGA ENGINEER-C Work Phone: [facility] 01-07-2025 15:50-0400 Body weight 61.23 kg Tiffanyyana Robertson FPGA ENGINEER-C Work Phone: [facility] 01-07-2025 15:50-0400 Diastolic blood pressure 89 mm[Hg] Tiffanyyana Robertson FPGA ENGINEER-C Work Phone: [facility] 01-07-2025 15:50-0400 Heart rate 101 /min Tiffanyyana Robertson FPGA ENGINEER-C Work Phone: [facility] 01-07-2025 15:50-0400 Systolic blood pressure 121 mm[Hg] Tiffany Robertson FPGA ENGINEER-C Work Phone: [facility] 12-24-2024 10:56-0400 Body height 149.9 cm Efrain SHAW-C Work Phone[facility] 12-24-2024 10:56-0400 Body mass index (BMI) [Ratio] 28.22 kg/m2 Efrain SHAW-C Work Phone: [facility] 12-24-2024 10:56-0400 Body weight 63.37 kg Efrain SHAW-C [facility] 12-24-2024 10:56-0400 Diastolic blood pressure 93 mm[Hg] Efrain Hong PA-C Work Phone: [facility] 12-24-2024 10:56-0400 Heart rate 75 /min Efrain Hong PA-C Work Phone: [facility] 12-24-2024 10:56-0400 Systolic blood pressure 128 mm[Hg] Efrain Hong PA-C Work Phone: [facility] 11-29-2024 10:06-0400 Body mass index (BMI) [Ratio] 26.7 kg/m2 Tiffany Robertson FPGA ENGINEER Work Phone: [facility] 11-29-2024 10:06-0400 Body weight 63.05 kg Tiffany Robertson FPGA ENGINEER Work Phone: [facility] 11-29-2024 10:06-0400 Diastolic blood pressure 88 mm[Hg] Tiffany Robertson FPGA ENGINEER Work Phone: [facility] 11-29-2024 10:06-0400 Heart rate 117 /min Tiffany Robertson FPGA ENGINEER Work Phone: [facility] 11-29-2024 10:06-0400 SaO2% (BldA) [Mass fraction] 99 % Tiffany Robertson FPGA ENGINEER Work Phone: [facility] 11-29-2024 10:06-0400 Systolic blood pressure 128 mm[Hg] Tiffany Robertson FPGA ENGINEER Work Phone: [facility] 10-29-2024 15:02-0400 Body mass index (BMI) [Ratio] 27.28 kg/m2 Kamlesh Bey PMHNP-BC Work Phone: [facility] 10-29-2024 15:02-0400 Body weight 64.41 kg Kamlesh Bey PMHNP-BC Work Phone: [facility] 10-29-2024 15:02-0400 Diastolic blood pressure 64 mm[Hg] Kamlesh Bey PMHNP-BC Work Phone: [facility] 10-29-2024 15:02-0400 Heart rate 67 /min Kamlesh Bey PMHNP-BC Work Phone: [facility] 10-29-2024 15:02-0400 Systolic blood pressure 102 mm[Hg] Kamlesh Bey PMHNP-BC Work Phone: [facility] 09-24-2024 14:54-0400 Body mass index (BMI) [Ratio] 27.08 kg/m2 Kamlesh Bey PMHNP-BC Work Phone: [facility] 09-24-2024 14:54-0400 Body weight 63.96 kg Kamlesh Bey PMHNP-BC Work Phone: [facility] 09-24-2024 14:54-0400 Diastolic blood pressure 84 mm[Hg] Kamlesh Bey PMHNP-BC Work Phone: [facility] 09-24-2024 14:54-0400 Heart rate 84 /min Kamlesh Bey PMHNP-BC Work Phone: [facility] 09-24-2024 14:54-0400 Systolic blood pressure 134 mm[Hg] Kamlesh Bey PMHNP-BC Work Phone: [facility] 08-28-2024 11:00-0400 Body height 153.7 cm Tiffany Robertson FPGA ENGINEER Work Phone: [facility] 08-28-2024 11:00-0400 Body mass index (BMI) [Ratio] 29.27 kg/m2 Tiffany Robertson FPGA ENGINEER Work Phone: [facility] 08-28-2024 11:00-0400 Body weight 69.13 kg Tiffany Robertson NP Work Phone: [facility] 08-28-2024 11:00-0400 Diastolic blood pressure 84 mm[Hg] Tiffany Robertson FPGA ENGINEER Work Phone: [facility] 08-28-2024 11:00-0400 Heart rate 76 /min Tiffany Robertson NP Work Phone: [facility] 08-28-2024 11:00-0400 Systolic blood pressure 134 mm[Hg] Tiffany Amezcuaman DORIAN Work Phone: [facility] 08-27-2024 12:00-0400 Diastolic blood pressure 88 mm[Hg] PHYSICIAN NO [facility] 08-27-2024 12:00-0400 Heart rate 77 /min PHYSICIAN NO [facility] 08-27-2024 12:00-0400 Respiratory rate 18 /min PHYSICIAN NO [facility] 08-27-2024 12:00-0400 SaO2% (BldA) [Mass fraction] 98 % PHYSICIAN NO [facility] 08-27-2024 12:00-0400 Systolic blood pressure 128 mm[Hg] PHYSICIAN NO [facility] 08-27-2024 08:00-0400 Body temperature 98.2 [degF] PHYSICIAN NO [facility] 08-27-2024 06:30-0400 Body weight 67.4 kg PHYSICIAN NO [facility] 08-26-2024 16:51-0400 Body height 149.86 cm PHYSICIAN NO [facility] 08-26-2024 16:10-0400 Body temperature 99.4 [degF] PHYSICIAN NO [facility] 08-26-2024 15:45-0400 Heart rate 98 /min PHYSICIAN NO [facility] 08-26-2024 15:45-0400 Respiratory rate 18 /min PHYSICIAN NO [facility] 08-26-2024 15:45-0400 SaO2% (BldA) [Mass fraction] 96 % PHYSICIAN NO [facility] 08-26-2024 15:30-0400 Diastolic blood pressure 66 mm[Hg] PHYSICIAN NO [facility] 08-26-2024 15:30-0400 Systolic blood pressure 112 mm[Hg] PHYSICIAN NO [facility] 08-26-2024 11:38-0400 Body height 151.13 cm PHYSICIAN NO [facility] 08-26-2024 11:38-0400 Body weight 69.85 kg PHYSICIAN NO [facility] 08-20-2024 12:31-0400 Body mass index (BMI) [Ratio] 29.58 kg/m2 Kamlesh Bey PMHNP-BC Work Phone: [facility] 08-20-2024 12:31-0400 Body weight 69.85 kg Kamlesh Bey PMHNP-BC Work Phone: [facility] 08-20-2024 12:31-0400 Diastolic blood pressure 92 mm[Hg] Kamlesh Bey PMHNP-BC Work Phone: [facility] 08-20-2024 12:31-0400 Heart rate 85 /min Kamlesh Bye PMHNP-BC Work Phone: [facility] 08-20-2024 12:31-0400 Systolic blood pressure 132 mm[Hg] Kamlesh Bey PMHNP-BC Work Phone: [facility] 07-31-2024 15:06-0400 Body height 153.7 cm Christel Colón MD Work Phone: [facility] 07-31-2024 15:06-0400 Body mass index (BMI) [Ratio] 29 kg/m2 Christel Colón MD Work Phone: [facility] 07-31-2024 15:06-0400 Body weight 68.49 kg Christel Colón MD Work Phone: [facility] 07-31-2024 15:06-0400 Diastolic blood pressure 72 mm[Hg] Christel Colón MD Work Phone: [facility] 07-31-2024 15:06-0400 Systolic blood pressure 120 mm[Hg] Christel Colón MD Work Phone: [facility] 07-31-2024 09:03-0400 Body height 153.7 cm Tiffany Robertson FPGA ENGINEER Work Phone: [facility] 07-31-2024 09:03-0400 Body mass index (BMI) [Ratio] 28.97 kg/m2 Tiffany Robertson FPGA ENGINEER Work Phone: [facility] 07-31-2024 09:03-0400 Body weight 68.4 kg Tiffany Khadijah FPGA ENGINEER Work Phone: [facility] 07-31-2024 09:03-0400 Diastolic blood pressure 84 mm[Hg] Tiffanyyana Robertson FPGA ENGINEER Work Phone: [facility] 07-31-2024 09:03-0400 Heart rate 76 /min Tiffany Khadijah FPGA ENGINEER Work Phone: [facility] 07-31-2024 09:03-0400 Systolic blood pressure 124 mm[Hg] Tiffany Khadijah FPGA ENGINEER Work Phone: [facility] 07-23-2024 10:25-0500 Body height 151.13 cm PHYSICIAN NO [facility] 07-23-2024 10:25-0500 Body mass index (BMI) [Ratio] 30.7 kg/m2 PHYSICIAN NO [facility] 07-23-2024 10:25-0500 Body weight 70.3 kg PHYSICIAN NO [facility] 07-19-2024 15:12-0500 Body mass index (BMI) [Ratio] 30.47 kg/m2 Radha Araselibekah CN Work Phone: [facility] 07-19-2024 15:12-0500 Body weight 70.76 kg Radha Florbekah CN Work Phone: [facility] 06-18-2024 10:53-0500 Body height 151.13 cm PHYSICIAN NO [facility] 06-18-2024 10:53-0500 Body mass index (BMI) [Ratio] 30.5 kg/m2 PHYSICIAN NO [facility] 06-18-2024 10:53-0500 Body weight 69.85 kg PHYSICIAN NO [facility] 06-18-2024 10:53-0500 Diastolic blood pressure 77 mm[Hg] PHYSICIAN NO [facility] 06-18-2024 10:53-0500 Heart rate 92 /min PHYSICIAN NO [facility] 06-18-2024 10:53-0500 Systolic blood pressure 122 mm[Hg] PHYSICIAN NO [facility] 06-13-2024 23:13-0500 Diastolic blood pressure 74 mm[Hg] PHYSICIAN NO [facility] 06-13-2024 23:13-0500 Heart rate 111 /min PHYSICIAN NO [facility] 06-13-2024 23:13-0500 Respiratory rate 18 /min PHYSICIAN NO [facility] 06-13-2024 23:13-0500 SaO2% (BldA) [Mass fraction] 94 % PHYSICIAN NO [facility] 06-13-2024 23:13-0500 Systolic blood pressure 126 mm[Hg] PHYSICIAN NO [facility] 06-13-2024 19:28-0500 Body height 151.13 cm PHYSICIAN NO [facility] 06-13-2024 19:28-0500 Body temperature 98 [degF] PHYSICIAN NO [facility] 06-13-2024 19:28-0500 Body weight 71.1 kg PHYSICIAN NO [facility] 03-07-2024 14:30-0400 Diastolic blood pressure 58 mm[Hg] PHYSICIAN NO [facility] 03-07-2024 14:30-0400 Heart rate 72 /min PHYSICIAN NO [facility] 03-07-2024 14:30-0400 Respiratory rate 16 /min PHYSICIAN NO [facility] 03-07-2024 14:30-0400 SaO2% (BldA) [Mass fraction] 97 % PHYSICIAN NO [facility] 03-07-2024 14:30-0400 Systolic blood pressure 102 mm[Hg] PHYSICIAN NO [facility] 03-07-2024 12:00-0400 Body height 149.86 cm PHYSICIAN NO [facility] 03-07-2024 12:00-0400 Body temperature 98.3 [degF] PHYSICIAN NO [facility] 03-07-2024 12:00-0400 Body weight 67 kg PHYSICIAN NO [facility] 08-31-2023 08:45-0400 Diastolic blood pressure 71 mm[Hg] PHYSICIAN NO [facility] 08-31-2023 08:45-0400 Heart rate 67 /min PHYSICIAN NO [facility] 08-31-2023 08:45-0400 Respiratory rate 18 /min PHYSICIAN NO [facility] 08-31-2023 08:45-0400 SaO2% (BldA) [Mass fraction] 98 % PHYSICIAN NO [facility] 08-31-2023 08:45-0400 Systolic blood pressure 102 mm[Hg] PHYSICIAN NO [facility] 08-31-2023 07:13-0400 Body height 149.86 cm PHYSICIAN NO [facility] 08-31-2023 07:13-0400 Body weight 65.77 kg PHYSICIAN NO [facility] 07-29-2023 07:49-0500 Body temperature 98.4 [degF] PHYSICIAN NO [facility] 07-29-2023 07:49-0500 Diastolic blood pressure 89 mm[Hg] PHYSICIAN NO [facility] 07-29-2023 07:49-0500 Heart rate 82 /min PHYSICIAN NO [facility] 07-29-2023 07:49-0500 Respiratory rate 21 /min PHYSICIAN NO [facility] 07-29-2023 07:49-0500 SaO2% (BldA) [Mass fraction] 100 % PHYSICIAN NO [facility] 07-29-2023 07:49-0500 Systolic blood pressure 124 mm[Hg] PHYSICIAN NO [facility] 07-29-2023 06:00-0500 Body weight 70.1 kg PHYSICIAN NO [facility] 07-27-2023 21:15-0500 Body height 149.86 cm PHYSICIAN NO [facility] 06-08-2023 13:00-0500 Body height 152.4 cm Imad Asaagnes Other [facility] 06-08-2023 13:00-0500 Body mass index (BMI) [Ratio] 29.19 kg/m2 Imad Asaad Other [facility] Other 06-08-2023 13:00-0500 Body weight 67.81 kg Imad Asaad Other [facility] 06-08-2023 13:00-0500 Diastolic blood pressure 86 mm[Hg] Imad Asaad Other [facility] 06-08-2023 13:00-0500 Systolic blood pressure 125 mm[Hg] Imad Asaad Other [facility] 05-30-2023 16:00-0500 Body temperature 98.4 [degF] MD Camelia Roger Work Phone: [facility] 05-30-2023 16:00-0500 Diastolic blood pressure 71 mm[Hg] MD Camelia Roger Work Phone: [facility] 05-30-2023 16:00-0500 Heart rate 72 /min MD Camelia Roger Work Phone: [facility] 05-30-2023 16:00-0500 Respiratory rate 16 /min MD Camelia Roger Work Phone: [facility] 05-30-2023 16:00-0500 SaO2% (BldA) [Mass fraction] 98 % MD Camelia Roger Work Phone: [facility] 05-30-2023 16:00-0500 Systolic blood pressure 118 mm[Hg] MD Camelia Roger Work Phone: [facility] 05-30-2023 04:46-0500 Body weight 66.2 kg MD Camelia Roger Work Phone: [facility] 05-29-2023 14:30-0500 Body height 149.86 cm MD Camelia Roger Work Phone: [facility] 05-17-2023 09:15-0500 Diastolic blood pressure 94 mm[Hg] MD Camelia Roger Work Phone: [facility] 05-17-2023 09:15-0500 Heart rate 67 /min MD Camelia Roger Work Phone: [facility] 05-17-2023 09:15-0500 Respiratory rate 16 /min MD Camelia Roger Work Phone: [facility] 05-17-2023 09:15-0500 SaO2% (BldA) [Mass fraction] 100 % MD Camelia Roger Work Phone: [facility] 05-17-2023 09:15-0500 Systolic blood pressure 126 mm[Hg] MD Camelia Roger Work Phone: [facility] 05-17-2023 06:45-0500 Body height 149.86 cm MD Camelia Roger Work Phone: [facility] 05-17-2023 06:45-0500 Body weight 63.5 kg MD Camelia Roger Work Phone: [facility] 04-08-2023 09:20-0500 Body height 152.4 cm Antonio Pompa Other [facility] Other 04-08-2023 09:20-0500 Body mass index (BMI) [Ratio] 27.53 kg/m2 Antonio Pompa Other [facility] Other 04-08-2023 09:20-0500 Body weight 63.96 kg Antonio Pompa Other [facility] Other 04-08-2023 09:20-0500 Diastolic blood pressure 76 mm[Hg] Antonio Pompa Other [facility] Other 04-08-2023 09:20-0500 Systolic blood pressure 117 mm[Hg] Antonio Pompa Other [facility] Other 03-25-2023 23:08-0400 Diastolic blood pressure 79 mm[Hg] MD Camelia Roger Work Phone: [facility] 03-25-2023 23:08-0400 Heart rate 99 /min MD Camelia Roger Work Phone: [facility] 03-25-2023 23:08-0400 Respiratory rate 18 /min MD Camelia Roger Work Phone: [facility] 03-25-2023 23:08-0400 SaO2% (BldA) [Mass fraction] 96 % MD Camelia Roger Work Phone: [facility] 03-25-2023 23:08-0400 Systolic blood pressure 127 mm[Hg] MD Camelia Roger Work Phone: [facility] 03-25-2023 18:38-0400 Body height 149.86 cm MD Camelia Roger Work Phone: [facility] 03-25-2023 18:38-0400 Body temperature 99 [degF] MD Camelia Roger Work Phone: [facility] 03-25-2023 18:38-0400 Body weight 61.3 kg MD Camelia Roger Work Phone: [facility] 02-24-2023 13:45-0400 Body height 152.4 cm Isabella Spencer Other [facility] Other 02-24-2023 13:45-0400 Body mass index (BMI) [Ratio] 27.77 kg/m2 Isabella Spencer Other [facility] Other 02-24-2023 13:45-0400 Body temperature 99.5 [degF] Isabella Spencer Other [facility] Other 02-24-2023 13:45-0400 Body weight 64.5 kg Isabella Spencer Other [facility] Other 02-24-2023 13:45-0400 Diastolic blood pressure 95 mm[Hg] Isabella Spencer Other [facility] Other 02-24-2023 13:45-0400 Respiratory rate 18 /min Isabella Spencer Other [facility] Other 02-24-2023 13:45-0400 SaO2% (BldA) [Mass fraction] 99 % Isabella Spencer Other [facility] Other 02-24-2023 13:45-0400 Systolic blood pressure 137 mm[Hg] Isabella Spencer Other [facility] Other 12-02-2022 16:30-0400 Body height 152.4 cm Isabella Spencer Other [facility] Other 12-02-2022 16:30-0400 Body mass index (BMI) [Ratio] 28.32 kg/m2 Isabella Spencer Other [facility] Other 12-02-2022 16:30-0400 Body temperature 98.5 [degF] Isabella Spencer Other [facility] Other 12-02-2022 16:30-0400 Body weight 65.77 kg Isabella Spencer Other [facility] Other 12-02-2022 16:30-0400 Respiratory rate 18 /min Isabella Spencer Other [facility] Other 12-02-2022 16:30-0400 SaO2% (BldA) [Mass fraction] 97 % Isabella Spencer Other [facility] Other 05-05-2022 12:25-0500 Body height 152.4 cm Tracy Locke Other [facility] Other 05-05-2022 12:25-0500 Body mass index (BMI) [Ratio] 29.68 kg/m2 Tracy Locke Other [facility] Other 05-05-2022 12:25-0500 Body temperature 98.2 [degF] Tracy Locke Other [facility] Other 05-05-2022 12:25-0500 Body weight 68.95 kg Tracy Locke Other [facility] Other 05-05-2022 12:25-0500 Diastolic blood pressure 78 mm[Hg] Tracy Locke Other [facility] Other 05-05-2022 12:25-0500 Respiratory rate 18 /min Tracy Locke Other [facility] Other 05-05-2022 12:25-0500 SaO2% (BldA) [Mass fraction] 100 % Tracy Locke Other [facility] Other 05-05-2022 12:25-0500 Systolic blood pressure 121 mm[Hg] Tracy Cornelia Other [facility] Other Encounters Encounter Date Encounter Type Care Provider Facility Start: 01-23-2025 End: 01-23-2025 ambulatory KAMLESH BEY Not Available Start: 01-23-2025 End: 01-23-2025 Office outpatient visit 15 minutes Kamlesh Bey PMHNP-BC Work Phone: [facility] Comment on above: MONICA (generalized anx iety disorder) ; Severe episode of recurrent major depressive disorder, without psychotic features (HCC); PTSD (post-traumatic stress disorder) ; Panic disorder Start: 01-22-2025 End: 01-29-2025 Telephone encounter Berenice Nunez PTA [facility] Comment on above: Bronchitiis; Still i ll Start: 01-17-2025 End: 01-17-2025 Bamboo flowsheet Tiffany Robertson FPGA ENGINEER Work Phone: [facility] Start: 01-17-2025 End: 01-17-2025 Bamboo flowsheet Tiffany Robertson FPGA ENGINEER Work Phone: [facility] Start: 01-17-2025 End: 01-17-2025 ambulatory Berenice Nunez PTA [facility] Comment on above: Pain of left scapula (Primary Dx); Neck pain Start: 01-17-2025 End: 01-17-2025 Office outpatient visit 25 minutes Tiffany Robertson FPGA ENGINEER Work Phone: [facility] Comment on above: Abdominal cramping; Menorrhagia with irregular cycle; Missed period Start: 01-17-2025 End: 01-17-2025 ambulatory TIFFANY ROBERTSON Not Available Start: 01-10-2025 End: 01-10-2025 Bamboo flowsheet Kelli Garcia PT [facility] Start: 01-10-2025 End: 01-10-2025 Bamboo flowsheet Kelli Garcia PT [facility] Start: 01-10-2025 End: 01-10-2025 Telephone encounter Maria Eugenia Milian [facility] Comment on above: OUT OF NETWORK Start: 01-10-2025 End: 01-10-2025 ambulatory Kelli Garcia PT [facility] Comment on above: Pain of left scapula (Primary Dx); Neck pain Start: 01-07-2025 End: 01-07-2025 ambulatory Tiffany Robertson FPGA ENGINEER-C Work Phone: [facility] Work Phone: Start: 01-07-2025 End: 01-07-2025 Patient encounter procedure Antonio Jiménez [facility] Work Phone: Start: 12-27-2024 End: 12-27-2024 Office outpatient visit 15 minutes Harjeet Pelaez NP Work Phone: [facility] Comment on above: Pinched nerve in jen ulder, left (Primary Dx); Pain of left scapula; Neck pain Start: 12-27-2024 End: 12-27-2024 ambulatory HARJEET PELAEZ Not Available Start: 12-27-2024 End: 12-27-2024 Bamboo flowsheet Harjeet Pelaez NP [facility] Phone[facility] Start: 12-27-2024 End: 12-27-2024 Bamboo flowsheet Harjeet Pelaez FPGA ENGINEER Work Phone: [facility] Start: 12-24-2024 End: 12-24-2024 Office outpatient new 45 minutes Efrain Hong PA-C Work Phone: [facility] Comment on above: Chronic daily headac he (Primary Dx); Migraine with aura and without status migrainosus, not intractable; Morning headache; Dizziness after extension of neck Start: 12-24-2024 End: 12-24-2024 ambulatory EFRAIN HONG [facility] Start: 12-06-2024 End: 12-06-2024 Office outpatient new 45 minutes Harjeet Pelaez FPGA ENGINEER Work Phone: [facility] Comment on above: Pain of left scapula (Primary Dx); Pinched nerve in shoulder, left; Trigger point of left shoulder region Start: 12-06-2024 End: 12-06-2024 ambulatory HARJEET PELAEZ Not Available Start: 12-06-2024 End: 12-06-2024 Bamboo flowsheet Harjeet Pelaez NP Work Phone: [facility] Start: 12-06-2024 End: 12-06-2024 Bamboo flowsheet Harjeet Yuliet Ceci FPGA ENGINEER Work Phone: [facility] Start: 11-29-2024 End: 11-29-2024 Bamboo flowsheet Tiffany Robertson FPGA ENGINEER Work Phone: [facility] Start: 11-29-2024 End: 11-29-2024 Bamboo flowsheet Tiffany Robertson FPGA ENGINEER Work Phone: [facility] Start: 11-29-2024 End: 11-29-2024 ambulatory TIFFANY ROBERTSON Not Available Start: 11-29-2024 End: 11-29-2024 Office outpatient visit 25 minutes Tiffany Robertson FPGA ENGINEER Work Phone: [facility] Comment on above: Acute pain of left s houlder (Primary Dx); Nausea and vomiting, unspecified vomiting type; History of colitis; Moderate episode of recurrent major depressive disorder (HCC) Start: 11-20-2024 End: 11-20-2024 Telephone encounter Tiffany Robertson FPGA ENGINEER Work Phone: [facility] Start: 10-29-2024 End: 10-29-2024 ambulatory KAMLESH BEY Not Available Start: 10-29-2024 End: 10-29-2024 Office outpatient visit 15 minutes Kamlesh Bey HNP-BC Work Phone: [facility] Comment on above: MONICA (generalized anx iety disorder) (CMS/HCC); Severe episode of recurrent major depressive disorder, without psychotic features (HCC) (CMS/HCC); PTSD (post-traumatic stress disorder) (CMS/HCC); Panic disorder (CMS/HCC) Start: 10-29-2024 End: 10-29-2024 Bamboo flowsheet Kamlesh Bey HNP-BC Work Phone: [facility] Start: 10-29-2024 End: 10-29-2024 Bamboo flowsheet Kamlesh Bey HNP-BC Work Phone: [facility] Start: 09-24-2024 End: 09-24-2024 Office outpatient visit 15 minutes Kamlesh Bey [facility]- Work Phone: [facility] Comment on above: MONICA (generalized anx iety disorder) (CMS/HCC); Panic disorder (CMS/HCC); Severe episode of recurrent major depressive disorder, without psychotic features (HCC) (CMS/HCC); PTSD (post-traumatic stress disorder) (CMS/HCC) Start: 09-24-2024 End: 09-24-2024 ambulatory KAMLESH BEY Not Available Start: 09-24-2024 End: 09-24-2024 Bamboo flowsheet Kamlesh Bey [facility]- Work Phone: [facility] Start: 09-24-2024 End: 09-24-2024 Bamboo flowsheet Kamlesh Bey [facility]- Work Phone: [facility] Start: 08-28-2024 End: 08-28-2024 Bamboo flowsheet Tiffany Robertson NP Work Phone: [facility] Start: 08-28-2024 End: 08-28-2024 Bamboo flowsheet Tiffany Robertson NP Work Phone: [facility] Start: 08-28-2024 End: 08-28-2024 Patient encounter status Tiffany Robertson NP Work Phone: [facility] Start: 08-28-2024 End: 08-28-2024 Periodic preventive med est patient 18-39 yrs Tiffany Robertson NP Work Phone: [facility] Comment on above: Wellness examination (Primary Dx); Chronic midline low back pain without sciatica; Encounter for initial prescription of contraceptive pills; Dizziness; Other headache syndrome; Moderate episode of recurrent major depressive disorder (CMS/HCC); Menses painful; PTSD (post-traumatic stress disorder) (CMS/HCC); Panic disorder (CMS/HCC); Hiatal hernia; Hemorrhoids, unspecified hemorrhoid type; Generalized anxiety disorder (CMS/HCC); Rectal bleeding; Rectal pain; Liver mass; Irritable bowel syndrome with both constipation and diarrhea; Hepatic steatosis; Constipation, unspecified constipation type; Colitis; History of asthma Start: 08-28-2024 End: 08-28-2024 ambulatory TIFFANY ROBERTSON Not Available Start: 08-27-2024 Non-patient / Non-visit PHYSICIAN NO [facility] Work Phone: Start: 08-26-2024 End: 08-27-2024 ambulatory Tiffany Robertson Facility:[facility] Start: 08-26-2024 End: 08-27-2024 Evaluation and management of inpatient PHYSICIAN NO [facility] [place] [facility] Work Phone: Start: 08-26-2024 End: 08-27-2024 observation encounter PHYSICIAN NO [facility] Work Phone: Start: 08-20-2024 End: 08-20-2024 Bamboo flowsheet Kamlesh Bey PMHNP-BC Work Phone: [facility] Start: 08-20-2024 End: 08-20-2024 Bamboo flowsheet Kamlesh Bey PMHNP-BC Work Phone: [facility] Start: 08-20-2024 End: 08-20-2024 ambulatory KAMLESH BEY Not Available Start: 07-31-2024 End: 07-31-2024 ambulatory CHRISTEL WHITTAKER V Not Available Start: 07-31-2024 End: 07-31-2024 Telephone encounter Tiffany Robertson FPGA ENGINEER Work Phone: [facility] Start: 07-31-2024 End: 07-31-2024 Office outpatient new 45 minutes Tiffany Robertson FPGA ENGINEER Work Phone: [facility] Comment on above: Encounter to [facility] (Primary Dx); Arthralgia, unspecified joint; Joint swelling; Other fatigue; Family history of thyroid disease; Screening for thyroid disorder; Screening for deficiency anemia; Elevated liver function tests; History of asthma; Hiatal hernia; Hemorrhoids, unspecified hemorrhoid type; Liver mass; Irritable bowel syndrome with diarrhea; Hepatic steatosis; Gastritis, presence of bleeding unspecified, unspecified chronicity, unspecified gastritis type; Esophagitis; Duodenitis; Constipation, unspecified constipation type; Colitis Rectal pain (Primary Dx); Rectal bleeding; Unspecified hemorrhoids Start: 07-31-2024 End: 07-31-2024 ambulatory TIFFANY ROBERTSON Not Available Start: 07-24-2024 End: 07-24-2024 Telephone encounter Noms Provider Unallocated MD Work Phone: [facility] Start: 07-23-2024 End: 07-23-2024 ambulatory PHYSICIAN NO [facility] Work Phone: Start: 07-23-2024 End: 07-23-2024 Patient encounter procedure PHYSICIAN NO [facility] Work Phone: Start: 07-19-2024 End: 07-19-2024 Gynecological examination normal Radha Bess CN Work Phone: [facility] Start: 07-19-2024 End: 07-19-2024 Patient encounter status Radha Bess CNM Work Phone: [facility] Work Phone: Start: 07-19-2024 End: 07-19-2024 Periodic preventive med est patient 18-39 yrs Radha Bess CNM Work Phone: [facility] Comment on above: Wellness examination (Primary Dx); Normal gynecologic examination; Screening for cervical cancer Start: 07-19-2024 End: 07-19-2024 ambulatory RADHA BESS Not Available Start: 06-29-2024 End: 06-29-2024 Patient encounter procedure PHYSICIAN NO [facility] Work Phone: Start: 06-29-2024 End: 06-29-2024 ambulatory PHYSICIAN NO [facility] Work Phone: Start: 06-18-2024 End: 06-18-2024 ambulatory PHYSICIAN NO [facility] Work Phone: Start: 06-18-2024 End: 06-18-2024 Patient encounter procedure PHYSICIAN NO [facility] Work Phone: Start: 06-13-2024 End: 06-13-2024 Emergency department patient visit PHYSICIAN NO [facility] Work Phone: Start: 05-21-2024 End: 05-21-2024 Emergency department patient visit NO PCP NO PCP [facility] Start: 03-22-2024 End: 03-22-2024 Patient encounter procedure PHYSICIAN NO [facility] Work Phone: Start: 03-22-2024 End: 03-22-2024 ambulatory PHYSICIAN NO [facility] Work Phone: Start: 03-07-2024 End: 03-07-2024 Emergency department patient visit PHYSICIAN NO [facility]Emergency [facility] Work Phone: Start: 10-28-2023 End: 10-28-2023 ambulatory [facility] Facility[facility] Start: 08-31-2023 Non-patient / Non-visit PHYSICIAN NO [facility] G[facility] Work Phone: Start: 08-31-2023 End: 08-31-2023 Admission to same day surgery center PHYSICIAN NO [facility] Work Phone: Start: 08-31-2023 End: 08-31-2023 ambulatory PHYSICIAN NO [facility] Work Phone: Start: 07-28-2023 Non-patient / Non-visit PHYSICIAN NO [facility] Work Phone: Start: 07-27-2023 Non-patient / Non-visit PHYSICIAN NO [facility] Work Phone: Start: 07-27-2023 End: 07-29-2023 Evaluation and management of inpatient PHYSICIAN NO [facility] Work Phone: Start: 06-19-2023 End: 06-19-2023 Emergency department patient visit NO PCP NO PCP [facility] Start: 06-15-2023 End: 06-15-2023 ambulatory Imad Asaad Other [place] [employer] Other Start: 06-15-2023 Telephone encounter Imad Asaad [facility] Start: 06-08-2023 End: 06-08-2023 ambulatory Imad Asaad Other [facility] [employer] Other Start: 06-08-2023 Office outpatient visit 25 minutes Imad Asaad [facility] Start: 06-08-2023 End: 06-08-2023 Patient encounter procedure PHYSICIAN NO [facility]- Start: 05-29-2023 End: 05-30-2023 Evaluation and management of inpatient MD Camelia Roger Work Phone: [facility] [place] [facility] Work Phone: Start: 05-28-2023 End: 05-30-2023 Emergency department patient visit RABIA NGUYEN [facility] Start: 05-25-2023 End: 05-25-2023 Patient encounter procedure MD Camelia Roger Work Phone: [facility] Work Phone: Start: 05-25-2023 End: 05-25-2023 ambulatory MD Camelia Roger Work Phone: [facility] Work Phone: Start: 05-25-2023 Telephone encounter Imad Asaad [facility] Start: 05-17-2023 End: 05-17-2023 Admission to same day surgery center MD Camelia Roger Work Phone: [facility] Work Phone: Start: 05-17-2023 End: 05-17-2023 ambulatory MD Camelia Roger Work Phone: [facility] Work Phone: Start: 04-08-2023 End: 04-08-2023 ambulatory Antonio Pompa Other [facility] Other Start: 04-08-2023 Office outpatient ne w 30 minutes Antonio Pompa [facility] Start: 03-25-2023 End: 03-26-2023 Emergency department patient visit Camelia Roger Facility:[facility] Start: 03-25-2023 End: 03-25-2023 Emergency department patient visit MD Camelia Roger Work Phone: [facility]-Emergency Room Work Phone: Start: 02-24-2023 End: 02-24-2023 ambulatory Isabella Spencer Other [facility] Other Start: 02-24-2023 Office outpatient visit 15 minutes Isabella Spencer [facility] Start: 12-02-2022 End: 12-02-2022 ambulatory Isabella Spencer Other [facility] Other Start: 12-02-2022 Office outpatient visit 15 minutes Isabella Spencer [facility] Start: 08-21-2022 End: 08-21-[address] STEVE VEGAS . Facility:[facility] Start: 05-05-2022 End: 05-05-2022 ambulatory Tracy Locke Other [facility] Other Start: 05-05-2022 Office outpatient visit 15 minutes Tracy Locke [facility] Start: 02-22-2022 End: 02-22-[address] CAMELIA ROGER Facility:H1 Procedures Date Procedure Procedure Detail Performing Clinician Start: 01-17-2025 Gonadotropin chorionic quantitative Tiffany Robertson NP Work Phone: Start: 01-17-2025 Urnls dip stick/tablet rgnt non-auto w/o micrscp Tiffany Robertson FPGA ENGINEER Work Phone: Start: 12-06-2024 Injection single/belt cleaner trigger point 1/2 muscles Harjeet Pelaez FPGA ENGINEER Work Phone: Start: 08-26-2024 Computed tomography of abdomen and pelvis with contrast PHYSICIAN NO FAMILY Start: 08-20-2024 End: 08-20-2024 Psychiatric diagnostic eval w/medical services MONICA (generalized anxiety disorder) ([facility]/HCC) [facility] Work Phone: Comment on above: MONICA (generalized anxiety disorder) (CMS/ HCC); Panic disorder (CMS/HCC); Severe episode of recurrent major depressive disorder, without psychotic features (HCC) (CMS/HCC); PTSD (post-traumatic stress disorder) (CMS/HCC) Start: 06-13-2024 Computed tomography of abdomen and pelvis with contrast PHYSICIAN NO FAMILY Start: 03-22-2024 Radionuclide gastric emptying study PHYSICIAN NO FAMILY Start: 03-07-2024 Computed tomography of abdomen and pelvis with contrast PHYSICIAN NO FAMILY Start: 08-31-2023 Esophagogastroduodenoscopy PHYSICIAN NO FAMILY Start: [...] Urine culture MD Camelia Roger Work Phone: Plan of Treatment Date Care Activity Detail Author Start: 04-23-2028 DTaP,Tdap and Td Vaccines (8 - Td or Tdap) DTaP,Tdap and Td Vaccines (8 - Td or Tdap) [facility] Start: 12-24-2025 Adult BMI Screening Adult BMI Screening [facility] Start: 12-24-2025 Tobacco Screening Tobacco Screening [facility] Start: 06-04-2025 End: 06-04-2025 Telemedicine consultation with patient 06/04/2025 1:00 PM EST Telemedicine [facility] [address] [place] [phone] Kamlesh Be[facility] [address] [place] [phone] [facility] Start: 02-26-2025 End: 02-26-2025 Patient encounter procedure 02/26/2025 3:00 PM EDT Office Visit [facility] [place] [address] [place] [place] [phone] Efrain Hong, PA-C [address] [facility] [address] [place] [phone] [facility] [place] Start: 02-14-2025 End: 02-14-2025 Patient encounter procedure 02/14/2025 3:30 PM EDT [facility] [address] [place] [phone] Harjeet Pelaez, DORIAN [address] [place], [place] [phone] [facility] Start: 02-13-2025 End: 02-13-2025 ambulatory 02/13/2025 4:00 PM EDT Treatment [facility] [address] [place] [phone] Garcia, Kelli, PT [facility] Start: 02-11-2025 End: 02-11-2025 ambulatory 02/11/2025 4:00 PM EDT Treatment [facility] [address] [place] [address] Kelli Garcia, PT [facility] Start: 02-07-2025 End: 02-07-2025 ambulatory 02/07/2025 3:30 PM EDT Treatment [facility] [address] [place] [address] Bridget Pugh PTA [facility] Start: 02-04-2025 End: 02-04-2025 ambulatory [facility] Start: 01-31-2025 End: 01-31-2025 ambulatory 01/31/2025 2:30 PM EDT Treatment [facility] [address] [place] [address] Berenice Nunez PTA [facility] Start: 01-29-2025 End: 01-29-2025 ambulatory 01/29/2025 3:00 PM EDT Treatment [facility] [address] [place] [address] Berenice Nunez PTA [facility] Start: 01-25-2025 End: 01-25-2025 ambulatory 01/25/2025 2:30 PM EDT Treatment [facility] [address] [place] [address] Bridget Pugh PTA [facility] Start: 01-24-2025 End: 01-24-2025 Patient encounter procedure 01/24/2025 7:45 AM EDT Appointment [facility] [address] [place] [address] [facility] Start: 01-23-2025 End: 01-23-2025 Telemedicine consultation with patient [facility] Comment on above: MONICA (generalized anxiety disorder) ; Severe episode of recurrent major depressive disorder, without psychotic features (HCC); PTSD (post-traumatic stress disorder) ; Panic disorder Start: 01-22-2025 End: 01-22-2025 ambulatory 01/22/2025 3:00 PM EDT Treatment [facility] [address] [facility] [address] [place] [address] Berenice Nunez PTA [facility] Start: 01-21-2025 Influenza vaccination [facility] Start: 01-17-2025 End: 01-17-2025 ambulatory 01/17/2025 2:30 PM EDT Treatment [facility] [address] [facility] [address] [place] [address] Berenice Nunez PTA [facility] Start: 01-17-2025 End: 01-17-2025 Patient encounter procedure 01/17/2025 1:00 PM EDT Office Visit [facility] [address] [place] [address] Tiffany Robertson NP [address] [place] [address] Arrived [facility] Comment on above: Arrived Start: 01-15-2025 End: 01-15-2025 ambulatory 01/15/2025 2:30 PM EDT Treatment [facility] [address] [facility] [address] [place] [address] Bridget Pugh PTA [facility] Start: 01-10-2025 End: 01-10-2025 ambulatory 01/10/2025 9:00 AM EDT Evaluation [facility] [address] [facility] [address] [place] [address] Kelli Garcia PT Pain of left scapula; Neck pain [facility] Comment on above: Pain of left scapula; Neck pain Start: 12-27-2024 End: 12-27-2024 Patient encounter procedure [facility] Comment on above: Arrived Start: 12-24-2024 End: 12-24-2025 MR Brain WO and W contrast IV MR brain with and without contrast Imaging Routine Chronic daily headache Migraine with aura and without status migrainosus, not intractable Morning headache Dizziness after extension of neck Expected: 12/24/2024, Expires: 12/24/2025 [facility] Work Phone: Comment on above: Expected: 12/24/2024, Expires: Start: 12-06-2024 End: 12-06-2024 Patient encounter procedure 12/06/2024 2:45 PM EDT Office Visit [facility] [address] [place] [phone] Harjeet Pelaez NP [address] [place], [place] [phone] Arrived [facility] Comment on above: Arrived Start: 09-25-2024 Influenza vaccination Influenza Vaccine (#1) [facility] Comment on above: Postponed from 01/22/2024 (Patient Refus ed) Start: 09-24-2024 End: 09-24-2024 Patient encounter procedure [facility] Comment on above: MONICA (generalized anxiety disorder) (CMS/ HCC); Panic disorder (CMS/HCC); Severe episode of recurrent major depressive disorder, without psychotic features (HCC) (CMS/HCC); PTSD (post-traumatic stress disorder) (CMS/HCC) Start: 09-04-2024 End: 09-04-2024 Patient encounter procedure 09/04/2024 3:00 PM EDT Office Visit [facility] [address] [place] [phone] Tiffany Robertson NP [address] [place], [place] [phone] [facility] Start: 08-28-2024 End: 08-28-2024 Patient encounter procedure [facility] Comment on above: Arrived Start: 08-27-2024 [facility] Start: 08-26-[address] maker [facility] Start: 08-26-[address] [facility] Start: 08-26-2024 [facility] Start: 08-20-2024 End: 08-20-2024 Patient encounter procedure [facility] Comment on above: Arrived Start: 07-31-2024 End: 07-31-2024 Patient encounter procedure 07/31/2024 3:00 PM EDT Consult [facility] [address] [facility] [address] [place] [phone] Christel Whittaker MD [address] [facility] [address] [place] [address] [facility] Start: 07-31-2024 End: 07-31-2025 Erythrocyte sedimentation rate Sedimentation rate, automated Lab Routine Arthralgia, unspecified joint Joint swelling Other fatigue Expected: 07/31/2024 (Approximate), Expires: 07/31/2025 [facility] Comment on above: Expected: 07/31/2024 (Approximate), Expi res: 07/31/2025 Start: 07-31-2024 End: 07-31-2025 Iron + transferrin + TIBC Iron + transferrin + TIBC Lab Routine Other fatigue Screening for deficiency anemia Expected: 07/31/2024 (Approximate), Expires: 07/31/2025 [facility] Comment on above: Expected: 07/31/2024 (Approximate), Expi res: 07/31/2025 Start: 07-31-2024 End: 07-31-2025 Nuclear Ab [Titer] in Serum by Immunofluorescence FERNY Lab Routine Arthralgia, unspecified joint Joint swelling Other fatigue Expected: 07/31/2024 (Approximate), Expires: 07/31/2025 [facility] Comment on above: Expected: 07/31/2024 (Approximate), Expi res: 07/31/2025 Start: 07-31-2024 End: 07-31-2025 Rheumatoid factor [Units/volume] in Serum or Plasma Rheumatoid factor Lab Routine Arthralgia, unspecified joint Joint swelling Other fatigue Expected: 07/31/2024 (Approximate), Expires: 07/31/2025 [facility] Comment on above: Expected: 07/31/2024 (Approximate), Expi res: 07/31/2025 Start: 07-31-2024 End: 07-31-2025 Thyrotropin [Units/volume] in Serum or Plasma TSH Lab Routine Other fatigue Family history of thyroid disease Screening for thyroid disorder Expected: 07/31/2024 (Approximate), Expires: 07/31/2025 [facility] Work Phone: Comment on above: Expected: 07/31/2024 (Approximate), Expi res: 07/31/2025 Start: 07-31-2024 End: 07-31-2025 Thyroxine (T4) free [Mass/volume] in Serum or Plasma T4, free Lab Routine Other fatigue Family history of thyroid disease Screening for thyroid disorder Expected: 07/31/2024 (Approximate), Expires: 07/31/2025 [facility] Comment on above: Expected: 07/31/2024 (Approximate), Expi res: 07/31/2025 Start: 07-31-2024 End: 07-31-2025 Urate [Mass/volume] in Serum or Plasma Uric acid Lab Routine Arthralgia, unspecified joint Joint swelling Other fatigue Expected: 07/31/2024 (Approximate), Expires: 07/31/2025 [facility] Comment on above: Expected: 07/31/2024 (Approximate), Expi res: 07/31/2025 Start: 07-26-2024 End: 07-26-2024 Patient encounter procedure 07/26/2024 2:00 PM EST Office Visit [facility] [address] [facility] [address] [place] [address] Peggy Song, PAPER FINAL INSPECTOR-CAUSTICISER [address] [facility] [address] [place] [address] [facility] Start: 07-19-2024 End: 07-19-2025 Lipid 1996 panel - Serum or Plasma Lipid panel Lab Routine Normal gynecologic examination Wellness examination Expected: 07/19/2024 (Approximate), Expires: 07/19/2025 [facility] Comment on above: Expected: 07/19/2024 (Approximate), Expi res: 07/19/2025 Start: 07-19-2024 End: 07-19-2025 THINPREP IMAGING PAP AND HPV DNA REFLEX HPV 16,18 THINPREP IMAGING PAP AND HPV DNA REFLEX HPV 16,18 Pathology and Cytology Routine Screening for cervical cancer Expected: 07/19/2024 (Approximate), Expires: 07/19/2025 [facility] Work Phone: Comment on above: Expected: 07/19/2024 (Approximate), Expi res: 07/19/2025 Start: 06-29-2024 [facility] Start: 06-18-2024 Patient referral [facility] Work Phone: Start: 01-22-2024 Influenza vaccination Influenza Vaccine (#1) [facility] Start: 08-31-2023 [facility] Start: 07-29-2023 [facility] Start: 07-27-[address] maker [facility] Start: 07-27-[address] [facility] Start: 05-30-2023 [facility] Start: 05-29-[address] [facility] Start: 05-29-[address]23 [address] maker [facility] Start: 05-25-2023 MR Abdomen WO and W contrast IV [facility] Start: 05-25-2023 MRI of abdomen with contrast MR abdomen wo/w [facility] Start: 05-17-2023 [facility] Start: 03-25-2023 Computed tomography of abdomen and pelvis with contrast CT abdomen pelvis w [facility] Start: 03-25-2023 CT Abdomen and Pelvis W contrast IV [facility] Start: 03-25-2023 Bacteria identified in Urine by Culture [facility] Start: 2018 Screening for malignant neoplasm of cervix Pap Smear [facility] Start: 2015 Adult BMI Follow Up Plan Adult BMI Follow Up Plan [facility] Start: 2009 Depression Screening Depression Screening [facility] CBC panel - Blood by Automated count CBC Lab Routine Normal gynecologic examination Wellness examination Ordered: 07/19/2024 [facility] Comment on above: Ordered: 07/19/2024 Comprehensive metabo lic 2000 panel - Serum or Plasma Comprehensive metabolic panel Lab Routine Normal gynecologic examination Wellness examination Ordered: 07/19/2024 [facility] Comment on above: Ordered: 07/19/2024 Fat [Presence] in Stool [facility] Fat.neutral [Presenc e] in Stool [facility] Patient Education [facility] Work Phone: Patient referral [facility] Work Phone: Thyrotropin [Units/v olume] in Serum or Plasma TSH Lab Routine Normal gynecologic examination Wellness examination Ordered: 07/19/2024 [facility] Comment on above: Ordered: 07/19/2024 [facility] Immunizations Immunization Date Immunization Notes Care Provider Kiana gordon 04-23-2018 tetanus toxoid, reduced diphtheria toxoid, and acellular pertussis vaccine, adsorbed Tracy Locke Other [facility] Other 04-23-2018 tetanus and diphther ia toxoids, adsorbed, preservative free, for adult use (5 Lf of tetanus toxoid and 2 Lf of diphtheria toxoid) PHYSICIAN NO FAMILY [facility] Payers Date Payer Category Payer Managed Care HMO (unspecified) [employer] [id number] 2024 Private Health Insurance [employer] [id number] 2024 Unknown [id number] 2023 Self-pay 1997 Unknown [id number] 2.16.840.1.315349.3.579.2. 593 1997 Unknown [id number] 2.16.840.1.345721.3.579.2. 593 1997 Unknown [id number] 2.16.840.1.845465.3.579.2. 1286 1997 Unknown [id number] 2.16.840.1.074746.3.579.2. 1286 1997 Unknown [id number] 2.16.840.1.300360.3.579.2. 1286 1997 Unknown [id number] 2.16.840.1.496063.3.579.2. 1286 1997 Unknown [id number] 2.16.840.1.854631.3.579.2. 1286 1997 Unknown [id number] 2.16.840.1.420798.3.579.2. 1259 1997 Unknown [id number] 2.16.840.1.583812.3.579.2. 1259 1997 Unknown [id number] 2.16.840.1.820035.3.579.2. 1259 1997 Unknown [id number] 2.16.840.1.715759.3.579.2. 1259 1997 Unknown [id number] 2.16.840.1.389394.3.579.2. 9 1997 Unknown [id number] 2.16.840.1.155093.3.579.2. 1258 1997 Unknown [id number] 2.16.840.1.116161.3.579.2. 1258 1997 Unknown [id number] 2.16.840.1.218876.3.579.2. 1258 1997 Unknown [id number] 2.16.840.1.998329.3.579.2. 1258 1997 Unknown [id number] 2.16.840.1.209981.3.579.2. 1258 1997 Unknown [id number] 2.16.840.1.527021.3.579.2. 1258 1997 Unknown [id number] 2.16.840.1.456386.3.579.2. 1258 1997 Unknown [id number] 2.16.840.1.079970.3.579.2. 1258 1997 Unknown [id number] 2.16.840.1.661107.3.579.2. 1258 1997 Unknown [id number] 2.16.840.1.903223.3.579.2. 1258 1997 Unknown [id number] 2.16.840.1.877627.3.579.2. 1258 1997 Unknown [id number] 2.16.840.1.595141.3.579.2. 1258 1997 Unknown [id number] 2.16.840.1.485105.3.579.2. 1258 1997 Unknown [id number] 2.16.840.1.062831.3.579.2. 9 1959 Unknown [id number] Blue Cross Blue Shield [id number] 2.16.840.1.778911.19 Medicaid [place] Medicaid [place] HMO 000 [id number] Unknown [id number] 2.16.840.1.760283.3.579.2. 531 Unknown [employer] [id number] Unknown [id number] 2.16.840.1.342986.3.579.2. 531 Unknown [id number] 2.16.840.1.357797.3.579.2. 531 Unknown [id number] 2.16.840.1.876482.3.579.2. 531 Unknown [id number] 2.16.840.1.929791.3.579.2. 531 Unknown [id number] 2.16.840.1.485258.3.579.2. 531 Social History Date Type Detail Facility Unknown if ever smoked [facility] Start: 07-19-2024 End: 11-29-2024 Sex Assigned At [facility] Start: 03-25-2023 End: 06-18-2024 Tobacco smoking status [facility] Smoker (finding) [facility] Start: 1995 Sex Assigned At Female F [facility] Start: 12-24-2014 End: 06-13-2024 Sex Female (finding) [facility] Start: 07-19-2024 End: 08-28-2024 Tobacco smoking status AKIS Never smoked tobacco [facility] Start: 07-19-2024 End: 08-28-2024 Tobacco use and exposure Smokeless tobacco non-user [facility] Start: 07-19-2024 End: 08-20-2024 Alcoholic beverage intake Current drinker of alcohol (finding) [facility] Start: 07-19-2024 End: 11-29-2024 History of Social function [facility] Start: 07-19-2024 Gender identity Identifies as female gender (finding) [facility] How often to you hav e a drink containing alcohol? 2-3 time sa week [facility] How many standard drinks containing alcohol do you have on a typical day? 3 or 4 [facility] How often do you hav e 6 or more drinks on 1 occasion? Never [facility] Start: 07-31-2024 Tobacco Comment Pt vapes daily. [facility] How often do you hav e 6 or more drinks on 1 occasion? Monthly [facility] Start: 08-20-2024 Education 21 [facility] Start: 08-20-2024 Alcohol Comment caffiene- 1 te a maybe daily 1-2 pops weekly [facility] Start: 08-27-2024 Tobacco smoking status NHIS Current some day smoker [facility] Start: 08-27-2024 SDOH Follow up SDOH Follow up [facility] Work Phone: Start: 08-28-2024 End: 01-17-2025 Alcoholic beverage intake Ex-drinker (finding) [facility] Childcare Unknown [facility] NEGATED: Highlighted row [facility] NEGATED: Highlighted rowStart: NINF History of tobacco use Passive smoker [facility] Goals Date Patient Goal Desired Activity /State Functional Status Date Assessment Result Facility 11-29-2024 Patient Health [facility] ionnaire 2 item (PHQ-2) [Reported] [facility] 08-27-2024 Functional status Patient at Baseline [facility] Work Phone: 07-29-2023 Functional status Patient at Baseline [facility] Work Phone: 05-30-2023 Functional status Patient at Baseline [facility] Work Phone: Mental Status Date Assessment Result Facility 08-27-2024 Cognitive function Cognitive Sta tus Patient at Baseline [facility] Work Phone: 07-29-2023 Cognitive function Cognitive Sta tus Patient at Baseline [facility] Work Phone: 05-30-2023 Cognitive function Cognitive Sta tus Patient at Baseline [facility] Work Phone: Clinical Notes 02-20-2022 to 01-25-2025 Telephone Encounter - Anum Moseley - 01/25/2025 1:55 PM EDTTelephone Encounter - Anum Moseley - 01/25/2025 1:55 PM EDTTelephone Encounter - Anum Moseley - 01/22/2025 1:28 PM EDT Note Date & Type Note Facility 01-25-2025 Telephone encounter Note Called back noting not feeling any better; she was put on a steroid but is allergic. She said she should be better and ready to go by 01/29. [facility] 01-25-2025 Miscellaneous Notes Called back noting not feeling any better; she was put on a steroid but is allergic. She said she should be better and ready to go by 01/29. She called stating her whole house has come down w/ bronchitiis; she cx today. She noted she should be all better by 01/25; she'll contact if still not feeling good. documented in this encounter [facility] 01-23-2025 History of Present illness Narrative Images from the original note were not included. HPI: Yane Wallace is a 29 y.o. female with a history of Asthma, fatty liver, MONICA, Panic disorder, MDD, and PTSD. Patient is here today for follow-up via telehealth. Location of patient: Home; located in [place] Location of provider: Office; located in [place], [place] Patient seen via: [employer] [facility]; audio and video utilized Reason for [...] back to normal. She continues to see Catalino via telehealth on a regular basis for [...] Drug use: Never Patient Care Team: Tiffany Robertson NP as Nurse Practitioner (Family Medicine) SULMA Gill as Nurse Practitioner (Behavioral Health) PSYCHIATRIC REVIEW [...] PTSD, and panic disorder. She does not fit full criteria for bipolar disorder at this time [...] as described above. documented in this encounter [facility] 01-22-2025 Telephone encounter Note She called stating her whole house has come down w/ bronchitiis; she cx today. She noted she should be all better by 01/25; she'll contact if still not feeling good. [facility] 01-17-2025 History of Present illness Narrative Images from the original note were not [...] has not had another period since. Yesterday, she experienced severe pain during what she thought was [...] initially required changing every 1 to 2 hours. The abdominal pain is described as being five times more intense than typical menstrual cramps. She believes she lost a significant amount of blood [...] Some college, no degree Occupational History Occupation: [employer] Tobacco Use Smoking status: Never Passive exposure: [...] Insecurity: No Food Insecurity (05/21/2024) Received from [facility] Hunger Screening Within the past [...] a large clear clot, which could indicate a miscarriage or an ectopic . - Her urine [...] a pad or tampon an hour), she should go to the ER. -Discussed this likely sounds like irregular menses with recently starting oral control. Discussed importance of taking pill at the same time daily. Urine preg was negative but will get labs and transvaginal US. -Follow up with AMBULATORY TECHNOLOGIST. PVU. 30 minutes spent reviewing chart, assessing patient and documenting. Follow up if symptoms worsen or fail to improve. documented in this encounter [facility] 01-10-2025 Miscellaneous Notes Marian from the Financial Clearance Department called and stated the patient is [facility] of [facility]. They will be calling to notify the patient as well documented in this encounter [facility] 01-10-2025 Telephone encounter Note Marian from the Financial Clearance Department called and stated the patient is out of network for imaging with all [facility] Facilities. They will be calling to notify the patient as well [facility] 12-27-2024 History of Present illness Narrative Images from the original note were not included. HISTORY OF PRESENT ILLNESS: EST PT Yane Wallace is an 29 y.o. @ female. (EST PT) LT SHOULDER; S/P DEPO INJECTION 12/06 (3 WKS) XRAY EPIC 11/29/24 DEPO INJECTION 12/06/24 RELIEF ONLY THE FIRST FEW DAYS. STILL FEELS TENSE, NOTICING MORE INTO NECK. PAIN CONTINUES MOSTLY NEAR SCAPULA. +ICY HOT. +TYL PRN. SOMETIMES WAKES AT HS. INTERMITTENT TINGLING NEAR NECK. +POPPING, GRINDING. HAS LITTLE MORE ROM. HAS BEEN TRYING POOL EXERCISES AND HEP. RT HANDED. UNABLE TO TOLERATE ORAL STEROID PAMELLA: PAIN SINCE END OF 10/2024, NKI. ALLERGIES: Allergies Allergen Reactions Nickel Rash HOME MEDICATIONS: Current Outpatient Medications Medication Instructions albuterol [...] hours. sertraline (ZOLOFT) 100 mg, Oral, Daily PHYSICAL EXAM: Left Shoulder Exam Tenderness Left shoulder tenderness location: medial border of the scapula. Range of Motion Active abduction: 90 Forward flexion: 90 Muscle Strength Abduction: 4/5 Tests Cross arm: positive Other Left shoulder sensation: radicular pain. Pulse: present Comments: Still having pain along medial scapula border into neck. Swelling has improved. Vitals: There is no height or weight on file to calculate BMI. Tobacco Use: Low Risk (12/27/2024) Patient History Smoking Tobacco Use: Never Smokeless Tobacco Use: Never Passive Exposure: Never Alcohol Use: Alcohol Misuse (08/20/2024) AUDIT-C Frequency of Alcohol Consumption: 2-3 times a week Average Number of Drinks: 3 or 4 Frequency of Binge Drinking: Monthly IMAGING: Procedures Orders Placed This Encounter Procedures Ambulatory referral to Physical Therapy Neck and scapula pain Standing Status: Future Expected Date: 12/27/2024 Expiration Date: 06/29/2025 Referral Priority: Routine Referral Type: Rehabilitation - Outpatient Referral Reason: Specialty Services Required Referred to Provider: Kelli Garcia PT Requested Specialty: Physical Therapy Number of Visits Requested: 1 ASSESSMENT: ICD-10-CM 1. Pinched nerve in shoulder, left G56.82 2. Pain of left scapula M89.8X1 Ambulatory referral to Physical Therapy 3. Neck pain M54.2 Ambulatory referral to Physical Therapy PLAN: Patient states she did not get much relief with trigger point injection. She is seeing a neurologist who believed some of her pain could also be coming from her neck. I recommend she start PT for her left shoulder and neck. Follow up in 6-8 weeks for RCK. She is having MRI of her brain completed as well through neurologist. Questions answered in laymen terms at the bedside. The diagnosis, home exercise plan and any ongoing restrictions/ recommendations reviewed. If unable to be reached in office, I recommend evaluation at nearest Emergency Room if any symptoms worsened or new symptoms develop for requiring urgent evaluation. documented in this encounter [facility] 12-24-2024 History of Present illness Narrative [facility] Office Note 12/21/2024 1:48 PM Patient info: Yane Wallace is a 29 y.o. female Account No.: [id number] Acct: [id number] : 1995 PCP: NO PCP, NO PCP Chief Complaint: Patient, 29 year old female, presents today for initial Neurological evaluation regarding headaches. Referred by Tiffany SIEGEL Yane is present in the office today by herself. HPI: Headache Hx: Onset of headaches was as a child. WESTBROOK's worsened approximately 5 years ago (age 24). Headache Characteristics: - Current Frequency: almost every day - Timing: onset is upon waking - Duration: few hours to all day - Location: occipital region with radiation throughout the head - Quality: aching, pressure, and pounding - Intensity: ranges from 4-9/10 - Aura: (+) periodic flashes of light in periphery - Associated sxs.: nausea, light sensitivity, sound sensitivity, dizziness - Autonomic sxs.: No associated lacrimation, asymmetric pupil dilation/constriction, scleral injection, ptosis, lateralized nasal congestion, or lateralized forehead sweating - Complicated sxs.: No associated loss of consciousness (1x in 2023), confusional episodes/delirium, dysarthria, aphasia, paresthesias, or focal/lateralized weakness Contributing Factors: (+) hx of significant head injury/trauma: remote hx 2 concussions (-) hx of CAUSTICISER infection: (-) hx of stroke or cerebrovascular malformation: (-) hx of intracranial mass/tumor/cyst/malformation: (+) hx of anxiety/depression/mood disorder: hx anxiety Caffeine Consumption: - very rare Family Hx: (-) known family member/s with hx of recurrent WESTBROOK/migraines: (+) known family member/s with hx of cerebral aneurysm: maternal grandmother (-) known family member/s with hx of intracranial mass/tumor/cyst/malformation: Dizziness with neck flexion/extension: yes, with flexion and extension Difficulty with gait or recurrent falls: none Yane does wear corrective eye lenses. Most recent eye exam was approximately 1.5 years ago. Current preventative WESTBROOK/migraine medication: Preventative med/s previously tried include: Preventative med/s not indicated include: Current abortive/symptomatic relief WESTBROOK/migraine medication: otc analgesics Abortive/Symptomatic relief med/s previously tried include: Abortive/Symptomatic relief med/s not indicated include: Previous Studies: --- Past Medical Hx: See EMR Social Hx: Tobacco: vapes some days ETOH: none Illicit substances: none Family Hx: Mother: --- Father: --- Siblings: --- Surgical Hx: See EMR Allergies: See EMR Review of Systems: Constitutional: Negative for fever, chills, sweats, or unintentional weight loss Eyes: Negative HENT: Negative Cardiovascular: Negative for chest pain and palpitations Respiratory: Negative for cough and shortness of breath Gastrointestinal: Negative for nausea, vomiting, abdominal pain and diarrhea Genitourinary: Negative for dysuria, urgency, frequency, or hematuria Musculoskeletal: Negative for myalgias or joint swelling Skin: Negative for skin rash Neurological: - as noted in the HPI Psychiatric/Behavioral: - poor sleep Endocrine: Negative Hem/Onc: Negative Allergy/immunology: Negative The remainder of ROS is negative Vitals: BP: 128/93 HR: 75 Weight: 63.4 kg Physical Exam: General: well groomed, appears stated age Neurological Exam: The patient is awake, alert, and attentive Speech and language are normal Normal affect, with normal orientation and cognition EOMI, PERRL, No gross visual field deficits Face is symmetric, Tongue protrudes midline Palate rises symmetrically with uvula midline Shoulder shrug is strong bilaterally Nose to finger testing is without dysmetria Upper Extremity Drift is (-) Fine motor skills are approximately equal in each hand Tremor: (-) Sensation is intact and symmetric in the extremities bilaterally DTR's are 2+ throughout Robertson's sign (-) bilaterally Strength throughout the Upper Extremities is 5/5 Strength throughout the Lower Extremities is 5/5 Muscle Tone throughout the extremities is normal Romberg is (-) Gait is steady with normal base, normal stride and bilateral arm swing ASSESSMENT: Yane is a 29 year old right hand dominant female with a hx of anxiety, IBS, and gastroparesis who has daily morning headache, often with features of migraine. She also has dizziness after extension and flexion of her neck. PLAN: Will order a Brain MRI with and without contrast to assess for intracranial pathology, including potential Chiari Malformation Start Amitriptyline 25 mg, 1/2 tab (12.5 mg) HS for 6 days, then increase to 1 tab (25 mg) HS for WESTBROOK/migraine prevention Start Rizatriptan 10 mg for abortive/symptomatic migraine relief; she already has Zofran ODT at her disposal WESTBROOK log is recommended Identification and avoidance of personal WESTBROOK/migraine triggers discussed Trying to stay on a regular sleep and eating schedule, staying well hydrated, and working on stress management to help reduce WESTBROOK/migraine frequency discussed Follow up in the office in 2 months Electronically Signed by: Efrain Hong PA-C 12/24/24 1156 documented in this encounter [facility] 12-06-2024 History of Present illness Narrative Associated Order(s): Trigger Point Injection (CPT 80921 [place] 25399): left lower trapezius Post-Procedure Diagnose(s): Pain of left scapula; Pinched nerve in shoulder, left; Trigger point of left shoulder region Images from the original note were not included. NAME: Yane Wallace : 1995 HISTORY OF PRESENT ILLNESS: NEW PT Yane Wallace is an 29 y.o. @ female. (NEW PT) [facility] REFERRAL. LT SHOULDER PAIN ~3 WKS, NKI. XRAY EPIC 11/29/24 STABBING PAIN, MOSTLY NEAR SCAPULA. RADIATING DOWN BACK. INTERMITTENT NUMBNESS DOWN ARM. HAS TRIED TYL AND MUSCLE RELAXERS. LIMITED ROM. TROUBLE SLEEPING. +ICY HOT AND ASPERCREME - NO RELIEF. +POPPING, GRINDING - PAIN IS WORSE. PAIN WITH BREATHING. WILL FEEL LIKE SOMETHING IS RUBBING WITH MOVEMENTS NEAR SCAPULA. RT HANDED. UNABLE TO TOLERATE ORAL STEROID PAST MEDICAL HISTORY: Past Medical History: Diagnosis Date Anxiety Depression Diverticulitis Esophagitis Gastritis Hemorrhoids Hiatal hernia IBS (irritable bowel syndrome) Irritable bowel syndrome with both constipation and diarrhea Panic attack PAST SURGICAL HISTORY: Past Surgical History: Procedure Laterality Date APPENDECTOMY 06/2018 COLONOSCOPY 05/17/2023 ESOPHAGOGASTRODUODENOSCOPY 2022 SOCIAL HISTORY: Social History Occupational History Occupation: [employer] Tobacco Use Smoking status: Never Passive exposure: Never Smokeless tobacco: Never Tobacco comments: Pt vapes daily. Vaping Use Vaping status: Every Day Substances: Nicotine, Flavoring Devices: Disposable Substance and Sexual Activity Alcohol use: Not Currently Alcohol/week: 0.0 - 4.0 standard drinks of alcohol Comment: caffiene- 1 tea maybe daily 1-2 pops weekly Drug use: Never Sexual activity: Yes Partners: Male ALLERGIES: Allergies Allergen Reactions Nickel Rash HOME MEDICATIONS: Current Outpatient Medications Medication Instructions albuterol HFA 90 mcg/act inhaler 2 puffs, Inhalation, Every 4 hours PRN cyclobenzaprine (FLEXERIL) 10 mg, Oral, 3 times [...] pantoprazole (PROTONIX) 40 mg, 2 times daily sertraline (ZOLOFT) 100 mg, Oral, Daily REVIEW OF SYSTEMS: Review of Systems Constitutional: Negative for fatigue, fever and unexpected weight change. Eyes: Negative for redness and visual disturbance. Gastrointestinal: Negative for abdominal pain. Denies Indigestion Musculoskeletal: See note: Skin: Negative for color change and rash. Neurological: Negative for light-headedness and numbness. Vitals: There is no height or weight on file to calculate BMI. Tobacco Use: Low Risk (12/06/2024) Patient History Smoking Tobacco Use: Never Smokeless Tobacco Use: Never Passive Exposure: Never Alcohol Use: Alcohol Misuse (08/20/2024) AUDIT-C Frequency of Alcohol Consumption: 2-3 times a week Average Number of Drinks: 3 or 4 Frequency of Binge Drinking: Monthly PHYSICAL EXAM: Left Shoulder Exam Tenderness Left shoulder tenderness location: medial border of the scapula. Range of Motion Active abduction: 90 Forward flexion: 90 Muscle Strength Abduction: 4/5 Tests Cross arm: positive Other Left shoulder sensation: radicular pain. Pulse: present Comments: She has trigger point along medial scapula border. IMAGING: Trigger Point Injection (CPT 59280 or 55877): left lower trapezius on 12/06/2024 3:16 PM Medications: 40 mg methylPREDNISolone acetate 40 MG/ML Outcome: tolerated well, no immediate complications Site cleaned with isopropyl alcohol. Procedure, treatment alternatives, risks and benefits explained, specific risks discussed. Consent was given by the patient. Orders Placed This Encounter Procedures Trigger Point Injection (CPT 31569 or 92474) This order was created via procedure documentation ASSESSMENT: ICD-10-CM 1. Pain of left scapula M89.8X1 2. Pinched nerve in shoulder, left G56.82 3. Trigger point of left shoulder region M25.512 PLAN: I reviewed xray findings with the patient and discussed treatment options, answered questions. I discussed with the patient the option of a trigger point injection as she has pain in 1 area along the medial border of the scapula. I advised the patient of risks associated with an injection including a reaction to medication, infection, failure to improve and possible worsening. The patient demonstrated understanding. Patient requesting injection. Skin Cleansed with alcohol swab. Utilizing aseptic technique patient given 40mg Depomedrol was injected. Patient tolerated this well. Neurovasc intact s/p injection. Post injection care instructions discussed. She will follow up in 2-3 weeks for RCK. If still painful consider PT. Questions answered in laymen terms at the bedside. The diagnosis, home exercise plan and any ongoing restrictions/ recommendations reviewed. If unable to be reached in office, I recommend evaluation at nearest Emergency Room if any symptoms worsened or new symptoms develop for requiring urgent evaluation. documented in this encounter [facility] 11-29-2024 History of Present illness Narrative Images from the original note were not included. Yane Wallace is a 29 y.o. female presents with chief complaint of Shoulder Pain HPI: Shoulder Pain History of Present Illness The patient is a 29-year-old female who presents to the office for left arm pain. She began experiencing severe, constant pain in her left shoulder approximately a week ago, which she describes as a combination of crushing, shooting, dull, aching, and burning sensations. The onset was sudden, with no known cause or injury. The pain intensifies with movement and has been disrupting her sleep. She also reports numbness and tingling down her arm, which was particularly intense when she rolled over onto it during sleep, causing her to wake up. The pain extends to her back, although she has not experienced shoulder pain before. She is not an athlete and reports no recent trauma or falls. She is currently taking Flexeril twice daily for the pain, which provides some relief but leaves her feeling numb. She is unable to tolerate prednisone. She has a history of gastrointestinal issues and is under the care of a needle maker. She took Zofran this morning but vomited it up. She has been unable to keep any food down since yesterday and has been experiencing vomiting for several hours. She has an upcoming appointment with her needle maker on 01/07/2025. Her bowel movements are generally consistent, but become irregular during flare-ups, which occur monthly during her menstrual cycle or when she is constipated. She reports no chest pain, except when vomiting, and confirms that she is not vomiting due to the pain. She is currently menstruating. Her mood is generally good. SUBJECTIVE: MEDICATIONS: Current Outpatient Medications Medication Instructions albuterol HFA 90 mcg/act inhaler 2 puffs, Inhalation, Every 4 hours PRN cyclobenzaprine (FLEXERIL) 10 mg, Oral, 3 times [...] pantoprazole (PROTONIX) 40 mg, 2 times daily sertraline (ZOLOFT) 100 mg, Oral, Daily ALLERGIES: [...] Some college, no degree Occupational History Occupation: [employer] Tobacco Use Smoking status: Never Passive exposure: [...] Insecurity: No Food Insecurity (05/21/2024) Received from [facility] Hunger Screening Within the past 12 months [...] chest pain and palpitations. Gastrointestinal: Positive for nausea and vomiting. Negative for abdominal pain and diarrhea. Genitourinary: Negative. Musculoskeletal: Positive for back pain. Pain to left shoulder, limited ROM Skin: Negative for color change, rash and wound. Psychiatric/Behavioral: Negative. OBJECTIVE: Results 07/31/2024 9:03 AM 07/31/2024 3:06 PM 08/20/2024 12:31 PM 08/28/2024 11:00 AM 09/24/2024 2:54 PM 10/29/2024 3:02 PM 11/29/2024 10:06 AM Vitals BMI 28.97 kg/m2 29 kg/m2 29.58 kg/m2 29.27 kg/m2 27.08 kg/m2 27.28 kg/m2 26.7 kg/m2 BSA (m2) 1.71 m2 1.71 m2 1.73 m2 1.72 m2 1.65 m2 1.66 m2 1.64 m2 Systolic 124 120 132 134 134 102 128 Diastolic 84 72 92 84 84 64 88 Heart Rate 76 85 76 84 67 117 SpO2 99 % Height (in) 5' 0.5 5' 0.5 5' 0.5 Weight (lb) 150.8 151 154 152.4 141 142 139 Visit [...] Palpations: Abdomen is soft. Tenderness: There is no abdominal tenderness. Comments: Actively vomiting during exam Musculoskeletal: General: Tenderness present. Left shoulder: Tenderness present. Decreased range of motion. Right lower leg: No edema. Left lower leg: No edema. Skin: General: Skin is warm and dry. Findings: No rash. Neurological: Mental Status: She is alert. Psychiatric: Mood and Affect: Mood normal. Behavior: Behavior normal. Physical Exam ASSESSMENT AND PLAN: Assessment/Plan Diagnoses and all orders for this visit: Acute pain of left shoulder - XR shoulder 2+ views left; Future - Ambulatory referral to Orthopaedic Surgery; Future Nausea and vomiting, unspecified vomiting type History of colitis Moderate episode of recurrent major depressive disorder (HCC) Assessment & Plan 1. Left arm pain. - Severe, constant pain in the left arm began a week ago, described as crushing, shooting, dull, aching, and burning. - Pain worsens with movement and disrupts sleep; numbness and tingling down the arm, sometimes waking her up. She is unable to tolerate oral prednisone. - No history of trauma or injury; physical therapy not recommended due to severity of symptoms. - X-ray of the left arm ordered; referral to orthopedics for further evaluation and potential steroid injection; MRI may be considered if x-ray is inconclusive. 2. Gastrointestinal issues. - History of gastrointestinal issues; currently experiencing vomiting and inability to keep food down since the previous day. - Took Zofran this morning but vomited it up; scheduled appointment with needle maker on 01/07/2025. - If symptoms persist, advised to go to the hospital for IV fluids. 30 minutes spent reviewing chart, assessing patient and documenting. Follow up if symptoms worsen or fail to improve. documented in this encounter [facility] 11-20-2024 Telephone encounter Note PT IS requesting an appointment for her left shoulder pain, started 2-3 days ago, does not recall injury to the arm. She has always had bad back pains, and thinks this is pinched nerve, or muscle, pain scale is about7 worse when taking a deep breath or if she moves in any direction. Patient would like to be double booked if possible. [facility] 11-20-2024 Miscellaneous Notes PT IS requesting an appointment for her left shoulder pain, started 2-3 days ago, does not recall injury to the arm. She has always had bad back pains, and thinks this is pinched nerve, or muscle, pain scale is about7 worse when taking a deep breath or if she moves in any direction. Patient would like to be double booked if possible. documented in this encounter [facility] 10-29-2024 History of Present illness Narrative Images from the original note were not included. HPI: Yane Wallace is a 29 y.o. female with a history of Asthma, fatty liver, MONICA, Panic disorder, MDD, and PTSD. Patient is here today for follow-up. Patient was seen for initial intake on 08/20/24. At patient's last visit on 09/24/24, her Sertraline was increased. She states her dog unexpectedly from a seizure yesterday. She did get a new cat, which has helped her coping with this loss. She states she has noticed improvement in her mood with the increase in Sertraline. She states she feels more calm. She states her attitude has improved and she is not as reactive. She denies any side effects from this medication. She continues to see Catalino via telehealth on a regular basis for counseling. SUBJECTIVE: PAST MEDICAL HISTORY: Past Medical History: Diagnosis Date Anxiety Depression (CMS/[facility]) Diverticulitis Esophagitis Gastritis Hemorrhoids Hiatal hernia IBS (irritable bowel syndrome) Irritable bowel syndrome with both constipation and diarrhea Panic attack ([facility]) MEDICATIONS: Current Outpatient Medications Medication Instructions albuterol HFA 90 mcg/act inhaler 2 puffs, Inhalation, Every 4 hours PRN cyclobenzaprine (FLEXERIL) 10 mg, Oral, 3 times [...] pantoprazole (PROTONIX) 40 mg, 2 times daily sertraline (ZOLOFT) 100 mg, Oral, Daily ALLERGIES: [...] weekly Drug use: Never Patient Care Team: Jossie Aguiar MD as PCP - General (Family Medicine) Tiffany Robertson NP as Nurse Practitioner (Family Medicine) PRO Gill- as Nurse Practitioner (Behavioral Health) Antonio Pompa MD as Referring Physician (Gastroenterology) PSYCHIATRIC REVIEW OF SYMPTOMS AND MENTAL STATUS [...] make reasonable life decisions. OBJECTIVE: Visit Vitals BP 102/64 (BP Location: Right arm, Patient Position: Sitting) Pulse 67 Wt 142 lb BMI 27.28 kg/m OB Status Having periods Smoking Status Never BSA 1.66 m Lab Results Component Value Date TSH 0.99 [...] PTSD, and panic disorder. She does not fit full criteria for bipolar disorder at this time but was educated on continuing to monitor for this due to her family history. If noted to have this in the future, will add mood stabilizer. She has noticed benefit with adjustments in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 happen in the outpatient setting if she is improving. These episodes also seem to coincide with her menstrual cycle send may consider referral to MARKET DEVELOPMENT DIRECTOR. -She has a history of acute rectal bleeding 2/t hemorrhoids -From a GI standpoint she needs continued on her home bowel regimen and PPI twice daily. -Advance diet as tolerated Thank you for this consult, nothing further to add from a GI standpoint. I willsign off at this time Documented By: Trung Dalal MD 08/27/24 0743 Signed By: <Electronically signed by Trung Dalal MD> 08/27/24 1058 [facility] Work Phone: [phone] 840-730204-07-2025 [place] [address] Gastroenterology Consult Note Signed Patient: Yane Wallace MR#: [id number] : 1995 Acct:[id number] Age/Sex: 29 / F Adm Date: 5 Loc: Room: [address] [place] [address] Type: ADM INOo Attending Dr: Heriberto Shin DO Copies to: MD Tiffany Anne CNP, DO~ HPI Data of Consult Date of Consultation: 08/27/24 Requesting Physician: Heriberto Shin DO Consult Narrative History of present illness: Ms. Wallace is a 29 year old female who is admitted with nausea and vomiting, inability to tolerate p.o. Who GI is consulted for nausea, vomiting and rule out GI bleeding. The patient is well-known [facility] GI service here and has undergone extensive GI workup for the etiology of her symptoms. EGD last year showed a small hiatal hernia. She had a normal colonoscopy. Normal gastric emptying study. She has a history of rectal bleeding secondary to hemorrhoids, was recently seen by our office and general surgery for this. She reports that her symptoms started this past weekend. She had a period of dizziness preceded by nausea and vomiting with inability to tolerate p.o. She endorses bright red blo od per rectum. She has been hemodynamically stable. She is tolerating a clear liquid diet. Initial hemoglobin was baseline, slight decrease with fluid resuscitation. CT scan on admission was negative. cc:: CC: Heriberto Shin DO Review of Systems Constitutional Constitutional: Denies poor appetite and Denies weight loss Eyes Eyes: Denies change in vision and Denies eye discharge ENT Ears, Nose, Mouth, and Throat: Denies nasal discharge, Denies sore throat and Denies vertigo Cardiovascular Cardiovascular: Denies chest pain and Denies dyspnea on exertion Respiratory Respiratory: Denies chest congestion, Denies cough and Denies dyspnea on exertion Gastrointestinal Gastrointestinal: Reports as per HPI Musculoskeletal Musculoskeletal: Denies arthralgias, Denies muscle weakness and Denies numbness Integumentary/Breasts Skin/Breast: Denies change in pigmentation and Denies rash Neurologic Neurologic: Denies numbness and Denies vertigo Psychiatric Psychiatric: Denies anxiety and Denies depression Hematologic/Lymphatic Hematologic/Lymphatic: Denies easy bruising and Denies lymphadenopathy [facility] Medical History Esophagitis Hiatal hernia with GERD Diverticulitis IBS (irritable bowel syndrome) Microscopic colitis Anxiety Surgical History Hx of appendectomy Family History Father Afib Diverticulitis Hypertension Father No problems noted. Social History Smoking Status: Current some day smoker Tobacco Type: e-cigarettes Substance Use Type: None Substance Abuse Comment: Occasional ETOH Meds Medications and Allergies Allergies nickel Allergy (Unknown, Verified 08/26/24 11:34) Rash Home Medications hydrocortisone 2.5 % topical cream with perineal applicator (Anusol-HC) 1 applicPR BID-QID PRN hemorrhoids #30 grams 06/13/24 [Rx Confirmed 08/26/24] gaviscon 1 tab PO Q4HR PRN gerd 06/18/24 [History Confirmed 08/26/24] omeprazole 40 mg capsule,delayed release 40 mg PO BID 30 days #60 caps 06/18/24 [Rx Confirmed 08/26/24] pepcid 1 tab PO DAILY PRN GERD 06/18/24 [History Confirmed 08/26/24] ondansetron 4 mg disintegrating tablet 4 mg PO Q8H PRN nausea and vomiting #14 tabs 07/10/24 [Rx Confirmed 08/26/24] dicyclomine 20 mg tablet 20 mg PO TID PRN abdominal discomfort 07/23/24 [History Confirmed 08/26/24] docusate sodium 100 mg capsule (Colace) 100 mg PO BID PRN constipation 07/23/24 [History Confirmed 08/26/24] sertraline 25 mg tablet 25 mg PO DAILY 08/26/24 [History Confirmed 08/26/24] Exam Physical Exam Vital Signs: Temp Pulse Resp BP Pulse Ox O2 Del Method 99.3 F H 75 18 136/92 98 Room Air 08/27/24 06:23 08/27/24 06:23 08/27/24 06:23 08/27/24 06:23 08/27/24 06:23 08/27/24 06:23 Const General: no acute distress and well developed HEENT Head: normocephalic and atraumatic Mouth: moist mucous membranes Eyes Sclera: sclerae normal (no scleral icterus) EOM: EOM intact bilaterally Neck Other: trachea midline Resp Effort & Inspection: normal respiratory effort and able to speak in complete sentences GI Inspection: normal to inspection and non-distended Palpation: soft and nontender Skin General: turgor normal and no jaundice Neuro General: patient alert and patient oriented x3 Psych Appearance: grossly normal Mental Status: mental status grossly normal Results - Gastroenterology Labs Labs: Laboratory Results - last 24 hr 08/26/24 08/26/24 08/26/24 11:46 13:28 13:41 Corrected WBC 8.1 Uncorrected WBC Count 8.1 RBC 4.40 Hgb 14.8 Hct 44.0 MCV 100.0 MCH 33.7 MCHC 33.7 RDW 14.2 Plt Count 374 MPV 7.7 Neut % (Auto) 86.5 Lymph % (Auto) 9.4 Morris % (Auto) 3.6 Eos % (Auto) 0.0 Baso % (Auto) 0.5 Nucleat RBC Rel Count 0.0 Neut # (Auto) 7.0 Lymph # (Auto) 0.8 L Morris # (Auto) 0.3 Eos # (Auto) 0.0 Baso # (Auto) 0.0 Monocyte Dist Width 16.45 PT INR APTT Sample Site Venous VBG pH 7.14 L* VBG pCO2 27.8 L VBG pO2 49.2 H VBG HCO3 9.3 L VBG Total CO2 10.1 L VBG O2 Saturation 76.9 H VBG O2 Content 6.8 VBG Base Excess -18.3 L FiO2 Na Critical Value PHA Creatinine Clear 95.71 Sodium 138 Potassium 4.7 Chloride 100 Carbon Dioxide 10.7 L Anion Gap 32.0 H BUN 8 Creatinine 0.77 Est GFR (CKD-EPI) > 60.0 Glucose 50 L POC Glucose Calcium 10.0 Magnesium Total Bilirubin 0.7 Direct Bilirubin 0.10 Indirect Bilirubin 0.6 AST 82 H ALT 107 H Alkaline Phosphatase 68 Total Protein 8.7 Albumin 5.1 Globulin 3.6 Albumin/Globulin Ratio 1.4 Lipase 28.0 Urine Color Light-yellow Urine Appearance Clear Urine pH 5.0 Ur Specific [place] 1.021 Urine Protein 30 H Urine Glucose (UA) Normal Urine Ketones 4+ H Urine Occult Blood Negative Urine Nitrite Negative Urine Bilirubin Negative Urine Urobilinogen Normal Ur Leukocyte Esterase Negative Urine RBC 1-2 Urine WBC 1-2 Ur Squamous Epith Cells 3-4 H Urine Bacteria Rare Hyaline Casts None Urine Mucus Rare Urine HCG, Qual Negative Urine Opiates Screen Positive H Ur Barbiturates Screen Negative Ur Phencyclidine Scrn Negative Ur Amphetamines Screen Negative U Benzodiazepines Scrn Negative Urine Cocaine Screen Negative U Marijuana (THC) Screen Negative B-Hydroxybutyrate 7.12 H 08/26/24 08/26/24 08/27/24 14:05 16:31 05:37 Corrected WBC 5.0 Uncorrected WBC Count RBC 3.66 Hgb 12.2 Hct 36.1 MCV 98.6 MCH 33.3 MCHC 33.8 RDW 14.1 Plt Count 246 MPV 7.5 Neut % (Auto) Lymph % (Auto) Morris % (Auto) Eos % (Auto) Baso % (Auto) Nucleat RBC Rel Count Neut # (Auto) Lymph # (Auto) Morris # (Auto) Eos # (Auto) Baso # (Auto) Monocyte Dist Width PT 10.1 INR 0.9 APTT 28.8 Sample Site VBG pH VBG pCO2 VBG pO2 VBG HCO3 VBG Total CO2 VBG O2 Saturation VBG O2 Content VBG Base Excess FiO2 Critical Value PHA Creatinine Clear Sodium Potassium Chloride Carbon Dioxide Anion Gap BUN Creatinine Est GFR (CKD-EPI) Glucose POC Glucose 190 93 Calcium Magnesium 1.5 L Total Bilirubin Direct Bilirubin Indirect Bilirubin AST ALT Alkaline Phosphatase Total Protein Albumin Globulin Albumin/Globulin Ratio Lipase Urine Color Urine Appearance Urine pH Ur Specific [place] Urine Protein Urine Glucose (UA) Urine Ketones Urine Occult Blood Urine Nitrite Urine Bilirubin Urine Urobilinogen Ur Leukocyte Esterase Urine RBC Urine WBC Ur Squamous Epith Cells Urine Bacteria Hyaline Casts Urine Mucus Urine HCG, Qual Urine Opiates Screen Ur Barbiturates Screen Ur Phencyclidine Scrn Ur Amphetamines Screen U Benzodiazepines Scrn Urine Cocaine Screen U Marijuana (THC) Screen B-Hydroxybutyrate A&P - Gastroenterology Assessment/Plan (1) Irritable bowel syndrome with diarrhea: (2) Nausea & vomiting: (3) Hemorrhoids: Plan -The patient has had an extensive GI workup for her nausea and vomiting spells with no GI etiologyfound. At this point I would recommend further workup for other etiologies of nausea and her dizzy episodes. Consider neurology and ENT workup. This can potentially happen in the outpatient setting if she is improving. These episodes also seem to coincide with her menstrual cycle send may consider referral to [facility] [employer]ELOP[facility] [employer]. -She has a history of acute rectal bleeding 2/t hemorrhoids -From a GI standpoint she needs continued on her home bowel regimen and PPI twice daily. -Advance diet as tolerated Thank you for this consult, nothing further to add from a GI standpoint. I willsign off at this time Documented By: Trung Dalal MD 08/27/24 0743 Signed By: 08/27/[address] [place], [place] [id number] History and physical note Author Bailey Cadena [facility] Note Date/Time August 26, 2024 7:09 pm [facility] [address] [place] [address] Hospitalist H&P Signed Patient: Yane Wallace MR#: [id number] : 1995 Acct:[id number] Age/Sex: 29 / F Adm Date: 5 Loc: Room: [address] [place] [address] Type: ADM [facility] Attending Dr: Bailey Cadena MD Copies to: MD Tiffany Reid [facility]~ HPI DATE OF EXAMINATION: 08/26/24 HISTORY OF PRESENT ILLNESS: This is a pleasant 29F with PMH of IBS, Esophagitis, Microscopic colitis, Hiatalhernia, Depression, Anxiety, Hemorrhoid, who presented with N/V/AP and admitted for the evaluation and treatment of intractable N/V and to rule out GI bleeding The patient reported having nausea and vomiting for the past two days and was unable to tolerate diet at home. This was associated with generalized, non-radiating constant pain that is currently more epigastric. She reported hematochezia. She denies any melena, hematemesis, diarrhea, fever, or chills. ROS: Ten Systems reviewed with the patient, all negative except what stated above Assessment And Plan Intractable N/V with abdominal pain rule out GI Bleed at admission, he hemodynamically stable, No overt bleeding , she is not on anticoagulant initial workup: * initial Hemoglobin 14 at baseline * Platelet > 50K * Lipase wnl * urinalysis didn?t show any pyuria or hematuria * Tox screen is positive for opiates * Occult Blood positive * Urine HCG negative * Abd CT showed:Negative acute inflammatory process or bowel obstruction. Fluid resuscitation and Supportive treatment INR/PTT Blood product transfusions as needed Acid suppression with PPI IV H&H monitoring Diet: Resume a clear diet now. Nothing per month after Midnight GI consultation Metabolic acidosis No history of DM metabolic alkalosis due to the loss of hydrogen-rich gastric secretions and fluid contraction, IVF Chronic diseases:?Unless mentioned Above, Essential home medications have been continued.? DVT Px:?Addressed Plan of care Discussed with:?the medical team, the patient and her boyfriend at bedside [facility] Medical History (Updated 08/26/24 @ 15:09 by Johnnie Arreaga PA-C) Esophagitis Hiatal hernia with GERD Diverticulitis IBS (irritable bowel syndrome) Microscopic colitis Anxiety Surgical History Hx of appendectomy Family History Father Afib Diverticulitis Hypertension Father No problems noted. Social History Smoking Status: Never smoker Tobacco Type: e-cigarettes Substance Use Type: Alcohol and Marijuana Substance Abuse Comment: Occasional ETOH Meds Medications and Allergies Allergies nickel Allergy (Unknown, Verified 08/26/24 11:34) Rash Home Medications hydrocortisone 2.5 % topical cream with perineal applicator (Anusol-HC) 1 applicPR BID-QID PRN hemorrhoids #30 grams 06/13/24 [Rx Confirmed 08/26/24] gaviscon 1 tab PO Q4HR PRN gerd 06/18/24 [History Confirmed 08/26/24] omeprazole 40 mg capsule,delayed release 40 mg PO BID 30 days #60 caps 06/18/24 [Rx Confirmed 08/26/24] pepcid 1 tab PO DAILY PRN GERD 06/18/24 [History Confirmed 08/26/24] ondansetron 4 mg disintegrating tablet 4 mg PO Q8H PRN nausea and vomiting #14 tabs 07/10/24 [Rx Confirmed 08/26/24] dicyclomine 20 mg tablet 20 mg PO TID PRN abdominal discomfort 07/23/24 [History Confirmed 08/26/24] docusate sodium 100 mg capsule (Colace) 100 mg PO BID PRN constipation 07/23/24 [History Confirmed 08/26/24] sertraline 25 mg tablet 25 mg PO DAILY 08/26/24 [History Confirmed 08/26/24] Exam Physical Exam Vital Signs: Temp Pulse Resp BP Pulse Ox O2 Del Method 37.4 C H 98 18 112/66 96 Room Air 08/26/24 16:10 08/26/24 15:45 08/26/24 15:45 08/26/24 15:30 08/26/24 15:45 08/26/24 12:13 Narrative: GEN: Cooperative, Not in acute distress. NECK: Supple LUNGS: CTA. normal respiratory effort. CV: S1S2 nl, ? M/R/G ABD: Soft, ND, generalized mild to moderate tenderness with maximum in the epigastric area , + BS, ? rebound/guarding, ?CVA tenderness, ? HSM EXT: No edema in LE bilaterally, no calf muscle tenderness. NEURO: ? FND PSYCH: nl affect,AOx3. Results - Hospitalist H&P Lab Results Labs: Laboratory Last Values Corrected WBC 8.1 X10E3/uL (3.8-11.6) 08/26/24 11:46 Uncorrected WBC Count 8.1 x10E3/uL (3.8-11.6) 08/26/24 11:46 RBC 4.40 x10E6/uL (3.60-5.00) 08/26/24 11:46 Hgb 14.8 g/dL (11.8-15.4) 08/26/24 11:46 Hct 44.0 % (34.0-46.4) 08/26/24 11:46 MCV 100.0 fl (80-100) 08/26/24 11:46 MCH 33.7 pg (24.7-34.3) 08/26/24 11:46 MCHC 33.7 g/dL (32.0-35.0) 08/26/24 11:46 RDW 14.2 % (11.9-15.3) 08/26/24 11:46 Plt Count 374 x10E3/uL (150-450) 08/26/24 11:46 MPV 7.7 fl (6.3-10.7) 08/26/24 11:46 Neut % (Auto) 86.5 % (.) 08/26/24 11:46 Lymph % (Auto) 9.4 % (.) 08/26/24 11:46 Morris % (Auto) 3.6 % (.) 08/26/24 11:46 Eos % (Auto) 0.0 % (.) 08/26/24 11:46 Baso % (Auto) 0.5 % (.) 08/26/24 11:46 Nucleat RBC Rel Count 0.0 /100 WBC (0-0.5) 08/26/24 11:46 Neut # (Auto) 7.0 x10E3/uL (1.8-7.7) 08/26/24 11:46 Lymph # (Auto) 0.8 x10E3/uL (1.00-4.8) L 08/26/24 11:46 Morris # (Auto) 0.3 x10E3/uL (0.0-0.8) 08/26/24 11:46 Eos # (Auto) 0.0 x10E3/uL (0.0-0.45) 08/26/24 11:46 Baso # (Auto) 0.0 x10E3/uL (0.0-0.2) 08/26/24 11:46 Monocyte Dist Width 16.45 % (0.00-20.00) 08/26/24 11:46 Sample Site Venous 08/26/24 13:41 VBG pH 7.14 (7.32-7.43) L* 08/26/24 13:41 VBG pCO2 27.8 mmHg (38.0-50.0) L 08/26/24 13:41 VBG pO2 49.2 mmHg (35.0-45.0) H 08/26/24 13:41 VBG HCO3 9.3 mmol/L (23.0-29.0) L 08/26/24 13:41 VBG Total CO2 10.1 mmol/L (24.0-29.0) L 08/26/24 13:41 VBG O2 Saturation 76.9 % (73.0-76.0) H 08/26/24 13:41 VBG O2 Content 6.8 mmol/L (6.6-9.7) 08/26/24 13:41 VBG Base Excess -18.3 mmol/L (-3.0-3.0) L 08/26/24 13:41 FiO2 Na % 08/26/24 13:41 Critical Value 08/26/24 13:41 PHA Creatinine Clear 95.71 08/26/24 11:46 Sodium 138 mmol/L (136-145) 08/26/24 11:46 Potassium 4.7 mmol/L (3.5-5.1) 08/26/24 11:46 Chloride 100 mmol/L (98-107) 08/26/24 11:46 Carbon Dioxide 10.7 mmol/L (21.0-31.0) L 08/26/24 11:46 Anion Gap 32.0 mEq/L (6.0-15.0) H 08/26/24 11:46 BUN 8 mg/dL (7-25) 08/26/24 11:46 Creatinine 0.77 mg/dL (0.60-1.20) 08/26/24 11:46 Est GFR (CKD-EPI) > 60.0 mL/Min 08/26/24 11:46 Glucose 50 mg/dL (70-100) L 08/26/24 11:46 POC Glucose 93 mg/dl 08/26/24 16:31 Calcium 10.0 mg/dL (8.6-10.3) 08/26/24 11:46 Total Bilirubin 0.7 mg/dl (0.3-1.0) 08/26/24 11:46 Direct Bilirubin 0.10 mg/dL (0.03-0.18) 08/26/24 11:46 Indirect Bilirubin 0.6 mg/dL 08/26/24 11:46 AST 82 U/L (13-39) H 08/26/24 11:46 ALT 107 U/L (7-52) H 08/26/24 11:46 Alkaline Phosphatase 68 U/L (34-104) 08/26/24 11:46 Total Protein 8.7 gm/dL (6.4-8.9) 08/26/24 11:46 Albumin 5.1 gm/dL (3.5-5.7) 08/26/24 11:46 Globulin 3.6 gm/dL 08/26/24 11:46 Albumin/Globulin Ratio 1.4 08/26/24 11:46 Lipase 28.0 U/L (11.0-82.0) 08/26/24 11:46 Urine Color Light-yellow (Yellow) 08/26/24 13:28 Urine Appearance Clear (Clear) 08/26/24 13:28 Urine pH 5.0 (5.0-9.0) 08/26/24 13:28 Ur Specific [place] 1.021 (1.001-1.030) 08/26/24 13:28 Urine Protein 30 mg/dL (Negative) H 08/26/24 13:28 Urine Glucose (UA) Normal mg/dL (Normal) 08/26/24 13:28 Urine Ketones 4+ (Negative) H 08/26/24 13:28 Urine Occult Blood Negative (Negative) 08/26/24 13:28 Urine Nitrite Negative (Negative) 08/26/24 13:28 Urine Bilirubin Negative (Negative) 08/26/24 13:28 Urine Urobilinogen Normal mg/dL (Normal) 08/26/24 13:28 Ur Leukocyte Esterase Negative (Negative) 08/26/24 13:28 Urine RBC 1-2 /HPF (0-4) 08/26/24 13:28 Urine WBC 1-2 /HPF (0-4) 08/26/24 13:28 Ur Squamous Epith Cells 3-4 /HPF (0-2) H 08/26/24 13:28 Urine Bacteria Rare /HPF (None Seen) 08/26/24 13:28 Hyaline Casts None /LPF (0-8) 08/26/24 13:28 Urine Mucus Rare /LPF 08/26/24 13:28 Urine HCG, Qual Negative 08/26/24 13:28 Urine Opiates Screen Positive (Negative) H 08/26/24 13:28 Ur Barbiturates Screen Negative (Negative) 08/26/24 13:28 Ur Phencyclidine Scrn Negative (Negative) 08/26/24 13:28 Ur Amphetamines Screen Negative (Negative) 08/26/24 13:28 U Benzodiazepines Scrn Negative (Negative) 08/26/24 13:28 Urine Cocaine Screen Negative (Negative) 08/26/24 13:28 U Marijuana (THC) Screen Negative (Negative) 08/26/24 13:28 B-Hydroxybutyrate 7.12 mmol/L (0.02-0.27) H 08/26/24 11:46 ABG Interpretation ABG results: 08/26/24 13:41 VBG pH 7.14 L* VBG pCO2 27.8 L VBG pO2 49.2 H VBG HCO3 9.3 L VBG Total CO2 10.1 L VBG O2 Saturation 76.9 H VBG Base Excess -18.3 L Assessment & Plan Assessment/Plan (1) Metabolic acidosis: (2) Nausea & vomiting: Plan IP vs OBS Justification Based on differential dx, clinical care plan, and risk of adverse events, if untreated, in my clinical judgement this patient requires an acute care setting as: OBSERVATION because of an expectation of an under 2 midnight stay. Estimated length of stay (# of days): 1 Documented By: Bailey Cadena MD 08/26/24 1641 Signed By: <Electronically signed by Bailey Cadena MD> 08/26/24 3230 [facility] Work Phone: [phone]) 334-613804-06-2025 History and physical [address] [address] Hospitalist H&P Signed Patient: Yane Wallace MR#: [id number] : 1995 Acct:[id number] Age/Sex: 29 / F Adm Date: 5 Loc: 3T Room: [address] [place] [address] Type: ADM [facility] Attending Dr: Bailey Cadena MD Copies to: MD Tiffany Reid [employer] [employer]~ HPI DATE OF EXAMINATION: 08/26/24 HISTORY OF PRESENT ILLNESS: This is a pleasant 29F with PMH of IBS, Esophagitis, Microscopic colitis, Hiatalhernia, Depression,Anxiety, Hemorrhoid, who presented with N/V/AP and admitted for the evaluation and treatment of intractable N/V and to rule out GI bleeding The patient reported having nausea and vomiting for the past two days and was unable to tolerate diet at home. This was associated with generalized, non- radiating constant pain that is currently moreepigastric. She reported hematochezia. She denies any melena, hematemesis, diarrhea, fever, or chills. ROS: Ten Systems reviewed with the patient, all negative except what stated above Assessment And Plan Intractable N/V with abdominal pain rule out GI Bleed at admission, he hemodynamically stable, No overt bleeding , she is not on anticoagulant initial workup: * initial Hemoglobin 14 at baseline * Platelet > 50K * Lipase wnl * urinalysis didn?t show any pyuria or hematuria * Tox screen is positive for opiates * Occult Blood positive * Urine HCG negative * Abd CT showed:Negative acute inflammatory process or bowel obstruction. Fluid resuscitation and Supportive treatment INR/PTT Blood product transfusions as needed Acid suppression with PPI IV H&H monitoring Diet: Resume a clear diet now. Nothing per month after Midnight GI consultation Metabolic acidosis No history of DM metabolic alkalosis due to the loss of hydrogen-rich gastric secretions and fluid contraction, IVF Chronic diseases:?Unless mentioned Above, Essential home medications have been continued.? DVT Px:?Addressed Plan of care Discussed with:?the medical team, the patient and her boyfriend at bedside [facility] Medical History (Updated 08/26/24 @ 15:09 by Johnnie Arreaga PA-C) Esophagitis Hiatal hernia with GERD Diverticulitis IBS (irritable bowel syndrome) Microscopic colitis Anxiety Surgical History Hx of appendectomy Family History Father Afib Diverticulitis Hypertension Father No problems noted. Social History Smoking Status: Never smoker Tobacco Type: e-cigarettes Substance Use Type: Alcohol and Marijuana Substance Abuse Comment: Occasional ETOH Meds Medications and Allergies Allergies nickel Allergy (Unknown, Verified 08/26/24 11:34) Rash Home Medications hydrocortisone 2.5 % topical cream with perineal applicator (Anusol-HC) 1 applicPR BID-QID PRN hemorrhoids #30 grams 06/13/24 [Rx Confirmed 08/26/24] gaviscon 1 tab PO Q4HR PRN gerd 06/18/24 [History Confirmed 08/26/24] omeprazole 40 mg capsule,delayed release 40 mg PO BID 30 days #60 caps 06/18/24 [Rx Confirmed 08/26/24] pepcid 1 tab PO DAILY PRN GERD 06/18/24 [History Confirmed 08/26/24] ondansetron 4 mg disintegrating tablet 4 mg PO Q8H PRN nausea and vomiting #14 tabs 07/10/24 [Rx Confirmed 08/26/24] dicyclomine 20 mg tablet 20 mg PO TID PRN abdominal discomfort 07/23/24 [History Confirmed 08/26/24] docusate sodium 100 mg capsule (Colace) 100 mg PO BID PRN constipation 07/23/24 [History Confirmed 08/26/24] sertraline 25 mg tablet 25 mg PO DAILY 08/26/24 [History Confirmed 08/26/24] Exam Physical Exam Vital Signs: Temp Pulse Resp BP Pulse Ox O2 Del Method 37.4 C H 98 18 112/66 96 Room Air 08/26/24 16:10 08/26/24 15:45 08/26/24 15:45 08/26/24 15:30 08/26/24 15:45 08/26/24 12:13 Narrative: GEN: Cooperative, Not in acute distress. NECK: Supple LUNGS: CTA. normal respiratory effort. CV: S1S2 nl, ? M/R/G ABD: Soft, ND, generalized mild to moderate tenderness with maximum in the epigastric area , + BS, ? rebound/guarding, ?CVA tenderness, ? HSM EXT: No edema in LE bilaterally, no calf muscle tenderness. NEURO: ? FND PSYCH: nl affect,AOx3. Results - Hospitalist H&P Lab Results Labs: Laboratory Last Values Corrected WBC 8.1 X10E3/uL (3.8-11.6) 08/26/24 11:46 Uncorrected WBC Count 8.1 x10E3/uL (3.8-11.6) 08/26/24 11:46 RBC 4.40 x10E6/uL (3.60-5.00) 08/26/24 11:46 Hgb 14.8 g/dL (11.8-15.4) 08/26/24 11:46 Hct 44.0 % (34.0-46.4) 08/26/24 11:46 MCV 100.0 fl (80-100) 08/26/24 11:46 MCH 33.7 pg (24.7-34.3) 08/26/24 11:46 MCHC 33.7 g/dL (32.0-35.0) 08/26/24 11:46 RDW 14.2 % (11.9-15.3) 08/26/24 11:46 Plt Count 374 x10E3/uL (150-450) 08/26/24 11:46 MPV 7.7 fl (6.3-10.7) 08/26/24 11:46 Neut % (Auto) 86.5 % (.) 08/26/24 11:46 Lymph % (Auto) 9.4 % (.) 08/26/24 11:46 Morris % (Auto) 3.6 % (.) 08/26/24 11:46 Eos % (Auto) 0.0 % (.) 08/26/24 11:46 Baso % (Auto) 0.5 % (.) 08/26/24 11:46 Nucleat RBC Rel Count 0.0 /100 WBC (0-0.5) 08/26/24 11:46 Neut # (Auto) 7.0 x10E3/uL (1.8-7.7) 08/26/24 11:46 Lymph # (Auto) 0.8 x10E3/uL (1.00-4.8) L 08/26/24 11:46 Morris # (Auto) 0.3 x10E3/uL (0.0-0.8) 08/26/24 11:46 Eos # (Auto) 0.0 x10E3/uL (0.0-0.45) 08/26/24 11:46 Baso # (Auto) 0.0 x10E3/uL (0.0-0.2) 08/26/24 11:46 Monocyte Dist Width 16.45 % (0.00-20.00) 08/26/24 11:46 Sample Site Venous 08/26/24 13:41 VBG pH 7.14 (7.32-7.43) L* 08/26/24 13:41 VBG pCO2 27.8 mmHg (38.0-50.0) L 08/26/24 13:41 VBG pO2 49.2 mmHg (35.0-45.0) H 08/26/24 13:41 VBG HCO3 9.3 mmol/L (23.0-29.0) L 08/26/24 13:41 VBG Total CO2 10.1 mmol/L (24.0-29.0) L 08/26/24 13:41 VBG O2 Saturation 76.9 % (73.0-76.0) H 08/26/24 13:41 VBG O2 Content 6.8 mmol/L (6.6-9.7) 08/26/24 13:41 VBG Base Excess -18.3 mmol/L (-3.0-3.0) L 08/26/24 13:41 FiO2 Na % 08/26/24 13:41 Critical Value 08/26/24 13:41 PHA Creatinine Clear 95.71 08/26/24 11:46 Sodium 138 mmol/L (136-145) 08/26/24 11:46 Potassium 4.7 mmol/L (3.5-5.1) 08/26/24 11:46 Chloride 100 mmol/L (98-107) 08/26/24 11:46 Carbon Dioxide 10.7 mmol/L (21.0-31.0) L 08/26/24 11:46 Anion Gap 32.0 mEq/L (6.0-15.0) H 08/26/24 11:46 BUN 8 mg/dL (7-25) 08/26/24 11:46 Creatinine 0.77 mg/dL (0.60-1.20) 08/26/24 11:46 Est GFR (CKD-EPI) > 60.0 mL/Min 08/26/24 11:46 Glucose 50 mg/dL (70-100) L 08/26/24 11:46 POC Glucose 93 mg/dl 08/26/24 16:31 Calcium 10.0 mg/dL (8.6-10.3) 08/26/24 11:46 Total Bilirubin 0.7 mg/dl (0.3-1.0) 08/26/24 11:46 Direct Bilirubin 0.10 mg/dL (0.03-0.18) 08/26/24 11:46 Indirect Bilirubin 0.6 mg/dL 08/26/24 11:46 AST 82 U/L (13-39) H 08/26/24 11:46 ALT 107 U/L (7-52) H 08/26/24 11:46 Alkaline Phosphatase 68 U/L (34-104) 08/26/24 11:46 Total Protein 8.7 gm/dL (6.4-8.9)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 hemorrhoids. No thrombosed hemorrhoids. No prolapsed hemorrhoids. Skin: General: Skin is warm and dry. Neurological: General: No focal deficit present. Mental Status: She is alert. ASSESSMENT AND PLAN: Assessment/Plan Diagnoses and all orders for this visit: Rectal pain Rectal bleeding Unspecified hemorrhoids - Ambulatory referral to General Surgery Patient has had a fairly recent normal colonoscopy. I do not note any external hemorrhoids on exam.If the patient does strain a lot and has hard bowel movements, this may be be contributing to the rectal pain and bleeding. If the patient is able to have her bowel movements regulated to the point that she does have soft formed stool without having to strain or spend a lot of time on the toilet, this may improve the rectal symptoms. I do not find indication for hemorrhoid surgery at this time. The patient will continue to follow with gastroenterology as well as her primary care provider. [id number] History of Present illness Narrative* Tiffany Robertson NP - 07/31/2024 9:00 AM EDT Images from the original note were not included. Yane Wallace is a 29 y.o. female presents with chief complaint of New patient appointment (Pt saw Dr. Roger in [place] years ago, but had insurance issues and hasn't seen a PCP recently. Pt sees a GI doctor at [facility]. Pt sees him this afternoon. Pt has IBS-d. Possibly gastroparesis. Pt has an appt with a therapist. Pt needs a PCP in order to get medications. ) HPI: HPI Here to establish care. Seeing Yoselyn for AMBULATORY TECHNOLOGIST and had recent visit. Also seeing GI. On recent labs with Yoselyn, AST and ALT were mildly elevated. She does see GI for colitis and IBS. She is seeing Dr. Whittaker today for hemorrhoids. Admits internal and external hemorrhoids. Does admit gallstones, never hadthem removed. Has been having diarrhea with blood. Had CT noted to have liver mass, will discuss this with GI. Seeing GI on 09/06. She is taking Zofran per GI. Seeing counselor weekly for anxiety. Feeling more anxious with health. Denies feeling depressed. Seeing psych on 08/20. Denies thoughts of hurting herself. Admits chronic pain, tearful when discussing. Feeling like knees will swelling up andbecome painful when walking her dog. Feels like her head is in a fog. She wonders if she has pots. Admits to feeling dizzy, feeling like she is doing go pass out and even passes out at times. Will feel this way if she stands for a long time while doing dishes. She feels irritable and exhausted. Admits tremors. Not UTD on dental or vision exams. Admits history of asthma, does not currently have alb uterol/rescue inhaler. CT abdomen pelvis w IV contrast Order: [id number] Narrative HISTORY: A 27-year-old female with the history [...] are suggestive of colitis. Sigmoid colon is otherwiseunremarkable. There is evidence of appendicectomy. No evidence [...] Sedrick Tellez MD on 05/28/2023 7:32 PM Exam End: 05/28/23 19:11 Specimen Collected: 05/28/23 19:28 Last Resulted: 05/28/23 19:32 Received From: [facility] Result Received: 07/16/24 09:03 Patient Health Questionnaire-9 Score: 14 Recent Results (from the past 4 weeks) CBC Collection Time: 07/19/24 3:42 PM Result Value Ref Range WHITE BLOOD CELL COUNT 6.2 3.8 - 10.8 Thousand/uL RED BLOOD CELL COUNT 4.22 3.80 - 5.10 Million/uL HEMOGLOBIN 13.8 11.7 - 15.5 g/dL HEMATOCRIT 41.2 35.0 - 45.0 % MCV 97.6 80.0 - 100.0 fL MCH 32.7 27.0 - 33.0 pg MCHC 33.5 32.0 - 36.0 g/dL RDW 12.3 11.0 - 15.0 % PLATELET COUNT 243 140 - 400 Thousand/uL MPV 10.0 7.5 - 12.5 fL Comprehensive metabolic panel Collection Time: 07/19/24 3:42 PM Result Value Ref Range Glucose 81 65 - 99 mg/dL BUN 6 (L) 7 - 25 mg/dL Creatinine 0.60 0.50 - 0.96 mg/dL EGFR 126 > OR = 60 mL/min/1.73m2 BUN/CREATININE RATIO 10 6 - 22 (calc) Sodium 134 (L) 135 - 146 mmol/L Potassium, Bld 3.8 3.5 - 5.3 mmol/L Chloride 99 98 - 110 mmol/L Carbon Dioxide 24 20 - 32 mmol/L Calcium 9.4 8.6 - 10.2 mg/dL PROTEIN, TOTAL 7.3 6.1 - 8.1 g/dL ALBUMIN 4.7 3.6 - 5.1 g/dL GLOBULIN 2.6 1.9 - 3.7 g/dL (calc) ALBUMIN/GLOBULIN RATIO 1.8 1.0 - 2.5 (calc) BILIRUBIN, TOTAL 0.9 0.2 - 1.2 mg/dL ALKALINE PHOSPHATASE 50 31 - 125 U/L AST 49 (H) 10 - 30 U/L ALT 41 (H) 6 - 29 U/L THINPREP IMAGING PAP AND HPV DNA REFLEX HPV 16,18 Collection Time: 07/19/24 3:44 PM Result Value Ref Range CLINICAL INFORMATION LMP PREV. PAP PREV. BX SOURCE STATEMENT OF ADEQUACY GENERAL CATEGORIZATION (A) INTERPRETATION/RESULT (A) COMMENT CONSUMER LENDING MANAGER PATHOLOGIST (ALWAYS MESSAGE) HPV DNA, HIGH RISK, CERVICAL Not Detected NOT DETECTED SUBJECTIVE: MEDICATIONS: Current Outpatient Medications Medication Instructions albuterol HFA 90 mcg/act inhaler 2 puffs, Inhalation, Every 4 hours PRN cyclobenzaprine (Flexeril) 10 MG tablet Every 8 hours as needed for muscle spasm dicyclomine (BENTYL) 20 mg, 3 times daily docusate sodium (COLACE) 100 mg, 2 times daily famotidine (PEPCID) 20 mg, 2 times daily hydrocortisone 2.5 % cream 2-4 TIMES PER DAY as needed for hemorrhoids omeprazole (PRILOSEC) 40 mg, 2 times daily before meals ondansetron ODT (ZOFRAN-ODT) 4 mg, Every 8 hours PRN ALLERGIES: Allergies Allergen Reactions Nickel Rash History: Past Medical History: Diagnosis Date Diverticulitis Esophagitis Gastritis Hemorrhoids IBS (irritable bowel syndrome) Irritable bowel syndrome with both constipation and diarrhea Past Surgical History: Procedure Laterality Date APPENDECTOMY 06/2018 COLONOSCOPY 05/17/2023 ESOPHAGOGASTRODUODENOSCOPY 2022 Family History Problem Relation Name Age of Onset Neuropathy Mother Diverticulitis Father Skin cancer Father Hypertension Father Aneurysm Maternal Grandmother Colon cancer Maternal Grandfather Heart disease Paternal Grandmother Breast cancer Paternal Grandfather Heart disease Paternal Grandfather Social History Socioeconomic History Marital status: Spouse name: Not on file Number of children: Not on file Years of education: Not on file Highest education level: Not on file Occupational History Not on file Tobacco Use Smoking status: Never Smokeless tobacco: Never Tobacco comments: Pt vapes daily. Vaping Use Vaping status: Every Day Substances: Nicotine, Flavoring Devices: Disposable Substance and Sexual Activity Alcohol use: Yes Drug use: Never Sexual activity: Yes Partners: Male Other Topics Concern Not on file Social History Narrative Not on file Social Drivers of Health Financial Resource Strain: Not on file Food Insecurity: No Food Insecurity (05/21/2024) Received from [facility] Hunger Screening Within the past 12 months [...] REVIEW OF SYMPTOMS: Review of Systems Constitutional: Positive for fatigue. Negative for activity change and appetite change. HENT: Negative. Respiratory: Negative for cough, shortness of breath and wheezing. Cardiovascular: Negative for chest pain and palpitations. Gastrointestinal: Positive for abdominal pain (chronic), diarrhea and nausea. Negative for vomiting. Genitourinary: Negative. Musculoskeletal: Positive for arthralgias, joint swelling and myalgias. Skin: Negative for color change, rash and wound. Psychiatric/Behavioral: Positive for dysphoric mood. The patient is nervous/anxious. OBJECTIVE: 07/27/2018 12:00 PM 07/19/2024 3:12 PM 07/31/2024 9:03 AM 07/31/2024 3:06 PM Vitals BMI 32.22 kg/m2 30.47 kg/m2 28.97 kg/m2 29 kg/m2 BSA (m2) 1.78 m2 1.73 m2 1.71 m2 1.71 m2 Systolic 102 124 120 Diastolic 68 84 72 Heart Rate 76 Height (in) 5' 5' 0.5 5' 0.5 Weight (lb) 165 156 150.8 151 Visit Report Report Report Report Physical Exam Vitals [...] Palpations: Abdomen is soft. Tenderness: There is no abdominal tenderness. Musculoskeletal: Right lower leg: No edema. Left lower leg: No edema. Skin: General: Skin is warm and dry. Findings: No rash. Neurological: Mental Status: She is alert. Mental status is at baseline. Psychiatric: Mood and Affect: Mood is anxious. Affect is tearful. Behavior: Behavior normal. Thought Content: Thought content normal. Judgment: Judgment normal. ASSESSMENT AND PLAN: Assessment/Plan Diagnoses and all orders for this visit: Encounter to establish care -Will bring her back in 1 month for recheck/wellness examination. Arthralgia, unspecified joint - FERNY; Future - Rheumatoid factor; Future - Sedimentation rate, automated; Future - Uric acid; Future Joint swelling - FERNY; Future - Rheumatoid factor; Future - Sedimentation rate, automated; Future - Uric acid; Future -Will get labs looking for rheumatoid issues or autoimmune disorder. Other fatigue - TSH; Future - T4, free; Future - Iron + transferrin + TIBC; Future - FERNY; Future - Rheumatoid factor; Future - Sedimentation rate, automated; Future - Uric acid; Future Family history of thyroid disease - TSH; Future - T4, free; Future Screening for thyroid disorder - TSH; Future - T4, free; Future Screening for deficiency anemia - Iron + transferrin + TIBC; Future Elevated liver function tests -Will send labs to GI, she is following up with them next month. History of asthma - albuterol HFA 90 mcg/act inhaler; Inhale 2 puffs every 4 (four) hours if needed for shortness of breath or wheezing -Advised patient to use albuterol inhaler 1-2 puffs every 4 hours as needed for coughing, shortnessof breath or wheezing. Education given on importance of rinsing mouth out after each use to preventoral thrush. Hiatal hernia -Denies concerns, seeing GI. Hemorrhoids, unspecified hemorrhoid type -Seeing general surgery today for eval. Liver mass -To follow up with GI. Irritable bowel syndrome with diarrhea -GI. Hepatic steatosis -GI. Gastritis, presence of bleeding unspecified, unspecified chronicity, unspecified gastritis type -As above. Esophagitis -As above. Duodenitis Constipation, unspecified constipation type -Currently having more diarrhea. Colitis -Seeing GI. 30 minutes spent reviewing chart, assessing patient and documenting. Follow up in about 4 weeks (around 08/28/2024) for for wellness examination . documented in this [facility]03-04-2025 Telephone encounter Note* Telephone Encounter - Gina Rosario - 07/24/2024 12:41 PM EST Pt was told by Yoselyn to ask if you would accept as a new patient. [facility], Medications are Omeprazole, dicylclomine, miralax, [facility] [id number] Miscellaneous Notes* Telephone Encounter - iGna Rosario - 07/24/2024 12:41 PM EST Pt was told by Yoselyn to ask if you would accept as a new patient[facility] [place] are Omeprazole, dicylclomine, miralax, documented in this [facility]02-27-2025 History of Present illness Narrative* Radha Bess CNM - 07/19/2024 3:00 PM EST YEARLY HPI: This is a new patient. Chief Complaint Patient presents with Gynecologic Exam Here for annual exam. OB History Para Term AB Living 0 0 0 0 0 0 SAB IAB Ectopic Multiple Live Births 0 0 0 0 0 AMBULATORY TECHNOLOGIST complaints: no Changes in healthsince last visit: no Surgeries or hospitalizations since last visit: no control method: none Menses: regular every 28-30 days Last pap: 2019 Other: History: Past Medical History: Diagnosis Date Diverticulitis Esophagitis Gastritis IBS (irritable bowel syndrome) Past Surgical History: Procedure Laterality Date APPENDECTOMY COLONOSCOPY 05/17/2023 Family History Problem Relation Name Age of Onset Diverticulitis Father Allergies: Allergies Allergen Reactions Nickel Rash Medications: Current Outpatient Medications on File Prior to Visit Medication Sig Dispense Refill dicyclomine (Bentyl) 10 MG capsule Take 10 mg by mouth in the morning and 10 mg in the evening and 10 mg before bedtime. omeprazole (PriLOSEC) [address] capsule Take 40 mg by mouth in the morning and 40 mg in the evening.Take before meals. ondansetron ODT (Zofran-ODT) 4 MG disintegrating tablet Take 4 mg by mouth every 8 (eight) hours ifneeded for nausea No current facility-administered medications on file prior to visit. ROS: Review of Systems All other systems reviewed and are negative. There were no vitals filed for this visit. Physical exam: Physical Exam Vitals reviewed. Constitutional: Appearance: Normal appearance. HENT: Head: Normocephalic. Right Ear: Tympanic membrane normal. Left Ear: Tympanic membrane normal. Mouth/Throat: Mouth: Mucous membranes are moist. Eyes: Pupils: Pupils are equal, round, and reactive to light. Cardiovascular: Rate and Rhythm: Normal rate and regular rhythm. Pulses: Normal pulses. Heart sounds: Normal heart sounds. Pulmonary: Effort: Pulmonary effort is normal. Breath sounds: Normal breath sounds. Chest: Breasts: Right: Normal. Left: Normal. Abdominal: General: Abdomen is flat. Bowel sounds are normal. Palpations: Abdomen is soft. Tenderness: There is no abdominal tenderness. Genitourinary: General: Normal vulva. Exam position: Lithotomy position. Vagina: Normal. No tenderness. Cervix: Normal. No cervical motion tenderness. Uterus: Normal. Adnexa: Right adnexa normal and left adnexa normal. Musculoskeletal: General: Normal range of motion. Cervical back: Normal range of motion and neck supple. Skin: General: Skin is warm and dry. Neurological: General: No focal deficit present. Mental Status: She is alert and oriented to person, place, and time. Psychiatric: Mood and Affect: Mood normal. Assessment and Plan: 1. Annual exam 2. SBE discussed: Yes 3. Diet and exercise discussed: No 4. Wt control discussed: No 5. Safe sex discussed: No Yane was seen today for gynecologic exam. Diagnoses and all orders for this visit: Normal gynecologic examination Screening for cervical cancer No follow-ups on file. There are no Patient Instructions on file for this visit. Sherie Braga MA, 07/19/2024 3:19 PM [id number] Evaluation note* Diagnosis Onset Date Resolution Status Admit Date Abdominal pain acute June 182024 10:47am Hemorrhoids acute June 18, 2024 10:47am Irritable bowel syndrome wit h diarrhea acute June 18 10:47am Nausea & vomiting acute June 18, 2024 10:47am [facility] Work Phone: 1(113) 928-179901-27-2025 Evaluation note* Diagnosis Onset Date Resolution Status Admit Date Abdominal pain acute June 182024 10:47am Hemorrhoids acute June 18, 2024 10:47am Irritable bowel syndrome wit h diarrhea acute June 18 10:47am Nausea & vomiting acute June 18, 2024 10:47am Abdominal pain acute July 23, 2024 10:22am Hemorrhoids acute July 23 10:22am Irritable bowel syndrome wit h diarrhea acute July 23, 2024 10:22am Nausea & vomiting acute July 232024 10:22am Metabolic acidosis acute August 26, 2024 3:08pm Nausea & vomiting acute August 262024 3:08pm [facility] Work Phone: 1(532) 358-841601-27-2025 Evaluation note* Diagnosis Onset Date Resolution Status Admit Date Abdominal pain acute June 182024 10:47am Hemorrhoids acute June 18, 2024 10:47am Irritable bowel syndrome wit h diarrhea acute June 18 10:47am Nausea & vomiting acute June 18, 2024 10:47am Abdominal pain acute July 23, 2024 10:22am Hemorrhoids acute July 23 10:22am Irritable bowel syndrome wit h diarrhea acute July 23, 2024 10:22am Nausea & vomiting acute July 232024 10:22am Hemorrhoids acute August 26 3:08pm Irritable bowel syndrome wit h diarrhea acute August 26, 2024 3:08pm Metabolic acidosis acute August 26, 2024 3:08pm Nausea & vomiting acute August 262024 3:08pm [facility] Work Phone: 1(607) 249-604001-22-2025 Radiology [facility] Main [place] [address] [place] [address] CT Scan Report Signed Patient: Yane Wlalace MR#: [id number] : 1995 Acct:[id number] Age/Sex: 28 / F ADM Date: 5 Loc: ER Room: [facility] ER Attending Dr: Copies to: Renny Estrada Jr, MD~ Ordering Provider: Renny Estrada Jr, MD Date of Service: 06/13/24 CT/CT abdomen pelvis w con: abd pain CT abdomen pelvis w con 06/13/2024 9:09 PM SIGNS AND SYMPTOMS: Generalized abdominal pain, nausea and vomiting TECHNIQUE: Multidetector ct axial images of the abdomen and pelvis were obtainedwith IV contrast. Multiplanar reformats were performed and reviewed to further define anatomy and possible pathology. CT was performed with one or more of thefollowing dose reduction techniques: Automated exposure control, adjustment of the mA and/or kV according to patient size, or use of iterative reconstruction technique. COMPARISON: 03/07/2024 FINDINGS: Lower Chest: Within normal limits. ABDOMEN: Liver: There is a 14 mm focus of hypoattenuation in the right hepatic lobe whichis unchanged. This is of uncertain etiology. The liver is diffusely hypoattenuating suggesting hepatic steatosis. Bile Ducts: Normal caliber. Gallbladder: No calcified gallstones. Normal caliber wall. Pancreas: Within normal limits. Spleen: Within normal limits. Adrenals: Within normal limits. Kidneys: Within normal limits. Pelvis: Reproductive Organs: No dominant follicles are noted in the adnexa bilaterally measuring up to 2.2 cm in greatest dimension on the right. These are similar tothe prior exam. Ureters: Within normal limits. Bladder: Within normal limits. Bowel: Normal caliber. There is evidence of previous appendectomy. There is hypoattenuation along the wall of the colon suggesting chronic inflammatory colitis. Mesenteric Lymph Nodes: No enlarged mesenteric lymph nodes. Peritoneum: No ascites or free air, no fluid collection. Vessels: within normal limits Retroperitoneum: Within normal limits. Abdominal Wall: Within normal limits. Bones: Degenerative changes are noted in the thoracolumbar spine and sacroiliac joints. CT/CT abdomen pelvis w con IMPRESSION: No bowel obstruction or obstructive uropathy. No free fluid or free air. No acute intra-abdominal pathology. Findings suggest hepatic steatosis similar to the prior exam with possible focalfatty sparing or hemangioma in the right hepatic lobe showing no significant interval change. There is hypoattenuation along the wall of the colon suggesting chronic inflammatory colitis. This is unchanged. Impression dictated by: Jeff Martines M.D.06/13/2024 10:06 PM Dictation Location: [place] [address] Transcribed By: [facility] 06/13/242205 Dictated By: Jeff Martines II, MD 06/13/242150 Signed By: 06/13/242205 [facility] Work Phone: 1(956) 927-646004-10-2024 [facility] Evaluation note* Encounter Date Diagnosis Assessment Notes Treatment Notes Treatment Clinical Notes May, Liver lesion (ICD-10 - K76.9) [facility] Other 01-17-2024 Evaluation note* Encounter Date Diagnosis Assessment Notes Treatment Notes Treatment Clinical Notes May, Liver lesion (ICD-10 - K76.9) May, Gastroesophageal ref lux disease with esophagitis, unspecified whether hemorrhage (ICD-10 - K21.00) May, Microscopic colitis, unspecified microscopic colitis type (ICD-10 - K52.839) [facility] Other 01-08-2024 Consult note Author Abel Downey [facility] May 30, 2023 1:41pm Note Date/Time May 29, 2023 7: 39pm [facility] [address] [place] [address] Gastroenterology Consult Note Signed Patient: Yane Wallace MR#: [id number] : 1995 Acct:[id number] Age/Sex: 27 / F Adm Date: 4 Loc: Room: [address] [place] [address] Type: ADM IN Attending Dr: Heriberto Shin DO Copies to: Abel Downey MD NO FAMILY PHYSICIAN Heriberto Shin DO~ HPI Data of Consult Date of Consultation: 05/29/23 Requesting Physician: Heriberto Shin DO Consult Narrative History of present illness: Ms. 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 Budesonide was ordered [...] negative unless noted below or in HPI [facility] Medical History (Updated 05/29/23 @ 16:06 by [...] prior workup Documented By: Abel Downey MD 05/29/231936 Signed By: <Electronically signed by MD Abel Downey> 05/30/23 1341 [facility] Work Phone: 1(760) 524-680901-08-2024 Progress note Author Heriberto hSin [facility] May 30, 2023 11:53am Note Date/Time May 30, 2023 11 :53am [facility] [address] [place] [address] Hospitalist Progress Note Signed Patient: Yane Wallace MR#: [id number] : 1995 Acct:[id number] Age/Sex: 27 / F Adm Date: 4 Loc: Room: [address] [place] [address] Type: ADM IN Attending Dr: Heriberto Shin [...] Dose Route Start Last Admin Trade Name Freq PRN Reason Stop Dose Admin Acetaminophen 650 [...] signed by Heriberto Shin DO> 05/30/23 1153 [facility] Work Phone: 1(294) 231-581201-08-2024 [facility] History and physical note Author Heriberto Shin [facility] May 29, 2023 4:08pm Note Date/Time May 29, 2023 4: 08pm [facility] [address] [place] [address] Hospitalist H&P Signed Patient: Yane Wallace MR#: [id number] : 1995 Acct:[id number] Age/Sex: 27 / F Adm Date: 4 Loc: Room: [address] [place] [address] Type: ADM IN Attending Dr: Heriberto Shin [...] negative unless noted below or in HPI [facility] Medical History (Updated 05/29/23 @ 16:06 by [...] signed by Heriberto Shin DO> 05/29/23 1608 [facility] Work Phone: 1(815) 487-421312-26-2023 [facility] Evaluation note* Encounter Date Diagnosis Assessment [...] Change in bowel habits (ICD-10 - R19.4) [facility] Other 10-05-2023 Evaluation note* Encounter Date Diagnosis [...] (suspected) exposure to covid-19 (ICD-10 - Z20.822) [facility] Other 07-13-2023 Evaluation note* Encounter Date Diagnosis [...] throat (ICD-10 - J02.9) rapid strep neg [facility] Other 12-14-2022 Evaluation note* Encounter Date Diagnosis [...] lumbar region, initial encounter (ICD-10 - S39.012A) [facility] Other 10-01-2022 History general Narrative - Reported* Type Description Date Medical History Eczema Medical History Asthma Medical History back pain Surgical History wisdom teeth Surgical History appendectomy 2019 Hospitalization History Dehydration 02/2022 [facility] Other Discharge summary Author Heriberto Shin [facility] May 30, 2023 6:04pm Note Date/Time May 30, 2023 6: 04pm [facility] [address] [place] [address] Discharge Summary Signed Patient: Yane Wallace MR#: [id number] : 1995 Acct:[id number] Age/Sex: 27 / F Adm Date: 4 Loc: Room: [address] [place] [address]: Heriberto Shin DO Copies to: NO FAMILY PHYSICIAN Heriberto Shin DO~ Providers Date of Admission: 05/29/23 Date of Discharge: 05/30/23 Discharging Provider: Heriberto Shin Primary Care Provider: PHYSICIAN SUSAN FAMILY Consults: 05/29/23 15:29 Consult to Gastroenterology [...] % (Auto) 88.1, Lymph % (Auto) 7.0, Morris % (Auto) 4.7, Eos % (Auto) 0.0, Baso % (Auto) 0.2, Nucleat RBC Rel Count 0.1, Neut # (Auto) 9.7 H, Lymph # (Auto) 0.8 L, Morris # (Auto) 0.5, Eos # (Auto) 0.0, [...] By: <Electronically signed by Heriberto Shin DO> 05/30/239 [facility] Work Phone: Discharge summary Author Heriberto Shin [facility] Note Date/Time August 27, 2024 1:59 pm [facility] [address] [place] [address] Discharge Summary Signed Patient: Yane Wallace MR#: [id number] : 1995 Acct:[id number] Age/Sex: 29 / F Adm Date: 5 Loc: Room: [address] [place] [address]: Heriberto Shin DO Copies to: Mahnaz Shin DO~ Providers Date of Admission: 08/26/24 Date of Discharge: 08/27/24 Discharging Provider: Heriberto Shin Additional Discharging Provider: Heriberto Shin Primary Care Provider: Tiffany Robertson Consults: 08/26/24 16:42 Consult to Gastroenterology Routine Comment: Consulting Provider: Trung Dalal Reason For Exam: rule out GI bleed /Intractable N/V Has Provider Been Notified: Yes Date of Notification: 08/26/24 Time of Notification: 17:53 Discharge Diagnosis (1) Irritable bowel syndrome with diarrhea: (2) Nausea & vomiting: (3) Hemorrhoids: Final Diagnosis Final Discharge Diagnosis: Idiopathic nausea and vomiting. Summary Hospital Course Hospital course: Ms. Wallace is a 29-year-old woman who presented with acute and intractable nausea and vomiting. She says it started Tuesday. She says when she starts to feel like this, she restricts her diet to clear liquids only. She said she has not had a full meal in many days. She also has a secondary complaint of bright red blood per rectum. She says shehas this normally, due to her hemorrhoids, but said the quantity was slightly increasing with her last bowel movement did have days ago. Patient was worried about a tear though no tears visible upon exam. Patient also had some metabolic acidosis upon presentation. She had elevated ketones in hydroxybutyrate on lab values today. Suspected her metabolic acidosis is linked to her fasting state. Following admission, patient was treated with PPIs, IV fluids to rehydrate her, and Zofran for nausea. She endorses feeling much better and having much less abdominal pain. She says the pain was a 10 out of 10 when she arrived there wasnow 4 out of 10. She is feeling much better is better with the Zofran she says. Ms. Wallace has a past medical history of hemorrhoids, small hiatal hernia, microscopic colitis, irritable bowel syndrome, and anxiety. Gastroenterology was consulted, who said they had already done a very thorough workup including a colonoscopy, normal gastric emptying study, EGD that only showed a small hiatal hernia. Patient also had a CT scan on admission that showed some fatty infiltrate of the liver. They suggested that she noticed it was align with the timing of her periods and suggested outpatient MARKET DEVELOPMENT DIRECTOR follow-up. Gastroenterology signed off. She is tolerating clear fluids and increasingdiet. Patient has no further complaints or concerns and was discharged at this point. I personally saw this patient on the day of the encounter, reviewed the history,performed the roca elements of the exam, formulated the plan of care and confirmed the Resident's assessment and plan. I agree with the above statement,patient was advanced to clear liquid diet this morning, she tolerated diet well. She then had a bowl of soup and half of a grilled cheese sandwich for lunch, she did have a little bit of abdominal discomfort with the second half of her grilled cheese sandwich. I did review with her her extensive GI history, likelihood of the mild degree of gastroparesis and recommending small frequent meals rather than larger less frequent meals. She understands this, she also does have an appointment with MARKET DEVELOPMENT DIRECTOR starting tomorrow, and recommended discussing this with her MARKET DEVELOPMENT DIRECTOR in regards to possible contraceptive therapy to see if there is perhaps a hormonal component to her symptoms. Patient understands this, she will be given a prescription of under the tongue Zofran aswell as 3 months worth of Protonix 40 mg twice daily and discharge home today. - Heriberto Shin DO Condition Condition at Discharge: Stable Status at Discharge Functional status at discharge: independent ambulation Overall status at discharge: patient is progressing back to baseline Time Spent with Patient Time spent providing/coordinating discharge services (# min): 15 Discharge Plan Discharge Plan Patient Disposition: Home Activity: No Activity Restriction Diet: Regular Instructions: Know your Meds Stand Alone Forms: Work/School Release Form Prescriptions: New pantoprazole [Protonix] 40 mg tablet,delayed release (DR/EC) 40 mg PO BID Qty: 120 0RF Continued hydrocortisone [Anusol-HC] 2.5 % cream with perineal applicator 1 applic ID BID-QID PRN (Reason: hemorrhoids) Qty: 30 0RF sertraline 25 mg tablet 25 mg PO DAILY ondansetron 4 mg tablet,disintegrating 4 mg PO Q8H PRN (Reason: nausea and vomiting) Qty: 30 0RF pepcid 1 tab PO DAILY PRN (Reason: GERD) gaviscon 1 tab PO Q4HR PRN (Reason: gerd) dicyclomine 20 mg tablet 20 mg PO TID PRN (Reason: abdominal discomfort) docusate sodium [Colace] 100 mg capsule 100 mg PO BID PRN (Reason: constipation) Discontinued omeprazole 40 mg capsule,delayed release(DR/EC) 40 mg PO BID 30 Days Qty: 60 5RF Rx Instructions: Take 1 capsule orally 30 minutes before morning meal and 30 minutes before evening meal. Follow Up: Antonio Pompa APRN [Nurse Practitioner] - 09/06/24 10:40 am (Follow-up with Gastroenterology as previously scheduled. ) Tiffany Robertson NP-C [Primary Care Provider] - 09/04/24 3:00 pm (Follow-up with your Primary Care Provider, call office to reschedule if needed. ) Exam Physical Exam Vital Signs: Temp Pulse Resp BP Pulse Ox O2 Del Method 98.2 F 78 18 130/90 98 Room Air 08/27/24 08:00 08/27/24 08:00 08/27/24 08:00 08/27/24 08:00 08/27/24 08:00 08/27/24 08:00 Narrative: General: Patient is lying in bed in no acute distress. She appears comfortable Psych: Alert and oriented x 4. Normal affect Cardio: Regular rate and rhythm no M/G/R Respiratory: Clear to auscultation bilaterally GI: Normal bowel sounds, though may be slightly slowed. Took about 8 seconds and 2 of the quadrants. Mild diffuse tenderness. Nondistended. Rectal: Digital rectal exam was deferred due to her already having positive occult blood. Patient did request a check for care which I did. External hemorrhoid, mild was noted. No tear observed no blood observed. Skin: No obvious rashes or lesions noted Extremities: Legs appear well-perfused and dry. Warm and without edema. Head: Atraumatic and normocephalic Neuro: Cranial nerves II through XII grossly intact. Diagnostic Studies Completed and Pending Studies Pending studies at discharge: 08/28/24 05:00 CBC [Hemogram CBC Without Diff] IN AM 08/29/24 05:00 CBC [Hemogram CBC Without Diff] IN AM Labs on day of discharge: 08/27/24 05:37: Calcium Cancelled, Magnesium 1.5 L 08/27/24 05:37: Glucose Cancelled, Calcium 8.4 L D 08/27/24 05:37: Est GFR (CKD-EPI) Cancelled, Glucose 61 L 08/27/24 05:37: Creatinine Cancelled, Est GFR (CKD-EPI) > 60.0 08/27/24 05:37: BUN Cancelled, Creatinine 0.57 L 08/27/24 05:37: Anion Gap Cancelled, BUN 7 08/27/24 05:37: Carbon Dioxide Cancelled, Anion Gap 14.3 08/27/24 05:37: Chloride Cancelled, Carbon Dioxide 21.5 08/27/24 05:37: Potassium Cancelled, Chloride 103 08/27/24 05:37: Sodium Cancelled, Potassium 3.8 08/27/24 05:37: PHA Creatinine Clear Cancelled, Sodium 135 L 08/27/24 05:37: Corrected WBC 5.0, RBC 3.66, Hgb 12.2, Hct 36.1, MCV 98.6, MCH 33.3, MCHC 33.8, RDW 14.1, Plt Count 246, MPV 7.5, PT 10.1, INR 0.9, APTT 28.8, PHA Creatinine Clear 126.99 08/26/24 16:31: POC Glucose 93 08/26/24 14:05: POC Glucose 190 08/26/24 13:41: Sample Site Venous, VBG pH 7.14 L*, VBG pCO2 27.8 L, VBG pO2 49.2 H, VBG HCO3 9.3 L, VBG Total CO2 10.1 L, VBG O2 Saturation 76.9 H, VBG O2 Content 6.8, VBG Base Excess -18.3 L, FiO2 Na, Critical Value 08/26/24 13:28: Urine RBC 1-2, Urine WBC 1-2, Ur Squamous Epith Cells 3-4 H, Urine Bacteria Rare, Hyaline Casts None, Urine Mucus Rare, Urine Opiates Screen Positive H, Ur Barbiturates Screen Negative, Ur Phencyclidine Scrn Negative, Ur Amphetamines Screen Negative, U Benzodiazepines Scrn Negative, Urine Cocaine Screen Negative, U Marijuana (THC) Screen Negative 08/26/24 11:46: B-Hydroxybutyrate 7.12 H Documented By: Heriberto Shin DO 08/27/24 1342 Signed By: <Electronically signed by Heriberto Shin, > 08/27/24 1359 <Electronically signed by Mahnaz Soni> 08/27/24 1347 [facility] Work Phone: evaluation noteNo assessment information available [facility] Work Phone: evaluation noteNo InformationNort SuperLikers Other Evfziimyqo note* Diagnosis Onset Date Resolution Status Acute colitis acute Constipation acute Lactic acidosis acute Microscopic colitis acute Nausea & vomiting acute [facility] Work Phone: evaluwqwle note* Diagnosis Onset Date Resolution Status Change in bowel habits acute Duodenitis resolved Elevated troponin resolved Hypokalemia resolved Hypomagnesemia resolved Syncope resolved [facility] Work Phone: evaluation note* Diagnosis Onset Date Resolution Status Admit Date Abdominal pain acute June 182024 10:47am Hemorrhoids acute June 18, 2024 10:47am Irritable bowel syndrome wit h diarrhea acute June 18 10:47am Nausea & vomiting acute June 18, 2024 10:47am [facility] Work Phone: Evaluation note* Diagnosis Wellness examination- Primary Normal gynecologic examination Screening for cervical cancer Screening for malignant neoplasm of the cervix [facility] Diagnosis Encounter to establish care- Primary Arthralgia, unspecified joint Joint swelling Effusion of joint, site unspecified Other fatigue Family history of thyroid disease Family history of other endocrine and metabolic diseases Screening for thyroid disorder Screening for deficiency anemia Screening for other and unspecified deficiency anemia Elevated liver function tests Other abnormal blood chemistry History of asthma Personal history of other diseases of respiratory system Hiatal hernia Diaphragmatic hernia without mention of obstruction or gangrene Hemorrhoids, unspecified hemorrhoid type Liver mass Unspecified disorder of liver Irritable bowel syndrome with diarrhea Irritable bowel syndrome Hepatic steatosis Other chronic nonalcoholic liver disease Gastritis, presence of bleeding unspecified, unspecified chronicity, unspecified gastritis type Esophagitis Unspecified esophagitis Duodenitis Constipation, unspecified constipation type Colitis Other and unspecified noninfectious gastroenteritis and colitis [facility]* Diagnosis Rectal pain- Primary Anal or rectal pain Rectal bleeding Hemorrhage of rectum and anus Unspecified hemorrhoids [facility]* Diagnosis MONICA (generalized anxiety disorder) ([facility]/HCC) Generalized anxiety disorder Panic disorder ([facility]/HCC) Panic disorder without agoraphobia Severe episode of recurrent major depressive disorder, without psychotic features (HCC) ([facility]/HCC) PTSD (post-traumatic stress disorder) ([facility]) Posttraumatic stress disorder [facility]* Diagnosis Wellness examination- Primary Chronic midline low back pain without sciatica Encounter for initial prescription of contraceptive pills Dizziness Dizziness and giddiness Other headache syndrome Moderate episode of recurrent major depressive disorder ([facility]/HCC) Menses painful Dysmenorrhea PTSD (post-traumatic stress disorder) ([facility]/HCC) Posttraumatic stress disorder Panic disorder ([facility]) Panic disorder without agoraphobia Hiatal hernia Diaphragmatic hernia without mention of obstruction or gangrene Hemorrhoids, unspecified hemorrhoid type Generalized anxiety disorder ([facility]/HCC) Generalized anxiety disorder Rectal bleeding Hemorrhage of rectum and anus Rectal pain Anal or rectal pain Liver mass Unspecified disorder of liver Irritable bowel syndrome with both constipation and diarrhea Hepatic steatosis Other chronic nonalcoholic liver disease Constipation, unspecified constipation type Colitis Other and unspecified noninfectious gastroenteritis and colitis History of asthma Personal history of other diseases of respiratory system documented [facility]* Diagnosis MONICA (generalized anxiety disorder) ([facility]/HCC) Generalized anxiety disorder Panic disorder ([facility]/HCC) Panic disorder without agoraphobia Severe episode of recurrent major depressive disorder, without psychotic features (HCC) ([facility]/HCC) PTSD (post-traumatic stress disorder) ([facility]) Posttraumatic stress disorder documented [facility] this [facility]* Diagnosis MONICA (generalized anxiety disorder) ([facility]/HCC) Generalized anxiety disorder Severe episode of recurrent major depressive disorder, without psychotic features (HCC) ([facility]/HCC) PTSD (post-traumatic stress disorder) (CMS/HCC) Posttraumatic stress disorder Panic disorder (CMS/HCC) Panic disorder without agoraphobia [facility]* Diagnosis Acute pain of left shoulder- Primary Nausea and vomiting, unspecified vomiting type History of colitis Moderate episode of recurrent major depressive disorder (HCC) Acute pain of left shoulder [facility]* Diagnosis Pain of left scapula- Primary Pinched nerve in shoulder, left Trigger point of left shoulder region documented in this [facility]* Diagnosis Chronic daily headache- Primary Headache Migraine with aura and without status migrainosus, not intractable Morning headache Dizziness after extension of neck [facility] Diagnosis Pinched nerve in shoulder, left- Primary Pain of left scapula Neck pain Cervicalgia documented in [facility]* Diagnosis Onset Date Resolution Status Admit Date Irritable bowel syndrome wit h diarrhea acute January 07 3:48pm [facility] Work Phone: Evaluation note* Diagnosis Pain of left scapula- Primary Neck pain Cervicalgia documented [facility]* Diagnosis Pain of left scapula- Primary Neck pain Cervicalgia MONICA (generalized anxiety disorder) Generalized anxiety disorder Severe episode of recurrent major depressive disorder, without psychotic features (HCC) PTSD (post-traumatic stress disorder) Posttraumatic stress disorder Panic disorder Panic disorder without agoraphobia [facility]* Diagnosis Abdominal cramping Abdominal pain, unspecified site Menorrhagia with irregular cycle Missed period Abdominal cramping Abdominal pain, unspecified site Menorrhagia with irregular cycle Missed period MONICA (generalized anxiety disorder) Generalized anxiety disorder Severe episode of recurrent major depressive disorder, without psychotic features (HCC) PTSD (post-traumatic stress disorder) Posttraumatic stress disorder Panic disorder Panic disorder without agoraphobia documented [facility]* Diagnosis MONICA (generalized anxiety disorder) Generalized anxiety disorder Severe episode of recurrent major depressive disorder, without psychotic features (HCC) PTSD (post-traumatic stress disorder) Posttraumatic stress disorder Panic disorder Panic disorder without agoraphobia documented in this encounter [facility] Author Kenrick Gill [facility] May 17, 2023 8:26am Note Date/Time May 17, 2023 8:26am [facility] [address] [place] [address] Gastroenterology H&P Signed Patient: Yane Wallace MR#: [id number] : 1995 Acct:[id number] Age/Sex: 27 / F Adm Date: 3 Loc: Room: Type: [facility] Attending Dr: Kenrick Gill MD Copies to: [...] <Electronically signed by Kenrick Gill MD> 05/17/23825 [facility] Work Phone: History and physical note Author Kenrick Gill [facility] August 31, 2023 8:13am Note Date/Time August 31, 2023 8:1 3am [facility] [address] [place] [address] Gastroenterology H&P Signed Patient: Yane Wallace MR#: [id number] : 1995 Acct:[id number] Age/Sex: 28 / F Adm Date: 4 Loc: Room: Type: [facility] Attending Dr: Kenrick Gill MD Copies to: [...] Gill M.D. Documented By: Kenrick Gill MD 08/31/23 0809 Signed By: <Electronically signed by Kenrick Gill MD> 08/31/23 0813 [facility] Work Phone: History general Narrative - Reported* Type Description Date Medical History Eczema Medical History Asthma Medical History back pain Medical History Ulcerative colitis Medical History Magnesium deficiency Surgical History wisdom teeth Surgical History appendectomy 2019 Hospitalization History Dehydration 02/2022 [facility] Hospital Discharge instructions Additional Instructions DISCHARGE [...] in the office as scheduled -Office number [phone]. [facility] Work Phone: Hospital Discharge instructions Additional Instructions As we discussed, your tests did not show any new findings today. Follow-up with the needle maker is obviously very important. Call to make sure you are on the wait list for cancellations. I will prescribe you medications. I will also give you the number for [facility] in [place], where you can follow-up for this problem as well as for ongoing primary care. Please call in the morning to make an appointment.[facility] Work Phone: Hospital Discharge instructionsAmbulatory Orders* Referral to General Surgery Location: None Selected [facility] Work Phone: InstructionsNot on filedocumented in this encounter [facility]ructionsNot on filedocumented in this encounter [facility] for [facility] (narrative)No reason for referral information available[facility] Work Phone: Reason for visit Narrative* Rehabilitation - Outpatient (Routine) - Authorized Specialty Diagnoses / Procedures Referred By Stephanie t Referred To Contact Physical Therapy Diagnoses Pain of left scapula Neck pain Procedures ID OFFICE/OUTPATIENT NEW HIGH MDM 60 MINUTES Harjeet Pelaez, DORIAN [address] [place] [address] Phone: tel: fax: Kelli Garcia PT Referral ID Status Reason Start Date Expiration Date Visits Requested Visits Authorized [id number] Authorized Specialty Services Required 12/27/2024 06/25/2025 12 12 [facility]* Rehabilitation - Outpatient (Routine) - Authorized Specialty Diagnoses / Procedures Referred By Contac yuliet Referred To Contact Physical Therapy Diagnoses Pain of left scapula Neck pain Procedures ID OFFICE/OUTPATIENT NEW HIGH MDM 60 MINUTES Harjeet Pelaez NP [address] [place] [address] Phone: tel: fax: Kelli Garcia PT Referral ID Status Reason Start Date Expiration Date Visits Requested Visits Authorized [id number] Authorized Specialty Services Required 12/27/2024 05/22/2025 12 12 [facility] Summary Purpose Family History Relationship Condition Age at Onset Recorded Date/T sindi father Diverticulitis Unknown Atrial fibrillation Unknown Relationship Condition Age at Onset Recorded Date/T sindi father Atrial fibrillation Unknown Diverticulitis Unknown Hypertension Unknown Advance Directives Advance Directive Response Recorded Date/ Time Advance [...] ts Duodenitis Elevated troponin Hypokalemia Hypomagnesemia Syncope Chief Complaint abd pain Chief Complaint abd pain K31.89 Chief Complaint Admit Date K31.89 March 22, 2024 6 :36am abd pain, vomiting, lightheaded June 13, 2024 7:00pm Chief Complaint Admit Date K31.89 March 22, 2024 6 :36am abd pain, vomiting, lightheaded June 13, 2024 7:00pm follow up gastric emptying study June 18, 2024 10:47am Reason for Visit Admit Date Abdominal pain June 18, 2024 1 0:47am Hemorrhoids June 18, 2024 1 0:47am Irritable bowel syndrome with diarrhea J anuary 2024 10:47am Nausea & vomiting June 18, 2024 1 0:47am Chief Complaint Admit Date abd pain, vomiting, lightheaded June 13, 2024 7:00pm follow up gastric emptying study June 18, 2024 10:47am Z01.419 Z12.4 June 29, 2024 2 :06pm Chief Complaint Admit Date abd pain, vomiting, lightheaded June 13, 2024 7:00pm follow up gastric emptying study June 18, 2024 10:47am Z01.419 Z12.4 June 29, 2024 2 :06pm 6 week follow up July 23, 2024 10:2 2am Chief Complaint Admit Date abd pain, vomiting, lightheaded June 13, 2024 7:00pm follow up gastric emptying study June 18, 2024 10:47am Z01.419 Z12.4 June 29, 2024 2 :06pm 6 week follow up July 23, 2024 10:2 2am abd pain, vomiting August 26, 2024 3:08 pm Reason for Visit Admit Date Abdominal pain June 18, 2024 1 0:47am Hemorrhoids June 18, 2024 1 0:47am Irritable bowel syndrome with diarrhea J anuary 2024 10:47am Nausea & vomiting June 18, 2024 1 0:47am Abdominal pain July 23, 2024 10:2 2am Hemorrhoids July 23, 2024 10:2 2am Irritable bowel syndrome with diarrhea M arch 2024 10:22am Nausea & vomiting July 23, 2024 10:2 2am Metabolic acidosis August 26, 2024 3:08 pm Nausea & vomiting August 26, 2024 3:08 pm Chief Complaint Admit Date abd pain, vomiting, lightheaded June 13, 2024 7:00pm follow up gastric emptying study June 18, 2024 10:47am Z01.419 Z12.4 June 29, 2024 2 :06pm 6 week follow up July 23, 2024 10:2 2am abd pain, vomiting August 26, 2024 3:08 pm abd pain, vomiting August 27, 2024 7:43 am Reason for Visit Admit Date Abdominal pain June 18, 2024 1 0:47am Hemorrhoids June 18, 2024 1 0:47am Irritable bowel syndrome with diarrhea J anuary 2024 10:47am Nausea & vomiting June 18, 2024 1 0:47am Abdominal pain July 23, 2024 10:2 2am Hemorrhoids July 23, 2024 10:2 2am Irritable bowel syndrome with diarrhea M arch 2024 10:22am Nausea & vomiting July 23, 2024 10:2 2am Hemorrhoids August 26, 2024 3:08 pm Irritable bowel syndrome with diarrhea A pril 2024 3:08pm Metabolic acidosis August 26, 2024 3:08 pm Nausea & vomiting August 26, 2024 3:08 pm Chief Complaint Admit Date follow up January 07, 2025 3: 48pm Reason for Visit Admit Date Irritable bowel syndrome with diarrhea A ugust 2024 3:48pm Additional Source Comments REASON FOR VISIT (unrecogniz ed section and content) Reason Comments Gynecologic Exam Reason Comments New patient appointment Pt saw Dr. Roger in [place] years ago, but had insurance issues and hasn't seen a PCP recently. Pt sees a GI doctor at [facility]. Pt sees him this afternoon. Pt has IBS-d. Possibly gastroparesis. Pt has an appt with a therapist. Pt needs a PCP in order to get medications. Reason Comments Consult Hemorrhoids- Pt has always had pain. Recently noticed blood and pain with going to the bathroom. Specialty Diagnoses / Procedures Referred By Contac t Referred To Contact General Surgery Diagnoses Unspecified hemorrhoids Procedures ID OFFICE/OUTPATIENT [facility] 60 MINUTES Antonio Pompa MD [address] [facility] [address] [place] [address] Phone: tel: [facility] [address] [facility] [address] [place] [address] Phone: tel: fax: Referral ID Status Reason Start Date Expiration Date V isits Requested Visits Authorized [id number] Closed Specialty Services Required 2024 12/17/2024 1 1 Reason Comments Psychiatric Evaluation Specialty Diagnoses / Procedures Referred By Contact Referred To Contact Psychiatry / Behavioral Health Diagnoses Generalized anxiety disorder (CMS/HCC) Panic disorder (episodic paroxysmal anxiety) Major depressive disorder, single episode, moderate (CMS/HCC) Procedures ID UNLISTED EVALUATION AND MANAGEMENT SERVICE Catalino Reina, VELOCITY SHOOTER [address] [place] [address] Phone: tel: fax: Peggy Song, PAPER FINAL INSPECTOR-CAUSTICISER [address] [facility] [address] [place] [address] Phone: tel: fax: Referral ID Status Reason Start Date Expiration Date Visits Re quested Visits Authorized [id number] Closed 07/19/2024 01/15/2025 1 1 Reason Comments Annual Exam Nasal Congestion A lot of PND, vomits at times due to excessive drainage x 3 years Back Pain X years. Took muscle relaxer in past that helped. Pain is all throughout back Reason Comments Med Management Follow-up Reason Comments Shoulder Pain Reason Comments Pain Reason Comments New Patient Specialty Diagnoses / Procedures Referred By Stephanie horvath Referred To Contact Neurology Diagnoses Dizziness Other headache syndrome Procedures ID OFFICE OUTPATIENT VISIT 60-74 MINS HIGH MDM [id number] (SNOMED CT) - AMB REFERRAL TO NEUROLOGY Tiffany Robertson, PAPER FINAL INSPECTOR-CLIENT SERVER PROGRAMMER [address] [place] [address] Phone: tel: fax: Shyam Key MD [facility], [facility] [address] [place] [address] Phone: tel: fax: Referral ID Status Reason Start Date Expiration Date V isits Requested Visits Authorized [id number] Pending Review 08/28/2024 02/24/2025 1 1 Reason Comments Follow-up Reason Onset Date Comments OUT OF NETWORK 01/10/2025 Reason Comments Menorrhagia Pt started bleeding heavy yesterday. Pt has been on control 2 months. Pt can't remember her last period, but normally it isn't heavy. Pt states she saw a sac when she was bleeding and she had an episode about a month and a half ago where she was concerned about missing control Reason Comments Follow-up Med Management PTSD (Post-Traumatic Stress Disorder) Anxiety Depression Reason Onset Date Comments Bronchitiis 01/22/2025 Still ill 01/25/2025 INFORMATION SOURCE (unrecogn ized section and content) DATE CREATED AUTHOR 08/25/2022 [facility] DATE CREATED AUTHOR AUTHOR'S ORGANIZ ATION 03/27/2023 [facility] DATE CREATED AUTHOR AUTHOR'S ORGANIZ ATION 10/29/2023 [facility] DATE CREATED AUTHOR AUTHOR'S ORGANIZ ATION 05/23/2024 [facility] DATE CREATED AUTHOR AUTHOR'S ORGANIZ ATION 09/20/2024 [facility] DATE CREATED AUTHOR AUTHOR'S ORGANIZ ATION 12/26/2024 [facility] DATE CREATED AUTHOR AUTHOR'S ORGANIZ ATION 01/25/2025 [facility] EPIC Care Teams (unrecognized sec tion and content) Team Status: Active Member Role Status Dates ARTHUR Dailey Primary Care Provider Active Team Status: Inactive Member Role Status Dates PHYSICIAN NO FAMILY Primary Care Provider Active Start: June 13, 2024 End: June 13, 2024 Renny Estrada Jr, MD Emergency Provider Active Start: June 13, 2024 End: June 13, 2024 Team Status: Inactive Member Role Status Dates PHYSICIAN NO FAMILY Primary Care Provider Active Start: June 18, 2024 End: June 18, 2024 Antonio Pompa APRN Attending Provider Active Start: June 18, 2024 End: June 18, 2024 Team Status: Inactive Member Role Status Dates PHYSICIAN NO FAMILY Primary Care Provider Active Start: June 29, 2024 End: June 29, 2024 Antonio Pompa APRN Attending Provider Active Start: June 29, 2024 End: June 29, 2024 Team Status: Inactive Member Role Status Dates PHYSICIAN NO FAMILY Primary Care Provider Active Start: July 23, 2024 End: July 23, 2024 Antonio Pompa APRN Attending Provider Active Start: July 23, 2024 End: July 23, 2024 Team Status: Active Member Role Status Dates ARTHUR Dailey Primary Care Provider Active Start: August 26, 2024 Johnnie Arreaga PA-C Emergency Provider Active Start: August 26, 2024 Bailey Cadena MD Admit Provider, Atte nding Provider Active Start: August 26, 2024 Team Status: Active Member Role Status Dates [...] Camelia Roger MD Primary Care Provider Active Antonio Pompa APRN Attending Provider Active Team Status: Active Member Role Status Dates PHYSICIAN NO FAMILY Primary Care Provider Active Team Status: Inactive Member Role Status Dates PHYSICIAN NO FAMILY Primary Care Provider Active Heriberto Shin DO Admit Provider, Attending Provider Active Abel [...] Lg Kurtz MD Other Provider Active Start: [facility] 2023 End: July 29, 2023 Fiona Rowley MD Other Provider Active Start: July 27, 2023 End: July 29, 2023 Mame Conde MD Other Provider Active Start: [facility] [facility] 2023 End: July 29, 2023 Antonio Pompa APRN Other Provider Active St art: July 27, 2023 End: July 29, 2023 Kenrick Gill MD Other Provider Active Start: [facility] 2023 End: July 29, 2023 Sixto Reina MD Other Provider Active Start: [facility] 2023 End: July 29, 2023 Mann Rowley [...] Lg Kurtz MD Other Provider Active Start: [facility] 2023 Fiona Rowley MD Other Provider Active Start: July 27, 2023 Mame Conde MD Other Provider Active Start: [facility] 2023 Antonio Pompa APRN Other Provider Active St art: July 27, 2023 Kenrick Gill MD Other Provider Active Start: [facility] 2023 iSxto Reina MD Other Provider Active Start: [facility] 2023 Team Status: Active Member Role Status [...] Lg Kurtz MD Other Provider Active Start: [facility] 2023 Fiona Rowley MD Other Provider Active Start: July 28, 2023 Mame Conde MD Other Provider Active Start: [facility] 2023 Antonio Pompa APRN Other Provider Active St art: July 28, 2023 Kenrick Gill MD Other Provider Active Start: [facility] 2023 Sixto Reina MD Other Provider Active Start: [facility] 2023 Team Status: Active Member Role Status Dates PHYSICIAN NO FAMILY Primary Care Provider Active Start: July 29, 2023 Bailey Cadena MD Active Start: [facility] 2023 Mann Rowley MD Attending Provider Active [...] Provider Act bertrand Start: August 31, 2023 Team Status: Inactive Member Role Status Dates PHYSICIAN NO FAMILY Primary Care Provider Active Start: March 07, 2024 End: March 07, 2024 Rabia Murrieta DO Emergency Provider Active Sta rt: March 07, 2024 End: March 07, 2024 Team Status: Inactive Member Role Status Dates PHYSICIAN NO FAMILY Primary Care Provider Active Start: March 22, 2024 End: March 22, 2024 Kenrick Gill MD Attending Provider Active Start: March 22, 2024 End: March 22, 2024 Director Of Cardiopulmonary Services Relationship Specialty Start Date End Date Unallocated, Preston Calderon MD [address] [place] [address] PCP - General Family Medicine 08/01/23 Camelia Roger MD [address] [facility] [address] [place] [address] Family Medicine 02/20/23 Director Of Cardiopulmonary Services Relationship Specialty Start Date End Date Unallocated, Preston Calderon MD [address] [place] [address] PCP - General Family Medicine 08/01/23 Camelia Roger MD [address] [facility] [address] [place] [address] Family Medicine 02/20/23 Director Of Cardiopulmonary Services Relationship Specialty Start Date End Date Jossie Aguiar MD [address] [place] [address] PCP - General Family Medicine 07/31/24 Director Of Cardiopulmonary Services Relationship Specialty Start Date End Date Jossie Aguiar MD [address] [place] [address] PCP - General Family Medicine 07/31/24 Director Of Cardiopulmonary Services Relationship Specialty Start Date End Date Jossie Aguiar MD [address] [place] [address] PCP - General Family Medicine 07/31/24 Director Of Cardiopulmonary Services Relationship Specialty Start Date End Date Jossie Aguiar MD [address] [place] [address] PCP - General Family Medicine 07/31/24 Tiffany Robertson NP [address] [facility] [place] [address] Nurse Practitioner Family Medicine 08/14/24 Director Of Cardiopulmonary Services Relationship Specialty Start Date End Date Jossie Aguiar MD [address] [facility] [place] [address] PCP - General Family Medicine 07/31/24 Tiffany Robertson NP [address] [facility] [place] [address] Nurse Practitioner Family Medicine 08/14/24 Kamlesh Bey, [facility] [address] [facility] [address] [place] [address] Nurse Practitioner Behavioral Health 08/20/24 Antonio Pompa MD [address] [facility] 151 [place] [address] Referring Physician Gastroenterology 08/20/24 Team Status: Inactive Member Role Status Dates Tiffany Robertson NP-Treasure Primary Care Provider Active Start: August 26, 2024 End: August 27, 2024 Johnnie Arreaga PA-C Emergency Provider Active Start: August 26, 2024 End: August 27, 2024 Bailey Cadena MD Admit Provider Active Start: August 26, 2024 End: August 27, 2024 Trung Dalal MD Other Provider Active Start : August 26, 2024 End: August 27, 2024 Heriberto Shin DO Attending Provider Active St art: August 26, 2024 End: August 27, 2024 Team Status: Active Member Role Status Dates Tiffany Robertson NP-Treasure Primary Care Provider Active Start: August 27, 2024 Johnnie Arreaga PA-C Emergency Provider Active Start: August 27, 2024 Bailey Cadena MD Admit Provider Active Start: August 27, 2024 Trung Dalal MD Attending Provider, Other Provider Active Start: August 27, 2024 Heriberto Shin DO Other Provider Active Start: August 27, 2024 Director Of Cardiopulmonary Services Relationship Specialty Start Date End Date Jossie Aguiar MD [address] [place] [address] PCP - General Family Medicine 07/31/24 Tiffany Robertson NP [address] [place] [address] Nurse Practitioner Family Medicine 08/14/24 Kamlesh Bey [facility] [address] [facility] [address] [place] [phone] Nurse Practitioner Behavioral Health 08/20/24 Antonio Pompa MD [address] [place] [address] Referring Physician Gastroenterology 08/20/24 Director Of Cardiopulmonary Services Relationship Specialty Start Date End Date Jossie Aguiar MD [address] [place] [address] PCP - General Family Medicine 07/31/24 Tiffany Robertson, DORIAN [address] [place] [address] Nurse Practitioner Family Medicine 08/14/24 [facility] [address] [facility] [address] [place] [address] Nurse Practitioner Behavioral Health 08/20/24 Antonio Pompa MD [address] [place] [address] 151 [place] [address] Referring Physician Gastroenterology 08/20/24 Director Of Cardiopulmonary Services Relationship Specialty Start Date End Date Jossie Aguiar MD [address] [place] [address] PCP - General Family Medicine 07/31/24 Tiffany Robertson, FPGA ENGINEER [address] [place] [address] Nurse Practitioner Family Medicine 08/14/24 [facility] [address] [facility] [address] [place] [phone] Nurse Practitioner Behavioral Health 08/20/24 Antonio Pompa MD [address] [facility] 160 [place] [address] Referring Physician Gastroenterology 08/20/24 Director Of Cardiopulmonary Services Relationship Specialty Start Date End Date Jossie Aguiar MD [address] [place] [address] PCP - General Family Medicine 07/31/24 Tiffany Robertson, FPGA ENGINEER [address] [place] [address] Nurse Practitioner Family Medicine 08/14/24 Kamlesh Bey, [facility] [address] [facility] [address] [place] [address] Nurse Practitioner Behavioral Health 08/20/24 Antonio Pompa MD [address] [facility] [address] [place] [phone] Referring Physician Gastroenterology 08/20/24 Director Of Cardiopulmonary Services Relationship Specialty Start Date End Date Jossie Aguiar MD PCP - General Family Medicine 07/31/24 Tiffany Robertson NP [address] [facility] [place] [address] Nurse Practitioner Family Medicine 08/14/24 [facility] [address] [facility] [address] [place] [address] Nurse Practitioner Behavioral Health 08/20/24 Antonio Pompa MD [address] [facility] [address] [place] [address] Referring Physician Gastroenterology 08/20/24 Director Of Cardiopulmonary Services Relationship Specialty Start Date End Date Jossie Aguiar MD PCP - General Family Medicine 07/31/24 Tiffany Robertson NP [address] [facility] [place] [address] Nurse Practitioner Family Medicine 08/14/24 [facility] [address] [facility] [address] [place] [address] Nurse Practitioner Behavioral Health 08/20/24 Antonio Pompa MD [address] [facility] [address] [place] [address] Referring Physician Gastroenterology 08/20/24 Director Of Cardiopulmonary Services Relationship Specialty Start Date End Date Jossie Aguiar MD PCP - General Family Medicine 07/31/24 Tiffany Robertson NP [address] [facility] [place] [address] Nurse Practitioner Family Medicine 08/14/24 Kamlesh Bey [facility] [address] [facility] [address] [place] [address] Nurse Practitioner Behavioral Health 08/20/24 Antonio Pompa MD [address] [facility] [address] [place] [address] Referring Physician Gastroenterology 08/20/24 Director Of Cardiopulmonary Services Relationship Specialty Start Date End Date Jossie Aguiar MD PCP - General Family Medicine 07/31/24 Tiffany Robertson FP[employer] ENGINEER [address] [place] [address] Nurse Practitioner Family Medicine 08/14/24 [facility] [address] [facility] [address] [place] [address] Nurse Practitioner Behavioral Health 08/20/24 Antonio Pompa MD [address] [facility] [address] [place] [address] Referring Physician Gastroenterology 08/20/24 Director Of Cardiopulmonary Services Relationship Specialty Start Date End Date Jossie Aguiar MD PCP - General Family Medicine 07/31/24 Tiffany Robertson, DORIAN [address] [place] [address] Nurse Practitioner Family Medicine 08/14/24 [facility] [address] [facility] [address] [place] [address] Nurse Practitioner Behavioral Health 08/20/24 Antonio Pompa MD [address] [facility] [address] [place] [address] Referring Physician Gastroenterology 08/20/24 Director Of Cardiopulmonary Services Relationship Specialty Start Date End Date Tiffany Roebrtson NP [address] [facility] [place] [address] Nurse Practitioner Family Medicine 08/14/24 Kamlesh Bey [facility] [address] [address] [place] [address] Nurse Practitioner Behavioral Health 08/20/24 Director Of Cardiopulmonary Services Relationship Specialty Start Date End Date Tiffany Robertson NP [address] [facility] [place] [address] Nurse Practitioner Family Medicine 08/14/24 Kamlesh Bey [facility] [address] [address] [place] [address] Nurse Practitioner Behavioral Health 08/20/24 Director Of Cardiopulmonary Services Relationship Specialty Start Date End Date No Pcp, [place] [address] PCP - General Family Medicine 01/16/23 Director Of Cardiopulmonary Services Relationship Specialty Start Date End Date Tiffany Robertson NP [address] [facility] [place] [address] Nurse Practitioner Family Medicine 08/14/24 Kamlesh Bey [facility] [address] [place] [address] Nurse Practitioner Behavioral Health 08/20/24 Director Of Cardiopulmonary Services Relationship Specialty Start Date End Date Tiffany Robertson NP [address] [facility] [place] [address] Nurse Practitioner Family Medicine 08/14/24 [facility] [address] [facility] [address] [place] [address] Nurse Practitioner [facility] 08/20/24 Team Status: Inactive Member Role Status Dates ARTHUR Dailey Primary Care Provider Active Start: January 07, 2025 End: January 07, 2025 Antonio Pompa APRN Attending Provider Active Start: January 07, 2025 End: January 07, 2025 Director Of Cardiopulmonary Services Relationship Specialty Start Date End Date Tiffany Robertson NP [address] [place] [address] Nurse Practitioner Family Medicine 08/14/24 [facility] [address] [facility] [address] [place] [address] Nurse Practitioner [facility] 08/20/24 Director Of Cardiopulmonary Services Relationship Specialty Start Date End Date Tiffany Robertson NP [address] [facility] [place] [address] Nurse Practitioner Family Medicine 08/14/24 [facility] [address] [facility] [address] [place] [address] Nurse Practitioner [facility] 08/20/24 Director Of Cardiopulmonary Services Relationship Specialty Start Date End Date No Pcp, [place] [address] PCP - General Family Medicine 01/16/23 Director Of Cardiopulmonary Services Relationship Specialty Start Date End Date Tiffany Robertson NP [address] [facility] [place] [address] Nurse Practitioner Family Medicine 08/14/24 [facility] [address] [facility] [address] [place] [address] Nurse Practitioner Behavioral Health 08/20/24 Director Of Cardiopulmonary Services Relationship Specialty Start Date End Date Tiffany Robertson NP [address] [place] [address] Nurse Practitioner Family Medicine 08/14/24 [facility] [address] [facility] [address] [place] [address] Nurse Practitioner Behavioral Health 08/20/24 Director Of Cardiopulmonary Services Relationship Specialty Start Date End Date Tiffany Robertson NP [address] [facility] [place] [address] Nurse Practitioner Family Medicine 08/14/24 [facility] [address] [facility] [address] [place] [address] Nurse Practitioner Behavioral Health 08/20/24 Director Of Cardiopulmonary Services Relationship Specialty Start Date End Date Tiffany Robertson NP [address] [facility] [place] [address] Nurse Practitioner Family Medicine 08/14/24 [facility] [address] [facility] 160 [place] [address] Nurse Practitioner Behavioral Health 08/20/24 Director Of Cardiopulmonary Services Relationship Specialty Start Date End Date Tiffany Robertson NP [address] [facility] [place] [address] Nurse Practitioner Family Medicine 08/14/24 Kamlesh Bey PMHNP-BC [address] [facility] [address] [place] [address] Nurse Practitioner Behavioral Health 08/20/24 Goals (unrecognized section and content) Goals may [...] BE BASED ON THE PRIMARY CLINICAL RECORDS. [facility] [employer] provides no warranty or guarantee of the accuracy or completeness of information in this document.
[2025-01-29 21:05] VITALS: BP 133/111; PULSE 74; TEMP 37.1; O2SAT 98; BMI 26.3
--- NOTE | 2025-01-29 21:15 | CT_ITS ---
The [address] [address] Patient Name: CHRISTINA NUNEZ MRN: [id number] date: 1995 Sex: F Assigned Patient Location: ED.MAIN Current Patient Location: ED.MAIN Accession/Order Number: [id number] Exam Date: 01/29/2025 22:25 Report Date: 01/29/2025 23:14 At the request of: JONATAN SHAW Procedure: CT abdomen pelvis w con CT ABDOMEN AND PELVIS WITH INTRAVENOUS CONTRAST: CLINICAL HISTORY: Diffuse abd pain, vomitting, PMH Ulcerative Colitis COMPARISON: None TECHNIQUE: Spiral images were obtained through the abdomen and pelvis following the administration of intravenous contrast. This CT exam was performed using one or more following dose reduction techniques: Automated exposure control, adjustment of the mA and/or kV according to patient size, or use of iterative reconstruction technique. FINDINGS: Lung Bases: [Lung bases are clear] Organs:Fatty infiltration of the liver. Gallbladder, spleen, adrenals, kidneys, and pancreas unremarkable.[ GI: Submucosal deposition of fat identified involving the colon[is idiopathic process. Mild wall thickening distal colon likely due to under distention. No definite surrounding inflammatory changes or fat stranding.. Postsurgical changes from prior appendectomy. Mild thickening distal esophagus possibly due to esophagitis and/or reflux. Pelvis:[Uterus unremarkable. No adnexal mass. Bladder is unremarkable.] Peritoneum/Retroperitoneum:No free air or free fluid. No bulky adenopathy.[ Abd wall/Bones:No suspicious osseous lesion.[ CT/CT abdomen pelvis w con IMPRESSION: Mild distal esophageal wall thickening perhaps related to esophagitis and or reflux. Wall thickening distal colon likely related to under distention rather than colitis. Otherwise negative for acute inflammatory process or bowel obstruction Impression dictated by: Jonathan Daniel M.D. 01/29/2025 11:14 PM Dictation Location: [facility] Electronically authenticated by: [id number] Y Date: 01/29/2025 23:14
--- NOTE | 2025-01-29 21:19 | ED_ITS ---
Documented by User: COLIN Bee 01/30/25 08:38 HPI HPI - General Adult General Chief complaint: Nausea/Vomiting/Diarrhea Stated complaint: VOMITTING NON STOP FOR HOURS Time Seen by Provider: 01/29/25 21:11 Source: patient Mode of arrival: walk-in History of Present Illness HPI narrative: Patient is a 29-year-old female with a past medical history of ulcerative colitis that she has had for a few years now and has been controlled for about 5 months presents to the emergency department with severe abdominal pain and vomiting for over 12 hours now. She states that she started develop abdominal pain and has been vomiting every 5 minutes since 4 AM last night. She just saw her GI physician last week. She did have Zofran at home but was unable to keep it down secondary to the vomiting. She has a past surgical history of appendectomy. She did have her menstrual period last week. Related Data Home Medications ?Medication ?Instructions ?Recorded ?Confirmed amitriptyline 25 mg tablet 25 mg PO .QHS 01/30/2501/21 norgestimate-ethinyl estradiol 1 tab PO .QD 01/30/25 0 01/30/25 0.18mg/0.215mg/0.25mg-0.035mg(28)tablet (Tri-Sprintec (28)) omeprazole 40 mg capsule,delayed 40 mg PO BID 01/30/25 01/30/25 release ondansetron 4 mg disintegrating 4 mg PO Q8H PRN nausea and vomiting 01/30/25 01/30/25 tablet rizatriptan 10 mg tablet 10 mg PO Q2H PRN migraine he adache 01/30/25 01/30/25 sertraline 100 mg tablet 100 mg PO Q24H 01/30/2501/21 Previous Rx's ?Medication ?Instructions ?Recorded amoxicillin 875 mg-potassium 1 tab PO BID #10 tabs clavulanate 125 mg tablet sennosides 8.6 mg-docusate sodium 2 tab PO QD PRN cons tipation #30 02/02/25 50 mg tablet (Senna Plus) tabs Allergies Allergy/AdvReac Type Severity Reaction Status Date / Time nickel Allergy Intermediate Hives Verified 01/30/25 01:22 ertapenem AdvReac Severe Hallucinati Verified 02/02/25 10:05 ng Opioid HPI Opioid Management Most Recent Opioid Data: Last Pain Scale 1 02/02/25, 09:51 Last Pain Assessment 01/30/25, 01:50 Last MAR Pain Assessment 01/29/25, 21:27 Last ORT Total Score 0 01/30/25, 01:02 Last ORT Risk Category Low Risk 01/30/25, 01:02 Ur Phencyclidine Scrn, (NEGATIVE) Negative , 02:00 Review of Systems ROS Status of ROS 10 or more systems reviewed and unremark able except as noted in history and below [facility] Medical History (Updated 02/01/25 @ 08:39 by Sylvester Almaguer MD) Gallstones ?K80.20 - Calculus of gallbladder without cholecystitis without obstruction (ICD-10) Asthma ?J45.909 - Unspecified asthma, uncomplicated (ICD-10) Biliary colic ?K80.50 - Calculus of bile duct without cholangitis or cholecystitis without obstruction (ICD-10) Intractable nausea and vomiting ?R11.2 - Nausea with vomiting, unspecified (ICD-10) Dehydration ?E86.0 - Dehydration (ICD-10) Tachycardia ?R00.0 - Tachycardia, unspecified (ICD-10) Abdominal pain ?R10.9 - Unspecified abdominal pain (ICD-10) Surgical History Hx of appendectomy ?Z90.49 - Acquired absence of other specified parts of digestive tract (ICD- 10) Family History Grandfather Family history of cancer Grandfather No problems noted. Grandmother Family history of cancer Family history of myocardial infarction Social History (Updated 01/30/25 @ 01:17 by Yane Keller RN) Within the past year, how often did you have a drink containing alcohol: 2-3 times a week Within the past year, how many standard drinks containing alcohol did you have on a typical day: 1 or 2 Within the past year, how often did you have six or more drinks on one occasion: less than monthly Total score: 1 Score interpretation: A score of 3 or more indicates drinking is likely to affect patient's safety. 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 Known occupational exposures/hazards: No Highest level of school completed/degree received: some college, no degree Do you want help with school or training: No In a typical week, how many times do you talk on the telephone with family, friends, or neighbors: 3 or more times per week How often do you get together with friends or relatives: 3 or more times per week How often do you attend nondenominational or mosque services: never Do you belong to any clubs or organizations such as nondenominational groups unions, fraternal or athletic groups, or school groups: no Little interest or pleasure in doing things: not at all Feeling down, depressed, or hopeless: not at all Feel stressed/tense/nervous/anxious/difficulty sleeping: only a little Life stressors: divorce/separation Due to disability, difficulty making decisions: No Do you think of yourself as: straight/heterosexual Gender Identity: female Exam Narrative Exam Narrative: General: In pain, hunched over on ED cart gripping abdomen, age-appropriate Skin: Warm, dry, no pallor. No rash. Head: Normocephalic, atraumatic. Neck: Supple, non-tender. Eye: Pupils are equal, round and EOMI. No scleral icterus. Ears, Nose, Mouth, and Throat: No nasal mucosal hypertrophy. Oral mucosa is moist, no posterior oropharynx erythema, uvula is mid-line Cardiovascular: Regular Rate and Rhythm without murmur, gallop or rub. Respiratory: No accessory muscle use or respiratory distress. Lungs are clear to auscultation, no wheezing, rales or rhonchi Chest Wall: no tenderness Back: No midline thoracic or lumbar vertebral tenderness. Musculoskeletal: Full ROM of all extremities, no calf or popliteal tenderness GI: Abdomen is soft, distended, tender to palpation diffusely. No masses appreciated. No rebound, guarding, or rigidity noted. Neurological: A&O x4. No cranial nerve dysfunction observed. No truncal ataxia. Moves all extremities. Sensation intact. Psychiatric: Cooperative and interactive. Normal mood and affect. Constitutional Vital Signs, click to edit/add: Last Vital Signs Temp 99.7 F 02/02/25 06:00 Pulse 126 H 02/02/25 06:00 Resp 18 02/02/25 06:00 BP 113/76 02/02/25 06:00 Pulse Ox 95 02/02/25 06:00 O2 Del Method Room Air 02/02/25 06:00 Course Course Hospital Course: Mrs Wallace is a 29-year-old female who with nausea, vomiting and abdominal pain. She was found to have the following: Acute pancreatitis. Unknown trigger. Patient denied any alcohol consumption. Could have been caused by passed gallstone. Resolving SIRS present on admission, severe lactic acidosis, abdominal pain, nausea and vomiting. Resolved Bacteremia. 1 out of 2 blood culture is coming back positive for Streptococcus which is probably secondary to bacterial translocation secondary to pancreatitis Continue IV fluid infusion. Completed MRCP does not show any common bile duct stone or cholecystectomy LFTs are trending back down. Lipase is trending down significantly Significant improvement and resolution of her abdominal pain and tenderness Complete resolution of nausea and vomiting Consideration for elective cholecystectomy. To be addressed in the outpatient setting by Dr. Gill. Patient follows up with him regularly regarding her liver disease Ertapenem will be changed to ceftriaxone due to acute delirium as listed below. Patient will be discharged home on oral Augmentin. Repeat blood culture on 01/31 thus far is negative. Acute delirium that developed last evening manifested by confusion, visual hallucination. Likely caused by ertapenem. Discontinued ertapenem and started her on ceftriaxone. Completely resolved Esophagitis seen on CT Continue PPI intravenously twice a day. Patient is on PPI at home Pancreatitis and/or opiates induced ileus Resolved. Patient has had multiple bowel movements. Elevated LFTs. History of fatty infiltration of the liver for which patient follows up with Dr. Gill Acute elevation could be related to sepsis or reactive to acute pancreatitis or possibility of passed common bile duct stone. Patient has had this similar episode in the past. No alcohol consumption. Elevation mostly on behalf of the indirect bilirubin. Alk phos is normal. Bilirubin is trending up Transaminase are elevated as well. Trending back to normal Hepatitis panel is negative Jay screen is negative FERNY is negative. Smooth muscle antibody is negative Acetaminophen level is negative. Patient is to follow-up with Dr. Gill. Vaping Counseling and education to quit Hypomagnesemia and hypophosphatemia. Resolved, corrected Additional potassium, phosphorus and magnesium supplementation. Depression and anxiety. Patient is on SSRI that could cause cholestasis picture. Reduce the dose of sertraline DVT prophy Lovenox subcu Chronic medical conditions not listed above, incidental findings seen on labs and imaging. These would need to be addressed. Could be addressed when time and condition are appropriate. Could be addressed in the outpatient setting by PCP collaboration with other needed outpatient providers. Patient has multiple medical issues as listed above and others that are not listed. All appear to be stable. Patient is feeling great. Significant resolution of her abdominal tenderness. Complete resolution of nausea and vomiting. Significant correction of her metabolic derangement as listed above. LFTs and lipase are trending down. Low phosphorus and magnesium have been corrected. I do not have any clear or strong clinical justification to extend inpatient hospitalization. Patient however will require close and frequent monitoring as well as additional work-up, investigation and therapeutic intervention that could take place from this point on post discharge. That is to prevent relapse, decompensation, rehospitalization and other medical implications. I instructed patient to ask her primary care doctor to obtain [facility] record entirely to address abnormalities seen on labs and imaging that I have and have not addressed during this hospitalization, follow-up on pending blood work, imaging and pathology is if available and to follow-up on needed medical care in the outpatient setting. Vital Signs Vital signs: Vital Signs Temperature 98.7 F 01/29/25 21:05 Pulse Rate 74 01/29/25 21:05 Respiratory Rate 18 01/29/25 21:05 Blood Pressure 133/111 H 01/29/25 21:05 Pulse Oximetry 98 01/29/25 21:05 Oxygen Delivery Method Room Air 01/29/25 21:05 Temperature 99.7 F 02/02/25 06:00 Pulse Rate 126 H 02/02/25 06:00 Respiratory Rate 18 02/02/25 06:00 Blood Pressure 113/76 02/02/25 06:00 Pulse Oximetry 95 02/02/25 06:00 Oxygen Delivery Method Room Air 02/02/25 06:00 Medical Decision Making MDM Narrative Medical decision making narrative: Patient is a 29-year-old female with a PMH of ulcerative colitis that presents with complaints of severe abdominal pain and vomiting since approximately 4 AM. That is approximately 16 hours since the start of the vomiting. She states that has been happening about every 5 minutes. PSH of Appendectomy. She did just see her GI specialist and everything has been going well and she has not had a flareup for about 5 months. She does have Zofran at home but was unable to keep this down secondary to the vomiting. She denies hematemesis and is not having any diarrhea. She had her last menstrual cycle last week she thinks. On arrival her vitals are stable. She is hunched over on the ED cart, it is hard to examine her abdomen but it appears diffusely tender distended, nonperitoneal. IV placed. 1 L NS ordered. Zofran and Dilaudid IVF. Labs ordered and CT abdomen/pelvis with contrast ordered. At this time, 2200 patient's care was signed out and handed over to Dr Corcoran. Differential Diagnosis Differential Diagnosis: Perforation, UC Flare, toxic megacolon, bowel obstruction Lab Data Labs: Lab Results 01/29/25 01/30/25 01/30/25 Range/Units 21:20 02:00 02:21 WBC 9.9 (4.0-11.0) 10^3/uL RBC 4.22 (4.20-5.40) 10^6/uL Hgb 14.6 (12.0-16.0) g/dL Hct 42.6 (36.0-48.0) % MCV 100.9 H (81.0-99.0) fL MCH 34.6 H (26.7-34.0) pg MCHC 34.3 (29.9-35.2) g/dL RDW 12.4 (11.0-15.0) % Plt Count 234 (150-450) 10^3/uL MPV 9.3 L (9.5-13.5) fL Seg Neuts % (Manual) 95.0 H (43.0-75.0) Lymphocytes % (Manual) 5.0 L (20.5-60.0) % Monocytes % (Manual) 0.0 L (1.7-12.0) % Eosinophils % (Manual) 0.0 L (0.9-7.0) % Basophils % (Manual) 0.0 L (0.2-2.0) % Neutrophils # (Manual) 9.40 H (1.4-6.5) 10^3/uL Lymphocytes # (Manual) 0.49 L (1.20-3.80) 10^3/uL Monocytes # (Manual) 0.00 L (0.30-0.80) 10^3/uL Eosinophils # (Manual) 0.00 (0.00-0.70) 10^3/uL Basophils # (Manual) 0.00 (0.00-0.10) 10^3/uL PT (9.0-11.6) sec INR Sodium 141 (136-145) mmol/L Potassium 4.1 (3.5-5.1) mmol/L Chloride 98 (98-107) mmol/L Carbon Dioxide 18.8 L (21.0-32.0) mmol/L Anion Gap 28.3 BUN 8.0 (7.0-18.0) mg/dL Creatinine 0.81 (0.55-1.02) mg/dL Est GFR ( Amer) >60 (>=60 mL/min/1.73m^2) Est GFR (Non-Af Amer) >60 (>=60 mL/min/1.73m^2) BUN/Creatinine Ratio 9.9 Glucose 117 H (74-106) mg/dL Lactate 5.2 H* 1.5 (0.4-2.0) mmol/L Calcium 9.3 (8.5-10.1) mg/dL Phosphorus (2.6-4.7) mg/dL Magnesium (1.8-2.4) mg/dL Total Bilirubin 3.1 H (0.2-1.0) mg/dL Direct Bilirubin 1.0 H* (0.0-0.2) mg/dL AST 296 H (15-37) U/L ALT 112 H (14-59) U/L Alkaline Phosphatase 98 (46-116) U/L Ammonia (11-32) umol/L C-Reactive Protein <0.50 (<=0.50) mg/dL Total Protein 8.2 (6.4-8.2) g/dL Albumin 3.9 (3.4-5.0) g/dL Globulin 4.3 g/dL Albumin/Globulin Ratio 0.9 Lipase 99.0 H (16.0-77.0) U/L Serum HCG, Qual Negative (NEGATIVE) Urine Color Lt. yellow (YELLOW) Urine Clarity Clear (CLEAR) Urine pH 6.0 (5.0-9.0) Ur Specific [place] 1.015 (1.005-1.025) Urine Protein Negative (NEG/TRACE) mg/dL Urine Glucose (UA) Negative (NEGATIVE) mg/dL Urine Ketones >=80 A (NEGATIVE) mg/dL Urine Occult Blood Negative (NEGATIVE) Urine Nitrite Negative (NEGATIVE) Urine Bilirubin Negative (NEGATIVE) Urine Urobilinogen 0.2 (0.2-1.0) EU/dL Ur Leukocyte Esterase Negative (NEGATIVE) Urine RBC 0-2 (0-2) #/HPF Urine WBC 0-2 A (NONE SEEN) #/HPF Ur Squamous Epith Cells Few A (NONE/RARE) #/LPF Urine Crystals None seen (None Seen) #/HPF Urine Bacteria None seen (NONE SEEN) #/HPF Urine Casts None seen (NONE SEEN) #/LPF Urine Mucus Trace A (NONE SEEN) Ur Culture Indicated? No Urine Opiates Screen Positive A (NEGATIVE) Ur Buprenorphine Scrn Negative (NEGATIVE) Ur Oxycodone Screen Negative (NEGATIVE) Urine Methadone Screen Negative (NEGATIVE) Acetaminophen (10.0-30.0) ug/mL Ur Barbiturates Screen Negative (NEGATIVE) U Tricyclic Antidepress Negative (NEGATIVE) Ur Phencyclidine Scrn Negative (NEGATIVE) Ur Amphetamines Screen Negative (NEGATIVE) U Methamphetamines Scrn Negative (NEGATIVE) U Benzodiazepines Scrn Negative (NEGATIVE) Urine Cocaine Screen Negative (NEGATIVE) U Cannabinoids Screen Negative (NEGATIVE) FERNY Screen (Negative) Anti-Smooth Muscle Ab (0-19) Units Specimen Source A.calcoaceticus-baumannii cmplx PCR (NOT DETECTE) Bacteroides fragilis (NOT DETECTE) Pamela albicans (PCR) (NOT DETECTE) Pamela auris (PCR) (NOT DETECTE) C. glabrata (PCR) (NOT DETECTE) C. krusei (PCR) (NOT DETECTE) C. parapsilosis (PCR) (NOT DETECTE) C. tropicalis (PCR) (NOT DETECTE) C. neoform/gattii (PCR) (NOT DETECTE) Enterobacterales (PCR) (NOT DETECTE) E. cloacae complex PCR (NOT DETECTE) Enterococc faecalis PCR (NOT DETECTE) Enterococc faecium PCR (NOT DETECTE) E. coli (PCR) (NOT DETECTE) H. influenzae (PCR) (NOT DETECTE) Hepatitis A IgM Ab (Negative) Hep Bs Antigen (Negative) Hep B Core IgM Ab (Negative) Hepatitis C Antibody (Non Reactive) Hepatitis C Interp (.) Monoscreen (NEGATIVE) Klebsiella aerogenes (PCR) (NOT DETECTE) Klebsiella oxytoca PCR (NOT DETECTE) K. pneumoniae group (PCR) (NOT DETECTE) List. monocytogenes PCR (NOT DETECTE) N. meningitidis (PCR) (NOT DETECTE) Proteus spp. (copies/mL) (NOT DETECTE) Salmonella spp. (PCR) (NOT DETECTE) Serratia marcescens PCR (NOT DETECTE) Staphylococcus sp PCR (NOT DETECTE) Staph aureus (PCR) (NOT DETECTE) mecA/C & MREJ Resist Gene (NOT DETECTE) mecA/C-Methicil Resis Gene (NOT DETECTE) mcr-1 Colistin Res Gene PCR (NOT DETECTE) Staph epidermidis (PCR) (NOT DETECTE) Staph lugdunensis (TEM-PCR) (NOT DETECTE) S. maltophilia (PCR) (NOT DETECTE) Streptococcus sp PCR (NOT DETECTE) Strep agalactiae (PCR) (NOT DETECTE) Strep pneumoniae (PCR) (NOT DETECTE) S. pyogenes (PCR) (NOT DETECTE) P. aeruginosa (PCR) (NOT DETECTE) Kyle/B-Vanco Res Genes (NOT DETECTE) blaIMP Car res Gene PCR (NOT DETECTE) KPC (blaKPC) Detect PCR (NOT DETECTE) NDM (blaNDM) Detect PCR (NOT DETECTE) OXA-48 Carbapenem Resis Gene (PCR) (NOT DETECTE) blaVIM Car Res Gene PCR (NOT DETECTE) CTX-M ESBL (PCR) (NOT DETECTE) 01/30/25 01/30/25 Range/Units 02:25 03:16 WBC (4.0-11.0) 10^3/uL RBC (4.20-5.40) 10^6/uL Hgb (12.0-16.0) g/dL Hct (36.0-48.0) % MCV (81.0-99.0) fL MCH (26.7-34.0) pg MCHC (29.9-35.2) g/dL RDW (11.0-15.0) % Plt Count (150-450) 10^3/uL MPV (9.5-13.5) fL Seg Neuts % (Manual) (43.0-75.0) Lymphocytes % (Manual) (20.5-60.0) % Monocytes % (Manual) (1.7-12.0) % Eosinophils % (Manual) (0.9-7.0) % Basophils % (Manual) (0.2-2.0) % Neutrophils # (Manual) (1.4-6.5) 10^3/uL Lymphocytes # (Manual) (1.20-3.80) 10^3/uL Monocytes # (Manual) (0.30-0.80) 10^3/uL Eosinophils # (Manual) (0.00-0.70) 10^3/uL Basophils # (Manual) (0.00-0.10) 10^3/uL PT 11.3 (9.0-11.6) sec INR 1.07 Sodium 141 (136-145) mmol/L Potassium 4.2 (3.5-5.1) mmol/L Chloride 104 (98-107) mmol/L Carbon Dioxide 17.0 L (21.0-32.0) mmol/L Anion Gap 24.2 BUN 4.0 L (7.0-18.0) mg/dL Creatinine 0.62 (0.55-1.02) mg/dL Est GFR ( Amer) >60 (>=60 mL/min/1.73m^2) Est GFR (Non-Af Amer) >60 (>=60 mL/min/1.73m^2) BUN/Creatinine Ratio 6.5 Glucose 92 (74-106) mg/dL Lactate (0.4-2.0) mmol/L Calcium 7.6 L (8.5-10.1) mg/dL Phosphorus 2.4 L (2.6-4.7) mg/dL Magnesium 1.3 L (1.8-2.4) mg/dL Total Bilirubin 2.5 H (0.2-1.0) mg/dL Direct Bilirubin 0.8 H* (0.0-0.2) mg/dL AST 188 H (15-37) U/L ALT 89 H (14-59) U/L Alkaline Phosphatase 75 (46-116) U/L Ammonia <10 L (11-32) umol/L C-Reactive Protein <0.50 (<=0.50) mg/dL Total Protein 6.8 (6.4-8.2) g/dL Albumin 3.1 L (3.4-5.0) g/dL Globulin 3.7 g/dL Albumin/Globulin Ratio 0.8 Lipase 173.0 H (16.0-77.0) U/L Serum HCG, Qual (NEGATIVE) Urine Color (YELLOW) Urine Clarity (CLEAR) Urine pH (5.0-9.0) Ur Specific [place] (1.005-1.025) Urine Protein (NEG/TRACE) mg/dL Urine Glucose (UA) (NEGATIVE) mg/dL Urine Ketones (NEGATIVE) mg/dL Urine Occult Blood (NEGATIVE) Urine Nitrite (NEGATIVE) Urine Bilirubin (NEGATIVE) Urine Urobilinogen (0.2-1.0) EU/dL Ur Leukocyte Esterase (NEGATIVE) Urine RBC (0-2) #/HPF Urine WBC (NONE SEEN) #/HPF Ur Squamous Epith Cells (NONE/RARE) #/LPF Urine Crystals (None Seen) #/HPF Urine Bacteria (NONE SEEN) #/HPF Urine Casts (NONE SEEN) #/LPF Urine Mucus (NONE SEEN) Ur Culture Indicated? Urine Opiates Screen (NEGATIVE) Ur Buprenorphine Scrn (NEGATIVE) Ur Oxycodone Screen (NEGATIVE) Urine Methadone Screen (NEGATIVE) Acetaminophen <2.0 L (10.0-30.0) ug/mL Ur Barbiturates Screen (NEGATIVE) U Tricyclic Antidepress (NEGATIVE) Ur Phencyclidine Scrn (NEGATIVE) Ur Amphetamines Screen (NEGATIVE) U Methamphetamines Scrn (NEGATIVE) U Benzodiazepines Scrn (NEGATIVE) Urine Cocaine Screen (NEGATIVE) U Cannabinoids Screen (NEGATIVE) FERNY Screen Negative (Negative) Anti-Smooth Muscle Ab 5 (0-19) Units Specimen Source Blood A.calcoaceticus-baumannii cmplx PCR Not detected (NOT DETECTE) Bacteroides fragilis Not detected (NOT DETECTE) Pamela albicans (PCR) Not detected (NOT DETECTE) Pamela auris (PCR) Not detected (NOT DETECTE) C. glabrata (PCR) Not detected (NOT DETECTE) C. krusei (PCR) Not detected (NOT DETECTE) C. parapsilosis (PCR) Not detected (NOT DETECTE) C. tropicalis (PCR) Not detected (NOT DETECTE) C. neoform/gattii (PCR) Not detected (NOT DETECTE) Enterobacterales (PCR) Not detected (NOT DETECTE) E. cloacae complex PCR Not detected (NOT DETECTE) Enterococc faecalis PCR Not detected (NOT DETECTE) Enterococc faecium PCR Not detected (NOT DETECTE) E. coli (PCR) Not detected (NOT DETECTE) H. influenzae (PCR) Not detected (NOT DETECTE) Hepatitis A IgM Ab Negative (Negative) Hep Bs Antigen Negative (Negative) Hep B Core IgM Ab Negative (Negative) Hepatitis C Antibody Non reactive (Non Reactive) Hepatitis C Interp Comment (.) Monoscreen Negative (NEGATIVE) Klebsiella aerogenes (PCR) Not detected (NOT DETECTE) Klebsiella oxytoca PCR Not detected (NOT DETECTE) K. pneumoniae group (PCR) Not detected (NOT DETECTE) List. monocytogenes PCR Not detected (NOT DETECTE) N. meningitidis (PCR) Not detected (NOT DETECTE) Proteus spp. (copies/mL) Not detected (NOT DETECTE) Salmonella spp. (PCR) Not detected (NOT DETECTE) Serratia marcescens PCR Not detected (NOT DETECTE) Staphylococcus sp PCR Not detected (NOT DETECTE) Staph aureus (PCR) Not detected (NOT DETECTE) mecA/C & MREJ Resist Gene Not applicable (NOT DETECTE) mecA/C-Methicil Resis Gene Not applicable (NOT DETECTE) mcr-1 Colistin Res Gene PCR Not applicable (NOT DETECTE) Staph epidermidis (PCR) Not detected (NOT DETECTE) Staph lugdunensis (TEM-PCR) Not detected (NOT DETECTE) S. maltophilia (PCR) Not detected (NOT DETECTE) Streptococcus sp PCR Detected A* (NOT DETECTE) Strep agalactiae (PCR) Not detected (NOT DETECTE) Strep pneumoniae (PCR) Not detected (NOT DETECTE) S. pyogenes (PCR) Not detected (NOT DETECTE) P. aeruginosa (PCR) Not detected (NOT DETECTE) Kyle/B-Vanco Res Genes Not applicable (NOT DETECTE) blaIMP Car res Gene PCR Not applicable (NOT DETECTE) KPC (blaKPC) Detect PCR Not applicable (NOT DETECTE) NDM (blaNDM) Detect PCR Not applicable (NOT DETECTE) OXA-48 Carbapenem Resis Gene (PCR) Not applicable (NOT DETECTE) blaVIM Car Res Gene PCR Not applicable (NOT DETECTE) CTX-M ESBL (PCR) Not applicable (NOT DETECTE) Discharge Plan Discharge Chief Complaint: Nausea/Vomiting/Diarrhea Clinical Impression: Nausea & vomiting, Elevated liver enzymes, Abdominal pain, Acute lactic acidosis Patient Disposition: Admitted as Observation Discharge Date/Time: 01/30/25 01:10 Documented by User: Titi Corcoran MD 02/03/25 23:16 HPI HPI - General Adult General Chief complaint: Nausea/Vomiting/Diarrhea Stated complaint: VOMITTING NON STOP FOR HOURS Time Seen by Provider: 01/29/25 21:11 Related Data Home Medications ?Medication ?Instructions ?Recorded ?Confirmed amitriptyline 25 mg tablet 25 mg PO .QHS 01/30/2501/21 norgestimate-ethinyl estradiol 1 tab PO .QD 01/30/25 0 01/30/25 0.18mg/0.215mg/0.25mg-0.035mg(28)tablet (Tri-Sprintec (28)) omeprazole 40 mg capsule,delayed 40 mg PO BID 01/30/25 01/30/25 release ondansetron 4 mg disintegrating 4 mg PO Q8H PRN nausea and vomiting 01/30/25 01/30/25 tablet rizatriptan 10 mg tablet 10 mg PO Q2H PRN migraine he adache 01/30/25 01/30/25 sertraline 100 mg tablet 100 mg PO Q24H 01/30/2501/21 Previous Rx's ?Medication ?Instructions ?Recorded amoxicillin 875 mg-potassium 1 tab PO BID #10 tabs clavulanate 125 mg tablet sennosides 8.6 mg-docusate sodium 2 tab PO QD PRN cons tipation #30 02/02/25 50 mg tablet (Senna Plus) tabs Allergies Allergy/AdvReac Type Severity Reaction Status Date / Time nickel Allergy Intermediate Hives Verified 01/30/25 01:22 ertapenem AdvReac Severe Hallucinati Verified 02/02/25 10:05 ng Opioid HPI Opioid Management Most Recent Opioid Data: Last Pain Scale 1 02/02/25, 09:51 Last Pain Assessment 01/30/25, 01:50 Last MAR Pain Assessment 01/29/25, 21:27 Last ORT Total Score 0 01/30/25, 01:02 Last ORT Risk Category Low Risk 01/30/25, 01:02 Ur Phencyclidine Scrn, (NEGATIVE) Negative , 02:00 PFSH PFSH Medical History (Updated 02/01/25 @ 08:39 by Sylvester Almaguer MD) Gallstones ?K80.20 - Calculus of gallbladder without cholecystitis without obstruction (ICD-10) Asthma ?J45.909 - Unspecified asthma, uncomplicated (ICD-10) Biliary colic ?K80.50 - Calculus of bile duct without cholangitis or cholecystitis without obstruction (ICD-10) Intractable nausea and vomiting ?R11.2 - Nausea with vomiting, unspecified (ICD-10) Dehydration ?E86.0 - Dehydration (ICD-10) Tachycardia ?R00.0 - Tachycardia, unspecified (ICD-10) Abdominal pain ?R10.9 - Unspecified abdominal pain (ICD-10) Surgical History Hx of appendectomy ?Z90.49 - Acquired absence of other specified parts of digestive tract (ICD- 10) Family History Grandfather Family history of cancer Grandfather No problems noted. Grandmother Family history of cancer Family history of myocardial infarction Social History (Updated 01/30/25 @ 01:17 by Yane Keller RN) Within the past year, how often did you have a drink containing alcohol: 2-3 times a week Within the past year, how many standard drinks containing alcohol did you have on a typical day: 1 or 2 Within the past year, how often did you have six or more drinks on one occasion: less than monthly Total score: 1 Score interpretation: A score of 3 or more indicates drinking is likely to affect patient's safety. 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 Known occupational exposures/hazards: No Highest level of school completed/degree received: some college, no degree Do you want help with school or training: No In a typical week, how many times do you talk on the telephone with family, friends, or neighbors: 3 or more times per week How often do you get together with friends or relatives: 3 or more times per week How often do you attend nondenominational or mosque services: never Do you belong to any clubs or organizations such as nondenominational groups unions, fraternal or athletic groups, or school groups: no Little interest or pleasure in doing things: not at all Feeling down, depressed, or hopeless: not at all Feel stressed/tense/nervous/anxious/difficulty sleeping: only a little Life stressors: divorce/separation Due to disability, difficulty making decisions: No Do you think of yourself as: straight/heterosexual Gender Identity: female Exam Constitutional Vital Signs, click to edit/add: Last Vital Signs Temp 99.7 F 02/02/25 06:00 Pulse 126 H 02/02/25 06:00 Resp 18 02/02/25 06:00 BP 113/76 02/02/25 06:00 Pulse Ox 95 02/02/25 06:00 O2 Del Method Room Air 02/02/25 06:00 Course Course Hospital Course: Mrs Wallace is a 29-year-old female who with nausea, vomiting and abdominal pain. She was found to have the following: Acute pancreatitis. Unknown trigger. Patient denied any alcohol consumption. Could have been caused by passed gallstone. Resolving SIRS present on admission, severe lactic acidosis, abdominal pain, nausea and vomiting. Resolved Bacteremia. 1 out of 2 blood culture is coming back positive for Streptococcus which is probably secondary to bacterial translocation secondary to pancreatitis Continue IV fluid infusion. Completed MRCP does not show any common bile duct stone or cholecystectomy LFTs are trending back down. Lipase is trending down significantly Significant improvement and resolution of her abdominal pain and tenderness Complete resolution of nausea and vomiting Consideration for elective cholecystectomy. To be addressed in the outpatient setting by Dr. Gill. Patient follows up with him regularly regarding her liver disease Ertapenem will be changed to ceftriaxone due to acute delirium as listed below. Patient will be discharged home on oral Augmentin. Repeat blood culture on 01/31 thus far is negative. Acute delirium that developed last evening manifested by confusion, visual hallucination. Likely caused by ertapenem. Discontinued ertapenem and started her on ceftriaxone. Completely resolved Esophagitis seen on CT Continue PPI intravenously twice a day. Patient is on PPI at home Pancreatitis and/or opiates induced ileus Resolved. Patient has had multiple bowel movements. Elevated LFTs. History of fatty infiltration of the liver for which patient follows up with Dr. Gill Acute elevation could be related to sepsis or reactive to acute pancreatitis or possibility of passed common bile duct stone. Patient has had this similar episode in the past. No alcohol consumption. Elevation mostly on behalf of the indirect bilirubin. Alk phos is normal. Bili parker is trending up Transaminase are elevated as well. Trending back to normal Hepatitis panel is negative Jay screen is negative FERNY is negative. Smooth muscle antibody is negative Acetaminophen level is negative. Patient is to follow-up with Dr. Gill. Vaping Counseling and education to quit Hypomagnesemia and hypophosphatemia. Resolved, corrected Additional potassium, phosphorus and magnesium supplementation. Depression and anxiety. Patient is on SSRI that could cause cholestasis picture. Reduce the dose of sertraline DVT prophy Lovenox subcu Chronic medical conditions not listed above, incidental findings seen on labs and imaging. These would need to be addressed. Could be addressed when time and condition are appropriate. Could be addressed in the outpatient setting by PCP collaboration with other needed outpatient providers. Patient has multiple medical issues as listed above and others that are not listed. All appear to be stable. Patient is feeling great. Significant resolution of her abdominal tenderness. Complete resolution of nausea and vomiting. Significant correction of her metabolic derangement as listed above. LFTs and lipase are trending down. Low phosphorus and magnesium have been corrected. I do not have any clear or strong clinical justification to extend inpatient hospitalization. Patient however will require close and frequent monitoring as well as additional work-up, investigation and therapeutic intervention that could take place from this point on post discharge. That is to prevent relapse, decompensation, rehospitalization and other medical implications. I instructed patient to ask her primary care doctor to obtain [facility] record entirely to address abnormalities seen on labs and imaging that I have and have not addressed during this hospitalization, follow-up on pending blood work, imaging and pathology is if available and to follow-up on needed medical care in the outpatient setting. Vital Signs Vital signs: Vital Signs Temperature 98.7 F 01/29/25 21:05 Pulse Rate 74 01/29/25 21:05 Respiratory Rate 18 01/29/25 21:05 Blood Pressure 133/111 H 01/29/25 21:05 Pulse Oximetry 98 01/29/25 21:05 Oxygen Delivery Method Room Air 01/29/25 21:05 Temperature 99.7 F 02/02/25 06:00 Pulse Rate 126 H 02/02/25 06:00 Respiratory Rate 18 02/02/25 06:00 Blood Pressure 113/76 02/02/25 06:00 Pulse Oximetry 95 02/02/25 06:00 Oxygen Delivery Method Room Air 02/02/25 06:00 Medical Decision Making MDM Narrative Medical decision making narrative: Patient is a 29-year-old female with a PMH of ulcerative colitis that presents with complaints of severe abdominal pain and vomiting since approximately 4 AM. That is approximately 16 hours since the start of the vomiting. She states that has been happening about every 5 minutes. PSH of Appendectomy. She did just see her GI specialist and everything has been going well and she has not had a flareup for about 5 months. She does have Zofran at home but was unable to keep this down secondary to the vomiting. She denies hematemesis and is not having any diarrhea. She had her last menstrual cycle last week she thinks. On arrival her vitals are stable. She is hunched over on the ED cart, it is hard to examine her abdomen but it appears diffusely tender distended, nonperitoneal. IV placed. 1 L NS ordered. Zofran and Dilaudid IVF. Labs ordered and CT abdomen/pelvis with contrast ordered. At this time, 2200 patient's care was signed out and handed over to Dr Corcoran. care transferred at end of PA shift. CT returned with findings of fatty liver infiltration. Gallbladder, spleen, adrenals and kidneys and pancreas unremarkable. mild distal esophageal wall thickening perhaps related to esophagitis or reflux. wall thickening distal colon likely related to underdistention rather than colitis. Labs returned with elevated bili and LFTs similar to past visits. Alk phos normal and lipase elevated as well as Lactic acid. Patient treated wtih cocktail of valium , reglan and benadryl and is now feeling better. Abdomen with mild nonspecific tenderness. Discussed with hospitalist Dr Almaguer and he has accepted the patient for obs admission Lab Data Labs: Lab Results 01/29/25 01/30/25 01/30/25 Range/Units 21:20 02:00 02:21 WBC 9.9 (4.0-11.0) 10^3/uL RBC 4.22 (4.20-5.40) 10^6/uL Hgb 14.6 (12.0-16.0) g/dL Hct 42.6 (36.0-48.0) % MCV 100.9 H (81.0-99.0) fL MCH 34.6 H (26.7-34.0) pg MCHC 34.3 (29.9-35.2) g/dL RDW 12.4 (11.0-15.0) % Plt Count 234 (150-450) 10^3/uL MPV 9.3 L (9.5-13.5) fL Seg Neuts % (Manual) 95.0 H (43.0-75.0) Lymphocytes % (Manual) 5.0 L (20.5-60.0) % Monocytes % (Manual) 0.0 L (1.7-12.0) % Eosinophils % (Manual) 0.0 L (0.9-7.0) % Basophils % (Manual) 0.0 L (0.2-2.0) % Neutrophils # (Manual) 9.40 H (1.4-6.5) 10^3/uL Lymphocytes # (Manual) 0.49 L (1.20-3.80) 10^3/uL Monocytes # (Manual) 0.00 L (0.30-0.80) 10^3/uL Eosinophils # (Manual) 0.00 (0.00-0.70) 10^3/uL Basophils # (Manual) 0.00 (0.00-0.10) 10^3/uL PT (9.0-11.6) sec INR Sodium 141 (136-145) mmol/L Potassium 4.1 (3.5-5.1) mmol/L Chloride 98 (98-107) mmol/L Carbon Dioxide 18.8 L (21.0-32.0) mmol/L Anion Gap 28.3 BUN 8.0 (7.0-18.0) mg/dL Creatinine 0.81 (0.55-1.02) mg/dL Est GFR ( Amer) >60 (>=60 mL/min/1.73m^2) Est GFR (Non-Af Amer) >60 (>=60 mL/min/1.73m^2) BUN/Creatinine Ratio 9.9 Glucose 117 H (74-106) mg/dL Lactate 5.2 H* 1.5 (0.4-2.0) mmol/L Calcium 9.3 (8.5-10.1) mg/dL Phosphorus (2.6-4.7) mg/dL Magnesium (1.8-2.4) mg/dL Total Bilirubin 3.1 H (0.2-1.0) mg/dL Direct Bilirubin 1.0 H* (0.0-0.2) mg/dL AST 296 H (15-37) U/L ALT 112 H (14-59) U/L Alkaline Phosphatase 98 (46-116) U/L Ammonia (11-32) umol/L C-Reactive Protein <0.50 (<=0.50) mg/dL Total Protein 8.2 (6.4-8.2) g/dL Albumin 3.9 (3.4-5.0) g/dL Globulin 4.3 g/dL Albumin/Globulin Ratio 0.9 Lipase 99.0 H (16.0-77.0) U/L Serum HCG, Qual Negative (NEGATIVE) Urine Color Lt. yellow (YELLOW) Urine Clarity Clear (CLEAR) Urine pH 6.0 (5.0-9.0) Ur Specific [place] 1.015 (1.005-1.025) Urine Protein Negative (NEG/TRACE) mg/dL Urine Glucose (UA) Negative (NEGATIVE) mg/dL Urine Ketones >=80 A (NEGATIVE) mg/dL Urine Occult Blood Negative (NEGATIVE) Urine Nitrite Negative (NEGATIVE) Urine Bilirubin Negative (NEGATIVE) Urine Urobilinogen 0.2 (0.2-1.0) EU/dL Ur Leukocyte Esterase Negative (NEGATIVE) Urine RBC 0-2 (0-2) #/HPF Urine WBC 0-2 A (NONE SEEN) #/HPF Ur Squamous Epith Cells Few A (NONE/RARE) #/LPF Urine Crystals None seen (None Seen) #/HPF Urine Bacteria None seen (NONE SEEN) #/HPF Urine Casts None seen (NONE SEEN) #/LPF Urine Mucus Trace A (NONE SEEN) Ur Culture Indicated? No Urine Opiates Screen Positive A (NEGATIVE) Ur Buprenorphine Scrn Negative (NEGATIVE) Ur Oxycodone Screen Negative (NEGATIVE) Urine Methadone Screen Negative (NEGATIVE) Acetaminophen (10.0-30.0) ug/mL Ur Barbiturates Screen Negative (NEGATIVE) U Tricyclic Antidepress Negative (NEGATIVE) Ur Phencyclidine Scrn Negative (NEGATIVE) Ur Amphetamines Screen Negative (NEGATIVE) U Methamphetamines Scrn Negative (NEGATIVE) U Benzodiazepines Scrn Negative (NEGATIVE) Urine Cocaine Screen Negative (NEGATIVE) U Cannabinoids Screen Negative (NEGATIVE) FERNY Screen (Negative) Anti-Smooth Muscle Ab (0-19) Units Specimen Source A.calcoaceticus-baumannii cmplx PCR (NOT DETECTE) Bacteroides fragilis (NOT DETECTE) Pamela albicans (PCR) (NOT DETECTE) Pamela auris (PCR) (NOT DETECTE) C. glabrata (PCR) (NOT DETECTE) C. krusei (PCR) (NOT DETECTE) C. parapsilosis (PCR) (NOT DETECTE) C. tropicalis (PCR) (NOT DETECTE) C. neoform/gattii (PCR) (NOT DETECTE) Enterobacterales (PCR) (NOT DETECTE) E. cloacae complex PCR (NOT DETECTE) Enterococc faecalis PCR (NOT DETECTE) Enterococc faecium PCR (NOT DETECTE) E. coli (PCR) (NOT DETECTE) H. influenzae (PCR) (NOT DETECTE) Hepatitis A IgM Ab (Negative) Hep Bs Antigen (Negative) Hep B Core IgM Ab (Negative) Hepatitis C Antibody (Non Reactive) Hepatitis C Interp (.) Monoscreen (NEGATIVE) Klebsiella aerogenes (PCR) (NOT DETECTE) Klebsiella oxytoca PCR (NOT DETECTE) K. pneumoniae group (PCR) (NOT DETECTE) List. monocytogenes PCR (NOT DETECTE) N. meningitidis (PCR) (NOT DETECTE) Proteus spp. (copies/mL) (NOT DETECTE) Salmonella spp. (PCR) (NOT DETECTE) Serratia marcescens PCR (NOT DETECTE) Staphylococcus sp PCR (NOT DETECTE) Staph aureus (PCR) (NOT DETECTE) mecA/C & MREJ Resist Gene (NOT DETECTE) mecA/C-Methicil Resis Gene (NOT DETECTE) mcr-1 Colistin Res Gene PCR (NOT DETECTE) Staph epidermidis (PCR) (NOT DETECTE) Staph lugdunensis (TEM-PCR) (NOT DETECTE) S. maltophilia (PCR) (NOT DETECTE) Streptococcus sp PCR (NOT DETECTE) Strep agalactiae (PCR) (NOT DETECTE) Strep pneumoniae (PCR) (NOT DETECTE) S. pyogenes (PCR) (NOT DETECTE) P. aeruginosa (PCR) (NOT DETECTE) Kyle/B-Vanco Res Genes (NOT DETECTE) blaIMP Car res Gene PCR (NOT DETECTE) KPC (blaKPC) Detect PCR (NOT DETECTE) NDM (blaNDM) Detect PCR (NOT DETECTE) OXA-48 Carbapenem Resis Gene (PCR) (NOT DETECTE) blaVIM Car Res Gene PCR (NOT DETECTE) CTX-M ESBL (PCR) (NOT DETECTE) 01/30/25 01/30/25 Range/Units 02:25 03:16 WBC (4.0-11.0) 10^3/uL RBC (4.20-5.40) 10^6/uL Hgb (12.0-16.0) g/dL Hct (36.0-48.0) % MCV (81.0-99.0) fL MCH (26.7-34.0) pg MCHC (29.9-35.2) g/dL RDW (11.0-15.0) % Plt Count (150-450) 10^3/uL MPV (9.5-13.5) fL Seg Neuts % (Manual) (43.0-75.0) Lymphocytes % (Manual) (20.5-60.0) % Monocytes % (Manual) (1.7-12.0) % Eosinophils % (Manual) (0.9-7.0) % Basophils % (Manual) (0.2-2.0) % Neutrophils # (Manual) (1.4-6.5) 10^3/uL Lymphocytes # (Manual) (1.20-3.80) 10^3/uL Monocytes # (Manual) (0.30-0.80) 10^3/uL Eosinophils # (Manual) (0.00-0.70) 10^3/uL Basophils # (Manual) (0.00-0.10) 10^3/uL PT 11.3 (9.0-11.6) sec INR 1.07 Sodium 141 (136-145) mmol/L Potassium 4.2 (3.5-5.1) mmol/L Chloride 104 (98-107) mmol/L Carbon Dioxide 17.0 L (21.0-32.0) mmol/L Anion Gap 24.2 BUN 4.0 L (7.0-18.0) mg/dL Creatinine 0.62 (0.55-1.02) mg/dL Est GFR ( Amer) >60 (>=60 mL/min/1.73m^2) Est GFR (Non-Af Amer) >60 (>=60 mL/min/1.73m^2) BUN/Creatinine Ratio 6.5 Glucose 92 (74-106) mg/dL Lactate (0.4-2.0) mmol/L Calcium 7.6 L (8.5-10.1) mg/dL Phosphorus 2.4 L (2.6-4.7) mg/dL Magnesium 1.3 L (1.8-2.4) mg/dL Total Bilirubin 2.5 H (0.2-1.0) mg/dL Direct Bilirubin 0.8 H* (0.0-0.2) mg/dL AST 188 H (15-37) U/L ALT 89 H (14-59) U/L Alkaline Phosphatase 75 (46-116) U/L Ammonia <10 L (11-32) umol/L C-Reactive Protein <0.50 (<=0.50) mg/dL Total Protein 6.8 (6.4-8.2) g/dL Albumin 3.1 L (3.4-5.0) g/dL Globulin 3.7 g/dL Albumin/Globulin Ratio 0.8 Lipase 173.0 H (16.0-77.0) U/L Serum HCG, Qual (NEGATIVE) Urine Color (YELLOW) Urine Clarity (CLEAR) Urine pH (5.0-9.0) Ur Specific [place] (1.005-1.025) Urine Protein (NEG/TRACE) mg/dL Urine Glucose (UA) (NEGATIVE) mg/dL Urine Ketones (NEGATIVE) mg/dL Urine Occult Blood (NEGATIVE) Urine Nitrite (NEGATIVE) Urine Bilirubin (NEGATIVE) Urine Urobilinogen (0.2-1.0) EU/dL Ur Leukocyte Esterase (NEGATIVE) Urine RBC (0-2) #/HPF Urine WBC (NONE SEEN) #/HPF Ur Squamous Epith Cells (NONE/RARE) #/LPF Urine Crystals (None Seen) #/HPF Urine Bacteria (NONE SEEN) #/HPF Urine Casts (NONE SEEN) #/LPF Urine Mucus (NONE SEEN) Ur Culture Indicated? Urine Opiates Screen (NEGATIVE) Ur Buprenorphine Scrn (NEGATIVE) Ur Oxycodone Screen (NEGATIVE) Urine Methadone Screen (NEGATIVE) Acetaminophen <2.0 L (10.0-30.0) ug/mL Ur Barbiturates Screen (NEGATIVE) U Tricyclic Antidepress (NEGATIVE) Ur Phencyclidine Scrn (NEGATIVE) Ur Amphetamines Screen (NEGATIVE) U Methamphetamines Scrn (NEGATIVE) U Benzodiazepines Scrn (NEGATIVE) Urine Cocaine Screen (NEGATIVE) U Cannabinoids Screen (NEGATIVE) FERNY Screen Negative (Negative) Anti-Smooth Muscle Ab 5 (0-19) Units Specimen Source Blood A.calcoaceticus-baumannii cmplx PCR Not detected (NOT DETECTE) Bacteroides fragilis Not detected (NOT DETECTE) Pamela albicans (PCR) Not detected (NOT DETECTE) Pamela auris (PCR) Not detected (NOT DETECTE) C. glabrata (PCR) Not detected (NOT DETECTE) C. krusei (PCR) Not detected (NOT DETECTE) C. parapsilosis (PCR) Not detected (NOT DETECTE) C. tropicalis (PCR) Not detected (NOT DETECTE) C. neoform/gattii (PCR) Not detected (NOT DETECTE) Enterobacterales (PCR) Not detected (NOT DETECTE) E. cloacae complex PCR Not detected (NOT DETECTE) Enterococc faecalis PCR Not detected (NOT DETECTE) Enterococc faecium PCR Not detected (NOT DETECTE) E. coli (PCR) Not detected (NOT DETECTE) H. influenzae (PCR) Not detected (NOT DETECTE) Hepatitis A IgM Ab Negative (Negative) Hep Bs Antigen Negative (Negative) Hep B Core IgM Ab Negative (Negative) Hepatitis C Antibody Non reactive (Non Reactive) Hepatitis C Interp Comment (.) Monoscreen Negative (NEGATIVE) Klebsiella aerogenes (PCR) Not detected (NOT DETECTE) Klebsiella oxytoca PCR Not detected (NOT DETECTE) K. pneumoniae group (PCR) Not detected (NOT DETECTE) List. monocytogenes PCR Not detected (NOT DETECTE) N. meningitidis (PCR) Not detected (NOT DETECTE) Proteus spp. (copies/mL) Not detected (NOT DETECTE) Salmonella spp. (PCR) Not detected (NOT DETECTE) Serratia marcescens PCR Not detected (NOT DETECTE) Staphylococcus sp PCR Not detected (NOT DETECTE) Staph aureus (PCR) Not detected (NOT DETECTE) mecA/C & MREJ Resist Gene Not applicable (NOT DETECTE) mecA/C-Methicil Resis Gene Not applicable (NOT DETECTE) mcr-1 Colistin Res Gene PCR Not applicable (NOT DETECTE) Staph epidermidis (PCR) Not detected (NOT DETECTE) Staph lugdunensis (TEM-PCR) Not detected (NOT DETECTE) S. maltophilia (PCR) Not detected (NOT DETECTE) Streptococcus sp PCR Detected A* (NOT DETECTE) Strep agalactiae (PCR) Not detected (NOT DETECTE) Strep pneumoniae (PCR) Not detected (NOT DETECTE) S. pyogenes (PCR) Not detected (NOT DETECTE) P. aeruginosa (PCR) Not detected (NOT DETECTE) Kyle/B-Vanco Res Genes Not applicable (NOT DETECTE) blaIMP Car res Gene PCR Not applicable (NOT DETECTE) KPC (blaKPC) Detect PCR Not applicable (NOT DETECTE) NDM (blaNDM) Detect PCR Not applicable (NOT DETECTE) OXA-48 Carbapenem Resis Gene (PCR) Not applicable (NOT DETECTE) blaVIM Car Res Gene PCR Not applicable (NOT DETECTE) CTX-M ESBL (PCR) Not applicable (NOT DETECTE) Discharge Plan Discharge Chief Complaint: Nausea/Vomiting/Diarrhea Clinical Impression: Nausea & vomiting, Elevated liver enzymes, Abdominal pain, Acute lactic acidosis Patient Disposition: Admitted as Observation Discharge Date/Time: 01/30/25 01:10
[2025-01-29] MEDS: HYDROMORPHONE HCL 1 MG/ML CARTRIDGE IV ×2 (21:27→22:12)
[2025-01-29] MEDS: 0.9 % SODIUM CHLORIDE 1,000 ML 999 ML IV (21:27)
[2025-01-29 21:57] LABS: Hematocrit 42.6 % (36.0-48.0); Hemoglobin 14.6 g/dL (12.0-16.0); Mean Corpuscular HGB Conc 34.3 g/dL (29.9-35.2); Mean Corpuscular Hemoglobin 34.6 pg (26.7-34.0); Mean Corpuscular Volume 100.9 fL (81.0-99.0); Platelet Count 234 10^3/uL (150-450); Red Blood Count 4.22 10^6/uL (4.20-5.40); White Blood Count 9.9 10^3/uL (4.0-11.0)
[2025-01-29 22:23] LABS: Lymphocytes Absolute Manual 0.49 10^3/uL (1.20-3.80); Lymphocytes Percent Manual 5.0 % (20.5-60.0); Segmented Neut Absolute Manual 9.40 10^3/uL (1.4-6.5); Segmented Neutrophils % Manual 95.0 (43.0-75.0)
[2025-01-29 22:24] LABS: Alanine Aminotransferase 112 U/L (14-59); Albumin Globulin Ratio 0.9; Albumin Level 3.9 g/dL (3.4-5.0); Alkaline Phosphatase 98 U/L (46-116); Anion Gap 28.3; Aspartate Amino Transferase 296 U/L (15-37); Basophils Abs Manual 0.00 10^3/uL (0.00-0.10); Basophils Percent Manual 0.0 % (0.2-2.0); Blood Urea Nitrogen 8.0 mg/dL (7.0-18.0); Calcium 9.3 mg/dL (8.5-10.1); Carbon Dioxide 18.8 mmol/L (21.0-32.0); Chloride 98 mmol/L (98-107); Eosinophils Absolute Manual 0.00 10^3/uL (0.00-0.70); Eosinophils Percent Manual 0.0 % (0.9-7.0); Estimated GFR (African America >60 (>=60 mL/min/1.73m^2); Estimated GFR (Non-African Ame >60 (>=60 mL/min/1.73m^2); Globulin 4.3 g/dL; Glucose 117 mg/dL (74-106); Monocytes Absolute Manual 0.00 10^3/uL (0.30-0.80); Monocytes Percent Manual 0.0 % (1.7-12.0); Potassium 4.1 mmol/L (3.5-5.1); Sodium 141 mmol/L (136-145); Total Protein 8.2 g/dL (6.4-8.2)
[2025-01-29 22:28] LABS: Lipase 99.0 U/L (16.0-77.0)
--- NOTE | 2025-01-29 22:36 | PC.NURSE ---
Lab called critical result of 1.[address] Corcoran informed
[2025-01-29] MEDS: 0.9 % SODIUM CHLORIDE 1,000 ML 1000 ML IV (22:56)
[2025-01-29] MEDS: METOCLOPRAMIDE HCL 10 MG/2 ML VIAL IVP (23:58)
[2025-01-29] MEDS: DIPHENHYDRAMINE HCL 50 MG/ML VIAL IVP (23:58)
[2025-01-29] MEDS: DIAZEPAM 10 MG/2 ML SYRINGE 5 MG IV (23:59)
[2025-01-30] VITALS (9 sets, daily range): BP systolic 125–151; BP diastolic 67–89; PULSE 78–107; TEMP 36.4–37; O2SAT 95–99; BMI 29.5
--- NOTE | 2025-01-30 00:18 | PC.NURSE ---
Pt states that she is pain free and no nausea.
[2025-01-30 00:19] LABS: Lactate/Lactic Acid 5.2 mmol/L (0.4-2.0)
[2025-01-30] MEDS: 0.9 % SODIUM CHLORIDE 1,000 ML 999 ML IV (01:31)
--- NOTE | 2025-01-30 02:12 | MR_ITS ---
[facility] [place] [id number] Patient Name: CHRISTINA NUNEZ MRN: [id number] date: 1995 Sex: F Assigned Patient Location: [place] Current Patient Location: [place] Accession/Order Number: [id number] Exam Date: 01/30/2025 11:50 Report Date: 01/30/2025 14:22 At the request of: KATARZYNA MOORE MD Procedure: MR abdomen wo con MRI OF THE ABDOMEN WITHOUT CONTRAST: CLINICAL HISTORY: Hi LFT r/o CBD obstruction. R/o liver lesion patho COMPARISON: Abdomen 03/03/2023 TECHNIQUE: Multisequence, multiplanar imaging of the abdomen was obtained without the use of IV contrast. FINDINGS: Hepatic steatosis. Liver appears normal in contour. No focal T2 abnormality is seen to suggest underlying mass. Gallbladder appears unremarkable. No CBD dilatation. MRCP imaging is nondiagnostic. 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 No measurable pancreatic fluid collection is seen. Spleen is grossly unremarkable. Adrenal glands are grossly unremarkable. Kidneys appear unremarkable. Aorta appears normal in caliber. No bulky lymphadenopathy or ascites. No pleural effusion. MR/MR abdomen wo con IMPRESSION: MRI EVIDENCE OF GROOVE PANCREATITIS. CORRELATION WITH LIPASE LEVEL IS SUGGESTED. NO EVIDENCE OF BILIARY OBSTRUCTION. Impression dictated by: Jarett Roach Jr., D.O. 01/30/2025 2:22 PM Dictation Location: [place] [address] Electronically authenticated by: [id number] Y Date: 01/30/2025 14:22
[2025-01-30 02:14] LABS: Glucose Urine UA NEGATIVE (NEGATIVE)
[2025-01-30 02:17] LABS: Cannabinoid Screen Urine NEGATIVE (NEGATIVE); Methamphetamines Screen Urine NEGATIVE (NEGATIVE); Tricyclic Antidepressant Urine NEGATIVE (NEGATIVE)
[2025-01-30 02:23] LABS: Cast Seen? NONE SEEN #/LPF (NONE SEEN); Crystals Seen? None Seen #/HPF (None Seen); Urine Culture Indicated NO
[2025-01-30 03:41] LABS: INR 1.07; Prothrombin Time 11.3 sec (9.0-11.6)
[2025-01-30 03:44] LABS: Ammonia <10 umol/L (11-32)
[2025-01-30] MEDS: ERTAPENEM SODIUM 1 GM in 0.9 % SODIUM CHLORIDE 50 ML IV (03:45)
[2025-01-30] MEDS: PANTOPRAZOLE SODIUM 40 MG VIAL IV ×2 (03:46→17:11)
[2025-01-30] MEDS: HYDROMORPHONE HCL 0.5 MG/0.5 ML SYRINGE IV ×3 (03:46→17:10)
[2025-01-30 03:55] LABS: Lactate/Lactic Acid 1.5 mmol/L (0.4-2.0)
[2025-01-30 04:02] LABS: Alanine Aminotransferase 89 U/L (14-59); Albumin Globulin Ratio 0.8; Albumin Level 3.1 g/dL (3.4-5.0); Alkaline Phosphatase 75 U/L (46-116); Anion Gap 24.2; Aspartate Amino Transferase 188 U/L (15-37); Blood Urea Nitrogen 4.0 mg/dL (7.0-18.0); Calcium 7.6 mg/dL (8.5-10.1); Carbon Dioxide 17.0 mmol/L (21.0-32.0); Chloride 104 mmol/L (98-107); Estimated GFR (African America >60 (>=60 mL/min/1.73m^2); Estimated GFR (Non-African Ame >60 (>=60 mL/min/1.73m^2); Globulin 3.7 g/dL; Glucose 92 mg/dL (74-106); Lipase 173.0 U/L (16.0-77.0); Potassium 4.2 mmol/L (3.5-5.1); Sodium 141 mmol/L (136-145); Total Protein 6.8 g/dL (6.4-8.2)
[2025-01-30 04:05] LABS: Acetaminophen <2.0 ug/mL (10.0-30.0)
[2025-01-30 07:35] LABS: Magnesium 1.3 mg/dL (1.8-2.4)
--- NOTE | 2025-01-30 08:05 | CM.NOTE ---
Rounds made with Dr. Almaguer, discussed with pt reason for admission, lab finding and radiology scans. Pt will have MRI today for further information. No discharge today. Clarified status with Dr. Almaguer, pt will be inpatient status.
--- NOTE | 2025-01-30 08:52 | P.HP_ITS ---
HPI H&P: HPI History of Present Illness Chief complaint: ABDOMINAL PAIN Narrative: Mrs. Wallace is a 29-year-old female with a known diagnosis ulcerative colitis and fatty liver disease. Patient came in with nausea, vomiting and diffuse abdominal discomfort. No fever or chills. No hematemesis or melena. No bowel movement. Patient was found to have significant lactic acidosis and elevation of her LFTs. Patient is feeling better today. Still no bowel movement. No chest pain or pa lpitation. No cough or congestion. Opioid HPI Opioid Management Most Recent Pain and Opioid Data: 2 Last Pain Scale 4 Today, 08:30 Last Pain Assessment Today, 01:50 Last MAR Pain Assessment 01/29/25, 21:27 Last ORT Total Score 0 Today, 01:02 Last ORT Risk Category Low Risk Today, :02 Ur Phencyclidine Scrn, (NEGATIVE) Negative Today, 02:00 [facility] Medical History (Updated 01/30/25 @ 00:39 by Titi Corcoran MD) Gallstones ?K80.20 - Calculus of gallbladder without cholecystitis without obstruction (ICD-10) Asthma ?J45.909 - Unspecified asthma, uncomplicated (ICD-10) Biliary colic ?K80.50 - Calculus of bile duct without cholangitis or cholecystitis without obstruction (ICD-10) Intractable nausea and vomiting ?R11.2 - Nausea with vomiting, unspecified (ICD-10) Dehydration ?E86.0 - Dehydration (ICD-10) Tachycardia ?R00.0 - Tachycardia, unspecified (ICD-10) Abdominal pain ?R10.9 - Unspecified abdominal pain (ICD-10) Surgical History Hx of appendectomy ?Z90.49 - Acquired absence of other specified parts of digestive tract (ICD- 10) Family History Grandfather Family history of cancer Grandfather No problems noted. Grandmother Family history of cancer Family history of myocardial infarction Social History (Updated 01/30/25 @ 01:17 by Yane Keller RN) Within the past year, how often did you have a drink containing alcohol: 2-3 times a week Within the past year, how many standard drinks containing alcohol did you have on a typical day: 1 or 2 Within the past year, how often did you have six or more drinks on one occasion: less than monthly Total score: 1 Score interpretation: A score of 3 or more indicates drinking is likely to affect patient's safety. 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 Known occupational exposures/hazards: No Highest level of school completed/degree received: some college, no degree Do you want help with school or training: No In a typical week, how many times do you talk on the telephone with family, friends, or neighbors: 3 or more times per week How often do you get together with friends or relatives: 3 or more times per week How often do you attend catholic or uatsdin services: never Do you belong to any clubs or organizations such as catholic groups unions, [place] or athletic groups, or school groups: no Little interest or pleasure in doing things: not at all Feeling down, depressed, or hopeless: not at all Feel stressed/tense/nervous/anxious/difficulty sleeping: only a little Life stressors: divorce/separation Due to disability, difficulty making decisions: No Do you think of yourself as: straight/heterosexual Gender Identity: female Meds Home Medications and Allergies Home Medications ?Medication ?Instructions ?Recorded ?Confirmed ?Type amitriptyline 25 mg tablet 25 mg PO .QHS 01/30/2501/21 History norgestimate-ethinyl estradiol 1 tab PO .QD 01/30/25 0 01/30/25 History 0.18mg/0.215mg/0.25mg-0.035mg(28)tablet (Tri-Sprintec (28)) omeprazole 40 mg capsule,delayed 40 mg PO BID 01/30/25 01/30/25 History release ondansetron 4 mg disintegrating 4 mg PO Q8H PRN nausea and vomiting 01/30/25 01/30/25 History tablet rizatriptan 10 mg tablet 10 mg PO Q2H PRN migraine he adache 01/30/25 01/30/25 History sertraline 100 mg tablet 100 mg PO Q24H 01/30/2501/21 History Allergies Allergy/AdvReac Type Severity Reaction Status Date / Time nickel Allergy Intermediate Hives Verified 01/30/25 01:22 Exam Narrative Exam Narrative: [pt is awake and alert. oriented to place, time and person HEENT: [place] conjunctiva and NL buccal mucosa Neck: Supple, no tenderness Endocrine: No Thyromegaly. Vascular: No JVD or carotid bruit. Lymphatic: No cervical lymphadenopathy. Chest: CTA no DTP. Heart RRR, no extra sound or murmur. Abd: Soft, mild diffuse tenderness in the abdomen including right upper quadrant, epigastric and periumbilical area. No rebound and no rigidity. Increase abd girth therefore clinically I could not exclude the possibility of intra abd mass or organomegaly. LE: No cyanosis or clubbing, no varices or edema. Neuro: A A O. Nl speech, comprehension and attention. Nl and symetrical motor and tone examination through out. []] Constitutional Vital Signs, click to edit/add: Last Vital Signs Temp 97.6 F 01/30/25 07:37 Pulse 100 H 01/30/25 07:37 Resp 16 01/30/25 07:37 BP 136/80 01/30/25 07:37 Pulse Ox 98 01/30/25 07:37 O2 Del Method Room Air 01/30/25 07:37 Results Labs Labs: Short CBC 01/29/25 Range/Units 21:20 WBC 9.9 (4.0-11.0) 10^3/uL Hgb 14.6 (12.0-16.0) g/dL Hct 42.6 (36.0-48.0) % Plt Count 234 (150-450) 10^3/uL BMP 01/29/25 01/30/25 21:20 03:16 Sodium 141 141 Potassium 4.1 4.2 Chloride 98 104 Carbon Dioxide 18.8 L 17.0 L BUN 8.0 4.0 L Creatinine 0.81 0.62 Glucose 117 H 92 Calcium 9.3 7.6 L Liver Function 01/29/25 01/30/25 Range/Units 21:20 03:16 Total Bilirubin 3.1 H 2.5 H (0.2-1.0) mg/dL Direct Bilirubin 1.0 H* 0.8 H* (0.0-0.2) mg/dL AST 296 H 188 H (15-37) U/L ALT 112 H 89 H (14-59) U/L Alkaline Phosphatase 98 75 (46-116) U/L Albumin 3.9 3.1 L (3.4-5.0) g/dL Urine 01/30/25 Range/Units 02:00 Urine Color Lt. yellow (YELLOW) Urine Clarity Clear (CLEAR) Urine pH 6.0 (5.0-9.0) Ur Specific [place] 1.015 (1.005-1.025) Urine Protein Negative (NEG/TRACE) mg/dL Urine Glucose (UA) Negative (NEGATIVE) mg/dL Assessment and Plan Assessment and Plan (1) Acute lactic acidosis: (2) Abdominal pain: (3) Dehydration: (4) Elevated liver enzymes: Plan SIRS present on admission, severe lactic acidosis, abdominal pain, nausea and vomiting. Likely related to acute presentation with vomiting and abdominal pain C-reactive protein is less than 0.50 Patient was noted to have elevation of liver enzymes. Sepsis workup is in progress. Blood cultures pending. Improvement of nausea and vomiting as well as the severity of her abdominal pain. Resolution of elevated lactic acid. Continue antibiotic and IV fluid infusion Elevated LFTs. Elevated lipase suspect acute pancreatitis. History of fatty infiltration of the liver for which patient follows up with Dr. Gill Patient has had this similar episode in the past. No alcohol consumption. Elevation mostly on behalf of the indirect bilirubin. Alk phos is normal. Transaminase are elevated as well CAT scan showed normal appearance of the gallbladder and liver. Requested MRCP rule out common bile duct stone or any other liver, gallbladder pathology Continue to monitor LFTs and lipase level. Requested hepatitis viral panel Requested mononucleosis Continue intravenous antibiotic Vaping Counseling and education to quit Hypomagnesemia and hypophosphatemia Potassium and magnesium supplementation. Depression and anxiety. Patient is on SSRI that could cause cholestasis picture. Reduce the dose of sertraline DVT prophy Lovenox subcu
[2025-01-30 09:42] LABS: Mono Screen NEGATIVE (NEGATIVE)
[2025-01-30] MEDS: OXYCODONE HCL 5 MG TABLET PO ×2 (09:50→19:44)
[2025-01-30] MEDS: ENOXAPARIN SODIUM 40 MG/0.4 ML SYRINGE SUBQ (09:50)
[2025-01-30] MEDS: MAGNESIUM SULFATE IN WATER 2 GM/50 ML PREMIX IV (09:50)
[2025-01-30] MEDS: SOD PHOSPHATE,MONOBASIC-DIBAS 30 MMOL in 0.9 % SODIUM CHLORIDE 250 ML 43.333 MMOL IV (11:05)
[2025-01-30] MEDS: DICYCLOMINE HCL 20 MG/2 ML VIAL IM (11:06)
[2025-01-30] MEDS: DICYCLOMINE HCL 10 MG CAPSULE PO ×2 (17:02→22:44)
[2025-01-30] MEDS: MAGNESIUM SULFATE/D5W 1 GM/100 ML PREMIX IV (17:11)
[2025-01-30 20:55] LABS: A. calcoaceticus-baumannii Cpx NOT DETECTED (NOT DETECTE); Bacteroides fragilis NOT DETECTED (NOT DETECTE); Candida auris NOT DETECTED (NOT DETECTE); Candida glabrata NOT DETECTED (NOT DETECTE); Enterobacterales NOT DETECTED (NOT DETECTE); Enterococcus faecalis NOT DETECTED (NOT DETECTE); Enterococcus faecium NOT DETECTED (NOT DETECTE); Klebsiella aerogenes NOT DETECTED (NOT DETECTE); Klebsiella pneumoniae group NOT DETECTED (NOT DETECTE); Proteus spp. NOT DETECTED (NOT DETECTE); Salmonella spp. NOT DETECTED (NOT DETECTE); Serratia marcescens NOT DETECTED (NOT DETECTE); Staphylococcus epidermidis NOT DETECTED (NOT DETECTE); Staphylococcus lugdunensis NOT DETECTED (NOT DETECTE); Staphylococcus spp. NOT DETECTED (NOT DETECTE); Stenotrophomonas maltophilia NOT DETECTED (NOT DETECTE); Streptococcus pyogenes NOT DETECTED (NOT DETECTE)
[2025-01-30 22:12] LABS: Source Blood
[2025-01-30 22:16] LABS: Streptococcus spp. DETECTED (NOT DETECTE)
[2025-01-30] MEDS: AMITRIPTYLINE HCL 25 MG TABLET PO (22:44)
[2025-01-31] VITALS (7 sets, daily range): BP systolic 123–142; BP diastolic 75–90; PULSE 84–103; TEMP 36.5–37.7; O2SAT 98–99
[2025-01-31] MEDS: OXYCODONE HCL 5 MG TABLET PO ×2 (02:06→17:01)
[2025-01-31] MEDS: ERTAPENEM SODIUM 1 GM in 0.9 % SODIUM CHLORIDE 50 ML IV (02:58)
[2025-01-31 06:12] LABS: Alanine Aminotransferase 61 U/L (14-59); Albumin Globulin Ratio 0.8; Albumin Level 2.8 g/dL (3.4-5.0); Alkaline Phosphatase 65 U/L (46-116); Anion Gap 18.1; Aspartate Amino Transferase 114 U/L (15-37); Blood Urea Nitrogen 2.0 mg/dL (7.0-18.0); Calcium 7.8 mg/dL (8.5-10.1); Carbon Dioxide 22.7 mmol/L (21.0-32.0); Chloride 96 mmol/L (98-107); Estimated GFR (African America >60 (>=60 mL/min/1.73m^2); Estimated GFR (Non-African Ame >60 (>=60 mL/min/1.73m^2); Globulin 3.4 g/dL; Glucose 67 mg/dL (74-106); Potassium 3.8 mmol/L (3.5-5.1); Sodium 133 mmol/L (136-145); Total Protein 6.2 g/dL (6.4-8.2)
[2025-01-31 06:15] LABS: Lipase 1463.0 U/L (16.0-77.0)
[2025-01-31 06:16] LABS: Magnesium 1.8 mg/dL (1.8-2.4)
[2025-01-31] MEDS: DICYCLOMINE HCL 10 MG CAPSULE PO (06:20)
[2025-01-31] MEDS: PANTOPRAZOLE SODIUM 40 MG VIAL IV ×2 (06:20→18:58)
--- NOTE | 2025-01-31 08:30 | CM.NOTE ---
Rounds made with Dr. Almaguer, discussed plan of care with pt. Discussed with pt blood cultures, MRCP and lab work. No discharge today.
[2025-01-31] MEDS: SOD PHOSPHATE,MONOBASIC-DIBAS 30 MMOL in 0.9 % SODIUM CHLORIDE 250 ML 43.333 MMOL IV (09:04)
[2025-01-31] MEDS: POTASSIUM CHLORIDE 10 MEQ ER TABLET 20 MEQ PO (09:04)
[2025-01-31] MEDS: ENOXAPARIN SODIUM 40 MG/0.4 ML SYRINGE SUBQ (09:05)
[2025-01-31] MEDS: HYDROMORPHONE HCL 0.5 MG/0.5 ML SYRINGE IV (09:05)
[2025-01-31] MEDS: SERTRALINE HCL 100 MG TABLET 50 MG PO (09:06)
--- NOTE | 2025-01-31 10:21 | PM.PN ---
Progress Note: Subjective Subjective Interval history: Follow-up on the patient. Patient is feeling better. Less pain and discomfort. Persistent vomiting but less intense. No fever or chills. Exam Narrative Exam Narrative: [pt is awake and alert. oriented to place, time and person HEENT: [place] conjunctiva and NL buccal mucosa Neck: Supple, no tenderness Endocrine: No Thyromegaly. Vascular: No JVD or carotid bruit. Lymphatic: No cervical lymphadenopathy. Chest: CTA no DTP. Heart RRR, no extra sound or murmur. Abd: Soft, mild diffuse tenderness in the abdomen including right upper quadrant, most notably is in the epigastric and periumbilical area. No rebound and no rigidity. Increase abd girth therefore clinically I could not exclude the possibility of intra abd mass or organomegaly. LE: No cyanosis or clubbing, no varices or edema. Neuro: A A O. Nl speech, comprehension and attention. Nl and symetrical motor and tone examination through out. []] Constitutional Vital Signs, click to edit/add: Last Vital Signs Temp 99.8 F 01/31/25 07:36 Pulse 97 H 01/31/25 07:36 Resp 14 01/31/25 07:36 BP 136/88 01/31/25 07:36 Pulse Ox 98 01/31/25 07:36 O2 Del Method Room Air 01/31/25 07:36 Progress Note: Objective Labs Labs: [facility] 01/31/25 05:19 Sodium 133 L Potassium 3.8 Chloride 96 L Carbon Dioxide 22.7 BUN 2.0 L Creatinine 0.55 Glucose 67 L Calcium 7.8 L Liver Function 01/31/25 Range/Units 05:19 Total Bilirubin 2.2 H (0.2-1.0) mg/dL Direct Bilirubin 0.7 H* (0.0-0.2) mg/dL AST 114 H (15-37) U/L ALT 61 H (14-59) U/L Alkaline Phosphatase 65 (46-116) U/L Albumin 2.8 L (3.4-5.0) g/dL Progress Note: A&P Assessment and Plan (1) Acute lactic acidosis: (2) Abdominal pain: (3) Dehydration: (4) Elevated liver enzymes: (5) Acute pancreatitis: (6) Hypomagnesemia: (7) Hypophosphatemia: (8) Bacteremia: Plan Acute pancreatitis. Unknown trigger. Patient denied any alcohol consumption. Could have been caused by passed gallstone. SIRS present on admission, severe lactic acidosis, abdominal pain, nausea and vomiting. Bacteremia. Blood culture is coming back positive for Streptococcus which is probably secondary to bacterial translocation secondary to pancreatitis Continue IV fluid infusion. MRCP does not show any common bile duct stone or cholecystectomy LFTs are trending back down. Lipase is climbing up however her symptoms are decreasing in intensity. Consideration for elective cholecystectomy. Continue ertapenem that I started her on admission. Waiting for final blood culture identification and sensitivity. Repeat blood culture today. Esophagitis seen on CT Continue PPI intravenously twice a day. Elevated LFTs. History of fatty infiltration of the liver for which patient follows up with Dr. Gill Acute elevation could be reactive to acute pancreatitis or possibility of passed common bile duct stone. Patient has had this similar episode in the past. No alcohol consumption. Elevation mostly on behalf of the indirect bilirubin. Alk phos is normal. Transaminase are elevated as well. Trending back to normal Hepatitis panel is negative [place] screen is negative Vaping Counseling and education to quit Hypomagnesemia and hypophosphatemia Potassium, phosphorus and magnesium supplementation. Depression and anxiety. Patient is on SSRI that could cause cholestasis picture. Reduce the dose of sertraline DVT prophy Lovenox subcu
[2025-01-31] MEDS: MAGNESIUM SULFATE/D5W 1 GM/100 ML PREMIX IV (15:01)
[2025-01-31] MEDS: MAGNESIUM HYDROXIDE 2,400 MG/10 ML ORAL.SUSP 2400 MG PO (15:45)
[2025-01-31] MEDS: SENNOSIDES/DOCUSATE SODIUM 1 TAB TABLET 2 TAB PO (15:45)
[2025-01-31] MEDS: SOD PHOSPHATE,MONOBASIC-DIBAS 15 MMOL in 0.9 % SODIUM CHLORIDE 100 ML 26.25 MMOL IV (20:29)
[2025-01-31] MEDS: PREGABALIN 50 MG CAPSULE PO (21:55)
[2025-01-31] MEDS: AMITRIPTYLINE HCL 25 MG TABLET PO (21:56)
[2025-02-01] VITALS: BP 112/79; PULSE 122; TEMP 37.2; O2SAT 97
--- NOTE | 2025-02-01 02:51 | PC.NURSE ---
[address], RN heard alarm at exit door. [facility] [employer] notified and called security. RN followed patient downstairs and out the back door with [facility] and security. Pt fount in parking lot on phone with mother and disoriented to place. Patient stated she woke up in a basement and was trying to get home, did not remember she was in the hospital. Pt appeared to be anxious and scared. [facility] [employer] [facility] walked patient back to floor. Pt became oriented to place and situation. Vital obtained when back in room BP 104/74, P 142, RR 24, SpO2 96% RA. Pt stated sjhe wanted to go home, document control supervisor was able to talk to her and patient is ok staying for the night. pt in bed on phone with family member, call light in reach. Denies any needs at this time.
[2025-02-01] MEDS: ERTAPENEM SODIUM 1 GM in 0.9 % SODIUM CHLORIDE 50 ML IV (03:12)
[2025-02-01 04:00] VITALS: BP 120/85; PULSE 99; TEMP 36.7; O2SAT 99
--- NOTE | 2025-02-01 05:36 | PC.NURSE ---
0447 Patient seen exiting room, RN stopped patient and guided back to room. Patient states she hears her brother snoring in her bed. Pt also states her dad is coming to pick her up and she wants to leave. RN explained risks of leaving and patient agrees to stay. Patient in bed resting with call light in reach, no other needs at this time.
[2025-02-01] MEDS: PANTOPRAZOLE SODIUM 40 MG VIAL IV (06:13)
[2025-02-01 06:31] LABS: Alanine Aminotransferase 53 U/L (14-59); Albumin Globulin Ratio 0.9; Albumin Level 3.0 g/dL (3.4-5.0); Alkaline Phosphatase 66 U/L (46-116); Anion Gap 16.7; Aspartate Amino Transferase 78 U/L (15-37); Calcium 8.1 mg/dL (8.5-10.1); Carbon Dioxide 24.9 mmol/L (21.0-32.0); Chloride 96 mmol/L (98-107); Estimated GFR (African America >60 (>=60 mL/min/1.73m^2); Estimated GFR (Non-African Ame >60 (>=60 mL/min/1.73m^2); Globulin 3.5 g/dL; Glucose 68 mg/dL (74-106); Potassium 3.6 mmol/L (3.5-5.1); Sodium 134 mmol/L (136-145); Total Protein 6.5 g/dL (6.4-8.2)
[2025-02-01 06:45] LABS: Blood Urea Nitrogen 2.0 mg/dL (7.0-18.0)
[2025-02-01 07:07] LABS: Lipase 1592.0 U/L (16.0-77.0)
--- NOTE | 2025-02-01 08:00 | CM.NOTE ---
Rounds made with Dr. Almaguer, pt continues with hallucinations. Dr. Almaguer discussed plan of care with pt and changed antibiotics d/t hallucinations.
[2025-02-01 08:04] VITALS: BP 136/86; PULSE 107; TEMP 36.8; O2SAT 98
--- NOTE | 2025-02-01 08:09 | PC.NURSE ---
Pt is alert and oriented when asked direct questions, however without ask direct questions patient has said she is in her house, that she needs to get to the living room, and attempting to run out of the room. Finish Repair Worker reoriented pt and patient then stated she knew she was in the hospital again.
--- NOTE | 2025-02-01 08:27 | PC.NURSE ---
Patient hallucinating her brother and nephews by the door and asked why can I see them but they can't hear me writer producer attempted to reorient patient and informed pt that they were not there and patient responded with because my mental health is fucked writer producer tried to reassure patient that the physician thinks it is a side effect from medication and is going to change things around and is hopeful that will improve the symptoms. Patient agreed but got very tearful and layed down in the bed.
--- NOTE | 2025-02-01 08:38 | P.PN_ITS ---
Progress Note: Subjective Subjective Interval history: Follow-up on the patient. Overnight, patient developed confusion, disorientation, restlessness, visual hallucination No further vomiting. Patient reported that her abdominal pain had subsided. No bowel movement yet Exam Narrative Exam Narrative: Patient is having visual hallucination. Oriented to place and person. She remembers me and nursing staff from yesterday. Moving all of her extremities. No distress otherwise. Chest is clear, heart regular. Abdomen is soft. Less tender epigastric area. Constitutional Vital Signs, click to edit/add: Last Vital Signs Temp 98.2 F 02/01/25 08:04 Pulse 107 H 02/01/25 08:04 Resp 16 02/01/25 08:04 BP 136/86 02/01/25 08:04 Pulse Ox 98 02/01/25 08:04 O2 Del Method Room Air 02/01/25 08:04 Progress Note: Objective Labs Labs: [facility] 02/01/25 05:36 Sodium 134 L Potassium 3.6 Chloride 96 L Carbon Dioxide 24.9 BUN 2.0 L Creatinine 0.58 Glucose 68 L Calcium 8.1 L Liver Function 02/01/25 Range/Units 05:36 Total Bilirubin 2.6 H (0.2-1.0) mg/dL Direct Bilirubin 0.9 H* (0.0-0.2) mg/dL AST 78 H (15-37) U/L ALT 53 (14-59) U/L Alkaline Phosphatase 66 (46-116) U/L Albumin 3.0 L (3.4-5.0) g/dL Progress Note: A&P Assessment and Plan (1) Acute lactic acidosis: (2) Abdominal pain: (3) Dehydration: (4) Elevated liver enzymes: (5) Acute pancreatitis: (6) Hypomagnesemia: (7) Hypophosphatemia: (8) Bacteremia: (9) Acute delirium: Plan Acute pancreatitis. Unknown trigger. Patient denied any alcohol consumption. Could have been caused by passed gallstone. SIRS present on admission, severe lactic acidosis, abdominal pain, nausea and vomiting. Bacteremia. Blood culture is coming back positive for Streptococcus which is probably secondary to bacterial translocation secondary to pancreatitis Continue IV fluid infusion. MRCP does not show any common bile duct stone or cholecystectomy LFTs are trending back down. Lipase is climbing up however her symptoms are decreasing in intensity. Resolution of nausea vomiting and improvement of abdominal pain intensity Consideration for elective cholecystectomy. Ertapenem will be changed to ceftriaxone due to acute delirium as listed below Waiting for final blood culture identification and sensitivity. Repeat blood culture on 01/31. Acute delirium that developed last evening manifested by confusion, visual hallucination. Likely caused by ertapenem. Discontinued ertapenem and started her on ceftriaxone. Continue to monitor condition. Esophagitis seen on CT Continue PPI intravenously twice a day. Elevated LFTs. History of fatty infiltration of the liver for which patient follows up with Dr. Gill Acute elevation could be related to sepsis or reactive to acute pancreatitis or possibility of passed common bile duct stone. Patient has had this similar episode in the past. No alcohol consumption. Elevation mostly on behalf of the indirect bilirubin. Alk phos is normal. Transaminase are elevated as well. Trending back to normal Hepatitis panel is negative [place] screen is negative Vaping Counseling and education to quit Hypomagnesemia and hypophosphatemia Additional potassium, phosphorus and magnesium supplementation. Depression and anxiety. Patient is on SSRI that could cause cholestasis picture. Reduce the dose of sertraline DVT prophy Lovenox subcu
[2025-02-01] MEDS: POTASSIUM CHLORIDE 10 MEQ ER TABLET 20 MEQ PO ×2 (08:39→21:54)
[2025-02-01] MEDS: ALPRAZOLAM 1 MG TABLET PO ×2 (08:39→21:54)
[2025-02-01] MEDS: ENOXAPARIN SODIUM 40 MG/0.4 ML SYRINGE SUBQ (08:39)
[2025-02-01] MEDS: SERTRALINE HCL 100 MG TABLET 50 MG PO (08:39)
[2025-02-01] MEDS: SENNOSIDES/DOCUSATE SODIUM 1 TAB TABLET 2 TAB PO (08:40)
[2025-02-01] MEDS: METHYLNALTREXONE BROMIDE 12 MG/0.6 ML VIAL SUBQ (09:11)
[2025-02-01] MEDS: MAGNESIUM HYDROXIDE 2,400 MG/10 ML ORAL.SUSP 2400 MG PO (09:12)
[2025-02-01] MEDS: SOD PHOSPHATE,MONOBASIC-DIBAS 30 MMOL in 0.9 % SODIUM CHLORIDE 250 ML 43.333 MMOL IV ×2 (09:21→22:36)
[2025-02-01] MEDS: ZIPRASIDONE MESYLATE 20 MG VIAL 10 MG IM (12:00)
[2025-02-01] MEDS: WATER FOR INJECTION, STERILE 20 ML VIAL INJ (12:00)
[2025-02-01 17:34] VITALS: BP 121/79; PULSE 110; TEMP 36.8; O2SAT 98
[2025-02-01] MEDS: ACETAMINOPHEN 325 MG TABLET 650 MG PO (18:52)
[2025-02-01 20:00] VITALS: BP 124/79; PULSE 105; TEMP 36.9; O2SAT 97
[2025-02-01] MEDS: QUETIAPINE FUMARATE 25 MG TABLET PO (21:54)
[2025-02-01] MEDS: PANTOPRAZOLE SODIUM 40 MG TABLET.DR PO (21:54)
[2025-02-01 23:42] VITALS: BP 122/80; PULSE 97; TEMP 36.9; O2SAT 95
[2025-02-02 06:00] VITALS: BP 113/76; PULSE 126; TEMP 37.6; O2SAT 95
[2025-02-02 06:43] LABS: Alanine Aminotransferase 36 U/L (14-59); Albumin Globulin Ratio 0.7; Albumin Level 2.4 g/dL (3.4-5.0); Alkaline Phosphatase 55 U/L (46-116); Anion Gap 12.0; Aspartate Amino Transferase 39 U/L (15-37); Blood Urea Nitrogen 3.0 mg/dL (7.0-18.0); Calcium 8.0 mg/dL (8.5-10.1); Carbon Dioxide 28.8 mmol/L (21.0-32.0); Chloride 103 mmol/L (98-107); Estimated GFR (African America >60 (>=60 mL/min/1.73m^2); Estimated GFR (Non-African Ame >60 (>=60 mL/min/1.73m^2); Globulin 3.5 g/dL; Glucose 101 mg/dL (74-106); Lipase 781.0 U/L (16.0-77.0); Magnesium 1.9 mg/dL (1.8-2.4); Potassium 3.8 mmol/L (3.5-5.1); Sodium 140 mmol/L (136-145); Total Protein 5.9 g/dL (6.4-8.2)
[2025-02-02] MEDS: SENNOSIDES/DOCUSATE SODIUM 1 TAB TABLET 2 TAB PO (08:36)
[2025-02-02] MEDS: ENOXAPARIN SODIUM 40 MG/0.4 ML SYRINGE SUBQ (08:36)
[2025-02-02] MEDS: PANTOPRAZOLE SODIUM 40 MG TABLET.DR PO (08:37)
[2025-02-02] MEDS: SERTRALINE HCL 100 MG TABLET 50 MG PO (08:37)
--- NOTE | 2025-02-02 09:25 | PM.DS1 ---
DS: Providers Provider Date of admission: 01/30/25 08:51 Primary care physician: CAMELIA ROGER DS: Diagnosis Discharge Diagnosis (1) Acute lactic acidosis: (2) Abdominal pain: (3) Dehydration: (4) Elevated liver enzymes: (5) Acute pancreatitis: (6) Hypomagnesemia: (7) Hypophosphatemia: (8) Bacteremia: (9) Acute delirium: Plan As listed above, below and others that are not listed DS: Summary Hospital Course Hospital Course: Mrs Wallace is a 29-year-old female who with nausea, vomiting and abdominal pain. She was found to have the following: Acute pancreatitis. Unknown trigger. Patient denied any alcohol consumption. Could have been caused by passed gallstone. Resolving SIRS present on admission, severe lactic acidosis, abdominal pain, nausea and vomiting. Resolved Bacteremia. 1 out of 2 blood culture is coming back positive for Streptococcus which is probably secondary to bacterial translocation secondary to pancreatitis Continue IV fluid infusion. Completed MRCP does not show any common bile duct stone or cholecystectomy LFTs are trending back down. Lipase is trending down significantly Significant improvement and resolution of her abdominal pain and tenderness Complete resolution of nausea and vomiting Consideration for elective cholecystectomy. To be addressed in the outpatient setting by Dr. Gill. Patient follows up with him regularly regarding her liver disease Ertapenem will be changed to ceftriaxone due to acute delirium as listed below. Patient will be discharged home on oral Augmentin. Repeat blood culture on 01/31 thus far is negative. Acute delirium that developed last evening manifested by confusion, visual hallucination. Likely caused by ertapenem. Discontinued ertapenem and started her on ceftriaxone. Completely resolved Esophagitis seen on CT Continue PPI intravenously twice a day. Patient is on PPI at home Pancreatitis and/or opiates induced ileus Resolved. Patient has had multiple bowel movements. Elevated LFTs. History of fatty infiltration of the liver for which patient follows up with Dr. Gill Acute elevation could be related to sepsis or reactive to acute pancreatitis or possibility of passed common bile duct stone. Patient has had this similar episode in the past. No alcohol consumption. Elevation mostly on behalf of the indirect bilirubin. Alk phos is normal. Bilirubin is trending up Transaminase are elevated as well. Trending back to normal Hepatitis panel is negative [place] screen is negative FERNY is negative. Smooth muscle antibody is negative Acetaminophen level is negative. Patient is to follow-up with Dr. Gill. Vaping Counseling and education to quit Hypomagnesemia and hypophosphatemia. Resolved, corrected Additional potassium, phosphorus and magnesium supplementation. Depression and anxiety. Patient is on SSRI that could cause cholestasis picture. Reduce the dose of sertraline DVT prophy Lovenox subcu Chronic medical conditions not listed above, incidental findings seen on labs and imaging. These would need to be addressed. Could be addressed when time and condition are appropriate. Could be addressed in the outpatient setting by PCP collaboration with other needed outpatient providers. Patient has multiple medical issues as listed above and others that are not listed. All appear to be stable. Patient is feeling great. Significant resolution of her abdominal tenderness. Complete resolution of nausea and vomiting. Significant correction of her metabolic derangement as listed above. LFTs and lipase are trending down. Low phosphorus and magnesium have been corrected. I do not have any clear or strong clinical justification to extend inpatient hospitalization. Patient however will require close and frequent monitoring as well as additional work-up, investigation and therapeutic intervention that could take place from this point on post discharge. That is to prevent relapse, decompensation, rehospitalization and other medical implications. I instructed patient to ask her primary care doctor to obtain [facility] record entirely to address abnormalities seen on labs and imaging that I have and have not addressed during this hospitalization, follow-up on pending blood work, imaging and pathology is if available and to follow-up on needed medical care in the outpatient setting. Time Spent with Patient Time attestation: Total time spent providing and/or coordinating discharge services: Exam Narrative Exam Narrative: Patient is feeling significantly better. Complete resolution of the acute delirium. Awake and oriented. Coherent. Able to focus. Able to engage. No distraction. No hallucination. No delusion. Chest is clear, heart is regular. Abdomen soft, mild residual tenderness in the epigastric area. No guarding, no rebound. Patient is tolerating her diet. Constitutional Vital Signs, click to edit/add: Last Vital Signs Temp 99.7 F 02/02/25 06:00 Pulse 126 H 02/02/25 06:00 Resp 18 02/02/25 06:00 BP 113/76 02/02/25 06:00 Pulse Ox 95 02/02/25 06:00 O2 Del Method Room Air 02/02/25 06:00 DS: Data Data Completed and Pending Labs on day of discharge: Labs from last 24 hours 02/02/25 06:12 Sodium 140 Potassium 3.8 Chloride 103 Carbon Dioxide 28.8 Anion Gap 12.0 BUN 3.0 L Creatinine 0.50 L Est GFR ( Amer) >60 Est GFR (Non-Af Amer) >60 BUN/Creatinine Ratio 6.0 Glucose 101 Calcium 8.0 L Phosphorus 3.3 Magnesium 1.9 Total Bilirubin 1.2 H Direct Bilirubin 0.5 H AST 39 H ALT 36 Alkaline Phosphatase 55 Total Protein 5.9 L Albumin 2.4 L Globulin 3.5 Albumin/Globulin Ratio 0.7 Lipase 781.0 H Preliminary micro results at discharge 01/30/25 02:25 Aerobic Susc Result 2 - Preliminary Blood - Right Antecubital Anaerobe Identification - Preliminary 01/30/25 02:25 Blood Culture Result 1 - Preliminary Blood - Right Antecubital 01/30/25 03:16 Blood Culture Result 2 - Preliminary Blood - Left Antecubital NO GROWTH AT 36-48 HOURS. FINAL TO FOLLOW. Discharge Plan Discharge Disposition: Home, Self-Care Discharge Medications: New sennosides-docusate sodium [Senna Plus] 8.6-50 mg Tablet 2 tab PO QD PRN (Reason: constipation) Qty: 30 0RF amoxicillin-pot clavulanate 875-125 mg tablet 1 tab PO BID Qty: 10 0RF Continued rizatriptan 10 mg tablet 10 mg PO Q2H PRN (Reason: migraine headache) Patient Comments: Take 1 tablet just after onset OF FOR MIGRAINE. May repeat the dose after 2 (TWO) hours if FOR MIGRAINE persists. Max OF 2 (TWO) doses per 24 hours sertraline 100 mg tablet 100 mg PO Q24H omeprazole 40 mg capsule,delayed release(DR/EC) 40 mg PO BID amitriptyline 25 mg tablet 25 mg PO .QHS norgestimate-ethinyl estradiol [Tri-Sprintec (28)] 0.18/0.215/0.25 mg-0.035mg (28) tablet 1 tab PO .QD ondansetron 4 mg tablet,disintegrating 4 mg PO Q8H PRN (Reason: nausea and vomiting) Print Language: [place] Citizen Activity Restrictions/Additional Instructions: I may not have addressed or treated all of your medical illnesses or the abnormal blood work or imaging studies during this hospitalization. Please ask your primary care provider to obtain [facility] records entirely to follow up on all of the abnormal physical, laboratory, and imaging findings that I have not addressed. Please return back to the emergency room or seek medical attention if your symptoms worsen or return. Discharging you from [facility] does not mean that your medical care ends here and now. You may still need additional monitoring, work up, investigation, and treatment plan to be handled from this point on by out patient providers including your primary care provider and specialists. For any medication question, please contact your retail pharmacist or your primary care provider. Thank you. Forms: Portal Instructions Referrals: Kenrick Gill MD [Physician] CAMELIA ROGER [Primary Care Provider, Family Practice]
--- NOTE | 2025-02-04 10:43 | PC.NURSE ---
James. 02/12 @ [facility] with Dr. Childress [phone]
--- NOTE | 2025-02-04 13:58 | CM.DCFOLLOWU ---
1st attempt 02/04/25, no answer
--- NOTE | 2025-02-05 13:57 | CM.DCFOLLOWU ---
2nd attempt 02/05/25, no answer
--- NOTE | 2025-02-06 15:49 | SWNOTE1 ---
SW did contact pt and let her know that we were able to schedule her an appointment with Dr. Childress on February 12 at 11:00am. Pt stated she has been trying to call Dr De Guzman office and nobody has returned her call. SW advsied that our departmental secretary also called and they voiced they would call back once they verify with provider. She voiced they keep telling her they do not take her insurance, but they have seen her several times and she has same insurance. She is going to speak with Dr. Childress at follow up and see if he has any recommendations for another Gastro.
--- NOTE | 2025-02-06 15:51 | CM.DCFOLLOWU ---
Person spoke with:patient How are you feeling?well, much better How is your pain?none, just a little weaker from being in hospital bed for so long Did you understand your discharge instructions?yes Do you have any questions about your discharge instructions?no Were you given any prescriptions at discharge?yes Were you able to get your prescriptions filled?yes Do you understand how to take your medications as ordered?yes Do you have any questions about your follow up appointment and do you plan to keep your follow up appointment? no questions, let her know follow up was scheduled and provided time. She is going to speak with PCP about a different Gastro. Is there anything else that you would like to discuss?no Questions/Comments/Concerns/Other:none
== END 2025-02-02 10:52 | disposition home or self-care (01) | DRG 282 ==
LOC: ER 01-30 00:39 → MS 01-30 01:00
PROVIDERS: Physician Assistant; Admitting Provider Internal Medicine; Emergency Provider Internal Medicine; PCP Family Medicine; Visit Provider Internal Medicine
DX: K85.90 Acute pancreatitis without necrosis or infection, unspecified (principal); E83.42 Hypomagnesemia; K76.0 Fatty (change of) liver, not elsewhere classified; E83.39 Other disorders of phosphorus metabolism; J45.909 Unspecified asthma, uncomplicated; Z90.49 Acquired absence of other specified parts of digestive tract; F17.290 Nicotine dependence, other tobacco product, uncomplicated; Z63.5 Disruption of family by separation and divorce; Z79.899 Other long term (current) drug therapy; E86.0 Dehydration; E87.21 Acute metabolic acidosis; R78.81 Bacteremia; K20.90 Esophagitis, unspecified without bleeding; K51.90 Ulcerative colitis, unspecified, without complications; R74.8 Abnormal levels of other serum enzymes; R65.10 Systemic inflammatory response syndrome (SIRS) of non-infectious origin without acute organ dysfunction; R11.2 Nausea with vomiting, unspecified; F32.A Depression, unspecified; F41.9 Anxiety disorder, unspecified; R41.0 Disorientation, unspecified; R45.1 Restlessness and agitation; R44.1 Visual hallucinations; B95.5 Unspecified streptococcus as the cause of diseases classified elsewhere; T36.8X5A Adverse effect of other systemic antibiotics, initial encounter; K56.7 Ileus, unspecified; T40.605A Adverse effect of unspecified narcotics, initial encounter
CPT/HCPCS: 36415; 74177; 74181; 80048; 80074; 80076; 80307; 80329; 81001; 82140; 83516; 83605; 83690; 83735; 84100; 84703; 85007; 85027; 85610; 86038; 86140; 86308; 87040; 87077; 87150; 87186; 96361; 96374; 96375; 96376; 99285; 99406; J0500; J0696; J1171; J1200; J1335; J1650; J2212; J2405; J2765; J3360; J3475; J3486; Q9967